=== PATIENT | female | born 1950 | race Caucasian/White ===

== ENCOUNTER 2017-06-17 22:00 | Observation (INO) | payer MEDICARE, OTHER, SELFPAY ==
[2017-06-17 22:01] VITALS: BP 132/62; PULSE 107; RESP 20; TEMP 36.7; O2SAT 94; BMI 43.1
--- NOTE | 2017-06-17 22:10 | EKG12_ITS ---
Test Reason : REPEAT Blood Pressure : / mmHG Vent. Rate : 091 BPM Atrial Rate : 091 BPM P-R Int : 172 ms QRS Dur : 084 ms QT Int : 376 ms P-R-T Axes : 035 -07 002 degrees QTc Int : 462 ms Normal sinus rhythm Normal ECG Confirmed by BRONWYN CUNNINGHAM MD ([id number]), editorial specialist EREN MELENDEZ ([id number]) on 06/18/2017 2:30:58 PM Referred By: ANDREI Confirmed By:BRONWYN CUNNINGHAM MD
--- NOTE | 2017-06-17 22:10 | NURSING ---
RN CALLED FOR EKG, PULLED OLD EKG FOR
--- NOTE | 2017-06-17 22:11 | RAD_ITS ---
STUDY: X-RAY CHEST REASON FOR EXAM: Female, 67 years old. Chest and mid back pain TECHNIQUE: Single AP portable view of the chest. COMPARISON: None. FINDINGS: monitoring specialist leads are present. The lungs are clear and expanded. There is no demonstrated pleural abnormality. There is mammillation of the hemidiaphragms which is of little clinical significance. Normal size heart. There is a retrocardiac double density consistent with moderate-sized hiatal hernia. Normal visualized pulmonary arteries. There are calcified plaques of the aortic arch. Normal visualized thoracic spine. Normal visualized ribs, clavicles, and shoulders. There is no demonstrated abnormality of the visualized soft tissue structures of the upper abdomen. RAD/Chest 1 View (Portable) IMPRESSION: Moderate sized hiatal hernia. Calcified plaques of the aortic arch. No acute cardiopulmonary disease process is seen. Electronically Signed: Artie Lin MD at 22:53 EST , Service support ,
[2017-06-17 22:13] VITALS: O2SAT 100
--- NOTE | 2017-06-17 22:14 | ED.DCSUM_ITS ---
- ER Visit Summary Date of Service: 06/17/17 Chief Complaint: Back pain, chest pain History of Present Illness: The patient is a 67 F 3 significant for prior stroke and hypertension but no known history of coronary vascular disease presents with atraumatic back pain that radiates into her left chest. The patient states her symptoms began about 2 days ago. She states that she noticed a dull ache in her left back between her shoulder blades. She states that the symptoms seem to be made worse when she would exert herself. Over the past 24 hours, it has radiated to her left chest. She states if she gets up and walks around, the pain seems to get worse and she will feel mildly short of breath and did get some nausea with it. She states she has never had pain like this before. She denies any fall. She has no history of pulmonary embolus. She has no known history of coronary vascular disease but does have history of prior stroke. She does not take anticoagulants. She denies having a recent stress test. Physical Examination: Vital signs reviewed General: Well-nourished, well-developed Head: Normocephalic, atraumatic Eyes: Pupils equal and reactive, extraocular muscles intact Neck, supple, no lymphadenopathy Heart: Regular rate and rhythm Respiratory: No distress, clear bilaterally Abdomen: Soft, nontender, nondistended, no peritoneal signs Back: Nontender Extremities: Nontender, no edema, no cords Skin: Normal color no rash Neuro: Alert and oriented, no focal or lateralizing deficits Test Results: EKG demonstrates sinus tachycardia. Screening labs relatively unremarkable. Chest x-ray demonstrates hiatal hernia but no other acute pathology. CTA of the chest shows no pulmonary embolus or dissection. Emergency Department Course and Treatment: The patient presents with back pain that began to radiate into her left chest. It is worse with exertion. She denies any history of coronary vascular disease, but does have history of prior stroke. She has not had a recent stress test. The patient was tachycardic. Initially on arrival, she was pain-free. However, her pain did return. I did repeat her EKG and it was still unremarkable without acute ischemic change. Labs relatively unremarkable. Cardiac enzymes are normal. The patient's tachycardia, back pain, and exertional dyspnea I did obtain a CTA which demonstrates a hiatal hernia, but no pulmonary embolus or other dangerous process.. At this time, I do feel the patient would benefit from admission for cardiac rule out given her age, risk factor, and exertional component. Patient was discussed with the hospitalist and will be admitted. Treatment Plan: [] Disposition: Admission Impression: Exertional chest pain with dyspnea This note was generated with [employer] dictation software. It may contain incorrect words, spelling, and punctuation that were not noted in review of the chart prior to signing ED Disposition - Plan for ED Patient: Chief Complaint: Chest Pain Referrals: Jeferson Vega MD [Primary Care Provider] -
[2017-06-17 22:18] LABS: Absolute Lymphocyte Count 3.27 X10^3/ul (0.83-4.51); Absolute Neutrophil Count 7.1 X10^3/uL (2.0-7.7); Basophil# 0.03 X10^3/uL; Basophil% 0.3 % (0-1); Eosinophil# 0.69 X10^3/uL; Eosinophils% 5.8 % (0-5); Hematocrit 38.7 % (37-47); Hemoglobin 12.7 g/dl (12.0-15.0); Lymphocyte # 3.27 X10^3/ul (4.0); Lymphocyte % 27.6 % (19-41); Mean Corp Hgb Conc 32.8 g/gl (32-36); Mean Corpuscular Hgb 28.2 pg (27.0-32.0); Mean Platelet Vol. 9.1 fl (6.2-12.0); Monocyte% 5.9 % (0-10); Neutrophil # 7.12 X10^3/uL (2.7-7.7); Neutrophil % 60.1 % (47-70); POSITIVE COUNT NO; POSITIVE DIFFERENTIAL NO; POSITIVE MORPHOLOGY NO; Platelet Count 225 K/mm3 (150-450); RBC Distribution Width CV 13.4 % (11.6-14.6); RBC Distribution Width SD 41.3 fl (35.1-43.9); White Blood Count 11.8 K/mm3 (4.4-11.0)
[2017-06-17] MEDS: Aspirin 81 MG TAB.CHEW 324 MG PO (22:19)
--- NOTE | 2017-06-17 22:34 | EKG12_ITS ---
Test Reason : CP Blood Pressure : / mmHG Vent. Rate : 111 BPM Atrial Rate : 111 BPM P-R Int : 178 ms QRS Dur : 078 ms QT Int : 334 ms P-R-T Axes : 044 005 018 degrees QTc Int : 454 ms Sinus tachycardia Otherwise normal ECG Confirmed by MARISA SCHULZ, BRONWYN ([id number]), brands editor EREN MELENDEZ ([id number]) on 06/18/2017 2:31:16 PM Referred By: TRINITY Confirmed By:BRONWYN CUNNINGHAM MD
--- NOTE | 2017-06-17 22:36 | CT_ITS ---
STUDY: CTA CHEST REASON FOR EXAM: Female, 67 years old. Chest and back pain x2 days RADIATION DOSAGE (If Supplied By Facility): CTDIvol = ( 26.27 ) mGy, DLP = ( 728.22 ) mGycm TECHNIQUE: The examination was performed with the intravenous administration of 100ML ml of Isovue 370 contrast material. Post-processing of the angiographic images was performed, with multiplanar reformation and 3D reconstruction. Individualized dose optimization techniques were used for this CT. COMPARISON: None. FINDINGS: Normal enhancement of the main pulmonary artery and right and left pulmonary arteries. Normal enhancement of the bilateral peripheral pulmonary arteries. There is no demonstrated pulmonary embolism. Normal thoracic aorta and visualized great vessels. There is no demonstrated aortic dissection. Normal heart and pericardium. There is a large hiatal hernia. There are several mediastinal nodes, the largest located in the region of the AP window measuring 1.2 cm in short axis. There is a precarinal node measuring 8 mm in short axis. Normal visualized trachea and bronchi. The lungs are well expanded. There are coarse fibrotic changes of the right upper lobe. There is a flat plaque-like focus of pleural thickening of the posterior lower left hemithorax measuring 8 mm at the base. Normal chest wall structures. There is diffuse endplate spondylosis of the visualized thoracolumbar spine. Calcified gallstones are seen within the gallbladder. CT/CTA Chest W/WO Contrast IMPRESSION: Normal CTA chest examination, without a demonstrated pulmonary embolism or arterial dissection. Large hiatal hernia. Coarse fibrotic changes of the right upper lobe. plaque-like focus of pleural thickening of the posterolateral lower left hemithorax measuring 8 mm at the base. Cholelithiasis. Electronically Signed: Artie Lin MD at 23:46 EST , Service support ,
[2017-06-17 22:41] LABS: Anion Gap 6 (5-15); BUN 20 mg/dL (7-18); BUN/Creat Ratio 17.1 RATIO (10-20); Calcium,Total 9.3 mg/dL (8.5-10.1); Chloride 107 mmol/L (98-107); Creatinine, Serum 1.17 mg/dL (0.55-1.02); EST Glomerular Filtration Rate 49 mL/min (>60); Est Glom Filt Rate - Afr Amer 59 mL/min (>60); Estimated Creatinine Clearance 34.24 ml/min; Glucose 103 mg/dL (74-106); Potassium 3.4 mmol/L (3.5-5.1); Sodium Level 139 mmol/L (136-145)
[2017-06-17 22:47] LABS: BNP,B-Type NATRIURETIC PEPTIDE 6.2 pg/mL (0-100)
[2017-06-17 23:13] VITALS: BP 130/63; PULSE 89; RESP 19; O2SAT 100
[2017-06-17 23:57] VITALS: BP 133/80; PULSE 82; RESP 15; TEMP 36.7; O2SAT 100
[2017-06-18] VITALS (9 sets, daily range): BP systolic 116–132; BP diastolic 49–77; PULSE 70–91; RESP 16–20; TEMP 36.4–36.6; O2SAT 98–99; BMI 42.6; BMI 42.7
--- NOTE | 2017-06-18 00:49 | HP.PCM_ITS ---
Problem List (1) Atypical chest pain Status: Acute (2) Hypertension Status: Chronic (3) History of poliomyelitis Status: Chronic (4) History of TIA (transient ischemic attack) Status: Chronic (5) Autoimmune hemolytic anemia Status: Chronic History of Present Illness Date of Admission: 06/18/17 Chief Complaint: Chest pain for 2-3 days The patient is a 67 year old F with history of hypertension on lisinopril/HCTZ came to ER with left-sided back pain with radiation to chest for last 2 days. She denies chronic back pain. Started having left-sided thoracic back pain for last 2 days, intermittently which got worse and more frequent with radiation to the front of the chest on the left side. She denies shortness of breath, dizziness, palpitation, missed heartbeat or syncope. She has history of 2 TIAs, about 5-10 years ago which was associated with difficulty in finding words for about 4 hours. She did not have any residual neurological deficit. She also had poliomyelitis when she was inflamed and her right leg is shorter and difficulty in walking. She also has history of autoimmune hemolytic anemia but has resolved now as per the patient. Hemoglobin is 12.7 g percent. Platelet count 225,000 She has positive family history with her father due to HI in his 40s. Her 2 brother has A. fib. In ED, EKG shows normal sinus rhythm at 91 bpm T inversion in V1 and V2 leads. She had CT angiogram of chest which shows no PE but large hiatus hernia. It shows chronic fibrotic change in the right upper lobe and plaque-like focus of pleural thickening of the posterolateral lower left hemithorax about 8 mm at the base [] Past Medical History Past Medical History (Chronic Problems): Chronic Problems Hypertension (Chronic) History of poliomyelitis (Chronic) History of TIA (transient ischemic attack) (Chronic) Autoimmune hemolytic anemia (Chronic) Allergies cephalexin [From Keflex] Allergy (Verified 06/17/17 22:11) Hives Penicillins Allergy (Verified 06/17/17 22:11) Hives Home Medications: Ambulatory Orders Medication Instructions Recorded Aspirin 81 mg PO DAILY 06/17/17 Cholecalciferol (Vitamin D3) 1,000 unit PO DAILY 06/17/17 [Vitamin D3] Lisinopril/Hydrochlorothiazide 2 tab PO DAILY 06/17/17 [Zestoretic 20/12.5 Tablet] Cetirizine HCl [Zyrtec] 10 mg PO DAILY 06/18/17 Smoking Status: Never smoker - *Family History Paternal History Items: Heart Disease - Her father of HI at 45 years of age Review of Systems Constitutional: Denies: Chills, Fever, Weight Change HEENT: Denies: Head Aches, Sinus Congestion, Sinus Drainage Cardiovascular: Reports: Chest Pain. Denies: Palpitations Respiratory: Denies: Cough, Shortness of breath at rest, Sputum production Gastrointestinal: Denies: Abdominal Pain, Nausea, Vomiting Genitourinary: Denies: Dysuria Musculoskeletal: Reports: Back Pain, Joint Pain, Joint swelling. Denies: Joint Tenderness Skin: Denies: Rash, Wounds Neurological: Denies: Numbness, Tingling, Focal weakness Psychiatric: Denies: Anxiety, Depression, Homicidal Ideations, Suicidal Ideations Hematologic/ Lymphatic: Denies: Easy Bruising, Easy Bleeding VTE Information - Inpt Only VTE Present on Admission: No VTE Mechan Device Prophylaxis: SCD's VTE Pharm Prophylaxis ordered?: Yes Patient Problems: Active and Suspected Problems Atypical chest pain (Acute) - Physical Exam General: Alert, Oriented x3, Cooperative HEENT: Atraumatic, PERRLA, EOMI, Normocephalic Neck: Supple, No JVD, Negative Carotid Bruits Lungs: Clear to auscultation, Normal air movement, No rhonchi, No wheeze, No rales Cardiovascular: Regular rate, No murmurs Abdomen: Bowel Sounds Present, Soft, Non Tender, Non-Distended Extremities: No edema, Capillary Refill Less than 3 Seconds Skin: No rashes - No vesicular or macular papular rash and thoracic spine region. No features suggestive of herpes rash., No breakdown Musculoskeletal: No Tenderness to Palpation of Joints or Extremities Neurological: Cranial nerves II-XII grossly intact Psych/Mental Status: Normal Affect, Appropriate Vital Signs Temp Pulse Resp BP Pulse Ox 97.6 F L 90 18 117/49 L 99 06/18/17 00:30 06/18/17 00:30 06/18/17 00:30 06/18/17 00:31 06/18/17 00:30 Oxygen Flow Rate 2 Oxygen Delivery Method Room Air Weight: 225 lb 12.054 oz Body Mass Index (BMI) 42.6 Laboratory Tests Past 24 Hrs 02/06/17/17 06/17/17 22:08 22:08 22:08 WBC 11.8 H RBC 4.50 Hgb 12.7 Hct 38.7 MCV 86.0 MCH 28.2 MCHC 32.8 RDW 13.4 RDW Differential 41.3 Plt Count 225 MPV 9.1 Immature Gran % (Auto) 0.300 Neut % (Auto) 60.1 Lymph % (Auto) 27.6 [place] % (Auto) 5.9 Eos % (Auto) 5.8 H Baso % (Auto) 0.3 Absolute Neuts (auto) 7.1 Absolute Lymphs (auto) 3.27 Total Counted Not Reportable Sodium 139 Potassium 3.4 L Chloride 107 Carbon Dioxide 26.0 Anion Gap 6 BUN 20 H Creatinine 1.17 H Estim Creat Clear Calc 34.24 Est GFR (MDRD) Af Amer 59 L Est GFR (MDRD) Non-Af 49 L BUN/Creatinine Ratio 17.1 Glucose 103 Calcium 9.3 Troponin I < 0.02 B-Natriuretic Peptide 6.2 Assessment/Plan Active and Suspected Problems Atypical chest pain (Acute) The patient is a 67 year old F with history of hypertension on lisinopril/HCTZ came to ER with left-sided back pain with radiation to chest for last 2 days. She denies chronic back pain. Started having left-sided thoracic back pain for last 2 days, intermittently which got worse and more frequent with radiation to the front of the chest on the left side. She denies shortness of breath, dizziness, palpitation, missed heartbeat or syncope. She has history of 2 TIAs, about 5-10 years ago which was associated with difficulty in finding words for about 4 hours. She did not have any residual neurological deficit. She also had poliomyelitis when she was inflamed and her right leg is shorter and difficulty in walking. She also has history of autoimmune hemolytic anemia but has resolved now as per the patient. Hemoglobin is 12.7 g percent. Platelet count 225,000 She has positive family history with her father due to HI in his 40s. Her 2 brother has A. fib. In ED, EKG shows normal sinus rhythm at 91 bpm T inversion in V1 and V2 leads. She had CT angiogram of chest which shows no PE but large hiatus hernia. It shows chronic fibrotic change in the right upper lobe and plaque-like focus of pleural thickening of the posterolateral lower left hemithorax about 8 mm at the base. 1. Atypical left upper back pain with radiation to chest possible spinal neuropathy; rule out acute coronary syndrome: Patient is being admitted on the PCU floor. On ACS protocol with serial cardiac enzymes. If troponins are negative, Lexiscan nuclear stress test tomorrow morning. Fasting lipid profile tomorrow a.m. There is also possibility of possible GERD with large hiatus hernia. If patient continues to have thoracic spine pain/radicular pain, will need outpatient thoracic spine MRI. 2. Hypertension: Blood pressure is controlled. Resume home medication, lisinopril/HCTZ. 3. Large hiatus hernia on CT scan: Patient denies heartburn/acid reflux. Started on Protonix 40 mg daily. Prior history of TIA, history of autoimmune hemolytic anemia: Resolved. As per the patient her hemoglobin is good. No anemia or thrombocytopenia. Patient does not see a health care law specialist. 4. History of poliomyelitis with residual right leg shortening and arthritis and difficulty in walking: PT assessment. DVT prophylaxis: On Lovenox and bilateral SCDs. Laboratory Results 06/17/17 22:08: WBC 11.8 H, RBC 4.50, Hgb 12.7, Hct 38.7, MCV 86.0, MCH 28.2, MCHC 32.8, RDW 13.4, RDW Differential 41.3, Plt Count 225, MPV 9.1, Immature Gran % (Auto) 0.300, Neut % (Auto) 60.1, Lymph % (Auto) 27.6, [place] % (Auto) 5.9 , Eos % (Auto) 5.8 H, Baso % (Auto) 0.3, Absolute Neuts (auto) 7.1, Absolute Lymphs (auto) 3.27, Total Counted Not Reportable 06/17/17 22:08: Sodium 139, Potassium 3.4 L, Chloride 107, Carbon Dioxide 26.0, Anion Gap 6, BUN 20 H, Creatinine 1.17 H, Estim Creat Clear Calc 34.24, Est GFR (MDRD) Af Amer 59 L, Est GFR (MDRD) Non-Af 49 L, BUN/Creatinine Ratio 17.1, Glucose 103, Calcium 9.3, Troponin I < 0.02 06/17/17 22:08: B-Natriuretic Peptide 6.2 Clinical Impression(s) from Imaging Studies Chest X-Ray 06/17/17 22:11 IMPRESSION: Moderate sized hiatal hernia. Calcified plaques of the aortic arch. No acute cardiopulmonary disease process is seen. Chest CTA 06/17/17 22:36 IMPRESSION: Normal CTA chest examination, without a demonstrated pulmonary embolism or arterial dissection. Large hiatal hernia. Coarse fibrotic changes of the right upper lobe. plaque-like focus of pleural thickening of the posterolateral lower left hemithorax measuring 8 mm at the base. Cholelithiasis. Code Visit OBSV E&M: 59847 Initial observation care L3
[2017-06-18] MEDS: 0.9% Normal Saline 1,000 ML 75 ML IV (01:49)
[2017-06-18 02:10] LABS: Absolute Lymphocyte Count 3.14 X10^3/ul (0.83-4.51); Absolute Neutrophil Count 4.8 X10^3/uL (2.0-7.7); Basophil# 0.04 X10^3/uL; Basophil% 0.4 % (0-1); Eosinophils% 6.5 % (0-5); Hematocrit 35.7 % (37-47); Hemoglobin 11.5 g/dl (12.0-15.0); Lymphocyte # 3.14 X10^3/ul (4.0); Mean Corp Hgb Conc 32.2 g/gl (32-36); Mean Corpuscular Volume 86.9 fL (81-99); Mean Platelet Vol. 8.8 fl (6.2-12.0); Monocyte# 0.64 X10^3/uL; Monocyte% 6.9 % (0-10); Neutrophil # 4.81 X10^3/uL (2.7-7.7); Neutrophil % 52.1 % (47-70); POSITIVE COUNT NO; POSITIVE DIFFERENTIAL NO; POSITIVE MORPHOLOGY NO; Platelet Count 199 K/mm3 (150-450); RBC Distribution Width CV 13.6 % (11.6-14.6); RBC Distribution Width SD 41.6 fl (35.1-43.9); Red Blood Count 4.11 M/mm3 (4.2-5.4); White Blood Count 9.2 K/mm3 (4.4-11.0)
[2017-06-18 02:49] LABS: Cholesterol 148 mg/dL (200); High Density Lipoprotein 40 mg/dL; Magnesium 1.9 mg/dL (1.6-2.6); Thyroid Stim Hormone (TSH) 3.12 uIU/mL (0.358-3.74); Triglycerides 92 mg/dL; Very Low Density Lipoprotein 18 mg/dL (5-40)
[2017-06-18] MEDS: Lisinopril 40 MG Tablet PO (05:39)
[2017-06-18] MEDS: Aspirin E.C. 81 MG Tablet PO (05:39)
[2017-06-18 05:51] LABS: International Normalized Ratio 1.1; Prothrombin Time (Protime)PT. 13.8 SECONDS (11.7-14.9)
[2017-06-18 05:52] LABS: Partial Thromboplast Time 30.1 Seconds (24.1-36.2)
--- NOTE | 2017-06-18 05:55 | EKG12_ITS ---
Test Reason : AM EKG Blood Pressure : / mmHG Vent. Rate : 070 BPM Atrial Rate : 070 BPM P-R Int : 170 ms QRS Dur : 082 ms QT Int : 408 ms P-R-T Axes : 031 002 -07 degrees QTc Int : 440 ms Normal sinus rhythm Inferior infarct , age undetermined Abnormal ECG When compared with ECG of 17-JUN-2017 22:31, MANUAL COMPARISON REQUIRED, DATA IS UNCONFIRMED Confirmed by MARISA SCHULZ, BRONWYN ([id number]), editor newspaper EREN MELENDEZ ([id number]) on 06/25/2017 1:24:02 PM Referred By: DR GILBERT Confirmed By:BRONWYN CUNNINGHAM MD
[2017-06-18 06:18] LABS: Anion Gap 8 (5-15); BUN 20 mg/dL (7-18); BUN/Creat Ratio 16.5 RATIO (10-20); Calcium,Total 8.6 mg/dL (8.5-10.1); Chloride 106 mmol/L (98-107); Creatinine, Serum 1.21 mg/dL (0.55-1.02); EST Glomerular Filtration Rate 47 mL/min (>60); Est Glom Filt Rate - Afr Amer 57 mL/min (>60); Estimated Creatinine Clearance 33.11 ml/min; Glucose 91 mg/dL (74-106); Potassium 3.7 mmol/L (3.5-5.1); Sodium Level 141 mmol/L (136-145)
--- NOTE | 2017-06-18 09:03 | STRESSREP_ITS ---
Stress Test Report Pharmacologic myocardial perfusion stress test. 67-year-old lady with a history of chest pain. Medications lisinopril hydrochlorothiazide. Stress protocol: Resting EKG demonstrates normal sinus rhythm with a rate of 74 bpm. Normal intervals noted. The resting blood pressure is 132/82 mmHg. 0.4 mg of regadenoson was infused per usual protocol followed by rapid intravenous saline flush injection. Continuous EKG monitoring was performed. The maximum heart rate attained was 102 bpm which was 67% of the maximum predicted heart rate the maximum workload was 1 metabolic equivalent. The resting blood pressure is 132/ 82 final blood pressure is 118/62. Myocardial perfusion protocol. 14.6 mCi of technetium 99m sestamibi was injected at rest. 0.4 mg of regadenoson was infused per usual protocol. At peak infusion 44.7 mCi of technetium 99m sestamibi was injected. Stress images were obtained. Stress and rest images were reconstructed and compared in the short axis vertical long and horizontal long axis. Gated images were also obtained. Perfusion SPECT analysis. Review of the stress images demonstrate normal uptake of tracer noted in all areas of the myocardium. The resting images similarly demonstrated normal uptake of tracer noted in all areas of the myocardium. No areas of reversibility are noted suggest ischemia and no previous infarct is noted. Gated SPECT analysis: The gated ejection fraction is noted to be approximately 87% with no regional wall motion abnormalities noted. Conclusion: Normal pharmacologic myocardial perfusion stress test. Preserved ejection fraction.
[2017-06-18] MEDS: Loratadine 10 MG Tablet PO (09:25)
[2017-06-18] MEDS: Pantoprazole Sodium 40 MG Tablet PO (09:25)
--- NOTE | 2017-06-18 10:41 | PCM.DC ---
- Discharge Diagnoses Current Active Problems: Current Active and Chronic Problems Atypical chest pain (Acute) Hypertension (Chronic) History of poliomyelitis (Chronic) History of TIA (transient ischemic attack) (Chronic) Autoimmune hemolytic anemia (Chronic) You will use the following diet at home:: Regular Instructions: ED Chest Pain NonCardiac Allergies/Adverse Reactions: Allergies cephalexin [From Keflex] Allergy (Verified 06/17/17 22:11) Hives Penicillins Allergy (Verified 06/17/17 22:11) Hives Medications to take at Discharge Aspirin 81 mg PO DAILY 06/17/17 Cholecalciferol (Vitamin D3) [Vitamin D3] 1,000 unit PO DAILY 06/17/17 Lisinopril/Hydrochlorothiazide [Zestoretic 20/12.5 Tablet] 2 tab PO DAILY 06/17/17 Cetirizine HCl [Zyrtec] 10 mg PO DAILY 06/18/17 Pantoprazole Sodium [Protonix] 40 mg PO DAILY #60 tab 06/18/17 The following prescriptions were given: Pantoprazole Sodium [Protonix] 40 mg PO DAILY #60 tab Primary Care Physician: Jeferson Vega MD [Primary Care Provider] - Please follow up with your Primary Care Physician in: in 1-2 weeks Proposed Discharge Date: 06/18/17
--- NOTE | 2017-06-18 10:42 | PCM.DC.SUM ---
Discharge Date and Diagnosis - Problem List Patient Problems: Active and Suspected Problems Atypical chest pain (Acute) Date of Admission: 06/18/17 Date of Discharge: 06/18/17 - Primary Discharge Diagnosis Active and Suspected Problems Atypical chest pain (Acute) - Secondary Discharge Diagnosis Chronic Problems Hypertension (Chronic) History of poliomyelitis (Chronic) History of TIA (transient ischemic attack) (Chronic) Autoimmune hemolytic anemia (Chronic) Hospital Course and Treatment Imaging Results: Clinical Impression(s) from Imaging Studies Chest X-Ray 06/17/17 22:11 IMPRESSION: Moderate sized hiatal hernia. Calcified plaques of the aortic arch. No acute cardiopulmonary disease process is seen. Electronically Signed: Artie Lin MD at 22:53 EST , Service support , Chest CTA 06/17/17 22:36 IMPRESSION: Normal CTA chest examination, without a demonstrated pulmonary embolism or arterial dissection. Large hiatal hernia. Coarse fibrotic changes of the right upper lobe. plaque-like focus of pleural thickening of the posterolateral lower left hemithorax measuring 8 mm at the base. Cholelithiasis. Electronically Signed: Artie Lin MD at 23:46 EST , Service support , Summary of Care Provided: Patient is a 67-year-old lady with past medical history cigar for hypertension who presented with chest pain 1. Atypical chest pain due to hiatal hernia: Patient was placed on a monitored bed did rule out [place] with serial cardiac enzymes underwent a nuclear stress test which is negative for stress-induced ischemia. As part of her management patient had CT Angio of the chest which demonstrated no PE however she was found to have a large hiatus hernia it was felt atypical chest pain was from this she was therefore discharged home on PPI 2. Large hiatal hernia patient was discharged home on PPI instructed to follow-up with Dr. Vega her PCP for subsequent referral to surgery for possible fundoplication 3. Obesity with BMI of 42.7 weight loss recommended 4. Hypertension-blood pressure controlled, home medications continued with dose adjustment as needed 5. History of TIA 6. History of autoimmune hemolytic anemia 7. History of poliomyelitis with residual right leg shortening 8. DVT prophylaxis SC Lovenox Discharge Diet: No Restrictions Discharge Activity: Return to Normal Activity Home Medications: Medications to take at Discharge Aspirin 81 mg PO DAILY 06/17/17 Cholecalciferol (Vitamin D3) [Vitamin D3] 1,000 unit PO DAILY 06/17/17 Lisinopril/Hydrochlorothiazide [Zestoretic 20/12.5 Tablet] 2 tab PO DAILY 06/17/17 Cetirizine HCl [Zyrtec] 10 mg PO DAILY 06/18/17 Pantoprazole Sodium [Protonix] 40 mg PO DAILY #60 tab 06/18/17 Following Prescrptions Were Given to Patient: Pantoprazole Sodium [Protonix] 40 mg PO DAILY #60 tab Primary Care Physician: Jeferson Vega MD [Primary Care Provider] - Please follow up with your Primary Care Physician in: in 1-2 weeks Patient Instructions: ED Chest Pain NonCardiac Disposition: Home Minutes spent on discharge:: 35 Patient Condition:: Stable Meaningful Use Info Meaningful Use Diagnoses (Choose all that apply): None applicable Code Visit OBSV E&M: 08427 Observation care discharge
--- NOTE | 2017-06-18 10:46 | DS.PCM_ITS ---
Discharge Date and Diagnosis - Problem List Patient Problems: Active and Suspected Problems Atypical chest pain (Acute) Date of Admission: 06/18/17 Date of Discharge: 06/18/17 - Primary Discharge Diagnosis Active and Suspected Problems Atypical chest pain (Acute) - Secondary Discharge Diagnosis Chronic Problems Hypertension (Chronic) History of poliomyelitis (Chronic) History of TIA (transient ischemic attack) (Chronic) Autoimmune hemolytic anemia (Chronic) Hospital Course and Treatment Imaging Results: Clinical Impression(s) from Imaging Studies Chest X-Ray 06/17/17 22:11 IMPRESSION: Moderate sized hiatal hernia. Calcified plaques of the aortic arch. No acute cardiopulmonary disease process is seen. Electronically Signed: Artie Lin MD at 22:53 EST , Service support , Chest CTA 06/17/17 22:36 IMPRESSION: Normal CTA chest examination, without a demonstrated pulmonary embolism or arterial dissection. Large hiatal hernia. Coarse fibrotic changes of the right upper lobe. plaque-like focus of pleural thickening of the posterolateral lower left hemithorax measuring 8 mm at the base. Cholelithiasis. Electronically Signed: Artie Lin MD at 23:46 EST , Service support , Summary of Care Provided: Patient is a 67-year-old lady with past medical history cigar for hypertension who presented with chest pain 1. Atypical chest pain due to hiatal hernia: Patient was placed on a monitored bed did rule out LA with serial cardiac enzymes underwent a nuclear stress test which is negative for stress-induced ischemia. As part of her management patient had CT Angio of the chest which demonstrated no PE however she was found to have a large hiatus hernia it was felt atypical chest pain was from this she was therefore discharged home on PPI 2. Large hiatal hernia patient was discharged home on PPI instructed to follow- up with Dr. Vega her PCP for subsequent referral to surgery for possible fundoplication 3. Obesity with BMI of 42.7 weight loss recommended 4. Hypertension-blood pressure controlled, home medications continued with dose adjustment as needed 5. History of TIA 6. History of autoimmune hemolytic anemia 7. History of poliomyelitis with residual right leg shortening 8. DVT prophylaxis SC Lovenox Discharge Diet: No Restrictions Discharge Activity: Return to Normal Activity Home Medications: Medications to take at Discharge Aspirin 81 mg PO DAILY 06/17/17 Cholecalciferol (Vitamin D3) [Vitamin D3] 1,000 unit PO DAILY 06/17/17 Lisinopril/Hydrochlorothiazide [Zestoretic 20/12.5 Tablet] 2 tab PO DAILY Cetirizine HCl [Zyrtec] 10 mg PO DAILY 06/18/17 Pantoprazole Sodium [Protonix] 40 mg PO DAILY #60 tab 06/18/17 Following Prescrptions Were Given to Patient: Pantoprazole Sodium [Protonix] 40 mg PO DAILY #60 tab Primary Care Physician: Jeferson Vega MD [Primary Care Provider] - Please follow up with your Primary Care Physician in: in 1-2 weeks Patient Instructions: ED Chest Pain NonCardiac Disposition: Home Minutes spent on discharge:: 35 Patient Condition:: Stable Meaningful Use Info Meaningful Use Diagnoses (Choose all that apply): None applicable Code Visit OBSV E&M: 16792 Observation care discharge
== END 2017-06-18 12:06 | disposition home or self-care (01) ==
LOC: ED 22:32 → PCU 06-18 00:09
PROVIDERS: Admitting Provider Internal Medicine; Emergency Provider Emergency Medicine; Family Provider Internal Medicine; PCP Internal Medicine; Visit Provider Internal Medicine
DX: R07.89 Other chest pain (principal); Z86.73 Personal history of transient ischemic attack (TIA), and cerebral infarction without residual deficits; I10 Essential (primary) hypertension; I25.10 Atherosclerotic heart disease of native coronary artery without angina pectoris; R06.02 Shortness of breath; R11.0 Nausea; E87.6 Hypokalemia; Z86.12 Personal history of poliomyelitis; D59.1 Other autoimmune hemolytic anemias; M54.6 Pain in thoracic spine; R26.2 Difficulty in walking, not elsewhere classified; K44.9 Diaphragmatic hernia without obstruction or gangrene; Z79.899 Other long term (current) drug therapy; Z79.82 Long term (current) use of aspirin; E66.9 Obesity, unspecified; Z68.41 Body mass index [BMI] 40.0-44.9, adult; Z71.3 Dietary counseling and surveillance
CPT/HCPCS: 36415; 71045; 71275; 78452; 80048; 80061; 83735; 83880; 84443; 84484; 85025; 85610; 85730; 93005; 93017; 96360; 96361; 99218; 99283; A9500; J7030; Q9967; A4216; G0378; J2785

== ENCOUNTER 2021-12-25 09:02 | Outpatient (RCR) | payer MEDICARE, BC, SELFPAY ==
[2021-12-25 09:23] VITALS: BP 159/84; PULSE 96; TEMP 36.1; BMI 41.5
== END 2022-01-18 23:59 | disposition home or self-care (01) ==
LOC: WC 09:02
PROVIDERS: PCP Internal Medicine; Visit Provider Surgery
DX: Z00.00 Encounter for general adult medical examination without abnormal findings (principal)

== ENCOUNTER 2022-02-15 08:45 | Outpatient (RCR) | payer MEDICARE, BC, SELFPAY ==
[2022-01-19 00:26] VITALS: BP 159/84; PULSE 96; TEMP 36.1; BMI 41.5
[2022-02-12 09:11] VITALS: BP 136/56; PULSE 110; RESP 20; TEMP 36.1; BMI 36.7
--- NOTE | 2022-02-12 14:50 | HP.PCM_ITS ---
History of Present Illness Date of Service: 02/12/22 Chief Complaint: Venous stasis ulceration, pretibial area of the left lower extremity History of Wound: This is a 71-year-old female who has had chronic recurring ulcerations in her lower extremities. These of been thought to be due to chronic venous disease. The ulcerations have been associated with swelling. The swelling is said to be worse toward the evening. She has recently been treated with oral antibiotics, including Bactrim and Levaquin. She has been under the care of Dr. Hall, claim investigator, who has been utilizing zinc wraps to the lower extremities. This therapy has been effective and successful in healing the patient's ulcerations in the past, but current management has been ineffective, and the patient has been referred for further management. The patient is ambulatory and relatively active. She sleeps on a flat mattress at night. However, she typically spends long hours each day sitting. She denies a history of thrombophlebitis. She is obese, with a BMI of 36.7. 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, right lower leg Venous stasis dermatitis of both lower extremities Venous stasis ulcer Home Medications Lisinopril/Hydrochlorothiazide [Zestoretic 20/12.5 Tablet] 2 tab PO DAILY bp 06/17/17 [History Last Taken 06/17/17] aspirin 81 mg chewable tablet 81 mg PO DAILY HEART HEALTH 06/17/17 [History Last Taken 06/17/17] cholecalciferol (vitamin D3) 25 mcg (1,000 unit) capsule (Vitamin D3) 1,000 unit PO DAILY SUPPLEMENT 06/17/17 [History Last Taken 06/17/17] cetirizine 10 mg tablet (Zyrtec) 10 mg PO DAILY ALLERGIES 06/18/17 [History Last Taken 06/17/17] pantoprazole 40 mg tablet,delayed release 40 mg PO DAILY #60 tabs 06/18/17 [Rx Last Taken Unknown] Allergy/AdvReac Type Severity Reaction Status Date / Time cephalexin [From Keflex] Allergy Hives Verified 06/17/17 22:11 Penicillins Allergy Hives Verified 06/17/17 22:11 Surgical History Status post appendectomy Social History Smoking Status: Never smoker Vital Signs Vital Signs Vital Signs: 02/12/22 09:11 Temperature 97 F L Temperature Source Temporal Pulse Rate 110 H Respiratory Rate 20 H Blood Pressure 136/56 H Blood Pressure Mean 82 Blood Pressure Source Monitor Weight Weight: 200 lb 14.792 oz Body Mass Index (BMI) 36.7 Physical Exam Const alert, oriented x3, no apparent distress and well nourished Constitutional Narrative: The patient is obese, with a BMI of 36.7. General Appearance: cooperative, comfortable, well kempt and well developed Orientation / Consciousness: awake, oriented to person, oriented to place and oriented to time HEENT normocephalic and head/scalp atraumatic Head and Scalp: normal to inspection, normocephalic and atraumatic External Ear: external ears normal Eyes PERRL and EOMs intact bilaterally General Eye: normal appearance of both eyes Resp normal respiratory effort, normal air movement, no retractions and no use of accessory muscles Effort and Inspection: able to speak in complete sentences Extremity no calf tenderness General Extremity: Negative for clubbing or cyanosis Skin Wound Narrative: Slight swelling and edema are noted of the patient's lower extremities bilaterally. Scaly venous stasis dermatitis is noted in the right pretibial area. Venous stasis dermatitis is also noted in the left pretibial area, with a centralized ulceration. The ulceration extends through the dermal layers and into the subcutaneous layer. There is no sign of infection or cellulitis. There is a moderate amount of bioburden. Dimensions are documented elsewhere. Neuro oriented x3, CN's II-XII intact bilaterally and moves all extremities Sensorium / Orientation: awake, alert, oriented to person, oriented to place and oriented to time Psych Appearance: grossly normal and appropriate Attitude: calm Activity / Motor Behavior: appropriate eye contact Speech: normal speech Mood & Affect: euthymic mood Thought Process: normal thought process Thought Content: normal thought content Attention / Concentration: attention grossly intact Debridement Note Debridement Note Wound debrided: Left pretibial venous ulceration Laterality: Left Type of Debridement: Excisional debridement Anesthesia Used: 5% Lidocaine Gel Depth: Down to and including healthy tissue and in the subcutaneous layer Percentage of wound debrided: 100 Instrument Used: 5mm curette Severity: Fat Layer Exposed Bleeding Controlled with: Compression and gauze Patient tolerated procedure: Patient tolerated procedure well Post-Debridement Measurements and Additional Note: Post-Debridement Measurements/Treatment - Nurse 1 - General Ulcer Assessment Start: 02/12/22 09:02 Freq: Status: Active Protocol: LOCO Activity Type Activity Date Activity User E-sign Co-sign Detail Recorded Client Recorded Date Recorded By Document 02/12/22 09:11 DL [id number] 02/12/22 09:33 DL 02/12/22 09:11 - Today's Visit Information Type of service Initial Visit Arrival Mode Ambulatory Transfer Assistance None Patient Identification Verified (Name & Yes ) Patient Requires Transmission-Based No Precautions Height and Weight Height 5 ft 2 in Weight 200 lb 14.792 oz Weight in Pounds 200.9 lbs Body Mass Index (BMI) 36.7 BMI Classification Obese BSA - Sundeep 1.92 Vital Signs Temperature (97.8 F-99.1 F) 97 F L Temperature Source Temporal Pulse Rate (60-100) 110 H Pulse Location Monitor Respiratory Rate (12-18) 20 H Respiratory rate source Observation Blood Pressure (90/60-120/80) 136/56 H Blood Pressure Mean 82 Source Monitor History Since Last Visit- (Skip if this is Patient's initial visit) Left Footwear Regular Shoe Right Footwear Regular Shoe Pain Scale: 0-10 Numeric Is Patient Pain Free? Yes Lower Extremity Assessment/ Foot Assessment/ Toe Nail Assessment Left -Posterior Tibial Palpable No -Posterior Tibial Doppler Multiphasic -Dorsalis Pedis Palpable No -Dorsalis Pedis Doppler Multiphasic -Extremity Color Hyperpigmented -Hair Growth on Legs No -Hair Growth on Toes No -Temperature of Extremity Warm -Capillary Refill Less than 3 Seconds -Dependent Rubor No -Blanched when Elevated No -Lipodermatosclerosis No -Other Deformity No -Prior Foot Ulcer No -Charcot Joint No -Prior Amputation No -Thick Yes -Discolored Yes -Deformed Yes -Improper Length & Hygeine Yes Right -Posterior Tibial Doppler Multiphasic -Dorsalis Pedis Palpable No -Dorsalis Pedis Doppler Multiphasic -Extremity Color Hyperpigmented -Hair Growth on Legs No -Hair Growth on Toes No -Temperature of Extremity Warm -Capillary Refill Less than 3 Seconds -Dependent Rubor No -Blanched when Elevated No -Lipodermatosclerosis No -Other Deformity No -Prior Foot Ulcer No -Charcot Joint No -Prior Amputation No -Thick Yes -Discolored Yes -Deformed Yes -Improper Length & Hygeine Yes Neuropathy Assessment Feet - Top Side and Bottom <Entered> (a) Communication Assessment Preferred language [place] 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 No Able to Read Yes Able to Write Yes Communication Tools None Right Hearing Abillity Normal Left Hearing Abillity Normal Visual Assistive Devices Glasses Teaching Assessment Preferences Verbal,Written, Demonstration Barriers to Learning None Readiness To Learn Good Willingness to Engage in Self Management Med Activies Readiness to Engage in Self Management Med Activities Anxiety Level Calm Cooperation Cooperative Perception Coherent Interest in Health Problem Asks Questions Education Importance Acknowledges Need Does Patient Smoke tobacco or other No substances Smoking Status Never smoker Is Patient Diabetic Yes Functional Assessment Recent Decline in Ability to Perform Denies Any Declines Teaching: Wound Center Discharge Instructions -Person Taught Patient Dressing Your Wound -Person Taught Patient *Welcome to the Wound Center -Person Taught Patient (a) 1 - + WC - Nurse 1 - General Ulcer Measurement Start: 02/12/22 09:02 Freq: Status: Active Protocol: Activity Type Activity Date Activity User E-sign Co-sign Detail Recorded Client Recorded Date Recorded By Document 02/12/22 09:11 DL [id number] 02/12/22 09:33 DL 02/12/22 09:11 Wound Center Nurse 1 #1 L Muniz -Current Size (cm) - Length 5.6 -Current Size (cm) - Width 6 -Current Size (cm) - Depth 0.1 -Total Square Cm 33.6 -Photo Taken Yes -Classification - Thickness Full Thickness without Exposed Support Structure -Exudate Amt Medium -Exudate Type Serosanguineous -Wound Margin Distinct, Outline Attached -Granulation Amt Medium (34-66%) -Granulation Quality Pale,[place] -Necrosis Amt Medium (34-66%) -Necrotic Tissue Type Adherent Slough -Structure Exposed N/A -Texture (Lety-wound Skin Appearance) Localized Edema ,Scarring -Moisture (Lety-wound Skin Appearance) Dry/Scaly -Color (Lety-wound Skin Appearance) Hemosiderin Staining -Temperature (Lety-wound Skin No Abnormality Appearance) (Pt Warm) -Tenderness on Palpation (Lety-wound No Skin Appearance) -Ulcer Cleansing Soap and Water -Foul Odor after Cleansing No -Anesthetic Used 4% Lidocaine Solution Right Calf (cm) 35.5 Right Ankle (cm) 28 Left Calf (cm) 43.5 Left Ankle (cm) 29 WC - Nurse 2 - General Ulcer CM Notes Start: 02/12/22 09:02 Freq: Status: Active Protocol: Activity Type Activity Date Activity User E-sign Co-sign Detail Recorded Client Recorded Date Recorded By Document 02/12/22 14:02 PL [id number] 02/12/22 14:03 PL 02/12/22 14:02 Wound Center Nurse 2 #1 L Muniz -Time 09:43 -Procedure Performed No -Wound/Ulcer Outcome Not Healed Pain Scale: 0-10 Numeric Is Patient Pain Free? Yes - Nurse 3 - General Ulcer D/C NN Start: 02/12/22 09:02 Freq: Status: Active Protocol: Activity Type Activity Date Activity User E-sign Co-sign Detail Recorded Client Recorded Date Recorded By Document 02/12/22 10:12 DL [id number] 02/12/22 10:13 DL 02/12/22 10:12 Wound Care Nurse 3 #1 L Muniz -Ulcer Cleansing Soap and Water -Foul Odor after Cleansing No johny -Multi-Layered Wrap Application Unna Boot - Bilateral ($) -Unna Boots (Bilat) ($) 1 Treatment Response Procedure Tolerated Well Pain Scale: 0-10 Numeric Is Patient Pain Free? Yes WC - Visit Discharge Discharge Condition Stable Ambulatory Status Ambulatory Transportation Private Auto Assessment/Plan Assessment/Plan (1) Venous stasis ulcer: CODE(S): I83.009 - Varicose veins of unspecified lower extremity with ulcer of unspecified site; L97.909 - Non-pressure chronic ulcer of unspecified part of unspecified lower leg with unspecified severity QUALIFIERS: Venous stasis ulcer site: calf Varicose vein presence: with varicose veins Laterality: left Non-pressure ulcer stage: with fat layer exposed Qualified Code(s): I83.022 - Varicose veins of left lower extremity with ulcer of calf; L97.222 - Non-pressure chronic ulcer of left calf with fat layer exposed (2) Venous stasis dermatitis of both lower extremities: CODE(S): I87.2 - Venous insufficiency (chronic) (peripheral) (3) Chronic venous insufficiency: CODE(S): I87.2 - Venous insufficiency (chronic) (peripheral) (4) Hypertension: CODE(S): I10 - Essential (primary) hypertension (5) History of poliomyelitis: CODE(S): Z86.12 - Personal history of poliomyelitis (6) History of TIA (transient ischemic attack): CODE(S): Z86.73 - Personal history of transient ischemic attack (TIA), and cerebral infarction without residual deficits (7) Autoimmune hemolytic anemia: (8) Cerebrovascular disease: CODE(S): I67.9 - Cerebrovascular disease, unspecified (9) Chronic kidney disease, stage III (moderate): CODE(S): N18.30 - Chronic kidney disease, stage 3 unspecified (10) 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 She has experienced venous ulcerations in her lower extremities in the past. These ulcerations have typically been treated by her claim investigator, with success. However, her current ulceration of the left pretibial area has been resistant to the measures implemented by her dermat ologist. We are to undertake a protocol of conservative treatment measures. These measures have been discussed with patient in detail. The patient is to continue sleeping on a flat mattress at night. She has been encouraged to elevate her lower extremities is much as possible even during daytime hours. As described to the patient, elevation is to be to heart level, or higher. This is to be implemented as much as possible each day. Prolonged idle sitting has been discouraged. Activity has been encouraged. Compression is to be implemented bilaterally by means of Unna boots, which will be applied twice weekly. Both the compression and the topical zinc oxide are anticipated to be of benefit. The patient has been advised to lose weight, if possible. The patient has been encouraged to optimize her nutritional intake. She is to return in 1 week for reassessment. Total time: 52 minutes
[2022-02-15 09:10] VITALS: BP 127/61; PULSE 96; RESP 18; TEMP 35.5; BMI 36.7
== END 2022-02-18 23:59 | disposition home or self-care (01) ==
LOC: WC 08:45
PROVIDERS: PCP Internal Medicine; Visit Provider Surgery
DX: I87.2 Venous insufficiency (chronic) (peripheral) (principal); L97.222 Non-pressure chronic ulcer of left calf with fat layer exposed; L97.912 Non-pressure chronic ulcer of unspecified part of right lower leg with fat layer exposed; M89.661 Osteopathy after poliomyelitis, right lower leg; I83.022 Varicose veins of left lower extremity with ulcer of calf; N18.30 Chronic kidney disease, stage 3 unspecified; R60.0 Localized edema; I12.9 Hypertensive chronic kidney disease with stage 1 through stage 4 chronic kidney disease, or unspecified chronic kidney disease; G62.9 Polyneuropathy, unspecified; Z79.82 Long term (current) use of aspirin; Z90.89 Acquired absence of other organs; Z86.73 Personal history of transient ischemic attack (TIA), and cerebral infarction without residual deficits; Z86.12 Personal history of poliomyelitis
CPT/HCPCS: 29580; 99213; G0463

== ENCOUNTER 2022-03-19 08:45 | Outpatient (RCR) | payer MEDICARE, BC, SELFPAY ==
[2022-02-19 00:13] VITALS: BP 127/61; PULSE 96; RESP 18; TEMP 35.5; BMI 36.7
[2022-02-19 08:41] VITALS: BP 129/62; PULSE 94; RESP 20; TEMP 36.2; BMI 36.7
--- NOTE | 2022-02-19 09:00 | PCM.WC.HP ---
History of Present Illness Date of Service: 02/19/22 Chief Complaint: Venous stasis ulceration, pretibial area of the left lower extremity History of Wound: This is a 71-year-old female who has had chronic recurring ulcerations in her lower extremities. These of been thought to be due to chronic venous disease. The ulcerations have been associated with swelling. The swelling is said to be worse toward the evening. She has recently been treated with oral antibiotics, including Bactrim and Levaquin. She has been under the care of Dr. Hall, continuous yarn dyeing machine operator, who has been utilizing zinc wraps to the lower extremities. This therapy has been effective and successful in healing the patient's ulcerations in the past, but current management has been ineffective, and the patient has been referred for further management. The patient is ambulatory and relatively active. She sleeps on a flat mattress at night. However, she typically spends long hours each day sitting. She denies a history of thrombophlebitis. She is obese, with a BMI of 36.7. 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, right lower leg Venous stasis dermatitis of both lower extremities Venous stasis ulcer Home Medications Lisinopril/Hydrochlorothiazide [Zestoretic 20/12.5 Tablet] 2 tab PO DAILY bp 06/17/17 [History Last Taken 06/17/17] aspirin 81 mg chewable tablet 81 mg PO DAILY HEART HEALTH 06/17/17 [History Last Taken 06/17/17] cholecalciferol (vitamin D3) 25 mcg (1,000 unit) capsule (Vitamin D3) 1,000 unit PO DAILY SUPPLEMENT 06/17/17 [History Last Taken 06/17/17] cetirizine 10 mg tablet (Zyrtec) 10 mg PO DAILY ALLERGIES 06/18/17 [History Last Taken 06/17/17] pantoprazole 40 mg tablet,delayed release 40 mg PO DAILY #60 tabs 06/18/17 [Rx Last Taken Unknown] Allergy/AdvReac Type Severity Reaction Status Date / Time cephalexin [From Keflex] Allergy Hives Verified 06/17/17 22:11 Penicillins Allergy Hives Verified 06/17/17 22:11 Surgical History Status post appendectomy Social History Smoking Status: Never smoker Vital Signs Vital Signs Vital Signs: 02/19/22 08:41 02/19/22 00:13 Temperature 97.1 F L 96 F L Temperature Source Temporal Pulse Rate 94 96 Respiratory Rate 20 H 18 Blood Pressure 129/62 H 127/61 H Blood Pressure Mean 84 83 Blood Pressure Source Monitor Blood Pressure Location Left Arm Weight Weight: 200 lb 14.792 oz Body Mass Index (BMI) 36.7 Physical Exam Const alert, oriented x3, no apparent distress and well nourished Constitutional Narrative: The patient is obese, with a BMI of 36.7. General Appearance: cooperative, comfortable, well kempt and well developed Orientation / Consciousness: awake, oriented to person, oriented to place and oriented to time HEENT normocephalic and head/scalp atraumatic Head and Scalp: normal to inspection, normocephalic and atraumatic External Ear: external ears normal Eyes PERRL and EOMs intact bilaterally General Eye: normal appearance of both eyes Resp normal respiratory effort, normal air movement, no retractions and no use of accessory muscles Effort and Inspection: able to speak in complete sentences Extremity no calf tenderness General Extremity: Negative for clubbing or cyanosis Skin Wound Narrative: Slight swelling and edema are noted of the patient's lower extremities bilaterally. Scaly venous stasis dermatitis is noted in the right pretibial area. Venous stasis dermatitis is also noted in the left pretibial area, with an ulceration on the left pretibial area distally. The ulceration extends through all layers of the dermis and into the subcutaneous tissue. It is significantly smaller in measurement as compared to 1 week ago. There is a moderate amount of bioburden. There is no sign of infection or cellulitis. Dimensions are documented elsewhere. Neuro oriented x3, CN's II-XII intact bilaterally, moves all extremities and no focal motor deficits Sensorium / Orientation: awake, alert, oriented to person, oriented to place and oriented to time Psych Appearance: grossly normal and appropriate Attitude: calm Activity / Motor Behavior: appropriate eye contact Speech: normal speech Mood & Affect: euthymic mood Thought Process: normal thought process Thought Content: normal thought content Attention / Concentration: attention grossly intact Debridement Note Debridement Note Wound debrided: Left pretibial area Laterality: Left Type of Debridement: Excisional debridement Anesthesia Used: 5% Lidocaine Gel Depth: Down to and including healthy tissue and in the subcutaneous layer Percentage of wound debrided: 100 Instrument Used: 5mm curette Tissue Removed: Bioburden Severity: Fat Layer Exposed Amount of bleeding with debridement: Mild Bleeding Controlled with: Compression and gauze Patient tolerated procedure: Patient tolerated procedure well Post-Debridement Measurements and Additional Note: Post-Debridement Measurements/Treatment CRYSTAL - Nurse 1 - General Ulcer Assessment Start: 02/19/22 08:41 Freq: Status: Active Protocol: LOCO Activity Type Activity Date Activity User E-sign Co-sign Detail Recorded Client Recorded Date Recorded By Document 02/19/22 08:41 DL Desktop 02/19/22 08:49 DL 02/19/22 08:41 WC - Today's Visit Information Type of service Follow-up Visit (Physician/[employer] ) Arrival Mode Ambulatory Transfer Assistance None Patient Identification Verified (Name & Yes ) Patient Requires Transmission-Based No Precautions Height and Weight Body Mass Index (BMI) 36.7 BMI Classification Obese Vital Signs Temperature (97.8 F-99.1 F) 97.1 F L Temperature Source Temporal Pulse Rate (60-100) 94 Pulse Location Monitor Respiratory Rate (12-18) 20 H Respiratory rate source Observation Blood Pressure (90/60-120/80) 129/62 H Blood Pressure Mean 84 Source Monitor History Since Last Visit- (Skip if this is Patient's initial visit) Have you changed medications since your No last visit? Any new allergies or adverse reactions No Had a fall/change in ADL's that may No increase risk of falls Signs or symptoms of abuse and/or No neglect since last visit Have you been in the hospital since your No last visit? Has dressing in place as prescribed Yes Has compression in place as prescribed Yes Has offloadiing in place as prescribed N/A Experienced any changes in pain level or No management Pain Scale: 0-10 Numeric Is Patient Pain Free? Yes CRYSTAL [place] Nurse 1 - General Ulcer Measurement Start: 02/19/22 08:41 Freq: Status: Active Protocol: Activity Type Activity Date Activity User E-sign Co-sign Detail Recorded Client Recorded Date Recorded By Document 02/19/22 08:41 DL Desktop 02/19/22 08:49 DL 02/19/22 08:41 Wound Center Nurse 1 #1 L [place] -Current Size (cm) - Length 1.6 -Current Size (cm) - Width 0.7 -Current Size (cm) - Depth 0.2 -Total Square Cm 1.12 -Photo Taken Yes -Exudate Amt Small -Exudate Type Serosanguineous -Wound Margin Distinct, Outline Attached -Granulation Amt Large (67-100%) -Granulation Quality [place] -Necrosis Amt None Present (0 %) -Structure Exposed N/A -Texture (Lety-wound Skin Appearance) Scarring -Moisture (Lety-wound Skin Appearance) Dry/Scaly -Color (Lety-wound Skin Appearance) Hemosiderin Staining -Temperature (Lety-wound Skin No Abnormality Appearance) (Pt Warm) -Ulcer Cleansing Soap and Water -Foul Odor after Cleansing No -Anesthetic Used 5% Lidocaine Gel Right Calf (cm) 31.7 Right Ankle (cm) 26.3 Left Calf (cm) 39 Left Ankle (cm) 27.5 Assessment/Plan Assessment/Plan (1) Venous stasis ulcer: CODE(S): I83.009 - Varicose veins of unspecified lower extremity with ulcer of unspecified site; L97.909 - Non-pressure chronic ulcer of unspecified part of unspecified lower leg with unspecified severity QUALIFIERS: Venous stasis ulcer site: calf Varicose vein presence: with varicose veins Laterality: left Non-pressure ulcer stage: with fat layer exposed Qualified Code(s): I83.022 - Varicose veins of left lower extremity with ulcer of calf; L97.222 - Non-pressure chronic ulcer of left calf with fat layer exposed (2) Venous stasis dermatitis of both lower extremities: CODE(S): I87.2 - Venous insufficiency (chronic) (peripheral) (3) Chronic venous insufficiency: CODE(S): I87.2 - Venous insufficiency (chronic) (peripheral) (4) Hypertension: CODE(S): I10 - Essential (primary) hypertension (5) History of poliomyelitis: CODE(S): Z86.12 - Personal history of poliomyelitis (6) History of TIA (transient ischemic attack): CODE(S): Z86.73 - Personal history of transient ischemic attack (TIA), and cerebral infarction without residual deficits (7) Autoimmune hemolytic anemia: (8) Cerebrovascular disease: CODE(S): I67.9 - Cerebrovascular disease, unspecified (9) Chronic kidney disease, stage III (moderate): CODE(S): N18.30 - Chronic kidney disease, stage 3 unspecified (10) 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 She has experienced venous ulcerations in her lower extremities in the past. These ulcerations have typically been treated by her continuous yarn dyeing machine operator, with success. However, her current ulceration of the left pretibial area has been resistant to the measures implemented by her continuous yarn dyeing machine operator. We are to undertake a protocol of conservative treatment measures. These measures have been discussed with patient in detail. The patient is to continue sleeping on a flat mattress at night. She has been encouraged to elevate her lower extremities is much as possible even during daytime hours. As described to the patient, elevation is to be to heart level, or higher. This is to be implemented as much as possible each day. Prolonged idle sitting has been discouraged. Activity has been encouraged. Compression is to be continued bilaterally by means of [place] boots, which will be applied twice weekly. Both the compression and the topical zinc oxide are anticipated to be of benefit. The patient has been advised to lose weight, if possible. The patient has been encouraged to optimize her nutritional intake. She is to return in 1 week for reassessment. Total time: 29 minutes
[2022-02-22 11:21] VITALS: BP 95/67; PULSE 86; RESP 16; TEMP 36.4; BMI 36.7
[2022-02-26 08:45] VITALS: BP 135/66; PULSE 106; TEMP 36.7; BMI 36.7
--- NOTE | 2022-02-26 10:35 | PCM.WC.HP ---
History of Present Illness Date of Service: 02/26/22 Chief Complaint: Venous stasis ulceration, pretibial area of the left lower extremity History of Wound: This is a 71-year-old female who has had chronic recurring ulcerations in her lower extremities. These of been thought to be due to chronic venous disease. The ulcerations have been associated with swelling. The swelling is said to be worse toward the evening. She has recently been treated with oral antibiotics, including Bactrim and Levaquin. She has been under the care of Dr. Hall, stone sandblaster, who has been utilizing zinc wraps to the lower extremities. This therapy has been effective and successful in healing the patient's ulcerations in the past, but current management has been ineffective, and the patient has been referred for further management. The patient is ambulatory and relatively active. She sleeps on a flat mattress at night. However, she typically spends long hours each day sitting. She denies a history of thrombophlebitis. She is obese, with a BMI of 36.7. 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, right lower leg Venous stasis dermatitis of both lower extremities Venous stasis ulcer Home Medications Lisinopril/Hydrochlorothiazide [Zestoretic 20/12.5 Tablet] 2 tab PO DAILY bp 06/17/17 [History Last Taken 06/17/17] aspirin 81 mg chewable tablet 81 mg PO DAILY HEART HEALTH 06/17/17 [History Last Taken 06/17/17] cholecalciferol (vitamin D3) 25 mcg (1,000 unit) capsule (Vitamin D3) 1,000 unit PO DAILY SUPPLEMENT 06/17/17 [History Last Taken 06/17/17] cetirizine 10 mg tablet (Zyrtec) 10 mg PO DAILY ALLERGIES 06/18/17 [History Last Taken 06/17/17] pantoprazole 40 mg tablet,delayed release 40 mg PO DAILY #60 tabs 06/18/17 [Rx Last Taken Unknown] Allergy/AdvReac Type Severity Reaction Status Date / Time cephalexin [From Keflex] Allergy Hives Verified 06/17/17 22:11 Penicillins Allergy Hives Verified 06/17/17 22:11 Surgical History Status post appendectomy Social History Smoking Status: Never smoker Vital Signs Vital Signs Vital Signs: 02/26/22 08:45 Temperature 98.1 F Temperature Source Temporal Pulse Rate 106 H Blood Pressure 135/66 H Blood Pressure Mean 89 Blood Pressure Source Monitor Blood Pressure Position Sitting Blood Pressure Location Left Arm Weight Weight: 200 lb 14.792 oz Body Mass Index (BMI) 36.7 Physical Exam Const alert, oriented x3, no apparent distress and well nourished Constitutional Narrative: The patient is obese, with a BMI of 36.7. General Appearance: cooperative, comfortable, well kempt and well developed Orientation / Consciousness: awake, oriented to person, oriented to place and oriented to time HEENT normocephalic and head/scalp atraumatic Head and Scalp: normal to inspection, normocephalic and atraumatic External Ear: external ears normal Eyes PERRL and EOMs intact bilaterally General Eye: normal appearance of both eyes Resp normal respiratory effort, normal air movement, no retractions and no use of accessory muscles Effort and Inspection: able to speak in complete sentences Extremity no calf tenderness General Extremity: Negative for clubbing or cyanosis Skin Wound Narrative: Moderate swelling and edema are noted of the patient's lower extremities bilaterally. There has been improvement in the scaly venous stasis dermatitis bilaterally. Lipodermatosclerosis is noted in the gaiter areas bilaterally. An ulceration is noted on the left pretibial area distally. The ulceration extends through all layers of the dermis and into the subcutaneous tissue. It is significantly smaller in measurement as compared to 1 week ago. There is a moderate amount of bioburden. There is no sign of infection or cellulitis. Dimensions are documented elsewhere. Neuro oriented x3, CN's II-XII intact bilaterally, moves all extremities and no focal motor deficits Sensorium / Orientation: awake, alert, oriented to person, oriented to place and oriented to time Psych Appearance: grossly normal and appropriate Attitude: calm Activity / Motor Behavior: appropriate eye contact Speech: normal speech Mood & Affect: euthymic mood Thought Process: normal thought process Thought Content: normal thought content Attention / Concentration: attention grossly intact Debridement Note Debridement Note Wound debrided: Left pretibial area Laterality: Left Type of Debridement: Excisional debridement Anesthesia Used: 5% Lidocaine Gel Depth: Down to and including healthy tissue and in the subcutaneous layer Percentage of wound debrided: 100 Instrument Used: 5mm curette Tissue Removed: Bioburden Severity: Fat Layer Exposed Amount of bleeding with debridement: Mild Bleeding Controlled with: Compression and gauze Patient tolerated procedure: Patient tolerated procedure well Post-Debridement Measurements and Additional Note: Post-Debridement Measurements/Treatment - Nurse 1 - General Ulcer Assessment Start: 02/19/22 08:41 Freq: Status: Active Protocol: LOCO Activity Type Activity Date Activity User E-sign Co-sign Detail Recorded Client Recorded Date Recorded By Document 02/19/22 08:41 DL Desktop 02/19/22 08:49 DL Document 02/22/22 11:21 ML [id number] 02/22/22 11:28 ML Document 02/26/22 08:45 KR [id number] 02/26/22 08:46 KR 02/19/22 02/22/22 02/26/22 08:41 11:21 08:45 - Today's Visit Information Type of service Follow-up Visit Nurse-only Follow-up Visit (Physician/MANUFACTURE SPECIALIST Visit (Physician/MANUFACTURE SPECIALIST ) ) Arrival Mode Ambulatory Ambulatory Ambulatory Transfer Assistance None None Patient Identification Verified (Name & Yes Yes Yes ) Patient Requires Transmission-Based No No Precautions Safety Precautions NA Height and Weight Body Mass Index (BMI) 36.7 36.7 36.7 BMI Classification Obese Obese Obese Vital Signs Temperature (97.8 F-99.1 F) 97.1 F L 97.6 F L 98.1 F Temperature Source Temporal Temporal Temporal Pulse Rate (60-100) 94 86 106 H Pulse Location Monitor Monitor Monitor Respiratory Rate (12-18) 20 H 16 Respiratory rate source Observation Observation Blood Pressure (90/60-120/80) 129/62 H 95/67 135/66 H Blood Pressure Mean 84 76 89 Source Monitor Monitor Monitor Position Sitting Sitting Blood Pressure Location Right Arm Left Arm History Since Last Visit- (Skip if this is Patient's initial visit) Have you changed medications since your No No last visit? Any new allergies or adverse reactions No No Had a fall/change in ADL's that may No No increase risk of falls Signs or symptoms of abuse and/or No No neglect since last visit Have you been in the hospital since your No No last visit? Has dressing in place as prescribed Yes Yes Has compression in place as prescribed Yes Yes Has offloadiing in place as prescribed N/A N/A Experienced any changes in pain level or No No management Left Footwear Regular Shoe Right Footwear Regular Shoe Pain Scale: 0-10 Numeric Is Patient Pain Free? Yes Yes Yes WC - Nurse 1 - General Ulcer Measurement Start: 02/19/22 08:41 Freq: Status: Active Protocol: Activity Type Activity Date Activity User E-sign Co-sign Detail Recorded Client Recorded Date Recorded By Document 02/19/22 08:41 DL Desktop 02/19/22 08:49 DL Document 02/26/22 08:45 KR [id number] 02/26/22 08:46 KR 02/19/22 02/26/22 08:41 08:45 Wound Center Nurse 1 #1 L Muniz -Current Size (cm) - Length 1.6 0.5 -Current Size (cm) - Width 0.7 0.4 -Current Size (cm) - Depth 0.2 0.1 -Total Square Cm 1.12 0.20 -Photo Taken Yes -Exudate Amt Small Small -Exudate Type Serosanguineous Serosanguineous -Wound Margin Distinct, Distinct, Outline Outline Attached Attached -Granulation Amt Large (67-100%) Medium (34-66%) -Granulation Quality Dardanelle Dardanelle -Necrosis Amt None Present (0 Small (1-33%) %) -Necrotic Tissue Type Adherent Slough -Structure Exposed N/A -Texture (Lety-wound Skin Appearance) Scarring Assessed, Scarring -Moisture (Lety-wound Skin Appearance) Dry/Scaly No Abnormality, Assessed -Color (Lety-wound Skin Appearance) Hemosiderin No Abnormality, Staining Assessed -Temperature (Lety-wound Skin No Abnormality No Abnormality Appearance) (Pt Warm) (Pt Warm) -Tenderness on Palpation (Lety-wound No Skin Appearance) -Ulcer Cleansing Soap and Water Soap and Water -Foul Odor after Cleansing No No -Anesthetic Used 5% Lidocaine 5% Lidocaine Gel Gel Right Calf (cm) 31.7 32.5 Right Ankle (cm) 26.3 26.6 Left Calf (cm) 39 39.5 Left Ankle (cm) 27.5 28.5 WC - Nurse 2 - General Ulcer CM Notes Start: 02/19/22 08:41 Freq: Status: Active Protocol: Activity Type Activity Date Activity User E-sign Co-sign Detail Recorded Client Recorded Date Recorded By Document 02/19/22 11:55 PL [id number] 02/19/22 11:55 PL 02/19/22 11:55 Wound Center Nurse 2 #1 L Mnuiz -Time 08:56 -Correct Patient Yes -Correct Side, Site, Position Yes -Correct Procedure Yes -Procedure Performed Yes -Type of Procedure Debridement -Clinical Debridement Subcutaneous -Tissue Removed Subcutaneous -Post Debridement (cm) - Length 1.6 -Post Debridement (cm) - Width 0.7 -Post Debridement (cm) - Depth 0.1 -Total Square (Post) (cm) 1.12 -Area of Debridement (cm) - Length 1.6 -Area of Debridement (cm) - Width 0.7 -Total Square (Area) (cm) 1.12 -Tunneling No -Undermining/Tunneling No -Circular Undermining No -Wound/Ulcer Outcome Not Healed -Ulcer Cleansing Rinsed/ Irrigated with Saline -Foul Odor after Cleansing No -Bioengineered Tissue No -Bleeding Controlled with Pressure -Treatment Response Procedure Tolerated Well -Debridement - Subq, 1st 20sq cm Yes Pain Scale: 0-10 Numeric Is Patient Pain Free? Yes WC - Nurse 3 - General Ulcer D/C NN Start: 02/19/22 08:41 Freq: Status: Active Protocol: Activity Type Activity Date Activity User E-sign Co-sign Detail Recorded Client Recorded Date Recorded By Document 02/22/22 11:21 ML [id number] 02/22/22 11:28 ML Document 02/26/22 09:01 KR [id number] 02/26/22 09:01 KR 02/22/22 02/26/22 11:21 09:01 Vital Signs Temperature (97.8 F-99.1 F) 97.6 F L Temperature Source Temporal Pulse Rate (60-100) 86 Pulse Location Monitor Respiratory Rate (12-18) 16 Respiratory rate source Observation Blood Pressure (90/60-120/80) 95/67 Blood Pressure Mean 76 Source Monitor Position Sitting Blood Pressure Location Right Arm Pain Scale: 0-10 Numeric Is Patient Pain Free? Yes Yes Wound Care Nurse 3 #1 L Muniz -Ulcer Cleansing Rinsed/ Irrigated with Saline -Primary Dressing Applied Promogran -Primary Dressing Covered/Secured with Dry Gauze, Secured with Tape -Promogran 1 Right -Tubular Bandage Single Layer -Size of Tubigrip Used Size D -Size D ($) 1 Left -Multi-Layered Wrap Application Unna Boot - Bilateral ($) -Unna Boots (Bilat) ($) 2 -Tubular Bandage Single Layer -Size of Tubigrip Used Size D -Size D ($) 1 WC - Visit Discharge Discharge Condition Stable Ambulatory Status Ambulatory Transportation Private Auto Assessment/Plan Assessment/Plan (1) Venous stasis ulcer: CODE(S): I83.009 - Varicose veins of unspecified lower extremity with ulcer of unspecified site; L97.909 - Non-pressure chronic ulcer of unspecified part of unspecified lower leg with unspecified severity QUALIFIERS: Venous stasis ulcer site: calf Varicose vein presence: with varicose veins Laterality: left Non-pressure ulcer stage: with fat layer exposed Qualified Code(s): I83.022 - Varicose veins of left lower extremity with ulcer of calf; L97.222 - Non-pressure chronic ulcer of left calf with fat layer exposed (2) Venous stasis dermatitis of both lower extremities: CODE(S): I87.2 - Venous insufficiency (chronic) (peripheral) (3) Chronic venous insufficiency: CODE(S): I87.2 - Venous insufficiency (chronic) (peripheral) (4) Hypertension: CODE(S): I10 - Essential (primary) hypertension (5) History of poliomyelitis: CODE(S): Z86.12 - Personal history of poliomyelitis (6) History of TIA (transient ischemic attack): CODE(S): Z86.73 - Personal history of transient ischemic attack (TIA), and cerebral infarction without residual deficits (7) Autoimmune hemolytic anemia: (8) Cerebrovascular disease: CODE(S): I67.9 - Cerebrovascular disease, unspecified (9) Chronic kidney disease, stage III (moderate): CODE(S): N18.30 - Chronic kidney disease, stage 3 unspecified (10) 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 She has experienced venous ulcerations in her lower extremities in the past. These ulcerations have typically been treated by her stone sandblaster, with success. However, her current ulceration of the left pretibial area has been resistant to the measures implemented by her stone sandblaster. We are to undertake a protocol of conservative treatment measures. These measures have been discussed with patient in detail. The patient is to continue sleeping on a flat mattress at night. She has been encouraged to elevate her lower extremities is much as possible even during daytime hours. As described to the patient, elevation is to be to heart level, or higher. This is to be implemented as much as possible each day. Prolonged idle sitting has been discouraged. Activity has been encouraged. Compression is to be continued bilaterally by means of Tubigrip's, and the patient has been provided Tubigrip's for daily wear. She has also been provided a prescription for graduated compression stockings of 20 to 30 mmHg compression, and is to obtain these within the next week. They will then be worn on a daily basis. We are to implement the use of Promogran, which will be applied topically on a daily basis by the patient. The patient has been advised to lose weight, if possible. The patient has been encouraged to optimize her nutritional intake. She is to return in 1 week for reassessment. Total time: 28 minutes
[2022-03-05 08:34] VITALS: BP 152/107; PULSE 103; TEMP 36.4; BMI 36.7
--- NOTE | 2022-03-05 08:52 | HP.PCM_ITS ---
History of Present Illness Date of Service: 03/05/22 Chief Complaint: Venous stasis ulceration, pretibial area of the left lower extremity History of Wound: This is a 71-year-old female who has had chronic recurring ulcerations in her lower extremities. These are due to chronic venous disease. The ulcerations have been associated with swelling. The swelling is said to be worse toward the evening. She has recently been treated with oral antibiotics, including Bactrim and Levaquin. She has been under the care of Dr. Hall, barn boss, who has been utilizing zinc wraps to the lower extremities. This therapy has been effective and successful in healing the patient's ulcerations in the past, but current management has been ineffective, and the patient has been referred for further management. The patient is ambulatory and relatively active. She sleeps on a flat mattress at night. However, she typically spends long hours each day sitting. She denies a history of thrombophlebitis. She is obese, with a BMI of 36.7. 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, right lower leg Venous stasis dermatitis of both lower extremities Venous stasis ulcer Home Medications Lisinopril/Hydrochlorothiazide [Zestoretic 20/12.5 Tablet] 2 tab PO DAILY bp 06/17/17 [History Last Taken 06/17/17] aspirin 81 mg chewable tablet 81 mg PO DAILY HEART HEALTH 06/17/17 [History Last Taken 06/17/17] cholecalciferol (vitamin D3) 25 mcg (1,000 unit) capsule (Vitamin D3) 1,000 unit PO DAILY SUPPLEMENT 06/17/17 [History Last Taken 06/17/17] cetirizine 10 mg tablet (Zyrtec) 10 mg PO DAILY ALLERGIES 06/18/17 [History Last Taken 06/17/17] pantoprazole 40 mg tablet,delayed release 40 mg PO DAILY #60 tabs 06/18/17 [Rx Last Taken Unknown] Allergy/AdvReac Type Severity Reaction Status Date / Time cephalexin [From Keflex] Allergy Hives Verified 06/17/17 22:11 Penicillins Allergy Hives Verified 06/17/17 22:11 Surgical History Status post appendectomy Social History Smoking Status: Never smoker Vital Signs Vital Signs Vital Signs: 03/05/22 08:34 Temperature 97.5 F L Temperature Source Temporal Pulse Rate 103 H Blood Pressure 152/107 H Blood Pressure Mean 122 Blood Pressure Source Monitor Blood Pressure Position Sitting Blood Pressure Location Right Arm Weight Weight: 200 lb 14.792 oz Body Mass Index (BMI) 36.7 Physical Exam Const alert, oriented x3, no apparent distress and well nourished Constitutional Narrative: The patient is obese, with a BMI of 36.7. General Appearance: cooperative, comfortable, well kempt and well developed Orientation / Consciousness: awake, oriented to person, oriented to place and oriented to time HEENT normocephalic and head/scalp atraumatic Head and Scalp: normal to inspection, normocephalic and atraumatic External Ear: external ears normal Eyes PERRL and EOMs intact bilaterally General Eye: normal appearance of both eyes Resp normal respiratory effort, normal air movement, no retractions and no use of accessory muscles Effort and Inspection: able to speak in complete sentences Extremity no calf tenderness General Extremity: Negative for clubbing or cyanosis Skin Wound Narrative: Moderate swelling and edema are noted of the patient's lower extremities bilaterally. There has been improvement in the scaly venous stasis dermatitis in the left lower extremity, though it remains in mild form. Lipodermatosclerosis is noted in the gaiter areas bilaterally. An ulceration is noted on the left pretibial area distally. The ulceration extends through all layers of the dermis and into the subcutaneous tissue. There is a moderate amount of bioburden. There is no sign of infection or cellulitis. Dimensions are documented elsewhere. Neuro oriented x3, CN's II-XII intact bilaterally, moves all extremities and no focal motor deficits Sensorium / Orientation: awake, alert, oriented to person, oriented to place and oriented to time Psych Appearance: grossly normal and appropriate Attitude: calm Activity / Motor Behavior: appropriate eye contact Speech: normal speech Mood & Affect: euthymic mood Thought Process: normal thought process Thought Content: normal thought content Attention / Concentration: attention grossly intact Debridement Note Debridement Note Wound debrided: Left pretibial area Laterality: Left Type of Debridement: Excisional debridement Anesthesia Used: 5% Lidocaine Gel Depth: Down to and including healthy tissue and in the subcutaneous layer Percentage of wound debrided: 100 Instrument Used: 5mm curette Tissue Removed: Bioburden Severity: Fat Layer Exposed Amount of bleeding with debridement: Mild Bleeding Controlled with: Compression and gauze Patient tolerated procedure: Patient tolerated procedure well Post-Debridement Measurements and Additional Note: Post-Debridement Measurements/Treatment - Nurse 1 - General Ulcer Assessment Start: 02/19/22 08:41 Freq: Status: Active Protocol: LOCO Activity Type Activity Date Activity User E-sign Co-sign Detail Recorded Client Recorded Date Recorded By Document 02/19/22 08:41 DL Desktop 02/19/22 08:49 DL Document 02/22/22 11:21 ML [id number] 02/22/22 11:28 ML Document 02/26/22 08:45 KR [id number] 02/26/22 08:46 KR Document 03/05/22 08:34 KR [id number] 03/05/22 08:37 KR 02/19/22 02/22/22 02/26/22 08:41 11:21 08:45 - Today's Visit Information Type of service Follow-up Visit Nurse-only Follow-up Visit (Physician/TUTOR COORDINATOR Visit (Physician/TUTOR COORDINATOR ) ) Arrival Mode Ambulatory Ambulatory Ambulatory Transfer Assistance None None Patient Identification Verified (Name & Yes Yes Yes ) Patient Requires Transmission-Based No No Precautions Safety Precautions NA Height and Weight Body Mass Index (BMI) 36.7 36.7 36.7 BMI Classification Obese Obese Obese Vital Signs Temperature (97.8 F-99.1 F) 97.1 F L 97.6 F L 98.1 F Temperature Source Temporal Temporal Temporal Pulse Rate (60-100) 94 86 106 H Pulse Location Monitor Monitor Monitor Respiratory Rate (12-18) 20 H 16 Respiratory rate source Observation Observation Blood Pressure (90/60-120/80) 129/62 H 95/67 135/66 H Blood Pressure Mean 84 76 89 Source Monitor Monitor Monitor Position Sitting Sitting Blood Pressure Location Right Arm Left Arm History Since Last Visit- (Skip if this is Patient's initial visit) Have you changed medications since your No No last visit? Any new allergies or adverse reactions No No Had a fall/change in ADL's that may No No increase risk of falls Signs or symptoms of abuse and/or No No neglect since last visit Have you been in the hospital since your No No last visit? Has dressing in place as prescribed Yes Yes Has compression in place as prescribed Yes Yes Has offloadiing in place as prescribed N/A N/A Experienced any changes in pain level or No No management Left Footwear Regular Shoe Right Footwear Regular Shoe Pain Scale: 0-10 Numeric Is Patient Pain Free? Yes Yes Yes 03/05/22 08:34 - Today's Visit Information Type of service Follow-up Visit (Physician/TUTOR COORDINATOR ) Arrival Mode Ambulatory Transfer Assistance Patient Identification Verified (Name & Yes ) Patient Requires Transmission-Based Precautions Safety Precautions Height and Weight Body Mass Index (BMI) 36.7 BMI Classification Obese Vital Signs Temperature (97.8 F-99.1 F) 97.5 F L Temperature Source Temporal Pulse Rate (60-100) 103 H Pulse Location Monitor Respiratory Rate (12-18) Respiratory rate source Blood Pressure (90/60-120/80) 152/107 H Blood Pressure Mean 122 Source Monitor Position Sitting Blood Pressure Location Right Arm History Since Last Visit- (Skip if this is Patient's initial visit) Have you changed medications since your No last visit? Any new allergies or adverse reactions No Had a fall/change in ADL's that may No increase risk of falls Signs or symptoms of abuse and/or No neglect since last visit Have you been in the hospital since your No last visit? Has dressing in place as prescribed No Has compression in place as prescribed Yes Has offloadiing in place as prescribed N/A Experienced any changes in pain level or No management Left Footwear Regular Shoe Right Footwear Regular Shoe Pain Scale: 0-10 Numeric Is Patient Pain Free? Yes - Nurse 1 - General Ulcer Measurement Start: 02/19/22 08:41 Freq: Status: Active Protocol: Activity Type Activity Date Activity User E-sign Co-sign Detail Recorded Client Recorded Date Recorded By Document 02/19/22 08:41 DL Desktop 02/19/22 08:49 DL Document 02/26/22 08:45 KR [id number] 02/26/22 08:46 KR Document 03/05/22 08:34 KR [id number] 03/05/22 08:37 KR 02/19/22 02/26/22 03/05/22 08:41 08:45 08:34 Wound Center Nurse 1 #1 L Muniz -Current Size (cm) - Length 1.6 0.5 10 -Current Size (cm) - Width 0.7 0.4 17 -Current Size (cm) - Depth 0.2 0.1 0.1 -Total Square Cm 1.12 0.20 170 -Photo Taken Yes -Exudate Amt Small Small Small -Exudate Type Serosanguineous Serosanguineous Serosanguineous -Wound Margin Distinct, Distinct, Distinct, Outline Outline Outline Attached Attached Attached -Granulation Amt Large (67-100%) Medium (34-66%) Medium (34-66%) -Granulation Quality [place] -Necrosis Amt None Present (0 Small (1-33%) None Present (0 %) %) -Necrotic Tissue Type Adherent Slough -Structure Exposed N/A -Texture (Lety-wound Skin Appearance) Scarring Assessed, Assessed, Scarring Scarring -Moisture (Lety-wound Skin Appearance) Dry/Scaly No Abnormality, No Abnormality, Assessed Assessed -Color (Lety-wound Skin Appearance) Hemosiderin No Abnormality, No Abnormality, Staining Assessed Assessed -Temperature (Lety-wound Skin No Abnormality No Abnormality No Abnormality Appearance) (Pt Warm) (Pt Warm) (Pt Warm) -Tenderness on Palpation (Lety-wound No No Skin Appearance) -Ulcer Cleansing Soap and Water Soap and Water Rinsed/ Irrigated with Saline -Foul Odor after Cleansing No No No -Anesthetic Used 5% Lidocaine 5% Lidocaine 5% Lidocaine Gel Gel Gel Right Calf (cm) 31.7 32.5 Right Ankle (cm) 26.3 26.6 Left Calf (cm) 39 39.5 42.5 Left Ankle (cm) 27.5 28.5 29.5 WC - Nurse 2 - General Ulcer CM Notes Start: 02/19/22 08:41 Freq: Status: Active Protocol: Activity Type Activity Date Activity User E-sign Co-sign Detail Recorded Client Recorded Date Recorded By Document 02/19/22 11:55 PL [id number] 02/19/22 11:55 PL Document 02/26/22 11:35 PL [id number] 02/26/22 11:36 PL 02/19/22 02/26/22 11:55 11:35 Wound Center Nurse 2 #1 L Muniz -Time 08:56 08:50 -Correct Patient Yes Yes -Correct Side, Site, Position Yes Yes -Correct Procedure Yes Yes -Procedure Performed Yes Yes -Type of Procedure Debridement Debridement -Clinical Debridement Subcutaneous Subcutaneous -Tissue Removed Subcutaneous Subcutaneous -Post Debridement (cm) - Length 1.6 0.5 -Post Debridement (cm) - Width 0.7 0.4 -Post Debridement (cm) - Depth 0.1 0.1 -Total Square (Post) (cm) 1.12 0.20 -Area of Debridement (cm) - Length 1.6 0.5 -Area of Debridement (cm) - Width 0.7 0.4 -Total Square (Area) (cm) 1.12 0.20 -Tunneling No No -Undermining/Tunneling No No -Circular Undermining No No -Wound/Ulcer Outcome Not Healed Not Healed -Ulcer Cleansing Rinsed/ Rinsed/ Irrigated with Irrigated with Saline Saline -Foul Odor after Cleansing No No -Bioengineered Tissue No No -Bleeding Controlled with Pressure Pressure -Treatment Response Procedure Procedure Tolerated Well Tolerated Well -Debridement - Subq, 1st 20sq cm Yes Yes Pain Scale: 0-10 Numeric Is Patient Pain Free? Yes Yes WC - Nurse 3 - General Ulcer D/C NN Start: 02/19/22 08:41 Freq: Status: Active Protocol: Activity Type Activity Date Activity User E-sign Co-sign Detail Recorded Client Recorded Date Recorded By Document 02/22/22 11:21 ML [id number] 02/22/22 11:28 ML Document 02/26/22 09:01 KR [id number] 02/26/22 09:01 KR 02/22/22 02/26/22 11:21 09:01 Vital Signs Temperature (97.8 F-99.1 F) 97.6 F L Temperature Source Temporal Pulse Rate (60-100) 86 Pulse Location Monitor Respiratory Rate (12-18) 16 Respiratory rate source Observation Blood Pressure (90/60-120/80) 95/67 Blood Pressure Mean 76 Source Monitor Position Sitting Blood Pressure Location Right Arm Pain Scale: 0-10 Numeric Is Patient Pain Free? Yes Yes Wound Care Nurse 3 #1 L Muniz -Ulcer Cleansing Rinsed/ Irrigated with Saline -Primary Dressing Applied Promogran -Primary Dressing Covered/Secured with Dry Gauze, Secured with Tape -Promogran 1 Right -Tubular Bandage Single Layer -Size of Tubigrip Used Size D -Size D ($) 1 Left -Multi-Layered Wrap Application Unna Boot - Bilateral ($) -Unna Boots (Bilat) ($) 2 -Tubular Bandage Single Layer -Size of Tubigrip Used Size D -Size D ($) 1 WC - Visit Discharge Discharge Condition Stable Ambulatory Status Ambulatory Transportation Private Auto Assessment/Plan Assessment/Plan (1) Venous stasis ulcer: CODE(S): I83.009 - Varicose veins of unspecified lower extremity with ulcer of unspecified site; L97.909 - Non-pressure chronic ulcer of unspecified part of unspecified lower leg with unspecified severity QUALIFIERS: Venous stasis ulcer site: calf Varicose vein presence: with varicose veins Laterality: left Non-pressure ulcer stage: with fat layer exposed Qualified Code(s): I83.022 - Varicose veins of left lower extremity with ulcer of calf; L97.222 - Non-pressure chronic ulcer of left calf with fat layer exposed (2) Venous stasis dermatitis of both lower extremities: CODE(S): I87.2 - Venous insufficiency (chronic) (peripheral) (3) Chronic venous insufficiency: CODE(S): I87.2 - Venous insufficiency (chronic) (peripheral) (4) Hypertension: CODE(S): I10 - Essential (primary) hypertension (5) History of poliomyelitis: CODE(S): Z86.12 - Personal history of poliomyelitis (6) History of TIA (transient ischemic attack): CODE(S): Z86.73 - Personal history of transient ischemic attack (TIA), and cerebral infarction without residual deficits (7) Autoimmune hemolytic anemia: (8) Cerebrovascular disease: CODE(S): I67.9 - Cerebrovascular disease, unspecified (9) Chronic kidney disease, stage III (moderate): CODE(S): N18.30 - Chronic kidney disease, stage 3 unspecified (10) 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 She has experienced venous ulcerations in her lower extremities in the past. These ulcerations have typically been treated by her barn boss, with success. However, her current ulceration of the left pretibial area has been resistant to the measures implemented by her barn boss. We are to continue a protocol of conservative treatment measures. These measures have been discussed with patient in detail. The patient is to continue sleeping on a flat mattress at night. She has been encouraged to elevate her lower extremities is much as possible even during daytime hours. As described to the patient, elevation is to be to heart level, or higher. This is to be implemented as much as possible each day. Prolonged idle sitting has been discouraged. Activity has been encouraged. We are to rehab, and the use of an Unna boot to the left lower extremity, which will be applied twice weekly. The compression offered by the Unna boot will be of benefit, as well as zinc oxide and addressing the scaly dermatitis which involves the gaiter area in the left lower extremity. She has also been provided a prescription for graduated compression stockings of 20 to 30 mmHg compression, and has obtain the stockings, which will be ready for use once her ulcerations are completely healed. The patient has been advised to lose weight, if possible. The patient has been encouraged to optimize her nutritional intake. She is to return in 1 week for reassessment. Total time: 29 minutes
[2022-03-08 08:42] VITALS: BP 127/58; PULSE 88; TEMP 35.7; BMI 36.7
[2022-03-12 08:53] VITALS: BP 141/70; PULSE 97; TEMP 36.4; BMI 36.7
--- NOTE | 2022-03-12 15:05 | HP.PCM_ITS ---
History of Present Illness Date of Service: 03/12/22 Chief Complaint: Venous stasis ulceration, pretibial area of the left lower extremity History of Wound: This is a 71-year-old female who has had chronic recurring ulcerations in her lower extremities. These are due to chronic venous disease. The ulcerations have been associated with swelling. The swelling is said to be worse toward the evening. She has recently been treated with oral antibiotics, including Bactrim and Levaquin. She has been under the care of Dr. Hall, energy sales consultant, who has been utilizing zinc wraps to the lower extremities. This therapy has been effective and successful in healing the patient's ulcerations in the past, but current management has been ineffective, and the patient has been referred for further management. The patient is ambulatory and relatively active. She sleeps on a flat mattress at night. However, she typically spends long hours each day sitting. She denies a history of thrombophlebitis. She is obese, with a BMI of 36.7. 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, right lower leg Venous stasis dermatitis of both lower extremities Venous stasis ulcer Home Medications Lisinopril/Hydrochlorothiazide [Zestoretic 20/12.5 Tablet] 2 tab PO DAILY bp 06/17/17 [History Last Taken 06/17/17] aspirin 81 mg chewable tablet 81 mg PO DAILY HEART HEALTH 06/17/17 [History Last Taken 06/17/17] cholecalciferol (vitamin D3) 25 mcg (1,000 unit) capsule (Vitamin D3) 1,000 unit PO DAILY SUPPLEMENT 06/17/17 [History Last Taken 06/17/17] cetirizine 10 mg tablet (Zyrtec) 10 mg PO DAILY ALLERGIES 06/18/17 [History Last Taken 06/17/17] pantoprazole 40 mg tablet,delayed release 40 mg PO DAILY #60 tabs 06/18/17 [Rx Last Taken Unknown] Allergy/AdvReac Type Severity Reaction Status Date / Time cephalexin [From Keflex] Allergy Hives Verified 06/17/17 22:11 Penicillins Allergy Hives Verified 06/17/17 22:11 Surgical History Status post appendectomy Social History Smoking Status: Never smoker Vital Signs Vital Signs Vital Signs: 03/12/22 08:53 Temperature 97.6 F L Temperature Source Temporal Pulse Rate 97 Blood Pressure 141/70 H Blood Pressure Mean 93 Blood Pressure Source Monitor Blood Pressure Position Sitting Blood Pressure Location Right Arm Weight Weight: 200 lb 14.792 oz Body Mass Index (BMI) 36.7 Physical Exam Const alert, oriented x3, no apparent distress and well nourished Constitutional Narrative: The patient is obese, with a BMI of 36.7. General Appearance: cooperative, comfortable, well kempt and well developed Orientation / Consciousness: awake, oriented to person, oriented to place and oriented to time HEENT normocephalic and head/scalp atraumatic Head and Scalp: normal to inspection, normocephalic and atraumatic External Ear: external ears normal Eyes PERRL and EOMs intact bilaterally General Eye: normal appearance of both eyes Resp normal respiratory effort, normal air movement, no retractions and no use of accessory muscles Effort and Inspection: able to speak in complete sentences Extremity no calf tenderness General Extremity: Negative for clubbing or cyanosis Skin Wound Narrative: Moderate swelling and edema are noted of the patient's lower extremities bilaterally. There has been improvement in the scaly venous stasis dermatitis in the left lower extremity, though it remains in mild form. Lipodermatosclerosis is noted in the gaiter areas bilaterally. An ulceration is noted on the left pretibial area distally, which has decreased in size. The ulceration extends through all layers of the dermis and into the subcutaneous tissue. There is a moderate amount of bioburden. There is no sign of infection or cellulitis. Dimensions are documented elsewhere. Neuro oriented x3, CN's II-XII intact bilaterally, moves all extremities and no focal motor deficits Sensorium / Orientation: awake, alert, oriented to person, oriented to place and oriented to time Psych Appearance: grossly normal and appropriate Attitude: calm Activity / Motor Behavior: appropriate eye contact Speech: normal speech Mood & Affect: euthymic mood Thought Process: normal thought process Thought Content: normal thought content Attention / Concentration: attention grossly intact Debridement Note Debridement Note Wound debrided: Left pretibial area Laterality: Left Type of Debridement: Excisional debridement Anesthesia Used: 5% Lidocaine Gel Depth: Down to and including healthy tissue and in the subcutaneous layer Percentage of wound debrided: 100 Instrument Used: 5mm curette Tissue Removed: Bioburden Severity: Fat Layer Exposed Amount of bleeding with debridement: Mild Bleeding Controlled with: Compression and gauze Patient tolerated procedure: Patient tolerated procedure well Post-Debridement Measurements and Additional Note: Post-Debridement Measurements/Treatment WC - Nurse 1 - General Ulcer Assessment Start: 02/19/22 08:41 Freq: Status: Active Protocol: LOCO Activity Type Activity Date Activity User E-sign Co-sign Detail Recorded Client Recorded Date Recorded By Document 02/19/22 08:41 DL Desktop 02/19/22 08:49 DL Document 02/22/22 11:21 ML [id number] 02/22/22 11:28 ML Document 02/26/22 08:45 KR [id number] 02/26/22 08:46 KR Document 03/05/22 08:34 KR [id number] 03/05/22 08:37 KR Document 03/08/22 08:42 AK [id number] 03/08/22 08:43 AK Document 03/12/22 08:53 KR [id number] 03/12/22 08:55 KR 02/19/22 02/22/22 02/26/22 08:41 11:21 08:45 - Today's Visit Information Type of service Follow-up Visit Nurse-only Follow-up Visit (Physician/STATIONARY ENGINEER SUPERVISOR Visit (Physician/STATIONARY ENGINEER SUPERVISOR ) ) Arrival Mode Ambulatory Ambulatory Ambulatory Transfer Assistance None None Patient Identification Verified (Name & Yes Yes Yes ) Patient Requires Transmission-Based No No Precautions Safety Precautions NA Height and Weight Body Mass Index (BMI) 36.7 36.7 36.7 BMI Classification Obese Obese Obese Vital Signs Temperature (97.8 F-99.1 F) 97.1 F L 97.6 F L 98.1 F Temperature Source Temporal Temporal Temporal Pulse Rate (60-100) 94 86 106 H Pulse Location Monitor Monitor Monitor Respiratory Rate (12-18) 20 H 16 Respiratory rate source Observation Observation Blood Pressure (90/60-120/80) 129/62 H 95/67 135/66 H Blood Pressure Mean 84 76 89 Source Monitor Monitor Monitor Position Sitting Sitting Blood Pressure Location Right Arm Left Arm History Since Last Visit- (Skip if this is Patient's initial visit) Have you changed medications since your No No last visit? Any new allergies or adverse reactions No No Had a fall/change in ADL's that may No No increase risk of falls Signs or symptoms of abuse and/or No No neglect since last visit Have you been in the hospital since your No No last visit? Has dressing in place as prescribed Yes Yes Has compression in place as prescribed Yes Yes Has offloadiing in place as prescribed N/A N/A Experienced any changes in pain level or No No management Left Footwear Regular Shoe Right Footwear Regular Shoe Pain Scale: 0-10 Numeric Is Patient Pain Free? Yes Yes Yes 03/05/22 03/08/22 03/12/22 08:34 08:42 08:53 WC - Today's Visit Information Type of service Follow-up Visit Nurse-only Follow-up Visit (Physician/STATIONARY ENGINEER SUPERVISOR Visit (Physician/STATIONARY ENGINEER SUPERVISOR ) ) Arrival Mode Ambulatory Ambulatory Ambulatory Transfer Assistance Patient Identification Verified (Name & Yes Yes Yes ) Patient Requires Transmission-Based No Precautions Safety Precautions NA Height and Weight Body Mass Index (BMI) 36.7 36.7 36.7 BMI Classification Obese Obese Obese Vital Signs Temperature (97.8 F-99.1 F) 97.5 F L 96.2 F L 97.6 F L Temperature Source Temporal Temporal Temporal Pulse Rate (60-100) 103 H 88 97 Pulse Location Monitor Monitor Monitor Respiratory Rate (12-18) Respiratory rate source Blood Pressure (90/60-120/80) 152/107 H 127/58 H 141/70 H Blood Pressure Mean 122 81 93 Source Monitor Monitor Monitor Position Sitting Sitting Blood Pressure Location Right Arm Right Arm History Since Last Visit- (Skip if this is Patient's initial visit) Have you changed medications since your No No No last visit? Any new allergies or adverse reactions No No No Had a fall/change in ADL's that may No No No increase risk of falls Signs or symptoms of abuse and/or No No No neglect since last visit Have you been in the hospital since your No No No last visit? Has dressing in place as prescribed No Yes Yes Has compression in place as prescribed Yes Yes Yes Has offloadiing in place as prescribed N/A N/A N/A Experienced any changes in pain level or No No No management Left Footwear Regular Shoe Regular Shoe Regular Shoe Right Footwear Regular Shoe Regular Shoe Regular Shoe Pain Scale: 0-10 Numeric Is Patient Pain Free? Yes Yes Yes WC - Nurse 1 - General Ulcer Measurement Start: 02/19/22 08:41 Freq: Status: Active Protocol: Activity Type Activity Date Activity User E-sign Co-sign Detail Recorded Client Recorded Date Recorded By Document 02/19/22 08:41 DL Desktop 02/19/22 08:49 DL Document 02/26/22 08:45 KR [id number] 02/26/22 08:46 KR Document 03/05/22 08:34 KR [id number] 03/05/22 08:37 KR Document 03/08/22 08:42 AK [id number] 03/08/22 08:43 AK Document 03/12/22 08:53 KR [id number] 03/12/22 08:55 KR 02/19/22 02/26/22 03/05/22 08:41 08:45 08:34 Wound Center Nurse 1 #1 L Muniz -Combined with other wound -Current Size (cm) - Length 1.6 0.5 10 -Current Size (cm) - Width 0.7 0.4 17 -Current Size (cm) - Depth 0.2 0.1 0.1 -Total Square Cm 1.12 0.20 170 -Photo Taken Yes -Exudate Amt Small Small Small -Exudate Type Serosanguineous Serosanguineous Serosanguineous -Wound Margin Distinct, Distinct, Distinct, Outline Outline Outline Attached Attached Attached -Granulation Amt Large (67-100%) Medium (34-66%) Medium (34-66%) -Granulation Quality [place] -Necrosis Amt None Present (0 Small (1-33%) None Present (0 %) %) -Necrotic Tissue Type Adherent Slough -Structure Exposed N/A -Texture (Lety-wound Skin Appearance) Scarring Assessed, Assessed, Scarring Scarring -Moisture (Lety-wound Skin Appearance) Dry/Scaly No Abnormality, No Abnormality, Assessed Assessed -Color (Lety-wound Skin Appearance) Hemosiderin No Abnormality, No Abnormality, Staining Assessed Assessed -Temperature (Lety-wound Skin No Abnormality No Abnormality No Abnormality Appearance) (Pt Warm) (Pt Warm) (Pt Warm) -Tenderness on Palpation (Lety-wound No No Skin Appearance) -Ulcer Cleansing Soap and Water Soap and Water Rinsed/ Irrigated with Saline -Foul Odor after Cleansing No No No -Anesthetic Used 5% Lidocaine 5% Lidocaine 5% Lidocaine Gel Gel Gel Lower Limb Edema Present Right Calf (cm) 31.7 32.5 Right Ankle (cm) 26.3 26.6 Left Calf (cm) 39 39.5 42.5 Left Ankle (cm) 27.5 28.5 29.5 03/08/22 03/12/22 08:42 08:53 Wound Center Nurse 1 #1 L Muniz -Combined with other wound No -Current Size (cm) - Length 2 -Current Size (cm) - Width 3.5 -Current Size (cm) - Depth 0.1 -Total Square Cm 7.0 -Photo Taken -Exudate Amt Small -Exudate Type Serosanguineous -Wound Margin Distinct, Outline Attached -Granulation Amt Small (1-33%) -Granulation Quality [place] -Necrosis Amt Small (1-33%) -Necrotic Tissue Type Adherent Slough -Structure Exposed -Texture (Lety-wound Skin Appearance) Assessed, Scarring -Moisture (Lety-wound Skin Appearance) No Abnormality, Assessed -Color (Lety-wound Skin Appearance) No Abnormality, Assessed -Temperature (Lety-wound Skin No Abnormality Appearance) (Pt Warm) -Tenderness on Palpation (Lety-wound No Skin Appearance) -Ulcer Cleansing Soap and Water -Foul Odor after Cleansing No -Anesthetic Used 5% Lidocaine Gel Lower Limb Edema Present No Right Calf (cm) 34.5 32.5 Right Ankle (cm) 26.5 26.5 Left Calf (cm) 42 40 Left Ankle (cm) 28 29.5 WC - Nurse 2 - General Ulcer CM Notes Start: 02/19/22 08:41 Freq: Status: Active Protocol: Activity Type Activity Date Activity User E-sign Co-sign Detail Recorded Client Recorded Date Recorded By Document 02/19/22 11:55 PL [id number] 02/19/22 11:55 PL Document 02/26/22 11:35 PL [id number] 02/26/22 11:36 PL Document 03/05/22 11:44 PL [id number] 03/05/22 11:45 PL Document 03/12/22 11:59 PL [id number] 03/12/22 12:00 PL 02/19/22 02/26/22 03/05/22 11:55 11:35 11:44 Wound Center Nurse 2 #1 L Muniz -Time 08:56 08:50 08:43 -Correct Patient Yes Yes Yes -Correct Side, Site, Position Yes Yes Yes -Correct Procedure Yes Yes Yes -Procedure Performed Yes Yes Yes -Type of Procedure Debridement Debridement Debridement -Clinical Debridement Subcutaneous Subcutaneous Subcutaneous -Tissue Removed Subcutaneous Subcutaneous Subcutaneous -Post Debridement (cm) - Length 1.6 0.5 1.0 -Post Debridement (cm) - Width 0.7 0.4 0.5 -Post Debridement (cm) - Depth 0.1 0.1 0.1 -Total Square (Post) (cm) 1.12 0.20 0.50 -Area of Debridement (cm) - Length 1.6 0.5 1.0 -Area of Debridement (cm) - Width 0.7 0.4 0.5 -Total Square (Area) (cm) 1.12 0.20 0.50 -Tunneling No No No -Undermining/Tunneling No No No -Circular Undermining No No No -Wound/Ulcer Outcome Not Healed Not Healed Not Healed -Ulcer Cleansing Rinsed/ Rinsed/ Rinsed/ Irrigated with Irrigated with Irrigated with Saline Saline Saline -Foul Odor after Cleansing No No No -Bioengineered Tissue No No No -Bleeding Controlled with Pressure Pressure Pressure -Treatment Response Procedure Procedure Procedure Tolerated Well Tolerated Well Tolerated Well -Debridement - Subq, 1st 20sq cm Yes Yes Yes Pain Scale: 0-10 Numeric Is Patient Pain Free? Yes Yes Yes 03/12/22 11:59 Wound Center Nurse 2 #1 L Muniz -Time 09:05 -Correct Patient Yes -Correct Side, Site, Position Yes -Correct Procedure Yes -Procedure Performed Yes -Type of Procedure Debridement -Clinical Debridement Subcutaneous -Tissue Removed Subcutaneous -Post Debridement (cm) - Length 2.0 -Post Debridement (cm) - Width 3.5 -Post Debridement (cm) - Depth 0.1 -Total Square (Post) (cm) 7.00 -Area of Debridement (cm) - Length 2.0 -Area of Debridement (cm) - Width 3.5 -Total Square (Area) (cm) 7.00 -Tunneling No -Undermining/Tunneling No -Circular Undermining No -Wound/Ulcer Outcome Not Healed -Ulcer Cleansing Rinsed/ Irrigated with Saline -Foul Odor after Cleansing No -Bioengineered Tissue No -Bleeding Controlled with Pressure -Treatment Response Procedure Tolerated Well -Debridement - Subq, 1st 20sq cm Yes Pain Scale: 0-10 Numeric Is Patient Pain Free? Yes WC - Nurse 3 - General Ulcer D/C NN Start: 02/19/22 08:41 Freq: Status: Active Protocol: Activity Type Activity Date Activity User E-sign Co-sign Detail Recorded Client Recorded Date Recorded By Document 02/22/22 11:21 ML [id number] 02/22/22 11:28 ML Document 02/26/22 09:01 KR [id number] 02/26/22 09:01 KR Document 03/05/22 09:12 AK [id number] 03/05/22 09:14 AK Document 03/12/22 09:23 AK [id number] 03/12/22 09:24 AK 02/22/22 02/26/22 03/05/22 11:21 09:01 09:12 Vital Signs Temperature (97.8 F-99.1 F) 97.6 F L Temperature Source Temporal Pulse Rate (60-100) 86 Pulse Location Monitor Respiratory Rate (12-18) 16 Respiratory rate source Observation Blood Pressure (90/60-120/80) 95/67 Blood Pressure Mean 76 Source Monitor Position Sitting Blood Pressure Location Right Arm Pain Scale: 0-10 Numeric Is Patient Pain Free? Yes Yes Yes Wound Care Nurse 3 #1 L Mun[place] -Ulcer Cleansing Rinsed/ Rinsed/ Irrigated with Irrigated with Saline Saline -Foul Odor after Cleansing No -Negative Pressure Wound Therapy N/A -Primary Dressing Applied Promogran Promogran -Primary Dressing Covered/Secured with Dry Gauze, Dry Gauze Secured with Tape -Promogran 1 1 bilateral -Lotion applied to leg before No compression wrap -Multi-Layered Wrap Application Unna Boot - Bilateral ($) -Unna Boots (Bilat) ($) 2 Right -Tubular Bandage Single Layer -Size of Tubigrip Used Size D -Size D ($) 1 Left -Multi-Layered Wrap Application Unna Boot - Bilateral ($) -Unna Boots (Bilat) ($) 2 -Tubular Bandage Single Layer -Size of Tubigrip Used Size D -Size D ($) 1 WC - Visit Discharge Discharge Condition Stable Stable Ambulatory Status Ambulatory Ambulatory Transportation Private Auto Private Auto Medication Reconcilliation completed & Yes provided to patient/care provider Clinical Summary of Care Provided No 03/12/22 09:23 Vital Signs Temperature (97.8 F-99.1 F) Temperature Source Pulse Rate (60-100) Pulse Location Respiratory Rate (12-18) Respiratory rate source Blood Pressure (90/60-120/80) Blood Pressure Mean Source Position Blood Pressure Location Pain Scale: 0-10 Numeric Is Patient Pain Free? Yes Wound Care Nurse 3 #1 L [place] -Ulcer Cleansing -Foul Odor after Cleansing -Negative Pressure Wound Therapy -Primary Dressing Applied -Primary Dressing Covered/Secured with -Promogran bilateral -Lotion applied to leg before No compression wrap -Multi-Layered Wrap Application Unna Boot - Bilateral ($) -Unna Boots (Bilat) ($) 2 Right -Tubular Bandage -Size of Tubigrip Used -Size D ($) Left -Multi-Layered Wrap Application -Unna Boots (Bilat) ($) -Tubular Bandage -Size of Tubigrip Used -Size D ($) WC - Visit Discharge Discharge Condition Stable Ambulatory Status Ambulatory Transportation Private Auto Medication Reconcilliation completed & Yes provided to patient/care provider Clinical Summary of Care Provided Yes Assessment/Plan Assessment/Plan (1) Venous stasis ulcer: CODE(S): I83.009 - Varicose veins of unspecified lower extremity with ulcer of unspecified site; L97.909 - Non-pressure chronic ulcer of unspecified part of unspecified lower leg with unspecified severity QUALIFIERS: Venous stasis ulcer site: calf Varicose vein presence: with varicose veins Laterality: left Non-pressure ulcer stage: with fat layer exposed Qualified Code(s): I83.022 - Varicose veins of left lower extremity with ulcer of calf; L97.222 - Non-pressure chronic ulcer of left calf with fat layer exposed (2) Venous stasis dermatitis of both lower extremities: CODE(S): I87.2 - Venous insufficiency (chronic) (peripheral) (3) Chronic venous insufficiency: CODE(S): I87.2 - Venous insufficiency (chronic) (peripheral) (4) Hypertension: CODE(S): I10 - Essential (primary) hypertension (5) History of poliomyelitis: CODE(S): Z86.12 - Personal history of poliomyelitis (6) History of TIA (transient ischemic attack): CODE(S): Z86.73 - Personal history of transient ischemic attack (TIA), and cerebral infarction without residual deficits (7) Autoimmune hemolytic anemia: (8) Cerebrovascular disease: CODE(S): I67.9 - Cerebrovascular disease, unspecified (9) Chronic kidney disease, stage III (moderate): CODE(S): N18.30 - Chronic kidney disease, stage 3 unspecified (10) 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 She has experienced venous ulcerations in her lower extremities in the past. These ulcerations have typically been treated by her energy sales consultant, with success. However, her current ulceration of the left pretibial area has been resistant to the measures implemented by her energy sales consultant. We are to continue a protocol of conservative treatment measures. These measures have been discussed with patient in detail. The patient is to continue sleeping on a flat mattress at night. She has been encouraged to elevate her lower extremities is much as possible even during daytime hours. As described to the patient, elevation is to be to heart level, or higher. This is to be implemented as much as possible each day. Prolonged idle sitting has been discouraged. Activity has been encouraged. We are to continue the use of an Unna boot to the left lower extremity, which will be applied twice weekly. The compression offered by the Unna boot will be of benefit, as well as zinc oxide in addressing the scaly dermatitis which involves the gaiter area in the left lower extremity. She has also been provided a prescription for graduated compression stockings of 20 to 30 mmHg compression, and has obtained the stockings, which will be ready for use once her ulcerations are completely healed. The patient has been advised to lose weight, if possible. The patient has been encouraged to optimize her nutritional intake. She is to return in 1 week for reassessment. Total time: 28 minutes
[2022-03-19 09:01] VITALS: BP 136/55; PULSE 90; TEMP 35.9; BMI 36.7
--- NOTE | 2022-03-19 09:54 | PCM.WC.HP ---
History of Present Illness Date of Service: 03/19/22 Chief Complaint: Venous stasis ulceration, pretibial area of the left lower extremity History of Wound: This is a 71-year-old female who has had chronic recurring ulcerations in her lower extremities. These are due to chronic venous disease. The ulcerations have been associated with swelling. The swelling is said to be worse toward the evening. She has recently been treated with oral antibiotics, including Bactrim and Levaquin. She has been under the care of Dr. Hall, solids control technician, who has been utilizing zinc wraps to the lower extremities. This therapy has been effective and successful in healing the patient's ulcerations in the past, but current management has been ineffective, and the patient has been referred for further management. The patient is ambulatory and relatively active. She sleeps on a flat mattress at night. However, she typically spends long hours each day sitting. She denies a history of thrombophlebitis. She is obese, with a BMI of 36.7. 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, right lower leg Venous stasis dermatitis of both lower extremities Venous stasis ulcer Home Medications Lisinopril/Hydrochlorothiazide [Zestoretic 20/12.5 Tablet] 2 tab PO DAILY bp 06/17/17 [History Last Taken 06/17/17] aspirin 81 mg chewable tablet 81 mg PO DAILY HEART HEALTH 06/17/17 [History Last Taken 06/17/17] cholecalciferol (vitamin D3) 25 mcg (1,000 unit) capsule (Vitamin D3) 1,000 unit PO DAILY SUPPLEMENT 06/17/17 [History Last Taken 06/17/17] cetirizine 10 mg tablet (Zyrtec) 10 mg PO DAILY ALLERGIES 06/18/17 [History Last Taken 06/17/17] pantoprazole 40 mg tablet,delayed release 40 mg PO DAILY #60 tabs 06/18/17 [Rx Last Taken Unknown] Allergy/AdvReac Type Severity Reaction Status Date / Time cephalexin [From Keflex] Allergy Hives Verified 06/17/17 22:11 Penicillins Allergy Hives Verified 06/17/17 22:11 Surgical History Status post appendectomy Social History Smoking Status: Never smoker Vital Signs Vital Signs Vital Signs: 03/19/22 09:01 Temperature 96.6 F L Temperature Source Temporal Pulse Rate 90 Blood Pressure 136/55 H Blood Pressure Mean 82 Blood Pressure Source Monitor Weight Weight: 200 lb 14.792 oz Body Mass Index (BMI) 36.7 Physical Exam Const alert, oriented x3, no apparent distress and well nourished Constitutional Narrative: The patient is obese, with a BMI of 36.7. General Appearance: cooperative, comfortable, well kempt and well developed Orientation / Consciousness: awake, oriented to person, oriented to place and oriented to time HEENT normocephalic and head/scalp atraumatic Head and Scalp: normal to inspection, normocephalic and atraumatic External Ear: external ears normal Eyes PERRL and EOMs intact bilaterally General Eye: normal appearance of both eyes Resp normal respiratory effort, normal air movement, no retractions and no use of accessory muscles Effort and Inspection: able to speak in complete sentences Extremity no calf tenderness General Extremity: Negative for clubbing or cyanosis Skin Wound Narrative: Moderate swelling and edema are noted of the patient's left lower extremity. There has been improvement in the scaly venous stasis dermatitis in the left lower extremity, though it remains in mild form. Lipodermatosclerosis is noted in the gaiter areas bilaterally. The ulcerations in the left lower extremity are largely healed, though several very superficial excoriations persist. These are located in the pretibial area. We are to implement the use of collagen hydrogel topically on these excoriations, and continue the use of an Unna boot to the left lower extremity, which will be changed twice weekly. The patient is to continue compression of the right lower extremity by means of graduated compression stockings, which she has in her possession. The patient is to follow-up for reevaluation in 2 weeks. There is no sign of infection or cellulitis. Neuro oriented x3, CN's II-XII intact bilaterally, moves all extremities and no focal motor deficits Sensorium / Orientation: awake, alert, oriented to person, oriented to place and oriented to time Psych Appearance: grossly normal and appropriate Attitude: calm Activity / Motor Behavior: appropriate eye contact Speech: normal speech Mood & Affect: euthymic mood Thought Process: normal thought process Thought Content: normal thought content Attention / Concentration: attention grossly intact Debridement Note Debridement Note No debridement was completed: No debridement was completed today Post-Debridement Measurements and Additional Note: Post-Debridement Measurements/Treatment WC - Nurse 1 - General Ulcer Assessment Start: 02/19/22 08:41 Freq: Status: Active Protocol: LOCO Activity Type Activity Date Activity User E-sign Co-sign Detail Recorded Client Recorded Date Recorded By Document 02/19/22 08:41 DL Desktop 02/19/22 08:49 DL Document 02/22/22 11:21 ML [id number] 02/22/22 11:28 ML Document 02/26/22 08:45 KR [id number] 02/26/22 08:46 KR Document 03/05/22 08:34 KR [id number] 03/05/22 08:37 KR Document 03/08/22 08:42 AK [id number] 03/08/22 08:43 AK Document 03/12/22 08:53 KR [id number] 03/12/22 08:55 KR Document 03/19/22 09:01 AK [id number] 03/19/22 09:08 AK 02/19/22 02/22/22 02/26/22 08:41 11:21 08:45 - Today's Visit Information Type of service Follow-up Visit Nurse-only Follow-up Visit (Physician/MANAGER FINANCIAL [employer]ANNING Visit (Physician/MANAGER FINANCIAL PLANNING ) ) Arrival Mode Ambulatory Ambulatory Ambulatory Transfer Assistance None None Patient Identification Verified (Name & Yes Yes Yes ) Patient Requires Transmission-Based No No Precautions Safety Precautions NA Height and Weight Body Mass Index (BMI) 36.7 36.7 36.7 BMI Classification Obese Obese Obese Vital Signs Temperature (97.8 F-99.1 F) 97.1 F L 97.6 F L 98.1 F Temperature Source Temporal Temporal Temporal Pulse Rate (60-100) 94 86 106 H Pulse Location Monitor Monitor Monitor Respiratory Rate (12-18) 20 H 16 Respiratory rate source Observation Observation Blood Pressure (90/60-120/80) 129/62 H 95/67 135/66 H Blood Pressure Mean 84 76 89 Source Monitor Monitor Monitor Position Sitting Sitting Blood Pressure Location Right Arm Left Arm History Since Last Visit- (Skip if this is Patient's initial visit) Have you changed medications since your No No last visit? Any new allergies or adverse reactions No No Had a fall/change in ADL's that may No No increase risk of falls Signs or symptoms of abuse and/or No No neglect since last visit Have you been in the hospital since your No No last visit? Has dressing in place as prescribed Yes Yes Has compression in place as prescribed Yes Yes Has offloadiing in place as prescribed N/A N/A Experienced any changes in pain level or No No management Left Footwear Regular Shoe Right Footwear Regular Shoe Pain Scale: 0-10 Numeric Is Patient Pain Free? Yes Yes Yes 03/05/22 03/08/22 03/12/22 08:34 08:42 08:53 WC - Today's Visit Information Type of service Follow-up Visit Nurse-only Follow-up Visit (Physician/MANAGER FINANCIAL PLANNING Visit (Physician/MANAGER FINANCIAL PLANNING ) ) Arrival Mode Ambulatory Ambulatory Ambulatory Transfer Assistance Patient Identification Verified (Name & Yes Yes Yes ) Patient Requires Transmission-Based No Precautions Safety Precautions NA Height and Weight Body Mass Index (BMI) 36.7 36.7 36.7 BMI Classification Obese Obese Obese Vital Signs Temperature (97.8 F-99.1 F) 97.5 F L 96.2 F L 97.6 F L Temperature Source Temporal Temporal Temporal Pulse Rate (60-100) 103 H 88 97 Pulse Location Monitor Monitor Monitor Respiratory Rate (12-18) Respiratory rate source Blood Pressure (90/60-120/80) 152/107 H 127/58 H 141/70 H Blood Pressure Mean 122 81 93 Source Monitor Monitor Monitor Position Sitting Sitting Blood Pressure Location Right Arm Right Arm History Since Last Visit- (Skip if this is Patient's initial visit) Have you changed medications since your No No No last visit? Any new allergies or adverse reactions No No No Had a fall/change in ADL's that may No No No increase risk of falls Signs or symptoms of abuse and/or No No No neglect since last visit Have you been in the hospital since your No No No last visit? Has dressing in place as prescribed No Yes Yes Has compression in place as prescribed Yes Yes Yes Has offloadiing in place as prescribed N/A N/A N/A Experienced any changes in pain level or No No No management Left Footwear Regular Shoe Regular Shoe Regular Shoe Right Footwear Regular Shoe Regular Shoe Regular Shoe Pain Scale: 0-10 Numeric Is Patient Pain Free? Yes Yes Yes 03/19/22 09:01 WC - Today's Visit Information Type of service Follow-up Visit (Physician/MANAGER FINANCIAL PLANNING ) Arrival Mode Ambulatory Transfer Assistance Patient Identification Verified (Name & Yes ) Patient Requires Transmission-Based No Precautions Safety Precautions NA Height and Weight Body Mass Index (BMI) 36.7 BMI Classification Obese Vital Signs Temperature (97.8 F-99.1 F) 96.6 F L Temperature Source Temporal Pulse Rate (60-100) 90 Pulse Location Monitor Respiratory Rate (12-18) Respiratory rate source Blood Pressure (90/60-120/80) 136/55 H Blood Pressure Mean 82 Source Monitor Position Blood Pressure Location History Since Last Visit- (Skip if this is Patient's initial visit) Have you changed medications since your No last visit? Any new allergies or adverse reactions No Had a fall/change in ADL's that may No increase risk of falls Signs or symptoms of abuse and/or No neglect since last visit Have you been in the hospital since your No last visit? Has dressing in place as prescribed Yes Has compression in place as prescribed Yes Has offloadiing in place as prescribed N/A Experienced any changes in pain level or No management Left Footwear Regular Shoe Right Footwear Regular Shoe Pain Scale: 0-10 Numeric Is Patient Pain Free? Yes - Nurse 1 - General Ulcer Measurement Start: 02/19/22 08:41 Freq: Status: Active Protocol: Activity Type Activity Date Activity User E-sign Co-sign Detail Recorded Client Recorded Date Recorded By Document 02/19/22 08:41 DL Desktop 02/19/22 08:49 DL Document 02/26/22 08:45 KR [id number] 02/26/22 08:46 KR Document 03/05/22 08:34 KR [id number] 03/05/22 08:37 KR Document 03/08/22 08:42 AK [id number] 03/08/22 08:43 AK Document 03/12/22 08:53 KR [id number] 03/12/22 08:55 KR Document 03/19/22 09:01 AK [id number] 03/19/22 09:08 AK 02/19/22 02/26/22 03/05/22 08:41 08:45 08:34 Wound Center Nurse 1 #1 L Mun[place] -Combined with other wound -Current Size (cm) - Length 1.6 0.5 10 -Current Size (cm) - Width 0.7 0.4 17 -Current Size (cm) - Depth 0.2 0.1 0.1 -Total Square Cm 1.12 0.20 170 -Photo Taken Yes -Tunneling -Undermining/Tunneling -Circular Undermining -Change in Wound Grade/Stage -Exudate Amt Small Small Small -Exudate Type Serosanguineous Serosanguineous Serosanguineous -Wound Margin Distinct, Distinct, Distinct, Outline Outline Outline Attached Attached Attached -Granulation Amt Large (67-100%) Medium (34-66%) Medium (34-66%) -Granulation Quality [place] -Slough/Fibrin -Necrosis Amt None Present (0 Small (1-33%) None Present (0 %) %) -Necrotic Tissue Type Adherent Slough -Structure Exposed N/A -Texture (Lety-wound Skin Appearance) Scarring Assessed, Assessed, Scarring Scarring -Moisture (Lety-wound Skin Appearance) Dry/Scaly No Abnormality, No Abnormality, Assessed Assessed -Color (Lety-wound Skin Appearance) Hemosiderin No Abnormality, No Abnormality, Staining Assessed Assessed -Temperature (Lety-wound Skin No Abnormality No Abnormality No Abnormality Appearance) (Pt Warm) (Pt Warm) (Pt Warm) -Tenderness on Palpation (Lety-wound No No Skin Appearance) -Ulcer Cleansing Soap and Water Soap and Water Rinsed/ Irrigated with Saline -Foul Odor after Cleansing No No No -Anesthetic Used 5% Lidocaine 5% Lidocaine 5% Lidocaine Gel Gel Gel -Wound Comment(s) Lower Limb Edema Present Right Calf (cm) 31.7 32.5 Right Ankle (cm) 26.3 26.6 Left Calf (cm) 39 39.5 42.5 Left Ankle (cm) 27.5 28.5 29.5 03/08/22 03/12/22 03/19/22 08:42 08:53 09:01 Wound Center Nurse 1 #1 L Muniz -Combined with other wound No No -Current Size (cm) - Length 2 0.1 -Current Size (cm) - Width 3.5 0.1 -Current Size (cm) - Depth 0.1 0.1 -Total Square Cm 7.0 0.01 -Photo Taken No -Tunneling No -Undermining/Tunneling No -Circular Undermining No -Change in Wound Grade/Stage No -Exudate Amt Small None Present -Exudate Type Serosanguineous -Wound Margin Distinct, Outline Attached -Granulation Amt Small (1-33%) None Present (0 %) -Granulation Quality [place] N/A -Slough/Fibrin No -Necrosis Amt Small (1-33%) None Present (0 %) -Necrotic Tissue Type Adherent Slough -Structure Exposed N/A -Texture (Lety-wound Skin Appearance) Assessed, No Abnormality, Scarring Assessed -Moisture (Lety-wound Skin Appearance) No Abnormality, No Abnormality, Assessed Assessed -Color (Lety-wound Skin Appearance) No Abnormality, No Abnormality, Assessed Assessed -Temperature (Lety-wound Skin No Abnormality No Abnormality Appearance) (Pt Warm) (Pt Warm) -Tenderness on Palpation (Lety-wound No No Skin Appearance) -Ulcer Cleansing Soap and Water Soap and Water -Foul Odor after Cleansing No No -Anesthetic Used 5% Lidocaine Gel -Wound Comment(s) blotchy areas of petechiae Lower Limb Edema Present No Right Calf (cm) 34.5 32.5 31.8 Right Ankle (cm) 26.5 26.5 27.5 Left Calf (cm) 42 40 40.2 Left Ankle (cm) 28 29.5 29.9 WC - Nurse 2 - General Ulcer CM Notes Start: 02/19/22 08:41 Freq: Status: Active Protocol: Activity Type Activity Date Activity User E-sign Co-sign Detail Recorded Client Recorded Date Recorded By Document 02/19/22 11:55 PL [id number] 02/19/22 11:55 PL Document 02/26/22 11:35 PL [id number] 02/26/22 11:36 PL Document 03/05/22 11:44 PL [id number] 03/05/22 11:45 PL Document 03/12/22 11:59 PL [id number] 03/12/22 12:00 PL 02/19/22 02/26/22 03/05/22 11:55 11:35 11:44 Wound Center Nurse 2 #1 L Muniz -Time 08:56 08:50 08:43 -Correct Patient Yes Yes Yes -Correct Side, Site, Position Yes Yes Yes -Correct Procedure Yes Yes Yes -Procedure Performed Yes Yes Yes -Type of Procedure Debridement Debridement Debridement -Clinical Debridement Subcutaneous Subcutaneous Subcutaneous -Tissue Removed Subcutaneous Subcutaneous Subcutaneous -Post Debridement (cm) - Length 1.6 0.5 1.0 -Post Debridement (cm) - Width 0.7 0.4 0.5 -Post Debridement (cm) - Depth 0.1 0.1 0.1 -Total Square (Post) (cm) 1.12 0.20 0.50 -Area of Debridement (cm) - Length 1.6 0.5 1.0 -Area of Debridement (cm) - Width 0.7 0.4 0.5 -Total Square (Area) (cm) 1.12 0.20 0.50 -Tunneling No No No -Undermining/Tunneling No No No -Circular Undermining No No No -Wound/Ulcer Outcome Not Healed Not Healed Not Healed -Ulcer Cleansing Rinsed/ Rinsed/ Rinsed/ Irrigated with Irrigated with Irrigated with Saline Saline Saline -Foul Odor after Cleansing No No No -Bioengineered Tissue No No No -Bleeding Controlled with Pressure Pressure Pressure -Treatment Response Procedure Procedure Procedure Tolerated Well Tolerated Well Tolerated Well -Debridement - Subq, 1st 20sq cm Yes Yes Yes Pain Scale: 0-10 Numeric Is Patient Pain Free? Yes Yes Yes 03/12/22 11:59 Wound Center Nurse 2 #1 L Muniz -Time 09:05 -Correct Patient Yes -Correct Side, Site, Position Yes -Correct Procedure Yes -Procedure Performed Yes -Type of Procedure Debridement -Clinical Debridement Subcutaneous -Tissue Removed Subcutaneous -Post Debridement (cm) - Length 2.0 -Post Debridement (cm) - Width 3.5 -Post Debridement (cm) - Depth 0.1 -Total Square (Post) (cm) 7.00 -Area of Debridement (cm) - Length 2.0 -Area of Debridement (cm) - Width 3.5 -Total Square (Area) (cm) 7.00 -Tunneling No -Undermining/Tunneling No -Circular Undermining No -Wound/Ulcer Outcome Not Healed -Ulcer Cleansing Rinsed/ Irrigated with Saline -Foul Odor after Cleansing No -Bioengineered Tissue No -Bleeding Controlled with Pressure -Treatment Response Procedure Tolerated Well -Debridement - Subq, 1st 20sq cm Yes Pain Scale: 0-10 Numeric Is Patient Pain Free? Yes WC - Nurse 3 - General Ulcer D/C NN Start: 02/19/22 08:41 Freq: Status: Active Protocol: Activity Type Activity Date Activity User E-sign Co-sign Detail Recorded Client Recorded Date Recorded By Document 02/22/22 11:21 ML [id number] 02/22/22 11:28 ML Document 02/26/22 09:01 KR [id number] 02/26/22 09:01 KR Document 03/05/22 09:12 AK [id number] 03/05/22 09:14 AK Document 03/12/22 09:23 AK [id number] 03/12/22 09:24 AK 02/22/22 02/26/22 03/05/22 11:21 09:01 09:12 Vital Signs Temperature (97.8 F-99.1 F) 97.6 F L Temperature Source Temporal Pulse Rate (60-100) 86 Pulse Location Monitor Respiratory Rate (12-18) 16 Respiratory rate source Observation Blood Pressure (90/60-120/80) 95/67 Blood Pressure Mean 76 Source Monitor Position Sitting Blood Pressure Location Right Arm Pain Scale: 0-10 Numeric Is Patient Pain Free? Yes Yes Yes Wound Care Nurse 3 #1 L Muniz -Ulcer Cleansing Rinsed/ Rinsed/ Irrigated with Irrigated with Saline Saline -Foul Odor after Cleansing No -Negative Pressure Wound Therapy N/A -Primary Dressing Applied Promogran Promogran -Primary Dressing Covered/Secured with Dry Gauze, Dry Gauze Secured with Tape -Promogran 1 1 bilateral -Lotion applied to leg before No compression wrap -Multi-Layered Wrap Application Unna Boot - Bilateral ($) -Unna Boots (Bilat) ($) 2 Right -Tubular Bandage Single Layer -Size of Tubigrip Used Size D -Size D ($) 1 Left -Multi-Layered Wrap Application Unna Boot - Bilateral ($) -Unna Boots (Bilat) ($) 2 -Tubular Bandage Single Layer -Size of Tubigrip Used Size D -Size D ($) 1 WC - Visit Discharge Discharge Condition Stable Stable Ambulatory Status Ambulatory Ambulatory Transportation Private Auto Private Auto Medication Reconcilliation completed & Yes provided to patient/care provider Clinical Summary of Care Provided No 03/12/22 09:23 Vital Signs Temperature (97.8 F-99.1 F) Temperature Source Pulse Rate (60-100) Pulse Location Respiratory Rate (12-18) Respiratory rate source Blood Pressure (90/60-120/80) Blood Pressure Mean Source Position Blood Pressure Location Pain Scale: 0-10 Numeric Is Patient Pain Free? Yes Wound Care Nurse 3 #1 L [place] -Ulcer Cleansing -Foul Odor after Cleansing -Negative Pressure Wound Therapy -Primary Dressing Applied -Primary Dressing Covered/Secured with -Promogran bilateral -Lotion applied to leg before No compression wrap -Multi-Layered Wrap Application Unna Boot - Bilateral ($) -Unna Boots (Bilat) ($) 2 Right -Tubular Bandage -Size of Tubigrip Used -Size D ($) Left -Multi-Layered Wrap Application -Unna Boots (Bilat) ($) -Tubular Bandage -Size of Tubigrip Used -Size D ($) WC - Visit Discharge Discharge Condition Stable Ambulatory Status Ambulatory Transportation Private Auto Medication Reconcilliation completed & Yes provided to patient/care provider Clinical Summary of Care Provided Yes Assessment/Plan Assessment/Plan (1) Venous stasis ulcer: CODE(S): I83.009 - Varicose veins of unspecified lower extremity with ulcer of unspecified site; L97.909 - Non-pressure chronic ulcer of unspecified part of unspecified lower leg with unspecified severity QUALIFIERS: Venous stasis ulcer site: calf Varicose vein presence: with varicose veins Laterality: left Non-pressure ulcer stage: with fat layer exposed Qualified Code(s): I83.022 - Varicose veins of left lower extremity with ulcer of calf; L97.222 - Non-pressure chronic ulcer of left calf with fat layer exposed (2) Venous stasis dermatitis of both lower extremities: CODE(S): I87.2 - Venous insufficiency (chronic) (peripheral) (3) Chronic venous insufficiency: CODE(S): I87.2 - Venous insufficiency (chronic) (peripheral) (4) Hypertension: CODE(S): I10 - Essential (primary) hypertension (5) History of poliomyelitis: CODE(S): Z86.12 - Personal history of poliomyelitis (6) History of TIA (transient ischemic attack): CODE(S): Z86.73 - Personal history of transient ischemic attack (TIA), and cerebral infarction without residual deficits (7) Autoimmune hemolytic anemia: (8) Cerebrovascular disease: CODE(S): I67.9 - Cerebrovascular disease, unspecified (9) Chronic kidney disease, stage III (moderate): CODE(S): N18.30 - Chronic kidney disease, stage 3 unspecified (10) 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 She has experienced venous ulcerations in her lower extremities in the past. These ulcerations have typically been treated by her solids control technician, with success. However, her current ulceration of the left pretibial area has been resistant to the measures implemented by her solids control technician. We are to continue a protocol of conservative treatment measures. These measures have been discussed with patient in detail. The patient is to continue sleeping on a flat mattress at night. She has been encouraged to elevate her lower extremities is much as possible even during daytime hours. As described to the patient, elevation is to be to heart level, or higher. This is to be implemented as much as possible each day. Prolonged idle sitting has been discouraged. Activity has been encouraged. We are to continue the use of an Unna boot to the left lower extremity, which will be applied twice weekly. Collagen hydrogel will be applied topically to the superficial excoriations. The patient is to continue compression to the right lower extremity by means of graduated compression stockings of 20 to 30 mmHg compression, which she has in her possession. The patient has been advised to lose weight, if possible. The patient has been encouraged to optimize her nutritional intake. She is to return in 2 weeks for reassessment. Total time: 29 minutes
== END 2022-03-20 23:59 | disposition home or self-care (01) ==
LOC: WC 08:45
PROVIDERS: PCP Internal Medicine; Visit Provider Surgery
DX: I83.92 Asymptomatic varicose veins of left lower extremity (principal); D59.10 Autoimmune hemolytic anemia, unspecified; L97.912 Non-pressure chronic ulcer of unspecified part of right lower leg with fat layer exposed; L97.222 Non-pressure chronic ulcer of left calf with fat layer exposed; N18.30 Chronic kidney disease, stage 3 unspecified; I87.2 Venous insufficiency (chronic) (peripheral); A80.9 Acute poliomyelitis, unspecified; Z79.82 Long term (current) use of aspirin; Z79.2 Long term (current) use of antibiotics; I12.9 Hypertensive chronic kidney disease with stage 1 through stage 4 chronic kidney disease, or unspecified chronic kidney disease; Z90.89 Acquired absence of other organs; Z86.12 Personal history of poliomyelitis; Z86.73 Personal history of transient ischemic attack (TIA), and cerebral infarction without residual deficits; B91 Sequelae of poliomyelitis
CPT/HCPCS: 11042; 29580; 99213; G0463

== ENCOUNTER → 2022-04-08 15:00 | Outpatient (RCR) | payer MEDICARE, BC, SELFPAY ==
[2022-03-21 00:13] VITALS: BP 136/55; PULSE 90; RESP 16; TEMP 35.9; BMI 36.7
[2022-03-22 09:21] VITALS: BP 135/61; PULSE 90; RESP 18; TEMP 36.2; BMI 36.7
[2022-03-26 14:12] VITALS: BP 139/85; PULSE 105; RESP 20; TEMP 35.8; BMI 36.7
[2022-03-29 08:40] VITALS: BP 127/49; PULSE 90; RESP 20; TEMP 36.2; BMI 36.7
[2022-04-02 08:26] VITALS: BP 141/75; PULSE 82; RESP 16; TEMP 36.4; BMI 36.7
--- NOTE | 2022-04-02 14:00 | PCM.WC.HP ---
History of Present Illness Date of Service: 04/02/22 Chief Complaint: Venous stasis ulceration, pretibial area of the left lower extremity History of Wound: This is a 71-year-old female who has had chronic recurring ulcerations in her lower extremities. These are due to chronic venous disease. The ulcerations have been associated with swelling. The swelling is said to be worse toward the evening. She has recently been treated with oral antibiotics, including Bactrim and Levaquin. She has been under the care of Dr. Hall, software firmware engineer, who has been utilizing zinc wraps to the lower extremities. This therapy has been effective and successful in healing the patient's ulcerations in the past, but current management has been ineffective, and the patient has been referred for further management. The patient is ambulatory and relatively active. She sleeps on a flat mattress at night. However, she typically spends long hours each day sitting. She denies a history of thrombophlebitis. She is obese, with a BMI of 36.7. [facility] Medical History (Updated 04/02/22 @ 14:[address] 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, right lower leg Venous stasis dermatitis of both lower extremities Venous stasis ulcer Home Medications Lisinopril/Hydrochlorothiazide [Zestoretic 20/12.5 Tablet] 2 tab PO DAILY bp 06/17/17 [History Last Taken 06/17/17] aspirin 81 mg chewable tablet 81 mg PO DAILY HEART HEALTH 06/17/17 [History Last Taken 06/17/17] cholecalciferol (vitamin D3) 25 mcg (1,000 unit) capsule (Vitamin D3) 1,000 unit PO DAILY SUPPLEMENT 06/17/17 [History Last Taken 06/17/17] cetirizine 10 mg tablet (Zyrtec) 10 mg PO DAILY ALLERGIES 06/18/17 [History Last Taken 06/17/17] pantoprazole 40 mg tablet,delayed release 40 mg PO DAILY #60 tabs 06/18/17 [Rx Last Taken Unknown] Allergy/AdvReac Type Severity Reaction Status Date / Time cephalexin [From Keflex] Allergy Hives Verified 06/17/17 22:11 Penicillins Allergy Hives Verified 06/17/17 22:11 Surgical History Status post appendectomy Social History Smoking Status: Never smoker Vital Signs Vital Signs Vital Signs: 04/02/22 08:26 Temperature 97.6 F L Temperature Source Temporal Pulse Rate 82 Respiratory Rate 16 Blood Pressure 141/75 H Blood Pressure Mean 97 Blood Pressure Source Monitor Blood Pressure Position Sitting Blood Pressure Location Left Arm Weight Weight: 200 lb 14.792 oz Body Mass Index (BMI) 36.7 Physical Exam Const alert, oriented x3, no apparent distress and well nourished Constitutional Narrative: The patient is obese, with a BMI of 36.7. General Appearance: cooperative, comfortable, well kempt and well developed Orientation / Consciousness: awake, oriented to person, oriented to place and oriented to time HEENT normocephalic and head/scalp atraumatic Head and Scalp: normal to inspection, normocephalic and atraumatic External Ear: external ears normal Eyes PERRL and EOMs intact bilaterally General Eye: normal appearance of both eyes Resp normal respiratory effort, normal air movement, no retractions and no use of accessory muscles Effort and Inspection: able to speak in complete sentences Extremity no calf tenderness General Extremity: Negative for clubbing or cyanosis Skin Wound Narrative: Slight swelling and edema are noted of the patient's left lower extremity. There has been significant improvement in the scaly venous stasis dermatitis in the left lower extremity. Lipodermatosclerosis and hyperpigmentation are noted in the gaiter areas bilaterally. The ulcerations in the left lower extremity are now completely healed and epithelialized. There is no sign of infection or cellulitis. Neuro oriented x3, CN's II-XII intact bilaterally, moves all extremities and no focal motor deficits Sensorium / Orientation: awake, alert, oriented to person, oriented to place and oriented to time Psych Appearance: grossly normal and appropriate Attitude: calm Activity / Motor Behavior: appropriate eye contact Speech: normal speech Mood & Affect: euthymic mood Thought Process: normal thought process Thought Content: normal thought content Attention / Concentration: attention grossly intact Debridement Note Debridement Note No debridement was completed: No debridement was completed today (There are no open wounds or ulcerations.) Post-Debridement Measurements and Additional Note: Post-Debridement Measurements/Treatment WC - Nurse 1 - General Ulcer Assessment Start: 03/22/22 09:21 Freq: Status: Active Protocol: LOCO Activity Type Activity Date Activity User E-sign Co-sign Detail Recorded Client Recorded Date Recorded By Document 03/22/22 09:21 RB [id number] 03/22/22 09:24 RB Document 03/26/22 14:12 DL [id number] 03/26/22 14:15 DL Document 03/29/22 08:40 DL [id number] 03/29/22 08:53 DL Document 04/02/22 08:26 ML [id number] 04/02/22 08:34 ML 03/22/22 03/26/22 03/29/22 09:21 14:12 08:40 WC - Today's Visit Information Type of service Nurse-only Nurse-only Nurse-only Visit Visit Visit Arrival Mode Ambulatory Ambulatory Ambulatory Transfer Assistance None None None Patient Identification Verified (Name & Yes Yes Yes ) Patient Requires Transmission-Based No No No Precautions Safety Precautions Height and Weight Body Mass Index (BMI) 36.7 36.7 36.7 BMI Classification Obese Obese Obese Vital Signs Temperature (97.8 F-99.1 F) 97.1 F L 96.5 F L 97.2 F L Temperature Source Temporal Temporal Temporal Pulse Rate (60-100) 90 105 H 90 Pulse Location Monitor Monitor Monitor Respiratory Rate (12-18) 18 20 H 20 H Respiratory rate source Observation Observation Observation Blood Pressure (90/60-120/80) 135/61 H 139/85 H 127/49 H Blood Pressure Mean 85 103 75 Source Monitor Monitor Monitor Position Semi-Fowlers Blood Pressure Location Left Arm History Since Last Visit- (Skip if this is Patient's initial visit) Have you changed medications since your No No No last visit? Any new allergies or adverse reactions No No No Had a fall/change in ADL's that may No No No increase risk of falls Signs or symptoms of abuse and/or No No No neglect since last visit Have you been in the hospital since your No No last visit? Has dressing in place as prescribed Yes Yes Yes Has compression in place as prescribed Yes Yes Yes Has offloadiing in place as prescribed No N/A N/A Experienced any changes in pain level or No No No management Left Footwear Right Footwear Pain Scale: 0-10 Numeric Is Patient Pain Free? Yes Yes Yes 04/02/22 08:26 WC - Today's Visit Information Type of service Follow-up Visit (Physician/ACCOUNT ASSOCIATE ) Arrival Mode Ambulatory Transfer Assistance None Patient Identification Verified (Name & Yes ) Patient Requires Transmission-Based No Precautions Safety Precautions NA Height and Weight Body Mass Index (BMI) 36.7 BMI Classification Obese Vital Signs Temperature (97.8 F-99.1 F) 97.6 F L Temperature Source Temporal Pulse Rate (60-100) 82 Pulse Location Monitor Respiratory Rate (12-18) 16 Respiratory rate source Observation Blood Pressure (90/60-120/80) 141/75 H Blood Pressure Mean 97 Source Monitor Position Sitting Blood Pressure Location Left Arm History Since Last Visit- (Skip if this is Patient's initial visit) Have you changed medications since your No last visit? Any new allergies or adverse reactions No Had a fall/change in ADL's that may No increase risk of falls Signs or symptoms of abuse and/or No neglect since last visit Have you been in the hospital since your No last visit? Has dressing in place as prescribed Yes Has compression in place as prescribed Yes Has offloadiing in place as prescribed N/A Experienced any changes in pain level or No management Left Footwear Regular Shoe Right Footwear Regular Shoe Pain Scale: 0-10 Numeric Is Patient Pain Free? Yes WC - Nurse 1 - General Ulcer Measurement Start: 03/22/22 09:21 Freq: Status: Active Protocol: Activity Type Activity Date Activity User E-sign Co-sign Detail Recorded Client Recorded Date Recorded By Document 03/22/22 09:21 RB [id number] 03/22/22 09:24 RB Document 03/26/22 14:12 DL [id number] 03/26/22 14:15 DL Document 03/29/22 08:40 DL [id number] 03/29/22 08:53 DL Document 04/02/22 08:26 ML [id number] 04/02/22 08:34 ML 03/22/22 03/26/22 03/29/22 09:21 14:12 08:40 Wound Center Nurse 1 #1 L Mun[place] -Combined with other wound No -Current Size (cm) - Length -Current Size (cm) - Width -Current Size (cm) - Depth -Total Square Cm -Photo Taken No No -Circular Undermining -Change in Wound Grade/Stage -Exudate Amt None Present Small -Exudate Type Serosanguineous -Wound Margin Flat & Intact Indistinct, Non -Visible -Granulation Amt Large (67-100%) -Granulation Quality [place] -Slough/Fibrin -Necrosis Amt None Present (0 %) -Structure Exposed N/A N/A -Texture (Lety-wound Skin Appearance) No Abnormality Rash -Moisture (Lety-wound Skin Appearance) No Abnormality No Abnormality -Color (Lety-wound Skin Appearance) No Abnormality No Abnormality -Temperature (Lety-wound Skin No Abnormality No Abnormality Appearance) (Pt Warm) (Pt Warm) -Tenderness on Palpation (Lety-wound Yes No Skin Appearance) -Ulcer Cleansing Not Cleansed Soap and Water -Foul Odor after Cleansing No No Lower Limb Edema Present Yes Left Calf (cm) 42 41.9 39 Left Ankle (cm) 27.5 27.3 26.5 04/02/22 08:26 Wound Center Nurse 1 #1 L Muniz -Combined with other wound -Current Size (cm) - Length 0.1 -Current Size (cm) - Width 0.1 -Current Size (cm) - Depth 0.1 -Total Square Cm 0.01 -Photo Taken -Circular Undermining No -Change in Wound Grade/Stage No -Exudate Amt None Present -Exudate Type -Wound Margin -Granulation Amt None Present (0 %) -Granulation Quality -Slough/Fibrin No -Necrosis Amt None Present (0 %) -Structure Exposed -Texture (Lety-wound Skin Appearance) No Abnormality, Assessed -Moisture (Lety-wound Skin Appearance) No Abnormality -Color (Lety-wound Skin Appearance) Assessed -Temperature (Lety-wound Skin No Abnormality Appearance) (Pt Warm) -Tenderness on Palpation (Lety-wound No Skin Appearance) -Ulcer Cleansing Soap and Water -Foul Odor after Cleansing No Lower Limb Edema Present Left Calf (cm) 38 Left Ankle (cm) 27.5 WC - Nurse 2 - General Ulcer CM Notes Start: 03/22/22 09:21 Freq: Status: Active Protocol: Activity Type Activity Date Activity User E-sign Co-sign Detail Recorded Client Recorded Date Recorded By Document 04/02/22 11:29 PL [id number] 04/02/22 11:29 PL 04/02/22 11:29 Wound Center Nurse 2 #1 L Muniz -Procedure Performed No -Wound/Ulcer Outcome Healed- Epithelialized Pain Scale: 0-10 Numeric Is Patient Pain Free? Yes WC - Nurse 3 - General Ulcer D/C NN Start: 03/22/22 09:21 Freq: Status: Active Protocol: Activity Type Activity Date Activity User E-sign Co-sign Detail Recorded Client Recorded Date Recorded By Document 03/22/22 09:24 RB [id number] 03/22/22 09:25 RB Document 03/26/22 14:12 DL [id number] 03/26/22 14:15 DL Document 03/29/22 08:40 DL [id number] 03/29/22 08:53 DL Document 04/02/22 09:17 ML [id number] 04/02/22 09:18 ML 03/22/22 03/26/22 03/29/22 09:24 14:12 08:40 Wound Care Nurse 3 #1 L Muniz -Ulcer Cleansing Wound Cleanser Soap and Water Soap and Water -Foul Odor after Cleansing No No -Negative Pressure Wound Therapy -Other Dressing hydrogel hydrogel hydrogel Left -Lotion applied to leg before compression wrap -Multi-Layered Wrap Application Unna Boot - Unna Boot - Unna Boot - Left ($) Left ($) Left ($) -Tubular Bandage -Size of Tubigrip Used -Size D ($) Treatment Response Procedure Procedure Procedure Tolerated Well Tolerated Well Tolerated Well Vital Signs Temperature (97.8 F-99.1 F) 96.5 F L 97.2 F L Temperature Source Temporal Temporal Pulse Rate (60-100) 105 H 90 Pulse Location Monitor Monitor Respiratory Rate (12-18) 20 H 20 H Respiratory rate source Observation Observation Blood Pressure (90/60-120/80) 139/85 H 127/49 H Blood Pressure Mean 103 75 Source Monitor Monitor Pain Scale: 0-10 Numeric Is Patient Pain Free? Yes Yes Yes WC - Visit Discharge Discharge Condition Stable Stable Stable Ambulatory Status Ambulatory Ambulatory Ambulatory Transportation Private Auto Private Auto Private Auto Medication Reconcilliation completed & No provided to patient/care provider Clinical Summary of Care Provided Yes 04/02/22 09:17 Wound Care Nurse 3 #1 L Muniz -Ulcer Cleansing Rinsed/ Irrigated with Saline -Foul Odor after Cleansing No -Negative Pressure Wound Therapy N/A -Other Dressing Left -Lotion applied to leg before Yes compression wrap -Multi-Layered Wrap Application -Tubular Bandage Single Layer -Size of Tubigrip Used Size D -Size D ($) 1 Treatment Response Vital Signs Temperature (97.8 F-99.1 F) Temperature Source Pulse Rate (60-100) Pulse Location Respiratory Rate (12-18) Respiratory rate source Blood Pressure (90/60-120/80) Blood Pressure Mean Source Pain Scale: 0-10 Numeric Is Patient Pain Free? Yes WC - Visit Discharge Discharge Condition Stable Ambulatory Status Ambulatory Transportation Private Auto Medication Reconcilliation completed & Yes provided to patient/care provider Clinical Summary of Care Provided Yes Assessment/Plan Assessment/Plan (1) Venous stasis ulcer: CODE(S): I83.009 - Varicose veins of unspecified lower extremity with ulcer of unspecified site; L97.909 - Non-pressure chronic ulcer of unspecified part of unspecified lower leg with unspecified severity QUALIFIERS: Venous stasis ulcer site: calf Varicose vein presence: with varicose veins Laterality: left Non-pressure ulcer stage: with fat layer exposed Qualified Code(s): I83.022 - Varicose veins of left lower extremity with ulcer of calf; L97.222 - Non-pressure chronic ulcer of left calf with fat layer exposed (2) Chronic venous hypertension w/ulcer and inflammation involv left side: CODE(S): I87.332 - Chronic venous hypertension (idiopathic) with ulcer and inflammation of left lower extremity; L97.929 - Non-pressure chronic ulcer of unspecified part of left lower leg with unspecified severity (3) Venous stasis dermatitis of both lower extremities: CODE(S): I87.2 - Venous insufficiency (chronic) (peripheral) (4) Chronic venous insufficiency: CODE(S): I87.2 - Venous insufficiency (chronic) (peripheral) (5) Hypertension: CODE(S): I10 - Essential (primary) hypertension (6) History of poliomyelitis: CODE(S): Z86.12 - Personal history of poliomyelitis (7) History of TIA (transient ischemic attack): CODE(S): Z86.73 - Personal history of transient ischemic attack (TIA), and cerebral infarction without residual deficits (8) Autoimmune hemolytic anemia: (9) Cerebrovascular disease: CODE(S): I67.9 - Cerebrovascular disease, unspecified (10) Chronic kidney disease, stage III (moderate): CODE(S): N18.30 - Chronic kidney disease, stage 3 unspecified (11) 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 She has experienced venous ulcerations in her lower extremities in the past. These ulcerations have typically been treated by her software firmware engineer, with success. However, her current ulceration of the left pretibial area had been resistant to the measures implemented by her software firmware engineer. As of today's visit, the ulcerations in the left lower extremity are completely healed. However, the patient is noted to have severe venous stasis changes in the left lower extremity, with lipodermatosclerosis and hyperpigmentation in the gaiter area. It has been recommended that the patient continue a protocol of conservative treatment measures. These measures have been discussed with patient in detail. The patient is to continue sleeping on a flat mattress at night. She has been encouraged to elevate her lower extremities is much as possible even during daytime hours. As described to the patient, elevation is to be to heart level, or higher. This is to be implemented as much as possible each day. Prolonged idle sitting has been discouraged. Activity has been encouraged. We are to continue compression to the lower extremities bilaterally with graduated compression stockings of 20 to 30 mmHg compression, which the patient possesses. The patient has been advised to lose weight, if possible. The [facility]. She has been advised to contact our facility's staff should other ulcerations occur. Given the chronic nature of the patient's venous disease, and her proclivity for developing venous stasis ulcerations, we have discussed the potential benefits of superficial venous ablation of superficial venous incompetence in her lower extremities. Therefore, we are to obtain a venous duplex examination in the near future, the patient will follow-up henceforth in the private office setting for discussion of the results, and further discussion regarding potential procedural intervention and management of her venous disease. Total time: 26 minutes
--- NOTE | 2022-04-08 15:05 | VDLE_ITS ---
Reason For Study: chronic venous insufficiency RIGHT LEFT GSV is normal. GSV is normal. CFV is compressible, spontaneous, phasic, CFV is compressible, spontaneous, phasic, competent and demonstrates normal competent, and demonstrates normal augmentation. augmentation. FV is compressible, spontaneous, phasic, FV is compressible, spontaneous, phasic, competent and demonstrates normal competent and demonstrates normal augmentation. augmentation. POP V is compressible, spontaneous, phasic, POP V is compressible, spontaneous, phasic, competent and demonstrates normal competent and demonstrates normal augmentation. augmentation. T/P Trunk is compressible. T/P Trunk is compressible. PTV is compressible. PTV is compressible. RT PerV is compressible. LT PerV is compressible. SFJ is competent and measures 0.71 x 0.67 cm. SFJ is INCOMPETENT and measures 0.88 x 0.71 GSV proximal thigh measures 0.39 x 0.40 cm. cm. GSV at knee measures 0.41 x 0.35 cm. GSV proximal thigh measures 0.52 x 0.51 cm. GSV above knee is competent. GSV at knee measures 0.50 x 0.41 cm. GSV below knee is INCOMPETENT for greater GSV is competent throughout. than 0.5 seconds. SSV proximal calf is competent and measures SSV proximal calf is competent and measures 0.27 x 0.22 cm. 0.30 x 0.28 cm. Procedure This is a venous duplex using B-mode, color flow and spectral Doppler. Exam performed in department. The study was technically difficult. VL/Venous Duplex US - [place] Extrem Interpretation Summary Deep veins of the lower extremities are bilaterally patent and compressible seg mentally. There is no evidence of deep vein thrombosis on either side. Valvular competence appears in tact within the proximal deep venous systems bilaterally. The great saphenous veins appear bila terally patent and compressible segmentally. The right sapheno-femoral junction is competent . The left sapheno-femoral junction is incompetent . The right great saphenous vein appears competent abov e the knee. The right great saphenous vein appears incompetent below the knee. The left great sapheno us vein appears segmentally competent. Small saphenous veins are patent and competent bilateral ly. Ordering Physician: Lorenzo Burrows Referring Physician: Jeferson Vega Performed By: Azucena Marley RDCS, RVT
== END | disposition home or self-care (01) ==
LOC: WC 03-22 08:48 → CVS 15:00
PROVIDERS: PCP Internal Medicine; Visit Provider Surgery
DX: Z09 Encounter for follow-up examination after completed treatment for conditions other than malignant neoplasm (principal); D59.10 Autoimmune hemolytic anemia, unspecified; N18.30 Chronic kidney disease, stage 3 unspecified; I87.322 Chronic venous hypertension (idiopathic) with inflammation of left lower extremity; I12.9 Hypertensive chronic kidney disease with stage 1 through stage 4 chronic kidney disease, or unspecified chronic kidney disease; Z86.12 Personal history of poliomyelitis; Z79.82 Long term (current) use of aspirin; Z79.899 Other long term (current) drug therapy
CPT/HCPCS: 29580; 93970; 99213; G0463

== ENCOUNTER 2022-06-18 08:45 | Outpatient (RCR) | payer MEDICARE, BC, SELFPAY ==
[2022-05-28 08:21] VITALS: BP 123/55; PULSE 112; TEMP 35.6; BMI 39.6
--- NOTE | 2022-05-28 13:19 | HP.PCM_ITS ---
History of Present Illness Date of Service: 05/28/22 Chief Complaint: Venous stasis ulceration, pretibial area of the left lower extremity History of Wound: This is a 72-year-old female who has had chronic recurring ulcerations in her lower extremities. These are due to chronic venous disease. The ulcerations have been associated with swelling. The swelling is said to be worse late in the day. She was last treated for an ulcer in her left lower extremity last year, last seen at the [facility] on April 02, 2022. At that time, it was deemed that her left lower extremity venous ulceration had healed, and she was discharged with instructions to continue conservative treatment measures, including leg elevation, avoidance of idle standing and sitting, weight control measures, active lifestyle, and the use of graduated compression stockings of 20 to 30 mmHg, worn daily. The patient is ambulatory and claims to be relatively active. She sleeps on a flat mattress at night. However, she typically spends long hours each day sitting. She denies a history of thrombophlebitis. She is obese, with a BMI of 39.7. Her current ulceration was noted to occur spontaneously approximately 1 week ago. 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, right lower leg Venous stasis dermatitis of both lower extremities Venous stasis ulcer Home Medications Lisinopril/Hydrochlorothiazide [Zestoretic 20/12.5 Tablet] 2 tab PO DAILY bp 06/17/17 [History Last Taken 06/17/17] aspirin 81 mg chewable tablet 81 mg PO DAILY HEART HEALTH 06/17/17 [History Last Taken 06/17/17] cholecalciferol (vitamin D3) 25 mcg (1,000 unit) capsule (Vitamin D3) 1,000 unit PO DAILY SUPPLEMENT 06/17/17 [History Last Taken 06/17/17] cetirizine 10 mg tablet (Zyrtec) 10 mg PO DAILY ALLERGIES 06/18/17 [History Last Taken 06/17/17] pantoprazole 40 mg tablet,delayed release 40 mg PO DAILY #60 tabs 06/18/17 [Rx Last Taken Unknown] Allergy/AdvReac Type Severity Reaction Status Date / Time cephalexin [From Keflex] Allergy Hives Verified 06/17/17 22:11 Penicillins Allergy Hives Verified 06/17/17 22:11 Surgical History Status post appendectomy Social History Smoking Status: Never smoker Vital Signs Vital Signs Vital Signs: 05/28/22 08:21 Temperature 96.1 F L Temperature Source Temporal Pulse Rate 112 H Blood Pressure 123/55 H Blood Pressure Mean 77 Blood Pressure Source Monitor Weight Weight: 210 lb Body Mass Index (BMI) 39.6 Physical Exam Const alert, oriented x3, no apparent distress and well nourished Constitutional Narrative: The patient is obese, with a BMI of 39.7. General Appearance: cooperative, comfortable, well kempt and well developed Orientation / Consciousness: awake, oriented to person, oriented to place and oriented to time HEENT normocephalic and head/scalp atraumatic Head and Scalp: normal to inspection, normocephalic and atraumatic External Ear: external ears normal Eyes PERRL and EOMs intact bilaterally General Eye: normal appearance of both eyes Resp normal respiratory effort, normal air movement, no retractions and no use of accessory muscles Effort and Inspection: able to speak in complete sentences Extremity no calf tenderness General Extremity: Negative for clubbing or cyanosis Skin Wound Narrative: Slight swelling and edema are noted of the patient's left lower extremity. A large, clustered, superficial ulceration is noted on the distal aspect of the left lower extremity. There is no sign of infection or cellulitis. Dimensions are documented elsewhere. Diffuse venous dermatitis changes are noted in this area. Lipodermatosclerosis and hyperpigmentation are noted in the gaiter areas bilaterally. Neuro oriented x3, CN's II-XII intact bilaterally, moves all extremities and no focal motor deficits Sensorium / Orientation: awake, alert, oriented to person, oriented to place and oriented to time Psych Appearance: grossly normal and appropriate Attitude: calm Activity / Motor Behavior: appropriate eye contact Speech: normal speech Mood & Affect: euthymic mood Thought Process: normal thought process Thought Content: normal thought content Attention / Concentration: attention grossly intact Debridement Note Debridement Note No debridement was completed: No debridement was completed today Post-Debridement Measurements and Additional Note: Post-Debridement Measurements/Treatment - Nurse 1 - General Ulcer Assessment Start: 05/28/22 07:46 Freq: Status: Active Protocol: LOCO Activity Type Activity Date Activity User E-sign Co-sign Detail Recorded Client Recorded Date Recorded By Document 05/28/22 08:21 CHRISTY [id number] 05/28/22 08:27 CHRISTY 05/28/22 08:21 WC - Today's Visit Information Type of service Initial Visit Arrival Mode Ambulatory Patient Identification Verified (Name & Yes ) Patient Requires Transmission-Based No Precautions Height and Weight Height 5 ft 1 in Weight 210 lb Weight in Pounds 210.0 lbs Weight Measurement Method Estimated by Patient Body Mass Index (BMI) 39.6 BMI Classification Obese BSA - Sundeep 1.93 Vital Signs Temperature (97.8 F-99.1 F) 96.1 F L Temperature Source Temporal Pulse Rate (60-100) 112 H Blood Pressure (90/60-120/80) 123/55 H Blood Pressure Mean 77 Source Monitor History Since Last Visit- (Skip if this is Patient's initial visit) Left Footwear Regular Shoe Right Footwear Regular Shoe Pain Scale: 0-10 Numeric Is Patient Pain Free? Yes CRYSTAL - Nurse 1 - General Ulcer Measurement Start: 05/28/22 07:46 Freq: Status: Active Protocol: Activity Type Activity Date Activity User E-sign Co-sign Detail Recorded Client Recorded Date Recorded By Document 05/28/22 08:21 CHRISTY [id number] 05/28/22 08:27 CHRISTY 05/28/22 08:21 Wound Center Nurse 1 #2 L LE -Combined with other wound No -Current Size (cm) - Length 13.8 -Current Size (cm) - Width 17 -Current Size (cm) - Depth 0.1 -Total Square Cm 234.6 -Date of Last Picture (Recall this 05/28/22 field) -Photo Taken Yes -Tunneling No -Undermining/Tunneling No -Circular Undermining No -Change in Wound Grade/Stage No -Exudate Amt Large -Exudate Type Serosanguineous -Wound Margin Distinct, Outline Attached -Granulation Amt None Present (0 %) -Granulation Quality N/A -Slough/Fibrin Yes -Necrosis Amt Medium (34-66%) -Necrotic Tissue Type Adherent Slough -Structure Exposed N/A -Texture (Lety-wound Skin Appearance) Assessed, Excoriation -Moisture (Lety-wound Skin Appearance) Assessed, Weeping -Color (Lety-wound Skin Appearance) Assessed, Erythema -Temperature (Lety-wound Skin No Abnormality Appearance) (Pt Warm) -Tenderness on Palpation (Lety-wound Yes Skin Appearance) -Ulcer Cleansing Soap and Water -Anesthetic Used 4% Lidocaine Solution Right Calf (cm) 31.5 Right Ankle (cm) 27 Left Calf (cm) 41.5 Left Ankle (cm) 28 - Nurse 2 - General Ulcer CM Notes Start: 05/28/22 07:46 Freq: Status: Active Protocol: Activity Type Activity Date Activity User E-sign Co-sign Detail Recorded Client Recorded Date Recorded By Document 05/28/22 08:40 MW [id number] 05/28/22 08:44 MW 05/28/22 08:40 Wound Center Nurse 2 #2 L LE -Time 08:40 -Correct Patient Yes -Correct Side, Site, Position Yes -Correct Procedure Yes -Procedure Performed No -Tunneling No -Undermining/Tunneling No -Circular Undermining No -Wound/Ulcer Outcome Not Healed -Ulcer Cleansing Rinsed/ Irrigated with Saline -Bleeding Controlled with NA -Offloading No Pain Scale: 0-10 Numeric Is Patient Pain Free? Yes - Nurse 3 - General Ulcer D/C NN Start: 05/28/22 07:46 Freq: Status: Active Protocol: Activity Type Activity Date Activity User E-sign Co-sign Detail Recorded Client Recorded Date Recorded By Document 05/28/22 09:07 DL [id number] 05/28/22 09:09 DL 05/28/22 09:07 Wound Care Center Nurse 3 #2 L LE -Ulcer Cleansing Rinsed/ Irrigated with Saline -Foul Odor after Cleansing No -Other Dressing unna Left -Multi-Layered Wrap Application Unna Boot - Left ($) Treatment Response Procedure Tolerated Well Pain Scale: 0-10 Numeric Is Patient Pain Free? Yes - Visit Discharge Discharge Condition Stable Ambulatory Status Ambulatory Transportation Private Auto Assessment/Plan Assessment/Plan (1) Venous stasis ulcer: CODE(S): I83.009 - Varicose veins of unspecified lower extremity with ulcer of unspecified site; L97.909 - Non-pressure chronic ulcer of unspecified part of unspecified lower leg with unspecified severity QUALIFIERS: Venous stasis ulcer site: calf Varicose vein presence: with varicose veins Laterality: left Non-pressure ulcer stage: with fat layer exposed Qualified Code(s): I83.022 - Varicose veins of left lower extremity with ulcer of calf; L97.222 - Non-pressure chronic ulcer of left calf with fat layer exposed (2) Chronic venous hypertension w/ulcer and inflammation involv left side: CODE(S): I87.332 - Chronic venous hypertension (idiopathic) with ulcer and inflammation of left lower extremity; L97.929 - Non-pressure chronic ulcer of unspecified part of left lower leg with unspecified severity (3) Venous stasis dermatitis of both lower extremities: CODE(S): I87.2 - Venous insufficiency (chronic) (peripheral) (4) Chronic venous insufficiency: CODE(S): I87.2 - Venous insufficiency (chronic) (peripheral) (5) Hypertension: CODE(S): I10 - Essential (primary) hypertension (6) History of poliomyelitis: CODE(S): Z86.12 - Personal history of poliomyelitis (7) History of TIA (transient ischemic attack): CODE(S): Z86.73 - Personal history of transient ischemic attack (TIA), and cerebral infarction without residual deficits (8) Autoimmune hemolytic anemia: (9) Cerebrovascular disease: CODE(S): I67.9 - Cerebrovascular disease, unspecified (10) Chronic kidney disease, stage III (moderate): CODE(S): N18.30 - Chronic kidney disease, stage 3 unspecified (11) 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 She has experienced venous ulcerations in her lower extremities in the past. Previous measures have included conservative treatment measures, including leg elevation, avoidance of idle standing and sitting, graduated compression stockings, weight control measures, active lifestyle, etc. These measures have previously resulted in successful healing of the patient's ulcerations. However, her ulcerations have been recurrent, requiring repeated and lengthy medical management. In addition to the clustered ulceration, the patient is noted to have severe venous stasis changes in the left lower extremity, with lipodermatosclerosis and hyperpigmentation in the gaiter area. It has been recommended that the patient continue a protocol of conservative treatment measures. These measures have been discussed with patient in detail. The patient is to continue sleeping on a flat mattress at night. She has been encouraged to elevate her lower extremities is much as possible, even during daytime hours. As described to the patient, elevation is to be to heart level, or higher. This is to be implemented as much as possible each day. Prolonged idle sitting has been discouraged. Activity has been encouraged. We are to implement the use of an Unna boot to the left lower extremity, which will be re- applied twice weekly. She is to continue wearing graduated compression stockings in the right lower extremity, which does not demonstrate significant swelling, or significant skin changes. She has in her possession graduated compression stockings of 20 to 30 mmHg compression, which will be worn daily on the right lower extremity. The patient has been advised to lose weight, if possible. Given the chronic nature of the patient's venous disease, and her proclivity for developing venous stasis ulcerations, we have discussed the potential benefits of superficial venous ablation of superficial venous incompetence in her lower extremities. Recent prior venous duplex examination revealed competence of both the left great saphenous vein and small saphenous vein. This result is in question, and the patient indicates that she did not undergo testing in the standing or upright position. Therefore, it is likely that the venous duplex examination will be repeated for further assessment of the patient's left lower extremity venous status. The patient will return in 1 week for reassessment. Total time: 36 minutes
[2022-05-31 12:53] VITALS: BP 151/67; PULSE 101; RESP 18; TEMP 36.1
[2022-06-04 08:44] VITALS: BP 130/82; PULSE 105; RESP 19; TEMP 36.2; BMI 39.6
--- NOTE | 2022-06-04 13:42 | HP.PCM_ITS ---
History of Present Illness Date of Service: 06/04/22 Chief Complaint: Venous stasis ulceration, pretibial area of the left lower extremity History of Wound: This is a 72-year-old female who has had chronic recurring ulcerations in her lower extremities. These are due to chronic venous disease. The ulcerations have been associated with swelling. The swelling is said to be worse late in the day. She was last treated for an ulcer in her left lower extremity last year, last seen at the [facility] on April 02, 2022. At that time, it was deemed that her left lower extremity venous ulceration had healed, and she was discharged with instructions to continue conservative treatment measures, including leg elevation, avoidance of idle standing and sitting, weight control measures, active lifestyle, and the use of graduated compression stockings of 20 to 30 mmHg, worn daily. The patient is ambulatory and claims to be relatively active. She sleeps on a flat mattress at night. However, she typically spends long hours each day sitting. She denies a history of thrombophlebitis. She is obese, with a BMI of 39.7. Her current ulceration was noted to occur spontaneously approximately 1 week prior to presentation. 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, right lower leg Venous stasis dermatitis of both lower extremities Venous stasis ulcer Home Medications Lisinopril/Hydrochlorothiazide [Zestoretic 20/12.5 Tablet] 2 tab PO DAILY bp 06/17/17 [History Last Taken 06/17/17] aspirin 81 mg chewable tablet 81 mg PO DAILY HEART HEALTH 06/17/17 [History Last Taken 06/17/17] cholecalciferol (vitamin D3) 25 mcg (1,000 unit) capsule (Vitamin D3) 1,000 unit PO DAILY SUPPLEMENT 06/17/17 [History Last Taken 06/17/17] cetirizine 10 mg tablet (Zyrtec) 10 mg PO DAILY ALLERGIES 06/18/17 [History Last Taken 06/17/17] pantoprazole 40 mg tablet,delayed release 40 mg PO DAILY #60 tabs 06/18/17 [Rx Last Taken Unknown] Allergy/AdvReac Type Severity Reaction Status Date / Time cephalexin [From Keflex] Allergy Hives Verified 06/17/17 22:11 Penicillins Allergy Hives Verified 06/17/17 22:11 Surgical History Status post appendectomy Social History Smoking Status: Never smoker Vital Signs Vital Signs Vital Signs: 06/04/22 08:44 Temperature 97.2 F L Temperature Source Temporal Pulse Rate 105 H Respiratory Rate 19 H Blood Pressure 130/82 H Blood Pressure Mean 98 Blood Pressure Source Monitor Blood Pressure Position Sitting Blood Pressure Location Left Arm Weight Weight: 210 lb Body Mass Index (BMI) 39.6 Debridement Note Debridement Note Post-Debridement Measurements and Additional Note: Post-Debridement Measurements/Treatment WC - Nurse 1 - General Ulcer Assessment Start: 05/28/22 07:46 Freq: Status: Active Protocol: LOCO Activity Type Activity Date Activity User E-sign Co-sign Detail Recorded Client Recorded Date Recorded By Document 05/28/22 08:21 AK [id number] 05/28/22 08:27 AK Document 06/04/22 08:44 ML [id number] 06/04/22 08:48 ML 05/28/22 06/04/22 08:21 08:44 WC - Today's Visit Information Type of service Initial Visit Follow-up Visit (Physician/SAND TESTER ) Arrival Mode Ambulatory Ambulatory Transfer Assistance None Patient Identification Verified (Name & Yes Yes ) Patient Requires Transmission-Based No No Precautions Safety Precautions NA Height and Weight Height 5 ft 1 in Weight 210 lb Weight in Pounds 210.0 lbs Weight Measurement Method Estimated by Patient Body Mass Index (BMI) 39.6 39.6 BMI Classification Obese Obese BSA - Sundeep 1.93 Vital Signs Temperature (97.8 F-99.1 F) 96.1 F L 97.2 F L Temperature Source Temporal Temporal Pulse Rate (60-100) 112 H 105 H Pulse Location Monitor Respiratory Rate (12-18) 19 H Respiratory rate source Observation Blood Pressure (90/60-120/80) 123/55 H 130/82 H Blood Pressure Mean 77 98 Source Monitor Monitor Position Sitting Blood Pressure Location Left Arm History Since Last Visit- (Skip if this is Patient's initial visit) Have you changed medications since your No last visit? Any new allergies or adverse reactions No Had a fall/change in ADL's that may No increase risk of falls Signs or symptoms of abuse and/or No neglect since last visit Have you been in the hospital since your No last visit? Has dressing in place as prescribed No Has compression in place as prescribed N/A Has offloadiing in place as prescribed N/A Experienced any changes in pain level or No management Left Footwear Regular Shoe Regular Shoe Right Footwear Regular Shoe Regular Shoe Pain Scale: 0-10 Numeric Is Patient Pain Free? Yes Yes WC - Nurse 1 - General Ulcer Measurement Start: 05/28/22 07:46 Freq: Status: Active Protocol: Activity Type Activity Date Activity User E-sign Co-sign Detail Recorded Client Recorded Date Recorded By Document 05/28/22 08:21 AK [id number] 05/28/22 08:27 AK Document 05/31/22 12:55 MT [id number] 05/31/22 12:55 MT Document 06/04/22 08:44 ML [id number] 06/04/22 08:48 ML 05/28/22 05/31/22 06/04/22 08:21 12:55 08:44 Wound Center Nurse 1 #2 L LE -Combined with other wound No -Current Size (cm) - Length 13.8 1.2 -Current Size (cm) - Width 17 1 -Current Size (cm) - Depth 0.1 0.1 -Total Square Cm 234.6 1.2 -Date of Last Picture (Recall this 05/28/22 field) -Photo Taken Yes -Tunneling No -Undermining/Tunneling No -Circular Undermining No -Change in Wound Grade/Stage No -Exudate Amt Large Medium -Exudate Type Serosanguineous Serosanguineous -Wound Margin Distinct, Distinct, Outline Outline Attached Attached -Granulation Amt None Present (0 Small (1-33%) %) -Granulation Quality N/A [place] -Slough/Fibrin Yes -Necrosis Amt Medium (34-66%) None Present (0 %) -Necrotic Tissue Type Adherent Slough -Structure Exposed N/A -Texture (Lety-wound Skin Appearance) Assessed, Assessed Excoriation -Moisture (Lety-wound Skin Appearance) Assessed, Assessed Weeping -Color (Lety-wound Skin Appearance) Assessed, Assessed Erythema -Temperature (Lety-wound Skin No Abnormality No Abnormality Appearance) (Pt Warm) (Pt Warm) -Tenderness on Palpation (Lety-wound Yes No Skin Appearance) -Ulcer Cleansing Soap and Water Soap and Water -Foul Odor after Cleansing No -Anesthetic Used 4% Lidocaine 5% Lidocaine Solution Gel Right Calf (cm) 31.5 Right Ankle (cm) 27 Left Calf (cm) 41.5 40.5 38 Left Ankle (cm) 28 28 28 - Nurse 2 - General Ulcer CM Notes Start: 05/28/22 07:46 Freq: Status: Active Protocol: Activity Type Activity Date Activity User E-sign Co-sign Detail Recorded Client Recorded Date Recorded By Document 05/28/22 08:40 MW [id number] 05/28/22 08:44 MW Document 06/04/22 08:56 MW [id number] 06/04/22 08:58 MW 05/28/22 06/04/22 08:40 08:56 Wound Center Nurse 2 #2 L LE -Time 08:40 08:57 -Correct Patient Yes Yes -Correct Side, Site, Position Yes Yes -Correct Procedure Yes Yes -Procedure Performed No Yes -Type of Procedure Debridement -Clinical Debridement Subcutaneous -Tissue Removed Subcutaneous -Post Debridement (cm) - Length 1.4 -Post Debridement (cm) - Width 1.2 -Post Debridement (cm) - Depth 0.1 -Total Square (Post) (cm) 1.68 -Area of Debridement (cm) - Length 1.4 -Area of Debridement (cm) - Width 1.2 -Total Square (Area) (cm) 1.68 -Tunneling No No -Undermining/Tunneling No No -Circular Undermining No No -Wound/Ulcer Outcome Not Healed Not Healed -Ulcer Cleansing Rinsed/ Rinsed/ Irrigated with Irrigated with Saline Saline -Foul Odor after Cleansing No -Bioengineered Tissue No -Bleeding Controlled with NA Pressure -Treatment Response Procedure Tolerated Well -Offloading No No -Debridement - Subq, 1st 20sq cm Yes Pain Scale: 0-10 Numeric Is Patient Pain Free? Yes Yes - Nurse 3 - General Ulcer D/C NN Start: 05/28/22 07:46 Freq: Status: Active Protocol: Activity Type Activity Date Activity User E-sign Co-sign Detail Recorded Client Recorded Date Recorded By Document 05/28/22 09:07 DL [id number] 05/28/22 09:09 DL Document 05/31/22 12:53 MT [id number] 05/31/22 12:55 MT Document 06/04/22 08:59 ML [id number] 06/04/22 09:00 ML 05/28/22 05/31/22 06/04/22 09:07 12:53 08:59 Wound Care Center Nurse 3 #2 L LE -Ulcer Cleansing Rinsed/ Soap and Water Irrigated with Saline -Foul Odor after Cleansing No -Other Dressing unna -Primary Dressing Covered/Secured with Dry Gauze & Roll Gauze, Secured with Tape Left -Multi-Layered Wrap Application Unna Boot - Unna Boot - Unna Boot - Left ($) Left ($) Left ($) Treatment Response Procedure Tolerated Well Vital Signs Temperature (97.8 F-99.1 F) 97 F L Temperature Source Temporal Pulse Rate (60-100) 101 H Pulse Location Monitor Respiratory Rate (12-18) 18 Respiratory rate source Observation Oxygen Delivery Method Room Air Blood Pressure (90/60-120/80) 151/67 H Blood Pressure Mean 95 Source Monitor Position Sitting Blood Pressure Location Right Arm Pain Scale: 0-10 Numeric Is Patient Pain Free? Yes Yes Yes WC - Visit Discharge Discharge Condition Stable Stable Ambulatory Status Ambulatory Ambulatory Transportation Private Auto Private Auto Medication Reconcilliation completed & No provided to patient/care provider Clinical Summary of Care Provided Yes
--- NOTE | 2022-06-04 13:44 | HP.PCM_ITS ---
History of Present Illness Date of Service: 06/04/22 Chief Complaint: Venous stasis ulceration, pretibial area of the left lower extremity History of Wound: This is a 72-year-old female who has had chronic recurring ulcerations in her lower extremities. These are due to chronic venous disease. The ulcerations have been associated with swelling. The swelling is said to be worse late in the day. She was last treated for an ulcer in her left lower extremity last year, last seen at the [facility] on April 02, 2022. At that time, it was deemed that her left lower extremity venous ulceration had healed, and she was discharged with instructions to continue conservative treatment measures, including leg elevation, avoidance of idle standing and sitting, weight control measures, active lifestyle, and the use of graduated compression stockings of 20 to 30 mmHg, worn daily. The patient is ambulatory and claims to be relatively active. She sleeps on a flat mattress at night. However, she typically spends long hours each day sitting. She denies a history of thrombophlebitis. She is obese, with a BMI of 39.7. Her current ulceration was noted to occur spontaneously approximately 1 week prior to presentation. 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, right lower leg Venous stasis dermatitis of both lower extremities Venous stasis ulcer Home Medications Lisinopril/Hydrochlorothiazide [Zestoretic 20/12.5 Tablet] 2 tab PO DAILY bp 06/17/17 [History Last Taken 06/17/17] aspirin 81 mg chewable tablet 81 mg PO DAILY HEART HEALTH 06/17/17 [History Last Taken 06/17/17] cholecalciferol (vitamin D3) 25 mcg (1,000 unit) capsule (Vitamin D3) 1,000 unit PO DAILY SUPPLEMENT 06/17/17 [History Last Taken 06/17/17] cetirizine 10 mg tablet (Zyrtec) 10 mg PO DAILY ALLERGIES 06/18/17 [History Last Taken 06/17/17] pantoprazole 40 mg tablet,delayed release 40 mg PO DAILY #60 tabs 06/18/17 [Rx Last Taken Unknown] Allergy/AdvReac Type Severity Reaction Status Date / Time cephalexin [From Keflex] Allergy Hives Verified 06/17/17 22:11 Penicillins Allergy Hives Verified 06/17/17 22:11 Surgical History Status post appendectomy Social History Smoking Status: Never smoker Vital Signs Vital Signs Vital Signs: 06/04/22 08:44 Temperature 97.2 F L Temperature Source Temporal Pulse Rate 105 H Respiratory Rate 19 H Blood Pressure 130/82 H Blood Pressure Mean 98 Blood Pressure Source Monitor Blood Pressure Position Sitting Blood Pressure Location Left Arm Weight Weight: 210 lb Body Mass Index (BMI) 39.6 Physical Exam Const alert, oriented x3, no apparent distress and well nourished Constitutional Narrative: The patient is obese, with a BMI of 39.7. General Appearance: cooperative, comfortable, well kempt and well developed Orientation / Consciousness: awake, oriented to person, oriented to place and oriented to time HEENT normocephalic and head/scalp atraumatic Head and Scalp: normal to inspection, normocephalic and atraumatic External Ear: external ears normal Eyes PERRL and EOMs intact bilaterally General Eye: normal appearance of both eyes Resp normal respiratory effort, normal air movement, no retractions and no use of accessory muscles Effort and Inspection: able to speak in complete sentences Extremity no calf tenderness General Extremity: Negative for clubbing or cyanosis Skin Wound Narrative: Slight swelling and edema are noted of the patient's left lower extremity. A clustered, superficial ulceration is noted on the distal aspect of the left lower extremity. There is no sign of infection or cellulitis. Dimensions are documented elsewhere. Diffuse venous stasis dermatitis is noted in this area. Lipodermatosclerosis and hyperpigmentation are noted in the gaiter areas bilaterally. Neuro oriented x3, CN's II-XII intact bilaterally, moves all extremities and no focal motor deficits Sensorium / Orientation: awake, alert, oriented to person, oriented to place and oriented to time Psych Appearance: grossly normal and appropriate Attitude: calm Activity / Motor Behavior: appropriate eye contact Speech: normal speech Mood & Affect: euthymic mood Thought Process: normal thought process Thought Content: normal thought content Attention / Concentration: attention grossly intact Debridement Note Debridement Note Wound debrided: Venous ulceration, left lateral supramalleolar area Laterality: Left Type of Debridement: Excisional debridement Anesthesia Used: 5% Lidocaine Gel Depth: Down to and including healthy tissue and in the subcutaneous layer Percentage of wound debrided: 100 Instrument Used: 5mm curette Tissue Removed: Bioburden and nonviable tissue Severity: Fat Layer Exposed Amount of bleeding with debridement: Mild Bleeding Controlled with: Compression and gauze Patient tolerated procedure: Patient tolerated procedure well Post-Debridement Measurements and Additional Note: Post-Debridement Measurements/Treatment - Nurse 1 - General Ulcer Assessment Start: 05/28/22 07:46 Freq: Status: Active Protocol: [employer]guez Activity Type Activity Date Activity User E-sign Co-sign Detail Recorded Client Recorded Date Recorded By Document 05/28/22 08:21 AK [id number] 05/28/22 08:27 AK Document 06/04/22 08:44 ML [id number] 06/04/22 08:48 ML 05/28/22 06/04/22 08:21 08:44 - Today's Visit Information Type of service Initial Visit Follow-up Visit (Physician/[employer] ) Arrival Mode Ambulatory Ambulatory Transfer Assistance None Patient Identification Verified (Name & Yes Yes ) Patient Requires Transmission-Based No No Precautions Safety Precautions NA Height and Weight Height 5 ft 1 in Weight 210 lb Weight in Pounds 210.0 lbs Weight Measurement Method Estimated by Patient Body Mass Index (BMI) 39.6 39.6 BMI Classification Obese Obese BSA - Sundeep 1.93 Vital Signs Temperature (97.8 F-99.1 F) 96.1 F L 97.2 F L Temperature Source Temporal Temporal Pulse Rate (60-100) 112 H 105 H Pulse Location Monitor Respiratory Rate (12-18) 19 H Respiratory rate source Observation Blood Pressure (90/60-120/80) 123/55 H 130/82 H Blood Pressure Mean 77 98 Source Monitor Monitor Position Sitting Blood Pressure Location Left Arm History Since Last Visit- (Skip if this is Patient's initial visit) Have you changed medications since your No last visit? Any new allergies or adverse reactions No Had a fall/change in ADL's that may No increase risk of falls Signs or symptoms of abuse and/or No neglect since last visit Have you been in the hospital since your No last visit? Has dressing in place as prescribed No Has compression in place as prescribed N/A Has offloadiing in place as prescribed N/A Experienced any changes in pain level or No management Left Footwear Regular Shoe Regular Shoe Right Footwear Regular Shoe Regular Shoe Pain Scale: 0-10 Numeric Is Patient Pain Free? Yes Yes WC - Nurse 1 - General Ulcer Measurement Start: 05/28/22 07:46 Freq: Status: Active Protocol: Activity Type Activity Date Activity User E-sign Co-sign Detail Recorded Client Recorded Date Recorded By Document 05/28/22 08:21 AK [id number] 05/28/22 08:27 AK Document 05/31/22 12:55 MT [id number] 05/31/22 12:55 MT Document 06/04/22 08:44 ML [id number] 06/04/22 08:48 ML 05/28/22 05/31/22 06/04/22 08:21 12:55 08:44 Wound Center Nurse 1 #2 L LE -Combined with other wound No -Current Size (cm) - Length 13.8 1.2 -Current Size (cm) - Width 17 1 -Current Size (cm) - Depth 0.1 0.1 -Total Square Cm 234.6 1.2 -Date of Last Picture (Recall this 05/28/22 field) -Photo Taken Yes -Tunneling No -Undermining/Tunneling No -Circular Undermining No -Change in Wound Grade/Stage No -Exudate Amt Large Medium -Exudate Type Serosanguineous Serosanguineous -Wound Margin Distinct, Distinct, Outline Outline Attached Attached -Granulation Amt None Present (0 Small (1-33%) %) -Granulation Quality N/A [place] -Slough/Fibrin Yes -Necrosis Amt Medium (34-66%) None Present (0 %) -Necrotic Tissue Type Adherent Slough -Structure Exposed N/A -Texture (Lety-wound Skin Appearance) Assessed, Assessed Excoriation -Moisture (Lety-wound Skin Appearance) Assessed, Assessed Weeping -Color (Lety-wound Skin Appearance) Assessed, Assessed Erythema -Temperature (Lety-wound Skin No Abnormality No Abnormality Appearance) (Pt Warm) (Pt Warm) -Tenderness on Palpation (Lety-wound Yes No Skin Appearance) -Ulcer Cleansing Soap and Water Soap and Water -Foul Odor after Cleansing No -Anesthetic Used 4% Lidocaine 5% Lidocaine Solution Gel Right Calf (cm) 31.5 Right Ankle (cm) 27 Left Calf (cm) 41.5 40.5 38 Left Ankle (cm) 28 28 28 WC - Nurse 2 - General Ulcer CM Notes Start: 05/28/22 07:46 Freq: Status: Active Protocol: Activity Type Activity Date Activity User E-sign Co-sign Detail Recorded Client Recorded Date Recorded By Document 05/28/22 08:40 MW [id number] 05/28/22 08:44 MW Document 06/04/22 08:56 MW [id number] 06/04/22 08:58 MW 05/28/22 06/04/22 08:40 08:56 Wound Center Nurse 2 #2 L LE -Time 08:40 08:57 -Correct Patient Yes Yes -Correct Side, Site, Position Yes Yes -Correct Procedure Yes Yes -Procedure Performed No Yes -Type of Procedure Debridement -Clinical Debridement Subcutaneous -Tissue Removed Subcutaneous -Post Debridement (cm) - Length 1.4 -Post Debridement (cm) - Width 1.2 -Post Debridement (cm) - Depth 0.1 -Total Square (Post) (cm) 1.68 -Area of Debridement (cm) - Length 1.4 -Area of Debridement (cm) - Width 1.2 -Total Square (Area) (cm) 1.68 -Tunneling No No -Undermining/Tunneling No No -Circular Undermining No No -Wound/Ulcer Outcome Not Healed Not Healed -Ulcer Cleansing Rinsed/ Rinsed/ Irrigated with Irrigated with Saline Saline -Foul Odor after Cleansing No -Bioengineered Tissue No -Bleeding Controlled with NA Pressure -Treatment Response Procedure Tolerated Well -Offloading No No -Debridement - Subq, 1st 20sq cm Yes Pain Scale: 0-10 Numeric Is Patient Pain Free? Yes Yes WC - Nurse 3 - General Ulcer D/C NN Start: 05/28/22 07:46 Freq: Status: Active Protocol: Activity Type Activity Date Activity User E-sign Co-sign Detail Recorded Client Recorded Date Recorded By Document 05/28/22 09:07 DL [id number] 05/28/22 09:09 DL Document 05/31/22 12:53 MT [id number] 05/31/22 12:55 MT Document 06/04/22 08:59 ML [id number] 06/04/22 09:00 ML 05/28/22 05/31/22 06/04/22 09:07 12:53 08:59 Wound Care Center Nurse 3 #2 L LE -Ulcer Cleansing Rinsed/ Soap and Water Irrigated with Saline -Foul Odor after Cleansing No -Other Dressing unna -Primary Dressing Covered/Secured with Dry Gauze & Roll Gauze, Secured with Tape Left -Multi-Layered Wrap Application Unna Boot - Unna Boot - Unna Boot - Left ($) Left ($) Left ($) Treatment Response Procedure Tolerated Well Vital Signs Temperature (97.8 F-99.1 F) 97 F L Temperature Source Temporal Pulse Rate (60-100) 101 H Pulse Location Monitor Respiratory Rate (12-18) 18 Respiratory rate source Observation Oxygen Delivery Method Room Air Blood Pressure (90/60-120/80) 151/67 H Blood Pressure Mean 95 Source Monitor Position Sitting Blood Pressure Location Right Arm Pain Scale: 0-10 Numeric Is Patient Pain Free? Yes Yes Yes WC - Visit Discharge Discharge Condition Stable Stable Ambulatory Status Ambulatory Ambulatory Transportation Private Auto Private Auto Medication Reconcilliation completed & No provided to patient/care provider Clinical Summary of Care Provided Yes Assessment/Plan Assessment/Plan (1) Venous stasis ulcer: CODE(S): I83.009 - Varicose veins of unspecified lower extremity with ulcer of unspecified site; L97.909 - Non-pressure chronic ulcer of unspecified part of unspecified lower leg with unspecified severity QUALIFIERS: Venous stasis ulcer site: calf Varicose vein presence: with varicose veins Laterality: left Non-pressure ulcer stage: with fat layer exposed Qualified Code(s): I83.022 - Varicose veins of left lower extremity with ulcer of calf; L97.222 - Non-pressure chronic ulcer of left calf with fat layer exposed (2) Chronic venous hypertension w/ulcer and inflammation involv left side: CODE(S): I87.332 - Chronic venous hypertension (idiopathic) with ulcer and inflammation of left lower extremity; L97.929 - Non-pressure chronic ulcer of unspecified part of left lower leg with unspecified severity (3) Venous stasis dermatitis of both lower extremities: CODE(S): I87.2 - Venous insufficiency (chronic) (peripheral) (4) Chronic venous insufficiency: CODE(S): I87.2 - Venous insufficiency (chronic) (peripheral) (5) Hypertension: CODE(S): I10 - Essential (primary) hypertension (6) History of poliomyelitis: CODE(S): Z86.12 - Personal history of poliomyelitis (7) History of TIA (transient ischemic attack): CODE(S): Z86.73 - Personal history of transient ischemic attack (TIA), and cerebral infarction without residual deficits (8) Autoimmune hemolytic anemia: (9) Cerebrovascular disease: CODE(S): I67.9 - Cerebrovascular disease, unspecified (10) Chronic kidney disease, stage III (moderate): CODE(S): N18.30 - Chronic kidney disease, stage 3 unspecified (11) 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 She has experienced venous ulcerations in her lower extremities in the past. Previous measures have included conservative treatment measures, including leg elevation, avoidance of idle standing and sitting, graduated compression stockings, weight control measures, active lifestyle, etc. These measures have previously resulted in successful healing of the patient's ulcerations. However, her ulcerations have been recurrent, requiring repeated and lengthy medical management. In addition to the clustered ulceration, the patient is noted to have severe venous stasis changes in the left lower extremity, with lipodermatosclerosis and hyperpigmentation in the gaiter area. It has been recommended that the patient continue a protocol of conservative treatment measures. These measures have been discussed with patient in detail. The patient is to continue sleeping on a flat mattress at night. She has been encouraged to elevate her lower extremities is much as possible, even during daytime hours. As described to the patient, elevation is to be to heart level, or higher. This is to be implemented as much as possible each day. Prolonged idle sitting has been discouraged. Activity has been encouraged. We are to continue the use of an Unna boot to the left lower extremity, which will be re- applied twice weekly. She is to continue wearing graduated compression stockings in the right lower extremity, which does not demonstrate significant swelling, or significant skin changes. She has in her possession graduated compression stockings of 20 to 30 mmHg compression, which will be worn daily on the right lower extremity. The patient has been advised to lose weight, if possible. Given the chronic nature of the patient's venous disease, and her proclivity for developing venous stasis ulcerations, we have discussed the potential benefits of superficial venous ablation of superficial venous incompetence in her lower extremities. Recent prior venous duplex examination revealed competence of both the left great saphenous vein and small saphenous vein. This result is in question, and the patient indicates that she did not undergo testing in the standing or upright position. Therefore, we are to repeat the venous duplex examination in the near future to reassess the venous competence and patency in the lower extremities. The patient will return in 1 week for reassessment. Total time: 26 minutes
[2022-06-07 13:33] VITALS: BP 137/79; PULSE 99; RESP 16; TEMP 36.1; BMI 39.6
[2022-06-11 08:46] VITALS: BP 143/56; PULSE 97; RESP 20; TEMP 36.4; BMI 39.6
--- NOTE | 2022-06-11 09:16 | VDLE_ITS ---
Reason For Study: wound RIGHT LEFT CFV is compressible, spontaneous, phasic, CFV is compressible, spontaneous, phasic, competent and demonstrates normal competent, and demonstrates normal augmentation. augmentation. FV is compressible, spontaneous, phasic, FV is compressible, spontaneous, phasic, competent and demonstrates normal competent and demonstrates normal augmentation. augmentation. POP V is compressible, spontaneous, phasic, POP V is compressible, spontaneous, phasic, competent and demonstrates normal competent and demonstrates normal augmentation. augmentation. T/P Trunk is compressible. T/P Trunk is compressible. PTV is compressible. PTV is compressible. RT PerV is compressible. LT PerV is compressible. SFJ is competent and measures .63 cm. SFJ is competent and measures .62 cm. GSV proximal thigh measures .21 x .24 cm. GSV proximal thigh measures .4 x .43 cm. GSV at knee measures .3 x .34 cm. GSV at knee measures .52 x .52 cm. GSV INCOMPETENT throughout for greater than GSV INCOMPETENT throughout for greater than 0.5 seconds. 0.5 seconds. ASV at knee is INCOMPETENT for greater than SSV proximal calf is INCOMPETENT for greater 0.5 seconds and measures .16 x .19 cm. than 0.5 seconds and measures .27 x .27 cm. SSV proximal calf is competent and ASV at knee is INCOMPETENT for greater than measures .15 x .19 cm. 0.5 seconds and measures .16 cm. Procedure ASV proximal calf is INCOMPETENT for greater This is a venous duplex using B-mode, color than 0.5 seconds and measures .27 cm. flow and spectral Doppler. Exam performed in department. The exam was diagnostic. VL/Venous Duplex US - [place] Extrem Interpretation Summary Deep veins of the lower extremities are bilaterally patent and compressible seg mentally. There is no evidence of deep vein thrombosis on either side. Valvular competence appears in tact within the proximal deep venous systems bilaterally. The great saphenous veins appear bila terally patent and compressible segmentally. Sapheno-femoral junctions are bilaterally competent . Segmental valvular incompetence is noted within the great saphenous veins bilaterally. The right s mall saphenous vein is patent and competent. The left small saphenous vein is patent and incompeten t. The accessory saphenous vein at the right knee is incompetent. The accessory saphenous vein a t the left knee is incompetent. The accessory saphenous vein in the left proximal calf is incompet ent. Ordering Physician: Lorenzo Burrows Performed By: Erickson Wahl RVT
--- NOTE | 2022-06-11 12:07 | PCM.WC.HP ---
History of Present Illness Date of Service: 06/11/22 Chief Complaint: Venous stasis ulceration, left lower extremity History of Wound: This is a 72-year-old female who has had chronic recurring ulcerations in her lower extremities. These are due to chronic venous disease. The ulcerations have been associated with swelling. The swelling is said to be worse late in the day. She was last treated for an ulcer in her left lower extremity last year, last seen at the [facility] on April 02, 2022. At that time, it was deemed that her left lower extremity venous ulceration had healed, and she was discharged with instructions to continue conservative treatment measures, including leg elevation, avoidance of idle standing and sitting, weight control measures, active lifestyle, and the use of graduated compression stockings of 20 to 30 mmHg, worn daily. The patient is ambulatory and claims to be relatively active. She sleeps on a flat mattress at night. However, she typically spends long hours each day sitting. She denies a history of thrombophlebitis. She is obese, with a BMI of 39.7. Her left lower extremity ulceration was noted to occur spontaneously approximately 1 week prior to presentation. 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, right lower leg Venous stasis dermatitis of both lower extremities Venous stasis ulcer Home Medications Lisinopril/Hydrochlorothiazide [Zestoretic 20/12.5 Tablet] 2 tab PO DAILY bp 06/17/17 [History Last Taken 06/17/17] aspirin 81 mg chewable tablet 81 mg PO DAILY HEART HEALTH 06/17/17 [History Last Taken 06/17/17] cholecalciferol (vitamin D3) 25 mcg (1,000 unit) capsule (Vitamin D3) 1,000 unit PO DAILY SUPPLEMENT 06/17/17 [History Last Taken 06/17/17] cetirizine 10 mg tablet (Zyrtec) 10 mg PO DAILY ALLERGIES 06/18/17 [History Last Taken 06/17/17] pantoprazole 40 mg tablet,delayed release 40 mg PO DAILY #60 tabs 06/18/17 [Rx Last Taken Unknown] Allergy/AdvReac Type Severity Reaction Status Date / Time cephalexin [From Keflex] Allergy Hives Verified 06/17/17 22:11 Penicillins Allergy Hives Verified 06/17/17 22:11 Surgical History Status post appendectomy Social History Smoking Status: Never smoker Vital Signs Vital Signs Vital Signs: 06/11/22 08:46 Temperature 97.5 F L Temperature Source Temporal Pulse Rate 97 Respiratory Rate 20 H Blood Pressure 143/56 H Blood Pressure Mean 85 Blood Pressure Source Monitor Weight Weight: 210 lb Body Mass Index (BMI) 39.6 Physical Exam Const alert, oriented x3, no apparent distress and well nourished Constitutional Narrative: The patient is obese, with a BMI of 39.7. General Appearance: cooperative, comfortable, well kempt and well developed Orientation / Consciousness: awake, oriented to person, oriented to place and oriented to time HEENT normocephalic and head/scalp atraumatic Head and Scalp: normal to inspection, normocephalic and atraumatic External Ear: external ears normal Eyes PERRL and EOMs intact bilaterally General Eye: normal appearance of both eyes Resp normal respiratory effort, normal air movement, no retractions and no use of accessory muscles Effort and Inspection: able to speak in complete sentences Extremity no calf tenderness General Extremity: Negative for clubbing or cyanosis Skin Wound Narrative: Slight swelling and edema are noted of the patient's left lower extremity. A clustered, superficial ulceration is noted near the left lateral malleolus. There is no sign of infection or cellulitis. Dimensions are documented elsewhere. Diffuse venous stasis dermatitis is noted in this area. Lipodermatosclerosis and hyperpigmentation are noted in the gaiter areas bilaterally. Neuro oriented x3, CN's II-XII intact bilaterally, moves all extremities and no focal motor deficits Sensorium / Orientation: awake, alert, oriented to person, oriented to place and oriented to time Psych Appearance: grossly normal and appropriate Attitude: calm Activity / Motor Behavior: appropriate eye contact Speech: normal speech Mood & Affect: euthymic mood Thought Process: normal thought process Thought Content: normal thought content Attention / Concentration: attention grossly intact Debridement Note Debridement Note No debridement was completed: No debridement was completed today Post-Debridement Measurements and Additional Note: Post-Debridement Measurements/Treatment WC - Nurse 1 - General Ulcer Assessment Start: 05/28/22 07:46 Freq: Status: Active Protocol: LOCO Activity Type Activity Date Activity User E-sign Co-sign Detail Recorded Client Recorded Date Recorded By Document 05/28/22 08:21 AK [id number] 05/28/22 08:27 AK Document 06/04/22 08:44 ML [id number] 06/04/22 08:48 ML Document 06/07/22 13:33 ML [id number] 06/07/22 13:35 ML Document 06/11/22 08:46 DL [id number] 06/11/22 08:55 DL 05/28/22 06/04/22 06/07/22 08:21 08:44 13:33 WC - Today's Visit Information Type of service Initial Visit Follow-up Visit Nurse-only (Physician/[employer] Visit ) Arrival Mode Ambulatory Ambulatory Ambulatory Transfer Assistance None Patient Identification Verified (Name & Yes Yes Yes ) Patient Requires Transmission-Based No No No Precautions Safety Precautions NA NA Height and Weight Height 5 ft 1 in Weight 210 lb Weight in Pounds 210.0 lbs Weight Measurement Method Estimated by Patient Body Mass Index (BMI) 39.6 39.6 39.6 BMI Classification Obese Obese Obese BSA - Sundeep 1.93 Vital Signs Temperature (97.8 F-99.1 F) 96.1 F L 97.2 F L 97.0 F L Temperature Source Temporal Temporal Temporal Pulse Rate (60-100) 112 H 105 H 99 Pulse Location Monitor Monitor Respiratory Rate (12-18) 19 H 16 Respiratory rate source Observation Observation Blood Pressure (90/60-120/80) 123/55 H 130/82 H 137/79 H Blood Pressure Mean 77 98 98 Source Monitor Monitor Monitor Position Sitting Sitting Blood Pressure Location Left Arm Left Arm History Since Last Visit- (Skip if this is Patient's initial visit) Have you changed medications since your No No last visit? Any new allergies or adverse reactions No No Had a fall/change in ADL's that may No No increase risk of falls Signs or symptoms of abuse and/or No No neglect since last visit Have you been in the hospital since your No No last visit? Has dressing in place as prescribed No No Has compression in place as prescribed N/A Yes Has offloadiing in place as prescribed N/A N/A Experienced any changes in pain level or No No management Left Footwear Regular Shoe Regular Shoe Regular Shoe Right Footwear Regular Shoe Regular Shoe Regular Shoe Pain Scale: 0-10 Numeric Is Patient Pain Free? Yes Yes Yes 06/11/22 08:46 WC - Today's Visit Information Type of service Follow-up Visit (Physician/[employer] ) Arrival Mode Ambulatory Transfer Assistance None Patient Identification Verified (Name & Yes ) Patient Requires Transmission-Based No Precautions Safety Precautions Height and Weight Height Weight Weight in Pounds Weight Measurement Method Body Mass Index (BMI) 39.6 BMI Classification Obese BSA - Sundeep Vital Signs Temperature (97.8 F-99.1 F) 97.5 F L Temperature Source Temporal Pulse Rate (60-100) 97 Pulse Location Monitor Respiratory Rate (12-18) 20 H Respiratory rate source Observation Blood Pressure (90/60-120/80) 143/56 H Blood Pressure Mean 85 Source Monitor Position Blood Pressure Location History Since Last Visit- (Skip if this is Patient's initial visit) Have you changed medications since your No last visit? Any new allergies or adverse reactions No Had a fall/change in ADL's that may No increase risk of falls Signs or symptoms of abuse and/or No neglect since last visit Have you been in the hospital since your No last visit? Has dressing in place as prescribed Yes Has compression in place as prescribed Yes Has offloadiing in place as prescribed N/A Experienced any changes in pain level or No management Left Footwear Right Footwear Pain Scale: 0-10 Numeric Is Patient Pain Free? Yes - Nurse 1 - General Ulcer Measurement Start: 05/28/22 07:46 Freq: Status: Active Protocol: Activity Type Activity Date Activity User E-sign Co-sign Detail Recorded Client Recorded Date Recorded By Document 05/28/22 08:21 AK [id number] 05/28/22 08:27 AK Document 05/31/22 12:55 MT [id number] 05/31/22 12:55 MT Document 06/04/22 08:44 ML [id number] 06/04/22 08:48 ML Document 06/11/22 08:46 DL [id number] 06/11/22 08:55 DL 05/28/22 05/31/22 06/04/22 08:21 12:55 08:44 Wound Center Nurse 1 #2 L LE -Combined with other wound No -Current Size (cm) - Length 13.8 1.2 -Current Size (cm) - Width 17 1 -Current Size (cm) - Depth 0.1 0.1 -Total Square Cm 234.6 1.2 -Date of Last Picture (Recall this 05/28/22 field) -Photo Taken Yes -Tunneling No -Undermining/Tunneling No -Circular Undermining No -Change in Wound Grade/Stage No -Exudate Amt Large Medium -Exudate Type Serosanguineous Serosanguineous -Wound Margin Distinct, Distinct, Outline Outline Attached Attached -Granulation Amt None Present (0 Small (1-33%) %) -Granulation Quality N/A [place] -Slough/Fibrin Yes -Necrosis Amt Medium (34-66%) None Present (0 %) -Necrotic Tissue Type Adherent Slough -Structure Exposed N/A -Texture (Lety-wound Skin Appearance) Assessed, Assessed Excoriation -Moisture (Lety-wound Skin Appearance) Assessed, Assessed Weeping -Color (Lety-wound Skin Appearance) Assessed, Assessed Erythema -Temperature (Lety-wound Skin No Abnormality No Abnormality Appearance) (Pt Warm) (Pt Warm) -Tenderness on Palpation (Lety-wound Yes No Skin Appearance) -Ulcer Cleansing Soap and Water Soap and Water -Foul Odor after Cleansing No -Anesthetic Used 4% Lidocaine 5% Lidocaine Solution Gel Right Calf (cm) 31.5 Right Ankle (cm) 27 Left Calf (cm) 41.5 40.5 38 Left Ankle (cm) 28 28 28 06/11/22 08:46 Wound Center Nurse 1 #2 L LE -Combined with other wound -Current Size (cm) - Length 0.3 -Current Size (cm) - Width 0.3 -Current Size (cm) - Depth 0.1 -Total Square Cm 0.09 -Date of Last Picture (Recall this field) -Photo Taken No -Tunneling -Undermining/Tunneling -Circular Undermining -Change in Wound Grade/Stage -Exudate Amt Small -Exudate Type Sanguineous -Wound Margin Distinct, Outline Attached -Granulation Amt Large (67-100%) -Granulation Quality [place] -Slough/Fibrin -Necrosis Amt None Present (0 %) -Necrotic Tissue Type -Structure Exposed N/A -Texture (Lety-wound Skin Appearance) Localized Edema ,Scarring -Moisture (Lety-wound Skin Appearance) Dry/Scaly -Color (Lety-wound Skin Appearance) Hemosiderin Staining -Temperature (Lety-wound Skin No Abnormality Appearance) (Pt Warm) -Tenderness on Palpation (Lety-wound No Skin Appearance) -Ulcer Cleansing Soap and Water -Foul Odor after Cleansing No -Anesthetic Used 5% Lidocaine Gel Right Calf (cm) Right Ankle (cm) Left Calf (cm) 38.6 Left Ankle (cm) 26.8 WC - Nurse 2 - General Ulcer CM Notes Start: 05/28/22 07:46 Freq: Status: Active Protocol: Activity Type Activity Date Activity User E-sign Co-sign Detail Recorded Client Recorded Date Recorded By Document 05/28/22 08:40 MW [id number] 05/28/22 08:44 MW Document 06/04/22 08:56 MW [id number] 06/04/22 08:58 MW Document 06/11/22 08:58 MW [id number] 06/11/22 09:01 MW 05/28/22 06/04/22 06/11/22 08:40 08:56 08:58 Wound Center Nurse 2 #2 L LE -Time 08:40 08:57 08:59 -Correct Patient Yes Yes Yes -Correct Side, Site, Position Yes Yes Yes -Correct Procedure Yes Yes Yes -Procedure Performed No Yes No -Type of Procedure Debridement -Clinical Debridement Subcutaneous -Tissue Removed Subcutaneous -Post Debridement (cm) - Length 1.4 -Post Debridement (cm) - Width 1.2 -Post Debridement (cm) - Depth 0.1 -Total Square (Post) (cm) 1.68 -Area of Debridement (cm) - Length 1.4 -Area of Debridement (cm) - Width 1.2 -Total Square (Area) (cm) 1.68 -Tunneling No No No -Undermining/Tunneling No No No -Circular Undermining No No No -Wound/Ulcer Outcome Not Healed Not Healed Not Healed -Ulcer Cleansing Rinsed/ Rinsed/ Rinsed/ Irrigated with Irrigated with Irrigated with Saline Saline Saline -Foul Odor after Cleansing No No -Bioengineered Tissue No No -Bleeding Controlled with NA Pressure NA -Treatment Response Procedure Procedure Tolerated Well Tolerated Well -Offloading No No No -Debridement - Subq, 1st 20sq cm Yes Pain Scale: 0-10 Numeric Is Patient Pain Free? Yes Yes Yes - Nurse 3 - General Ulcer D/C NN Start: 05/28/22 07:46 Freq: Status: Active Protocol: Activity Type Activity Date Activity User E-sign Co-sign Detail Recorded Client Recorded Date Recorded By Document 05/28/22 09:07 DL [id number] 05/28/22 09:09 DL Document 05/31/22 12:53 MT [id number] 05/31/22 12:55 MT Document 06/04/22 08:59 ML [id number] 06/04/22 09:00 ML Document 06/07/22 13:33 ML [id number] 06/07/22 13:35 ML 05/28/22 05/31/22 06/04/22 09:07 12:53 08:59 Wound Care Center Nurse 3 #2 L LE -Ulcer Cleansing Rinsed/ Soap and Water Irrigated with Saline -Foul Odor after Cleansing No -Other Dressing unna -Primary Dressing Covered/Secured with Dry Gauze & Roll Gauze, Secured with Tape Left -Multi-Layered Wrap Application Unna Boot - Unna Boot - Unna Boot - Left ($) Left ($) Left ($) Treatment Response Procedure Tolerated Well Vital Signs Temperature (97.8 F-99.1 F) 97 F L Temperature Source Temporal Pulse Rate (60-100) 101 H Pulse Location Monitor Respiratory Rate (12-18) 18 Respiratory rate source Observation Oxygen Delivery Method Room Air Blood Pressure (90/60-120/80) 151/67 H Blood Pressure Mean 95 Source Monitor Position Sitting Blood Pressure Location Right Arm Pain Scale: 0-10 Numeric Is Patient Pain Free? Yes Yes Yes WC - Visit Discharge Discharge Condition Stable Stable Ambulatory Status Ambulatory Ambulatory Transportation Private Auto Private Auto Medication Reconcilliation completed & No provided to patient/care provider Clinical Summary of Care Provided Yes 06/07/22 13:33 Wound Care Center Nurse 3 #2 L LE -Ulcer Cleansing -Foul Odor after Cleansing -Other Dressing -Primary Dressing Covered/Secured with Left -Multi-Layered Wrap Application Unna Boot - Left ($) Treatment Response Vital Signs Temperature (97.8 F-99.1 F) 97.0 F L Temperature Source Temporal Pulse Rate (60-100) 99 Pulse Location Monitor Respiratory Rate (12-18) 16 Respiratory rate source Observation Oxygen Delivery Method Blood Pressure (90/60-120/80) 137/79 H Blood Pressure Mean 98 Source Monitor Position Sitting Blood Pressure Location Left Arm Pain Scale: 0-10 Numeric Is Patient Pain Free? Yes WC - Visit Discharge Discharge Condition Ambulatory Status Transportation Medication Reconcilliation completed & provided to patient/care provider Clinical Summary of Care Provided Assessment/Plan Assessment/Plan (1) Venous stasis ulcer: CODE(S): I83.009 - Varicose veins of unspecified lower extremity with ulcer of unspecified site; L97.909 - Non-pressure chronic ulcer of unspecified part of unspecified lower leg with unspecified severity QUALIFIERS: Venous stasis ulcer site: calf Varicose vein presence: with varicose veins Laterality: left Non-pressure ulcer stage: with fat layer exposed Qualified Code(s): I83.022 - Varicose veins of left lower extremity with ulcer of calf; L97.222 - Non-pressure chronic ulcer of left calf with fat layer exposed (2) Chronic venous hypertension w/ulcer and inflammation involv left side: CODE(S): I87.332 - Chronic venous hypertension (idiopathic) with ulcer and inflammation of left lower extremity; L97.929 - Non-pressure chronic ulcer of unspecified part of left lower leg with unspecified severity (3) Venous stasis dermatitis of both lower extremities: CODE(S): I87.2 - Venous insufficiency (chronic) (peripheral) (4) Chronic venous insufficiency: CODE(S): I87.2 - Venous insufficiency (chronic) (peripheral) (5) Hypertension: CODE(S): I10 - Essential (primary) hypertension (6) History of poliomyelitis: CODE(S): Z86.12 - Personal history of poliomyelitis (7) History of TIA (transient ischemic attack): CODE(S): Z86.73 - Personal history of transient ischemic attack (TIA), and cerebral infarction without residual deficits (8) Autoimmune hemolytic anemia: (9) Cerebrovascular disease: CODE(S): I67.9 - Cerebrovascular disease, unspecified (10) Chronic kidney disease, stage III (moderate): CODE(S): N18.30 - Chronic kidney disease, stage 3 unspecified (11) 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 She has experienced venous ulcerations in her lower extremities in the past. Previous measures have included conservative treatment measures, including leg elevation, avoidance of idle standing and sitting, graduated compression stockings, weight control measures, active lifestyle, etc. These measures have previously resulted in successful healing of the patient's ulcerations. However, her ulcerations have been recurrent, requiring repeated and lengthy medical management. In addition to the clustered ulceration, the patient is noted to have severe venous stasis changes in the left lower extremity, with lipodermatosclerosis and hyperpigmentation in the gaiter area. It has been recommended that the patient continue a protocol of conservative treatment measures. These measures have been discussed with patient in detail. The patient is to continue sleeping on a flat mattress at night. She has been encouraged to elevate her lower extremities is much as possible, even during daytime hours. As described to the patient, elevation is to be to heart level, or higher. This is to be implemented as much as possible each day. Prolonged idle sitting has been discouraged. Activity has been encouraged. We are to continue the use of an Unna boot to the left lower extremity, which will be re-applied twice weekly. She is to continue wearing graduated compression stockings in the right lower extremity, which does not demonstrate significant swelling, or significant skin changes. She has in her possession graduated compression stockings of 20 to 30 mmHg compression, which will be worn daily on the right lower extremity. The patient has been advised to lose weight, if possible. Given the chronic nature of the patient's venous disease, and her proclivity for developing venous stasis ulcerations, we have discussed the potential benefits of superficial venous ablation of superficial venous incompetence in her lower extremities. Recent prior venous duplex examination revealed competence of both the left great saphenous vein and small saphenous vein. This result is in question, and the patient indicates that she did not undergo testing in the standing or upright position. Therefore, we are to repeat the venous duplex examination today, and the results will be reviewed once available. The patient will return in 1 week for reassessment. Total time: 28 minutes
[2022-06-14 13:51] VITALS: BP 147/78; RESP 16; TEMP 36.1; BMI 39.6
[2022-06-18 09:02] VITALS: BP 142/54; PULSE 80; RESP 20; TEMP 35.9; BMI 39.6
--- NOTE | 2022-06-18 13:33 | HP.PCM_ITS ---
History of Present Illness Date of Service: 06/18/22 Chief Complaint: Venous stasis ulceration, left lower extremity History of Wound: This is a 72-year-old female who has had chronic recurring ulcerations in her lower extremities. These are due to chronic venous disease. The ulcerations have been associated with swelling. The swelling is said to be worse late in the day. She was last treated for an ulcer in her left lower extremity last year, last seen at the [facility] on April 02, 2022. At that time, it was deemed that her left lower extremity venous ulceration had healed, and she was discharged with instructions to continue conservative treatment measures, including leg elevation, avoidance of idle standing and sitting, weight control measures, active lifestyle, and the use of graduated compression stockings of 20 to 30 mmHg, worn daily. The patient is ambulatory and claims to be relatively active. She sleeps on a flat mattress at night. However, she typically spends long hours each day sitting. She denies a history of thrombophlebitis. She is obese, with a BMI of 39.7. Her left lower extremity ulceration was noted to occur spontaneously approximately 1 week prior to presentation. 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, right lower leg Venous stasis dermatitis of both lower extremities Venous stasis ulcer Home Medications Lisinopril/Hydrochlorothiazide [Zestoretic 20/12.5 Tablet] 2 tab PO DAILY bp 06/17/17 [History Last Taken 06/17/17] aspirin 81 mg chewable tablet 81 mg PO DAILY HEART HEALTH 06/17/17 [History Last Taken 06/17/17] cholecalciferol (vitamin D3) 25 mcg (1,000 unit) capsule (Vitamin D3) 1,000 unit PO DAILY SUPPLEMENT 06/17/17 [History Last Taken 06/17/17] cetirizine 10 mg tablet (Zyrtec) 10 mg PO DAILY ALLERGIES 06/18/17 [History Last Taken 06/17/17] pantoprazole 40 mg tablet,delayed release 40 mg PO DAILY #60 tabs 06/18/17 [Rx Last Taken Unknown] Allergy/AdvReac Type Severity Reaction Status Date / Time cephalexin [From Keflex] Allergy Hives Verified 06/17/17 22:11 Penicillins Allergy Hives Verified 06/17/17 22:11 Surgical History Status post appendectomy Social History Smoking Status: Never smoker Vital Signs Vital Signs Vital Signs: 06/18/22 09:02 Temperature 96.7 F L Temperature Source Temporal Pulse Rate 80 Respiratory Rate 20 H Blood Pressure 142/54 H Blood Pressure Mean 83 Blood Pressure Source Monitor Weight Weight: 210 lb Body Mass Index (BMI) 39.6 Physical Exam Const alert, oriented x3, no apparent distress and well nourished Constitutional Narrative: The patient is obese, with a BMI of 39.7. General Appearance: cooperative, comfortable, well kempt and well developed Orientation / Consciousness: awake, oriented to person, oriented to place and oriented to time HEENT normocephalic and head/scalp atraumatic Head and Scalp: normal to inspection, normocephalic and atraumatic External Ear: external ears normal Eyes PERRL and EOMs intact bilaterally General Eye: normal appearance of both eyes Resp normal respiratory effort, normal air movement, no retractions and no use of accessory muscles Effort and Inspection: able to speak in complete sentences Extremity no calf tenderness General Extremity: Negative for clubbing or cyanosis Skin Wound Narrative: Slight swelling and edema are noted of the patient's left lower extremity. A small, clustered, superficial ulceration is noted near the left lateral malleolus, which is nearly healed. There is no sign of infection or cellulitis. Dimensions are documented elsewhere. Diffuse venous stasis dermatitis is noted in this area. Lipodermatosclerosis and hyperpigmentation are noted in the gaiter areas bilaterally. Neuro oriented x3, CN's II-XII intact bilaterally, moves all extremities and no focal motor deficits Sensorium / Orientation: awake, alert, oriented to person, oriented to place and oriented to time Psych Appearance: grossly normal and appropriate Attitude: calm Activity / Motor Behavior: appropriate eye contact Speech: normal speech Mood & Affect: euthymic mood Thought Process: normal thought process Thought Content: normal thought content Attention / Concentration: attention grossly intact Debridement Note Debridement Note No debridement was completed: No debridement was completed today Post-Debridement Measurements and Additional Note: Post-Debridement Measurements/Treatment WC - Nurse 1 - General Ulcer Assessment Start: 05/28/22 07:46 Freq: Status: Active Protocol: LOCO Activity Type Activity Date Activity User E-sign Co-sign Detail Recorded Client Recorded Date Recorded By Document 05/28/22 08:21 AK [id number] 05/28/22 08:27 AK Document 06/04/22 08:44 ML [id number] 06/04/22 08:48 ML Document 06/07/22 13:33 ML [id number] 06/07/22 13:35 ML Document 06/11/22 08:46 DL [id number] 06/11/22 08:55 DL Document 06/14/22 13:51 ML [id number] 06/14/22 13:53 ML Document 06/18/22 09:02 DL [id number] 06/18/22 09:08 DL 05/28/22 06/04/22 06/07/22 08:21 08:44 13:33 WC - Today's Visit Information Type of service Initial Visit Follow-up Visit Nurse-only (Physician/TEST ANALYST Visit ) Arrival Mode Ambulatory Ambulatory Ambulatory Transfer Assistance None Patient Identification Verified (Name & Yes Yes Yes ) Patient Requires Transmission-Based No No No Precautions Safety Precautions NA NA Height and Weight Height 5 ft 1 in Weight 210 lb Weight in Pounds 210.0 lbs Weight Measurement Method Estimated by Patient Body Mass Index (BMI) 39.6 39.6 39.6 BMI Classification Obese Obese Obese BSA - [place] 1.93 Vital Signs Temperature (97.8 F-99.1 F) 96.1 F L 97.2 F L 97.0 F L Temperature Source Temporal Temporal Temporal Pulse Rate (60-100) 112 H 105 H 99 Pulse Location Monitor Monitor Respiratory Rate (12-18) 19 H 16 Respiratory rate source Observation Observation Blood Pressure (90/60-120/80) 123/55 H 130/82 H 137/79 H Blood Pressure Mean 77 98 98 Source Monitor Monitor Monitor Position Sitting Sitting Blood Pressure Location Left Arm Left Arm History Since Last Visit- (Skip if this is Patient's initial visit) Have you changed medications since your No No last visit? Any new allergies or adverse reactions No No Had a fall/change in ADL's that may No No increase risk of falls Signs or symptoms of abuse and/or No No neglect since last visit Have you been in the hospital since your No No last visit? Has dressing in place as prescribed No No Has compression in place as prescribed N/A Yes Has offloadiing in place as prescribed N/A N/A Experienced any changes in pain level or No No management Left Footwear Regular Shoe Regular Shoe Regular Shoe Right Footwear Regular Shoe Regular Shoe Regular Shoe Pain Scale: 0-10 Numeric Is Patient Pain Free? Yes Yes Yes 06/11/22 06/14/22 06/18/22 08:46 13:51 09:02 WC - Today's Visit Information Type of service Follow-up Visit Nurse-only Follow-up Visit (Physician/TEST ANALYST Visit (Physician/TEST ANALYST ) ) Arrival Mode Ambulatory Ambulatory Ambulatory Transfer Assistance None None Patient Identification Verified (Name & Yes Yes Yes ) Patient Requires Transmission-Based No No No Precautions Safety Precautions NA Height and Weight Height Weight Weight in Pounds Weight Measurement Method Body Mass Index (BMI) 39.6 39.6 39.6 BMI Classification Obese Obese Obese [facility] - [place] Vital Signs Temperature (97.8 F-99.1 F) 97.5 F L 97.0 F L 96.7 F L Temperature Source Temporal Temporal Temporal Pulse Rate (60-100) 97 80 Pulse Location Monitor Monitor Respiratory Rate (12-18) 20 H 16 20 H Respiratory rate source Observation Observation Observation Blood Pressure (90/60-120/80) 143/56 H 147/78 H 142/54 H Blood Pressure Mean 85 101 83 Source Monitor Monitor Monitor Position Sitting Blood Pressure Location Left Arm History Since Last Visit- (Skip if this is Patient's initial visit) Have you changed medications since your No No last visit? Any new allergies or adverse reactions No No Had a fall/change in ADL's that may No No increase risk of falls Signs or symptoms of abuse and/or No No neglect since last visit Have you been in the hospital since your No No last visit? Has dressing in place as prescribed Yes Yes Has compression in place as prescribed Yes Yes Has offloadiing in place as prescribed N/A N/A Experienced any changes in pain level or No No management Left Footwear Right Footwear Pain Scale: 0-10 Numeric Is Patient Pain Free? Yes Yes Yes WC - Nurse 1 - General Ulcer Measurement Start: 05/28/22 07:46 Freq: Status: Active Protocol: Activity Type Activity Date Activity User E-sign Co-sign Detail Recorded Client Recorded Date Recorded By Document 05/28/22 08:21 AK [id number] 05/28/22 08:27 AK Document 05/31/22 12:55 MT [id number] 05/31/22 12:55 MT Document 06/04/22 08:44 ML [id number] 06/04/22 08:48 ML Document 06/11/22 08:46 DL [id number] 06/11/22 08:55 DL Document 06/18/22 09:02 DL [id number] 06/18/22 09:08 DL 05/28/22 05/31/22 06/04/22 08:21 12:55 08:44 Wound Center Nurse 1 #2 L LE -Combined with other wound No -Current Size (cm) - Length 13.8 1.2 -Current Size (cm) - Width 17 1 -Current Size (cm) - Depth 0.1 0.1 -Total Square Cm 234.6 1.2 -Date of Last Picture (Recall this 05/28/22 field) -Photo Taken Yes -Tunneling No -Undermining/Tunneling No -Circular Undermining No -Change in Wound Grade/Stage No -Exudate Amt Large Medium -Exudate Type Serosanguineous Serosanguineous -Wound Margin Distinct, Distinct, Outline Outline Attached Attached -Granulation Amt None Present (0 Small (1-33%) %) -Granulation Quality N/A [place] -Slough/Fibrin Yes -Necrosis Amt Medium (34-66%) None Present (0 %) -Necrotic Tissue Type Adherent Slough -Structure Exposed N/A -Texture (Lety-wound Skin Appearance) Assessed, Assessed Excoriation -Moisture (Lety-wound Skin Appearance) Assessed, Assessed Weeping -Color (Lety-wound Skin Appearance) Assessed, Assessed Erythema -Temperature (Lety-wound Skin No Abnormality No Abnormality Appearance) (Pt Warm) (Pt Warm) -Tenderness on Palpation (Lety-wound Yes No Skin Appearance) -Ulcer Cleansing Soap and Water Soap and Water -Foul Odor after Cleansing No -Anesthetic Used 4% Lidocaine 5% Lidocaine Solution Gel Right Calf (cm) 31.5 Right Ankle (cm) 27 Left Calf (cm) 41.5 40.5 38 Left Ankle (cm) 28 28 28 06/11/22 06/18/22 08:46 09:02 Wound Center Nurse 1 #2 L LE -Combined with other wound -Current Size (cm) - Length 0.3 0.1 -Current Size (cm) - Width 0.3 0.1 -Current Size (cm) - Depth 0.1 0.1 -Total Square Cm 0.09 0.01 -Date of Last Picture (Recall this field) -Photo Taken No Yes -Tunneling -Undermining/Tunneling -Circular Undermining -Change in Wound Grade/Stage -Exudate Amt Small None Present -Exudate Type Sanguineous -Wound Margin Distinct, Indistinct, Non Outline -Visible Attached -Granulation Amt Large (67-100%) Large (67-100%) -Granulation Quality [place] -Slough/Fibrin -Necrosis Amt None Present (0 None Present (0 %) %) -Necrotic Tissue Type -Structure Exposed N/A N/A -Texture (Lety-wound Skin Appearance) Localized Edema Scarring,Rash ,Scarring -Moisture (Lety-wound Skin Appearance) Dry/Scaly -Color (Lety-wound Skin Appearance) Hemosiderin Hemosiderin Staining Staining -Temperature (Lety-wound Skin No Abnormality No Abnormality Appearance) (Pt Warm) (Pt Warm) -Tenderness on Palpation (Lety-wound No No Skin Appearance) -Ulcer Cleansing Soap and Water Not Cleansed -Foul Odor after Cleansing No No -Anesthetic Used 5% Lidocaine Gel Right Calf (cm) Right Ankle (cm) Left Calf (cm) 38.6 40 Left Ankle (cm) 26.8 27 WC - Nurse 2 - General Ulcer CM Notes Start: 05/28/22 07:46 Freq: Status: Active Protocol: Activity Type Activity Date Activity User E-sign Co-sign Detail Recorded Client Recorded Date Recorded By Document 05/28/22 08:40 MW [id number] 05/28/22 08:44 MW Document 06/04/22 08:56 MW [id number] 06/04/22 08:58 MW Document 06/11/22 08:58 MW [id number] 06/11/22 09:01 MW Document 06/18/22 09:23 MW [id number] 06/18/22 09:27 MW 05/28/22 06/04/22 06/11/22 08:40 08:56 08:58 Wound Center Nurse 2 #2 L LE -Time 08:40 08:57 08:59 -Correct Patient Yes Yes Yes -Correct Side, Site, Position Yes Yes Yes -Correct Procedure Yes Yes Yes -Procedure Performed No Yes No -Type of Procedure Debridement -Clinical Debridement Subcutaneous -Tissue Removed Subcutaneous -Post Debridement (cm) - Length 1.4 -Post Debridement (cm) - Width 1.2 -Post Debridement (cm) - Depth 0.1 -Total Square (Post) (cm) 1.68 -Area of Debridement (cm) - Length 1.4 -Area of Debridement (cm) - Width 1.2 -Total Square (Area) (cm) 1.68 -Tunneling No No No -Undermining/Tunneling No No No -Circular Undermining No No No -Wound/Ulcer Outcome Not Healed Not Healed Not Healed -Ulcer Cleansing Rinsed/ Rinsed/ Rinsed/ Irrigated with Irrigated with Irrigated with Saline Saline Saline -Foul Odor after Cleansing No No -Bioengineered Tissue No No -Bleeding Controlled with NA Pressure NA -Treatment Response Procedure Procedure Tolerated Well Tolerated Well -Offloading No No No -Debridement - Subq, 1st 20sq cm Yes Pain Scale: 0-10 Numeric Is Patient Pain Free? Yes Yes Yes 06/18/22 09:23 Wound Center Nurse 2 #2 L LE -Time 09:25 -Correct Patient Yes -Correct Side, Site, Position Yes -Correct Procedure Yes -Procedure Performed No -Type of Procedure -Clinical Debridement -Tissue Removed -Post Debridement (cm) - Length -Post Debridement (cm) - Width -Post Debridement (cm) - Depth -Total Square (Post) (cm) -Area of Debridement (cm) - Length -Area of Debridement (cm) - Width -Total Square (Area) (cm) -Tunneling No -Undermining/Tunneling No -Circular Undermining No -Wound/Ulcer Outcome Not Healed -Ulcer Cleansing Rinsed/ Irrigated with Saline -Foul Odor after Cleansing No -Bioengineered Tissue No -Bleeding Controlled with NA -Treatment Response Procedure Tolerated Well -Offloading No -Debridement - Subq, 1st 20sq cm Pain Scale: 0-10 Numeric Is Patient Pain Free? Yes WC - Nurse 3 - General Ulcer D/C NN Start: 05/28/22 07:46 Freq: Status: Active Protocol: Activity Type Activity Date Activity User E-sign Co-sign Detail Recorded Client Recorded Date Recorded By Document 05/28/22 09:07 DL [id number] 05/28/22 09:09 DL Document 05/31/22 12:53 MT [id number] 05/31/22 12:55 MT Document 06/04/22 08:59 ML [id number] 06/04/22 09:00 ML Document 06/07/22 13:33 ML [id number] 06/07/22 13:35 ML Document 06/12/22 07:16 PL [id number] 06/12/22 07:17 PL Document 06/14/22 13:51 ML [id number] 06/14/22 13:53 ML Document 06/18/22 09:42 AK [id number] 06/18/22 09:43 AK 05/28/22 05/31/22 06/04/22 09:07 12:53 08:59 Wound Care Center Nurse 3 #2 L LE -Ulcer Cleansing Rinsed/ Soap and Water Irrigated with Saline -Foul Odor after Cleansing No -Negative Pressure Wound Therapy -Other Dressing unna -Primary Dressing Covered/Secured with Dry Gauze & Roll Gauze, Secured with Tape Left -Lotion applied to leg before compression wrap -Multi-Layered Wrap Application Unna Boot - Unna Boot - Unna Boot - Left ($) Left ($) Left ($) Treatment Response Procedure Tolerated Well Vital Signs Temperature (97.8 F-99.1 F) 97 F L Temperature Source Temporal Pulse Rate (60-100) 101 H Pulse Location Monitor Respiratory Rate (12-18) 18 Respiratory rate source Observation Oxygen Delivery Method Room Air Blood Pressure (90/60-120/80) 151/67 H Blood Pressure Mean 95 Source Monitor Position Sitting Blood Pressure Location Right Arm Pain Scale: 0-10 Numeric Is Patient Pain Free? Yes Yes Yes WC - Visit Discharge Discharge Condition Stable Stable Ambulatory Status Ambulatory Ambulatory Transportation Private Auto Private Auto Medication Reconcilliation completed & No provided to patient/care provider Clinical Summary of Care Provided Yes 06/07/22 06/12/22 06/14/22 13:33 07:16 13:51 Wound Care Center Nurse 3 #2 L LE -Ulcer Cleansing Soap and Water -Foul Odor after Cleansing -Negative Pressure Wound Therapy -Other Dressing -Primary Dressing Covered/Secured with Left -Lotion applied to leg before compression wrap -Multi-Layered Wrap Application Unna Boot - Unna Boot - Unna Boot - Left ($) Left ($) Left ($) Treatment Response Vital Signs Temperature (97.8 F-99.1 F) 97.0 F L 97.0 F L Temperature Source Temporal Temporal Pulse Rate (60-100) 99 Pulse Location Monitor Respiratory Rate (12-18) 16 16 Respiratory rate source Observation Observation Oxygen Delivery Method Blood Pressure (90/60-120/80) 137/79 H 147/78 H Blood Pressure Mean 98 101 Source Monitor Monitor Position Sitting Sitting Blood Pressure Location Left Arm Left Arm Pain Scale: 0-10 Numeric Is Patient Pain Free? Yes Yes Yes WC - Visit Discharge Discharge Condition Ambulatory Status Transportation Medication Reconcilliation completed & provided to patient/care provider Clinical Summary of Care Provided 06/18/22 09:42 Wound Care Center Nurse 3 #2 L LE -Ulcer Cleansing Not Cleansed -Foul Odor after Cleansing No -Negative Pressure Wound Therapy N/A -Other Dressing -Primary Dressing Covered/Secured with Left -Lotion applied to leg before No compression wrap -Multi-Layered Wrap Application Unna Boot - Left ($) Treatment Response Vital Signs Temperature (97.8 F-99.1 F) Temperature Source Pulse Rate (60-100) Pulse Location Respiratory Rate (12-18) Respiratory rate source Oxygen Delivery Method Blood Pressure (90/60-120/80) Blood Pressure Mean Source Position Blood Pressure Location Pain Scale: 0-10 Numeric Is Patient Pain Free? Yes WC - Visit Discharge Discharge Condition Stable Ambulatory Status Ambulatory Transportation Private Auto Medication Reconcilliation completed & Yes provided to patient/care provider Clinical Summary of Care Provided Yes Assessment/Plan Assessment/Plan (1) Venous stasis ulcer: CODE(S): I83.009 - Varicose veins of unspecified lower extremity with ulcer of unspecified site; L97.909 - Non-pressure chronic ulcer of unspecified part of unspecified lower leg with unspecified severity QUALIFIERS: Venous stasis ulcer site: calf Varicose vein presence: with varicose veins Laterality: left Non-pressure ulcer stage: with fat layer exposed Qualified Code(s): I83.022 - Varicose veins of left lower extremity with ulcer of calf; L97.222 - Non-pressure chronic ulcer of left calf with fat layer exposed (2) Chronic venous hypertension w/ulcer and inflammation involv left side: CODE(S): I87.332 - Chronic venous hypertension (idiopathic) with ulcer and inflammation of left lower extremity; L97.929 - Non-pressure chronic ulcer of unspecified part of left lower leg with unspecified severity (3) Venous stasis dermatitis of both lower extremities: CODE(S): I87.2 - Venous insufficiency (chronic) (peripheral) (4) Chronic venous insufficiency: CODE(S): I87.2 - Venous insufficiency (chronic) (peripheral) (5) Hypertension: CODE(S): I10 - Essential (primary) hypertension (6) History of poliomyelitis: CODE(S): Z86.12 - Personal history of poliomyelitis (7) History of TIA (transient ischemic attack): CODE(S): Z86.73 - Personal history of transient ischemic attack (TIA), and cerebral infarction without residual deficits (8) Autoimmune hemolytic anemia: (9) Cerebrovascular disease: CODE(S): I67.9 - Cerebrovascular disease, unspecified (10) Chronic kidney disease, stage III (moderate): CODE(S): N18.30 - Chronic kidney disease, stage 3 unspecified (11) 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 She has experienced venous ulcerations in her lower extremities in the past. Previous measures have included conservative treatment measures, including leg elevation, avoidance of idle standing and sitting, graduated compression stockings, weight control measures, active lifestyle, etc. These measures have previously resulted in successful healing of the patient's ulcerations. However, her ulcerations have been recurrent, requiring repeated and lengthy medical management. In addition to the clustered ulceration, the patient is noted to have severe venous stasis changes in the left lower extremity, with lipodermatosclerosis and hyperpigmentation in the gaiter area. It has been recommended that the patient continue a protocol of conservative treatment measures. These measures have been discussed with patient in detail. The patient is to continue sleeping on a flat mattress at night. She has been encouraged to elevate her lower extremities is much as possible, even during daytime hours. As described to the patient, elevation is to be to heart level, or higher. This is to be implemented as much as possible each day. Prolonged idle sitting has been discouraged. Activity has been encouraged. We are to continue the use of an Unna boot to the left lower extremity, which will be re- applied twice weekly. She is to continue wearing graduated compression stockings in the right lower extremity, which does not demonstrate significant swelling, or significant skin changes. She has in her possession graduated compression stockings of 20 to 30 mmHg compression, which will be worn daily on the right lower extremity. The patient has been advised to lose weight, if possible. Given the chronic nature of the patient's venous disease, and her proclivity for developing venous stasis ulcerations, we have again discussed the potential benefits of superficial venous ablation of superficial venous incompetence in her lower extremities. Recent venous duplex examination revealed incompetence of the left great saphenous vein, the left small saphenous vein, and 2 incompetent accessory saphenous veins. The indications and risks of endovenous laser ablation of these incompetent superficial veins in the left lower extremity have been thoroughly explained. The expectations of endothermal ablation have also been discussed. The patient has indicated her desire to proceed. Preauthorization for the procedure will be requested. The patient is to continue with compression to the lower extremities bilaterally, as well as other conservative measures as outlined above. An Unna boot will be applied to the left lower extremity, and changed twice weekly. The patient will return in 2 weeks for reassessment. Total time: 29 minutes
== END 2022-06-18 23:59 | disposition home or self-care (01) ==
LOC: WC 08:45
PROVIDERS: PCP Internal Medicine; Visit Provider Surgery
DX: I83.022 Varicose veins of left lower extremity with ulcer of calf (principal); D59.10 Autoimmune hemolytic anemia, unspecified; L97.912 Non-pressure chronic ulcer of unspecified part of right lower leg with fat layer exposed; L97.222 Non-pressure chronic ulcer of left calf with fat layer exposed; I87.332 Chronic venous hypertension (idiopathic) with ulcer and inflammation of left lower extremity; N18.30 Chronic kidney disease, stage 3 unspecified; I87.2 Venous insufficiency (chronic) (peripheral); Z90.89 Acquired absence of other organs; I12.9 Hypertensive chronic kidney disease with stage 1 through stage 4 chronic kidney disease, or unspecified chronic kidney disease; I83.92 Asymptomatic varicose veins of left lower extremity; Z79.82 Long term (current) use of aspirin
CPT/HCPCS: 11042; 29580; 93970; 99213; G0463

== ENCOUNTER 2022-07-16 08:45 | Outpatient (RCR) | payer MEDICARE, BC, SELFPAY ==
[2022-06-19 00:33] VITALS: BP 142/54; PULSE 80; RESP 20; TEMP 35.9; BMI 39.6
[2022-06-21 13:14] VITALS: BP 151/76; PULSE 91; RESP 18; TEMP 36.1; BMI 39.6
[2022-06-25 13:03] VITALS: BP 149/77; PULSE 106; RESP 20; TEMP 36.3; BMI 39.6
[2022-06-28 13:38] VITALS: BP 140/59; PULSE 85; RESP 18; TEMP 36.2; BMI 39.6
[2022-07-02 09:00] VITALS: BP 145/67; PULSE 87; RESP 16; TEMP 35.5; BMI 39.6
--- NOTE | 2022-07-02 12:42 | PCM.WC.HP ---
History of Present Illness Date of Service: 07/02/22 Chief Complaint: Venous stasis ulceration, left lower extremity History of Wound: This is a 72-year-old female who has had chronic recurring ulcerations in her lower extremities. These are due to chronic venous disease. The ulcerations have been associated with swelling. The swelling is said to be worse late in the day. She was last treated for an ulcer in her left lower extremity last year, last seen at the [facility] on April 02, 2022. At that time, it was deemed that her left lower extremity venous ulceration had healed, and she was discharged with instructions to continue conservative treatment measures, including leg elevation, avoidance of idle standing and sitting, weight control measures, active lifestyle, and the use of graduated compression stockings of 20 to 30 mmHg, worn daily. The patient is ambulatory and claims to be relatively active. She sleeps on a flat mattress at night. However, she typically spends long hours each day sitting. She denies a history of thrombophlebitis. She is obese, with a BMI of 39.7. Her left lower extremity ulceration was noted to occur spontaneously approximately 1 week prior to presentation. 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, right lower leg Venous stasis dermatitis of both lower extremities Venous stasis ulcer Home Medications Lisinopril/Hydrochlorothiazide [Zestoretic 20/12.5 Tablet] 2 tab PO DAILY bp 06/17/17 [History Last Taken 06/17/17] aspirin 81 mg chewable tablet 81 mg PO DAILY HEART HEALTH 06/17/17 [History Last Taken 06/17/17] cholecalciferol (vitamin D3) 25 mcg (1,000 unit) capsule (Vitamin D3) 1,000 unit PO DAILY SUPPLEMENT 06/17/17 [History Last Taken 06/17/17] cetirizine 10 mg tablet (Zyrtec) 10 mg PO DAILY ALLERGIES 06/18/17 [History Last Taken 06/17/17] pantoprazole 40 mg tablet,delayed release 40 mg PO DAILY #60 tabs 06/18/17 [Rx Last Taken Unknown] Allergy/AdvReac Type Severity Reaction Status Date / Time cephalexin [From Keflex] Allergy Hives Verified 06/17/17 22:11 Penicillins Allergy Hives Verified 06/17/17 22:11 Surgical History Status post appendectomy Social History Smoking Status: Never smoker Vital Signs Vital Signs Vital Signs: 07/02/22 09:00 Temperature 95.9 F L Temperature Source Temporal Pulse Rate 87 Respiratory Rate 16 Blood Pressure 145/67 H Blood Pressure Mean 93 Blood Pressure Source Monitor Blood Pressure Position Sitting Blood Pressure Location Left Arm Oxygen Delivery Method Room Air Weight Weight: 210 lb Body Mass Index (BMI) 39.6 Physical Exam Const alert, oriented x3, no apparent distress and well nourished Constitutional Narrative: The patient is obese, with a BMI of 39.7. General Appearance: cooperative, comfortable, well kempt and well developed Orientation / Consciousness: awake, oriented to person, oriented to place and oriented to time HEENT normocephalic and head/scalp atraumatic Head and Scalp: normal to inspection, normocephalic and atraumatic External Ear: external ears normal Eyes PERRL and EOMs intact bilaterally General Eye: normal appearance of both eyes Resp normal respiratory effort, normal air movement, no retractions and no use of accessory muscles Effort and Inspection: able to speak in complete sentences Extremity no calf tenderness General Extremity: Negative for clubbing or cyanosis Skin Wound Narrative: Slight swelling and edema are noted of the patient's left lower extremity. Only a small open ulceration is noted on the left pretibial surface. All other ulcerations appear to be healed and epithelialized. There is no sign of infection or cellulitis. Dimensions are documented elsewhere. Diffuse venous stasis dermatitis is noted in the left gaiter area. Lipodermatosclerosis and hyperpigmentation are noted in the gaiter areas bilaterally. Neuro oriented x3, CN's II-XII intact bilaterally, moves all extremities and no focal motor deficits Sensorium / Orientation: awake, alert, oriented to person, oriented to place and oriented to time Psych Appearance: grossly normal and appropriate Attitude: calm Activity / Motor Behavior: appropriate eye contact Speech: normal speech Mood & Affect: euthymic mood Thought Process: normal thought process Thought Content: normal thought content Attention / Concentration: attention grossly intact Debridement Note Debridement Note No debridement was completed: No debridement was completed today Post-Debridement Measurements and Additional Note: Post-Debridement Measurements/Treatment WC - Nurse 1 - General Ulcer Assessment Start: 06/21/22 13:13 Freq: Status: Active Protocol: [email or web address].[email or web address] Activity Type Activity Date Activity User E-sign Co-sign Detail Recorded Client Recorded Date Recorded By Document 06/21/22 13:14 RB [id number] 06/21/22 13:15 RB Document 06/25/22 13:03 DL [id number] 06/25/22 13:08 DL Document 06/28/22 13:38 RB [id number] 06/28/22 13:40 RB Document 07/02/22 09:00 MW [id number] 07/02/22 09:01 MW 06/21/22 06/25/22 06/28/22 13:14 13:03 13:38 - Today's Visit Information Type of service Nurse-only Nurse-only Nurse-only Visit Visit Visit Arrival Mode Ambulatory Ambulatory Ambulatory Transfer Assistance None None None Accompanied by Patient Identification Verified (Name & Yes Yes Yes ) Patient Requires Transmission-Based No No No Precautions Safety Precautions Height and Weight Body Mass Index (BMI) 39.6 39.6 39.6 BMI Classification Obese Obese Obese Vital Signs Temperature (97.8 F-99.1 F) 97 F L 97.3 F L 97.2 F L Temperature Source Temporal Temporal Temporal Pulse Rate (60-100) 91 106 H 85 Pulse Location Monitor Monitor Monitor Respiratory Rate (12-18) 18 20 H 18 Respiratory rate source Observation Observation Observation Oxygen Delivery Method Blood Pressure (90/60-120/80) 151/76 H 149/77 H 140/59 H Blood Pressure Mean 101 101 86 Source Monitor Monitor Monitor Position Sitting Semi-Fowlers Blood Pressure Location Left Arm Left Arm History Since Last Visit- (Skip if this is Patient's initial visit) Have you changed medications since your No No No last visit? Any new allergies or adverse reactions No No No Had a fall/change in ADL's that may No No No increase risk of falls Signs or symptoms of abuse and/or No No No neglect since last visit Have you been in the hospital since your No No No last visit? Has dressing in place as prescribed Yes Yes Yes Has compression in place as prescribed Yes Yes Yes Has offloadiing in place as prescribed No N/A No Experienced any changes in pain level or No No No management Left Footwear Right Footwear Pain Scale: 0-10 Numeric Is Patient Pain Free? Yes Yes Yes 07/02/22 09:00 WC - Today's Visit Information Type of service Follow-up Visit (Physician/DIRECTOR SPEECH ) Arrival Mode Ambulatory Transfer Assistance None Accompanied by self Patient Identification Verified (Name & Yes ) Patient Requires Transmission-Based No Precautions Safety Precautions NA Height and Weight Body Mass Index (BMI) 39.6 BMI Classification Obese Vital Signs Temperature (97.8 F-99.1 F) 95.9 F L Temperature Source Temporal Pulse Rate (60-100) 87 Pulse Location Monitor Respiratory Rate (12-18) 16 Respiratory rate source Observation Oxygen Delivery Method Room Air Blood Pressure (90/60-120/80) 145/67 H Blood Pressure Mean 93 Source Monitor Position Sitting Blood Pressure Location Left Arm History Since Last Visit- (Skip if this is Patient's initial visit) Have you changed medications since your No last visit? Any new allergies or adverse reactions No Had a fall/change in ADL's that may No increase risk of falls Signs or symptoms of abuse and/or No neglect since last visit Have you been in the hospital since your No last visit? Has dressing in place as prescribed No Has compression in place as prescribed Yes Has offloadiing in place as prescribed N/A Experienced any changes in pain level or No management Left Footwear Regular Shoe Right Footwear Regular Shoe Pain Scale: 0-10 Numeric Is Patient Pain Free? Yes - Nurse 1 - General Ulcer Measurement Start: 06/21/22 13:13 Freq: Status: Active Protocol: Activity Type Activity Date Activity User E-sign Co-sign Detail Recorded Client Recorded Date Recorded By Document 06/25/22 13:03 DL [id number] 06/25/22 13:08 DL Document 06/28/22 13:38 RB [id number] 06/28/22 13:40 RB Document 07/02/22 09:00 MW [id number] 07/02/22 09:01 MW 06/25/22 06/28/22 07/02/22 13:03 13:38 09:00 Wound Center Nurse 1 #2 L LE -Combined with other wound No -Current Size (cm) - Length 0.1 -Current Size (cm) - Width 0.1 -Current Size (cm) - Depth 0.1 -Total Square Cm 0.01 -Date of Last Picture (Recall this 07/02/22 field) -Photo Taken Yes -Epithelialization None Present -Tunneling No -Undermining/Tunneling No -Circular Undermining No -Exudate Amt None Present None Present -Wound Margin Indistinct, Non -Visible -Granulation Amt None Present (0 %) -Granulation Quality N/A -Slough/Fibrin No -Necrosis Amt None Present (0 %) -Structure Exposed N/A -Texture (Lety-wound Skin Appearance) Excoriation, Assessed, Rash Localized Edema -Moisture (Lety-wound Skin Appearance) No Abnormality No Abnormality, Assessed -Color (Elty-wound Skin Appearance) No Abnormality Assessed, Hemosiderin Staining -Temperature (Lety-wound Skin No Abnormality No Abnormality Appearance) (Pt Warm) (Pt Warm) -Tenderness on Palpation (Lety-wound No No Skin Appearance) -Ulcer Cleansing Soap and Water -Foul Odor after Cleansing No No -Anesthetic Used 5% Lidocaine Gel -Wound Comment(s) Pt removed Unna boot to shower this morning before appt. Lower Limb Edema Present Yes Yes Left Calf (cm) 39.2 40 39.5 Left Ankle (cm) 27 28 27.5 WC - Nurse 3 - General Ulcer D/C NN Start: 06/21/22 13:13 Freq: Status: Active Protocol: Activity Type Activity Date Activity User E-sign Co-sign Detail Recorded Client Recorded Date Recorded By Document 06/21/22 13:14 RB [id number] 06/21/22 13:15 RB Document 06/25/22 13:03 DL [id number] 06/25/22 13:08 DL Document 06/28/22 13:38 RB [id number] 06/28/22 13:40 RB Document 07/02/22 09:35 MW [id number] 07/02/22 09:36 MW 06/21/22 06/25/22 06/28/22 13:14 13:03 13:38 Vital Signs Temperature (97.8 F-99.1 F) 97 F L 97.3 F L 97.2 F L Temperature Source Temporal Temporal Temporal Pulse Rate (60-100) 91 106 H 85 Pulse Location Monitor Monitor Monitor Respiratory Rate (12-18) 18 20 H 18 Respiratory rate source Observation Observation Observation Blood Pressure (90/60-120/80) 151/76 H 149/77 H 140/59 H Blood Pressure Mean 101 101 86 Source Monitor Monitor Monitor Position Sitting Semi-Fowlers Blood Pressure Location Left Arm Left Arm Pain Scale: 0-10 Numeric Is Patient Pain Free? Yes Yes Yes Teaching: Wound Center Compression Wraps & Stockings -Person Taught -Teaching Method -Response to teaching Dressing Your Wound -Person Taught -Teaching Method -Response to teaching Wound Care Center Nurse 3 #2 L LE -Ulcer Cleansing Wound Cleanser Not Cleansed Wound Cleanser -Foul Odor after Cleansing No -Negative Pressure Wound Therapy -Primary Dressing Applied -Other Dressing unna boot -Mepilex Border Left -Lotion applied to leg before compression wrap -Multi-Layered Wrap Application Unna Boot - Unna Boot - Unna Boot - Left ($) Left ($) Left ($) -Tubular Bandage -Size of Tubigrip Used -Size D ($) Treatment Response Procedure Procedure Procedure Tolerated Well Tolerated Well Tolerated Well WC - Visit Discharge Discharge Condition Stable Stable Stable Ambulatory Status Ambulatory Ambulatory Ambulatory Transportation Private Auto Private Auto Private Auto Accompanied by Medication Reconcilliation completed & No No provided to patient/care provider Clinical Summary of Care Provided Yes Yes 07/02/22 09:35 Vital Signs Temperature (97.8 F-99.1 F) Temperature Source Pulse Rate (60-100) Pulse Location Respiratory Rate (12-18) Respiratory rate source Blood Pressure (90/60-120/80) Blood Pressure Mean Source Position Blood Pressure Location Pain Scale: 0-10 Numeric Is Patient Pain Free? Yes Teaching: Wound Center Compression Wraps & Stockings -Person Taught Patient -Teaching Method Discussion -Response to teaching Verbalize understanding Dressing Your Wound -Person Taught Patient -Teaching Method Discussion, Demonstration -Response to teaching Verbalize understanding Wound Care Center Nurse 3 #2 L LE -Ulcer Cleansing Rinsed/ Irrigated with Saline -Foul Odor after Cleansing -Negative Pressure Wound Therapy N/A -Primary Dressing Applied C Hydrogel ($), Mepilex Border -Other Dressing -Mepilex Border 2 Left -Lotion applied to leg before No compression wrap -Multi-Layered Wrap Application -Tubular Bandage Single Layer -Size of Tubigrip Used Size D -Size D ($) 1 Treatment Response Procedure Tolerated Well WC - Visit Discharge Discharge Condition Stable Ambulatory Status Ambulatory Transportation Private Auto Accompanied by self Medication Reconcilliation completed & No provided to patient/care provider Clinical Summary of Care Provided No Assessment/Plan Assessment/Plan (1) Venous stasis ulcer: CODE(S): I83.009 - Varicose veins of unspecified lower extremity with ulcer of unspecified site; L97.909 - Non-pressure chronic ulcer of unspecified part of unspecified lower leg with unspecified severity QUALIFIERS: Venous stasis ulcer site: calf Varicose vein presence: with varicose veins Laterality: left Non-pressure ulcer stage: with fat layer exposed Qualified Code(s): I83.022 - Varicose veins of left lower extremity with ulcer of calf; L97.222 - Non-pressure chronic ulcer of left calf with fat layer exposed (2) Chronic venous hypertension w/ulcer and inflammation involv left side: CODE(S): I87.332 - Chronic venous hypertension (idiopathic) with ulcer and inflammation of left lower extremity; L97.929 - Non-pressure chronic ulcer of unspecified part of left lower leg with unspecified severity (3) Venous stasis dermatitis of both lower extremities: CODE(S): I87.2 - Venous insufficiency (chronic) (peripheral) (4) Chronic venous insufficiency: CODE(S): I87.2 - Venous insufficiency (chronic) (peripheral) (5) Hypertension: CODE(S): I10 - Essential (primary) hypertension (6) History of poliomyelitis: CODE(S): Z86.12 - Personal history of poliomyelitis (7) History of TIA (transient ischemic attack): CODE(S): Z86.73 - Personal history of transient ischemic attack (TIA), and cerebral infarction without residual deficits (8) Autoimmune hemolytic anemia: (9) Cerebrovascular disease: CODE(S): I67.9 - Cerebrovascular disease, unspecified (10) Chronic kidney disease, stage III (moderate): CODE(S): N18.30 - Chronic kidney disease, stage 3 unspecified (11) 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 She has experienced venous ulcerations in her lower extremities in the past. Previous measures have included conservative treatment measures, including leg elevation, avoidance of idle standing and sitting, graduated compression stockings, weight control measures, active lifestyle, etc. These measures have previously resulted in successful healing of the patient's ulcerations. However, her ulcerations have been recurrent, requiring repeated and lengthy medical management. The patient is noted to have severe venous stasis changes in the left lower extremity, with lipodermatosclerosis and hyperpigmentation in the gaiter area. It has been recommended that the patient continue a protocol of conservative treatment measures. These measures have been discussed with patient in detail. The patient is to continue sleeping on a flat mattress at night. She has been encouraged to elevate her lower extremities is much as possible, even during daytime hours. As described to the patient, elevation is to be to heart level, or higher. This is to be implemented as much as possible each day. Prolonged idle sitting has been discouraged. Activity has been encouraged. We are to implement the use of collagen hydrogel topically to the very small ulceration on the left pretibial surface. This is to be covered by an occlusive dressing. The patient is to use her graduated compression stockings to the lower extremities on a daily basis. These are of 20 to 30 mmHg compression. The patient has been advised to lose weight, if possible. Given the chronic nature of the patient's venous disease, and her proclivity for developing venous stasis ulcerations, we have again discussed the potential benefits of superficial venous ablation of superficial venous incompetence in her lower extremities. Recent venous duplex examination revealed incompetence of the left great saphenous vein, the left small saphenous vein, and 2 incompetent accessory saphenous veins. The indications and risks of endovenous laser ablation of these incompetent superficial veins in the left lower extremity have been thoroughly explained. The expectations of endothermal ablation have also been discussed. The patient has indicated her desire to proceed. Preauthorization for the procedure is underway. The patient is to continue with compression to the lower extremities bilaterally, as well as other conservative measures as outlined above. The patient will return in 2 weeks for reassessment. Total time: 26 minutes
[2022-07-16 08:46] VITALS: BP 139/57; PULSE 88; RESP 22; TEMP 36.2; BMI 39.6
== END 2022-07-19 23:59 | disposition home or self-care (01) ==
LOC: WC 08:45
PROVIDERS: PCP Internal Medicine; Visit Provider Surgery
DX: I83.022 Varicose veins of left lower extremity with ulcer of calf (principal); D59.10 Autoimmune hemolytic anemia, unspecified; L97.222 Non-pressure chronic ulcer of left calf with fat layer exposed; M89.661 Osteopathy after poliomyelitis, right lower leg; N18.30 Chronic kidney disease, stage 3 unspecified; I87.2 Venous insufficiency (chronic) (peripheral); Z79.82 Long term (current) use of aspirin; I12.9 Hypertensive chronic kidney disease with stage 1 through stage 4 chronic kidney disease, or unspecified chronic kidney disease; Z90.89 Acquired absence of other organs; Z86.12 Personal history of poliomyelitis; Z86.73 Personal history of transient ischemic attack (TIA), and cerebral infarction without residual deficits; B91 Sequelae of poliomyelitis; Z90.49 Acquired absence of other specified parts of digestive tract
CPT/HCPCS: 29580; 99213; G0463

== ENCOUNTER → 2022-08-05 | Outpatient (CLI) | payer MEDICARE, BC, SELFPAY | END | disposition home or self-care (01) | LOC: CVS 13:46 | PROVIDERS: PCP Internal Medicine; Referring Provider Surgery; Visit Provider Surgery | DX: I87.332 Chronic venous hypertension (idiopathic) with ulcer and inflammation of left lower extremity (principal); L97.929 Non-pressure chronic ulcer of unspecified part of left lower leg with unspecified severity ==

== ENCOUNTER 2022-08-06 08:44 | Day surgery (SDC) | payer MEDICARE, BC, SELFPAY ==
--- NOTE | 2022-07-30 13:33 | HP.PCM_ITS ---
History of Present Illness Date of Service: 07/30/22 Chief Complaint: Venous stasis ulceration, chronic venous insufficiency, v aricose veins with inflammation and ulceration, venous hypertension with inflammation and ulceration, venous stasis dermatitis - Left lower extremity History of Wound: This is a 72-year-old female who has had chronic recurring ulcerations in her lower extremities. These are due to chronic venous disease. The ulcerations have been associated with swelling. The swelling is said to be worse late in the day. She was last treated for an ulcer in her left lower extremity last year, last seen at the [facility] on April 02, 2022. At that time, it was deemed that her left lower extremity venous ulceration had healed, and she was discharged with instructions to continue conservative treatment measures, including leg elevation, avoidance of idle standing and sitting, weight control measures, active lifestyle, and the use of graduated compression stockings of 20 to 30 mmHg, worn daily. The patient is ambulatory and claims to be relatively active. She sleeps on a flat mattress at night. However, she typically spends long hours each day sitting. She denies a history of thrombophlebitis. She is obese, with a BMI of 39.7. Her left lower extremity ulceration was noted to occur spontaneously approximately 1 week prior to presentation. 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, right lower leg Shortness of breath on exertion Stroke/cerebrovascular accident Venous stasis dermatitis of both lower extremities Venous stasis ulcer Wears dentures Wears glasses Home Medications Lisinopril/Hydrochlorothiazide [Zestoretic 20/12.5 Tablet] 2 tab PO DAILY bp 06/17/17 [History Last Taken 06/17/17] aspirin 81 mg chewable tablet 81 mg PO DAILY HEART HEALTH 06/17/17 [History Last Taken 06/17/17] cholecalciferol (vitamin D3) 25 mcg (1,000 unit) capsule (Vitamin D3) 1,000 unit PO DAILY SUPPLEMENT 06/17/17 [History Last Taken 06/17/17] cetirizine 10 mg tablet (Zyrtec) 10 mg PO DAILY ALLERGIES 06/18/17 [History Last Taken 06/17/17] Allergy/AdvReac Type Severity Reaction Status Date / Time cephalexin [From Keflex] Allergy Hives Verified 07/30/22 08:50 Penicillins Allergy Hives Verified 07/30/22 08:50 Surgical History History of 3 sections Status post appendectomy Social History Smoking Status: Never smoker Physical Exam Const alert, oriented x3, no apparent distress and well nourished Constitutional Narrative: The patient is obese, with a BMI of 39.7. General Appearance: cooperative, comfortable, well kempt and well developed Orientation / Consciousness: awake, oriented to person, oriented to place and oriented to time HEENT normocephalic and head/scalp atraumatic Head and Scalp: normal to inspection, normocephalic and atraumatic External Ear: external ears normal Eyes PERRL and EOMs intact bilaterally General Eye: normal appearance of both eyes Resp normal respiratory effort, normal air movement, no retractions and no use of accessory muscles Effort and Inspection: able to speak in complete sentences Extremity no calf tenderness General Extremity: Negative for clubbing or cyanosis Skin Wound Narrative: Slight swelling and edema are noted of the patient's left lower extremity. Scattered small excoriations are noted in the left gaiter area, with a very small ulceration on the left pretibial area. There is no sign of infection or cellulitis. Diffuse venous stasis dermatitis is noted in the left gaiter area. Lipodermatosclerosis and hyperpigmentation are noted in the gaiter areas bilaterally. Neuro oriented x3, CN's II-XII intact bilaterally, moves all extremities and no focal motor deficits Sensorium / Orientation: awake, alert, oriented to person, oriented to place and oriented to time Psych Appearance: grossly normal and appropriate Attitude: calm Activity / Motor Behavior: appropriate eye contact Speech: normal speech Mood & Affect: euthymic mood Thought Process: normal thought process Thought Content: normal thought content Attention / Concentration: attention grossly intact Debridement Note Debridement Note Wound debrided: Left pretibial ulceration Laterality: Left Type of Debridement: Excisional debridement Anesthesia Used: 5% Lidocaine Gel Depth: Down to and including healthy tissue and in the subcutaneous layer Percentage of wound debrided: 100 Instrument Used: 3mm curette Tissue Removed: Bioburden Severity: Fat Layer Exposed Amount of bleeding with debridement: Mild Bleeding Controlled with: Compression and gauze Patient tolerated procedure: Patient tolerated procedure well Assessment/Plan Assessment/Plan (1) Venous stasis ulcer: CODE(S): I83.009 - Varicose veins of unspecified lower extremity with ulcer of unspecified site; L97.909 - Non-pressure chronic ulcer of unspecified part of unspecified lower leg with unspecified severity QUALIFIERS: Venous stasis ulcer site: calf Varicose vein presence: with varicose veins Laterality: left Non-pressure ulcer stage: with fat layer exposed Qualified Code(s): I83.022 - Varicose veins of left lower extremity with ulcer of calf; L97.222 - Non-pressure chronic ulcer of left calf with fat layer exposed (2) Chronic venous hypertension w/ulcer and inflammation involv left side: CODE(S): I87.332 - Chronic venous hypertension (idiopathic) with ulcer and inflammation of left lower extremity; L97.929 - Non-pressure chronic ulcer of unspecified part of left lower leg with unspecified severity (3) Venous stasis dermatitis of both lower extremities: CODE(S): I87.2 - Venous insufficiency (chronic) (peripheral) (4) Chronic venous insufficiency: CODE(S): I87.2 - Venous insufficiency (chronic) (peripheral) (5) Hypertension: CODE(S): I10 - Essential (primary) hypertension (6) History of poliomyelitis: CODE(S): Z86.12 - Personal history of poliomyelitis (7) History of TIA (transient ischemic attack): CODE(S): Z86.73 - Personal history of transient ischemic attack (TIA), and cerebral infarction without residual deficits (8) Autoimmune hemolytic anemia: (9) Cerebrovascular disease: CODE(S): I67.9 - Cerebrovascular disease, unspecified (10) Chronic kidney disease, stage III (moderate): CODE(S): N18.30 - Chronic kidney disease, stage 3 unspecified (11) 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 She has experienced venous ulcerations in her lower extremities in the past. Previous measures have included conservative treatment measures, including leg elevation, avoidance of idle standing and sitting, graduated compression stockings, weight control measures, active lifestyle, etc. These measures have previously resulted in successful healing of the patient's ulcerations. However, her ulcerations have been recurrent, requiring repeated and lengthy medical management. The patient is noted to have severe venous stasis changes in the left lower extremity, with lipodermatosclerosis and hyperpigmentation in the gaiter area. It has been recommended that the patient continue a protocol of conservative treatment measures. These measures have been discussed with patient in detail. The patient is to continue sleeping on a flat mattress at night. She has been encouraged to elevate her lower extremities is much as possible, even during daytime hours. As described to the patient, elevation is to be to heart level, or higher. This is to be implemented as much as possible each day. Prolonged idle sitting has been discouraged. Activity has been encouraged. We are to implement the use of an Unna boot to the left lower extremity, which will be changed twice weekly. The patient is to use her graduated compression stockings to the right lower extremity on a daily basis. These are of 20 to 30 mmHg compression. The patient has been advised to lose weight, if possible. Given the chronic nature of the patient's venous disease, and her proclivity for developing venous stasis ulcerations, we have again discussed the potential benefits of superficial venous ablation of superficial venous incompetence in her lower extremities. Recent venous duplex examination revealed incompetence of the left great saphenous vein, the left small saphenous vein, and 2 incompetent accessory saphenous veins. The indications and risks of endovenous laser ablation of these incompetent superficial veins in the left lower extremity have been thoroughly explained. The expectations of endothermal ablation have also been discussed. The patient has indicated her desire to proceed. Preauthorization for the procedure has been achieved. The patient is to continue with co mpression to the lower extremities bilaterally, as well as other conservative measures as outlined above. The patient has been scheduled for procedural intervention next week. Patient's questions have been answered. The appropriate pre-procedure consent process has been undertaken. Total time: 24 minutes
[2022-07-31 08:23] LABS: Hematocrit 31.8 % (37-47); Hemoglobin 10.2 g/dL (12.0-15.0); Mean Corp Hgb Conc 32.1 g/dL (32-36); Mean Corpuscular Hgb 31.2 pg (27.0-32.0); Mean Corpuscular Volume 97.2 fL (81-99); Mean Platelet Vol. 8.3 fl (6.2-12.0); Platelet Count 249 K/mm3 (150-450); RBC Distribution Width CV 14.6 % (11.6-14.6); RBC Distribution Width SD 52.6 fl (35.1-43.9); Red Blood Count 3.27 M/mm3 (4.2-5.4); White Blood Count 8.1 K/mm3 (4.4-11.0)
[2022-07-31 08:47] LABS: Anion Gap 3 (5-15); BUN 21 mg/dL (7-18); BUN/Creat Ratio 17.8 RATIO (10-20); Calcium,Total 9.3 mg/dL (8.5-10.1); Chloride 108 mmol/L (98-107); Creatinine, Serum 1.18 mg/dL (0.55-1.02); EST Glomerular Filtration Rate 48 mL/min (>60); Est Glom Filt Rate - Afr Amer 58 mL/min (>60); Glucose 106 mg/dL (74-106); Potassium 3.8 mmol/L (3.5-5.1); Sodium Level 137 mmol/L (136-145)
[2022-08-06 09:09] VITALS: BP 154/82; PULSE 96; RESP 18; TEMP 36.8; O2SAT 96; BMI 40.6
[2022-08-06] MEDS: Enoxaparin 30 MG/0.3 ML Syringe SC (09:17)
[2022-08-06] MEDS: Lactated Ringers 1,000 ML 15 ML IV (09:19)
[2022-08-06] MEDS: Clindamycin 900 MG/50 ML BAG 75 MG IV (09:42)
[2022-08-06 12:33] VITALS: BP 154/82; BP 85/45; PULSE 68; RESP 16; TEMP 36.6; O2SAT 100
[2022-08-06 12:35] VITALS: BP 104/45; BP 154/82; PULSE 64; RESP 16; O2SAT 99
--- NOTE | 2022-08-06 12:35 | DCINST_ITS ---
Discharge Instructions Procedure Endovenous Diet Discharge Diet: No restrictions Activity Keep extremity elevated above heart level: - (Keep involved leg elevated above heart level as much as possible for 48 hours after the procedure.) Dressing / Incision Call your doctor if your incision/area has: Continuous Slow Oozing, Sudden Increased Bleeding (apply pressure.), Increased Pain/ Swelling, Increased Redness, Foul Smelling Discharge and Swelling at the incision site Call your doctor if you observe: Fever of 101 or Higher, Coldness, Increased Pain, Numbness or Tingling and Change in Color (in your involved extremity) Cleanse incision/area with: Keep Dressing Clean & Dry Additional Dressing/Incision Instructions:: It is important to follow these instructions to prevent possible problems and to minimize discomfort. If you have any problems or questions about your procedure, contact Dr. Burrows at or [phone]. 1. Following your procedure, gauze and an Christopher bandage will be placed on your leg to protect the treated areas and minimize bruising and swelling. 2. The original dressing should be left intact for 48 hours. Thereafter you may remove the Christopher bandage and gauze. You will note that Steri-Strips have been used at each of the vein removal sites. Leave these in place. Bruising may be present but will disappear within several days. At this time you may shower. 3. Rewrap your leg with Christopher each day. The Christopher bandage should be applied daily upon arising and worn until bedtime. You should always wrap your leg from the base of the toes upward to the thigh. You may wear a medical grade compression stocking on your leg if you prefer. Follow Up Care Please Follow Up With: Lorenzo Burrows MD When: Call [phone] to schedule a follow-up appointment within 1-2 weeks. Test Results: Test results from this visit will be discussed in further detail at your follow- up appointment, if applicable. Discharge Plan Admission Attending Provider: Lorenzo Burrows Primary Care Provider: Jeferson Vega Discharge Orders/Prescriptions Prescriptions: New oxycodone-acetaminophen [Percocet] 5-325 mg tablet 1 tab PO Q8H PRN (Reason: pain) 5 Days Qty: 14 0RF Continued aspirin 81 MG tablet,chewable 81 mg PO DAILY cholecalciferol (vitamin D3) [Vitamin D3] 1,000 UNIT capsule 1,000 unit PO DAILY Lisinopril/Hydrochlorothiazide [Zestoretic 20/12.5 Tablet] 20-12.5 MG tablet 2 tab PO DAILY Label Comments: cetirizine [Zyrtec] 10 MG tablet 10 mg PO DAILY Referrals / Follow Up: Jeferson Vega MD [Primary Care Provider] - Disposition Disposition (needs filled in before D/C Order can be placed): Home, Self Care
[2022-08-06 12:45] VITALS: BP 154/82; BP 98/45; PULSE 58; RESP 16; O2SAT 98
[2022-08-06 12:54] VITALS: BP 100/53; BP 154/82; PULSE 60; RESP 16; TEMP 36.4; O2SAT 100
[2022-08-06 14:14] VITALS: BP 110/56; BP 154/82; PULSE 51; RESP 16; TEMP 36.3; O2SAT 95
--- NOTE | 2022-08-06 21:33 | PCM.OPRPT ---
Problems Associated Problem List Diagnoses (1) Chronic venous insufficiency: (2) Varicose veins with inflammation: (3) Chronic venous hypertension with inflammation involving left side: (4) Venous stasis dermatitis of left lower extremity: (5) Leg swelling: (6) Leg edema: Report of Operation Date of Procedure: 08/06/22 Pre-Operative Diagnosis: Chronic venous insufficiency, varicose veins with inflammation, chronic venous hypertension with inflammation, venous stasis dermatitis, history of venous ulcerations - Left lower extremity Post-Operative Diagnosis: Chronic venous insufficiency, varicose veins with inflammation, chronic venous hypertension with inflammation, venous stasis dermatitis, history of venous ulcerations - Left lower extremity Surgery/Procedure Performed:: 1. Endovenous laser ablation of the left great saphenous vein 2. Endovenous laser ablation of the left small saphenous vein 3. Endovenous laser ablation of the left accessory saphenous vein in the proximal calf Description of Surgical Findings:: As above Surgeon: Lorenzo Burrows Type of Anesthesia: General and Tumescent Anesthesiologist: Hiram Akbar Specimen's removed: None Drains: None Estimated Blood Loss (mL): Minimal Description of Procedure: This is a 72-year-old female with a longstanding history of chronic venous insufficiency, varicose veins with inflammation, chronic venous hypertension with inflammation, leg pain, leg swelling, venous stasis dermatitis, and venous ulcerations in her left lower extremity. The patient's venous ulcerations have been recurrent, requiring repeated and lengthy medical management. Concerted efforts at conservative treatment measures have been implemented repeatedly, which have included leg elevation, avoidance of idle standing and sitting, the use of graduated compression stockings, weight control measures, active lifestyle, [id number] analgesics, etc. Despite these measures, the patient has continued to have symptoms and manifestations of her chronic venous disease. A venous duplex examination was performed, which revealed segmental valvular incompetence involving the left great saphenous vein, small saphenous vein, accessory saphenous vein at knee level, and an accessory saphenous vein in the proximal calf. The implications of this finding were discussed with the patient in detail. The options of management were fully explained. The indications and risks of endovenous laser ablation of the incompetent superficial veins in the patient's left lower extremity were discussed with the patient in detail. Expectations of the procedure were discussed. The procedure was described in detail. The patient's questions were answered. Patient indicated her desire to proceed. The appropriate preprocedure consent process was undertaken. The patient underwent ultrasound marking of the left great saphenous vein, the left small saphenous vein, and the 2 incompetent accessory saphenous veins preoperatively. She was brought to the operating room suite, placed supine upon the operating room table, where general anesthesia was administered by the anesthesia staff. The patient's left lower extremity and left groin were prepped and draped in the appropriate sterile manner. The patient was placed in reverse Trendelenburg position. Ultrasonography was used to image the left great saphenous vein in the distal calf. The micropuncture technique was used to access the left great saphenous vein percutaneously in the distal calf. In this manner, a 0.018 inch guidewire was advanced intraluminally into the left great saphenous vein, and was visualized by ultrasonography. A micropuncture sheath was advanced over the guidewire. The 0.018 inch guidewire was exchanged for a 0.035 inch guidewire, which was then advanced intraluminally to a level just distal to the left sapheno-femoral junction, as confirmed by ultrasound imaging. A long 4 [place] sheath was then advanced over the guidewire, and its tip was positioned approximately 2 to 3 cm distal to the left sapheno?femoral junction. Attention was then directed to the incompetent left small saphenous vein. To enhance exposure, the left lower extremity was placed in an externally rotated position with the left knee flexed. Using ultrasound imaging and the micropuncture technique, a micropuncture sheath was introduced intraluminally in the left small saphenous vein, near the inferior border of the left gastrocnemius muscle, and was left in place, capped, for subsequent access purposes. Patient was then directed to each of the 2 incompetent accessory saphenous veins in the distal left lower extremity. Once again, using ultrasound imaging and the micropuncture technique, a micropuncture sheath was introduced intraluminally into the incompetent accessory saphenous vein in the proximal calf. Several attempts were made to achieve access to the incompetent accessory saphenous vein at knee level. However, this accessory saphenous vein was extremely small and percutaneous access was not achieved. This vein was felt to be of the least clinical significance as compared to the other veins accessed. Attention was then redirected to the long 4 [place] sheath which had been previously placed intraluminally within the left great saphenous vein. Perivenous tumescent anesthesia was injected from the 4 [place] sheath exit site up to the left sapheno-femoral junction. This was performed segmentally using ultrasound imaging. The [employer] laser fiber was then introduced into the 4 [place] sheath and coupled appropriately. Ultrasonography was used to confirm that the tip of the laser fiber was positioned within the left great saphenous vein approximately 2-1/2 to 3 cm distal to the left sapheno-femoral junction. The patient was placed in Trendelenburg position and the laser fiber was activated. The [employer]io[employer] laser was slowly withdrawn at a constant rate throughout the length of the left great saphenous vein, thereby ablating the left great saphenous vein segmentally. The energy applied was approximately 60 to 80 J/cm. Following the laser ablation, the laser fiber and sheath were and manual pressure was briefly applied to the percutaneous access site to achieve stasis. Attention was then directed to the incompetent left small saphenous vein, into which a micropuncture sheath had been previously placed. A 0.035 inch guidewire was introduced intraluminally, and its tip was advanced proximally into the proximal portion of the left small saphenous vein. The long 4 [place] sheath was then advanced over the guidewire, and into position intraluminally within the left small saphenous vein. Perivenous tumescent anesthesia was then injected from the 4 [place] sheath exit site up to the tip of the sheath in the proximal left small saphenous vein. This was performed segmentally using ultrasound imaging. The [employer] laser fiber was then introduced into the 4 [place] sheath and coupled appropriately. Ultrasonography was used to confirm that the tip of the laser fiber was positioned within the proximal left small saphenous vein, several centimeters distal to its junction with the deep venous system. The patient was placed in Trendelenburg position and the laser fiber was activated. The Angio[employer] laser was slowly withdrawn at a constant rate throughout the length of the left small saphenous vein, thereby ablating the left small saphenous vein segmentally. The energy applied was approximately 60 to 80 J/cm. Following the laser ablation, the laser fiber and sheath were removed, and manual pressure was briefly applied to the percutaneous access site to achieve hemostasis. Attention was then directed to the incompetent accessory saphenous vein in the proximal calf, into which a micropuncture sheath had been previously placed. A 0.035 inch guidewire was introduced intraluminally and its tip was positioned within the proximal portion of the incompetent accessory saphenous vein. The long 4 [place] sheath was then advanced over the guidewire and into position intraluminally within the accessory saphenous vein. Perivenous tumescent anesthesia was then injected segmentally using ultrasound imaging. The [employer] laser fiber was then introduced into the 4 [place] sheath and coupled appropriately. Ultrasonography was used to confirm that the tip of the laser fiber was positioned within the proximal accessory saphenous vein, abutting the previously ablated great saphenous vein. The patient was placed in Trendelenburg position and the laser fiber was activated. The Angio[employer] laser was slowly withdrawn at a constant rate throughout the length of the left accessory saphenous vein, thereby ablating the accessory saphenous vein segmentally. The energy applied was approximately 60 to 80 J/cm. Following the laser ablation, the laser fiber and sheath were removed, and manual pressure was briefly applied to the percutaneous access site to achieve hemostasis. After assuring satisfactory hemostasis, the access sites were approximated using Cavilon and Steri-Strips. Dry sterile gauze dressings were applied over each of the access sites, and the leg was wrapped from the base of the toes to the upper thigh with Kerlix, followed by Christopher wrap. The blood loss for the procedure was minimal. The sponge, needle, and instrument counts at the end of the procedure were correct. The patient tolerated the procedure well, and was transported from the operating room to the postanesthesia care unit in stable condition. The amount of tumescent anesthesia utilized, number of joules applied, and treatment times were recorded separately. Grafts/Implants Used: None Complications None Admit VTE Documentation VTE Present on Admission: No VTE Mechan Device Prophylaxis: SCD's (Right) VTE Pharm Prophylaxis ordered?: Yes
== END 2022-08-06 14:18 | disposition home or self-care (01) ==
LOC: SDC 08:44 → AC 08:45
PROVIDERS: PCP Internal Medicine; Referring Provider Surgery; Visit Provider Surgery
PROC: (CPT 36478; principal; 2022-08-06 10:10)
DX: I83.222 Varicose veins of left lower extremity with both ulcer of calf and inflammation (principal); D59.10 Autoimmune hemolytic anemia, unspecified; L97.222 Non-pressure chronic ulcer of left calf with fat layer exposed; M89.661 Osteopathy after poliomyelitis, right lower leg; N18.30 Chronic kidney disease, stage 3 unspecified; Z79.82 Long term (current) use of aspirin; I12.9 Hypertensive chronic kidney disease with stage 1 through stage 4 chronic kidney disease, or unspecified chronic kidney disease; E66.9 Obesity, unspecified; Z68.39 Body mass index [BMI] 39.0-39.9, adult; K21.9 Gastro-esophageal reflux disease without esophagitis; I10 Essential (primary) hypertension; Z79.899 Other long term (current) drug therapy; B91 Sequelae of poliomyelitis
CPT/HCPCS: 36478; 36479 ×2; 01520; 36415; 80048; 85027; 93005; J7040; J7120

== ENCOUNTER 2022-08-13 13:00 | Outpatient (RCR) | payer MEDICARE, BC, SELFPAY ==
[2022-07-20 01:57] VITALS: BP 139/57; PULSE 88; RESP 22; TEMP 36.2; BMI 39.6
[2022-07-23 08:52] VITALS: BP 141/60; PULSE 87; RESP 22; TEMP 36.3; BMI 39.6
--- NOTE | 2022-07-23 14:00 | PCM.WC.HP ---
History of Present Illness Date of Service: 07/23/22 Chief Complaint: Venous stasis ulceration, left lower extremity History of Wound: This is a 72-year-old female who has had chronic recurring ulcerations in her lower extremities. These are due to chronic venous disease. The ulcerations have been associated with swelling. The swelling is said to be worse late in the day. She was last treated for an ulcer in her left lower extremity last year, last seen at the [facility] on April 02, 2022. At that time, it was deemed that her left lower extremity venous ulceration had healed, and she was discharged with instructions to continue conservative treatment measures, including leg elevation, avoidance of idle standing and sitting, weight control measures, active lifestyle, and the use of graduated compression stockings of 20 to 30 mmHg, worn daily. The patient is ambulatory and claims to be relatively active. She sleeps on a flat mattress at night. However, she typically spends long hours each day sitting. She denies a history of thrombophlebitis. She is obese, with a BMI of 39.7. Her left lower extremity ulceration was noted to occur spontaneously approximately 1 week prior to presentation. 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, right lower leg Venous stasis dermatitis of both lower extremities Venous stasis ulcer Home Medications Lisinopril/Hydrochlorothiazide [Zestoretic 20/12.5 Tablet] 2 tab PO DAILY bp 06/17/17 [History Last Taken 06/17/17] aspirin 81 mg chewable tablet 81 mg PO DAILY HEART HEALTH 06/17/17 [History Last Taken 06/17/17] cholecalciferol (vitamin D3) 25 mcg (1,000 unit) capsule (Vitamin D3) 1,000 unit PO DAILY SUPPLEMENT 06/17/17 [History Last Taken 06/17/17] cetirizine 10 mg tablet (Zyrtec) 10 mg PO DAILY ALLERGIES 06/18/17 [History Last Taken 06/17/17] pantoprazole 40 mg tablet,delayed release 40 mg PO DAILY #60 tabs 06/18/17 [Rx Last Taken Unknown] Allergy/AdvReac Type Severity Reaction Status Date / Time cephalexin [From Keflex] Allergy Hives Verified 06/17/17 22:11 Penicillins Allergy Hives Verified 06/17/17 22:11 Surgical History Status post appendectomy Social History Smoking Status: Never smoker Vital Signs Vital Signs Vital Signs: 07/23/22 08:52 Temperature 97.4 F L Temperature Source Temporal Pulse Rate 87 Respiratory Rate 22 H Blood Pressure 141/60 H Blood Pressure Mean 87 Blood Pressure Source Monitor Weight Weight: 210 lb Body Mass Index (BMI) 39.6 Physical Exam Const alert, oriented x3, no apparent distress and well nourished Constitutional Narrative: The patient is obese, with a BMI of 39.7. General Appearance: cooperative, comfortable, well kempt and well developed Orientation / Consciousness: awake, oriented to person, oriented to place and oriented to time HEENT normocephalic and head/scalp atraumatic Head and Scalp: normal to inspection, normocephalic and atraumatic External Ear: external ears normal Eyes PERRL and EOMs intact bilaterally General Eye: normal appearance of both eyes Resp normal respiratory effort, normal air movement, no retractions and no use of accessory muscles Effort and Inspection: able to speak in complete sentences Extremity no calf tenderness General Extremity: Negative for clubbing or cyanosis Skin Wound Narrative: Slight swelling and edema are noted of the patient's left lower extremity. Scattered small excoriations are noted in the left gaiter area. All sizable ulcerations appear to be healed and epithelialized. There is no sign of infection or cellulitis. Diffuse venous stasis dermatitis is noted in the left gaiter area. Lipodermatosclerosis and hyperpigmentation are noted in the gaiter areas bilaterally. Neuro oriented x3, CN's II-XII intact bilaterally, moves all extremities and no focal motor deficits Sensorium / Orientation: awake, alert, oriented to person, oriented to place and oriented to time Psych Appearance: grossly normal and appropriate Attitude: calm Activity / Motor Behavior: appropriate eye contact Speech: normal speech Mood & Affect: euthymic mood Thought Process: normal thought process Thought Content: normal thought content Attention / Concentration: attention grossly intact Debridement Note Debridement Note No debridement was completed: No debridement was completed today Post-Debridement Measurements and Additional Note: Post-Debridement Measurements/Treatment CRYSTAL - Nurse 1 - General Ulcer Assessment Start: 07/23/22 08:52 Freq: Status: Active Protocol: LOCO Activity Type Activity Date Activity User E-sign Co-sign Detail Recorded Client Recorded Date Recorded By Document 07/23/22 08:52 DL [id number] 07/23/22 08:59 DL 07/23/22 08:52 WC - Today's Visit Information Type of service Follow-up Visit (Physician/PROGRAMMING INTERN ) Arrival Mode Ambulatory Transfer Assistance None Patient Identification Verified (Name & Yes ) Patient Requires Transmission-Based No Precautions Height and Weight Body Mass Index (BMI) 39.6 BMI Classification Obese Vital Signs Temperature (97.8 F-99.1 F) 97.4 F L Temperature Source Temporal Pulse Rate (60-100) 87 Pulse Location Monitor Respiratory Rate (12-18) 22 H Respiratory rate source Observation Blood Pressure (90/60-120/80) 141/60 H Blood Pressure Mean 87 Source Monitor History Since Last Visit- (Skip if this is Patient's initial visit) Have you changed medications since your No last visit? Any new allergies or adverse reactions No Had a fall/change in ADL's that may No increase risk of falls Signs or symptoms of abuse and/or No neglect since last visit Have you been in the hospital since your No last visit? Has dressing in place as prescribed Yes Has compression in place as prescribed Yes Has offloadiing in place as prescribed N/A Experienced any changes in pain level or No management Pain Scale: 0-10 Numeric Is Patient Pain Free? Yes - Nurse 1 - General Ulcer Measurement Start: 07/23/22 08:52 Freq: Status: Active Protocol: Activity Type Activity Date Activity User E-sign Co-sign Detail Recorded Client Recorded Date Recorded By Document 07/23/22 08:52 DL [id number] 07/23/22 08:59 DL 07/23/22 08:52 Wound Center Nurse 1 #2 L LE -Current Size (cm) - Length 0.1 -Current Size (cm) - Width 0.1 -Current Size (cm) - Depth 0.1 -Total Square Cm 0.01 -Photo Taken No -Exudate Amt None Present -Wound Margin Indistinct, Non -Visible -Granulation Amt Large (67-100%) -Granulation Quality [place] -Necrosis Amt Small (1-33%) -Necrotic Tissue Type Adherent Slough -Structure Exposed N/A -Texture (Lety-wound Skin Appearance) Localized Edema ,Scarring -Moisture (Lety-wound Skin Appearance) Dry/Scaly -Color (Lety-wound Skin Appearance) Hemosiderin Staining -Temperature (Lety-wound Skin No Abnormality Appearance) (Pt Warm) -Tenderness on Palpation (Leyt-wound No Skin Appearance) -Ulcer Cleansing Soap and Water -Foul Odor after Cleansing No -Anesthetic Used 4% Lidocaine Solution Right Calf (cm) 31.6 Right Ankle (cm) 24.6 Left Calf (cm) 39.5 Left Ankle (cm) 27.7 WC - Nurse 3 - General Ulcer D/C NN Start: 07/23/22 08:52 Freq: Status: Active Protocol: Activity Type Activity Date Activity User E-sign Co-sign Detail Recorded Client Recorded Date Recorded By Document 07/23/22 09:26 DL [id number] 07/23/22 09:27 DL 07/23/22 09:26 Wound Care Center Nurse 3 #2 L LE -Ulcer Cleansing Soap and Water -Foul Odor after Cleansing No -Other Dressing unna boot Left -Multi-Layered Wrap Application Unna Boot - Left ($) Treatment Response Procedure Tolerated Well Pain Scale: 0-10 Numeric Is Patient Pain Free? Yes WC - Visit Discharge Discharge Condition Stable Ambulatory Status Ambulatory Transportation Private [facility] Facility Type Home Health Orders Sent Yes Assessment/Plan Assessment/Plan (1) Venous stasis ulcer: CODE(S): I83.009 - Varicose veins of unspecified lower extremity with ulcer of unspecified site; L97.909 - Non-pressure chronic ulcer of unspecified part of unspecified lower leg with unspecified severity QUALIFIERS: Venous stasis ulcer site: calf Varicose vein presence: with varicose veins Laterality: left Non-pressure ulcer stage: with fat layer exposed Qualified Code(s): I83.022 - Varicose veins of left lower extremity with ulcer of calf; L97.222 - Non-pressure chronic ulcer of left calf with fat layer exposed (2) Chronic venous hypertension w/ulcer and inflammation involv left side: CODE(S): I87.332 - Chronic venous hypertension (idiopathic) with ulcer and inflammation of left lower extremity; L97.929 - Non-pressure chronic ulcer of unspecified part of left lower leg with unspecified severity (3) Venous stasis dermatitis of both lower extremities: CODE(S): I87.2 - Venous insufficiency (chronic) (peripheral) (4) Chronic venous insufficiency: CODE(S): I87.2 - Venous insufficiency (chronic) (peripheral) (5) Hypertension: CODE(S): I10 - Essential (primary) hypertension (6) History of poliomyelitis: CODE(S): Z86.12 - Personal history of poliomyelitis (7) History of TIA (transient ischemic attack): CODE(S): Z86.73 - Personal history of transient ischemic attack (TIA), and cerebral infarction without residual deficits (8) Autoimmune hemolytic anemia: (9) Cerebrovascular disease: CODE(S): I67.9 - Cerebrovascular disease, unspecified (10) Chronic kidney disease, stage III (moderate): CODE(S): N18.30 - Chronic kidney disease, stage 3 unspecified (11) 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 She has experienced venous ulcerations in her lower extremities in the past. Previous measures have included conservative treatment measures, including leg elevation, avoidance of idle standing and sitting, graduated compression stockings, weight control measures, active lifestyle, etc. These measures have previously resulted in successful healing of the patient's ulcerations. However, her ulcerations have been recurrent, requiring repeated and lengthy medical management. The patient is noted to have severe venous stasis changes in the left lower extremity, with lipodermatosclerosis and hyperpigmentation in the gaiter area. It has been recommended that the patient continue a protocol of conservative treatment measures. These measures have been discussed with patient in detail. The patient is to continue sleeping on a flat mattress at night. She has been encouraged to elevate her lower extremities is much as possible, even during daytime hours. As described to the patient, elevation is to be to heart level, or higher. This is to be implemented as much as possible each day. Prolonged idle sitting has been discouraged. Activity has been encouraged. We are to implement the use of an Unna boot to the left lower extremity, which will be changed twice weekly. The patient is to use her graduated compression stockings to the right lower extremity on a daily basis. These are of 20 to 30 mmHg compression. The patient has been advised to lose weight, if possible. Given the chronic nature of the patient's venous disease, and her proclivity for developing venous stasis ulcerations, we have again discussed the potential benefits of superficial venous ablation of superficial venous incompetence in her lower extremities. Recent venous duplex examination revealed incompetence of the left great saphenous vein, the left small saphenous vein, and 2 incompetent accessory saphenous veins. The indications and risks of endovenous laser ablation of these incompetent superficial veins in the left lower extremity have been thoroughly explained. The expectations of endothermal ablation have also been discussed. The patient has indicated her desire to proceed. Preauthorization for the procedure has been achieved. The patient is to continue with compression to the lower extremities bilaterally, as well as other conservative measures as outlined above. The patient will return in 1 week for reassessment. The patient's left lower extremity venous ablation procedure is scheduled in several weeks. Total time: 25 minutes
[2022-07-25 13:08] VITALS: BP 106/44; PULSE 94; RESP 20; TEMP 36.3; BMI 39.6
[2022-07-30 09:08] VITALS: BP 138/64; PULSE 91; RESP 16; TEMP 36.4; BMI 39.6
[2022-08-01 13:35] VITALS: BP 114/52; PULSE 90; RESP 20; TEMP 36.6; BMI 39.6
[2022-08-13 13:03] VITALS: BP 139/62; PULSE 108; RESP 16; TEMP 36.8; BMI 39.6
--- NOTE | 2022-08-13 14:09 | HP.PCM_ITS ---
History of Present Illness Date of Service: 08/13/22 Chief Complaint: Venous stasis ulceration, chronic venous insufficiency, v aricose veins with inflammation and ulceration, venous hypertension with inflammation and ulceration, venous stasis dermatitis - Left lower extremity History of Wound: This is a 72-year-old female who has had chronic recurring ulcerations in her lower extremities. These are due to chronic venous disease. The ulcerations have been associated with swelling. The swelling is said to be worse late in the day. She was last treated for an ulcer in her left lower extremity last year, last seen at the [facility] on April 02, 2022. At that time, it was deemed that her left lower extremity venous ulceration had healed, and she was discharged with instructions to continue conservative treatment measures, including leg elevation, avoidance of idle standing and sitting, weight control measures, active lifestyle, and the use of graduated compression stockings of 20 to 30 mmHg, worn daily. The patient is ambulatory and claims to be relatively active. She sleeps on a flat mattress at night. However, she typically spends long hours each day sitting. She denies a history of thrombophlebitis. She is obese, with a BMI of 39.7. Her left lower extremity ulceration was noted to occur spontaneously approximately 1 week prior to presentation. 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, right lower leg Shortness of breath on exertion Stroke/cerebrovascular accident Varicose veins with inflammation Venous stasis dermatitis of both lower extremities Venous stasis dermatitis of left lower extremity Venous stasis ulcer Wears dentures Wears glasses Home Medications Lisinopril/Hydrochlorothiazide [Zestoretic 20/12.5 Tablet] 2 tab PO DAILY bp 06/17/17 [History Last Taken 08/06/22] aspirin 81 mg chewable tablet 81 mg PO DAILY HEART HEALTH 06/17/17 [History Last Taken 08/05/22] cholecalciferol (vitamin D3) 25 mcg (1,000 unit) capsule (Vitamin D3) 1,000 unit PO DAILY SUPPLEMENT 06/17/17 [History Last Taken 06/17/17] cetirizine 10 mg tablet (Zyrtec) 10 mg PO DAILY ALLERGIES 06/18/17 [History Last Taken 06/17/17] oxycodone-acetaminophen 5 mg-325 mg tablet (Percocet) 1 tab PO Q8H PRN pain 5 days #14 tabs 08/06/22 [Rx Last Taken Unknown] Allergy/AdvReac Type Severity Reaction Status Date / Time cephalexin [From Keflex] Allergy Hives Verified 08/06/22 09:07 Penicillins Allergy Hives Verified 08/06/22 09:07 Surgical History History of 3 sections Status post appendectomy Social History Smoking Status: Never smoker Vital Signs Vital Signs Vital Signs: 08/13/22 13:03 Temperature 98.2 F Temperature Source Temporal Pulse Rate 108 H Respiratory Rate 16 Blood Pressure 139/62 H Blood Pressure Mean 87 Blood Pressure Source Monitor Blood Pressure Position Sitting Blood Pressure Location Right Arm Oxygen Delivery Method Room Air Weight Weight: 210 lb Body Mass Index (BMI) 39.6 Physical Exam Const alert, oriented x3, no apparent distress and well nourished Constitutional Narrative: The patient is obese, with a BMI of 39.7. General Appearance: cooperative, comfortable, well kempt and well developed Orientation / Consciousness: awake, oriented to person, oriented to place and oriented to time HEENT normocephalic and head/scalp atraumatic Head and Scalp: normal to inspection, normocephalic and atraumatic External Ear: external ears normal Eyes PERRL and EOMs intact bilaterally General Eye: normal appearance of both eyes Resp normal respiratory effort, normal air movement, no retractions and no use of accessory muscles Effort and Inspection: able to speak in complete sentences Extremity no calf tenderness General Extremity: Negative for clubbing or cyanosis Skin Wound Narrative: No significant swelling or edema are noted in the patient's left lower extremity. The percutaneous access sites from her recent venous ablation appear dry, and well approximated. Steri-Strips remain in place. There is no sign of infection or cellulitis. All ulcerations appear to be healed and epithelialized. Mild, scaly dermatitis is noted in the left gaiter area. Neuro oriented x3, CN's II-XII intact bilaterally, moves all extremities and no focal motor deficits Sensorium / Orientation: awake, alert, oriented to person, oriented to place and oriented to time Psych Appearance: grossly normal and appropriate Attitude: calm Activity / Motor Behavior: appropriate eye contact Speech: normal speech Mood & Affect: euthymic mood Thought Process: normal thought process Thought Content: normal thought content Attention / Concentration: attention grossly intact Debridement Note Debridement Note No debridement was completed: No debridement was completed today (There are no open wounds or ulcerations.) Post-Debridement Measurements and Additional Note: Post-Debridement Measurements/Treatment - Nurse 1 - General Ulcer Assessment Start: 07/23/22 08:52 Freq: Status: Active Protocol: LOCO Activity Type Activity Date Activity User E-sign Co-sign Detail Recorded Client Recorded Date Recorded By Document 07/23/22 08:52 DL [id number] 07/23/22 08:59 DL Document 07/25/22 13:08 [facility] [id number] 07/25/22 13:22 BMF Document 07/30/22 09:08 MW [id number] 07/30/22 09:18 MW Document 08/01/22 13:35 DL [id number] 08/01/22 13:40 DL Document 08/13/22 13:03 MW [id number] 08/13/22 13:06 MW 07/23/22 07/25/22 07/30/22 08:52 13:08 09:08 - Today's Visit Information Type of service Follow-up Visit Nurse-only Follow-up Visit (Physician/ESTATE PLANNING DIRECTOR Visit (Physician/ESTATE PLANNING DIRECTOR ) ) Arrival Mode Ambulatory Ambulatory Ambulatory Transfer Assistance None None None Accompanied by self Patient Identification Verified (Name & Yes Yes Yes ) Patient Requires Transmission-Based No No No Precautions Safety Precautions NA Height and Weight Body Mass Index (BMI) 39.6 39.6 39.6 BMI Classification Obese Obese Obese Vital Signs Temperature (97.8 F-99.1 F) 97.4 F L 97.3 F L 97.5 F L Temperature Source Temporal Temporal Temporal Pulse Rate (60-100) 87 94 91 Pulse Location Monitor Monitor Monitor Respiratory Rate (12-18) 22 H 20 H 16 Respiratory rate source Observation Observation Observation Oxygen Delivery Method Room Air Blood Pressure (90/60-120/80) 141/60 H 106/44 L 138/64 H Blood Pressure Mean 87 64 88 Source Monitor Monitor Monitor Position Sitting Blood Pressure Location Left Arm History Since Last Visit- (Skip if this is Patient's initial visit) Have you changed medications since your No No No last visit? Any new allergies or adverse reactions No No No Had a fall/change in ADL's that may No No No increase risk of falls Signs or symptoms of abuse and/or No No No neglect since last visit Have you been in the hospital since your No No No last visit? Has dressing in place as prescribed Yes Yes Yes Has compression in place as prescribed Yes Yes Has offloadiing in place as prescribed N/A N/A N/A Experienced any changes in pain level or No No No management Left Footwear Regular Shoe Right Footwear Regular Shoe Pain Scale: 0-10 Numeric Is Patient Pain Free? Yes Yes Yes 08/01/22 08/13/22 13:35 13:03 WC - Today's Visit Information Type of service Nurse-only Follow-up Visit Visit (Physician/ESTATE PLANNING DIRECTOR ) Arrival Mode Ambulatory Ambulatory Transfer Assistance None None Accompanied by self Patient Identification Verified (Name & Yes Yes ) Patient Requires Transmission-Based No No Precautions Safety Precautions NA Height and Weight Body Mass Index (BMI) 39.6 39.6 BMI Classification Obese Obese Vital Signs Temperature (97.8 F-99.1 F) 98 F 98.2 F Temperature Source Temporal Temporal Pulse Rate (60-100) 90 108 H Pulse Location Monitor Apical Respiratory Rate (12-18) 20 H 16 Respiratory rate source Observation Observation Oxygen Delivery Method Room Air Blood Pressure (90/60-120/80) 114/52 L 139/62 H Blood Pressure Mean 72 87 Source Monitor Monitor Position Sitting Blood Pressure Location Right Arm History Since Last Visit- (Skip if this is Patient's initial visit) Have you changed medications since your No No last visit? Any new allergies or adverse reactions No No Had a fall/change in ADL's that may No No increase risk of falls Signs or symptoms of abuse and/or No No neglect since last visit Have you been in the hospital since your No No last visit? Has dressing in place as prescribed Yes Has compression in place as prescribed Yes Yes Has offloadiing in place as prescribed N/A N/A Experienced any changes in pain level or No No management Left Footwear Regular Shoe Right Footwear Regular Shoe Pain Scale: 0-10 Numeric Is Patient Pain Free? Yes Yes WC - Nurse 1 - General Ulcer Measurement Start: 07/23/22 08:52 Freq: Status: Active Protocol: Activity Type Activity Date Activity User E-sign Co-sign Detail Recorded Client Recorded Date Recorded By Document 07/23/22 08:52 DL [id number] 07/23/22 08:59 DL Document 07/25/22 13:08 BMF [id number] 07/25/22 13:22 BMF Document 07/30/22 09:08 MW [id number] 07/30/22 09:18 MW Document 08/01/22 13:35 DL [id number] 08/01/22 13:40 DL Document 08/13/22 13:03 MW [id number] 08/13/22 13:06 MW 07/23/22 07/25/22 07/30/22 08:52 13:08 09:08 Wound Center Nurse 1 #2 L LE -Combined with other wound No -Current Size (cm) - Length 0.1 1.5 -Current Size (cm) - Width 0.1 2.3 -Current Size (cm) - Depth 0.1 0.1 -Total Square Cm 0.01 3.45 -Date of Last Picture (Recall this 07/30/22 field) -Photo Taken No Yes -Epithelialization Small 1-33% -Tunneling No -Undermining/Tunneling No -Circular Undermining No -Exudate Amt None Present Small -Exudate Type Serous -Wound Margin Indistinct, Non Flat & Intact -Visible -Granulation Amt Large (67-100%) None Present (0 Small (1-33%) %) -Granulation Quality [place] -Slough/Fibrin Yes -Necrosis Amt Small (1-33%) Large (67-100%) -Necrotic Tissue Type Adherent Slough Adherent Slough -Structure Exposed N/A N/A -Texture (Lety-wound Skin Appearance) Localized Edema Excoriation, Assessed, ,Scarring Scarring,Rash Localized Edema ,Scarring -Moisture (Lety-wound Skin Appearance) Dry/Scaly Assessed,Dry/ Scaly -Color (Lety-wound Skin Appearance) Hemosiderin Hemosiderin Assessed,Rubor Staining Staining -Temperature (Lety-wound Skin No Abnormality No Abnormality Appearance) (Pt Warm) (Pt Warm) -Tenderness on Palpation (Lety-wound No No Skin Appearance) -Ulcer Cleansing Soap and Water Soap and Water Soap and Water -Foul Odor after Cleansing No No No -Anesthetic Used 4% Lidocaine 5% Lidocaine Solution Gel Lower Limb Edema Present Yes Right Calf (cm) 31.6 Right Ankle (cm) 24.6 Left Calf (cm) 39.5 40.5 Left Ankle (cm) 27.7 27.0 08/01/22 08/13/22 13:35 13:03 Wound Center Nurse 1 #2 L LE -Combined with other wound No -Current Size (cm) - Length 0 -Current Size (cm) - Width 0 -Current Size (cm) - Depth 0 -Total Square Cm 0 -Date of Last Picture (Recall this field) -Photo Taken -Epithelialization -Tunneling -Undermining/Tunneling -Circular Undermining -Exudate Amt Small -Exudate Type Serosanguineous -Wound Margin Indistinct, Non -Visible -Granulation Amt Small (1-33%) -Granulation Quality [place] -Slough/Fibrin -Necrosis Amt None Present (0 %) -Necrotic Tissue Type -Structure Exposed N/A -Texture (Lety-wound Skin Appearance) Scarring -Moisture (Lety-wound Skin Appearance) Weeping -Color (Lety-wound Skin Appearance) Hemosiderin Staining -Temperature (Lety-wound Skin No Abnormality Appearance) (Pt Warm) -Tenderness on Palpation (Lety-wound No Skin Appearance) -Ulcer Cleansing Not Cleansed -Foul Odor after Cleansing No -Anesthetic Used Lower Limb Edema Present Yes Right Calf (cm) Right Ankle (cm) Left Calf (cm) 38 42.5 Left Ankle (cm) 25.7 27.0 WC - Nurse 2 - General Ulcer CM Notes Start: 07/23/22 08:52 Freq: Status: Active Protocol: Activity Type Activity Date Activity User E-sign Co-sign Detail Recorded Client Recorded Date Recorded By Document 07/30/22 09:33 PL [id number] 04/11/23 09:34 PL Document 08/13/22 13:17 PL [id number] 08/13/22 13:18 PL 07/30/22 08/13/22 09:33 13:17 Wound Center Nurse 2 #2 L LE -Time 09:25 13:15 -Correct Patient Yes -Correct Side, Site, Position Yes -Correct Procedure Yes -Procedure Performed Yes No -Type of Procedure Debridement -Clinical Debridement Subcutaneous -Tissue Removed Subcutaneous -Post Debridement (cm) - Length 1.5 -Post Debridement (cm) - Width 2.3 -Post Debridement (cm) - Depth 0.1 -Total Square (Post) (cm) 3.45 -Area of Debridement (cm) - Length 1.5 -Area of Debridement (cm) - Width 2.3 -Total Square (Area) (cm) 3.45 -Tunneling No -Undermining/Tunneling No -Circular Undermining No -Wound/Ulcer Outcome Not Healed Healed- Epithelialized -Ulcer Cleansing Rinsed/ Irrigated with Saline -Foul Odor after Cleansing No -Bioengineered Tissue No -Bleeding Controlled with Pressure -Treatment Response Procedure Tolerated Well -Debridement - Subq, 1st 20sq cm Yes Pain Scale: 0-10 Numeric Is Patient Pain Free? Yes Yes WC - Nurse 3 - General Ulcer D/C NN Start: 07/23/22 08:52 Freq: Status: Active Protocol: Activity Type Activity Date Activity User E-sign Co-sign Detail Recorded Client Recorded Date Recorded By Document 07/23/22 09:26 DL [id number] 07/23/22 09:27 DL Document 07/25/22 13:08 [facility] [id number] 07/25/22 13:22 BMF Document 07/30/22 09:52 PL [id number] 07/30/22 09:53 PL Document 08/01/22 13:35 DL [id number] 08/01/22 13:40 DL 07/23/22 07/25/22 07/30/22 09:26 13:08 09:52 Wound Care Center Nurse 3 #2 L LE -Ulcer Cleansing Soap and Water Soap and Water -Foul Odor after Cleansing No No -Other Dressing unna boot UNNA BOOT Left -Multi-Layered Wrap Application Unna Boot - Unna Boot - Unna Boot - Left ($) Left ($) Left ($) Treatment Response Procedure Procedure Tolerated Well Tolerated Well Vital Signs Temperature (97.8 F-99.1 F) 97.3 F L Temperature Source Temporal Pulse Rate (60-100) 94 Pulse Location Monitor Respiratory Rate (12-18) 20 H Respiratory rate source Observation Blood Pressure (90/60-120/80) 106/44 L Blood Pressure Mean 64 Source Monitor Pain Scale: 0-10 Numeric Is Patient Pain Free? Yes Yes Yes WC - Visit Discharge Discharge Condition Stable Stable Stable Ambulatory Status Ambulatory Ambulatory Ambulatory Transportation Private Auto Private Auto Private Auto Notes: Facility Type Home Health Orders Sent Yes 08/01/22 13:35 Wound Care Center Nurse 3 #2 L LE -Ulcer Cleansing Soap and Water -Foul Odor after Cleansing No -Other Dressing Left -Multi-Layered Wrap Application Unna Boot - Left ($) Treatment Response Procedure Tolerated Well Vital Signs Temperature (97.8 F-99.1 F) 98 F Temperature Source Temporal Pulse Rate (60-100) 90 Pulse Location Monitor Respiratory Rate (12-18) 20 H Respiratory rate source Observation Blood Pressure (90/60-120/80) 114/52 L Blood Pressure Mean 72 Source Monitor Pain Scale: 0-10 Numeric Is Patient Pain Free? Yes WC - Visit Discharge Discharge Condition Stable Ambulatory Status Ambulatory Transportation Private Auto Notes: Instructions for procedure at [facility] on friday and with Dr. You on Friday given to pt. after consulting with Dr. You. Pt voices understanding. CNM also aware , spoke with Dr Judie You. Facility Type Orders Sent Assessment/Plan Assessment/Plan (1) Venous stasis ulcer: CODE(S): I83.009 - Varicose veins of unspecified lower extremity with ulcer of unspecified site; L97.909 - Non-pressure chronic ulcer of unspecified part of unspecified lower leg with unspecified severity QUALIFIERS: Venous stasis ulcer site: calf Varicose vein presence: with varicose veins Laterality: left Non-pressure ulcer stage: with fat layer exposed Qualified Code(s): I83.022 - Varicose veins of left lower extremity with ulcer of calf; L97.222 - Non-pressure chronic ulcer of left calf with fat layer exposed (2) Chronic venous hypertension w/ulcer and inflammation involv left side: CODE(S): I87.332 - Chronic venous hypertension (idiopathic) with ulcer and inflammation of left lower extremity; L97.929 - Non-pressure chronic ulcer of unspecified part of left lower leg with unspecified severity (3) Venous stasis dermatitis of both lower extremities: CODE(S): I87.2 - Venous insufficiency (chronic) (peripheral) (4) Chronic venous insufficiency: CODE(S): I87.2 - Venous insufficiency (chronic) (peripheral) (5) Hypertension: CODE(S): I10 - Essential (primary) hypertension (6) History of poliomyelitis: CODE(S): Z86.12 - Personal history of poliomyelitis (7) History of TIA (transient ischemic attack): CODE(S): Z86.73 - Personal history of transient ischemic attack (TIA), and cerebral infarction without residual deficits (8) Autoimmune hemolytic anemia: (9) Cerebrovascular disease: CODE(S): I67.9 - Cerebrovascular disease, unspecified (10) Chronic kidney disease, stage III (moderate): CODE(S): N18.30 - Chronic kidney disease, stage 3 unspecified (11) 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 She has experienced venous ulcerations in her lower extremities in the past. Previous measures have included conservative treatment measures, including leg elevation, avoidance of idle standing and sitting, graduated compression stockings, weight control measures, active lifestyle, etc. These measures have previously resulted in successful healing of the patient's ulcerations. However, her ulcerations have been recurrent, requiring repeated and lengthy medical management. The patient recently presented with severe venous stasis changes in the left lower extremity, with lipodermatosclerosis and hyperpigmentation in the gaiter area. A protocol of conservative treatment measures was implemented. These measures were discussed with patient in detail. The patient was encouraged to sleep on a flat mattress at night. She has been encouraged to elevate her lower extremities is much as possible, even during daytime hours. As described to the patient, elevation is to be to heart level, or higher. This was to be implemented as much as possible each day. Prolonged idle sitting has been discouraged. Activity has been encouraged. The patient underwent endovenous laser ablation of the left great saphenous vein, the left small saphenous vein, and the left accessory saphenous vein in the proximal calf 1 week ago, on August 06, 2022. Upon her return today, her percutaneous access sites are healing well. All wounds in the left lower extremity are healed. The dermatitic changes continue to improve, with only mild, scaly dermatitis now remaining in the left gaiter area. The patient has been encouraged to continue with conservative measures, including leg elevation, avoidance of idle standing and sitting, frequent activity, weight control measures, and the daily wearing of graduated compression stockings. Her graduated compression stockings are of 20 to 30 mmHg compression. The patient has been advised to lose weight, if possible. The patient is doing well, and appears to be recovering uneventfully from her recent left lower extremity venous ablation procedure. She is to be discharged from the wound healing center at this time, with no remaining open wounds or ulcerations. She is to follow-up in the office setting in approximately 3 to 4 weeks for reassessment. Total time: 24 minutes
== END 2022-08-14 08:20 | disposition home or self-care (01) ==
LOC: WC 13:00
PROVIDERS: PCP Internal Medicine; Visit Provider Surgery
DX: I83.228 Varicose veins of left lower extremity with both ulcer of other part of lower extremity and inflammation (principal); D59.10 Autoimmune hemolytic anemia, unspecified; L97.822 Non-pressure chronic ulcer of other part of left lower leg with fat layer exposed; M89.661 Osteopathy after poliomyelitis, right lower leg; N18.30 Chronic kidney disease, stage 3 unspecified; Z79.82 Long term (current) use of aspirin; I12.9 Hypertensive chronic kidney disease with stage 1 through stage 4 chronic kidney disease, or unspecified chronic kidney disease; M79.89 Other specified soft tissue disorders; Z79.899 Other long term (current) drug therapy
CPT/HCPCS: 11042; 29580; 99213; G0463

== ENCOUNTER 2022-10-15 08:45 | Outpatient (RCR) | payer MEDICARE, BC, SELFPAY ==
[2022-09-24 09:07] VITALS: BP 132/51; PULSE 81; RESP 20; TEMP 35.8; BMI 40.6
--- NOTE | 2022-09-24 09:57 | HP.PCM_ITS ---
History of Present Illness Date of Service: 09/24/22 Chief Complaint: Venous stasis ulceration, chronic venous insufficiency, v aricose veins with inflammation and ulceration, venous hypertension with inflammation and ulceration, venous stasis dermatitis - Left lower extremity History of Wound: This is a 72-year-old female who has had chronic recurring ulcerations in her lower extremities. These are due to chronic venous disease. The ulcerations have been associated with swelling. The swelling is said to be worse late in the day. She was last treated for an ulcer in her left lower extremity last year, last seen at the [facility] on April 02, 2022. At that time, it was deemed that her left lower extremity venous ulceration had healed, and she was discharged with instructions to continue conservative treatment measures, including leg elevation, avoidance of idle standing and sitting, weight control measures, active lifestyle, and the use of graduated compression stockings of 20 to 30 mmHg, worn daily. The patient is ambulatory and claims to be relatively active. She sleeps on a flat mattress at night. However, she typically spends long hours each day sitting. She denies a history of thrombophlebitis. She is obese, with a BMI of 39.7. Her left lower extremity ulceration was noted to occur spontaneously approximately 1 week prior to presentation. [facility] Medical History (Updated 09/24/22 @ 10:[address] 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, right lower leg Shortness of breath on exertion Stroke/cerebrovascular accident Varicose veins with inflammation Venous stasis dermatitis of both lower extremities Venous stasis dermatitis of left lower extremity Venous stasis dermatitis of left lower extremity Venous stasis ulcer Wears dentures Wears glasses Home Medications Lisinopril/Hydrochlorothiazide [Zestoretic 20/12.5 Tablet] 2 tab PO DAILY bp 06/17/17 [History Last Taken 08/06/22] aspirin 81 mg chewable tablet 81 mg PO DAILY HEART HEALTH 06/17/17 [History Last Taken 08/05/22] cholecalciferol (vitamin D3) 25 mcg (1,000 unit) capsule (Vitamin D3) 1,000 unit PO DAILY SUPPLEMENT 06/17/17 [History Last Taken 06/17/17] cetirizine 10 mg tablet (Zyrtec) 10 mg PO DAILY ALLERGIES 06/18/17 [History Last Taken 06/17/17] oxycodone-acetaminophen 5 mg-325 mg tablet (Percocet) 1 tab PO Q8H PRN pain 5 days #14 tabs 08/06/22 [Rx Last Taken Unknown] Allergy/AdvReac Type Severity Reaction Status Date / Time cephalexin [From Keflex] Allergy Hives Verified 08/06/22 09:07 Penicillins Allergy Hives Verified 08/06/22 09:07 Surgical History History of 3 sections Status post appendectomy Social History Smoking Status: Never smoker Vital Signs Vital Signs Vital Signs: 09/24/22 09:07 Temperature 96.5 F L Temperature Source Temporal Pulse Rate 81 Respiratory Rate 20 H Blood Pressure 132/51 H Blood Pressure Mean 78 Blood Pressure Source Monitor Weight Weight: 214 lb 12.627 oz Body Mass Index (BMI) 40.6 Physical Exam Const alert, oriented x3, no apparent distress and well nourished Constitutional Narrative: The patient is obese, with a BMI of 39.7. General Appearance: cooperative, comfortable, well kempt and well developed Orientation / Consciousness: awake, oriented to person, oriented to place and oriented to time HEENT normocephalic and head/scalp atraumatic Head and Scalp: normal to inspection, normocephalic and atraumatic External Ear: external ears normal Eyes PERRL and EOMs intact bilaterally General Eye: normal appearance of both eyes Resp normal respiratory effort, normal air movement, no retractions and no use of accessory muscles Effort and Inspection: able to speak in complete sentences Extremity no calf tenderness General Extremity: Negative for clubbing or cyanosis Skin Wound Narrative: No significant swelling or edema are noted in the patient's right lower extremity. Slight swelling is noted in the patient's left lower extremity. The percutaneous access sites from her recent venous ablation are well-healed. There is no sign of infection or cellulitis. A rather diffuse, scaly dermatitis is noted in the left gaiter area. A small area of superficial excoriation is noted on the distal, left pretibial area. Otherwise, there are no superficial wounds or ulcerations. Neuro oriented x3, CN's II-XII intact bilaterally, moves all extremities and no focal motor deficits Sensorium / Orientation: awake, alert, oriented to person, oriented to place and oriented to time Psych Appearance: grossly normal and appropriate Attitude: calm Activity / Motor Behavior: appropriate eye contact Speech: normal speech Mood & Affect: euthymic mood Thought Process: normal thought process Thought Content: normal thought content Attention / Concentration: attention grossly intact Debridement Note Debridement Note No debridement was completed: No debridement was completed today Post-Debridement Measurements and Additional Note: Post-Debridement Measurements/Treatment - Nurse 1 - General Ulcer Assessment Start: 09/24/22 09:06 Freq: Status: Active Protocol: [email or web address].[email or web address] Activity Type Activity Date Activity User E-sign Co-sign Detail Recorded Client Recorded Date Recorded By Document 09/24/22 09:07 AZEB [id number] 09/24/22 09:13 DL 09/24/22 09:07 - Today's Visit Information Type of service Initial Visit Arrival Mode Ambulatory Transfer Assistance None Patient Identification Verified (Name & Yes ) Patient Requires Transmission-Based No Precautions Safety Precautions NA Height and Weight Height 5 ft 1 in Weight 214 lb 12.627 oz Weight in Pounds 214.8 lbs Body Mass Index (BMI) 40.6 BMI Classification Obese BSA - Sundeep 1.95 Vital Signs Temperature (97.8 F-99.1 F) 96.5 F L Temperature Source Temporal Pulse Rate (60-100) 81 Pulse Location Monitor Respiratory Rate (12-18) 20 H Respiratory rate source Observation Blood Pressure (90/60-120/80) 132/51 H Blood Pressure Mean 78 Source Monitor History Since Last Visit- (Skip if this is Patient's initial visit) Have you changed medications since your No last visit? Any new allergies or adverse reactions No Had a fall/change in ADL's that may No increase risk of falls Signs or symptoms of abuse and/or No neglect since last visit Have you been in the hospital since your No last visit? Has dressing in place as prescribed Yes Has compression in place as prescribed Yes Has offloadiing in place as prescribed N/A Pain Scale: 0-10 Numeric Is Patient Pain Free? Yes - Nurse 1 - General Ulcer Measurement Start: 09/24/22 09:06 Freq: Status: Active Protocol: Activity Type Activity Date Activity User E-sign Co-sign Detail Recorded Client Recorded Date Recorded By Document 09/24/22 09:07 DL [id number] 09/24/22 09:13 DL 09/24/22 09:07 Wound Center Nurse 1 Right Calf (cm) 31.8 Right Ankle (cm) 25.5 Left Calf (cm) 39.2 Left Ankle (cm) 26.5 - Nurse 3 - General Ulcer D/C NN Start: 09/24/22 09:06 Freq: Status: Active Protocol: Activity Type Activity Date Activity User E-sign Co-sign Detail Recorded Client Recorded Date Recorded By Document 09/24/22 09:52 DL [id number] 09/24/22 09:53 DL 09/24/22 09:52 Wound Care Center Nurse 3 Left -Multi-Layered Wrap Application Unna Boot - Left ($) Treatment Response Procedure Tolerated Well Pain Scale: 0-10 Numeric Is Patient Pain Free? Yes WC - Visit Discharge Discharge Condition Stable Ambulatory Status Ambulatory Transportation Private Auto Notes: Dressing applied per Guerda Lowe today in clinic . Assessment/Plan Assessment/Plan (1) Venous stasis dermatitis of left lower extremity: CODE(S): I87.2 - Venous insufficiency (chronic) (peripheral) (2) Venous stasis ulcer: CODE(S): I83.009 - Varicose veins of unspecified lower extremity with ulcer of unspecified site; L97.909 - Non-pressure chronic ulcer of unspecified part of unspecified lower leg with unspecified severity QUALIFIERS: Venous stasis ulcer site: calf Varicose vein presence: with varicose veins Laterality: left Non-pressure ulcer stage: with fat layer exposed Qualified Code(s): I83.022 - Varicose veins of left lower extremity with ulcer of calf; L97.222 - Non-pressure chronic ulcer of left calf with fat layer exposed (3) Chronic venous hypertension w/ulcer and inflammation involv left side: CODE(S): I87.332 - Chronic venous hypertension (idiopathic) with ulcer and inflammation of left lower extremity; L97.929 - Non-pressure chronic ulcer of unspecified part of left lower leg with unspecified severity (4) Chronic venous insufficiency: CODE(S): I87.2 - Venous insufficiency (chronic) (peripheral) (5) Hypertension: CODE(S): I10 - Essential (primary) hypertension (6) History of poliomyelitis: CODE(S): Z86.12 - Personal history of poliomyelitis (7) History of TIA (transient ischemic attack): CODE(S): Z86.73 - Personal history of transient ischemic attack (TIA), and cerebral infarction without residual deficits (8) Autoimmune hemolytic anemia: (9) Cerebrovascular disease: CODE(S): I67.9 - Cerebrovascular disease, unspecified (10) Chronic kidney disease, stage III (moderate): CODE(S): N18.30 - Chronic kidney disease, stage 3 unspecified (11) 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 She has experienced venous ulcerations in her lower extremities in the past. Previous measures have included conservative treatment measures, including leg elevation, avoidance of idle standing and sitting, graduated compression stockings, weight control measures, active lifestyle, etc. These measures have previously resulted in successful healing of the patient's ulcerations. However, her ulcerations have been recurrent, requiring repeated and lengthy medical management. The patient recently presented with severe venous stasis changes in the left lower extremity, with lipodermatosclerosis and hyperpigmentation in the gaiter area. A protocol of conservative treatment measures was implemented. These measures were discussed with patient in detail. The patient was encouraged to sleep on a flat mattress at night. She has been encouraged to elevate her lower extremities is much as possible, even during daytime hours. As described to the patient, elevation is to be to heart level, or higher. This was to be implemented as much as possible each day. Prolonged idle sitting has been discouraged. Activity has been encouraged. The patient underwent endovenous laser ablation of the left great saphenous vein, the left small saphenous vein, and the left accessory saphenous vein in the proximal calf on August 06, 2022. The patient did well postoperatively. Approximately 5 weeks post-procedure, in late August, the patient developed recurrent venous stasis dermatitis and superficial ulcerations in the distal left gaiter area. She was seen and evaluated at the urgent care facility at the local [facility] facility. A prescription for Bactrim was prescribed, which has now been completed. She has been using collagen hydrogel and gauze topically. She also claims to have been elevating her legs and wearing graduated compression stockings on a daily basis. As of her return today, a diffuse scaly dermatitis is noted, with superficial excoriation noted on the distal left pretibial area. We are to continue conservative treatment measures, including leg elevation, avoidance of idle standing and sitting, with encouragement for activity. We are to reimplement the use of an Unna boot to the left lower extremity, which will be applied today, and will be changed twice weekly. It is anticipated that the combination of compression and zinc oxide will help to address the dermatitic changes in the left lower extremity, as this modality has yielded satisfactory results in the past. The patient is to return in 1 week for reevaluation. We will also seek to obtain pneumatic mechanical compression garments for the patient's lower extremities (Koya), which can be used by the patient long-term several times daily to enhance venous return and help to mitigate the chronic recurring manifestations in the patient's lower extremities relative to her chronic venous disease. Weight control measures have again been encouraged. The patient will return for reevaluation in 1 week, and a venous duplex examination will be considered in the near future to assess the results of her recent venous ablation procedure. Total time: 28 minutes
[2022-09-26 13:12] VITALS: BP 149/54; PULSE 68; RESP 18; TEMP 36; BMI 40.6
[2022-10-01 08:57] VITALS: BP 122/47; PULSE 73; RESP 16; TEMP 36.8; BMI 40.6
--- NOTE | 2022-10-01 09:20 | HP.PCM_ITS ---
History of Present Illness Date of Service: 10/01/22 Chief Complaint: Venous stasis ulceration, chronic venous insufficiency, v aricose veins with inflammation and ulceration, venous hypertension with inflammation and ulceration, venous stasis dermatitis - Left lower extremity History of Wound: This is a 72-year-old female who has had chronic recurring ulcerations in her lower extremities. These are due to chronic venous disease. The ulcerations have been associated with swelling. The swelling is said to be worse late in the day. She was last treated for an ulcer in her left lower extremity last year, last seen at the [facility] on April 02, 2022. At that time, it was deemed that her left lower extremity venous ulceration had healed, and she was discharged with instructions to continue conservative treatment measures, including leg elevation, avoidance of idle standing and sitting, weight control measures, active lifestyle, and the use of graduated compression stockings of 20 to 30 mmHg, worn daily. The patient is ambulatory and claims to be relatively active. She sleeps on a flat mattress at night. However, she typically spends long hours each day sitting. She denies a history of thrombophlebitis. She is obese, with a BMI of 39.7. Her left lower extremity ulceration was noted to occur spontaneously approximately 1 week prior to presentation. 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, right lower leg Shortness of breath on exertion Stroke/cerebrovascular accident Varicose veins with inflammation Venous stasis dermatitis of both lower extremities Venous stasis dermatitis of left lower extremity Venous stasis dermatitis of left lower extremity Venous stasis ulcer Wears dentures Wears glasses Home Medications Lisinopril/Hydrochlorothiazide [Zestoretic 20/12.5 Tablet] 2 tab PO DAILY bp 06/17/17 [History Last Taken 08/06/22] aspirin 81 mg chewable tablet 81 mg PO DAILY HEART HEALTH 06/17/17 [History Last Taken 08/05/22] cholecalciferol (vitamin D3) 25 mcg (1,000 unit) capsule (Vitamin D3) 1,000 unit PO DAILY SUPPLEMENT 06/17/17 [History Last Taken 06/17/17] cetirizine 10 mg tablet (Zyrtec) 10 mg PO DAILY ALLERGIES 06/18/17 [History Last Taken 06/17/17] oxycodone-acetaminophen 5 mg-325 mg tablet (Percocet) 1 tab PO Q8H PRN pain 5 days #14 tabs 08/06/22 [Rx Last Taken Unknown] Allergy/AdvReac Type Severity Reaction Status Date / Time cephalexin [From Keflex] Allergy Hives Verified 08/06/22 09:07 Penicillins Allergy Hives Verified 08/06/22 09:07 Surgical History History of 3 sections Status post appendectomy Social History Smoking Status: Never smoker Vital Signs Vital Signs Vital Signs: 10/01/22 08:57 Temperature 98.2 F Temperature Source Temporal Pulse Rate 73 Respiratory Rate 16 Blood Pressure 122/47 H Blood Pressure Mean 72 Blood Pressure Source Monitor Blood Pressure Position Sitting Blood Pressure Location Left Arm Oxygen Delivery Method Room Air Weight Weight: 214 lb 12.627 oz Body Mass Index (BMI) 40.6 Physical Exam Const alert, oriented x3, no apparent distress and well nourished Constitutional Narrative: The patient is obese, with a BMI of 39.7. General Appearance: cooperative, comfortable, well kempt and well developed Orientation / Consciousness: awake, oriented to person, oriented to place and oriented to time HEENT normocephalic and head/scalp atraumatic Head and Scalp: normal to inspection, normocephalic and atraumatic External Ear: external ears normal Eyes PERRL and EOMs intact bilaterally General Eye: normal appearance of both eyes Resp normal respiratory effort, normal air movement, no retractions and no use of accessory muscles Effort and Inspection: able to speak in complete sentences Extremity no calf tenderness General Extremity: Negative for clubbing or cyanosis Skin Wound Narrative: No significant swelling or edema are noted in the patient's right lower extremity. Slight swelling is noted in the patient's left lower extremity. The percutaneous access sites from her recent venous ablation are well-healed. There is no sign of infection or cellulitis. A rather diffuse, scaly dermatitis is noted in the left gaiter area. A small area of superficial excoriation is noted on the distal, left pretibial area. Otherwise, there are no superficial wounds or ulcerations. There has been little change since 1 week ago. Neuro oriented x3, CN's II-XII intact bilaterally, moves all extremities and no focal motor deficits Sensorium / Orientation: awake, alert, oriented to person, oriented to place and oriented to time Psych Appearance: grossly normal and appropriate Attitude: calm Activity / Motor Behavior: appropriate eye contact Speech: normal speech Mood & Affect: euthymic mood Thought Process: normal thought process Thought Content: normal thought content Attention / Concentration: attention grossly intact Debridement Note Debridement Note No debridement was completed: No debridement was completed today Post-Debridement Measurements and Additional Note: Post-Debridement Measurements/Treatment WC - Nurse 1 - General Ulcer Assessment Start: 09/24/22 09:06 Freq: Status: Active Protocol: .LASHONDA Activity Type Activity Date Activity User E-sign Co-sign Detail Recorded Client Recorded Date Recorded By Document 09/24/22 09:07 DL [id number] 09/24/22 09:13 DL Document 09/26/22 13:12 DL [id number] 09/26/22 13:13 DL Document 10/01/22 08:57 [facility] [id number] 10/01/22 09:00 BMF 09/24/22 09/26/22 10/01/22 09:07 13:12 08:57 - Today's Visit Information Type of service Initial Visit Nurse-only Follow-up 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 ) Arrival Mode Ambulatory Ambulatory Ambulatory Transfer Assistance None None None Patient Identification Verified (Name & Yes Yes Yes ) Patient Requires Transmission-Based No No No Precautions Safety Precautions NA Height and Weight Height 5 ft 1 in Weight 214 lb 12.627 oz Weight in Pounds 214.8 lbs Body Mass Index (BMI) 40.6 40.6 40.6 BMI Classification Obese Obese Obese BSA - Sundeep 1.95 Vital Signs Temperature (97.8 F-99.1 F) 96.5 F L 96.8 F L 98.2 F Temperature Source Temporal Temporal Temporal Pulse Rate (60-100) 81 68 73 Pulse Location Monitor Monitor Monitor Respiratory Rate (12-18) 20 H 18 16 Respiratory rate source Observation Observation Observation Oxygen Delivery Method Room Air Blood Pressure (90/60-120/80) 132/51 H 149/54 H 122/47 H Blood Pressure Mean 78 85 72 Source Monitor Monitor Monitor Position Sitting Blood Pressure Location Left Arm History Since Last Visit- (Skip if this is Patient's initial visit) Have you changed medications since your No No No last visit? Any new allergies or adverse reactions No No No Had a fall/change in ADL's that may No No No increase risk of falls Signs or symptoms of abuse and/or No No No neglect since last visit Have you been in the hospital since your No No No last visit? Has dressing in place as prescribed Yes Yes Yes Has compression in place as prescribed Yes Yes Yes Has offloadiing in place as prescribed N/A N/A N/A Experienced any changes in pain level or No No management Left Footwear Regular Shoe Right Footwear Regular Shoe Pain Scale: 0-10 Numeric Is Patient Pain Free? Yes Yes Yes WC - Nurse 1 - General Ulcer Measurement Start: 09/24/22 09:06 Freq: Status: Active Protocol: Activity Type Activity Date Activity User E-sign Co-sign Detail Recorded Client Recorded Date Recorded By Document 09/24/22 09:07 DL [id number] 09/24/22 09:13 DL Document 09/26/22 13:12 DL [id number] 09/26/22 13:13 DL Document 10/01/22 08:57 BMF [id number] 10/01/22 09:00 BMF 09/24/22 09/26/22 10/01/22 09:07 13:12 08:57 Wound Center Nurse 1 Lower Limb Edema Present Yes Right Calf (cm) 31.8 Right Ankle (cm) 25.5 Left Calf (cm) 39.2 39.4 39.5 Left Ankle (cm) 26.5 27.2 27 - Nurse 3 - General Ulcer D/C NN Start: 09/24/22 09:06 Freq: Status: Active Protocol: Activity Type Activity Date Activity User E-sign Co-sign Detail Recorded Client Recorded Date Recorded By Document 09/24/22 09:52 DL [id number] 09/24/22 09:53 DL Document 09/26/22 13:12 DL [id number] 09/26/22 13:13 DL 09/24/22 09/26/22 09:52 13:12 Wound Care Center Nurse 3 Left -Multi-Layered Wrap Application Unna Boot - Unna Boot - Left ($) Left ($) Treatment Response Procedure Tolerated Well Vital Signs Temperature (97.8 F-99.1 F) 96.8 F L Temperature Source Temporal Pulse Rate (60-100) 68 Pulse Location Monitor Respiratory Rate (12-18) 18 Respiratory rate source Observation Blood Pressure (90/60-120/80) 149/54 H Blood Pressure Mean 85 Source Monitor Pain Scale: 0-10 Numeric Is Patient Pain Free? Yes Yes WC - Visit Discharge Discharge Condition Stable Stable Ambulatory Status Ambulatory Ambulatory Transportation Private Auto Private Auto Notes: Dressing applied per Guerda Lowe today in clinic . Assessment/Plan Assessment/Plan (1) Venous stasis dermatitis of left lower extremity: CODE(S): I87.2 - Venous insufficiency (chronic) (peripheral) (2) Venous stasis ulcer: CODE(S): I83.009 - Varicose veins of unspecified lower extremity with ulcer of unspecified site; L97.909 - Non-pressure chronic ulcer of unspecified part of unspecified lower leg with unspecified severity QUALIFIERS: Venous stasis ulcer site: calf Varicose vein presence: with varicose veins Laterality: left Non-pressure ulcer stage: limited to breakdown of skin Qualified Code(s): I83.022 - Varicose veins of left lower extremity with ulcer of calf; L97.221 - Non-pressure chronic ulcer of left calf limited to breakdown of skin (3) Chronic venous hypertension w/ulcer and inflammation involv left side: CODE(S): I87.332 - Chronic venous hypertension (idiopathic) with ulcer and inflammation of left lower extremity; L97.929 - Non-pressure chronic ulcer of unspecified part of left lower leg with unspecified severity (4) Chronic venous insufficiency: CODE(S): I87.2 - Venous insufficiency (chronic) (peripheral) (5) Hypertension: CODE(S): I10 - Essential (primary) hypertension (6) History of poliomyelitis: CODE(S): Z86.12 - Personal history of poliomyelitis (7) History of TIA (transient ischemic attack): CODE(S): Z86.73 - Personal history of transient ischemic attack (TIA), and cerebral infarction without residual deficits (8) Autoimmune hemolytic anemia: (9) Cerebrovascular disease: CODE(S): I67.9 - Cerebrovascular disease, unspecified (10) Chronic kidney disease, stage III (moderate): CODE(S): N18.30 - Chronic kidney disease, stage 3 unspecified (11) 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 She has experienced venous ulcerations in her lower extremities in the past. Previous measures have included conservative treatment measures, including leg elevation, avoidance of idle standing and sitting, graduated compression stockings, weight control measures, active lifestyle, etc. These measures have previously resulted in successful healing of the patient's ulcerations. However, her ulcerations have been recurrent, requiring repeated and lengthy medical management. The patient recently presented with severe venous stasis changes in the left lower extremity, with lipodermatosclerosis and hyperpigmentation in the gaiter area. A protocol of conservative treatment measures was implemented. These measures were discussed with patient in detail. The patient was encouraged to sleep on a flat mattress at night. She has been encouraged to elevate her lower extremities is much as possible, even during daytime hours. As described to the patient, elevation is to be to heart level, or higher. This was to be implemented as much as possible each day. Prolonged idle sitting has been discouraged. Activity has been encouraged. The patient underwent endovenous laser ablation of the left great saphenous vein, the left small saphenous vein, and the left accessory saphenous vein in the proximal calf on August 06, 2022. The patient did well postoperatively. Approximately 5 weeks post-procedure, in late August, the patient developed recurrent venous stasis dermatitis and superficial ulcerations in the distal left gaiter area. She was seen and evaluated at the urgent care facility at the local [facility]. A prescription for Bactrim was prescribed, which has now been completed. She has been using collagen hydrogel and gauze topically. She also claims to have been elevating her legs and wearing graduated compression stockings on a daily basis. As of her return today, a diffuse scaly dermatitis is noted, with superficial excoriation noted on the distal left pretibial area. We are to continue conservative treatment measures, including leg elevation, avoidance of idle standing and sitting, with encouragement for activity. We are to reimplement the use of an Unna boot to the left lower extremity, which will be applied today, and will be changed twice weekly. It is anticipated that the combination of compression and zinc oxide will help to address the dermatitic changes in the left lower extremity, as this modality has yielded satisfactory results in the past. The patient is to return in 2 weeks for reevaluation. We will also seek to obtain pneumatic mechanical compression garments for the patient's lower extremities (Koya), which can be used by the patient long-term several times daily to enhance venous return and help to mitigate the chronic recurring manifestations in the patient's lower extremities relative to her chronic venous disease. Weight control measures have again been encouraged. The patient will return for reevaluation in 2 weeks, and a venous duplex examination will be considered in the near future to assess the results of her recent venous ablation procedure. Total time: 26 minutes
[2022-10-03 13:52] VITALS: BP 127/48; PULSE 97; TEMP 36.5; BMI 40.6
[2022-10-08 08:11] VITALS: BP 130/54; PULSE 74; TEMP 36.2; BMI 40.6
[2022-10-08 08:39] VITALS: BP 130/74; PULSE 74; RESP 20; TEMP 36; BMI 40.6
[2022-10-10 13:22] VITALS: BP 153/60; PULSE 90; RESP 16; BMI 40.6
[2022-10-15 08:59] VITALS: BP 131/57; PULSE 78; RESP 20; TEMP 36.2; BMI 40.6
--- NOTE | 2022-10-15 14:14 | HP.PCM_ITS ---
History of Present Illness Date of Service: 10/15/22 Chief Complaint: Venous stasis ulceration, chronic venous insufficiency, v aricose veins with inflammation and ulceration, venous hypertension with inflammation and ulceration, venous stasis dermatitis - Left lower extremity History of Wound: This is a 72-year-old female who has had chronic recurring ulcerations in her lower extremities. These are due to chronic venous disease. The ulcerations have been associated with swelling. The swelling is said to be worse late in the day. She was last treated for an ulcer in her left lower extremity last year, last seen at the [facility] on April 02, 2022. At that time, it was deemed that her left lower extremity venous ulceration had healed, and she was discharged with instructions to continue conservative treatment measures, including leg elevation, avoidance of idle standing and sitting, weight control measures, active lifestyle, and the use of graduated compression stockings of 20 to 30 mmHg, worn daily. The patient is ambulatory and claims to be relatively active. She sleeps on a flat mattress at night. However, she typically spends long hours each day sitting. She denies a history of thrombophlebitis. She is obese, with a BMI of 39.7. Her left lower extremity ulceration was noted to occur spontaneously approximately 1 week prior to presentation. 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, right lower leg Shortness of breath on exertion Stroke/cerebrovascular accident Varicose veins with inflammation Venous stasis dermatitis of both lower extremities Venous stasis dermatitis of left lower extremity Venous stasis dermatitis of left lower extremity Venous stasis ulcer Wears dentures Wears glasses Home Medications Lisinopril/Hydrochlorothiazide [Zestoretic 20/12.5 Tablet] 2 tab PO DAILY bp 06/17/17 [History Last Taken 08/06/22] aspirin 81 mg chewable tablet 81 mg PO DAILY HEART HEALTH 06/17/17 [History Last Taken 08/05/22] cholecalciferol (vitamin D3) 25 mcg (1,000 unit) capsule (Vitamin D3) 1,000 unit PO DAILY SUPPLEMENT 06/17/17 [History Last Taken 06/17/17] cetirizine 10 mg tablet (Zyrtec) 10 mg PO DAILY ALLERGIES 06/18/17 [History Last Taken 06/17/17] oxycodone-acetaminophen 5 mg-325 mg tablet (Percocet) 1 tab PO Q8H PRN pain 5 days #14 tabs 08/06/22 [Rx Last Taken Unknown] Allergy/AdvReac Type Severity Reaction Status Date / Time cephalexin [From Keflex] Allergy Hives Verified 08/06/22 09:07 Penicillins Allergy Hives Verified 08/06/22 09:07 Surgical History History of 3 sections Status post appendectomy Social History Smoking Status: Never smoker Vital Signs Vital Signs Vital Signs: 10/15/22 08:59 Temperature 97.2 F L Temperature Source Temporal Pulse Rate 78 Respiratory Rate 20 H Blood Pressure 131/57 H Blood Pressure Mean 81 Blood Pressure Source Monitor Weight Weight: 214 lb 12.627 oz Body Mass Index (BMI) 40.6 Physical Exam Const alert, oriented x3, no apparent distress and well nourished Constitutional Narrative: The patient is obese, with a BMI of 39.7. General Appearance: cooperative, comfortable, well kempt and well developed Orientation / Consciousness: awake, oriented to person, oriented to place and oriented to time HEENT normocephalic and head/scalp atraumatic Head and Scalp: normal to inspection, normocephalic and atraumatic External Ear: external ears normal Eyes PERRL and EOMs intact bilaterally General Eye: normal appearance of both eyes Resp normal respiratory effort, normal air movement, no retractions and no use of accessory muscles Effort and Inspection: able to speak in complete sentences Extremity no calf tenderness General Extremity: Negative for clubbing or cyanosis Skin Wound Narrative: No significant swelling or edema are noted in the patient's right lower extremity. Slight swelling is noted in the patient's left lower extremity. The percutaneous access sites from her recent venous ablation are well-healed. There is no sign of infection or cellulitis. An erythematous rash was noted on the left supramalleolar area, nearly circumferential. This has the appearance of a possible tenia or yeast infection. Otherwise, there are no superficial wounds or ulcerations. Neuro oriented x3, CN's II-XII intact bilaterally, moves all extremities and no focal motor deficits Sensorium / Orientation: awake, alert, oriented to person, oriented to place and oriented to time Psych Appearance: grossly normal and appropriate Attitude: calm Activity / Motor Behavior: appropriate eye contact Speech: normal speech Mood & Affect: euthymic mood Thought Process: normal thought process Thought Content: normal thought content Attention / Concentration: attention grossly intact Debridement Note Debridement Note No debridement was completed: No debridement was completed today Post-Debridement Measurements and Additional Note: Post-Debridement Measurements/Treatment - Nurse 1 - General Ulcer Assessment Start: 09/24/22 09:06 Freq: Status: Active Protocol: LOCO Activity Type Activity Date Activity User E-sign Co-sign Detail Recorded Client Recorded Date Recorded By Document 09/24/22 09:07 DL [id number] 09/24/22 09:13 DL Document 09/26/22 13:12 DL [id number] 09/26/22 13:13 DL Document 10/01/22 08:57 [facility] [id number] 10/01/22 09:00 [facility] Document 10/03/22 13:52 [place] [id number] 10/03/22 13:53 AK Document 10/08/22 08:11 AK [id number] 10/08/22 08:14 AK Document 10/08/22 08:39 DL [id number] 10/08/22 08:43 DL Document 10/10/22 13:22 DL [id number] 10/10/22 13:24 DL Document 10/15/22 08:59 DL [id number] 10/15/22 09:01 DL 09/24/22 09/26/22 10/01/22 09:07 13:12 08:57 - Today's Visit Information Type of service Initial Visit Nurse-only Follow-up Visit Visit (Physician/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 ) Arrival Mode Ambulatory Ambulatory Ambulatory Transfer Assistance None None None Patient Identification Verified (Name & Yes Yes Yes ) Patient Requires Transmission-Based No No No Precautions Safety Precautions NA Height and Weight Height 5 ft 1 in Weight 214 lb 12.627 oz Weight in Pounds 214.8 lbs Body Mass Index (BMI) 40.6 40.6 40.6 BMI Classification Obese Obese Obese [facility] - [facility] 1.95 Vital Signs Temperature (97.8 F-99.1 F) 96.5 F L 96.8 F L 98.2 F Temperature Source Temporal Temporal Temporal Pulse Rate (60-100) 81 68 73 Pulse Location Monitor Monitor Monitor Respiratory Rate (12-18) 20 H 18 16 Respiratory rate source Observation Observation Observation Oxygen Delivery Method Room Air Blood Pressure (90/60-120/80) 132/51 H 149/54 H 122/47 H Blood Pressure Mean 78 85 72 Source Monitor Monitor Monitor Position Sitting Blood Pressure Location Left Arm History Since Last Visit- (Skip if this is Patient's initial visit) Have you changed medications since your No No No last visit? Any new allergies or adverse reactions No No No Had a fall/change in ADL's that may No No No increase risk of falls Signs or symptoms of abuse and/or No No No neglect since last visit Have you been in the hospital since your No No No last visit? Has dressing in place as prescribed Yes Yes Yes Has compression in place as prescribed Yes Yes Yes Has offloadiing in place as prescribed N/A N/A N/A Experienced any changes in pain level or No No management Left Footwear Regular Shoe Right Footwear Regular Shoe Pain Scale: 0-10 Numeric Is Patient Pain Free? Yes Yes Yes 10/03/22 10/08/22 10/08/22 13:52 08:11 08:39 WC - Today's Visit Information Type of service Nurse-only Nurse-only Nurse-only Visit Visit Visit Arrival Mode Ambulatory Ambulatory Ambulatory Transfer Assistance None Patient Identification Verified (Name & Yes Yes Yes ) Patient Requires Transmission-Based No No No Precautions Safety Precautions NA Height and Weight Height Weight Weight in Pounds Body Mass Index (BMI) 40.6 40.6 40.6 BMI Classification Obese Obese Obese BSA [facility] Vital Signs Temperature (97.8 F-99.1 F) 97.7 F L 97.1 F L 96.8 F L Temperature Source Temporal Temporal Temporal Pulse Rate (60-100) 97 74 74 Pulse Location Monitor Monitor Monitor Respiratory Rate (12-18) 20 H Respiratory rate source Observation Oxygen Delivery Method Blood Pressure (90/60-120/80) 127/48 H 130/54 H 130/74 H Blood Pressure Mean 74 79 92 Source Monitor Monitor Monitor Position Blood Pressure Location History Since Last Visit- (Skip if this is Patient's initial visit) Have you changed medications since your No No No last visit? Any new allergies or adverse reactions No No No Had a fall/change in ADL's that may No No No increase risk of falls Signs or symptoms of abuse and/or No No No neglect since last visit Have you been in the hospital since your No No No last visit? Has dressing in place as prescribed Yes Yes Yes Has compression in place as prescribed Yes Yes Yes Has offloadiing in place as prescribed N/A N/A N/A Experienced any changes in pain level or No No No management Left Footwear Regular Shoe Regular Shoe Right Footwear Regular Shoe Regular Shoe Pain Scale: 0-10 Numeric Is Patient Pain Free? 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 ) Arrival Mode Ambulatory Ambulatory Transfer Assistance None None Patient Identification Verified (Name & Yes Yes ) Patient Requires Transmission-Based No No Precautions Safety Precautions NA Height and Weight Height Weight Weight in Pounds Body Mass Index (BMI) 40.6 40.6 BMI Classification Obese Obese [facility] - [facility] Vital Signs Temperature (97.8 F-99.1 F) 97.2 F L Temperature Source Temporal Pulse Rate (60-100) 90 78 Pulse Location Apical Monitor Respiratory Rate (12-18) 16 20 H Respiratory rate source Observation Observation Oxygen Delivery Method Room Air Blood Pressure (90/60-120/80) 153/60 H 131/57 H Blood Pressure Mean 91 81 Source Monitor Monitor Position Sitting Blood Pressure Location History Since Last Visit- (Skip if this is Patient's initial visit) Have you changed medications since your No No last visit? Any new allergies or adverse reactions No No Had a fall/change in ADL's that may No No increase risk of falls Signs or symptoms of abuse and/or No No neglect since last visit Have you been in the hospital since your No No last visit? Has dressing in place as prescribed Yes Yes Has compression in place as prescribed Yes Yes Has offloadiing in place as prescribed N/A N/A Experienced any changes in pain level or No management Left Footwear Regular Shoe Right Footwear Regular Shoe Pain Scale: 0-10 Numeric Is Patient Pain Free? Yes Yes WC - Nurse 1 - General Ulcer Measurement Start: 09/24/22 09:06 Freq: Status: Active Protocol: Activity Type Activity Date Activity User E-sign Co-sign Detail Recorded Client Recorded Date Recorded By Document 09/24/22 09:07 DL [id number] 09/24/22 09:13 DL Document 09/26/22 13:12 DL [id number] 09/26/22 13:13 DL Document 10/01/22 08:57 BMF [id number] 10/01/22 09:00 BMF Document 10/08/22 08:14 AK [id number] 10/08/22 08:15 AK Document 10/08/22 08:39 DL [id number] 10/08/22 08:43 DL Document 10/10/22 13:22 DL [id number] 10/10/22 13:24 DL Document 10/15/22 08:59 DL [id number] 10/15/22 09:01 DL 09/24/22 09/26/22 10/01/22 09:07 13:12 08:57 Wound Center Nurse 1 Lower Limb Edema Present Yes Right Calf (cm) 31.8 Right Ankle (cm) 25.5 Left Calf (cm) 39.2 39.4 39.5 Left Ankle (cm) 26.5 27.2 27 10/08/22 10/08/22 10/10/22 08:14 08:39 13:22 Wound Center Nurse 1 Lower Limb Edema Present Yes Right Calf (cm) Right Ankle (cm) Left Calf (cm) 38.3 38.4 38.5 Left Ankle (cm) 27.4 27.4 27 10/15/22 08:59 Wound Center Nurse 1 Lower Limb Edema Present Right Calf (cm) Right Ankle (cm) Left Calf (cm) 38 Left Ankle (cm) 26.4 CRYSTAL - Nurse 3 - General Ulcer D/C NN Start: 09/24/22 09:06 Freq: Status: Active Protocol: Activity Type Activity Date Activity User E-sign Co-sign Detail Recorded Client Recorded Date Recorded By Document 09/24/22 09:52 DL [id number] 09/24/22 09:53 DL Document 09/26/22 13:12 DL [id number] 09/26/22 13:13 DL Document 10/01/22 09:25 MW [id number] 10/01/22 09:26 MW Document 10/03/22 13:52 AK [id number] 10/03/22 13:53 AK Document 10/08/22 08:11 AK [id number] 10/08/22 08:14 AK Document 10/08/22 08:39 DL [id number] 10/08/22 08:43 DL Document 10/10/22 13:22 DL [id number] 10/10/22 13:24 DL Document 10/15/22 09:19 BMF [id number] 10/15/22 09:21 BMF 09/24/22 09/26/22 10/01/22 09:52 13:12 09:25 Wound Care Center Nurse 3 Left -Lotion applied to leg before No compression wrap -Multi-Layered Wrap Application Unna Boot - Unna Boot - Unna Boot - Left ($) Left ($) Left ($) -Tubular Bandage -Size of Tubigrip Used -Size E ($) -Other Treatment Response Procedure Procedure Tolerated Well Tolerated Well Vital Signs Temperature (97.8 F-99.1 F) 96.8 F L Temperature Source Temporal Pulse Rate (60-100) 68 Pulse Location Monitor Respiratory Rate (12-18) 18 Respiratory rate source Observation Oxygen Delivery Method Blood Pressure (90/60-120/80) 149/54 H Blood Pressure Mean 85 Source Monitor Position Pain Scale: 0-10 Numeric Is Patient Pain Free? Yes Yes Yes Teaching: Wound Center Compression Wraps & Stockings -Person Taught Patient -Teaching Method Discussion -Response to teaching Verbalize understanding WC - Visit Discharge Discharge Condition Stable Stable Stable Ambulatory Status Ambulatory Ambulatory Ambulatory Transportation Private Auto Private Auto Private Auto Accompanied by self Medication Reconcilliation completed & No provided to patient/care provider Clinical Summary of Care Provided Yes Notes: Dressing applied per Guerda Lowe today in clinic . 10/03/22 10/08/2210/08/23 13:52 08:11 08:39 Wound Care Center Nurse 3 Left -Lotion applied to leg before No No compression wrap -Multi-Layered Wrap Application Unna Boot - Unna Boot - Multi-Layer Left ($) Left ($) Comp - Left ($) -Tubular Bandage -Size of Tubigrip Used -Size E ($) -Other adaptic Treatment Response Procedure Tolerated Well Vital Signs Temperature (97.8 F-99.1 F) 97.7 F L 97.1 F L 96.8 F L Temperature Source Temporal Temporal Temporal Pulse Rate (60-100) 97 74 74 Pulse Location Monitor Monitor Monitor Respiratory Rate (12-18) 20 H Respiratory rate source Observation Oxygen Delivery Method Blood Pressure (90/60-120/80) 127/48 H 130/54 H 130/74 H Blood Pressure Mean 74 79 92 Source Monitor Monitor Monitor Position Pain Scale: 0-10 Numeric Is Patient Pain Free? Yes Yes Yes Teaching: Wound Center Compression Wraps & Stockings -Person Taught -Teaching Method -Response to teaching WC - Visit Discharge Discharge Condition Stable Stable Ambulatory Status Ambulatory Ambulatory Transportation Private Auto Private Auto Accompanied by Medication Reconcilliation completed & Yes provided to patient/care provider Clinical Summary of Care Provided Yes Notes: Superficial weeping area noted to ant ankle. spoke with Dr. Burrows and dressing changed to 3M with adaptic to weeping area for today. Pt has f/u on 10/10 for recheck. 10/10/22 10/15/22 13:22 09:19 Wound Care Center Nurse 3 Left -Lotion applied to leg before Yes compression wrap -Multi-Layered Wrap Application Multi-Layer Comp - Left ($) -Tubular Bandage Double Layer -Size of Tubigrip Used Size E -Size E ($) 2 -Other APPLIED PER DL TRACK REPAIR SUPERVISOR Treatment Response Procedure Procedure Tolerated Well Tolerated Well Vital Signs Temperature (97.8 F-99.1 F) Temperature Source Pulse Rate (60-100) 90 Pulse Location Apical Respiratory Rate (12-18) 16 Respiratory rate source Observation Oxygen Delivery Method Room Air Blood Pressure (90/60-120/80) 153/60 H Blood Pressure Mean 91 Source Monitor Position Sitting Pain Scale: 0-10 Numeric Is Patient Pain Free? Yes Yes Teaching: Wound Center Compression Wraps & Stockings -Person Taught -Teaching Method -Response to teaching WC - Visit Discharge Discharge Condition Stable Stable Ambulatory Status Ambulatory Ambulatory Transportation Private Auto Private Auto Accompanied by Medication Reconcilliation completed & provided to patient/care provider Clinical Summary of Care Provided Notes: Assessment/Plan Assessment/Plan (1) Venous stasis dermatitis of left lower extremity: CODE(S): I87.2 - Venous insufficiency (chronic) (peripheral) (2) Venous stasis ulcer: CODE(S): I83.009 - Varicose veins of unspecified lower extremity with ulcer of unspecified site; L97.909 - Non-pressure chronic ulcer of unspecified part of unspecified lower leg with unspecified severity QUALIFIERS: Venous stasis ulcer site: calf Varicose vein presence: with varicose veins Laterality: left Non-pressure ulcer stage: limited to breakdown of skin Qualified Code(s): I83.022 - Varicose veins of left lower extremity with ulcer of calf; L97.221 - Non-pressure chronic ulcer of left calf limited to breakdown of skin (3) Chronic venous hypertension w/ulcer and inflammation involv left side: CODE(S): I87.332 - Chronic venous hypertension (idiopathic) with ulcer and inflammation of left lower extremity; L97.929 - Non-pressure chronic ulcer of unspecified part of left lower leg with unspecified severity (4) Chronic venous insufficiency: CODE(S): I87.2 - Venous insufficiency (chronic) (peripheral) (5) Hypertension: CODE(S): I10 - Essential (primary) hypertension (6) History of poliomyelitis: CODE(S): Z86.12 - Personal history of poliomyelitis (7) History of TIA (transient ischemic attack): CODE(S): Z86.73 - Personal history of transient ischemic attack (TIA), and cerebral infarction without residual deficits (8) Autoimmune hemolytic anemia: (9) Cerebrovascular disease: CODE(S): I67.9 - Cerebrovascular disease, unspecified (10) Chronic kidney disease, stage III (moderate): CODE(S): N18.30 - Chronic kidney disease, stage 3 unspecified (11) 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 She has experienced venous ulcerations in her lower extremities in the past. Previous measures have included conservative treatment measures, including leg elevation, avoidance of idle standing and sitting, graduated compression stockings, weight control measures, active lifestyle, etc. These measures have previously resulted in successful healing of the patient's ulcerations. However, her ulcerations have been recurrent, requiring repeated and lengthy medical management. The patient recently presented with severe venous stasis changes in the left lower extremity, with lipodermatosclerosis and hyperpigmentation in the gaiter area. A protocol of conservative treatment measures was implemented. These measures were discussed with patient in detail. The patient was encouraged to sleep on a flat mattress at night. She has been encouraged to elevate her lower extremities is much as possible, even during daytime hours. As described to the patient, elevation is to be to heart level, or higher. This was to be implemented as much as possible each day. Prolonged idle sitting has been discouraged. Activity has been encouraged. The patient underwent endovenous laser ablation of the left great saphenous vein, the left small saphenous vein, and the left accessory saphenous vein in the proximal calf on August 06, 2022. The patient did well postoperatively. Approximately 5 weeks post-procedure, in late August, the patient developed recurrent venous stasis dermatitis and superficial ulcerations in the distal left gaiter area. She was seen and evaluated at the urgent care facility at the local [facility] facility. A prescription for Bactrim was prescribed, which has now been completed. She has been using collagen hydrogel and gauze topically. She also claims to have been elevating her legs and wearing graduated compression stockings on a daily basis. At this juncture, there appears to be a residual erythematous rash in the supramalleolar area of the left lower extremity, which is nearly circumferential. This may be a tenial or fungal rash. Therefore, the patient has been prescribed Lotrisone 1% cream, 45 g tube, to be applied topically twice daily. We are to continue conservative treatment measures, including leg elevation, avoidance of idle standing and sitting, with encouragement for activity. Compression is to be implemented by means of double layer Tubigrip's, and the equivalent of 20 to 40 mmHg compression. These are to be worn daily, from morning until bedtime. The patient is to return in 1 week for reevaluation. We will also seek to obtain pneumatic mechanical compression garments for the patient's lower extremities (Koya), which can be used by the patient long-term several times daily to enhance venous return and help to mitigate the chronic recurring manifestations in the patient's lower extremities relative to her chronic venous disease. Weight control measures have again been encouraged. A venous duplex examination will be considered in the near future to assess the results of her recent venous ablation procedure. Total time: 25 minutes
== END 2022-10-18 23:59 | disposition home or self-care (01) ==
LOC: WC 08:45
PROVIDERS: PCP Internal Medicine; Referring Provider Internal Medicine; Visit Provider Surgery
DX: I83.228 Varicose veins of left lower extremity with both ulcer of other part of lower extremity and inflammation (principal); D59.10 Autoimmune hemolytic anemia, unspecified; L97.822 Non-pressure chronic ulcer of other part of left lower leg with fat layer exposed; L97.222 Non-pressure chronic ulcer of left calf with fat layer exposed; M89.661 Osteopathy after poliomyelitis, right lower leg; I83.022 Varicose veins of left lower extremity with ulcer of calf; N18.30 Chronic kidney disease, stage 3 unspecified; Z79.82 Long term (current) use of aspirin; I12.9 Hypertensive chronic kidney disease with stage 1 through stage 4 chronic kidney disease, or unspecified chronic kidney disease; Z79.899 Other long term (current) drug therapy; K21.9 Gastro-esophageal reflux disease without esophagitis
CPT/HCPCS: 29580; 29581; 99213; G0463

== ENCOUNTER 2022-10-23 13:06 | Outpatient (RCR) | payer MEDICARE, BC, SELFPAY ==
[2022-10-19 00:19] VITALS: BP 131/57; PULSE 78; RESP 20; TEMP 36.2; BMI 40.6
[2022-10-23 13:13] VITALS: BP 145/54; PULSE 95; RESP 16; TEMP 36.8; BMI 40.6
--- NOTE | 2022-10-23 13:58 | PCM.WC.HP ---
History of Present Illness Date of Service: 10/23/22 Chief Complaint: Venous stasis ulceration, chronic venous insufficiency, varicose veins with inflammation and ulceration, venous hypertension with inflammation and ulceration, venous stasis dermatitis - Left lower extremity History of Wound: This is a 72-year-old female who has had chronic recurring ulcerations in her lower extremities. These are due to chronic venous disease. The ulcerations have been associated with swelling. The swelling is said to be worse late in the day. She was last treated for an ulcer in her left lower extremity last year, last seen at the [facility] on April 02, 2022. At that time, it was deemed that her left lower extremity venous ulceration had healed, and she was discharged with instructions to continue conservative treatment measures, including leg elevation, avoidance of idle standing and sitting, weight control measures, active lifestyle, and the use of graduated compression stockings of 20 to 30 mmHg, worn daily. The patient is ambulatory and claims to be relatively active. She sleeps on a flat mattress at night. However, she typically spends long hours each day sitting. She denies a history of thrombophlebitis. She is obese, with a BMI of 39.7. Her left lower extremity ulceration was noted to occur spontaneously approximately 1 week prior to presentation. 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, right lower leg Shortness of breath on exertion Stroke/cerebrovascular accident Varicose veins with inflammation Venous stasis dermatitis of both lower extremities Venous stasis dermatitis of left lower extremity Venous stasis dermatitis of left lower extremity Venous stasis ulcer Wears dentures Wears glasses Home Medications Lisinopril/Hydrochlorothiazide [Zestoretic 20/12.5 Tablet] 2 tab PO DAILY bp 06/17/17 [History Last Taken 08/06/22] aspirin 81 mg chewable tablet 81 mg PO DAILY HEART HEALTH 06/17/17 [History Last Taken 08/05/22] cholecalciferol (vitamin D3) 25 mcg (1,000 unit) capsule (Vitamin D3) 1,000 unit PO DAILY SUPPLEMENT 06/17/17 [History Last Taken 06/17/17] cetirizine 10 mg tablet (Zyrtec) 10 mg PO DAILY ALLERGIES 06/18/17 [History Last Taken 06/17/17] oxycodone-acetaminophen 5 mg-325 mg tablet (Percocet) 1 tab PO Q8H PRN pain 5 days #14 tabs 08/06/22 [Rx Last Taken Unknown] Allergy/AdvReac Type Severity Reaction Status Date / Time cephalexin [From Keflex] Allergy Hives Verified 08/06/22 09:07 Penicillins Allergy Hives Verified 08/06/22 09:07 Surgical History History of 3 sections Status post appendectomy Social History Smoking Status: Never smoker Vital Signs Vital Signs Vital Signs: 10/23/22 13:13 Temperature 98.2 F Temperature Source Temporal Pulse Rate 95 Respiratory Rate 16 Blood Pressure 145/54 H Blood Pressure Mean 84 Blood Pressure Source Monitor Blood Pressure Position Supine Blood Pressure Location Left Arm Oxygen Delivery Method Room Air Weight Weight: 214 lb 12.627 oz Body Mass Index (BMI) 40.6 Physical Exam Const alert, oriented x3, no apparent distress and well nourished Constitutional Narrative: The patient is obese, with a BMI of 39.7. General Appearance: cooperative, comfortable, well kempt and well developed Orientation / Consciousness: awake, oriented to person, oriented to place and oriented to time HEENT normocephalic and head/scalp atraumatic Head and Scalp: normal to inspection, normocephalic and atraumatic External Ear: external ears normal Eyes PERRL and EOMs intact bilaterally General Eye: normal appearance of both eyes Resp normal respiratory effort, normal air movement, no retractions and no use of accessory muscles Effort and Inspection: able to speak in complete sentences Extremity no calf tenderness General Extremity: Negative for clubbing or cyanosis Skin Wound Narrative: No significant swelling or edema are noted in the patient's lower extremities. There is no sign of infection or cellulitis in the left lower extremity the erythematous rash which had been previously noted in the left supramalleolar area is now resolved. There are no open wounds or ulcerations. There has been significant improvement. Neuro oriented x3, CN's II-XII intact bilaterally, moves all extremities and no focal motor deficits Sensorium / Orientation: awake, alert, oriented to person, oriented to place and oriented to time Psych Appearance: grossly normal and appropriate Attitude: calm Activity / Motor Behavior: appropriate eye contact Speech: normal speech Mood & Affect: euthymic mood Thought Process: normal thought process Thought Content: normal thought content Attention / Concentration: attention grossly intact Debridement Note Debridement Note No debridement was completed: No debridement was completed today (There are no open wounds or ulcerations.) Post-Debridement Measurements and Additional Note: Post-Debridement Measurements/Treatment - Nurse 1 - General Ulcer Assessment Start: 10/23/22 13:13 Freq: Status: Active Protocol: LOCO Activity Type Activity Date Activity User E-sign Co-sign Detail Recorded Client Recorded Date Recorded By Document 10/23/22 13:13 [id number] 10/23/22 13:17 10/23/22 13:13 - Today's Visit Information Type of service Follow-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 ) Arrival Mode Ambulatory Transfer Assistance None Accompanied by self Patient Identification Verified (Name & Yes ) Patient Requires Transmission-Based No Precautions Safety Precautions NA Height and Weight Body Mass Index (BMI) 40.6 BMI Classification Obese Vital Signs Temperature (97.8 F-99.1 F) 98.2 F Temperature Source Temporal Pulse Rate (60-100) 95 Pulse Location Apical Respiratory Rate (12-18) 16 Respiratory rate source Observation Oxygen Delivery Method Room Air Blood Pressure (90/60-120/80) 145/54 H Blood Pressure Mean 84 Source Monitor Position Supine Blood Pressure Location Left Arm History Since Last Visit- (Skip if this is Patient's initial visit) Have you changed medications since your No last visit? Any new allergies or adverse reactions No Had a fall/change in ADL's that may No increase risk of falls Signs or symptoms of abuse and/or No neglect since last visit Have you been in the hospital since your No last visit? Has dressing in place as prescribed Yes Has compression in place as prescribed No Has offloadiing in place as prescribed N/A Experienced any changes in pain level or No management Left Footwear Slipper Right Footwear Regular Shoe Pain Scale: 0-10 Numeric Is Patient Pain Free? Yes - Nurse 1 - General Ulcer Measurement Start: 10/23/22 13:13 Freq: Status: Active Protocol: Activity Type Activity Date Activity User E-sign Co-sign Detail Recorded Client Recorded Date Recorded By Document 10/23/22 13:13 MW [id number] 10/23/22 13:17 MW 10/23/22 13:13 Wound Center Nurse 1 Lower Limb Edema Present Yes Left Calf (cm) 41.5 Left Ankle (cm) 28.5 - Nurse 3 - General Ulcer D/C NN Start: 10/23/22 13:13 Freq: Status: Active Protocol: Activity Type Activity Date Activity User E-sign Co-sign Detail Recorded Client Recorded Date Recorded By Document 10/23/22 13:45 MW [id number] 10/23/22 13:45 MW 10/23/22 13:45 Wound Care Center Nurse 3 #2 L LE -Ulcer Cleansing Not Cleansed -Primary Dressing Applied Mepilex Border -Primary Dressing Covered/Secured with Dry Gauze -Mepilex Border 1 Treatment Response Procedure Tolerated Well Pain Scale: 0-10 Numeric Is Patient Pain Free? Yes Teaching: Wound Center Discharge Instructions -Person Taught Patient -Teaching Method Discussion -Response to teaching Verbalize understanding WC - Visit Discharge Discharge Condition Stable Ambulatory Status Ambulatory Transportation Private Auto Accompanied by self Medication Reconcilliation completed & No provided to patient/care provider Clinical Summary of Care Provided Yes Assessment/Plan Assessment/Plan (1) Venous stasis dermatitis of left lower extremity: CODE(S): I87.2 - Venous insufficiency (chronic) (peripheral) (2) Venous stasis ulcer: CODE(S): I83.009 - Varicose veins of unspecified lower extremity with ulcer of unspecified site; L97.909 - Non-pressure chronic ulcer of unspecified part of unspecified lower leg with unspecified severity QUALIFIERS: Venous stasis ulcer site: calf Varicose vein presence: with varicose veins Laterality: left Non-pressure ulcer stage: limited to breakdown of skin Qualified Code(s): I83.022 - Varicose veins of left lower extremity with ulcer of calf; L97.221 - Non-pressure chronic ulcer of left calf limited to breakdown of skin (3) Chronic venous hypertension w/ulcer and inflammation involv left side: CODE(S): I87.332 - Chronic venous hypertension (idiopathic) with ulcer and inflammation of left lower extremity; L97.929 - Non-pressure chronic ulcer of unspecified part of left lower leg with unspecified severity (4) Chronic venous insufficiency: CODE(S): I87.2 - Venous insufficiency (chronic) (peripheral) (5) Hypertension: CODE(S): I10 - Essential (primary) hypertension (6) History of poliomyelitis: CODE(S): Z86.12 - Personal history of poliomyelitis (7) History of TIA (transient ischemic attack): CODE(S): Z86.73 - Personal history of transient ischemic attack (TIA), and cerebral infarction without residual deficits (8) Autoimmune hemolytic anemia: (9) Cerebrovascular disease: CODE(S): I67.9 - Cerebrovascular disease, unspecified (10) Chronic kidney disease, stage III (moderate): CODE(S): N18.30 - Chronic kidney disease, stage 3 unspecified (11) 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 She has experienced venous ulcerations in her lower extremities in the past. Previous measures have included conservative treatment measures, including leg elevation, avoidance of idle standing and sitting, graduated compression stockings, weight control measures, active lifestyle, etc. These measures have previously resulted in successful healing of the patient's ulcerations. However, her ulcerations have been recurrent, requiring repeated and lengthy medical management. The patient recently presented with severe venous stasis changes in the left lower extremity, with lipodermatosclerosis and hyperpigmentation in the gaiter area. A protocol of conservative treatment measures was implemented. These measures were discussed with patient in detail. The patient was encouraged to sleep on a flat mattress at night. She has been encouraged to elevate her lower extremities is much as possible, even during daytime hours. As described to the patient, elevation is to be to heart level, or higher. This was to be implemented as much as possible each day. Prolonged idle sitting has been discouraged. Activity has been encouraged. The patient underwent endovenous laser ablation of the left great saphenous vein, the left small saphenous vein, and the left accessory saphenous vein in the proximal calf on August 06, 2022. The patient did well postoperatively. Approximately 5 weeks post-procedure, in late August, the patient developed recurrent venous stasis dermatitis and superficial ulcerations in the distal left gaiter area. She was seen and evaluated at the urgent care facility at the local [facility]. A prescription for Bactrim was prescribed, which was completed. She had been using collagen hydrogel and gauze topically. She also claims to have been elevating her legs and wearing graduated compression stockings on a daily basis. As of the patient's prior visit, the presence of a fungal rash was suspected. Lotrisone 1% cream was prescribed, and has been applied by the patient twice daily. As result, upon her return today, all erythema and rash has completely resolved. The appearance of the patient's distal left lower extremity is relatively normal. Therefore, the patient is to be discharged. She has been instructed to use the Lotrisone cream topically for an additional week, twice daily. She is to continue conservative treatment measures, including leg elevation, avoidance of idle standing and sitting, with encouragement for activity. Compression is to be implemented by means of graduated compression stockings of 20 to 30 mmHg, which the patient possesses. These are to be worn daily, from morning until bedtime. The patient has been fitted for [employer] pneumatic mechanical compression pumps. These are to be obtained in the very near future, and are to be worn for 1 hour each session, 2-3 times per day. It is anticipated that the mechanical compression pumps will be of benefit for the long-term. Weight control measures have again been encouraged. The patient has done well, is to be discharged, and is to follow-up henceforth on an as-needed basis. Total time: 26 minutes
== END 2022-10-23 16:38 | disposition home or self-care (01) ==
LOC: WC 13:06
PROVIDERS: PCP Internal Medicine; Referring Provider Internal Medicine; Visit Provider Surgery
DX: I87.2 Venous insufficiency (chronic) (peripheral) (principal); D59.10 Autoimmune hemolytic anemia, unspecified; Z68.41 Body mass index [BMI] 40.0-44.9, adult; N18.30 Chronic kidney disease, stage 3 unspecified; I12.9 Hypertensive chronic kidney disease with stage 1 through stage 4 chronic kidney disease, or unspecified chronic kidney disease; Z79.82 Long term (current) use of aspirin; Z86.12 Personal history of poliomyelitis; I10 Essential (primary) hypertension; Z79.899 Other long term (current) drug therapy; I83.12 Varicose veins of left lower extremity with inflammation; E66.9 Obesity, unspecified; K21.9 Gastro-esophageal reflux disease without esophagitis
CPT/HCPCS: 99213; G0463

== ENCOUNTER 2023-12-09 13:44 | Inpatient (IN) | payer MEDICARE, SELFPAY ==
[2023-12-09 13:46] VITALS: BP 107/64; PULSE 95; RESP 16; TEMP 36.3; O2SAT 100
[2023-12-09 13:48] VITALS: BMI 38.7
--- NOTE | 2023-12-09 15:11 | EX.ED.DYSGE1 ---
HPI History of Present Illness Chief Complaint: General Illness Narrative Narrative: 73-year-old female presents with a few weeks to 1 month of generalized weakness and fatigue. She relates history that in 2013, approximately 10 years ago, she had an autoimmune blood disorder/hemolytic anemia where her blood count got so low that she almost had a stroke. She relates history that about a month to a month and a half ago she had blood work done as an outpatient by her primary care and her count started to go down. Over the last few weeks she is felt more tired and fatigued. She denies any fevers or chills, no cough, no dysuria or hematuria. No chest pain or shortness of breath. Essentially, she states that she wanted to get her blood work checked again to make sure that her blood count was not low again causing her generalized weakness. [facility] Medical History Venous stasis dermatitis of left lower extremity Leg edema Leg swelling Venous stasis dermatitis of left lower extremity Chronic venous hypertension with inflammation involving left side Varicose veins with inflammation Chronic venous insufficiency Wears dentures Wears glasses Stroke/cerebrovascular accident History of hiatal hernia Gastric reflux Non-smoker Shortness of breath on exertion History of edema History of stress test Hypertension Chronic venous hypertension w/ulcer and inflammation involv left side Venous stasis dermatitis of both lower extremities Venous stasis ulcer Chronic venous insufficiency 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, right lower leg Chronic kidney disease, stage III (moderate) Cerebrovascular disease Home Medications ?Medication ?Instructions ?Recorded ?Last Taken ?Type Lisinopril/Hydrochlorothiazide 2 tab PO DAILY bp 06/17/17 08/06/22 History [Zestoretic /.5 Tablet] aspirin 81 mg chewable tablet 81 mg PO DAILY HEART HEALTH 06/17/17 08/05/22 History cholecalciferol (vitamin D3) 25 1,000 unit PO DAILY SUPPLEMENT 06/17/17 06/17/17 History mcg (1,000 unit) capsule (Vitamin D3) cetirizine 10 mg tablet (Zyrtec) 10 mg PO DAILY ALLERGIES 06/18/17 06/17/17 History oxycodone-acetaminophen 5 mg-325 1 tab PO Q8H PRN pain 5 days #14 08/06/22 Unknown Rx mg tablet (Percocet) tabs Allergy/AdvReac Type Severity Reaction Status Date / Time cephalexin (From Keflex) Allergy Hives Verified 12/09/23 15:07 Penicillins Allergy Hives Verified 12/09/23 15:07 Surgical History History of 3 sections Status post appendectomy Social History Smoking Status: Never smoker ROS ROS ED ROS Narrative Constitutional: No fever, no chills. Generalized weakness, fatigue. HEENT: No sore throat. No neck pain. No loss of vision. No rhinorrhea. Cardiovascular: No chest pain. No palpitations. No pedal edema. Respiratory: No cough, no shortness of breath. Abdominal: No abdominal pain. No nausea. No vomiting. Genitourinary: No dysuria. No hematuria. Musculoskeletal: No myalgias. No arthralgias. Neurologic: No headaches. No dizziness. No lightheadedness. Skin: No rash. No change in color. Psychiatric: No depression. No anxiety. EXAM Physical Exam Narrative Exam Narrative: Afebrile. Vital signs noted. HEENT: Normocephalic. Atraumatic. PERRL, EOMI. Neck soft and supple. No point tenderness or step off. Cardiovascular: Regular rate and rhythm. No murmurs, rubs, or gallops appreciated. Respiratory: No tachypnea. Lungs clear to auscultation bilaterally. Gastrointestinal: Abdomen soft, nontender, with normoactive bowel sounds. No rebound or guarding. Neurological: Awake. Alert. Nonfocal, nonlateralizing. Skin: No rash. Normal color. Mild subconjunctival pallor. Musculoskeletal: No pedal edema. Full range of motion extremities. Const Vital Signs: 12/09/23 13:46 12/09/23 14:45 12/09/23 15:05 Temperature 97.4 F L Temperature Source Temporal Pulse Rate 95 Respiratory Rate 16 Respiratory Effort Normal Normal Respiratory Pattern Normal Normal Blood Pressure 107/64 Blood Pressure Mean 78 Pulse Ox 100 Oxygen Delivery Method Room Air MDM MDM MDM Narrative Medical decision making narrative: Reportedly, patient had temperature elevated 100.4 degrees at the primary care provider's office, but here she is afebrile. I have low concern for sepsis. Differential diagnosis for generalized weakness does include but not limited to anemia requiring transfusion, exacerbation of her hemolytic anemia, dehydration versus electrolyte imbalance versus occult pneumonia or urinary tract infection, but she denies any other symptoms except for the weakness and fatigue. She denies other bleeding diathesis. I will check her CBC and CMP as well as a UA and a chest x-ray. I do not feel troponin is indicated as she is not having chest pain. I reviewed her laboratory work and she has a neutropenia of 3.3 which is new for her but nonspecific, hemoglobin 13.5, I do not think that she has exacerbation of an acute hemolytic anemia. Platelet count low at 102. Review of her CMP shows sodium low at 134 with a BUN elevated at 66 and an acute kidney injury with creatinine 3.37. Glucose elevated at 132 but she has normal anion gap of 8. AST of 48 which I also think is nonspecific. Repeat examination shows she feels slightly improved after approximately three quarters of a liter of IV fluids. Given her acute kidney injury., Neutropenia, and thrombocytopenia I do feel that she merits at least observation. I discussed patient with Dr. Benavides for observation on the general medical floor. She is in stable condition. History & Record Review Discussion w/independent historian: Patient and Family (Son) Additional record(s) reviewed:: Prior labs Lab Data Attestation: I reviewed the patient's lab results. Labs: Laboratory Results - last 24 hr 12/09/23 15:15 WBC 3.3 L RBC 4.30 Hgb 13.5 Hct 42.6 MCV 99.1 H MCH 31.4 MCHC 31.7 L RDW Std Deviation 55.5 H RDW Coeff of Yamile 15.4 H Plt Count 102 L MPV 9.2 Immature Gran % (Auto) 0.900 Neut % (Auto) 69.9 Lymph % (Auto) 24.4 [place] % (Auto) 2.7 Eos % (Auto) 1.5 Baso % (Auto) 0.6 Absolute Neuts (auto) 2.3 Absolute Lymphs (auto) 0.81 L Nucleated RBC % 0 Sodium 134 L Potassium 3.6 Chloride 102 Carbon Dioxide 24.0 Anion Gap 8 BUN 66 H Creatinine 3.37 H Estim Creat Clear Calc 15.01 Est GFR (MDRD) Af Amer 17 L Est GFR (MDRD) Non-Af 14 L BUN/Creatinine Ratio 19.6 Glucose 132 H Calcium 8.9 Total Bilirubin 1.40 H AST 48 H ALT 23 Alkaline Phosphatase 81 Total Protein 6.4 Albumin 2.9 L Globulin 3.5 Albumin/Globulin Ratio 0.8 L Radiography Diagnostic Testing: Clinical Impression(s) from Imaging Studies Chest X-Ray 12/09/23 15:30 IMPRESSION: Moderate-sized hiatal hernia. The lungs are clear. Electronically Signed: Victor Manuel Gerber MD at 15:44 EDT , Discharge Plan Dx/Rx/DC Orders Clinical Impression: Acute kidney injury, Generalized weakness, Neutropenia Disposition Disposition: Acute [facility]
[2023-12-09] MEDS: 0.9% Normal Saline (1000mL) 1,000 ML 1000 ML IV (15:14)
--- NOTE | 2023-12-09 15:30 | RAD_ITS ---
STUDY: X-RAY CHEST REASON FOR EXAM: Female, 73 years old. CAD TECHNIQUE: Single AP portable view of the chest. COMPARISON: None. FINDINGS: The lungs are clear and expanded. There is no demonstrated pleural abnormality. Normal size heart. Normal mediastinum and jennifer. Normal visualized pulmonary arteries. There is atherosclerotic calcification of the aortic arch with tortuosity. Normal visualized thoracic spine. Normal visualized ribs, clavicles, and shoulders. Moderate-sized hiatal hernia. RAD/Chest 1 View (Portable) IMPRESSION: Moderate-sized hiatal hernia. The lungs are clear. Electronically Signed: Victor Manuel Gerber MD at 15:44 EDT ,
[2023-12-09 15:36] LABS: Absolute Lymphocyte Count 0.81 X10^3/uL (0.83-4.51); Absolute Neutrophil Count 2.3 X10^3/uL (2.0-7.7); Basophil# 0.02 X10^3/uL; Basophil% 0.6 % (0-1); Eosinophil# 0.05 X10^3/uL; Eosinophils% 1.5 % (0-5); Hematocrit 42.6 % (37-47); Hemoglobin 13.5 g/dL (12.0-15.0); Lymphocyte # 0.81 X10^3/ul (0.83-4.51); Lymphocyte % 24.4 % (19-41); Mean Corp Hgb Conc 31.7 g/dL (32-36); Mean Corpuscular Hgb 31.4 pg (27.0-32.0); Mean Corpuscular Volume 99.1 fL (81-99); Mean Platelet Vol. 9.2 fl (6.2-12.0); Monocyte# 0.09 X10^3/uL; Monocyte% 2.7 % (0-10); NRBC Flagged by Analyzer 0 % (0-5); Neutrophil # 2.32 X10^3/uL (2.7-7.7); Neutrophil % 69.9 % (47-70); POSITIVE MORPHOLOGY YES; Platelet Count 102 K/mm3 (150-450); RBC Distribution Width CV 15.4 % (11.6-14.6); RBC Distribution Width SD 55.5 fl (35.1-43.9); White Blood Count 3.3 K/mm3 (4.4-11.0)
[2023-12-09 15:38] LABS: Differential Indicated SCAN CRITERIA MET
[2023-12-09 15:50] LABS: ALB/GLOB Ratio 0.8 RATIO (0.9-2.4); AST(SGOT) 48 U/L (15-37); Alanine Aminotransfer ALT/SGPT 23 U/L (13-56); Albumin, Serum 2.9 g/dL (3.2-5.0); Alkaline Phosphatase 81 U/L (45-117); Anion Gap 8 (5-15); BUN 66 mg/dL (7-18); BUN/Creat Ratio 19.6 RATIO (10-20); Calcium,Total 8.9 mg/dL (8.5-10.1); Chloride 102 mmol/L (98-107); Creatinine, Serum 3.37 mg/dL (0.55-1.02); EST Glomerular Filtration Rate 14 mL/min (>60); Est Glom Filt Rate - Afr Amer 17 mL/min (>60); Estimated Creatinine Clearance 15.01 ml/min; Globulin 3.5 g/dL (2.2-4.2); Glucose 132 mg/dL (74-106); Potassium 3.6 mmol/L (3.5-5.1); Protein, Total 6.4 g/dL (6.4-8.2); Sodium Level 134 mmol/L (136-145)
[2023-12-09 16:00] VITALS: BP 134/78; PULSE 89; RESP 16; O2SAT 99
[2023-12-09 16:38] VITALS: BP 142/78; PULSE 64; RESP 16; TEMP 36.6; O2SAT 98
[2023-12-09 16:54] LABS: Differential Comment SCANNED
[2023-12-09 18:00] VITALS: BP 110/79; PULSE 70; RESP 16; O2SAT 97
--- NOTE | 2023-12-09 18:59 | HP.PCM.HOS_ITS ---
HPI - General General Date of Admission: 12/09/23 Date of Service: 12/09/23 Chief Complaint: Generalized weakness fatigue felt like similar to autoimmune hemolytic anemia about 10 years HPI Narrative DAVID PATTON, is a 73 F who came to ED for generalized weakness, fatigue for last 3 weeks to about 1 month. Denies any fever or chills but she feels extremely tired and fatigue. She had autoimmune hemolytic anemia diagnosed about [address] Tay but after that she did good and was discharged from hematology service and she follows [facility]. This time her H&H is in normal range but mild thrombocytopenia and leukopenia with lymphocytopenia She also has chronic ongoing left leg ulcer for about 1 month. Gradually it is worsening and she does not go [facility], last seen in October 2022. She has a history of varicose vein and venous valves incompetence and had surgery in the past. History of venous hypertension and stasis dermatitis. Erythema and redness and mild swelling and edema up to left knee. Patient also has elevated creatinine more than her baseline therefore admitted with KATH on CKD [facility] Medical History Venous stasis dermatitis of left lower extremity Leg edema Leg swelling Venous stasis dermatitis of left lower extremity Chronic venous hypertension with inflammation involving left side Varicose veins with inflammation Chronic venous insufficiency Wears dentures Wears glasses Stroke/cerebrovascular accident History of hiatal hernia Gastric reflux Non-smoker Shortness of breath on exertion History of edema History of stress test Hypertension Chronic venous hypertension w/ulcer and inflammation involv left side Venous stasis dermatitis of both lower extremities Venous stasis ulcer Chronic venous insufficiency 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, right lower leg Chronic kidney disease, stage III (moderate) Cerebrovascular disease Home Medications ?Medication ?Instructions ?Recorded ?Last Taken ?Type Lisinopril/Hydrochlorothiazide 2 tab PO DAILY bp 06/17/17 12/08/23 History [Zestoretic 20/12.5 Tablet] aspirin 81 mg chewable tablet 81 mg PO DAILY HEART HEALTH 06/17/17 12/08/23 History cholecalciferol (vitamin D3) 25 1,000 unit PO DAILY SUPPLEMENT 06/17/17 12/08/23 History mcg (1,000 unit) capsule (Vitamin D3) cetirizine 10 mg tablet (Zyrtec) 10 mg PO DAILY ALLERGIES 06/18/17 12/08/23 History oxycodone-acetaminophen 5 mg-325 1 tab PO Q8H PRN pain 5 days #14 08/06/22 Unknown Rx mg tablet (Percocet) tabs Allergy/AdvReac Type Severity Reaction Status Date / Time cephalexin (From Keflex) Allergy Hives Verified 12/09/23 15:07 Penicillins Allergy Hives Verified 12/09/23 15:07 Surgical History History of 3 sections Status post appendectomy Social History Smoking Status: Never smoker ROS ROS Narrative Constitutional: Reports severe fatigue and weakness. No fever. HEENT: Reports systems reviewed and no addt'l complaints, except as documented Respiratory/Chest: No acute shortness of breath or respiratory distress or wheezing. CVS: Denies chronic heart disease. No chest pain Gastrointestinal: Denies coffee ground emesis, hematemesis or vomiting. Sometimes loose bowel movement 1 or 2 times a day in last 1 week Genitourinary: Denies burning urination or new urinary tract symptoms Musculoskeletal: Denies acute joint pain or limited range of motion. No acute injury Neurologic: Denies seizure-like symptoms. skin: As described in HPI. Endocrinology: Reports systems reviewed and no addt'l complaints, except as documented Hematologic/Lymphatic: History of autoimmune hemolytic anemia as described in HPI. Reports systems reviewed and no addt'l complaints, except as documented Rest 14 ROS are negative except as mentioned in HPI Vital Signs Vital Signs Vital Signs: 12/09/23 13:46 12/09/23 14:45 12/09/23 15:05 Temperature 97.4 F L Temperature Source Temporal Pulse Rate 95 Respiratory Rate 16 Respiratory Effort Normal Normal Respiratory Pattern Normal Normal Blood Pressure 107/64 Blood Pressure Mean 78 Pulse Ox 100 Oxygen Delivery Method Room Air 12/09/23 16:00 12/09/23 16:38 12/09/23 18:00 Temperature 97.8 F Temperature Source Pulse Rate 89 64 70 Respiratory Rate 16 16 16 Respiratory Effort Respiratory Pattern Blood Pressure 134/78 H 142/78 H 110/79 Blood Pressure Mean 96 99 89 Pulse Ox 99 98 97 Oxygen Delivery Method Nasal Cannula Room Air Weight Weight: 205 lb 4.006 oz Body Mass Index (BMI) 38.7 Physical Exam Narrative General: Alert, Oriented x3, Cooperative, BMI 38.8 kg/m? HEENT: Atraumatic, PERRLA, EOMI, Normocephalic Oral: No Gingival or Mucosal Lesions/ Ulcerations Neck: Supple, No JVD, Negative Carotid Bruits Chest wall/Lungs: Air entry diminished in bilateral lung bases. No crepitation/rhonchi Cardiovascular: Regular rate, Regular Rhythm, Normal S1, Normal S2, systolic murmur present Abdomen: Bowel Sounds Present, Soft, Non Tender, Non-Distended : No dysuria. No renal angle tenderness. No suprapubic tenderness. Extremities: Bilateral leg edema, left more than right. Capillary Refill Less than 3 Seconds Skin: Multiple superficial ulcer over left leg along great saphenous vein with lymphedema. Wet,, clear fluid oozing and drainage. Musculoskeletal: No Tenderness to Palpation of Joints or Extremities. ROM restricted over left ankle Neurological: Cranial nerves II-XII grossly intact, DTR 2+/4. No acute focal neurological deficit. Psych/Mental Status: Flat affect Results Lab / Micro Data 12/09/23 15:15 12/09/23 15:15 Labs: Laboratory Results - last 24 hr 12/09/23 15:15: WBC 3.3 L, RBC 4.30, Hgb 13.5, Hct 42.6, MCV 99.1 H, MCH 31.4, M CHC 31.7 L, RDW Std Deviation 55.5 H, RDW Coeff of [place] 15.4 H, Plt Count 102 L, MPV 9.2, Immature Gran % (Auto) 0.900, Neut % (Auto) 69.9, Lymph % (Auto) 24.4, [place] % (Auto) 2.7, Eos % (Auto) 1.5, Baso % (Auto) 0.6, Absolute Neuts (auto) 2.3, Absolute Lymphs (auto) 0.81 L, Nucleated RBC % 0, Differential Comment SCANNED, Sodium 134 L, Potassium 3.6, Chloride 102, Carbon Dioxide 24.0, Anion Gap 8, BUN 66 H, Creatinine 3.37 H, Estim Creat Clear Calc 15.01, Est GFR (MDRD) Af Amer 17 L, Est GFR (MDRD) Non-Af 14 L, BUN/Creatinine Ratio 19.6, Glucose 132 H, Calcium 8.9, Total Bilirubin 1.40 H, AST 48 H, ALT 23, Alkaline Phosphatase 81, Total Protein 6.4, Albumin 2.9 L, Globulin 3.5, Albumin/Globulin Ratio 0.8 L Imaging Radiology Impression Chest X-Ray 12/09/23 15:30 IMPRESSION: Moderate-sized hiatal hernia. The lungs are clear. Electronically Signed: Victor Manuel Gerber MD at 15:44 EDT , Assessment & Plan Assessment/Plan (1) Acute kidney injury: (2) Venous stasis ulcer: QUALIFIERS: Venous stasis ulcer site: calf Varicose vein presence: with varicose veins Laterality: left Non-pressure ulcer stage: l imited to breakdown of skin Qualified Code(s): I83.022 - Varicose veins of left lower extremity with ulcer of calf; L97.221 - Non-pressure chronic ulcer of left calf limited to breakdown of skin (3) Cellulitis: PLAN: Plan This is 73-year-old female came to ED for generalized weakness and fatigue and found to have KATH on CKD and left leg cellulitis with venous ulcer. 1. KATH on CKD stage IIIb: Patient baseline creatinine runs around 1.2 as per July 2022. Patient came to ED with BUN 66, creatinine 3.37, sodium 134 mild hyponatremia, potassium 3.6. Bicarb normal. Anion gap normal. Patient started on IV fluid normal saline. Patient does not give history of significant fluid loss from vomiting or diarrhea but may be fluid loss from venous ulcer/lymphedema. Monitor kidney function. Monitor intake and output. 2. Left leg subacute venous ulcer with left lower leg cellulitis: Venous duplex of lower extremities ordered. Wound nurse consult. Podiatry consulted. Left leg elevation. Left foot and ankle x-ray ordered. Patient started on IV aztreonam and linezolid to cover gram-positive and gram-negative. Patient has allergy to penicillin and Keflex with hives. ID further consulted. Pharmacy to alter the dose as per creatinine function 3. Mild leukopenia with thrombocytopenia with history of chronic autoimmune hemolytic anemia: Platelet count is 102,000 with baseline around 250,000 in July 2022. Patient also had normal leukocyte count before. I suspect it is from infection. Monitor CBC count. 4. Large hiatal hernia: On PPI 5. Obesity grade 3: BMI 38.8 kg/m? weight loss recommendation. 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 Hypertension-blood pressure is controlled. Hold HCTZ/lisinopril for KATH. If needed alternate antihypertensive medication 7. History of poliomyelitis with residual right leg shortening 8. Mild hyperglycemia: Glucose is 132. Patient does not have a history of diabetes mellitus. A1c tomorrow AM. DVT prophylaxis SC Lovenox Laboratory Results 12/09/23 15:15: WBC 3.3 L, RBC 4.30, Hgb 13.5, Hct 42.6, MCV 99.1 H, MCH 31.4, M CHC 31.7 L, RDW Std Deviation 55.5 H, RDW Coeff of [place] 15.4 H, Plt Count 102 L, MPV 9.2, Immature Gran % (Auto) 0.900, Neut % (Auto) 69.9, Lymph % (Auto) 24.4, [place] % (Auto) 2.7, Eos % (Auto) 1.5, Baso % (Auto) 0.6, Absolute Neuts (auto) 2.3, Absolute Lymphs (auto) 0.81 L, Nucleated RBC % 0, Differential Comment SCANNED, Sodium 134 L, Potassium 3.6, Chloride 102, Carbon Dioxide 24.0, Anion Gap 8, B UN 66 H, Creatinine 3.37 H, Estim Creat Clear Calc 15.01, Est GFR (MDRD) Af Amer 17 L, Est GFR (MDRD) Non-Af 14 L, BUN/Creatinine Ratio 19.6, Glucose 132 H, Calcium 8.9, Total Bilirubin 1.40 H, AST 48 H, ALT 23, Alkaline Phosphatase 81, Total Protein 6.4, Albumin 2.9 L, Globulin 3.5, Albumin/Globulin Ratio 0.8 L Charges/Coding Visit Charges Inpatient E&M: 37391 Init Hosp L3 Procedures Hospitalists Procedures: [id number] Advncd Care Plan 30 Min
[2023-12-09 19:00] VITALS: BP 111/46; PULSE 89; RESP 18; TEMP 36.9; O2SAT 96
--- NOTE | 2023-12-09 19:29 | VDLE_ITS ---
Reason For Study: Bilateral leg pain RIGHT LEFT GSV is normal. CFV is compressible, spontaneous, phasic, CFV is compressible, spontaneous, phasic, competent, and demonstrates normal competent and demonstrates normal augmentation. augmentation. FV is compressible, spontaneous, phasic, FV is compressible, spontaneous, phasic, competent and demonstrates normal competent and demonstrates normal augmentation. augmentation. T/P Trunk is compressible. POP V is compressible, spontaneous, phasic, PTV is compressible. competent and demonstrates normal LT PerV is compressible. augmentation. PopV is partially compressible with bright T/P Trunk is compressible. intraluminal echoes consistent with Chronic PTV is compressible. DVT. RT PerV is compressible. GSV is absent s/p previous ablation. Procedure This is a venous duplex using B-mode, color Acute deep vein thrombosis is noted in the flow and spectral Doppler. left GastrocV. It is NONCOMPRESSIBLE. Exam performed portable in ICU/CCU. A preliminary report was called and/or faxed to [facility]. VL/Venous Duplex US - [place] Extrem Interpretation Summary Acute deep vein thrombosis is noted in the left gastrocnemius vein. Chronic marlon ous changes are noted in the left popliteal vein, which is partially compressible and demonstrates br ight intraluminal echogenicity. The remainder of the left lower extremity deep venous system is p atent and compressible. Deep veins of the right lower extremity are patent and compressib le segmentally. There is no evidence of right lower extremity deep vein thrombosis. Valvular competen ce appears intact within the proximal deep venous systems bilaterally. The right great saphenous vein appears patent and compressible segmentally. The left great saphenous vein is absent, consiste nt with a previous venous ablation procedure. Ordering Physician: Skip Benavides Referring Physician: Jeferson Vega M.D. Performed By: Neda Macdonald RVT
[2023-12-09 19:40] VITALS: BMI 38.3
[2023-12-09 19:53] LABS: Phosphorus 2.6 mg/dL (2.5-4.9)
[2023-12-09 19:54] VITALS: BMI 38.3
[2023-12-09 20:29] VITALS: RESP 15
--- NOTE | 2023-12-09 20:55 | RAD_ITS ---
STUDY: X-RAY - LEFT FOOT CLINICAL: Female, 73 years old. Left leg ulcer. TECHNIQUE: 3 views of the left foot. COMPARISON: None. FINDINGS: There is mild degenerative arthrosis at the tibiotalar, talonavicular, and subtalar joints. There is a 1.3 cm smooth ossific fragment inferior to the distal fibula, probably the sequelae of a remote avulsion injury. Intact talus, calcaneus, and tarsal bones. There is a small plantar calcaneal spur. There is an os trigonum. Normal visualized calcaneocuboid, tarsal and tarsometatarsal articulations. Normal metatarsi. There is mild degenerative arthrosis at the first MTP joint. Normal tibial and fibular sesamoid bones. Normal interphalangeal joint of the great toe. Normal phalanges of the great toe. Normal second through fifth metatarsophalangeal joints. Normal interphalangeal joints and phalanges of the lesser toes. There is soft tissue swelling surrounding the ankle. 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 1.3 cm smooth ossific fragment inferior to the distal fibula, probably the sequelae of a remote avulsion injury. Small plantar calcaneal spur. Soft tissue swelling surrounding the ankle. Electronically Signed: Carlos Puentes MD at 8:15 EDT ,
[2023-12-09] MEDS: Aztreonam 2 GM in 0.9% Normal Saline (100mL MB+) 100 ML IV (22:37)
[2023-12-09] MEDS: 0.9% Normal Saline (250mL Bag) 250 ML 15 ML IV (22:37)
[2023-12-09] MEDS: Linezolid 600 MG 600 MG/300 ML BAG 200 MG IV (23:33)
[2023-12-10] VITALS (33 sets, daily range): BP systolic 86–121; BP diastolic 35–76; PULSE 54–87; RESP 15–27; TEMP 36.2–39.6; O2SAT 93–100; BMI 40.1
[2023-12-10] MEDS: Acetaminophen 325 MG Tablet 650 MG PO (02:24)
--- NOTE | 2023-12-10 02:37 | PCM.HOSP.N ---
Hospitalist Note Called for oral temp of 103 and a blood pressure of 104/44. Patient has been received Azactam and Zyvox. Will transition from Zyvox to vancomycin since Zyvox is not bacteriocidal and is only bacteriostatic in case patient is bacteremic. Stat blood cultures (unfortunately antibiotics and already been given). Check wound cultures and MRSA wound, check procalcitonin. Check lactic acid. Baseline serum creatinine appears to be between 1.1 and 1.3. Serum creatinine on presentation was 3.37 and patient only received 1 L IV fluids. Will give 2 L bolus and then run fluids at 75 cc/h. Check COVID-19 with fever.
[2023-12-10] MEDS: 0.9% Normal Saline (1000mL) 1,000 ML 999 ML IV ×2 (02:54→03:56)
[2023-12-10 03:52] LABS: Mucous, Urine 0 SEEN /hpf (<or=2+); Red Blood Cells-Urine 0 SEEN /hpf (0-5)
[2023-12-10 03:57] LABS: Anion Gap 4 (5-15); BUN 62 mg/dL (7-18); BUN/Creat Ratio 23.7 RATIO (10-20); Calcium,Total 7.8 mg/dL (8.5-10.1); Chloride 107 mmol/L (98-107); Creatinine, Serum 2.62 mg/dL (0.55-1.02); EST Glomerular Filtration Rate 19 mL/min (>60); Est Glom Filt Rate - Afr Amer 23 mL/min (>60); Estimated Creatinine Clearance 19.19 ml/min; Glucose 104 mg/dL (74-106); Potassium 3.4 mmol/L (3.5-5.1); Sodium Level 135 mmol/L (136-145)
[2023-12-10 04:04] LABS: Lactic Acid 0.8 mmol/L (0.4-1.9)
[2023-12-10 04:06] LABS: Procalcitonin 1.13 ng/mL (0.00-0.09)
[2023-12-10 04:14] LABS: Color, Urine Yellow (Yellow); Glucose, Dipstick Normal (Normal); Ketone-Dipstick Negative (Negative); Leukocyte Esterase-Dipstick 500 /ul (Negative); Nitrite-Dipstick Negative (Negative); Occult Blood-Urine 25 /ul (Negative); Protein-Dipstick 30 mg/dl (Negative); Urine Bilirubin Dipstick Negative (Negative); Urine Clarity Sl. Cloudy (Clear); Urine Urobilinogen 1 mg/dl (Normal)
[2023-12-10 04:27] LABS: Osmolality, Urine 492 mOsm/KG
[2023-12-10 04:36] LABS: Renal Epithelial Cells 0-5 SEEN /hpf (0-5); Squamous Epithelial Cells - UA 0-5 SEEN /hpf (5-10); White Blood Cells 50-100 SEEN /hpf (0-5)
--- NOTE | 2023-12-10 04:36 | NURSING ---
LABS REDRAWN AT THIS TIME. 2ND NS IV BOLUS CONTINUES TO INFUSE. PT IS ALERT AND DENIES C/O PAIN OR SOB. ORAL TEMP HAS IMPROVED TO 99.5. WILLL CONTINUE TO MONITOR VS AND LAB RESULTS.
[2023-12-10 04:37] LABS: Absolute Lymphocyte Count 1.53 X10^3/uL (0.83-4.51); Absolute Neutrophil Count 4.1 X10^3/uL (2.0-7.7); Basophil# 0.01 X10^3/uL; Basophil% 0.2 % (0-1); Eosinophil# 0.13 X10^3/uL; Eosinophils% 2.2 % (0-5); Lymphocyte # 1.53 X10^3/ul (0.83-4.51); Lymphocyte % 25.3 % (19-41); Mean Corpuscular Hgb 32.4 pg (27.0-32.0); Mean Corpuscular Volume 101.4 fL (81-99); Mean Platelet Vol. 8.6 fl (6.2-12.0); Monocyte# 0.23 X10^3/uL; Monocyte% 3.8 % (0-10); NRBC Flagged by Analyzer 0 % (0-5); Neutrophil # 4.05 X10^3/uL (2.7-7.7); POSITIVE COUNT YES; POSITIVE MORPHOLOGY YES; Platelet Count 151 K/mm3 (150-450); RBC Distribution Width CV 15.4 % (11.6-14.6); RBC Distribution Width SD 56.2 fl (35.1-43.9); Red Blood Count 1.48 M/mm3 (4.2-5.4)
[2023-12-10 04:38] LABS: Bacteria 1+ /hpf (None Seen); Transitional Epithelial - Ur 0 SEEN /hpf (0-5)
[2023-12-10 04:40] LABS: Protein, Urine (Random) 46.3 mg/dL (<11.9); Protein:Creat Ratio 239 mg/g CRE (0-200); Urine Sodium 48 mmol/L (Not Establ.)
[2023-12-10 04:41] LABS: Differential Indicated SCAN CRITERIA MET
[2023-12-10 04:45] LABS: Hemoglobin 4.8 g/dL (12.0-15.0)
--- NOTE | 2023-12-10 05:09 | PCM.HOSP.N ---
Hospitalist Note Called due to hemoglobin of 4.8 with a repeat verified. Patient has a history of autoimmune hemolytic anemia in 2013 and was treated by Dr. Mckeon at [facility]. Initial bilirubin was mildly elevated at 1.4 will repeat stat check reticulocyte count, peripheral smear and Devonte test stat. No signs of bleeding. Rectal exam performed and stool is brown. Patient without any nausea or hematemesis. No back pain. Takes only aspirin, will hold. 4 units of packed red blood cells ordered. Blood pressure currently 86/40 improved after IV fluids but I suspect this will only be transient and will need blood transfusion ultimately to improve. If labs come back consistent with hemolytic anemia will consult hematology. Depending on time to obtain a blood may need to place patient on pressors temporarily to maintain maps greater than 65. Patient is mentating well. Denies any symptoms. Will try to review previous records in [facility].
[2023-12-10 05:10] LABS: Platelet Count 165 K/mm3 (150-450); RET-HE 30.9 pg (30-35); Reticulocyte Count 6.31 % (0.5-1.5)
[2023-12-10 05:23] LABS: AST(SGOT) 40 U/L (15-37); Alanine Aminotransfer ALT/SGPT 12 U/L (13-56); Albumin, Serum 2.2 g/dL (3.2-5.0); Alkaline Phosphatase 62 U/L (45-117); Bilirubin, Direct 0.31 mg/dL (0.00-0.30); Globulin 2.7 g/dL (2.2-4.2); Protein, Total 4.9 g/dL (6.4-8.2)
--- NOTE | 2023-12-10 05:24 | NURSING ---
PT BEING TRANSFERRED TO ICU BED #3 AT THIS TIME FOR REPEAT LOW HGB AND HYPOTENSION. ASSISTED DR MCCORMACK WITH RECTAL EXAM, NO S/S OF ANY BLEEDING. PT DENIES C/O PAIN OR SOB. PT REMAINS ALERT X 3. PLACED ON 2L N/C PER PROTOCOL. ABD SOFT. CALLED PT'S SON (JUICE) AND INFORMED OF CHANGE OF STATUS AND TRANSFER TO ICU. SON AND PT DENY ANY QUESTIONS AT THIS TIME.
[2023-12-10] MEDS: Vancomycin HCl 1,500 MG in 0.9% Normal Saline (500mL Bag) 500 ML 250 MG IV (05:33)
[2023-12-10] MEDS: 0.9% Normal Saline (1000mL) 1,000 ML 75 ML IV (05:36)
--- NOTE | 2023-12-10 05:40 | NURSING ---
Pts map and blood pressures were dropping. Pts covid, RSV and Flu PCR came back negative. Lab called and said the pts hgb dropped to 5 from 13.5 on 12/09/23 @ 1515. Lab said they would do a redraw because of the massive drop. I let Dr. Puentes know and told her I would let her know what the hgb redraw was and get back to her. She was okay with that. It came back at 4.8. she ordered 4 units of blood, 2 to infuse and 2 on hold. She came to see the patient and transferred the patient to ICU and put in new orders. report was called, pt was transferred to ICU room 3 and primary nurse called family.
[2023-12-10 05:47] LABS: LDH 593 U/L (84-246)
[2023-12-10 05:55] LABS: Ferritin 1756 ng/mL (8-252); Iron 39 ug/dL (50-170); Iron Binding Capacity,Total 144 ug/dL (250-450); PERCENT IRON SATURATION 27.1 % (15.0-55.0)
[2023-12-10] MEDS: 0.9% Saline Lock 10 ML Syringe IV (05:55)
--- NOTE | 2023-12-10 06:05 | PCM.RX.CS ---
Consult Antibiotic Management Pharmacy has been consulted to manage selected antibiotic: Vancomycin Type of Intervention Type of Consult: New start Suspected Infection Suspected Infection: Skin/Soft tissue Labs Labs: Sodium 135 mmol/L (136-145) L 12/10/23 03:32 Potassium 3.4 mmol/L (3.5-5.1) L 12/10/23 03:32 Chloride 107 mmol/L (98-107) 12/10/23 03:32 Carbon Dioxide 24.0 mmol/L (21.0-32.0) 12/10/23 03:32 Anion Gap 4 (5-15) L 12/10/23 03:32 BUN 62 mg/dL (7-18) H 12/10/23 03:32 Creatinine 2.62 mg/dL (0.55-1.02) H 12/10/23 03:32 Est GFR (MDRD) Af Amer 23 mL/min (>60) L 12/10/23 03:32 Est GFR (MDRD) Non-Af 19 mL/min (>60) L 12/10/23 03:32 BUN/Creatinine Ratio 23.7 RATIO (10-20) H 12/10/23 03:32 Glucose 104 mg/dL (74-106) 12/10/23 03:32 Microbiology Microbiology: Microbiology 12/10/23 03:01 Mucosa - Nasopharyngeal SARS-CoV-2, Influenza & RSV (PCR) - Final Dosing Weight Weight used for dosin.6 kg Estimated Creatinine Clearance Estimated Creatinine Clearance: 19+ Goal Trough Goal Trough: 15-20 mcg/mL Pharmacy Plan for Drug Dosing Pharmacy Plan for Drug Dosing: Vancomycin 1500mg initial dose was given 12/10/23 @0533. Renal function has improved markedly over a few hours, so even though current CrCl=19, will assume continued improvement and will dose at 750mg q24hrs. A trough level will be drawn prior to the third total dose. Pharmacy Service will continue to monitor and adjust dosing as required. Follow-Up Labs Follow-Up Labs: Trough: Vancomycin Date/Time Labs Ordered Labs to be done on [date and time ordered]: 12/12/23 @0500
[2023-12-10] MEDS: MethylPREDNISolone 125 MG/2 ML Vial 100 MG IV (06:07)
[2023-12-10 07:19] LABS: Atypical Lymphocyte 2+ %
--- NOTE | 2023-12-10 08:02 | PCM.CONS.GEN ---
Assessment & Plan Assessment/Plan (1) Non-pressure chronic ulcer of left calf with fat layer exposed: (2) Chronic venous insufficiency: (3) Anemia: (4) Thrombocytopenia: (5) Generalized weakness: (6) Leg edema: PLAN: Plan Patient seen and evaluated Left lower extremity: Left lower extremity demonstrates chronic venous stasis with hemosiderin deposition and erythema at the anterior aspect of the lower extremity. There are small circumferential pressure ulcerations secondary to compression stocking that had rolled down and got stuck. Ulcerations demonstrate superficial layers that are granular in nature to some areas of ulcerations with scant yellow fibrotic tissue and some eschar around the border. No signs of infection. Erythema secondary to chronic venous stasis and pressure ulceration WBC 6.0, CRP 41.10, lactic acid 0.8 A1c is pending Radiographs 12/09/2023 of the right foot demonstrates diffuse arthritis. No signs of infection. Following verbal permission was performed of the left lower extremity ulceration sites utilizing abrasion with saline moistened gauze and towels. Debridement performed down to the level of subcutaneous tissue anterior leg and healthy tissue for remaining ulceration sites. Debridement consisted of removal of fibrous, devitalized subcutaneous, biofilm, slough. 100% of the ulcerative sites were debrided to healthy granular layer. Hemostasis was achieved with pressure. Postdebridement cluster of ulceration measures 2.5 cm x 15 cm x 0.1 cm. Sites were painted with Betadine and dressed with Aquacel Ag and Kerlix. Compression achieved via Christopher wrap. Christopher wrap compression applied to right lower extremity. May readjust bilateral Christopher as needed to maintain compression. She is to continue to elevate lower extremities at all times of rest to aid in edema control Recommend continued use of compression stockings once ulcerations have healed. Compression recommended 20 to 30 mmHg. Recommended updating compression stockings to proper sizing as her previous stockings have rolled down her leg causing the ulceration. Medicine currently following for medical management, they are greatly appreciated Infectious disease following for antibiotic management Hematology following Wound nurse following for assistance with dressing changes Podiatry will continue to follow and monitor wound healing. No planned surgical intervention at this time. Recommend return to the wound care center continued care of lower extremity ulcerations if needed. Jr. Alayna GregorioP.M. [facility] [phone] HPI Consult Data Date of Consult: 12/10/23 HPI Narrative Reason for Consultation: Left lower extremity ulceration secondary to chronic venous stasis HPI Narrative: DAVID PATTON, is a 73 F who presents to [facility] on 12/09/2023 with complaint of generalized weakness and fatigue for at least 4 weeks duration. Patient states that she was previously diagnosed with hemolytic anemia by Dr. Tay 10 years ago and her weakness feels the same. On examination in the ER she was also found to have an anterior left lower extremity ulceration. Patient reports that she does wear compression stockings and unfortunately the left stockings did roll down her leg became stuck causing circumferential ulcerations. She denies going to the wound care center for treatment of the ulcerations. She denies F/C/chills/SOB/fever. Also denies dysuria and hematuria and chest pain. Workup in the ED did demonstrate neutropenia 3.3, thrombocytopenia, and acute kidney injury BUN of 66. She was admitted for continued observation however overnight hemoglobin did decrease from 13.3 down to 4.8 and she was transferred to the ICU with hematology to follow-up. Podiatry was consulted for examination of the left lower extremity ulceration and for continued wound care. [facility] Medical History (Updated 12/10/23 @ 14:[address] Daniel Sherwood, ANITA) Kidney disease Venous stasis dermatitis of left lower extremity Leg edema Leg swelling Venous stasis dermatitis of left lower extremity Chronic venous hypertension with inflammation involving left side Varicose veins with inflammation Chronic venous insufficiency Wears dentures Wears glasses Stroke/cerebrovascular accident History of hiatal hernia Gastric reflux Non-smoker Shortness of breath on exertion History of edema History of stress test Hypertension Chronic venous hypertension w/ulcer and inflammation involv left side Venous stasis dermatitis of both lower extremities Venous stasis ulcer Chronic venous insufficiency 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, right lower leg Chronic kidney disease, stage III (moderate) Cerebrovascular disease Home Medications ?Medication ?Instructions ?Recorded ?Last Taken ?Type Lisinopril/Hydrochlorothiazide 2 tab PO DAILY bp 06/17/17 12/08/23 History [Zestoretic /.5 Tablet] aspirin 81 mg chewable tablet 81 mg PO DAILY HEART HEALTH 06/17/17 12/08/23 History cholecalciferol (vitamin D3) 25 1,000 unit PO DAILY SUPPLEMENT 06/17/17 12/08/23 History mcg (1,000 unit) capsule (Vitamin D3) cetirizine 10 mg tablet (Zyrtec) 10 mg PO DAILY ALLERGIES 06/18/17 12/08/23 History oxycodone-acetaminophen 5 mg-325 1 tab PO Q8H PRN pain 5 days #14 08/06/22 Unknown Rx mg tablet (Percocet) tabs Allergy/AdvReac Type Severity Reaction Status Date / Time cephalexin (From Keflex) Allergy Hives Verified 12/09/23 15:07 Penicillins Allergy Hives Verified 12/09/23 15:07 Surgical History (Updated 12/09/23 @ 19:48 by Enedelia Garcia) History of appendectomy History of 3 sections Status post appendectomy Social History Smoking Status: Never smoker ROS Constitutional Constitutional: Reports fatigue and weakness; Denies chills or fever(s) Eyes Eyes: Denies diplopia, erythema or loss of vision ENT HEENT: Denies dysphagia, nasal discharge, rhinorrhea or sore throat Cardiovascular Cardiovascular: Denies chest pain, claudication or palpitations Respiratory/Chest Respiratory/Chest: Denies cough, dyspnea or shortness of breath at rest Gastrointestinal Gastrointestinal: Denies abdominal pain, constipation, diarrhea, nausea or vomiting Genitourinary Genitourinary: Denies dysuria or urinary urgency Musculoskeletal Musculoskeletal: Denies joint pain, joint stiffness or joint swelling Integumentary Integumentary: Denies jaundice, lesions, pruritus or rash Neurologic Neurologic: Denies dizziness, numbness or seizures Psychiatric Psychiatric: Denies anxiety or depression Endocrine Endocrinology: Denies polydipsia, polyphagia or polyuria Hematologic/Lymphatic Hematologic/Lymphatic: Denies easy bleeding or easy bruising Allergic/Immunologic Allergic/Immunologic: Denies wheezing Physical Exam Const alert, oriented x3 and no apparent distress General Appearance: cooperative HEENT normocephalic Eyes General Eye: normal appearance of both eyes Neck General: normal visual inspection Lymph Lymphatic: no lymphadenopathy noted and no lymphedema noted Resp normal respiratory effort Cardio regular rate and regular rhythm Extremity no calf tenderness and no pedal edema Extremity Narrative: Vascular: DP and PT pulses palpable right lower extremity, DP weakly palpable left lower extremity, PT palpable left lower extremity. CFT less than 4 seconds to the digits. Normal temperature gradient. Hair growth is absent to digits. Neurologic: Epicritic sensation intact. No focal deficits noted. Musculoskeletal: Right lower extremity weakness secondary to polio. Left lower extremity muscle strength 5 of 5 age-appropriate. Dermatologic: Left lower extremity demonstrates chronic venous stasis with hemosiderin deposition and erythema at the anterior aspect of the lower extremity. There are small circumferential pressure ulcerations secondary to compression stocking that had rolled down and got stuck. Ulcerations demonstrate superficial layers that are granular in nature to some areas of ulcerations with scant yellow fibrotic tissue and some eschar around the border. No signs of infection. Erythema secondary to chronic venous stasis and pressure ulceration. Right lower extremity grossly normal. Skin no rashes or lesions noted, skin turgor normal and no jaundice Neuro moves all extremities Lab / Micro Data 12/10/23 04:30 12/10/23 03:32 Labs: Laboratory Results - last 24 hr 12/09/23 15:15: WBC 3.3 L, RBC 4.30, Hgb 13.5, Hct 42.6, MCV 99.1 H, MCH 31.4, MCHC 31.7 L, RDW Std Deviation 55.5 H, RDW Coeff of Yamile 15.4 H, Plt Count 102 L, MPV 9.2, Immature Gran % (Auto) 0.900, Neut % (Auto) 69.9, Lymph % (Auto) 24.4, Sierra % (Auto) 2.7, Eos % (Auto) 1.5, Baso % (Auto) 0.6, Absolute Neuts (auto) 2.3, Absolute Lymphs (auto) 0.81 L, Nucleated RBC % 0, Differential Comment SCANNED, Sodium 134 L, Potassium 3.6, Chloride 102, Carbon Dioxide 24.0, Anion Gap 8, BUN 66 H, Creatinine 3.37 H, Estim Creat Clear Calc 15.01, Est GFR (MDRD) Af Amer 17 L, Est GFR (MDRD) Non-Af 14 L, BUN/Creatinine Ratio 19.6, Glucose 132 H, Calcium 8.9, Phosphorus 2.6, Magnesium 2.0, Total Bilirubin 1.40 H, AST 48 H, ALT 23, Alkaline Phosphatase 81, Total Protein 6.4, Albumin 2.9 L, Globulin 3.5, Albumin/Globulin Ratio 0.8 L, Blood Type A NEGATIVE, Antibody Screen POSITIVE, Antibody Identification Cancelled, Antibody ID (Elution) Cancelled, Direct Antiglob Test POS w/COMPLEMENT H 12/09/23 15:15: Direct Antiglob Test POS w/IgG H 12/09/23 15:15: Direct Antiglob Test POS w/POLYSPECIFIC H, Crossmatch See Detail 12/10/23 03:32: WBC Cancelled, Corrected WBC Cancelled, RBC Cancelled, Hgb Cancelled, Hct Cancelled, MCV Cancelled, MCH Cancelled, MCHC Cancelled, RDW Std Deviation Cancelled, RDW Coeff of Yamile Cancelled, Plt Count Cancelled, MPV Cancelled, Immature Gran % (Auto) Cancelled, Neut % (Auto) Cancelled, Lymph % (Auto) Cancelled, Sierra % (Auto) Cancelled, Eos % (Auto) Cancelled, Baso % (Auto) Cancelled, Absolute Neuts (auto) Cancelled, Absolute Lymphs (auto) Cancelled, Total Counted Cancelled, Neutrophils % (Manual) Cancelled, Band Neutrophils % Cancelled, Lymphocytes % (Manual) Cancelled, Monocytes % (Manual) Cancelled, Eosinophils % (Manual) Cancelled, Basophils % (Manual) Cancelled, Metamyelocytes % Cancelled, Myelocytes % Cancelled, Promyelocytes % Cancelled, Blast Cells % Cancelled, Plasma Cell % (Manual) Cancelled, Other Cells % Cancelled, Nucleated RBC % Cancelled, Nucleated RBCs/100 WBC Cancelled, Differential Comment Cancelled, Diff Path Review Cancelled, Hypersegmented Neuts Cancelled, Atypical Lymphocytes Cancelled, Reactive Lymphocytes Cancelled, Smudge Cells Cancelled, Toxic Granulation Cancelled, Toxic Vacuolation Cancelled, Dohle Bodies Cancelled, Lyle Rods Cancelled, Platelet Estimate Cancelled, Plt Morphology Comment Cancelled, RBC Morphology Cancelled 12/10/23 03:32: RBC Morphology Cancelled, Polychromasia Cancelled, Hypochromasia Cancelled, Basophilic Stippling Cancelled, Anisocytosis Cancelled, Microcytosis Cancelled, Macrocytosis Cancelled, Spherocytes Cancelled, Sickle Cells Cancelled, Target Cells Cancelled, Tear Drop Cells Cancelled, Ovalocytes Cancelled, Stomatocytes Cancelled, Christianson-Cloverly Bodies Cancelled, [place] Cells Cancelled, Bite Cells Cancelled, Crenated Cell Cancelled, Acanthocytes (Spur) Cancelled, Rouleaux Cancelled, Schistocytes Cancelled, ESR Cancelled, Sodium 135 L, Potassium 3.4 L, Chloride 107, Carbon Dioxide 24.0, Anion Gap 4 L, BUN 62 H, Creatinine 2.62 H, Estim Creat Clear Calc 19.19, Est GFR (MDRD) Af Amer 23 L, Est GFR (MDRD) Non-Af 19 L, BUN/Creatinine Ratio 23.7 H, Glucose 104, Lactic Acid 0.8, Calcium 7.8 L, Iron 39 L, TIBC 144 L, Iron Saturation 27.1, Ferritin 1756 H, C-React Prot Ext Range 41.10 H, Procalcitonin 1.13 H 12/10/23 03:40: Urine Color Yellow, Urine Clarity Sl. Cloudy, Urine pH 5.0, Ur Specific [place] 1.020, Urine Protein 30 H, Urine Glucose (UA) Normal, Urine Ketones Negative, Urine Occult Blood 25 H, Urine Nitrite Negative, Urine Bilirubin Negative, Urine Urobilinogen 1 H, Ur Leukocyte Esterase 500 H, Urine RBC 0 SEEN, Urine WBC 50-100 SEEN, Ur Squamous Epith Cells 0-5 SEEN, Ur Transition Epith Cell 0 SEEN, Ur Renal Epithelial Cell 0-5 SEEN, Urine Bacteria 1+, Urine Mucus 0 SEEN, Urine Osmolality 492, U Random Total Protein 46.3 H, Ur Random Sodium 48, Urine Creatinine 194.00, Protein/Creatinin Ratio 239 H, Urine Potassium 28.0 12/10/23 04:30: WBC 6.0, RBC 1.48 L, Hgb 4.8 L*, Hct 15.0 L, MCV 101.4 H, MCH 32.4 H, MCHC 32.0, RDW Std Deviation 56.2 H, RDW Coeff of Yamile 15.4 H, Plt Count 151, MPV 8.6, Immature Gran % (Auto) 1.500 H, Neut % (Auto) 67.0, Lymph % (Auto) 25.3, Sierra % (Auto) 3.8, Eos % (Auto) 2.2, Baso % (Auto) 0.2, Absolute Neuts (auto) 4.1, Absolute Lymphs (auto) 1.53, Nucleated RBC % 0, Diff Path Review May foll, Atypical Lymphocytes 2+, Retic Count 6.31 H, Immature Retic Fraction 26.00 H, Retic Hgb Equivalent 30.9, Total Bilirubin 1.00, Direct Bilirubin 0.31 H, AST 40 H, ALT 12 L, Alkaline Phosphatase 62, Lactate Dehydrogenase 593 H, Total Protein 4.9 L, Albumin 2.2 L, Globulin 2.7 Micro: Microbiology 12/10/23 03:01 Mucosa - Nasopharyngeal SARS-CoV-2, Influenza & RSV (PCR) - Final Imaging Radiology Impression Chest X-Ray 12/09/23 15:30 IMPRESSION: Moderate-sized hiatal hernia. The lungs are clear. Electronically Signed: Victor Manuel Gerber MD at 15:44 EDT ,
[2023-12-10 08:04] LABS: Urine Chloride 39 mmol/L (Not Establ.)
[2023-12-10] MEDS: NORMAL SALINE 0.9% IV (08:11)
[2023-12-10] MEDS: AZTREONAM IV (08:11)
[2023-12-10] MEDS: Cholecalciferol (VIT D3) 25 MCG TABLET (1,000 UNITS) PO (08:29)
[2023-12-10] MEDS: Folic Acid 1 MG Tablet PO (08:29)
--- NOTE | 2023-12-10 08:46 | WOUNDNOTE ---
wound photo: left lower leg
--- NOTE | 2023-12-10 08:46 | WOUNDNOTE ---
wound photo: left lower leg
--- NOTE | 2023-12-10 08:47 | WOUNDNOTE ---
wound photo: left lower leg
--- NOTE | 2023-12-10 10:05 | CASEMGMT ---
SAVANA ESTES Assessment Face to Face with patient for initial transition planning/care coordination assessment. RN FRANKLYN introduced self and role at [facility], pt voices understanding. Pt is A&Ox4 and is resting comfortably in bed and is calm. Care providers, pharmacy, and demographics verified. Admitting dx: KATH on CKD, Lt Leg Cellulitis, Ulcer LACE Strata: 2 PCP: Jeferson Vega Specialists: Pt states that she used to see Dr. Burrows (Vascular), but states that he retired. [facility] Insurance: [facility] Prescription Benefit: Yes LNOK: Francisco Javier Perez (Son), Dorothy Tinajero (Daughter) Living Arrangements: Pt lives with her daughter Dorothy in a single story home with two steps to enter ADLs/IADLs: States independent Transportation: Self, Family. Denies concerns DME: BP Monitor. Pt states that she does not have any other DME uses or needs at this time. This RN FRANKLYN inquired about the pt wanting a FWW at home, pt declined need at this time. PT to follow. HHC/SNF: Denies History. Pt states that she has a Hx at the [facility] and was last seen in 2021. Pt states I was just going to call and make an appt last week for my leg. Pt?s goal: Return to PLOF Plan: TBD. PT/OT pending. Pt was admitted to the ICU for low Hgb, hypotension, and bradycardia. CM and SW to follow pt progression in the hospital to decipher what the pt best qualifies for moving forward. Waleska Stewart RN, CM
[2023-12-10 12:17] LABS: Bedside Glucose 158 mg/dL (74-106)
--- NOTE | 2023-12-10 12:39 | PCM.PROGNOTE ---
Subjective Subjective Patient seen and examined. She had no active complaints. She was admitted with a complaint of weakness. Her Hb dropped acutely to 4.8 overnight. She has been managed for acute hemolytic anemia. HEmatology is on board and she has la started on IV solumedrol. Review of systems is otherwise negative. Objective Data Objective Data Vital Signs: Vital Signs Temp Pulse Resp BP Pulse Ox O2 Del Method O2 Flow Rate 97.9 F 66 22 H 96/48 L 98 Room Air 2 12/10/23 10:00 12/10/23 10:00 12/10/23 10:00 12/10/23 10:00 12/10/23 10:00 12/10/23 11:55 12/10/23 09:00 Oxygen Flow Rate (L/min) 2 Oxygen Delivery Method Room Air Weight: 212 lb 15.465 oz Body Mass Index (BMI) 40.1 Intake & Output: Intake and Output for Last 24 Hours 12/08/23 12/09/23 12/10/23 23:59 23:59 23:59 Intake Total 1100 / 1100 2909.75 / 2909.75 Output Total 950 / 950 Balance 1100 / 1100 1959.75 / 1959.75 Lab / Micro Data 12/10/23 04:30 12/10/23 03:32 Labs: Laboratory Results - last 24 hr 12/09/23 15:15: WBC 3.3 L, RBC 4.30, Hgb 13.5, Hct 42.6, MCV 99.1 H, MCH 31.4, MCHC 31.7 L, RDW Std Deviation 55.5 H, RDW Coeff of Yamile 15.4 H, Plt Count 102 L, MPV 9.2, Immature Gran % (Auto) 0.900, Neut % (Auto) 69.9, Lymph % (Auto) 24.4, [place] % (Auto) 2.7, Eos % (Auto) 1.5, Baso % (Auto) 0.6, Absolute Neuts (auto) 2.3, Absolute Lymphs (auto) 0.81 L, Nucleated RBC % 0, Differential Comment SCANNED, Sodium 134 L, Potassium 3.6, Chloride 102, Carbon Dioxide 24.0, Anion Gap 8, BUN 66 H, Creatinine 3.37 H, Estim Creat Clear Calc 15.01, Est GFR (MDRD) Af Amer 17 L, Est GFR (MDRD) Non-Af 14 L, BUN/Creatinine Ratio 19.6, Glucose 132 H, Calcium 8.9, Phosphorus 2.6, Magnesium 2.0, Total Bilirubin 1.40 H, AST 48 H, ALT 23, Alkaline Phosphatase 81, Total Protein 6.4, Albumin 2.9 L, Globulin 3.5, Albumin/Globulin Ratio 0.8 L, Blood Type A NEGATIVE, Antibody Screen NEGATIVE, Antibody Identification Cancelled 12/09/23 15:15: Antibody Identification NEGATIVE ANTIBODY PANEL, Antibody ID (Elution) Cancelled, Direct Antiglob Test POS w/COMPLEMENT H 12/09/23 15:15: Direct Antiglob Test POS w/IgG H 12/09/23 15:15: Direct Antiglob Test POS w/POLYSPECIFIC H, Crossmatch See Detail 12/10/23 03:32: WBC Cancelled, Corrected WBC Cancelled, RBC Cancelled, Hgb Cancelled, Hct Cancelled, MCV Cancelled, MCH Cancelled, MCHC Cancelled, RDW Std Deviation Cancelled, RDW Coeff of Yamile Cancelled, Plt Count Cancelled, MPV Cancelled, Immature Gran % (Auto) Cancelled, Neut % (Auto) Cancelled, Lymph % (Auto) Cancelled, [place] % (Auto) Cancelled, Eos % (Auto) Cancelled, Baso % (Auto) Cancelled, Absolute Neuts (auto) Cancelled, Absolute Lymphs (auto) Cancelled, Total Counted Cancelled, Neutrophils % (Manual) Cancelled, Band Neutrophils % Cancelled, Lymphocytes % (Manual) Cancelled, Monocytes % (Manual) Cancelled, Eosinophils % (Manual) Cancelled, Basophils % (Manual) Cancelled, Metamyelocytes % Cancelled, Myelocytes % Cancelled, Promyelocytes % Cancelled, Blast Cells % Cancelled, Plasma Cell % (Manual) Cancelled, Other Cells % Cancelled, Nucleated RBC % Cancelled, Nucleated RBCs/100 WBC Cancelled, Differential Comment Cancelled, Diff Path Review Cancelled, Hypersegmented Neuts Cancelled, Atypical Lymphocytes Cancelled, Reactive Lymphocytes Cancelled, Smudge Cells Cancelled, Toxic Granulation Cancelled, Toxic Vacuolation Cancelled, Dohle Bodies Cancelled, Lyle Rods Cancelled, Platelet Estimate Cancelled, Plt Morphology Comment Cancelled, RBC Morphology Cancelled 12/10/23 03:32: RBC Morphology Cancelled, Polychromasia Cancelled, Hypochromasia Cancelled, Basophilic Stippling Cancelled, Anisocytosis Cancelled, Microcytosis Cancelled, Macrocytosis Cancelled, Spherocytes Cancelled, Sickle Cells Cancelled, Target Cells Cancelled, Tear Drop Cells Cancelled, Ovalocytes Cancelled, Stomatocytes Cancelled, [place] Bodies Cancelled, [place] Cells Cancelled, Bite Cells Cancelled, Crenated Cell Cancelled, Acanthocytes (Spur) Cancelled, Rouleaux Cancelled, Schistocytes Cancelled, ESR Cancelled, Sodium 135 L, Potassium 3.4 L, Chloride 107, Carbon Dioxide 24.0, Anion Gap 4 L, BUN 62 H, Creatinine 2.62 H, Estim Creat Clear Calc 19.19, Est GFR (MDRD) Af Amer 23 L, Est GFR (MDRD) Non-Af 19 L, BUN/Creatinine Ratio 23.7 H, Glucose 104, Lactic Acid 0.8, Calcium 7.8 L, Iron 39 L, TIBC 144 L, Iron Saturation 27.1, Ferritin 1756 H, C-React Prot Ext Range 41.10 H, Procalcitonin 1.13 H 12/10/23 03:40: Urine Color Yellow, Urine Clarity Sl. Cloudy, Urine pH 5.0, Ur Specific [place] 1.020, Urine Protein 30 H, Urine Glucose (UA) Normal, Urine Ketones Negative, Urine Occult Blood 25 H, Urine Nitrite Negative, Urine Bilirubin Negative, Urine Urobilinogen 1 H, Ur Leukocyte Esterase 500 H, Urine RBC 0 SEEN, Urine WBC 50-100 SEEN, Ur Squamous Epith Cells 0-5 SEEN, Ur Transition Epith Cell 0 SEEN, Ur Renal Epithelial Cell 0-5 SEEN, Urine Bacteria 1+, Urine Mucus 0 SEEN, Urine Osmolality 492, U Random Total Protein 46.3 H, Ur Random Sodium 48, Urine Creatinine 194.00, Protein/Creatinin Ratio 239 H, Urine Potassium 28.0, Urine Chloride 39 12/10/23 04:30: WBC 6.0, RBC 1.48 L, Hgb 4.8 L*, Hct 15.0 L, MCV 101.4 H, MCH 32.4 H, MCHC 32.0, RDW Std Deviation 56.2 H, RDW Coeff of [place] 15.4 H, Plt Count 151, MPV 8.6, Immature Gran % (Auto) 1.500 H, Neut % (Auto) 67.0, Lymph % (Auto) 25.3, [place] % (Auto) 3.8, Eos % (Auto) 2.2, Baso % (Auto) 0.2, Absolute Neuts (auto) 4.1, Absolute Lymphs (auto) 1.53, Nucleated RBC % 0, Diff Path Review May foll, Atypical Lymphocytes 2+, Retic Count 6.31 H, Immature Retic Fraction 26.00 H, Retic Hgb Equivalent 30.9, Total Bilirubin 1.00, Direct Bilirubin 0.31 H, AST 40 H, ALT 12 L, Alkaline Phosphatase 62, Lactate Dehydrogenase 593 H, Total Protein 4.9 L, Albumin 2.2 L, Globulin 2.7 12/10/23 11:50: POC Glucose 158 H Micro: Microbiology 12/09/23 21:00 Wound - Leg, Left Wound Culture - Preliminary Staphylococcus aureus Beta streptococcus Gram positive organism 12/10/23 03:01 Mucosa - Nasopharyngeal SARS-CoV-2, Influenza & RSV (PCR) - Final Radiography Diagnostic Testing: Radiology Impression Chest X-Ray 12/09/23 15:30 IMPRESSION: Moderate-sized hiatal hernia. The lungs are clear. Electronically Signed: Victor Manuel Gerber MD at 15:44 EDT , Physical Exam Const alert, oriented x3, no apparent distress and well nourished General Appearance: cooperative and well developed HEENT normocephalic and head/scalp atraumatic Mouth: dry mucous membranes Eyes PERRL and EOMs intact bilaterally Neck no lymphadenopathy Lymph Lymphatic: no lymphadenopathy noted and no lymphedema noted Resp normal respiratory effort, normal air movement and clear to auscultation bilaterally Cardio regular rate, regular rhythm, S1 normal heart sound, S2 normal heart sound and no murmurs Peripheral Pulses: pulses 2+ throughout GI normal to inspection, nondistended, normoactive bowel sounds, soft to palpation, non-tender and non-distended Extremity normal capillary refill, no clubbing, cyanosis or edema and no calf tenderness General Extremity: no tenderness to palpation of joints or extremities Skin General Skin Exam: no breakdown Neuro CN's II-XII intact bilaterally, no focal motor deficits, no sensory deficits noted and deep tendon reflexes 2+ bilaterally Motor Exam: strength 5/5 throughout and general weakness Psych thought process normal, cooperative and affect normal Appearance: appropriate Assessment & Plan Assessment/Plan (1) Autoimmune hemolytic anemia: (2) Anemia: (3) Acute hemolysis: PLAN: Plan #Acute anemia due to hemolysis from Warm Autoimmune hemolytic anemia Patient was admitted with a complaint of weakness. Hemoglobin was initially on 13 but overnight did drop to 4.8. She does have a history of autoimmune hemolytic anemia since she has not been on treatment for several years now. Hematology urgently consulted. LDH was elevated and direct [place] test was also positive for IgG and complement. She is currently on IV Solu-Medrol 1 g daily. She has been transfused with packed red blood cells also to them for hemoglobin more than 7. Iron profile showed iron saturation of 27.1 with iron of 39 but ferritin was elevated at 1756. Total bilirubin is however not elevated. #UTI: Urinalysis showed evidence of UTI. Currently on IV ceftriaxone. Urine cultures pending #DVT: She complained of left calf pain on admission and duplex of lower extremities done showed acute DVT in the left gastrocnemius vein. Discussed with hematology about whether we could anticoagulate her and per hematology she can be anticoagulated once there is no clear evidence of bleeding. Will start patient on eliquis treatment dose # KATH on CKD IIIb: Creatinine was 3.37 on admission. Baseline from 2022 is 1.18. Creatinine has trended down to 2.62 with hydration. Appears to be prerenal. I will continue hydration and trend creatinine. If it does not continue to improve will get further workup with urine electrolytes and renal ultrasound. # Left lower extremity venous ulcer with cellulitis: Duplex as above. Wound care consulted. Podiatry also consulted. Was initially on IV aztreonam and linezolid but this was switched to aztreonam and vancomycin. ID also consulted. #Hypertension: HCTZ and lisinopril held due to KATH. IV hydralazine as needed #History of polio: Stable DVT prophylaxis: to be started on anticoagulation for acute DVT in LLE Charges/Coding Visit Charges Inpatient E&M: 49265 Subs Hosp L3
--- NOTE | 2023-12-10 12:58 | CON.PCM.ON_ITS ---
Assessment & Plan Assessment/Plan (1) Autoimmune hemolytic anemia: Status: Chronic Plan: Patient appears to have acute/subacute (over the course of several weeks) on chronic autoimmune hemolysis with a past history of autoimmune hemolytic anemia treated with a single course steroids for approximately 9 months. As discussed over the phone with the hospitalist patient was started on prednisone 1 Mg per kilogram body weight daily pending completion of workup. Autoimmune hemolytic anemia increases risk for venous thromboembolic disease. Patient has longstanding history of chronic venous insufficiency. There is no contraindication for systemic anticoagulation either prophylactic or therapeutic dosing. (2) Anemia: Status: Acute Code(s): D64.9 - Anemia, unspecified Plan: There is a discrepancy between emergency room admission hemoglobin of 13.5 and hours later a hemoglobin of 4.8, nonetheless patient was in KATH and received IV fluids hydration and part of this precipitous drop may be due to improving dehydration. Repeat the CBCD stat to clarify. (3) Acute hemolysis: Status: Acute Plan: Started on oral prednisone and folic acid. Follow CBC, CHEM panel, and LDH every morning. Patient is being transfused with packed red blood cells, target hemoglobin 7 to 8 g per DL. I would advise keeping the patient in ICU while she is transfusion dependent due to increased risk for transfusion reaction. HPI Consult Data Date of Service:: 12/10/23 PCP / Referring Provider: Dr. Jeferson Vega MD Attending: Dr. Rachel Abebe MD Chief Complaint Chief Complaint: Fatigue, anemia History of Present Illness History of Present Illness: 73-year-old female with a past history notable for autoimmune hemolytic anemia treated with high-dose steroids several years earlier. The patient was hospitalized with progressively increasing fatigue and recurrent anemia. She is unaware of any external blood loss, had no recent falls and believe that her baseline hemoglobin is around 11 g per DL (outside records requested) Advanced Directives Power of Gift Manager: Yes Living Will: Yes [facility] Medical History (Updated 12/10/23 @ 12:[address] Rachel Abebe MD) Kidney disease Venous stasis dermatitis of left lower extremity Leg edema Leg swelling Venous stasis dermatitis of left lower extremity Chronic venous hypertension with inflammation involving left side Varicose veins with inflammation Chronic venous insufficiency Wears dentures Wears glasses Stroke/cerebrovascular accident History of hiatal hernia Gastric reflux Non-smoker Shortness of breath on exertion History of edema History of stress test Hypertension Chronic venous hypertension w/ulcer and inflammation involv left side Venous stasis dermatitis of both lower extremities Venous stasis ulcer Chronic venous insufficiency 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, right lower leg Chronic kidney disease, stage III (moderate) Cerebrovascular disease Home Medications ?Medication ?Instructions ?Recorded ?Last Taken ?Type Lisinopril/Hydrochlorothiazide 2 tab PO DAILY bp 06/17/17 12/08/23 History [Zestoretic 20/12.5 Tablet] aspirin 81 mg chewable tablet 81 mg PO DAILY HEART HEALTH 06/17/17 12/08/23 History cholecalciferol (vitamin D3) 25 1,000 unit PO DAILY SUPPLEMENT 06/17/17 12/08/23 History mcg (1,000 unit) capsule (Vitamin D3) cetirizine 10 mg tablet (Zyrtec) 10 mg PO DAILY ALLERGIES 06/18/17 12/08/23 History oxycodone-acetaminophen 5 mg-325 1 tab PO Q8H PRN pain 5 days #14 08/06/22 Unknown Rx mg tablet (Percocet) tabs Allergy/AdvReac Type Severity Reaction Status Date / Time cephalexin (From Keflex) Allergy Hives Verified 12/09/23 15:07 Penicillins Allergy Hives Verified 12/09/23 15:07 Surgical History (Updated 12/09/23 @ 19:48 by Enedelia Garcia) History of appendectomy History of 3 sections Status post appendectomy Social History Smoking Status: Never smoker ROS Constitutional Constitutional: Reports fatigue; Denies fever(s) Cardiovascular Cardiovascular: Reports edema; Denies chest pain or dyspnea Respiratory/Chest Respiratory/Chest: Denies cough, dyspnea or hemoptysis Gastrointestinal Gastrointestinal: Denies abdominal pain, change in bowel habits, hematochezia, melena or vomiting Genitourinary Genitourinary: Denies hematuria Musculoskeletal Musculoskeletal: Reports abnormal gait Integumentary Integumentary: Reports other Details: Chronic leg ulcer ; Denies new lesions Neurologic Neurologic: Reports dizziness, focal weakness and other Details: Right lower extremity old polio ; Denies headache(s) Hematologic/Lymphatic Hematologic/Lymphatic: Denies easy bleeding or lymphadenopathy Physical Exam Const alert, oriented x3 and no apparent distress Nutritional Appearance: obese HEENT normocephalic Eyes no scleral icterus Neck no lymphadenopathy and no JVD Resp clear to auscultation bilaterally Cardio regular rate and regular rhythm GI soft to palpation and non-tender Extremity General Extremity: edema bilateral lower extremity Details: severe Skin no jaundice Wound Narrative: Lower extremity wound dressing Neuro Neuro Narrative: Right lower extremity leg size asymmetry from old polio Psych mental status grossly normal Vital Signs Temperature 97.9 F 12/10/23 10:00 Temperature Source Temporal 12/10/23 10:00 Pulse Rate 66 12/10/23 10:00 Pulse Strength Weak (1+) 12/10/23 10:00 Respiratory Rate 22 H 12/10/23 10:00 Respiratory Effort Normal, Non-Labored 12/10/23 11:55 Respiratory Depth Normal 12/10/23 11:55 Respiratory Pattern Normal 12/10/23 11:55 Blood Pressure 96/48 L 12/10/23 10:00 Blood Pressure Mean 64 12/10/23 10:00 Blood Pressure Source Monitor 12/10/23 10:00 Blood Pressure Position Semi-Fowlers 12/10/23 10:00 Blood Pressure Location Right Arm 12/10/23 10:00 Pulse Ox 98 12/10/23 10:00 Oxygen Delivery Method Room Air 12/10/23 11:55 Oxygen Flow Rate (L/min) 2 12/10/23 09:00 Laboratory Results - last 24 hr 12/09/23 15:15: WBC 3.3 L, RBC 4.30, Hgb 13.5, Hct 42.6, MCV 99.1 H, MCH 31.4, MCHC 31.7 L, RDW Std Deviation 55.5 H, RDW Coeff of Yamile 15.4 H, Plt Count 102 L, MPV 9.2, Immature Gran % (Auto) 0.900, Neut % (Auto) 69.9, Lymph % (Auto) 24.4, [place] % (Auto) 2.7, Eos % (Auto) 1.5, Baso % (Auto) 0.6, Absolute Neuts (auto) 2.3, Absolute Lymphs (auto) 0.81 L, Nucleated RBC % 0, Differential Comment SCANNED, Sodium 134 L, Potassium 3.6, Chloride 102, Carbon Dioxide 24.0, Anion Gap 8, BUN 66 H, Creatinine 3.37 H, Estim Creat Clear Calc 15.01, Est GFR (MDRD) Af Amer 17 L, Est GFR (MDRD) Non-Af 14 L, BUN/Creatinine Ratio 19.6, Glucose 132 H, Calcium 8.9, Phosphorus 2.6, Magnesium 2.0, Total Bilirubin 1.40 H, AST 48 H, ALT 23, Alkaline Phosphatase 81, Total Protein 6.4, Albumin 2.9 L, Globulin 3.5, Albumin/Globulin Ratio 0.8 L, Blood Type A NEGATIVE, Antibody Screen NEGATIVE, Antibody Identification Cancelled 12/09/23 15:15: Antibody Identification NEGATIVE ANTIBODY PANEL, Antibody ID (Elution) Cancelled, Direct Antiglob Test POS w/COMPLEMENT H 12/09/23 15:15: Direct Antiglob Test POS w/IgG H 12/09/23 15:15: Direct Antiglob Test POS w/POLYSPECIFIC H, Crossmatch See Detail 12/10/23 03:32: WBC Cancelled, Corrected WBC Cancelled, RBC Cancelled, Hgb Cancelled, Hct Cancelled, MCV Cancelled, MCH Cancelled, MCHC Cancelled, RDW Std Deviation Cancelled, RDW Coeff of [place] Cancelled, Plt Count Cancelled, MPV Cancelled, Immature Gran % (Auto) Cancelled, Neut % (Auto) Cancelled, Lymph % (Auto) Cancelled, [place] % (Auto) Cancelled, Eos % (Auto) Cancelled, Baso % (Auto) Cancelled, Absolute Neuts (auto) Cancelled, Absolute Lymphs (auto) Cancelled, Total Counted Cancelled, Neutrophils % (Manual) Cancelled, Band Neutrophils % Cancelled, Lymphocytes % (Manual) Cancelled, Monocytes % (Manual) Cancelled, Eosinophils % (Manual) Cancelled, Basophils % (Manual) Cancelled, Metamyelocytes % Cancelled, Myelocytes % Cancelled, Promyelocytes % Cancelled, Blast Cells % Cancelled, Plasma Cell % (Manual) Cancelled, Other Cells % Cancelled, Nucleated RBC % Cancelled, Nucleated RBCs/100 WBC Cancelled, Differential Comment Cancelled, Diff Path Review Cancelled, Hypersegmented Neuts Cancelled, Atypical Lymphocytes Cancelled, Reactive Lymphocytes Cancelled, Smudge Cells Cancelled, Toxic Granulation Cancelled, Toxic Vacuolation Cancelled, Dohle Bodies Cancelled, Lyle Rods Cancelled, Platelet Estimate Cancelled, Plt Morphology Comment Cancelled, RBC Morphology Cancelled 12/10/23 03:32: RBC Morphology Cancelled, Polychromasia Cancelled, Hypochromasia Cancelled, Basophilic Stippling Cancelled, Anisocytosis Cancelled, Microcytosis Cancelled, Macrocytosis Cancelled, Spherocytes Cancelled, Sickle Cells Cancelled, Target Cells Cancelled, Tear Drop Cells Cancelled, Ovalocytes Cancelled, Stomatocytes Cancelled, [place] Bodies Cancelled, [place] Cells Cancelled, Bite Cells Cancelled, Crenated Cell Cancelled, Acanthocytes (Spur) Cancelled, Rouleaux Cancelled, Schistocytes Cancelled, ESR Cancelled, Sodium 135 L, Potassium 3.4 L, Chloride 107, Carbon Dioxide 24.0, Anion Gap 4 L, BUN 62 H, Creatinine 2.62 H, Estim Creat Clear Calc 19.19, Est GFR (MDRD) Af Amer 23 L, Est GFR (MDRD) Non-Af 19 L, BUN/Creatinine Ratio 23.7 H, Glucose 104, Lactic Acid 0.8, Calcium 7.8 L, Iron 39 L, TIBC 144 L, Iron Saturation 27.1, Ferritin 1756 H, C-React Prot Ext Range 41.10 H, Procalcitonin 1.13 H 12/10/23 03:40: Urine Color Yellow, Urine Clarity Sl. Cloudy, Urine pH 5.0, Ur Specific [place] 1.020, Urine Protein 30 H, Urine Glucose (UA) Normal, Urine Ketones Negative, Urine Occult Blood 25 H, Urine Nitrite Negative, Urine Bilirubin Negative, Urine Urobilinogen 1 H, Ur Leukocyte Esterase 500 H, Urine RBC 0 SEEN, Urine WBC 50-100 SEEN, Ur Squamous Epith Cells 0-5 SEEN, Ur Transition Epith Cell 0 SEEN, Ur Renal Epithelial Cell 0-5 SEEN, Urine Bacteria 1+, Urine Mucus 0 SEEN, Urine Osmolality 492, U Random Total Protein 46.3 H, Ur Random Sodium 48, Urine Creatinine 194.00, Protein/Creatinin Ratio 239 H, Urine Potassium 28.0, Urine Chloride 39 12/10/23 04:30: WBC 6.0, RBC 1.48 L, Hgb 4.8 L*, Hct 15.0 L, MCV 101.4 H, MCH 32.4 H, MCHC 32.0, RDW Std Deviation 56.2 H, RDW Coeff of [place] 15.4 H, Plt Count 151, MPV 8.6, Immature Gran % (Auto) 1.500 H, Neut % (Auto) 67.0, Lymph % (Auto) 25.3, [place] % (Auto) 3.8, Eos % (Auto) 2.2, Baso % (Auto) 0.2, Absolute Neuts (auto) 4.1, Absolute Lymphs (auto) 1.53, Nucleated RBC % 0, Diff Path Review May foll, Atypical Lymphocytes 2+, Retic Count 6.31 H, Immature Retic Fraction 26.00 H, Retic Hgb Equivalent 30.9, Total Bilirubin 1.00, Direct Bilirubin 0.31 H, AST 40 H, ALT 12 L, Alkaline Phosphatase 62, Lactate Dehydrogenase 593 H, Total Protein 4.9 L, Albumin 2.2 L, Globulin 2.7 12/10/23 11:50: POC Glucose 158 H Laboratory Results 12/10/23 12/10/23 12/09/23 04:30 03:32 15:15 Hgb 4.8 L* 13.5 MCV 101.4 H Plt Count 151 Retic Count 6.31 H Creatinine 2.62 H 3.37 H Ferritin 1756 H Total Bilirubin 1.00 1.40 H Direct Bilirubin 0.31 H Lactate Dehydrogenase 593 H Direct Antiglob Test POS w/COMPLEMENT, POS w/IgG, POS w/POLYSPECIFIC H 07/31/22 07:55 Hgb 10.2 L MCV Plt Count Retic Count Creatinine 1.18 H Ferritin Total Bilirubin Direct Bilirubin Lactate Dehydrogenase Direct Antiglob Test Microbiology 12/09/23 21:00 Wound - Leg, Left Wound Culture - Preliminary Staphylococcus aureus Beta streptococcus Gram positive organism 12/10/23 03:01 Mucosa - Nasopharyngeal SARS-CoV-2, Influenza & RSV (PCR) - Final Diagnostic Data Chest X-Ray 12/09/23 15:30 IMPRESSION: Moderate-sized hiatal hernia. The lungs are clear. Electronically Signed: Victor Manuel Gerber MD at 15:44 EDT ,
[2023-12-10 13:18] LABS: Pathologist Review Reviewed
--- NOTE | 2023-12-10 13:38 | PCM.CONS.GEN ---
Assessment & Plan Assessment/Plan (1) Cellulitis: PLAN: Will cover with vanc/ceftriaxone for now. H/o hives with PCN and keflex, should be low risk cross reactivity with ceftriaxone. Wbc normal, KATH on CKD improved. Will follow, thank you (2) Venous stasis dermatitis of left lower extremity: HPI Consult Data Date of Consult: 12/10/23 HPI Narrative Reason for Consultation: fever HPI Narrative: DAVID PATTON, is a 73 F with h/o CKD, autoimmune hemolytic anemia, chronic BLE edema, does not wear her compression stockings as they are too hard to get on. Had a fever a week ago, no sick contacts, some recent diarrhea. No abd pain. Over past few weeks, increasing fatigue, concern for similar symptoms to prior anemia episodes. Came to ED, hgb was down, had fever to 103.2. LLE with increased swelling, redness, mild soreness. Admitted on vanc/aztreonam. Reports h/o hives with PCN. Seen by heme. Feeling better today. Full ROS performed and neg except as noted above. [facility] Medical History Kidney disease Venous stasis dermatitis of left lower extremity Leg edema Leg swelling Venous stasis dermatitis of left lower extremity Chronic venous hypertension with inflammation involving left side Varicose veins with inflammation Chronic venous insufficiency Wears dentures Wears glasses Stroke/cerebrovascular accident History of hiatal hernia Gastric reflux Non-smoker Shortness of breath on exertion History of edema History of stress test Hypertension Chronic venous hypertension w/ulcer and inflammation involv left side Venous stasis dermatitis of both lower extremities Venous stasis ulcer Chronic venous insufficiency 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, right lower leg Chronic kidney disease, stage III (moderate) Cerebrovascular disease Home Medications ?Medication ?Instructions ?Recorded ?Last Taken ?Type Lisinopril/Hydrochlorothiazide 2 tab PO DAILY bp 06/17/17 12/08/23 History [Zestoretic 20/12.5 Tablet] aspirin 81 mg chewable tablet 81 mg PO DAILY HEART HEALTH 06/17/17 12/08/23 History cholecalciferol (vitamin D3) 25 1,000 unit PO DAILY SUPPLEMENT 06/17/17 12/08/23 History mcg (1,000 unit) capsule (Vitamin D3) cetirizine 10 mg tablet (Zyrtec) 10 mg PO DAILY ALLERGIES 06/18/17 12/08/23 History oxycodone-acetaminophen 5 mg-325 1 tab PO Q8H PRN pain 5 days #14 08/06/22 Unknown Rx mg tablet (Percocet) tabs Allergy/AdvReac Type Severity Reaction Status Date / Time cephalexin (From Keflex) Allergy Hives Verified 12/09/23 15:07 Penicillins Allergy Hives Verified 12/09/23 15:07 Surgical History (Updated 12/09/23 @ 19:48 by Enedelia Garcia) History of appendectomy History of 3 sections Status post appendectomy Social History Smoking Status: Never smoker Physical Exam Const alert, oriented x3 and no apparent distress General Appearance: cooperative HEENT head/scalp atraumatic Eyes PERRL and EOMs intact bilaterally Neck supple and No nodes Resp normal air movement and clear to auscultation bilaterally Cardio regular rate and regular rhythm GI soft to palpation, non-tender and non-distended Extremity General Extremity: edema Skin Skin Narrative: L lower leg redness, swelling, warmth, shallow wounds Neuro CN's II-XII intact bilaterally Lab / Micro Data Attestation: I reviewed the patient's lab results. 12/10/23 14:05 12/10/23 03:32 Labs: Laboratory Results - last 24 hr 12/09/23 15:15: WBC 3.3 L, RBC 4.30, Hgb 13.5, Hct 42.6, MCV 99.1 H, MCH 31.4, MCHC 31.7 L, RDW Std Deviation 55.5 H, RDW Coeff of [place] 15.4 H, Plt Count 102 L, MPV 9.2, Immature Gran % (Auto) 0.900, Neut % (Auto) 69.9, Lymph % (Auto) 24.4, [place] % (Auto) 2.7, Eos % (Auto) 1.5, Baso % (Auto) 0.6, Absolute Neuts (auto) 2.3, Absolute Lymphs (auto) 0.81 L, Nucleated RBC % 0, Differential Comment SCANNED, Sodium 134 L, Potassium 3.6, Chloride 102, Carbon Dioxide 24.0, Anion Gap 8, BUN 66 H, Creatinine 3.37 H, Estim Creat Clear Calc 15.01, Est GFR (MDRD) Af Amer 17 L, Est GFR (MDRD) Non-Af 14 L, BUN/Creatinine Ratio 19.6, Glucose 132 H, Calcium 8.9, Phosphorus 2.6, Magnesium 2.0, Total Bilirubin 1.40 H, AST 48 H, ALT 23, Alkaline Phosphatase 81, Total Protein 6.4, Albumin 2.9 L, Globulin 3.5, Albumin/Globulin Ratio 0.8 L, Blood Type A NEGATIVE, Antibody Screen NEGATIVE, Antibody Identification Cancelled 12/09/23 15:15: Antibody Identification NEGATIVE ANTIBODY PANEL, Antibody ID ([place]) Cancelled, Direct Antiglob Test POS w/COMPLEMENT H 12/09/23 15:15: Direct Antiglob Test POS w/IgG H 12/09/23 15:15: Direct Antiglob Test POS w/POLYSPECIFIC H, Crossmatch See Detail 12/10/23 03:32: WBC Cancelled, Corrected WBC Cancelled, RBC Cancelled, Hgb Cancelled, Hct Cancelled, MCV Cancelled, MCH Cancelled, MCHC Cancelled, RDW Std Deviation Cancelled, RDW Coeff of [place] Cancelled, Plt Count Cancelled, MPV Cancelled, Immature Gran % (Auto) Cancelled, Neut % (Auto) Cancelled, Lymph % (Auto) Cancelled, [place] % (Auto) Cancelled, Eos % (Auto) Cancelled, Baso % (Auto) Cancelled, Absolute Neuts (auto) Cancelled, Absolute Lymphs (auto) Cancelled, Total Counted Cancelled, Neutrophils % (Manual) Cancelled, Band Neutrophils % Cancelled, Lymphocytes % (Manual) Cancelled, Monocytes % (Manual) Cancelled, Eosinophils % (Manual) Cancelled, Basophils % (Manual) Cancelled, Metamyelocytes % Cancelled, Myelocytes % Cancelled, Promyelocytes % Cancelled, Blast Cells % Cancelled, Plasma Cell % (Manual) Cancelled, Other Cells % Cancelled, Nucleated RBC % Cancelled, Nucleated RBCs/100 WBC Cancelled, Differential Comment Cancelled, Diff Path Review Cancelled, Hypersegmented Neuts Cancelled, Atypical Lymphocytes Cancelled, Reactive Lymphocytes Cancelled, Smudge Cells Cancelled, Toxic Granulation Cancelled, Toxic Vacuolation Cancelled, Dohle Bodies Cancelled, Lyle Rods Cancelled, Platelet Estimate Cancelled, Plt Morphology Comment Cancelled, RBC Morphology Cancelled 12/10/23 03:32: RBC Morphology Cancelled, Polychromasia Cancelled, Hypochromasia Cancelled, Basophilic Stippling Cancelled, Anisocytosis Cancelled, Microcytosis Cancelled, Macrocytosis Cancelled, Spherocytes Cancelled, Sickle Cells Cancelled, Target Cells Cancelled, Tear Drop Cells Cancelled, Ovalocytes Cancelled, Stomatocytes Cancelled, [place] Bodies Cancelled, [place] Cells Cancelled, Bite Cells Cancelled, Crenated Cell Cancelled, Acanthocytes (Spur) Cancelled, Rouleaux Cancelled, Schistocytes Cancelled, ESR Cancelled, Sodium 135 L, Potassium 3.4 L, Chloride 107, Carbon Dioxide 24.0, Anion Gap 4 L, BUN 62 H, Creatinine 2.62 H, Estim Creat Clear Calc 19.19, Est GFR (MDRD) Af Amer 23 L, Est GFR (MDRD) Non-Af 19 L, BUN/Creatinine Ratio 23.7 H, Glucose 104, Lactic Acid 0.8, Calcium 7.8 L, Iron 39 L, TIBC 144 L, Iron Saturation 27.1, Ferritin 1756 H, C-React Prot Ext Range 41.10 H, Procalcitonin 1.13 H 12/10/23 03:40: Urine Color Yellow, Urine Clarity Sl. Cloudy, Urine pH 5.0, Ur Specific [place] 1.020, Urine Protein 30 H, Urine Glucose (UA) Normal, Urine Ketones Negative, Urine Occult Blood 25 H, Urine Nitrite Negative, Urine Bilirubin Negative, Urine Urobilinogen 1 H, Ur Leukocyte Esterase 500 H, Urine RBC 0 SEEN, Urine WBC 50-100 SEEN, Ur Squamous Epith Cells 0-5 SEEN, Ur Transition Epith Cell 0 SEEN, Ur Renal Epithelial Cell 0-5 SEEN, Urine Bacteria 1+, Urine Mucus 0 SEEN, Urine Osmolality 492, U Random Total Protein 46.3 H, Ur Random Sodium 48, Urine Creatinine 194.00, Protein/Creatinin Ratio 239 H, Urine Potassium 28.0, Urine Chloride 39 12/10/23 04:20: Glycated Hemoglobin Cancelled 12/10/23 04:30: WBC 6.0, RBC 1.48 L, Hgb 4.8 L*, Hct 15.0 L, MCV 101.4 H, MCH 32.4 H, MCHC 32.0, RDW Std Deviation 56.2 H, RDW Coeff of [place] 15.4 H, Plt Count 151, MPV 8.6, Immature Gran % (Auto) 1.500 H, Neut % (Auto) 67.0, Lymph % (Auto) 25.3, [place] % (Auto) 3.8, Eos % (Auto) 2.2, Baso % (Auto) 0.2, Absolute Neuts (auto) 4.1, Absolute Lymphs (auto) 1.53, Nucleated RBC % 0, Diff Path Review Reviewed, Atypical Lymphocytes 2+, Retic Count 6.31 H, Immature Retic Fraction 26.00 H, Retic Hgb Equivalent 30.9, Total Bilirubin 1.00, Direct Bilirubin 0.31 H, AST 40 H, ALT 12 L, Alkaline Phosphatase 62, Lactate Dehydrogenase 593 H, Total Protein 4.9 L, Albumin 2.2 L, Globulin 2.7 12/10/23 11:50: POC Glucose 158 H Micro: Microbiology 12/09/23 21:00 Wound - Leg, Left Wound Culture - Preliminary Staphylococcus aureus Beta streptococcus Gram positive organism 12/10/23 03:01 Mucosa - Nasopharyngeal SARS-CoV-2, Influenza & RSV (PCR) - Final Imaging Radiology Impression Chest X-Ray 12/09/23 15:30 IMPRESSION: Moderate-sized hiatal hernia. The lungs are clear. Electronically Signed: Victor Manuel Gerber MD at 15:44 EDT ,
[2023-12-10 14:31] LABS: Absolute Lymphocyte Count 0.87 X10^3/uL (0.83-4.51); Absolute Neutrophil Count 5.2 X10^3/uL (2.0-7.7); Basophil# 0.02 X10^3/uL; Basophil% 0.3 % (0-1); Hematocrit 25.2 % (37-47); Hemoglobin 8.3 g/dL (12.0-15.0); Lymphocyte # 0.87 X10^3/ul (0.83-4.51); Lymphocyte % 13.6 % (19-41); Mean Corp Hgb Conc 32.9 g/dL (32-36); Mean Corpuscular Hgb 31.2 pg (27.0-32.0); Mean Corpuscular Volume 94.7 fL (81-99); Mean Platelet Vol. 9.6 fl (6.2-12.0); Monocyte# 0.18 X10^3/uL; Monocyte% 2.8 % (0-10); NRBC Flagged by Analyzer 0 % (0-5); Neutrophil # 5.23 X10^3/uL (2.7-7.7); Neutrophil % 81.9 % (47-70); POSITIVE MORPHOLOGY YES; Platelet Count 177 K/mm3 (150-450); RBC Distribution Width CV 15.9 % (11.6-14.6); RBC Distribution Width SD 54.7 fl (35.1-43.9); Red Blood Count 2.66 M/mm3 (4.2-5.4); White Blood Count 6.4 K/mm3 (4.4-11.0)
[2023-12-10 14:45] LABS: Differential Indicated SCAN CRITERIA MET
[2023-12-10] MEDS: APIXABAN 5 MG TABLET 10 MG PO ×2 (15:26→20:49)
[2023-12-10 15:52] LABS: Differential Comment SCANNED; Reactive Lymphocyte 1+
[2023-12-10 17:18] LABS: Bedside Glucose 167 mg/dL (74-106)
[2023-12-10] MEDS: Ceftriaxone 2 GM in 0.9% Normal Saline (50mL MB+) 50 ML IV (19:41)
[2023-12-10 21:11] LABS: Bedside Glucose 139 mg/dL (74-106)
[2023-12-11] VITALS (14 sets, daily range): BP systolic 92–114; BP diastolic 50–60; PULSE 48–72; RESP 15–21; TEMP 36.1–37.1; O2SAT 94–100; BMI 40.3
[2023-12-11 03:29] LABS: Absolute Lymphocyte Count 1.28 X10^3/uL (0.83-4.51); Absolute Neutrophil Count 6.3 X10^3/uL (2.0-7.7); Basophil# 0.03 X10^3/uL; Basophil% 0.4 % (0-1); Hematocrit 25.1 % (37-47); Hemoglobin 8.1 g/dL (12.0-15.0); Lymphocyte # 1.28 X10^3/ul (0.83-4.51); Lymphocyte % 16.2 % (19-41); Mean Corp Hgb Conc 32.3 g/dL (32-36); Mean Corpuscular Hgb 30.5 pg (27.0-32.0); Mean Corpuscular Volume 94.4 fL (81-99); Mean Platelet Vol. 9.5 fl (6.2-12.0); Monocyte# 0.24 X10^3/uL; NRBC Flagged by Analyzer 0 % (0-5); Neutrophil # 6.26 X10^3/uL (2.7-7.7); Neutrophil % 79.4 % (47-70); Platelet Count 183 K/mm3 (150-450); RBC Distribution Width CV 16.5 % (11.6-14.6); RBC Distribution Width SD 56.5 fl (35.1-43.9); Red Blood Count 2.66 M/mm3 (4.2-5.4); White Blood Count 7.9 K/mm3 (4.4-11.0)
[2023-12-11 03:50] LABS: ALB/GLOB Ratio 0.7 RATIO (0.9-2.4); AST(SGOT) 35 U/L (15-37); Alanine Aminotransfer ALT/SGPT 16 U/L (13-56); Albumin, Serum 2.2 g/dL (3.2-5.0); Alkaline Phosphatase 67 U/L (45-117); Anion Gap 6 (5-15); BUN 48 mg/dL (7-18); BUN/Creat Ratio 26.5 RATIO (10-20); Calcium,Total 8.1 mg/dL (8.5-10.1); Chloride 114 mmol/L (98-107); Creatinine, Serum 1.81 mg/dL (0.55-1.02); EST Glomerular Filtration Rate 29 mL/min (>60); Est Glom Filt Rate - Afr Amer 35 mL/min (>60); Estimated Creatinine Clearance 28.59 ml/min; Globulin 3.2 g/dL (2.2-4.2); Glucose 117 mg/dL (74-106); LDH 718 U/L (84-246); Potassium 3.7 mmol/L (3.5-5.1); Protein, Total 5.4 g/dL (6.4-8.2); Sodium Level 140 mmol/L (136-145)
[2023-12-11 05:07] LABS: Haptoglobin < 10 mg/dL (42-346)
[2023-12-11] MEDS: Vancomycin HCl 750 MG in 0.9% Normal Saline (250mL Bag) 250 ML 250 MG IV (05:31)
[2023-12-11] MEDS: 0.9% Saline Lock 10 ML Syringe IV ×2 (05:31→20:23)
[2023-12-11] MEDS: Folic Acid 1 MG Tablet PO (07:56)
[2023-12-11] MEDS: APIXABAN 5 MG TABLET 10 MG PO ×2 (07:57→20:22)
[2023-12-11] MEDS: Cholecalciferol (VIT D3) 25 MCG TABLET (1,000 UNITS) PO (07:57)
[2023-12-11] MEDS: predniSONE 20 MG Tablet 100 MG PO (07:57)
--- NOTE | 2023-12-11 07:58 | PCM.PROGNOTE ---
Subjective Subjective Patient seen early this a.m. resting in bed sitting up watching television. She states that she is feeling a lot better after transfusion. It is noted that her color has improved. She continues to elevate lower extremities at times of rest. Denies constitutional symptoms. Denies further complaints. Objective Data Objective Data Vital Signs: Vital Signs Temp Pulse Resp BP Pulse Ox O2 Del Method O2 Flow Rate 97.0 F L 66 19 H 98/54 L 100 Room Air 2 12/11/23 04:00 12/11/23 07:35 12/11/23 07:00 12/11/23 07:00 12/11/23 07:00 12/11/23 07:00 12/10/23 09:00 Oxygen Flow Rate (L/min) 2 Oxygen Delivery Method Room Air Weight: 96.9 kg Body Mass Index (BMI) 40.3 Intake & Output: Intake and Output for Last 24 Hours 12/09/23 12/10/23 12/11/23 23:59 23:59 23:59 Intake Total 1100 / 1100 3210.75 / 3410.75 565 / 565 Output Total 1550 / 1800 350 / 350 Balance 1100 / 1100 1660.75 / 1610.75 215 / 215 Lab / Micro Data 12/11/23 03:22 12/11/23 03:22 Labs: Laboratory Results - last 24 hr 12/09/23 15:15: Blood Type A NEGATIVE, Antibody Screen NEGATIVE, Antibody Identification NEGATIVE ANTIBODY PANEL, Crossmatch See Detail 12/10/23 03:40: Urine Chloride 39 12/10/23 04:30: Diff Path Review Reviewed 12/10/23 11:50: POC Glucose 158 H 12/10/23 14:05: WBC 6.4, RBC 2.66 L, Hgb 8.3 L, Hct 25.2 L, MCV 94.7 D, MCH 31.2, MCHC 32.9, RDW Std Deviation 54.7 H, RDW Coeff of [place] 15.9 H, Plt Count 177, MPV 9.6, Immature Gran % (Auto) 1.400 H, Neut % (Auto) 81.9 H, Lymph % (Auto) 13.6 L, [place] % (Auto) 2.8, Eos % (Auto) 0.0, Baso % (Auto) 0.3, Absolute Neuts (auto) 5.2, Absolute Lymphs (auto) 0.87, Nucleated RBC % 0, Differential Comment SCANNED, Reactive Lymphocytes 1+ 12/10/23 16:52: POC Glucose 167 H 12/10/23 20:48: POC Glucose 139 H 12/10/23 : Haptoglobin < 10 L 12/11/23 03:22: WBC 7.9, RBC 2.66 L, Hgb 8.1 L, Hct 25.1 L, MCV 94.4, MCH 30.5, MCHC 32.3, RDW Std Deviation 56.5 H, RDW Coeff of [place] 16.5 H, Plt Count 183, MPV 9.5, Immature Gran % (Auto) 1.000 H, Neut % (Auto) 79.4 H, Lymph % (Auto) 16.2 L, [place] % (Auto) 3.0, Eos % (Auto) 0.0, Baso % (Auto) 0.4, Absolute Neuts (auto) 6.3, Absolute Lymphs (auto) 1.28, Nucleated RBC % 0, Sodium 140, Potassium 3.7, Chloride 114 H, Carbon Dioxide 20.0 L, Anion Gap 6, BUN 48 H, Creatinine 1.81 H, Estim Creat Clear Calc 28.59, Est GFR (MDRD) Af Amer 35 L, Est GFR (MDRD) Non-Af 29 L, BUN/Creatinine Ratio 26.5 H, Glucose 117 H, Calcium 8.1 L, Total Bilirubin 0.60, AST 35, ALT 16, Alkaline Phosphatase 67, Lactate Dehydrogenase 718 H, Total Protein 5.4 L, Albumin 2.2 L, Globulin 3.2, Albumin/Globulin Ratio 0.7 L Micro: Microbiology 12/09/23 21:00 Wound - Leg, Left Gram Stain - Final 12/09/23 21:00 Wound - Leg, Left Wound Culture - Preliminary Staphylococcus aureus Beta streptococcus Gram positive organism 12/09/23 21:00 Wound - Leg, Left Skin and Soft Tissue MRSA/MSSA (PCR - Final Staphylococcus aureus 12/10/23 03:01 Mucosa - Nasopharyngeal SARS-CoV-2, Influenza & RSV (PCR) - Final Radiography Diagnostic Testing: Radiology Impression Venous Doppler Study 12/09/23 19:29 Interpretation Summary Acute deep vein thrombosis is noted in the left gastrocnemius vein. Chronic venous changes are noted in the left popliteal vein, which is partially compressible and demonstrates bright intraluminal echogenicity. The remainder of the left lower extremity deep venous system is patent and compressible. Deep veins of the right lower extremity are patent and compressible segmentally. There is no evidence of right lower extremity deep vein thrombosis. Valvular competence appears intact within the proximal deep venous systems bilaterally. The right great saphenous vein appears patent and compressible segmentally. The left great saphenous vein is absent, consistent with a previous venous ablation procedure. Ordering Physician: Skip Benavides Referring Physician: Jeferson Vega M.D. Performed By: Neda Macdonald RVT Physical Exam Const alert, oriented x3 and no apparent distress General Appearance: cooperative HEENT normocephalic Eyes General Eye: normal appearance of both eyes Neck General: normal visual inspection Lymph Lymphatic: no lymphadenopathy noted and no lymphedema noted Resp normal respiratory effort Cardio regular rate and regular rhythm Extremity no calf tenderness and no pedal edema Extremity Narrative: Vascular: DP and PT pulses palpable right lower extremity, DP weakly palpable left lower extremity, PT palpable left lower extremity. CFT less than 4 seconds to the digits. Normal temperature gradient. Hair growth is absent to digits. Neurologic: Epicritic sensation intact. No focal deficits noted. Musculoskeletal: Right lower extremity weakness secondary to polio. Left lower extremity muscle strength 5 of 5 age-appropriate. Dermatologic: Left lower extremity demonstrates chronic venous stasis with hemosiderin deposition and erythema at the anterior aspect of the lower extremity. There are small circumferential pressure ulcerations secondary to compression stocking that had rolled down and got stuck. Ulcerations demonstrate superficial layers that are granular in nature to some areas of ulcerations with scant yellow fibrotic tissue and some eschar around the border. No signs of infection. Erythema secondary to chronic venous stasis and pressure ulceration. Right lower extremity grossly normal. Nails 1 through 5 bilateral are thickened, deformed, discolored, with subungual debris's. Skin no rashes or lesions noted, skin turgor normal and no jaundice Neuro moves all extremities Assessment & Plan Assessment/Plan (1) Non-pressure chronic ulcer of left calf with fat layer exposed: (2) Chronic venous insufficiency: (3) Anemia: (4) Thrombocytopenia: (5) Generalized weakness: (6) Leg edema: (7) Tinea unguium: (8) Chronic pain of toe of right foot: (9) Chronic pain of toe of left foot: PLAN: Plan Patient seen and evaluated Left lower extremity: Left lower extremity demonstrates chronic venous stasis with hemosiderin deposition and erythema at the anterior aspect of the lower extremity. There are small circumferential pressure ulcerations secondary to compression stocking that had rolled down and got stuck. Ulcerations demonstrate superficial layers that are granular in nature to some areas of ulcerations with scant yellow fibrotic tissue and some eschar around the border. No signs of infection. Erythema secondary to chronic venous stasis and pressure ulceration WBC 7.9 A1c is pending Radiographs 12/09/2023 of the right foot demonstrates diffuse arthritis. No signs of infection. Reviewed venous studies performed 12/10/2023 demonstrating DVT in the left lower extremity. Patient on Eliquis now. Ulceration underwent selective debridement on 12/10/2023. Postdebridement cluster of ulceration measures 2.5 cm x 15 cm x 0.1 cm. Sites were painted with Betadine and dressed with Aquacel Ag and Kerlix. Compression achieved via Christopher wrap. Christopher wrap compression applied to right lower extremity. May readjust bilateral Christopher as needed to maintain compression. May change every other day. The etiology of thickened toenails was briefly reviewed including fungus or microtrauma. The nails 1, 2, 3, 4, and 5 of the left and right foot were debrided with a nail nipper after verbal consent was obtained without incident. Nails 1, 2, 3, 4, and 5 of the left and right foot were debrided in length and thickness to reduce pressure, potential fungal load, and to prevent wound formation. The patient tolerated this well. The patient elects proceed with palliative care only at this time with the nails and will hold off on further work-up. She is to continue to elevate lower extremities at all times of rest to aid in edema control Recommend continued use of compression stockings once ulcerations have healed. Compression recommended 20 to 30 mmHg. Recommended updating compression stockings to proper sizing as her previous stockings have rolled down her leg causing the ulceration. Medicine currently following for medical management, they are greatly appreciated Infectious disease following for antibiotic management Hematology following Wound nurse following for assistance with dressing changes Podiatry will continue to follow and monitor wound healing with reevaluation on Friday. No planned surgical intervention at this time. Recommend return to the wound care center continued care of lower extremity ulcerations if needed. Jr. Dorys Gregorio.P.M. [facility] [place] [phone]
[2023-12-11] MEDS: Pantoprazole Sodium 40 MG Tablet PO (07:59)
[2023-12-11] MEDS: Ceftriaxone 2 GM in 0.9% Normal Saline (50mL MB+) 50 ML IV (09:13)
--- NOTE | 2023-12-11 09:36 | PN_ITS ---
Subjective Subjective Patient seen and examined. She had no active complaints and felt well. Review of systems is otherwise negative. Objective Data Objective Data Vital Signs: Vital Signs Temp Pulse Resp BP Pulse Ox O2 Del Method O2 Flow Rate 97.4 F L 59 L 18 92/52 L 100 Room Air 2 12/11/23 08:00 12/11/23 09:00 12/11/23 09:00 12/11/23 09:00 12/11/23 09:00 12/11/23 09:00 12/10/23 09:00 Oxygen Flow Rate (L/min) 2 Oxygen Delivery Method Room Air Weight: 213 lb 10.047 oz Body Mass Index (BMI) 40.3 Intake & Output: Intake and Output for Last 24 Hours 12/09/23 12/10/23 12/11/23 23:59 23:59 23:59 Intake Total 1100 / 1100 3210.75 / 3410.75 565 / 565 Output Total 1550 / 1800 350 / 350 Balance 1100 / 1100 1660.75 / 1610.75 215 / 215 Lab / Micro Data 12/11/23 03:22 12/11/23 03:22 Labs: Laboratory Results - last 24 hr 12/09/23 15:15: Blood Type A NEGATIVE, Antibody Screen NEGATIVE, Antibody Identification NEGATIVE ANTIBODY PANEL, Crossmatch See Detail 12/10/23 04:30: Diff Path Review Reviewed 12/10/23 11:50: POC Glucose 158 H 12/10/23 14:05: WBC 6.4, RBC 2.66 L, Hgb 8.3 L, Hct 25.2 L, MCV 94.7 D, MCH 31.2, MCHC 32.9, RDW Std Deviation 54.7 H, RDW Coeff of Yamile 15.9 H, Plt Count 177, MPV 9.6, Immature Gran % (Auto) 1.400 H, Neut % (Auto) 81.9 H, Lymph % (Auto) 13.6 L, Harmon % (Auto) 2.8, Eos % (Auto) 0.0, Baso % (Auto) 0.3, Absolute Neuts (auto) 5.2, Absolute Lymphs (auto) 0.87, Nucleated RBC % 0, Differential Comment SCANNED, Reactive Lymphocytes 1+ 12/10/23 16:52: POC Glucose 167 H 12/10/23 20:48: POC Glucose 139 H 12/10/23 : Haptoglobin < 10 L 12/11/23 03:22: WBC 7.9, RBC 2.66 L, Hgb 8.1 L, Hct 25.1 L, MCV 94.4, MCH 30.5, MCHC 32.3, RDW Std Deviation 56.5 H, RDW Coeff of Yamile 16.5 H, Plt Count 183, MPV 9.5, Immature Gran % (Auto) 1.000 H, Neut % (Auto) 79.4 H, Lymph % (Auto) 16.2 L , Harmon % (Auto) 3.0, Eos % (Auto) 0.0, Baso % (Auto) 0.4, Absolute Neuts (auto) 6.3, Absolute Lymphs (auto) 1.28, Nucleated RBC % 0, Sodium 140, Potassium 3.7, Chloride 114 H, Carbon Dioxide 20.0 L, Anion Gap 6, BUN 48 H, Creatinine 1.81 H, Estim Creat Clear Calc 28.59, Est GFR (MDRD) Af Amer 35 L, Est GFR (MDRD) Non-Af 29 L, BUN/Creatinine Ratio 26.5 H, Glucose 117 H, Calcium 8.1 L, Total Bilirubin 0.60, AST 35, ALT 16, Alkaline Phosphatase 67, Lactate Dehydrogenase 718 H, T otal Protein 5.4 L, Albumin 2.2 L, Globulin 3.2, Albumin/Globulin Ratio 0.7 L Micro: Microbiology 12/09/23 21:00 Wound - Leg, Left Gram Stain - Final 12/09/23 21:00 Wound - Leg, Left Wound Culture - Preliminary Staphylococcus aureus Beta streptococcus Gram positive organism 12/09/23 21:00 Wound - Leg, Left Skin and Soft Tissue MRSA/MSSA (PCR - Final Staphylococcus aureus 12/10/23 03:01 Mucosa - Nasopharyngeal SARS-CoV-2, Influenza & RSV (PCR) - Final Radiography Diagnostic Testing: Radiology Impression Venous Doppler Study 12/09/23 19:29 Interpretation Summary Acute deep vein thrombosis is noted in the left gastrocnemius vein. Chronic venous changes are noted in the left popliteal vein, which is partially compressible and demonstrates bright intraluminal echogenicity. The remainder of the left lower extremity deep venous system is patent and compressible. Deep veins of the right lower extremity are patent and compressible segmentally. There is no evidence of right lower extremity deep vein thrombosis. Valvular competence appears intact within the proximal deep venous systems bilaterally. The right great saphenous vein appears patent and compressible segmentally. The left great saphenous vein is absent, consistent with a previous venous ablation procedure. Ordering Physician: Skip Benavides Referring Physician: Jeferson Vega M.D. Performed By: Neda Macdonald RVT Foot X-Ray 12/09/23 20:55 IMPRESSION: Mild degenerative arthrosis at the first MTP joint, tibiotalar joint, talonavicular joint, and subtalar joint. 1.3 cm smooth ossific fragment inferior to the distal fibula, probably the sequelae of a remote avulsion injury. Small plantar calcaneal spur. Soft tissue swelling surrounding the ankle. Electronically Signed: Carlos Puentes MD at 8:15 EDT , Physical Exam Const alert, oriented x3, no apparent distress and well nourished General Appearance: cooperative and well developed HEENT normocephalic, head/scalp atraumatic, moist oral mucous membranes and oropharynx normal Eyes PERRL and EOMs intact bilaterally Neck no lymphadenopathy Lymph Lymphatic: no lymphadenopathy noted and no lymphedema noted Resp normal respiratory effort, normal air movement and clear to auscultation bilaterally Cardio regular rate, regular rhythm, S1 normal heart sound, S2 normal heart sound and no murmurs Peripheral Pulses: pulses 2+ throughout GI normal to inspection, nondistended, normoactive bowel sounds, soft to palpation, non-tender and non-distended Extremity normal capillary refill, no clubbing, cyanosis or edema and no calf tenderness General Extremity: no tenderness to palpation of joints or extremities Skin General Skin Exam: no breakdown Neuro CN's II-XII intact bilaterally, no focal motor deficits, no sensory deficits noted and deep tendon reflexes 2+ bilaterally Motor Exam: strength 5/5 throughout and general weakness Psych thought process normal, cooperative and affect normal Appearance: appropriate Assessment & Plan Assessment/Plan (1) Autoimmune hemolytic anemia: (2) Anemia: (3) Acute hemolysis: PLAN: Plan #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 She is s/p tranfusion of 2 units of PRBCs * She does have a history of autoimmune hemolytic anemia since she has not been on treatment for several years now. * Hematology urgently consulted. LDH was elevated and direct Devonte test was also positive for IgG and complement. * She is currently on PO prednisone 1 g daily. * Iron profile showed iron saturation of 27.1 with iron of 39 but ferritin was elevated at 1756. Total bilirubin is however not elevated. * #UTI: Urinalysis showed evidence of UTI. Currently on IV ceftriaxone. Urine cultures and blood culture pending #DVT: * She complained of left calf pain on admission and duplex of lower extremities done showed acute DVT in the left gastrocnemius vein. * Discussed with hematology about whether we could anticoagulate her and per hematology she can be anticoagulated once there is no clear evidence of bleeding. * on eliquis. * # KATH on CKD IIIb: * Creatinine was 3.37 on admission. * Baseline from 2022 is 1.18. * Creatinine has trended down to 1.81 today with hydration * Appears to be prerenal. * Cr is down to baseline. * * # Left lower extremity venous ulcer with cellulitis: * Duplex as above. Wound care consulted. * Podiatry also consulted. * Was initially on IV aztreonam and linezolid but this was switched to aztreonam and vancomycin. ID also consulted. #Hypertension: HCTZ and lisinopril held due to KATH. IV hydralazine as needed #History of polio: Stable DVT prophylaxis:on anticoagulation due to DVT of LLE. Disposition: transfer out of ICU today to Med surg Charges/Coding Visit Charges Inpatient E&M: 13846 Subs Hosp L2
--- NOTE | 2023-12-11 10:50 | PCM.PN.ID ---
Physical Exam Narrative Feeling better, no fever, leg less sore Const alert and no apparent distress Resp normal air movement and clear to auscultation bilaterally Cardio regular rate and regular rhythm GI soft to palpation, non-tender and non-distended Extremity General Extremity: edema Skin Skin Narrative: LLE wrapped ID ID: Route of nutrition/ use of supplements: [] Nutritional Intake: [] IV Site: [] Mcnamara Catheter: [] Assessment & Plan Assessment/Plan (1) Cellulitis: PLAN: Cont with vanc/ceftriaxone for now. H/o hives with PCN and keflex, should be low risk cross reactivity with ceftriaxone; tolerating well so far. Wbc normal, KATH on CKD improved. Wound cx with staph aureus, strep, gram pos so far. Will follow (2) Venous stasis dermatitis of left lower extremity:
--- NOTE | 2023-12-11 14:00 | CASEMGMT ---
Therapy states to this RN CM that the pt did well and will be safe for DC home once MR. This RN CM to pt room to discuss DC planning. Pt is projected to DC tomorrow. At this time, the pt states that she feels safe returning home at time of DC and denies the need for HHC. However, pt states that her PCP gave her a prescription for OP therapy at . Pt states that she plans to attend OP Tx through after DC and denies needing a new Rx for this. Pt states that she will set up her own appt. PT is also recommending a FWW for home use. Pt is agreeable now. A verbal list of local in network DME companies provided to the pt at this time. Pt states that she prefers [facility]. Case Management to make referral.
[2023-12-11 17:13] LABS: Bedside Glucose 202 mg/dL (74-106)
[2023-12-11] MEDS: Insulin Lispro 100 UNIT/ML INSULN.PEN SC (17:35)
[2023-12-11 22:02] LABS: Bedside Glucose 131 mg/dL (74-106)
[2023-12-12 00:32] LABS: Bedside Glucose 114 mg/dL (74-106)
[2023-12-12 02:15] VITALS: BP 139/64; PULSE 57; RESP 16; TEMP 36.4; O2SAT 97
[2023-12-12 02:41] VITALS: BMI 39.6
[2023-12-12 05:35] LABS: Absolute Neutrophil Count 8.2 X10^3/uL (2.0-7.7); Basophil# 0.03 X10^3/uL; Basophil% 0.3 % (0-1); Hematocrit 25.5 % (37-47); Hemoglobin 8.2 g/dL (12.0-15.0); Lymphocyte % 17.3 % (19-41); Mean Corp Hgb Conc 32.2 g/dL (32-36); Mean Corpuscular Hgb 30.6 pg (27.0-32.0); Mean Corpuscular Volume 95.1 fL (81-99); Mean Platelet Vol. 9.1 fl (6.2-12.0); Monocyte# 0.32 X10^3/uL; Monocyte% 3.1 % (0-10); NRBC Flagged by Analyzer 0.2 % (0-5); Neutrophil # 8.15 X10^3/uL (2.7-7.7); Neutrophil % 78.1 % (47-70); POSITIVE MORPHOLOGY YES; Platelet Count 177 K/mm3 (150-450); RBC Distribution Width CV 16.5 % (11.6-14.6); RBC Distribution Width SD 56.7 fl (35.1-43.9); Red Blood Count 2.68 M/mm3 (4.2-5.4); White Blood Count 10.4 K/mm3 (4.4-11.0)
[2023-12-12 05:38] LABS: Differential Indicated SCAN CRITERIA MET
[2023-12-12 06:10] LABS: Vancomycin, Trough Level 15.3 ug/mL (5.0-15.0)
[2023-12-12 06:11] LABS: ALB/GLOB Ratio 0.8 RATIO (0.9-2.4); AST(SGOT) 20 U/L (15-37); Alanine Aminotransfer ALT/SGPT 14 U/L (13-56); Albumin, Serum 2.3 g/dL (3.2-5.0); Alkaline Phosphatase 62 U/L (45-117); Anion Gap 4 (5-15); BUN 53 mg/dL (7-18); BUN/Creat Ratio 28.3 RATIO (10-20); Calcium,Total 8.8 mg/dL (8.5-10.1); Chloride 114 mmol/L (98-107); Creatinine, Serum 1.87 mg/dL (0.55-1.02); EST Glomerular Filtration Rate 28 mL/min (>60); Est Glom Filt Rate - Afr Amer 34 mL/min (>60); Estimated Creatinine Clearance 27.38 ml/min; Globulin 2.8 g/dL (2.2-4.2); Glucose 120 mg/dL (74-106); LDH 549 U/L (84-246); Potassium 4.6 mmol/L (3.5-5.1); Protein, Total 5.1 g/dL (6.4-8.2); Sodium Level 143 mmol/L (136-145)
[2023-12-12 06:19] LABS: Atypical Lymphocyte 1+ %; Differential Comment SCANNED
[2023-12-12] MEDS: Vancomycin HCl 750 MG in 0.9% Normal Saline (250mL Bag) 250 ML 250 MG IV (06:30)
[2023-12-12] MEDS: 0.9% Saline Lock 10 ML Syringe IV (06:30)
--- NOTE | 2023-12-12 06:30 | PCM.RX.CS ---
Consult Antibiotic Management Pharmacy has been consulted to manage selected antibiotic: Vancomycin Type of Intervention Type of Consult: Follow-up Labs Labs: Sodium 143 mmol/L (136-145) 12/12/23 05:16 Potassium 4.6 mmol/L (3.5-5.1) 12/12/23 05:16 Chloride 114 mmol/L (98-107) H 12/12/23 05:16 Carbon Dioxide 25.0 mmol/L (21.0-32.0) 12/12/23 05:16 Anion Gap 4 (5-15) L 12/12/23 05:16 BUN 53 mg/dL (7-18) H 12/12/23 05:16 Creatinine 1.87 mg/dL (0.55-1.02) H 12/12/23 05:16 Est GFR (MDRD) Af Amer 34 mL/min (>60) L 12/12/23 05:16 Est GFR (MDRD) Non-Af 28 mL/min (>60) L 12/12/23 05:16 BUN/Creatinine Ratio 28.3 RATIO (10-20) H 12/12/23 05:16 Glucose 120 mg/dL (74-106) H 12/12/23 05:16 Vancomycin Trough 15.3 ug/mL (5.0-15.0) H 12/12/23 05:16 Microbiology Microbiology: Microbiology 12/09/23 21:00 Wound - Leg, Left Gram Stain - Final 12/09/23 21:00 Wound - Leg, Left Wound Culture - Preliminary Staphylococcus aureus Streptococcus group C Gram positive organism 12/09/23 21:00 Wound - Leg, Left Skin and Soft Tissue MRSA/MSSA (PCR - Final Staphylococcus aureus 12/10/23 03:01 Mucosa - Nasopharyngeal SARS-CoV-2, Influenza & RSV (PCR) - Final Pharmacy Plan for Drug Dosing Pharmacy Plan for Drug Dosing: Pharmacy Service will continue to monitor and adjust dosing as required. TROUGH 15.3 @ 24 HOURS. NO CHANGES, FOLLOW UP TROUGH IN 2 DAYS Follow-Up Labs Follow-Up Labs: Trough: Vancomycin Date/Time Labs Ordered Labs to be done on [date and time ordered]: 12/13 @ 0500
[2023-12-12 08:06] VITALS: BP 104/52; PULSE 51; RESP 18; TEMP 36.4; O2SAT 98
[2023-12-12] MEDS: predniSONE 20 MG Tablet 100 MG PO (08:13)
[2023-12-12] MEDS: Folic Acid 1 MG Tablet PO (08:14)
--- NOTE | 2023-12-12 08:24 | EKG12_ITS ---
Test Reason : BRADYCARDIA Blood Pressure : / mmHG Vent. Rate : 055 BPM Atrial Rate : 055 BPM P-R Int : 164 ms QRS Dur : 086 ms QT Int : 444 ms P-R-T Axes : 042 004 013 degrees QTc Int : 424 ms Sinus bradycardia Low voltage QRS Cannot rule out Anterior infarct , age undetermined Abnormal ECG When compared with ECG of 31-JUL-2022 07:46, Vent. rate has decreased BY 37 BPM Inverted T waves have replaced nonspecific T wave abnormality in Anterior leads QT has shortened Confirmed by Daniel Hamilton ([id number]), greeting card editor TYRONE ORTIZ ([id number]) on 12/15/2023 1:58:58 PM Referred By: HENRIQUE Confirmed By:Daniel Hamilton
[2023-12-12 08:43] LABS: Bedside Glucose 89 mg/dL (74-106)
[2023-12-12] MEDS: Ceftriaxone 2 GM in 0.9% Normal Saline (50mL MB+) 50 ML IV (09:37)
[2023-12-12] MEDS: Cholecalciferol (VIT D3) 25 MCG TABLET (1,000 UNITS) PO (09:37)
[2023-12-12] MEDS: Pantoprazole Sodium 40 MG Tablet PO (09:37)
[2023-12-12] MEDS: APIXABAN 5 MG TABLET 10 MG PO (09:37)
[2023-12-12 11:53] VITALS: BP 127/59; PULSE 64; RESP 18; TEMP 36.6; O2SAT 98
[2023-12-12 12:47] LABS: Bedside Glucose 121 mg/dL (74-106)
--- NOTE | 2023-12-12 13:04 | PCM.PN.ID ---
Physical Exam Narrative Feeling well, home today, leg less sore, no fever Const alert and no apparent distress General Appearance: cooperative Resp normal air movement and clear to auscultation bilaterally Cardio regular rate and regular rhythm GI soft to palpation, non-tender and non-distended Extremity General Extremity: edema Skin Skin Narrative: LLE wrapped ID ID: Route of nutrition/ use of supplements: [] Nutritional Intake: [] IV Site: [] Mcnamara Catheter: [] Assessment & Plan Assessment/Plan (1) Cellulitis: PLAN: On vanc/ceftriaxone. H/o hives with PCN and keflex, should be low risk cross reactivity with ceftriaxone; tolerating well so far. Wbc normal, KATH on CKD improved. Wound cx with MSSA, strep, coryne. Ok for home 5 days omnicef 300mg bid Will follow as needed (2) Venous stasis dermatitis of left lower extremity:
--- NOTE | 2023-12-12 13:56 | DCINST_ITS ---
Discharge Instructions Diet Discharge Diet: Low fat / Low cholesterol Activity Discharge Activity: Return to Normal Activity Weight Bearing Status: Weight bearing as tolerated Dressing / Incision Call your doctor if you observe: Fever of 101 or Higher, Shortness of breath, Swelling in the ankles, Increased palpitations (irregular heartbeat) and Uncontrolled pain Follow Up Care Test Results: Test results from this visit will be discussed in further detail at your follow- up appointment, if applicable. Discharge Plan Admission Admit Date/Time: 12/09/23 16:55 Primary Reason for Your Visit: acute hemolytic anemia, cellulitis of the lower extremity Attending Provider: Rachel Abebe Primary Care Provider: Jeferson Vega Consulting Providers: Skip Benavides; Nathaniel Luo; Abdias Schuster; Donavon Mcdermott; Sen England; Nathaniel Osorio; Ariel Smith; Carlos Anderson; Chris Whitehead; Joyce Leblanc SOFTWARE VALIDATION TECHNICIAN; Daniel Sherwood Instructions Patient Instructions: Hemolytic Anemia Ch, Cellulitis Discharge Orders/Prescriptions Prescriptions: New cefdinir 300 mg capsule 300 mg PO BID Qty: 10 0RF Continued aspirin 81 MG tablet,chewable 81 mg PO DAILY cholecalciferol (vitamin D3) [Vitamin D3] 1,000 UNIT capsule 1,000 unit PO DAILY Lisinopril/Hydrochlorothiazide [Zestoretic 20/12.5 Tablet] 20-12.5 MG tablet 2 tab PO DAILY Patient Comments: cetirizine [Zyrtec] 10 MG tablet 10 mg PO DAILY oxycodone-acetaminophen [Percocet] 5-325 mg tablet 1 tab PO Q8H PRN (Reason: pain) 5 Days Qty: 14 0RF Referrals / Follow Up: Sen England MD [Med Staff - Active Staff] - Within 2 Weeks Daniel Sherwood DPM [Med Staff - Active Staff] - Within 1 Week Jeferson Vega MD [Primary Care Provider] - In 1 Week Disposition Disposition (needs filled in before D/C Order can be placed): Home, Self Care
--- NOTE | 2023-12-12 13:57 | DS.PCM_ITS ---
Providers Date of Admission: 12/09/23 Date of Discharge: 12/12/23 Primary Care Physician: Dr. Jeferson Vega MD Consultations 12/09/23 20:46 Consult: Infectious Disease Routine Consulting Provider: Nathaniel Luo Reason for Consult: left leg venous ulcer with cellulitis, PCN allergy EMERGENT Consult: No Notified: Yes Date Notified: 12/09/23 Time Notified: 19:10 Method of Notification: Text Consult: Onc/Wound/windows application administrator Routine Comment: Reason for Consult:: Left lower leg superficial ulcer, venous Consult: Podiatry Routine Consulting Provider: Daniel Sherwood Reason for Consult: left venous ulcer EMERGENT Consult: No Notified: Yes Date Notified: 12/09/23 Time Notified: 15:00 Method of Notification: Verbal 12/10/23 05:29 Consult: Oncology/Hematology Routine Consulting Provider: [facility]) Reason for Consult: hemolytic anemia EMERGENT Consult: No Notified: Yes Date Notified: 12/10/23 Time Notified: 05:29 Method of Notification: Text Reason For Visit: KATH ON CKD, LEFT LEG CELLULITIS, ULCER Diagnosis Discharge Diagnosis (1) Cellulitis: Status: Acute Code(s): L03.90 - Cellulitis, unspecified (2) Venous stasis dermatitis of left lower extremity: Status: Acute Code(s): I87.2 - Venous insufficiency (chronic) (peripheral) Plan #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 She is s/p tranfusion of 2 units of PRBCs * She does have a history of autoimmune hemolytic anemia since she has not been on treatment for several years now. * Hematology urgently consulted. LDH was elevated and direct Devonte test was also positive for IgG and complement. * She is currently on PO prednisone 1 g daily. * Iron profile showed iron saturation of 27.1 with iron of 39 but ferritin was elevated at 1756. Total bilirubin is however not elevated. * #UTI: Urinalysis showed evidence of UTI. Currently on IV ceftriaxone. Urine cultures and blood culture pending #DVT: * She complained of left calf pain on admission and duplex of lower extremities done showed acute DVT in the left gastrocnemius vein. * Discussed with hematology about whether we could anticoagulate her and per hematology she can be anticoagulated once there is no clear evidence of bleeding. * on eliquis. * # KATH on CKD IIIb: * Creatinine was 3.37 on admission. * Baseline from 2022 is 1.18. * Creatinine has trended down to 1.81 today with hydration * Appears to be prerenal. * Cr is down to baseline. * * # Left lower extremity venous ulcer with cellulitis: * Duplex as above. Wound care consulted. * Podiatry also consulted. * Was initially on IV aztreonam and linezolid but this was switched to aztreonam and vancomycin. ID also consulted. #Hypertension: HCTZ and lisinopril held due to KATH. IV hydralazine as needed #History of polio: Stable DVT prophylaxis:on anticoagulation due to DVT of LLE. Disposition: transfer out of ICU today to [facility] surg Medications at Discharge Home Medications Lisinopril/Hydrochlorothiazide [Zestoretic 20/12.5 Tablet] 2 tab PO DAILY bp 06/17/17 aspirin 81 mg chewable tablet 81 mg PO DAILY HEART HEALTH 06/17/17 cholecalciferol (vitamin D3) 25 mcg (1,000 unit) capsule (Vitamin D3) 1,000 unit PO DAILY SUPPLEMENT 06/17/17 cetirizine 10 mg tablet (Zyrtec) 10 mg PO DAILY ALLERGIES 06/18/17 oxycodone-acetaminophen 5 mg-325 mg tablet (Percocet) 1 tab PO Q8H PRN pain 5 days #14 tabs 08/06/22 apixaban 5 mg (74 tabs) tablets in a dose pack (Eliquis DVT-PE Treat 30D Start) 5 mg PO BID #74 tabs 12/12/23 cefdinir 300 mg capsule 300 mg PO BID #10 caps 12/12/23 prednisone 50 mg tablet 100 mg (2 x 50 mg) PO DAILY #14 tabs 12/12/23 Hospital Course Operations None Procedures None Summary of Care Provided Minutes Spent on Discharge: 55 Hospital Course: Patient is a 73-year-old female with a past medical history as outlined was admitted through the ED on 12/09/2023 with a complaint of generalized fatigue and weakness for about 3 weeks to a month prior to admission. She did have a history of autoimmune hemolytic anemia diagnosed about 10 years prior but says she had been following up with hematology but was discharged from the service because she was doing well. She also had a chronic left lower extremity ulcer which have been going on for about a month. She had not been following up with the wound center. She had a history of varicose veins and venous valvular competence not had surgery for this in the past. She was initially admitted for KATH on CKD stage IIIb and a left lower extremity venous ulcer with concomitant cellulitis. She was started on IV aztreonam and linezolid based on antibiotic sensitivities. However hospital course was complicated by acute on chronic anemia as patient's hemoglobin dropped overnight from around 8-4.8. Her LDH and haptoglobin were also elevated so there was concern for hemolysis. She was started on IV steroids. She was transfused with 2 units of PRBCs. Her hemoglobin stabilised to her baseline of ~ 8. ID and podiatry were also consulted o/a of the LLE ulcer. Her KATH on CKD improved with hydration. Wound cultures gew MSSA, Strep and Corynebacter she was transitioned to p.o. Omnicef 300 mg twice daily by ID. She remained stable and was discharged home on 12/12/2023. She is follow-up with her primary care doctor and follow-up with her PCP and hematology within 1-2 weeks. Per discussion with Dr England, she also discharged on p.o. prednisone 100 mg daily for [address] England she would need to be on a high dose prednisone be tapered down slowly over the next 2 to 3 months. She will follow-up with him within a week and the dose will be adjusted then. Patient seen and examined prior to discharge. She felt much better and had no complaints. She had an uneventful night. Review of systems otherwise negative. Labs and vitals reviewed. Home medication reviewed and reconciled. Physical Exam Const alert, oriented x3, no apparent distress and well nourished General Appearance: cooperative, comfortable, well kempt and well developed Orientation / Consciousness: awake HEENT normocephalic, head/scalp atraumatic, hearing grossly normal bilaterally, moist oral mucous membranes and oropharynx normal Mouth: oral and palatal mucosa normal Eyes PERRL and EOMs intact bilaterally Neck no lymphadenopathy and supple Lymph Lymphatic: no lymphadenopathy noted and no lymphedema noted Resp normal respiratory effort, normal air movement and clear to auscultation bilaterally Cardio regular rate, regular rhythm, S1 normal heart sound, S2 normal heart sound and no murmurs Peripheral Pulses: pulses 2+ throughout GI normal to inspection, nondistended, normoactive bowel sounds, soft to palpation, non-tender and non-distended Extremity normal to inspection, full ROM, normal capillary refill, no clubbing, cyanosis or edema and no calf tenderness General Extremity: no tenderness to palpation of joints or extremities Skin no rashes or lesions noted and no wounds General Skin Exam: no breakdown Neuro oriented x3, CN's II-XII intact bilaterally, moves all extremities, no focal motor deficits, no sensory deficits noted and deep tendon reflexes 2+ bilaterally Sensorium / Orientation: awake and alert Motor Exam: strength 5/5 throughout and general weakness Psych thought process normal, cooperative and affect normal Appearance: appropriate Weight / BMI Weight Weight: 209 lb 10.554 oz Body Mass Index (BMI) 39.6 ABG / Lab / Microbiology Data 12/12/23 05:16 12/12/23 05:16 Laboratory: Laboratory Results - last 24 hr 12/10/23 08:25: POC Glucose 114 H 12/11/23 16:52: POC Glucose 202 H 12/11/23 21:42: POC Glucose 131 H 12/12/23 05:16: WBC 10.4, RBC 2.68 L, Hgb 8.2 L, Hct 25.5 L, MCV 95.1, MCH 30.6, MCHC 32.2, RDW Std Deviation 56.7 H, RDW Coeff of [place]ile 16.5 H, Plt Count 177, MPV 9.1, Immature Gran % (Auto) 1.200 H, Neut % (Auto) 78.1 H, Lymph % (Auto) 17.3 L , [place] % (Auto) 3.1, Eos % (Auto) 0.0, Baso % (Auto) 0.3, Absolute Neuts (auto) 8.2 H, Absolute Lymphs (auto) 1.80, Nucleated RBC % 0.2, Differential Comment SCANNED, Atypical Lymphocytes 1+, Sodium 143, Potassium 4.6, Chloride 114 H, Carbon Dioxide 25.0, Anion Gap 4 L, BUN 53 H, Creatinine 1.87 H, Estim Creat Clear Calc 27.38, Est GFR (MDRD) Af Amer 34 L, Est GFR (MDRD) Non-Af 28 L, B UN/Creatinine Ratio 28.3 H, Glucose 120 H, Calcium 8.8, Total Bilirubin 0.60, AST 20, ALT 14, Alkaline Phosphatase 62, Lactate Dehydrogenase 549 H, Total Protein 5.1 L, Albumin 2.3 L, Globulin 2.8, Albumin/Globulin Ratio 0.8 L, TSH 0.580, Vancomycin Trough 15.3 H 12/12/23 08:22: POC Glucose 89 12/12/23 12:29: POC Glucose 121 H Microbiology: Microbiology 12/10/23 Unknown Blood Culture (Wb) - Anticubital Right Blood Culture - Preliminary No growth in 48 hours. 12/10/23 03:40 Urine Catheter - Mcnamara Urine Culture - Preliminary Beta streptococcus Gram positive organism 12/09/23 21:00 Wound - Leg, Left Gram Stain - Final 12/09/23 21:00 Wound - Leg, Left Wound Culture - Final Staphylococcus aureus Streptococcus group C Corynebacterium striatum 12/09/23 21:00 Wound - Leg, Left Anaerobic Culture - Preliminary 12/09/23 21:00 Wound - Leg, Left Skin and Soft Tissue MRSA/MSSA (PCR - Final Staphylococcus aureus 12/10/23 03:01 Mucosa - Nasopharyngeal SARS-CoV-2, Influenza & RSV (PCR) - Final D/C Instructions Discharge Diet: Low fat / Low cholesterol Discharge Activity: Return to Normal Activity Weight Bearing Status: Weight bearing as tolerated Call your doctor if you observe: Fever of 101 or Higher, Shortness of breath, Swelling in the ankles, Increased palpitations (irregular heartbeat) and Uncontrolled pain Meaningful Use Info Meaningful Use Meaningful Use Diagnoses (Choose all that apply): None applicable Ischemic Stroke Statin Dosing Therapy Reference: STATIN DOSE THERAPY REFERENCE: * Patients > 75 years receive moderate or high dose statin therapy. * Patients 75 years or YOUNGER should receive HIGH intensity statin dose unless contraindicated. You will be required to document reason for non-treatment if statin daily dose does not meet guidelines. HIGH DOSE STATIN THERAPY DAILY Atorvastatin > than or = to 40 mg Rosuvastatin > than or = to 20 mg Amlodipine + Atorvastatin > than or = to 2.5/40 mg Ezetimibe + Simvastatin 10/80 mg Simvastatin 80mg Discharge Plan Admission Admit Date/Time: 12/09/23 16:55 Primary Reason for Your Visit: acute hemolytic anemia, cellulitis of the lower extremity Attending Provider: Rachel Abebe Primary Care Provider: Jeferson Vega Consulting Providers: Skip Benavides; Nathaniel Luo; Abdias Schuster; Donavon Mcdermott; Sen England; Nathaniel Osorio; Ariel Smith; Carlos Anderson; Crhis Whitehead; Joyce Leblanc TWISTER OPERATOR; Daniel Sherwood Instructions Patient Instructions: Cellulitis, Hemolytic Anemia Ch Discharge Orders/Prescriptions Prescriptions: New cefdinir 300 mg capsule 300 mg PO BID Qty: 10 0RF Eliquis DVT-PE Treat 30D Start 5 mg (74 tabs) tablets,dose pack 5 mg PO BID Qty: 74 3RF Rx Instructions: Take 2 tablets, (10 mg) twice daily for the first 7 days and then continue with 1 tablet 5 mg twice daily. prednisone 50 mg tablet 100 mg PO DAILY Qty: 14 0RF Continued aspirin 81 MG tablet,chewable 81 mg PO DAILY cholecalciferol (vitamin D3) [Vitamin D3] 1,000 UNIT capsule 1,000 unit PO DAILY Lisinopril/Hydrochlorothiazide [Zestoretic 20/12.5 Tablet] 20-12.5 MG tablet 2 tab PO DAILY Patient Comments: cetirizine [Zyrtec] 10 MG tablet 10 mg PO DAILY oxycodone-acetaminophen [Percocet] 5-325 mg tablet 1 tab PO Q8H PRN (Reason: pain) 5 Days Qty: 14 0RF Referrals / Follow Up: Sen England MD [Med Staff - Active Staff] - Within 2 Weeks Daniel Sherwood DPM [Med Staff - Active Staff] - Within 1 Week Jeferson Vega MD [Primary Care Provider] - In 1 Week Disposition Disposition (needs filled in before D/C Order can be placed): Home, Self Care Charges/Coding Visit Charges Inpatient E&M: 31729 Disch Hosp >30min
--- NOTE | 2023-12-12 14:09 | CASEMGMT ---
Patient has order for discharge. RN CM in to discuss needs at discharge. Patient declines walker at discharge, states she has not been using walker at hospital. Patient is up independent in room. Patient denies needs or help at discharge. RN CM instructed patient to follow-up with PCP should needs arise in the future, patient voiced understanding. Patient had no further questions or concerns.
== END 2023-12-12 15:00 | disposition home or self-care (01) | DRG 982 ==
LOC: ED 16:43 → MS3 17:10 → ICU 12-10 05:46
PROVIDERS: Internal Medicine; Internal Medicine Hematology & Oncology; Admitting Provider Internal Medicine; Emergency Provider Emergency Medicine; PCP Internal Medicine; Visit Provider Student in an Organized Health Care Education/Training Program
DX: N17.9 Acute kidney failure, unspecified (principal); D59.11 Warm autoimmune hemolytic anemia; L03.116 Cellulitis of left lower limb; L97.221 Non-pressure chronic ulcer of left calf limited to breakdown of skin; N39.0 Urinary tract infection, site not specified; D69.6 Thrombocytopenia, unspecified; I82.462 Acute embolism and thrombosis of left calf muscular vein; N18.32 Chronic kidney disease, stage 3b; I12.9 Hypertensive chronic kidney disease with stage 1 through stage 4 chronic kidney disease, or unspecified chronic kidney disease; E66.9 Obesity, unspecified; I83.022 Varicose veins of left lower extremity with ulcer of calf; K44.9 Diaphragmatic hernia without obstruction or gangrene; I87.2 Venous insufficiency (chronic) (peripheral); R73.9 Hyperglycemia, unspecified; Z86.73 Personal history of transient ischemic attack (TIA), and cerebral infarction without residual deficits; Z79.82 Long term (current) use of aspirin; Z79.899 Other long term (current) drug therapy; Z68.38 Body mass index [BMI] 38.0-38.9, adult
CPT/HCPCS: 36415; 71045; 73630; 80048; 80053; 80076; 80202; 81001; 82436; 82570; 82728; 82962; 83010; 83036; 83540; 83550; 83605; 83615; 83735; 83935; 84100; 84133; 84145; 84156; 84300; 84443; 85025; 85045; 86140; 86850; 86870; 86880; 86900; 86901; 86920; 86921; 86922; 87040; 87070; 87075; 87077; 87086; 87088; 87186; 87205; 87631; 87640; 93005; 93970; 94668; 97162; 97166; 97802; 99285; J2020; J7030; J7040; J7050; P9016; A4216; J0696; J3490

== ENCOUNTER 2023-12-18 09:00 | Outpatient (RCR) | payer MEDICARE, SELFPAY ==
--- NOTE | 2023-12-18 09:12 | PCM.WC.HP ---
History of Present Illness Date of Service: 12/18/23 Chief Complaint: Venous stasis ulceration, chronic venous insufficiency, varicose veins with inflammation and ulceration, venous hypertension with inflammation and ulceration, venous stasis dermatitis - Left lower extremity History of Wound: DAVID PATTON, is a 73 F who presents to [facility] on 12/09/2023 with complaint of generalized weakness and fatigue for at least 4 weeks duration. She was previously diagnosed with hemolytic anemia by Dr. Tay 10 years ago and her weakness feels the same. Examination in the ER demonstrates an anterior left lower extremity ulceration. Patient reports that she does wear compression stockings and unfortunately the left stocking did roll down her leg became stuck causing circumferential ulcerations. She denies going to the wound care center for treatment of the ulcerations, but has been seen there in the past for venous ulcerations by Dr. Burrows. She denied F/C/chills/SOB/fever. Also denies dysuria and hematuria and chest pain. Workup in the ED did demonstrate neutropenia 3.3, thrombocytopenia, and acute kidney injury BUN of 66. Following admission overnight hemoglobin did decrease from 13.3 down to 4.8 and she was transferred to the ICU with hematology follow up and did receive transfusion which did help. Podiatry was following during admission for left lower extremity ulceration and she did undergo selective debridement at that time. Following discharge she was referred to the wound care center for continued follow of her lower extremity ulcerations. Patient states that she is feeling better since leaving the hospital. She currently denies N/V/F/chills. Denies further complaints. [facility] Medical History (Updated 12/17/23 @ 09:56 by Gladys Alcantar) Hx of post-polio syndrome Kidney disease Venous stasis dermatitis of left lower extremity Leg edema Leg swelling Venous stasis dermatitis of left lower extremity Chronic venous hypertension with inflammation involving left side Varicose veins with inflammation Chronic venous insufficiency Wears dentures Wears glasses Stroke/cerebrovascular accident History of hiatal hernia Gastric reflux Non-smoker Shortness of breath on exertion History of edema History of stress test Hypertension Chronic venous hypertension w/ulcer and inflammation involv left side Venous stasis dermatitis of both lower extremities Venous stasis ulcer Chronic venous insufficiency 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, right lower leg Chronic kidney disease, stage III (moderate) Cerebrovascular disease Home Medications ?Medication ?Instructions ?Recorded ?Last Taken ?Type Lisinopril/Hydrochlorothiazide 2 tab PO DAILY bp 06/17/17 12/08/23 History [Zestoretic 20/12.5 Tablet] aspirin 81 mg chewable tablet 81 mg PO DAILY HEART HEALTH 06/17/17 12/08/23 History cholecalciferol (vitamin D3) 25 1,000 unit PO DAILY SUPPLEMENT 06/17/17 12/08/23 History mcg (1,000 unit) capsule (Vitamin D3) cetirizine 10 mg tablet (Zyrtec) 10 mg PO DAILY ALLERGIES 06/18/17 12/08/23 History apixaban 5 mg (74 tabs) tablets in 5 mg PO BID #74 tabs 12/12/23 Unknown Rx a dose pack ([employer] DVT-PE Treat 30D Start) mometasone 50 mcg/actuation nasal 2 spray intranasal DAILY 12/17/23 Unknown History spray prednisone 10 mg tablet 80 mg (8 x 10 mg) PO DAILY #240 12/17/23 Unknown Rx tabs Allergy/AdvReac Type Severity Reaction Status Date / Time cephalexin (From Keflex) Allergy Hives Verified 12/17/23 09:51 Penicillins Allergy Hives Verified 12/17/23 09:51 Family History (Updated 12/17/23 @ 09:56 by Gladys Alcantar) Father Myocardial infarction Brother Heart disease Surgical History History of appendectomy History of 3 sections Status post appendectomy Social History (Updated 12/17/23 @ 09:55 by Gladys Alcantar) Smoking Status: Never smoker alcohol intake: current alcohol intake frequency: holidays/special occasions only ROS Constitutional Constitutional: Denies anorexia, chills, fatigue or fever(s) Eyes Eyes: Denies blurry vision, change in vision or double vision ENT HEENT: Denies dysphagia, nasal congestion or sore throat Cardiovascular Cardiovascular: Denies chest pain, claudication or palpitations Respiratory/Chest Respiratory/Chest: Denies cough, shortness of breath at rest or wheezing Gastrointestinal Gastrointestinal: Denies abdominal pain, constipation, diarrhea, nausea or vomiting Genitourinary Genitourinary: Denies dysuria, hematuria or urinary urgency Musculoskeletal Musculoskeletal: Denies joint pain, joint stiffness or joint swelling Integumentary Integumentary: Denies jaundice, lesions, pruritus or rash Neurologic Neurologic: Denies dizziness, numbness or seizures Psychiatric Psychiatric: Denies anxiety or depression Endocrine Endocrinology: Denies cold intolerance or heat intolerance Hematologic/Lymphatic Hematologic/Lymphatic: Denies easy bleeding or easy bruising Physical Exam Const alert, oriented x3 and no apparent distress General Appearance: cooperative HEENT normocephalic Eyes General Eye: normal appearance of both eyes Neck General: normal visual inspection Lymph Lymphatic: no lymphadenopathy noted and no lymphedema noted Resp normal respiratory effort Cardio regular rate and regular rhythm Extremity no calf tenderness and no pedal edema Extremity Narrative: Vascular: DP and PT pulses palpable right lower extremity, DP weakly palpable left lower extremity, PT palpable left lower extremity. CFT less than 4 seconds to the digits. Normal temperature gradient. Hair growth is absent to digits bilateral. Neurologic: Epicritic sensation intact. No focal deficits noted. Musculoskeletal: Right lower extremity weakness secondary to polio. Left lower extremity muscle strength 5 of 5 age-appropriate. Dermatologic: Left lower extremity demonstrates chronic venous stasis with hemosiderin deposition rubor at the anterior aspect of the lower extremity. There are small circumferential pressure ulceration secondary to compression stocking that had rolled down and got stuck. Ulceration demonstrates superficial layers that are granular in nature with some areas with scant yellow fibrotic tissue at the border. No signs of infection. Rubor is secondary to chronic venous stasis and pressure ulceration. Right lower extremity grossly normal. Skin no rashes or lesions noted, skin turgor normal and no jaundice Neuro moves all extremities Debridement Note Debridement Note Wound debrided: Left lower extremity Laterality: Left Wound Grade/Stage: [place] stage I Type of Debridement: Excisional debridement Anesthesia Used: 5% Lidocaine Gel Depth: Down to and including healthy tissue and in the subcutaneous layer Percentage of wound debrided: 100 Instrument Used: 3mm curette Tissue Removed: Fibrous, devitalized subcutaneous, biofilm, slough Severity: Fat Layer Exposed Amount of bleeding with debridement: Mild Bleeding Controlled with: Compression and gauze Patient tolerated procedure: Patient tolerated procedure well Assessment/Plan Assessment/Plan (1) Non-pressure chronic ulcer of left calf with fat layer exposed: CODE(S): L97.222 - Non-pressure chronic ulcer of left calf with fat layer exposed (2) Venous stasis dermatitis of left lower extremity: CODE(S): I87.2 - Venous insufficiency (chronic) (peripheral) (3) Leg edema: CODE(S): R60.0 - Localized edema PLAN: Plan Patient seen and evaluated Pre-debridement: Lateral LLE cluster: 1.4 cm x 4.5 cm x 0.1 cm; Anterior LLE cluster: 1.9 cm x 11.1 cm x 0.1 cm Ulceration was debrided as noted in the clinical panel above. Postdebridement measurement was Lateral LLE cluster: 1.5 cm x 4.6 cm x 0.1 cm; Anterior LLE cluster: 2.0 cm x 11.2 cm x 0.1 cm. No signs of infection. Ulceration dressed with hydrogel, Adaptic, Aquacel Ag and dry sterile dressing. Her compression stocking was reapplied. She does continue to wear compression stocking to the right lower extremity. There is a noted improvement in the ulceration size versus her hospitalization last week. She is to continue to elevate lower extremities at all times of rest to aid in edema control Recommend continued use of compression stockings once ulcerations have healed. Compression recommended 20 to 30 mmHg. Recommended updating compression stockings to proper sizing as her previous stockings have rolled down her leg causing the ulceration. Discussed signs and symptoms of infection. Discussed if she notices increasing redness about the ulcer sites that moves up the leg or if red streaking is noted up the leg, purulent drainage from the wound sites, increasing foul odor from the wound, or if she experiences fever greater than 101 degree accompanied by nausea, vomiting, chills of these are signs of a progressing infection and she should report to the ED to receive IV antibiotics and further evaluation. She is understanding of this today. The following work up and care recommendations were made: Dressing: Hydrogel, Adaptic, Aquacel Ag and dry sterile dressing. Compression stocking 20 to 30 mmHg to knee-high. Wash: Soap and water Tissue growth optimization: Hydrogel Offload: Compression stockings and elevation of the lower extremities. Vascular: Venous Doppler performed 12/09/2023 notes acute DVT left gastroc vein with chronic changes in the left popliteal vein. Edema: Continue elevation of lower extremities at all times of rest and continue compression stocking 20 to 30 mmHg. Infection: No signs of infection Imaging: Radiographs 12/09/2023 of the right foot demonstrates diffuse arthritis. No signs of infection. Pain: May take extra strength Tylenol for discomfort Host factors: Chronic venous stasis and lower extremity edema. I answered all the patient's questions. To return to the wound healing center in 1 week or call sooner if the patient has any questions or concerns.
[2023-12-18 09:25] VITALS: BP 134/63; PULSE 88; RESP 18; TEMP 36.6
--- NOTE | 2023-12-24 09:55 | WC ---
PHOTO 12/18/23 ALVARO GOODWIN
== END 2023-12-20 23:59 | disposition home or self-care (01) ==
LOC: WC 09:00
PROVIDERS: PCP Internal Medicine; Referring Provider Student in an Organized Health Care Education/Training Program; Visit Provider Student in an Organized Health Care Education/Training Program
DX: I83.222 Varicose veins of left lower extremity with both ulcer of calf and inflammation (principal); L97.222 Non-pressure chronic ulcer of left calf with fat layer exposed; N18.30 Chronic kidney disease, stage 3 unspecified; I83.12 Varicose veins of left lower extremity with inflammation; N17.9 Acute kidney failure, unspecified; D70.9 Neutropenia, unspecified; R60.0 Localized edema; D69.6 Thrombocytopenia, unspecified; Z79.82 Long term (current) use of aspirin; I12.9 Hypertensive chronic kidney disease with stage 1 through stage 4 chronic kidney disease, or unspecified chronic kidney disease; Z86.73 Personal history of transient ischemic attack (TIA), and cerebral infarction without residual deficits; K21.9 Gastro-esophageal reflux disease without esophagitis; I83.92 Asymptomatic varicose veins of left lower extremity; Z90.89 Acquired absence of other organs; Z86.12 Personal history of poliomyelitis
CPT/HCPCS: 11042; 11045; 99213; G0463

== ENCOUNTER 2024-01-15 09:00 | Outpatient (RCR) | payer MEDICARE, SELFPAY ==
[2023-12-21 00:57] VITALS: BP 134/63; PULSE 88; RESP 18; TEMP 36.6
[2023-12-25 09:02] VITALS: BP 166/83; PULSE 100; RESP 20; TEMP 36.4
--- NOTE | 2023-12-25 09:25 | PN.PCM_ITS ---
History of Present Illness Date of Service: 12/25/23 Chief Complaint: Venous stasis ulceration, chronic venous insufficiency, v aricose veins with inflammation and ulceration, venous hypertension with inflammation and ulceration, venous stasis dermatitis - Left lower extremity History of Wound: DAVID PATTON, is a 73 F who presents to [facility] on 12/09/2023 with complaint of generalized weakness and fatigue for at least 4 weeks duration. She was previously diagnosed with hemolytic anemia by Dr. Tay 10 years ago and her weakness feels the same. Examination in the ER demonstrates an anterior left lower extremity ulceration. Patient reports that she does wear compression stockings and unfortunately the left stocking did roll down her leg became stuck causing circumferential ulcerations. She denies going to the wound care center for treatment of the ulcerations, but has been seen there in the past for venous ulcerations by Dr. Burrows. She denied F/C/chills/SOB/fever. Also denies dysuria and hematuria and chest pain. Workup in the ED did demonstrate neutropenia 3.3, thrombocytopenia, and acute kidney injury BUN of 66. Following admission overnight hemoglobin did decrease from 13.3 down to 4.8 and she was transferred to the ICU with hematology follow up and did receive transfusion which did help. Podiatry was following during admission for left lower extremity ulceration and she did undergo selective debridement at that time. Following discharge she was referred to the wound care center for continued follow of her lower extremity ulcerations. Patient states that she is feeling better since leaving the hospital. She currently denies N/V/F/chills. Denies further complaints. Subjective Subjective This is a 73-year-old female who presents to the wound care center today for continued follow-up of a left lower extremity circumferential ulceration secondary to a compression stocking that had rolled down and got stuck. She continues daily dressing changes with the assistance of her sister, whom she is accompanied by today. Sister does state wound sites do look to be improving. Patient denies constitutional symptoms. Denies further complaints. Objective Data Objective Data Vital Signs: Vital Signs Temp Pulse Resp BP 97.5 F L 100 20 H 166/83 H 12/25/23 09:02 12/25/23 09:02 12/25/23 09:02 12/25/23 09:02 Physical Exam Const alert, oriented x3 and no apparent distress General Appearance: cooperative HEENT normocephalic Eyes General Eye: normal appearance of both eyes Neck General: normal visual inspection Lymph Lymphatic: no lymphadenopathy noted and no lymphedema noted Resp normal respiratory effort Cardio regular rate and regular rhythm Extremity normal capillary refill, no joint enlargement, no calf tenderness and no pedal edema Extremity Narrative: Vascular: DP and PT pulses palpable right lower extremity, DP weakly palpable left lower extremity, PT palpable left lower extremity. CFT less than 4 seconds to the digits. Normal temperature gradient. Hair growth is absent to digits bilateral. Neurologic: Epicritic sensation intact. No focal deficits noted. Musculoskeletal: Right lower extremity weakness secondary to polio. Left lower extremity muscle strength 5 of 5 age-appropriate. Dermatologic: Left lower extremity demonstrates chronic venous stasis with hemosiderin deposition rubor at the anterior aspect of the lower extremity. There are small circumferential pressure ulceration secondary to compression stocking that had rolled down and got stuck. Ulceration demonstrates superficial layers that are granular in nature with some areas with scant yellow fibrotic tissue at the border. No signs of infection. Rubor is secondary to chronic venous stasis and pressure ulceration. Right lower extremity grossly normal. Skin no rashes or lesions noted, skin turgor normal and no jaundice Neuro moves all extremities Debridement Note Debridement Note Wound debrided: Left lower extremity Laterality: Left Wound Grade/Stage: [place] stage I Type of Debridement: Excisional debridement Anesthesia Used: 5% Lidocaine Gel Depth: Down to and including healthy tissue and in the subcutaneous layer Percentage of wound debrided: 100 Instrument Used: 3mm curette Tissue Removed: Fibrous, devitalized subcutaneous, biofilm, slough Severity: Fat Layer Exposed Amount of bleeding with debridement: Mild Bleeding Controlled with: Compression and gauze Patient tolerated procedure: Patient tolerated procedure well Post-Debridement Measurements and Additional Note: Post-Debridement Measurements/Treatment - Nurse 1 - General Ulcer Assessment Start: 12/25/23 09:02 Freq: Status: Active Protocol: LOCO Activity Type Activity Date Activity User E-sign Co-sign Detail Recorded Client Recorded Date Recorded By Document 12/25/23 09:02 AZEB [id number] 12/25/23 09:13 AZEB 12/25/23 09:02 CRYSTAL - Today's Visit Information Type of service Follow-up Visit (Physician/EQUITIES ANALYST ) Arrival Mode Ambulatory Transfer Assistance None Patient Identification Verified (Name & Yes ) Patient Requires Transmission-Based No Precautions Vital Signs Temperature (97.8 F-99.1 F) 97.5 F L Temperature Source Temporal Pulse Rate (60-100) 100 Pulse Location Monitor Respiratory Rate (12-18) 20 H Respiratory rate source Observation Blood Pressure (90/60-120/80) 166/83 H Blood Pressure Mean (mm Hg) 110 Source Monitor History Since Last Visit- (Skip if this is Patient's initial visit) Have you changed medications since your No last visit? Any new allergies or adverse reactions No Had a fall/change in ADL's that may No increase risk of falls Signs or symptoms of abuse and/or No neglect since last visit Have you been in the hospital since your No last visit? Has dressing in place as prescribed Yes Has compression in place as prescribed Yes Has offloadiing in place as prescribed No Experienced any changes in pain level or No management Pain Scale: 0-10 Numeric Is Patient Pain Free? Yes WC - Nurse 1 - General Ulcer Measurement Start: 12/25/23 09:02 Freq: Status: Active Protocol: Activity Type Activity Date Activity User E-sign Co-sign Detail Recorded Client Recorded Date Recorded By Document 12/25/23 09:02 DL [id number] 12/25/23 09:13 DL 12/25/23 09:02 Wound Center Nurse 1 #4- LLE ANTERIOR CLUSTER -Current Size (cm) - Length 1.8 -Current Size (cm) - Width 10.3 -Current Size (cm) - Depth 0.2 -Total Square Cm 18.54 -Exudate Amt Medium -Exudate Type Serosanguineous -Wound Margin Distinct, Outline Attached -Granulation Amt Large (67-100%) -Granulation Quality Pale,[place] -Necrosis Amt Small (1-33%) -Necrotic Tissue Type Adherent Slough -Structure Exposed N/A -Texture (Lety-wound Skin Appearance) Scarring -Moisture (Lety-wound Skin Appearance) Dry/Scaly -Color (Lety-wound Skin Appearance) Hemosiderin Staining -Temperature (Lety-wound Skin No Abnormality Appearance) (Pt Warm) -Tenderness on Palpation (Lety-wound No Skin Appearance) -Ulcer Cleansing Soap and Water -Foul Odor after Cleansing No -Anesthetic Used 5% Lidocaine Gel 3. LLE lat cluster -Current Size (cm) - Length 1.8 -Current Size (cm) - Width 2.7 -Current Size (cm) - Depth 0.2 -Total Square Cm 4.86 -Exudate Amt Medium -Exudate Type Serosanguineous -Wound Margin Distinct, Outline Attached -Granulation Amt Large (67-100%) -Granulation Quality Pale,[place] -Necrosis Amt Small (1-33%) -Necrotic Tissue Type Adherent Slough -Structure Exposed N/A -Texture (Lety-wound Skin Appearance) Scarring -Moisture (Lety-wound Skin Appearance) Dry/Scaly -Color (Lety-wound Skin Appearance) Hemosiderin Staining -Temperature (Lety-wound Skin No Abnormality Appearance) (Pt Warm) -Ulcer Cleansing Soap and Water -Foul Odor after Cleansing No -Anesthetic Used 5% Lidocaine Gel Left Calf (cm) 40.5 Left Ankle (cm) 26.5 Assessment/Plan Assessment/Plan (1) Non-pressure chronic ulcer of left calf with fat layer exposed: CODE(S): L97.222 - Non-pressure chronic ulcer of left calf with fat layer exposed (2) Venous stasis dermatitis of left lower extremity: CODE(S): I87.2 - Venous insufficiency (chronic) (peripheral) (3) Leg swelling: CODE(S): M79.89 - Other specified soft tissue disorders PLAN: Plan Patient seen and evaluated Pre-debridement: Lateral LLE cluster: 1.9 cm x 2.6 cm x 0.1 cm; Anterior LLE cluster: 1.8 cm x 10.8 cm x 0.1 cm Ulceration was debrided as noted in the clinical panel above. Postdebridement measurement was Lateral LLE cluster: 2.0 cm x 2.7 cm x 0.1 cm; Anterior LLE cluster: 1.9 cm x 10.9 cm x 0.1 cm. No signs of infection. Ulceration dressed with hydrogel, Adaptic, Aquacel Ag and dry sterile dressing. Tubigrip compression applied to left lower extremity. She does continue to wear compression stocking to the right lower extremity. There is a noted improvement in the ulceration size versus previous visit. She is to continue to elevate lower extremities at all times of rest to aid in edema control Recommend continued use of compression stockings once ulcerations have healed. Compression recommended 20 to 30 mmHg. Recommended updating compression stockings to proper sizing as her previous stockings have rolled down her leg causing the ulceration. Discussed signs and symptoms of infection. Discussed if she notices increasing redness about the ulcer sites that moves up the leg or if red streaking is noted up the leg, purulent drainage from the wound sites, increasing foul odor from the wound, or if she experiences fever greater than 101 degree accompanied by nausea, vomiting, chills of these are signs of a progressing infection and she should report to the ED to receive IV antibiotics and further evaluation. She is understanding of this today. The following work up and care recommendations were made: Dressing: Hydrogel, Adaptic, Aquacel Ag and dry sterile dressing. Compression stocking 20 to 30 mmHg to knee-high. Wash: Soap and water Tissue growth optimization: Hydrogel Offload: Compression stockings and elevation of the lower extremities. Vascular: Venous Doppler performed 12/09/2023 notes acute DVT left gastroc vein with chronic changes in the left popliteal vein. Edema: Continue elevation of lower extremities at all times of rest and continue compression stocking 20 to 30 mmHg. Infection: No signs of infection Imaging: Radiographs 12/09/2023 of the right foot demonstrates diffuse arthritis. No signs of infection. Pain: May take extra strength Tylenol for discomfort Host factors: Chronic venous stasis and lower extremity edema. I answered all the patient's questions. To return to the wound healing center in 1 week or call sooner if the patient has any questions or concerns.
--- NOTE | 2024-01-08 09:10 | PN.PCM_ITS ---
History of Present Illness Date of Service: 01/08/24 Chief Complaint: Venous stasis ulceration, chronic venous insufficiency, v aricose veins with inflammation and ulceration, venous hypertension with inflammation and ulceration, venous stasis dermatitis - Left lower extremity History of Wound: DAVID PATTON, is a 73 F who presents to [facility] on 12/09/2023 with complaint of generalized weakness and fatigue for at least 4 weeks duration. She was previously diagnosed with hemolytic anemia by Dr. Tay 10 years ago and her weakness feels the same. Examination in the ER demonstrates an anterior left lower extremity ulceration. Patient reports that she does wear compression stockings and unfortunately the left stocking did roll down her leg became stuck causing circumferential ulcerations. She denies going to the wound care center for treatment of the ulcerations, but has been seen there in the past for venous ulcerations by Dr. Burrows. She denied F/C/chills/SOB/fever. Also denies dysuria and hematuria and chest pain. Workup in the ED did demonstrate neutropenia 3.3, thrombocytopenia, and acute kidney injury BUN of 66. Following admission overnight hemoglobin did decrease from 13.3 down to 4.8 and she was transferred to the ICU with hematology follow up and did receive transfusion which did help. Podiatry was following during admission for left lower extremity ulceration and she did undergo selective debridement at that time. Following discharge she was referred to the wound care center for continued follow of her lower extremity ulcerations. Patient states that she is feeling better since leaving the hospital. She currently denies N/V/F/chills. Denies further complaints. Subjective Subjective This is a 73-year-old female who presents to the wound care center today for continued follow-up of a left lower extremity circumferential ulceration secondary to a compression stocking that had rolled down and got stuck. She continues daily dressing changes with the assistance of her sister and son. She states family says wound is getting smaller. She reports missing last week due to having COVID. Feeling good today. Patient denies constitutional symptoms. Denies further complaints. Objective Data Objective Data Vital Signs: Vital Signs Temp Pulse Resp BP 97.5 F L 100 20 H 166/83 H 12/25/23 09:02 12/25/23 09:02 12/25/23 09:02 12/25/23 09:02 Physical Exam Const alert, oriented x3 and no apparent distress General Appearance: cooperative HEENT normocephalic Eyes General Eye: normal appearance of both eyes Neck General: normal visual inspection Lymph Lymphatic: no lymphadenopathy noted and no lymphedema noted Resp normal respiratory effort Cardio regular rate and regular rhythm Extremity normal capillary refill, no joint enlargement, no calf tenderness and no pedal edema Extremity Narrative: Vascular: DP and PT pulses palpable right lower extremity, DP weakly palpable left lower extremity, PT palpable left lower extremity. CFT less than 4 seconds to the digits. Normal temperature gradient. Hair growth is absent to digits bilateral. Neurologic: Epicritic sensation intact. No focal deficits noted. Musculoskeletal: Right lower extremity weakness secondary to polio. Left lower extremity muscle strength 5 of 5 age-appropriate. Dermatologic: Left lower extremity demonstrates chronic venous stasis with hemosiderin deposition rubor at the anterior aspect of the lower extremity. There are small circumferential pressure ulceration secondary to compression stocking that had rolled down and got stuck. Ulceration demonstrates superficial layers that are granular in nature with some areas with scant yellow fibrotic tissue at the border. No signs of infection. Rubor is secondary to chronic venous stasis and pressure ulceration. Right lower extremity grossly normal. Skin no rashes or lesions noted, skin turgor normal and no jaundice Neuro moves all extremities Debridement Note Debridement Note Wound debrided: Left lower extremity Laterality: Left Wound Grade/Stage: [place] stage I Type of Debridement: Excisional debridement Anesthesia Used: 5% Lidocaine Gel Depth: Down to and including healthy tissue and in the subcutaneous layer Percentage of wound debrided: 100 Instrument Used: 3mm curette Tissue Removed: Fibrous, devitalized subcutaneous, biofilm, slough Severity: Fat Layer Exposed Amount of bleeding with debridement: Mild Bleeding Controlled with: Compression and gauze Patient tolerated procedure: Patient tolerated procedure well Post-Debridement Measurements and Additional Note: Post-Debridement Measurements/Treatment CRYSTAL - Nurse 1 - General Ulcer Assessment Start: 12/25/23 09:02 Freq: Status: Active Protocol: LOCO Activity Type Activity Date Activity User E-sign Co-sign Detail Recorded Client Recorded Date Recorded By Document 12/25/23 09:02 AZEB [id number] 12/25/23 09:13 DL 12/25/23 09:02 CRYSTAL - Today's Visit Information Type of service Follow-up 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 Any new allergies or adverse reactions No Had a fall/change in ADL's that may No increase risk of falls Signs or symptoms of abuse and/or No neglect since last visit Have you been in the hospital since your No last visit? Has dressing in place as prescribed Yes Has compression in place as prescribed Yes Has offloadiing in place as prescribed No Experienced any changes in pain level or No management Pain Scale: 0-10 Numeric Is Patient Pain Free? Yes WC - Nurse 1 - General Ulcer Measurement Start: 12/25/23 09:02 Freq: Status: Active Protocol: Activity Type Activity Date Activity User E-sign Co-sign Detail Recorded Client Recorded Date Recorded By Document 12/25/23 09:02 DL [id number] 12/25/23 09:13 DL 12/25/23 09:02 Wound Center Nurse 1 #4- LLE ANTERIOR CLUSTER -Current Size (cm) - Length 1.8 -Current Size (cm) - Width 10.3 -Current Size (cm) - Depth 0.2 -Total Square Cm 18.54 -Exudate Amt Medium -Exudate Type Serosanguineous -Wound Margin Distinct, Outline Attached -Granulation Amt Large (67-100%) -Granulation Quality Pale,[place] -Necrosis Amt Small (1-33%) -Necrotic Tissue Type Adherent Slough -Structure Exposed N/A -Texture (Lety-wound Skin Appearance) Scarring -Moisture (Lety-wound Skin Appearance) Dry/Scaly -Color (Lety-wound Skin Appearance) Hemosiderin Staining -Temperature (Lety-wound Skin No Abnormality Appearance) (Pt Warm) -Tenderness on Palpation (Lety-wound No Skin Appearance) -Ulcer Cleansing Soap and Water -Foul Odor after Cleansing No -Anesthetic Used 5% Lidocaine Gel 3. LLE lat cluster -Current Size (cm) - Length 1.8 -Current Size (cm) - Width 2.7 -Current Size (cm) - Depth 0.2 -Total Square Cm 4.86 -Exudate Amt Medium -Exudate Type Serosanguineous -Wound Margin Distinct, Outline Attached -Granulation Amt Large (67-100%) -Granulation Quality Pale,[place] -Necrosis Amt Small (1-33%) -Necrotic Tissue Type Adherent Slough -Structure Exposed N/A -Texture (Lety-wound Skin Appearance) Scarring -Moisture (Lety-wound Skin Appearance) Dry/Scaly -Color (Lety-wound Skin Appearance) Hemosiderin Staining -Temperature (Lety-wound Skin No Abnormality Appearance) (Pt Warm) -Ulcer Cleansing Soap and Water -Foul Odor after Cleansing No -Anesthetic Used 5% Lidocaine Gel Left Calf (cm) 40.5 Left Ankle (cm) 26.5 WC - Nurse 2 - General Ulcer CM Notes Start: 12/25/23 09:02 Freq: Status: Active Protocol: Activity Type Activity Date Activity User E-sign Co-sign Detail Recorded Client Recorded Date Recorded By Document 12/25/23 09:27 [facility] [id number] 12/25/23 09:34 [facility] 12/25/23 09:27 Wound Center Nurse 2 #4- LLE ANTERIOR CLUSTER -Time 09:31 -Correct Patient Yes -Correct Side, Site, Position Yes -Correct Procedure Yes -Procedure Performed Yes -Type of Procedure Debridement -Clinical Debridement Subcutaneous -Tissue Removed Subcutaneous -Post Debridement (cm) - Length 1.9 -Post Debridement (cm) - Width 10.9 -Post Debridement (cm) - Depth 0.1 -Total Square (Post) (cm) 20.71 -Area of Debridement (cm) - Length 1.9 -Area of Debridement (cm) - Width 10.9 -Total Square (Area) (cm) 20.71 -Tunneling No -Undermining/Tunneling No -Circular Undermining No -Wound/Ulcer Outcome Not Healed -Ulcer Cleansing Rinsed/ Irrigated with Saline -Foul Odor after Cleansing No -Bioengineered Tissue No -Bleeding Controlled with Pressure -Treatment Response Procedure Tolerated Well -Debridement - Subq, 1st 20sq cm No 3. LLE lat cluster -Time 09:29 -Correct Patient Yes -Correct Side, Site, Position Yes -Correct Procedure Yes -Procedure Performed Yes -Type of Procedure Debridement -Clinical Debridement Subcutaneous -Tissue Removed Subcutaneous -Post Debridement (cm) - Length 2 -Post Debridement (cm) - Width 2.7 -Post Debridement (cm) - Depth 0.1 -Total Square (Post) (cm) 5.4 -Area of Debridement (cm) - Length 2 -Area of Debridement (cm) - Width 2.7 -Total Square (Area) (cm) 5.4 -Tunneling No -Undermining/Tunneling No -Circular Undermining No -Wound/Ulcer Outcome Not Healed -Bleeding Controlled with Pressure -Treatment Response Procedure Tolerated Well -Debridement - Subq, 1st 20sq cm Yes -Debridement, SubQ, ea addt'l 20sq cm 1 or part thereof Pain Scale: 0-10 Numeric Is Patient Pain Free? Yes - Nurse 3 - General Ulcer D/C NN Start: 12/25/23 09:02 Freq: Status: Active Protocol: Activity Type Activity Date Activity User E-sign Co-sign Detail Recorded Client Recorded Date Recorded By Document 12/25/23 09:51 DL [id number] 12/25/23 09:53 DL 12/25/23 09:51 Wound Care Center Nurse 3 #4- LLE ANTERIOR CLUSTER -Ulcer Cleansing Rinsed/ Irrigated with Saline -Foul Odor after Cleansing No -Primary Dressing Applied Aquacel AG 4x4, C Hydrogel ($), NonAdherent Contact Layer -Primary Dressing Covered/Secured with Dry Gauze & Roll Gauze, Secured with Tape -Aquacel AG 4x4 1 3. LLE lat cluster -Ulcer Cleansing Rinsed/ Irrigated with Saline -Foul Odor after Cleansing No -Primary Dressing Applied NonAdherent Contact Layer -Other Dressing hydrogel/ aquacel ag -Primary Dressing Covered/Secured with Dry Gauze & Roll Gauze, Secured with Tape johny -Tubular Bandage Single Layer -Size of Tubigrip Used Size E -Size E ($) 1 Treatment Response Procedure Tolerated Well Pain Scale: 0-10 Numeric Is Patient Pain Free? Yes - Visit Discharge Discharge Condition Stable Ambulatory Status Ambulatory Transportation Private Auto Assessment/Plan Assessment/Plan (1) Non-pressure chronic ulcer of left calf with fat layer exposed: CODE(S): L97.222 - Non-pressure chronic ulcer of left calf with fat layer exposed (2) Venous stasis dermatitis of left lower extremity: CODE(S): I87.2 - Venous insufficiency (chronic) (peripheral) (3) Leg swelling: CODE(S): M79.89 - Other specified soft tissue disorders PLAN: Plan Patient seen and evaluated Pre-debridement: Lateral LLE cluster: 1.8 cm x 2.4 cm x 0.1 cm; Anterior LLE cluster: 2.0 cm x 9.4 cm x 0.1 cm Ulceration was debrided as noted in the clinical panel above. Postdebridement measurement was Lateral LLE cluster: 1.9 cm x 2.5 cm x 0.1 cm; Anterior LLE cluster: 2.1 cm x 9.5 cm x 0.1 cm. No signs of infection. Ulceration dressed with hydrogel, Adaptic, Aquacel Ag and dry sterile dressing. Tubigrip compression applied to left lower extremity. She does continue to wear compression stocking to the right lower extremity. There is a decrease in the ulceration size versus previous visit. Continues healing well. Edema is improving. She is to continue to elevate lower extremities at all times of rest to aid in edema control Recommend continued use of compression stockings once ulcerations have healed. Compression recommended 20 to 30 mmHg. Recommended updating compression stock ings to proper sizing as her previous stockings have rolled down her leg causing the ulceration. Discussed signs and symptoms of infection. Discussed if she notices increasing redness about the ulcer sites that moves up the leg or if red streaking is noted up the leg, purulent drainage from the wound sites, increasing foul odor from the wound, or if she experiences fever greater than 101 degree accompanied by nausea, vomiting, chills of these are signs of a progressing infection and she should report to the ED to receive IV antibiotics and further evaluation. She is understanding of this today. The following work up and care recommendations were made: Dressing: Hydrogel, Adaptic, Aquacel Ag and dry sterile dressing. Compression stocking 20 to 30 mmHg to knee-high. Wash: Soap and water Tissue growth optimization: Hydrogel Offload: Compression stockings and elevation of the lower extremities. Vascular: Venous Doppler performed 12/09/2023 notes acute DVT left gastroc vein with chronic changes in the left popliteal vein. Edema: Continue elevation of lower extremities at all times of rest and continue compression stocking 20 to 30 mmHg. Infection: No signs of infection Imaging: Radiographs 12/09/2023 of the right foot demonstrates diffuse arthritis. No signs of infection. Pain: May take extra strength Tylenol for discomfort Host factors: Chronic venous stasis and lower extremity edema. I answered all the patient's questions. To return to the wound healing center in 1 week or call sooner if the patient has any questions or concerns.
[2024-01-08 09:20] VITALS: BP 137/73; PULSE 109; RESP 18; TEMP 36
--- NOTE | 2024-01-15 09:44 | PN.PCM_ITS ---
History of Present Illness Date of Service: 01/15/24 Chief Complaint: Venous stasis ulceration, chronic venous insufficiency, v aricose veins with inflammation and ulceration, venous hypertension with inflammation and ulceration, venous stasis dermatitis - Left lower extremity History of Wound: DAVID PATTON, is a 73 F who presents to [facility] on 12/09/2023 with complaint of generalized weakness and fatigue for at least 4 weeks duration. She was previously diagnosed with hemolytic anemia by Dr. Tay 10 years ago and her weakness feels the same. Examination in the ER demonstrates an anterior left lower extremity ulceration. Patient reports that she does wear compression stockings and unfortunately the left stocking did roll down her leg became stuck causing circumferential ulcerations. She denies going to the wound care center for treatment of the ulcerations, but has been seen there in the past for venous ulcerations by Dr. Burrows. She denied F/C/chills/SOB/fever. Also denies dysuria and hematuria and chest pain. Workup in the ED did demonstrate neutropenia 3.3, thrombocytopenia, and acute kidney injury BUN of 66. Following admission overnight hemoglobin did decrease from 13.3 down to 4.8 and she was transferred to the ICU with hematology follow up and did receive transfusion which did help. Podiatry was following during admission for left lower extremity ulceration and she did undergo selective debridement at that time. Following discharge she was referred to the wound care center for continued follow of her lower extremity ulcerations. Patient states that she is feeling better since leaving the hospital. She currently denies N/V/F/chills. Denies further complaints. Subjective Subjective This is a 73-year-old female who presents to the wound care center today for continued follow-up of a left lower extremity circumferential ulceration secondary to a compression stocking that had rolled down and got stuck. She continues daily dressing changes with the assistance of her sister and son. Accompanied by granddaughter today who reports her wounds continue improving. Patient denies constitutional symptoms. Denies further complaints. Objective Data Objective Data Vital Signs: Vital Signs Temp Pulse Resp BP 96.8 F L 109 H 18 137/73 H 01/08/24 09:20 01/08/24 09:20 01/08/24 09:20 01/08/24 09:20 Physical Exam Const alert, oriented x3 and no apparent distress General Appearance: cooperative HEENT normocephalic Eyes General Eye: normal appearance of both eyes Neck General: normal visual inspection Lymph Lymphatic: no lymphadenopathy noted and no lymphedema noted Resp normal respiratory effort Cardio regular rate and regular rhythm Extremity normal capillary refill, no joint enlargement, no calf tenderness and no pedal edema Extremity Narrative: Vascular: DP and PT pulses palpable right lower extremity, DP weakly palpable left lower extremity, PT palpable left lower extremity. CFT less than 4 seconds to the digits. Normal temperature gradient. Hair growth is absent to digits bilateral. Neurologic: Epicritic sensation intact. No focal deficits noted. Musculoskeletal: Right lower extremity weakness secondary to polio. Left lower extremity muscle strength 5 of 5 age-appropriate. Dermatologic: Left lower extremity demonstrates chronic venous stasis with hemos iderin deposition rubor at the anterior aspect of the lower extremity. There are small circumferential pressure ulceration secondary to compression stocking that had rolled down and got stuck. Ulceration demonstrates superficial layers that are granular in nature with some areas with scant yellow fibrotic tissue at the border. No signs of infection. Rubor is secondary to chronic venous stasis and pressure ulceration. Right lower extremity grossly normal. Skin no rashes or lesions noted, skin turgor normal and no jaundice Neuro moves all extremities Debridement Note Debridement Note Wound debrided: Left lower extremity Laterality: Left Wound Grade/Stage: Aguila stage I Type of Debridement: Excisional debridement Anesthesia Used: 5% Lidocaine Gel Depth: Down to and including healthy tissue and in the subcutaneous layer Percentage of wound debrided: 100 Instrument Used: 5mm curette Tissue Removed: Fibrous, devitalized subcutaneous, biofilm, slough Severity: Fat Layer Exposed Amount of bleeding with debridement: Mild Bleeding Controlled with: Compression and gauze Patient tolerated procedure: Patient tolerated procedure well Post-Debridement Measurements and Additional Note: Post-Debridement Measurements/Treatment CRYSTAL - Nurse 1 - General Ulcer Assessment Start: 12/25/23 09:02 Freq: Status: Active Protocol: LOCO Activity Type Activity Date Activity User E-sign Co-sign Detail Recorded Client Recorded Date Recorded By Document 12/25/23 09:02 DL [id number] 12/25/23 09:13 DL Document 01/08/24 09:20 DL [id number] 01/08/24 09:29 DL Document 01/15/24 09:06 RB [id number] 01/15/24 09:17 RB 12/25/23 01/08/2401/14/24 09:02 09:20 09:06 - Today's Visit Information Type of service Follow-up Visit Follow-up Visit Follow-up Visit (Physician/OIL BURNER INSTALLER (Physician/OIL BURNER INSTALLER (Physician/OIL BURNER INSTALLER ) ) ) Arrival Mode Ambulatory Ambulatory Ambulatory Transfer Assistance None None None Patient Identification Verified (Name & Yes Yes Yes ) Patient Requires Transmission-Based No No No Precautions Vital Signs Temperature (97.8 F-99.1 F) 97.5 F L 96.8 F L Temperature Source Temporal Temporal Pulse Rate (60-100) 100 109 H Pulse Location Monitor Monitor Respiratory Rate (12-18) 20 H 18 Respiratory rate source Observation Observation Blood Pressure (90/60-120/80) 166/83 H 137/73 H Blood Pressure Mean (mm Hg) 110 94 Source Monitor Monitor History Since Last Visit- (Skip if this is Patient's initial visit) Have you changed medications since your No No last visit? Any new allergies or adverse reactions No No Had a fall/change in ADL's that may No No increase risk of falls Signs or symptoms of abuse and/or No No neglect since last visit Have you been in the hospital since your No No last visit? Has dressing in place as prescribed Yes Yes Has compression in place as prescribed Yes Yes Has offloadiing in place as prescribed No Yes Experienced any changes in pain level or No No management Pain Scale: 0-10 Numeric Is Patient Pain Free? Yes Yes Yes - Nurse 1 - General Ulcer Measurement Start: 12/25/23 09:02 Freq: Status: Active Protocol: Activity Type Activity Date Activity User E-sign Co-sign Detail Recorded Client Recorded Date Recorded By Document 12/25/23 09:02 DL [id number] 12/25/23 09:13 DL Document 01/08/24 09:20 DL [id number] 01/08/24 09:29 DL Document 01/15/24 09:06 RB [id number] 01/15/24 09:17 RB 12/25/23 01/08/24 01/15/24 09:02 09:20 09:06 Wound Center Nurse 1 #4- LLE ANTERIOR CLUSTER -Combined with other wound No -Current Size (cm) - Length 1.8 2 2 -Current Size (cm) - Width 10.3 11 9.5 -Current Size (cm) - Depth 0.2 0.2 0.2 -Total Square Cm 18.54 22 19.0 -Photo Taken No -Tunneling No -Undermining/Tunneling No -Circular Undermining No -Exudate Amt Medium Medium Large -Exudate Type Serosanguineous Serosanguineous Serosanguineous -Wound Margin Distinct, Distinct, Thickened & Outline Outline Rolled Under Attached Attached -Granulation Amt Large (67-100%) Large (67-100%) Medium (34-66%) -Granulation Quality Pale,Bourg Pale,Bourg Bourg -Slough/Fibrin Yes -Necrosis Amt Small (1-33%) Small (1-33%) Medium (34-66%) -Necrotic Tissue Type Adherent Slough Adherent Slough Adherent Slough -Structure Exposed N/A N/A N/A -Texture (Lety-wound Skin Appearance) Scarring Localized Edema Assessed, ,Scarring Friable -Moisture (Lety-wound Skin Appearance) Dry/Scaly No Abnormality, Assessed Dry/Scaly -Color (Lety-wound Skin Appearance) Hemosiderin Hemosiderin Assessed Staining Staining -Temperature (Lety-wound Skin No Abnormality No Abnormality No Abnormality Appearance) (Pt Warm) (Pt Warm) (Pt Warm) -Tenderness on Palpation (Lety-wound No No No Skin Appearance) -Ulcer Cleansing Soap and Water Soap and Water Wound Cleanser -Foul Odor after Cleansing No No No -Anesthetic Used 5% Lidocaine 5% Lidocaine 5% Lidocaine Gel Gel Gel 3. LLE lat cluster -Combined with other wound No -Current Size (cm) - Length 1.8 5.6 6 -Current Size (cm) - Width 2.7 2.2 2.4 -Current Size (cm) - Depth 0.2 0.2 0.2 -Total Square Cm 4.86 12.32 14.4 -Tunneling No -Undermining/Tunneling No -Circular Undermining No -Exudate Amt Medium Medium Large -Exudate Type Serosanguineous Serosanguineous Serosanguineous -Wound Margin Distinct, Distinct, Thickened & Outline Outline Rolled Under Attached Attached -Granulation Amt Large (67-100%) Large (67-100%) Large (67-100%) -Granulation Quality Pale,Bourg Pale,Bourg Bourg -Slough/Fibrin Yes -Necrosis Amt Small (1-33%) Small (1-33%) Medium (34-66%) -Necrotic Tissue Type Adherent Slough Adherent Slough Adherent Slough -Structure Exposed N/A N/A N/A -Texture (Lety-wound Skin Appearance) Scarring Localized Edema Assessed, ,Scarring Friable -Moisture (Lety-wound Skin Appearance) Dry/Scaly Dry/Scaly Assessed -Color (Lety-wound Skin Appearance) Hemosiderin Hemosiderin Assessed Staining Staining -Temperature (Lety-wound Skin No Abnormality No Abnormality No Abnormality Appearance) (Pt Warm) (Pt Warm) (Pt Warm) -Tenderness on Palpation (Lety-wound No Skin Appearance) -Ulcer Cleansing Soap and Water Soap and Water Wound Cleanser -Foul Odor after Cleansing No No No -Anesthetic Used 5% Lidocaine 5% Lidocaine 5% Lidocaine Gel Gel Gel Lower Limb Edema Present Yes Left Calf (cm) 40.5 40.8 41.5 Left Ankle (cm) 26.5 26.4 26 WC - Nurse 2 - General Ulcer CM Notes Start: 12/25/23 09:02 Freq: Status: Active Protocol: Activity Type Activity Date Activity User E-sign Co-sign Detail Recorded Client Recorded Date Recorded By Document 12/25/23 09:27 [facility] [id number] 12/25/23 09:34 Tictail Document 01/08/24 09:33 Tictail [id number] 01/08/24 09:50 Tictail Document 01/15/24 09:31 [facility] [id number] 01/15/24 09:39 BM 12/25/23 01/08/24 01/15/24 09:27 09:33 09:31 Wound Center Nurse 2 #4- LLE ANTERIOR CLUSTER -Time : 09:34 09:33 -Correct Patient Yes Yes Yes -Correct Side, Site, Position Yes Yes Yes -Correct Procedure Yes Yes Yes -Procedure Performed Yes Yes Yes -Type of Procedure Debridement Debridement Debridement -Clinical Debridement Subcutaneous Subcutaneous Subcutaneous -Tissue Removed Subcutaneous Subcutaneous Subcutaneous -Post Debridement (cm) - Length 1.9 2.1 2.3 -Post Debridement (cm) - Width 10.9 9.5 9.5 -Post Debridement (cm) - Depth 0.1 0.1 0.1 -Total Square (Post) (cm) 20.71 19.95 21.85 -Area of Debridement (cm) - Length 1.9 2.1 2.3 -Area of Debridement (cm) - Width 10.9 9.5 9.5 -Total Square (Area) (cm) 20.71 19.95 21.85 -Tunneling No No No -Undermining/Tunneling No No No -Circular Undermining No No No -Wound/Ulcer Outcome Not Healed Not Healed Not Healed -Ulcer Cleansing Rinsed/ Rinsed/ Rinsed/ Irrigated with Irrigated with Irrigated with Saline Saline Saline -Foul Odor after Cleansing No No No -Bioengineered Tissue No No No -Bleeding Controlled with Pressure Pressure Pressure -Treatment Response Procedure Procedure Procedure Tolerated Well Tolerated Well Tolerated Well -Debridement - Subq, 1st 20sq cm No Yes Yes 3. LLE lat cluster -Time 09:29 09:38 09:33 -Correct Patient Yes Yes Yes -Correct Side, Site, Position Yes Yes Yes -Correct Procedure Yes Yes Yes -Procedure Performed Yes Yes Yes -Type of Procedure Debridement Debridement Debridement -Clinical Debridement Subcutaneous Subcutaneous Subcutaneous -Tissue Removed Subcutaneous Subcutaneous Subcutaneous -Post Debridement (cm) - Length 2 1.9 1.9 -Post Debridement (cm) - Width 2.7 2.5 2.3 -Post Debridement (cm) - Depth 0.1 0.1 0.1 -Total Square (Post) (cm) 5.4 4.75 4.37 -Area of Debridement (cm) - Length 2 1.9 1.9 -Area of Debridement (cm) - Width 2.7 2.5 2.3 -Total Square (Area) (cm) 5.4 4.75 4.37 -Tunneling No No No -Undermining/Tunneling No No No -Circular Undermining No No No -Wound/Ulcer Outcome Not Healed Not Healed Not Healed -Ulcer Cleansing Rinsed/ Rinsed/ Irrigated with Irrigated with Saline Saline -Foul Odor after Cleansing No No -Bioengineered Tissue No No -Bleeding Controlled with Pressure Pressure Pressure -Treatment Response Procedure Procedure Procedure Tolerated Well Tolerated Well Tolerated Well -Debridement - Subq, 1st 20sq cm Yes No No -Debridement, SubQ, ea addt'l 20sq cm 1 or part thereof Pain Scale: 0-10 Numeric Is Patient Pain Free? Yes Yes Yes WC - Nurse 3 - General Ulcer D/C NN Start: 12/25/23 09:02 Freq: Status: Active Protocol: Activity Type Activity Date Activity User E-sign Co-sign Detail Recorded Client Recorded Date Recorded By Document 12/25/23 09:51 DL [id number] 12/25/23 09:53 DL Document 01/08/24 09:50 [facility] [id number] 01/08/24 09:51 [facility] 12/25/23 01/08/24 09:51 09:50 Wound Care Center Nurse 3 #4- LLE ANTERIOR CLUSTER -Ulcer Cleansing Rinsed/ Rinsed/ Irrigated with Irrigated with Saline Saline -Foul Odor after Cleansing No No -Primary Dressing Applied Aquacel AG 4x4, Aquacel AG 4x4, C Hydrogel ($), C Hydrogel ($), NonAdherent NonAdherent Contact Layer Contact Layer -Other Dressing abd -Primary Dressing Covered/Secured with Dry Gauze & Dry Gauze & Roll Gauze, Roll Gauze, Secured with Secured with Tape Tape -Aquacel AG 4x4 1 1 3. LLE lat cluster -Ulcer Cleansing Rinsed/ Rinsed/ Irrigated with Irrigated with Saline Saline -Foul Odor after Cleansing No No -Primary Dressing Applied NonAdherent Aquacel AG 4x4, Contact Layer NonAdherent Contact Layer -Other Dressing hydrogel/ hydrogel aquacel ag -Primary Dressing Covered/Secured with Dry Gauze & Dry Gauze & Roll Gauze, Roll Gauze, Secured with Secured with Tape Tape -Other Covering abd -Aquacel AG 4x4 1 johny -Tubular Bandage Single Layer Single Layer -Size of Tubigrip Used Size E Size E -Size E ($) 1 2 Treatment Response Procedure Procedure Tolerated Well Tolerated Well Pain Scale: 0-10 Numeric Is Patient Pain Free? Yes Yes WC - Visit Discharge Discharge Condition Stable Stable Ambulatory Status Ambulatory Ambulatory Transportation Private Auto Private Auto Accompanied by grand daughter Assessment/Plan Assessment/Plan (1) Non-pressure chronic ulcer of left calf with fat layer exposed: CODE(S): L97.222 - Non-pressure chronic ulcer of left calf with fat layer exposed (2) Venous stasis dermatitis of left lower extremity: CODE(S): I87.2 - Venous insufficiency (chronic) (peripheral) (3) Leg swelling: CODE(S): M79.89 - Other specified soft tissue disorders PLAN: Plan Patient seen and evaluated Pre-debridement: Lateral LLE cluster: 1.8 cm x 2.2 cm x 0.1 cm; Anterior LLE cluster: 2.2 cm x 9.4 cm x 0.1 cm Ulceration was debrided as noted in the clinical panel above. Postdebridement measurement was Lateral LLE cluster: 1.9 cm x 2.3 cm x 0.1 cm; Anterior LLE cluster: 2.3 cm x 9.5 cm x 0.1 cm. No signs of infection. Ulceration dressed with hydrogel, Adaptic, Aquacel Ag and dry sterile dressing. Tubigrip compression applied to left lower extremity. She does continue to wear compression stocking to the right lower extremity. There is a some decrease in the ulceration size versus previous visit. Continues healing well. Edema is improving. Will apply for EpiFix for application at next visit. She is to continue to elevate lower extremities at all times of rest to aid in edema control Recommend continued use of compression stockings once ulcerations have healed. Compression recommended 20 to 30 mmHg. Recommended updating compression stockings to proper sizing as her previous stockings have rolled down her leg causing the ulceration. Discussed signs and symptoms of infection. Discussed if she notices increasing redness about the ulcer sites that moves up the leg or if red streaking is noted up the leg, purulent drainage from the wound sites, increasing foul odor from the wound, or if she experiences fever greater than 101 degree accompanied by nausea, vomiting, chills of these are signs of a progressing infection and she should report to the ED to receive IV antibiotics and further evaluation. She is understanding of this today. The following work up and care recommendations were made: Dressing: Hydrogel, Adaptic, Aquacel Ag and dry sterile dressing. Compression stocking 20 to 30 mmHg to knee-high. Wash: Soap and water Tissue growth optimization: Hydrogel Offload: Compression stockings and elevation of the lower extremities. Vascular: Venous Doppler performed 12/09/2023 notes acute DVT left gastroc vein with chronic changes in the left popliteal vein. Edema: Continue elevation of lower extremities at all times of rest and continue compression stocking 20 to 30 mmHg. Infection: No signs of infection Imaging: Radiographs 12/09/2023 of the right foot demonstrates diffuse arthritis. No signs of infection. Pain: May take extra strength Tylenol for discomfort Host factors: Chronic venous stasis and lower extremity edema. I answered all the patient's questions. To return to the wound healing center in 1 week or call sooner if the patient has any questions or concerns.
== END 2024-01-19 23:59 | disposition home or self-care (01) ==
LOC: WC 09:00
PROVIDERS: PCP Internal Medicine; Referring Provider Student in an Organized Health Care Education/Training Program; Visit Provider Student in an Organized Health Care Education/Training Program
DX: I83.222 Varicose veins of left lower extremity with both ulcer of calf and inflammation (principal); L97.222 Non-pressure chronic ulcer of left calf with fat layer exposed; M79.89 Other specified soft tissue disorders; I83.92 Asymptomatic varicose veins of left lower extremity; I83.12 Varicose veins of left lower extremity with inflammation; Z86.16 Personal history of COVID-19
CPT/HCPCS: 11042; 11045

== ENCOUNTER 2024-02-19 09:00 | Outpatient (RCR) | payer MEDICARE, SELFPAY ==
[2024-01-20 00:45] VITALS: BP 134/63; PULSE 88; RESP 18; TEMP 36.6
[2024-01-22 09:06] VITALS: BP 115/66; PULSE 129; RESP 18; TEMP 36.2
--- NOTE | 2024-01-22 12:36 | PCM.WC.PN ---
History of Present Illness Date of Service: 01/22/24 Chief Complaint: Venous stasis ulceration, chronic venous insufficiency, varicose veins with inflammation and ulceration, venous hypertension with inflammation and ulceration, venous stasis dermatitis - Left lower extremity History of Wound: DAVID PATTON, is a 73 F who presents to [facility] on 12/09/2023 with complaint of generalized weakness and fatigue for at least 4 weeks duration. She was previously diagnosed with hemolytic anemia by Dr. Tay 10 years ago and her weakness feels the same. Examination in the ER demonstrates an anterior left lower extremity ulceration. Patient reports that she does wear compression stockings and unfortunately the left stocking did roll down her leg became stuck causing circumferential ulcerations. She denies going to the wound care center for treatment of the ulcerations, but has been seen there in the past for venous ulcerations by Dr. Burrows. She denied F/C/chills/SOB/fever. Also denies dysuria and hematuria and chest pain. Workup in the ED did demonstrate neutropenia 3.3, thrombocytopenia, and acute kidney injury BUN of 66. Following admission overnight hemoglobin did decrease from 13.3 down to 4.8 and she was transferred to the ICU with hematology follow up and did receive transfusion which did help. Podiatry was following during admission for left lower extremity ulceration and she did undergo selective debridement at that time. Following discharge she was referred to the wound care center for continued follow of her lower extremity ulcerations. Patient states that she is feeling better since leaving the hospital. She currently denies N/V/F/chills. Denies further complaints. Subjective Subjective This is a 73-year-old female who presents to the wound care center today for continued follow-up of a left lower extremity circumferential ulceration secondary to a compression stocking that had rolled down and got stuck. She continues daily dressing changes with the assistance of her sister and son. States she is doing well and wound are improving. Patient denies constitutional symptoms. Denies further complaints. Objective Data Objective Data Vital Signs: Vital Signs Temp Pulse Resp BP O2 Del Method 97.1 F L 129 H 18 115/66 Room Air 01/22/24 09:06 01/22/24 09:06 01/22/24 09:06 01/22/24 09:06 01/22/24 09:06 Oxygen Delivery Method Room Air Physical Exam Const alert, oriented x3 and no apparent distress General Appearance: cooperative HEENT normocephalic Eyes General Eye: normal appearance of both eyes Neck General: normal visual inspection Lymph Lymphatic: no lymphadenopathy noted and no lymphedema noted Resp normal respiratory effort Cardio regular rate and regular rhythm Extremity normal capillary refill and no calf tenderness Extremity Narrative: Vascular: DP and PT pulses palpable right lower extremity, DP weakly palpable left lower extremity, PT palpable left lower extremity. CFT less than 4 seconds to the digits. Normal temperature gradient. Hair growth is absent to digits bilateral. Neurologic: Epicritic sensation intact. No focal deficits noted. Musculoskeletal: Right lower extremity weakness secondary to polio. Left lower extremity muscle strength 5 of 5 age-appropriate. Dermatologic: Left lower extremity demonstrates chronic venous stasis with hemosiderin deposition rubor at the anterior aspect of the lower extremity. There are small circumferential pressure ulceration secondary to compression stocking that had rolled down and got stuck. Ulceration demonstrates superficial layers that are granular in nature with some areas with scant yellow fibrotic tissue at the border. No signs of infection. Right lower extremity grossly normal. Skin no rashes or lesions noted, skin turgor normal and no jaundice General Skin Exam: venous stasis and dermatitis Neuro moves all extremities Debridement Note Debridement Note Wound debrided: Left lower extremity x 2 Laterality: Left Wound Grade/Stage: [place] stage I Type of Debridement: Excisional debridement Anesthesia Used: 5% Lidocaine Gel Depth: Down to and including healthy tissue and in the subcutaneous layer Percentage of wound debrided: 100 Instrument Used: 5mm curette Tissue Removed: Fibrous, devitalized subcutaneous, biofilm, slough Severity: Fat Layer Exposed Amount of bleeding with debridement: Mild Bleeding Controlled with: Compression and gauze Patient tolerated procedure: Patient tolerated procedure well Post-Debridement Measurements and Additional Note: Post-Debridement Measurements/Treatment - Nurse 1 - General Ulcer Assessment Start: 01/22/24 09:06 Freq: Status: Active Protocol: LOCO Activity Type Activity Date Activity User E-sign Co-sign Detail Recorded Client Recorded Date Recorded By Document 01/22/24 09:06 RAGINI [id number] 01/22/24 09:19 RAGINI 01/22/24 09:06 - Today's Visit Information Type of service Follow-up Visit (Physician/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 Any new allergies or adverse reactions No Had a fall/change in ADL's that may No increase risk of falls Signs or symptoms of abuse and/or No neglect since last visit Have you been in the hospital since your No last visit? Has dressing in place as prescribed Yes Has compression in place as prescribed Yes Has offloadiing in place as prescribed N/A Experienced any changes in pain level or No management Left Footwear Regular Shoe Right Footwear Regular Shoe Pain Scale: 0-10 Numeric Is Patient Pain Free? Yes WC - Nurse 1 - General Ulcer Measurement Start: 01/22/24 09:06 Freq: Status: Active Protocol: Activity Type Activity Date Activity User E-sign Co-sign Detail Recorded Client Recorded Date Recorded By Document 01/22/24 09:06 KW [id number] 01/22/24 09:19 KW 01/22/24 09:06 Wound Center Nurse 1 #4- LLE ANTERIOR CLUSTER -Current Size (cm) - Length 2.3 -Current Size (cm) - Width 9.5 -Current Size (cm) - Depth 0.2 -Total Square Cm 21.85 -Exudate Amt Small -Exudate Type Serosanguineous -Wound Margin Thickened -Granulation Amt Medium (34-66%) -Granulation Quality [place],Red -Necrosis Amt Medium (34-66%) -Necrotic Tissue Type Adherent Slough -Texture (Lety-wound Skin Appearance) Assessed -Moisture (Lety-wound Skin Appearance) Assessed -Color (Lety-wound Skin Appearance) Assessed -Temperature (Lety-wound Skin No Abnormality Appearance) (Pt Warm) -Tenderness on Palpation (Lety-wound No Skin Appearance) -Ulcer Cleansing Rinsed/ Irrigated with Saline -Foul Odor after Cleansing No -Anesthetic Used 5% Lidocaine Gel 3. LLE lat cluster -Current Size (cm) - Length 1.6 -Current Size (cm) - Width 2 -Current Size (cm) - Depth 0.2 -Total Square Cm 3.2 -Exudate Amt Small -Exudate Type Serosanguineous -Wound Margin Thickened -Granulation Amt Medium (34-66%) -Granulation Quality [place],Red -Necrosis Amt Medium (34-66%) -Necrotic Tissue Type Adherent Slough -Texture (Lety-wound Skin Appearance) Assessed -Moisture (Lety-wound Skin Appearance) Assessed -Color (Lety-wound Skin Appearance) Assessed -Temperature (Lety-wound Skin No Abnormality Appearance) (Pt Warm) -Tenderness on Palpation (Lety-wound No Skin Appearance) -Ulcer Cleansing Rinsed/ Irrigated with Saline -Foul Odor after Cleansing No -Anesthetic Used 5% Lidocaine Gel Left Calf (cm) 37.5 Left Ankle (cm) 26.4 WC - Nurse 2 - General Ulcer CM Notes Start: 01/22/24 09:06 Freq: Status: Active Protocol: Activity Type Activity Date Activity User E-sign Co-sign Detail Recorded Client Recorded Date Recorded By Document 01/22/24 09:54 [facility] [id number] 01/22/24 10:04 [facility] 01/22/24 09:54 Wound Center Nurse 2 #4- LLE ANTERIOR CLUSTER -Time 09:54 -Correct Patient Yes -Correct Side, Site, Position Yes -Correct Procedure Yes -Procedure Performed Yes -Type of Procedure Debridement -Clinical Debridement Subcutaneous -Tissue Removed Subcutaneous -Post Debridement (cm) - Length 2.4 -Post Debridement (cm) - Width 9.5 -Post Debridement (cm) - Depth 0.1 -Total Square (Post) (cm) 22.80 -Area of Debridement (cm) - Length 2.4 -Area of Debridement (cm) - Width 9.5 -Total Square (Area) (cm) 22.80 -Tunneling No -Undermining/Tunneling No -Circular Undermining No -Wound/Ulcer Outcome Not Healed -Ulcer Cleansing Rinsed/ Irrigated with Saline -Foul Odor after Cleansing No -Bioengineered Tissue Yes -Type of Bioengineered Tissue Epifix Mesh -Expiration Date 07/20/28 -Product Lot Number [id number] -Percent Used 100 -Lot number of Saline Used [id number] -Bleeding Controlled with Pressure -Treatment Response Procedure Tolerated Well -Debridement - Subq, 1st 20sq cm No -Apply Skin Sub - 1st 25 sq cm - Legs 1 -Epifix Mesh (per sq cm) 11 3. LLE lat cluster -Time 09:56 -Correct Patient Yes -Correct Side, Site, Position Yes -Correct Procedure Yes -Procedure Performed Yes -Type of Procedure Debridement -Clinical Debridement Subcutaneous -Tissue Removed Subcutaneous -Post Debridement (cm) - Length 1.7 -Post Debridement (cm) - Width 2.4 -Post Debridement (cm) - Depth 0.1 -Total Square (Post) (cm) 4.08 -Area of Debridement (cm) - Length 1.7 -Area of Debridement (cm) - Width 2.4 -Total Square (Area) (cm) 4.08 -Tunneling No -Undermining/Tunneling No -Circular Undermining No -Wound/Ulcer Outcome Not Healed -Ulcer Cleansing Rinsed/ Irrigated with Saline -Foul Odor after Cleansing No -Bioengineered Tissue No -Bleeding Controlled with Pressure -Treatment Response Procedure Tolerated Well -Debridement - Subq, 1st 20sq cm Yes Pain Scale: 0-10 Numeric Is Patient Pain Free? Yes - Nurse 3 - General Ulcer D/C NN Start: 01/22/24 09:06 Freq: Status: Active Protocol: Activity Type Activity Date Activity User E-sign Co-sign Detail Recorded Client Recorded Date Recorded By Document 01/22/24 10:19 DL [id number] 01/22/24 10:20 DL 01/22/24 10:19 Wound Care Center Nurse 3 #4- LLE ANTERIOR CLUSTER -Foul Odor after Cleansing No -Primary Dressing Applied Aquacel Extra -Other Dressing Epimesh -Primary Dressing Covered/Secured with Dry Gauze & Roll Gauze, Secured with Tape -Aquacel Extra 1 3. LLE lat cluster -Foul Odor after Cleansing No -Primary Dressing Applied Aquacel Extra -Other Dressing epimesh -Primary Dressing Covered/Secured with Dry Gauze & Roll Gauze -Aquacel Extra 1 johny -Tubular Bandage Single Layer -Size of Tubigrip Used Size E -Size E ($) 1 Treatment Response Procedure Tolerated Well Pain Scale: 0-10 Numeric Is Patient Pain Free? Yes WC - Visit Discharge Discharge Condition Stable Ambulatory Status Ambulatory Transportation Private [facility] Facility Type Home Health Orders Sent Yes Assessment/Plan Assessment/Plan (1) Non-pressure chronic ulcer of left calf with fat layer exposed: CODE(S): L97.222 - Non-pressure chronic ulcer of left calf with fat layer exposed (2) Venous stasis dermatitis of left lower extremity: CODE(S): I87.2 - Venous insufficiency (chronic) (peripheral) (3) Leg edema: CODE(S): R60.0 - Localized edema PLAN: Plan Patient seen and evaluated Pre-debridement: Lateral LLE cluster: 1.6 cm x 2.3 cm x 0.1 cm; Anterior LLE cluster: 2.3 cm x 9.4 cm x 0.1 cm Ulceration was debrided as noted in the clinical panel above. Postdebridement measurement was Lateral LLE cluster: 1.7 cm x 2.4 cm x 0.1 cm; Anterior LLE cluster: 2.4 cm x 9.5 cm x 0.1 cm. No signs of infection. EpiFix #1 applied to anterior ulceration site and dressed with Adaptic touch, and Steri-Strips, Aquacel Ag and dry sterile dressing. Tubigrip compression applied to left lower extremity. She does continue to wear compression stocking to the right lower extremity. Lateral site underwent debridement and dressed with hydrogel and DSD. There is a some decrease in the ulceration size versus previous visit. Continues healing well. Edema is improving. She has been approved for EpiFix application, will continue applying. She is to continue to elevate lower extremities at all times of rest to aid in edema control Recommend continued use of compression stockings once ulcerations have healed. Compression recommended 20 to 30 mmHg. Recommended updating compression stockings to proper sizing as her previous stockings have rolled down her leg causing the ulceration. Discussed signs and symptoms of infection. Discussed if she notices increasing redness about the ulcer sites that moves up the leg or if red streaking is noted up the leg, purulent drainage from the wound sites, increasing foul odor from the wound, or if she experiences fever greater than 101 degree accompanied by nausea, vomiting, chills of these are signs of a progressing infection and she should report to the ED to receive IV antibiotics and further evaluation. She is understanding of this today. The following work up and care recommendations were made: Dressing: Epifix, Adaptic touch and steri-strips, Aquacel Ag and dry sterile dressing. Compression stocking 20 to 30 mmHg to knee-high. Wash: Do not get wet Tissue growth optimization: EpiFix Offload: Compression stockings and elevation of the lower extremities. Vascular: Venous Doppler performed 12/09/2023 notes acute DVT left gastroc vein with chronic changes in the left popliteal vein. Edema: Continue elevation of lower extremities at all times of rest and continue compression stocking 20 to 30 mmHg. Infection: No signs of infection Imaging: Radiographs 12/09/2023 of the right foot demonstrates diffuse arthritis. No signs of infection. Pain: May take extra strength Tylenol for discomfort Host factors: Chronic venous stasis and lower extremity edema. I answered all the patient's questions. To return to the wound healing center in 2 weeks or call sooner if the patient has any questions or concerns.
--- NOTE | 2024-02-05 09:06 | PN.PCM_ITS ---
History of Present Illness Date of Service: 02/05/24 Chief Complaint: Venous stasis ulceration, chronic venous insufficiency, v aricose veins with inflammation and ulceration, venous hypertension with inflammation and ulceration, venous stasis dermatitis - Left lower extremity History of Wound: DAVID PATTON, is a 73 F who presents to [facility] on 12/09/2023 with complaint of generalized weakness and fatigue for at least 4 weeks duration. She was previously diagnosed with hemolytic anemia by Dr. Tay 10 years ago and her weakness feels the same. Examination in the ER demonstrates an anterior left lower extremity ulceration. Patient reports that she does wear compression stockings and unfortunately the left stocking did roll down her leg became stuck causing circumferential ulcerations. She denies going to the wound care center for treatment of the ulcerations, but has been seen there in the past for venous ulcerations by Dr. Burrows. She denied F/C/chills/SOB/fever. Also denies dysuria and hematuria and chest pain. Workup in the ED did demonstrate neutropenia 3.3, thrombocytopenia, and acute kidney injury BUN of 66. Following admission overnight hemoglobin did decrease from 13.3 down to 4.8 and she was transferred to the ICU with hematology follow up and did receive transfusion which did help. Podiatry was following during admission for left lower extremity ulceration and she did undergo selective debridement at that time. Following discharge she was referred to the wound care center for continued follow of her lower extremity ulcerations. Patient states that she is feeling better since leaving the hospital. She currently denies N/V/F/chills. Denies further complaints. Subjective Subjective This is a 73-year-old female who presents to the wound care center today for continued follow-up of a left lower extremity circumferential ulceration secondary to a compression stocking that had rolled down and got stuck. She is left grafting product in place to the anterior lower extremity. Continues changing dressings overlying the lateral portion of the lower extremity daily. Patient denies constitutional symptoms. Denies further complaints. Objective Data Objective Data Vital Signs: Vital Signs Temp Pulse Resp BP O2 Del Method 97.1 F L 129 H 18 115/66 Room Air 01/22/24 09:06 01/22/24 09:06 01/22/24 09:06 01/22/24 09:06 01/22/24 09:06 Oxygen Delivery Method Room Air Physical Exam Const alert, oriented x3 and no apparent distress General Appearance: cooperative HEENT normocephalic Eyes General Eye: normal appearance of both eyes Neck General: normal visual inspection Lymph Lymphatic: no lymphadenopathy noted and no lymphedema noted Resp normal respiratory effort Cardio regular rate and regular rhythm Extremity normal capillary refill and no calf tenderness Extremity Narrative: Vascular: DP and PT pulses palpable right lower extremity, DP weakly palpable left lower extremity, PT palpable left lower extremity. CFT less than 4 seconds to the digits. Normal temperature gradient. Hair growth is absent to digits bilateral. Neurologic: Epicritic sensation intact. No focal deficits noted. Musculoskeletal: Right lower extremity weakness secondary to polio. Left lower extremity muscle strength 5 of 5 age-appropriate. Dermatologic: Left lower extremity demonstrates chronic venous stasis with hemosiderin deposition rubor at the anterior aspect of the lower extremity. There are small circumferential pressure ulceration secondary to compression stocking that had rolled down and got stuck. Ulceration demonstrates s uperficial layers that are granular in nature with some areas with scant yellow fibrotic tissue at the border. No signs of infection. Right lower extremity grossly normal. Skin no rashes or lesions noted, skin turgor normal and no jaundice General Skin Exam: venous stasis and dermatitis Neuro moves all extremities Debridement Note Debridement Note Wound debrided: Left lower extremity anterior cluster Laterality: Left Wound Grade/Stage: Aguila stage I Type of Debridement: Excisional debridement Anesthesia Used: 5% Lidocaine Gel Depth: Down to and including healthy tissue and in the subcutaneous layer Percentage of wound debrided: 100 Instrument Used: 5mm curette Tissue Removed: Fibrous, devitalized subcutaneous, biofilm, slough Severity: Fat Layer Exposed Amount of bleeding with debridement: Mild Bleeding Controlled with: Compression and gauze Patient tolerated procedure: Patient tolerated procedure well Post-Debridement Measurements and Additional Note: Post-Debridement Measurements/Treatment - Nurse 1 - General Ulcer Assessment Start: 01/22/24 09:06 Freq: Status: Active Protocol: LOCO Activity Type Activity Date Activity User E-sign Co-sign Detail Recorded Client Recorded Date Recorded By Document 01/22/24 09:06 KW [id number] 01/22/24 09:19 KW 01/22/24 09:06 CRYSTAL - Today's Visit Information Type of service Follow-up Visit (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 Any new allergies or adverse reactions No Had a fall/change in ADL's that may No increase risk of falls Signs or symptoms of abuse and/or No neglect since last visit Have you been in the hospital since your No last visit? Has dressing in place as prescribed Yes Has compression in place as prescribed Yes Has offloadiing in place as prescribed N/A Experienced any changes in pain level or No management Left Footwear Regular Shoe Right Footwear Regular Shoe Pain Scale: 0-10 Numeric Is Patient Pain Free? Yes WC - Nurse 1 - General Ulcer Measurement Start: 01/22/24 09:06 Freq: Status: Active Protocol: Activity Type Activity Date Activity User E-sign Co-sign Detail Recorded Client Recorded Date Recorded By Document 01/22/24 09:06 KW [id number] 01/22/24 09:19 KW 01/22/24 09:06 Wound Center Nurse 1 #4- LLE ANTERIOR CLUSTER -Current Size (cm) - Length 2.3 -Current Size (cm) - Width 9.5 -Current Size (cm) - Depth 0.2 -Total Square Cm 21.85 -Exudate Amt Small -Exudate Type Serosanguineous -Wound Margin Thickened -Granulation Amt Medium (34-66%) -Granulation Quality Arthur,Red -Necrosis Amt Medium (34-66%) -Necrotic Tissue Type Adherent Slough -Texture (Lety-wound Skin Appearance) Assessed -Moisture (Lety-wound Skin Appearance) Assessed -Color (Lety-wound Skin Appearance) Assessed -Temperature (Lety-wound Skin No Abnormality Appearance) (Pt Warm) -Tenderness on Palpation (Lety-wound No Skin Appearance) -Ulcer Cleansing Rinsed/ Irrigated with Saline -Foul Odor after Cleansing No -Anesthetic Used 5% Lidocaine Gel 3. LLE lat cluster -Current Size (cm) - Length 1.6 -Current Size (cm) - Width 2 -Current Size (cm) - Depth 0.2 -Total Square Cm 3.2 -Exudate Amt Small -Exudate Type Serosanguineous -Wound Margin Thickened -Granulation Amt Medium (34-66%) -Granulation Quality Arthur,Red -Necrosis Amt Medium (34-66%) -Necrotic Tissue Type Adherent Slough -Texture (Lety-wound Skin Appearance) Assessed -Moisture (Lety-wound Skin Appearance) Assessed -Color (Lety-wound Skin Appearance) Assessed -Temperature (Lety-wound Skin No Abnormality Appearance) (Pt Warm) -Tenderness on Palpation (Lety-wound No Skin Appearance) -Ulcer Cleansing Rinsed/ Irrigated with Saline -Foul Odor after Cleansing No -Anesthetic Used 5% Lidocaine Gel Left Calf (cm) 37.5 Left Ankle (cm) 26.4 WC - Nurse 2 - General Ulcer CM Notes Start: 01/22/24 09:06 Freq: Status: Active Protocol: Activity Type Activity Date Activity User E-sign Co-sign Detail Recorded Client Recorded Date Recorded By Document 01/22/24 09:54 [facility] [id number] 01/22/24 10:04 [facility] 01/22/24 09:54 Wound Center Nurse 2 #4- LLE ANTERIOR CLUSTER -Time 09:54 -Correct Patient Yes -Correct Side, Site, Position Yes -Correct Procedure Yes -Procedure Performed Yes -Type of Procedure Debridement -Clinical Debridement Subcutaneous -Tissue Removed Subcutaneous -Post Debridement (cm) - Length 2.4 -Post Debridement (cm) - Width 9.5 -Post Debridement (cm) - Depth 0.1 -Total Square (Post) (cm) 22.80 -Area of Debridement (cm) - Length 2.4 -Area of Debridement (cm) - Width 9.5 -Total Square (Area) (cm) 22.80 -Tunneling No -Undermining/Tunneling No -Circular Undermining No -Wound/Ulcer Outcome Not Healed -Ulcer Cleansing Rinsed/ Irrigated with Saline -Foul Odor after Cleansing No -Bioengineered Tissue Yes -Type of Bioengineered Tissue Epifix Mesh -Expiration Date 07/20/28 -Product Lot Number [id number] -Percent Used 100 -Lot number of Saline Used [id number] -Bleeding Controlled with Pressure -Treatment Response Procedure Tolerated Well -Debridement - Subq, 1st 20sq cm No -Apply Skin Sub - 1st 25 sq cm - Legs 1 -Epifix Mesh (per sq cm) 11 3. LLE lat cluster -Time 09:56 -Correct Patient Yes -Correct Side, Site, Position Yes -Correct Procedure Yes -Procedure Performed Yes -Type of Procedure Debridement -Clinical Debridement Subcutaneous -Tissue Removed Subcutaneous -Post Debridement (cm) - Length 1.7 -Post Debridement (cm) - Width 2.4 -Post Debridement (cm) - Depth 0.1 -Total Square (Post) (cm) 4.08 -Area of Debridement (cm) - Length 1.7 -Area of Debridement (cm) - Width 2.4 -Total Square (Area) (cm) 4.08 -Tunneling No -Undermining/Tunneling No -Circular Undermining No -Wound/Ulcer Outcome Not Healed -Ulcer Cleansing Rinsed/ Irrigated with Saline -Foul Odor after Cleansing No -Bioengineered Tissue No -Bleeding Controlled with Pressure -Treatment Response Procedure Tolerated Well -Debridement - Subq, 1st 20sq cm Yes Pain Scale: 0-10 Numeric Is Patient Pain Free? Yes - Nurse 3 - General Ulcer D/C NN Start: 01/22/24 09:06 Freq: Status: Active Protocol: Activity Type Activity Date Activity User E-sign Co-sign Detail Recorded Client Recorded Date Recorded By Document 01/22/24 10:19 DL [id number] 01/22/24 10:20 DL 01/22/24 10:19 Wound Care Center Nurse 3 #4- LLE ANTERIOR CLUSTER -Foul Odor after Cleansing No -Primary Dressing Applied Aquacel Extra -Other Dressing Epimesh -Primary Dressing Covered/Secured with Dry Gauze & Roll Gauze, Secured with Tape -Aquacel Extra 1 3. LLE lat cluster -Foul Odor after Cleansing No -Primary Dressing Applied Aquacel Extra -Other Dressing epimesh -Primary Dressing Covered/Secured with Dry Gauze & Roll Gauze -Aquacel Extra 1 johny -Tubular Bandage Single Layer -Size of Tubigrip Used Size E -Size E ($) 1 Treatment Response Procedure Tolerated Well Pain Scale: 0-10 Numeric Is Patient Pain Free? Yes WC - Visit Discharge Discharge Condition Stable Ambulatory Status Ambulatory Transportation Private [facility] Facility Type Home Health Orders Sent Yes Additional Wound Wound debrided: Left lower extremity lateral cluster Laterality: Left Wound Grade/Stage: Aguila stage I Type of Debridement: Excisional debridement Anesthesia Used: 5% Lidocaine Gel Depth: Down to and including healthy tissue and in the subcutaneous layer Percentage of wound debrided: 100 Instrument Used: 5mm curette Tissue Removed: Fibrous, devitalized subcutaneous, biofilm, slough Severity: Fat Layer Exposed Amount of bleeding with debridement: Mild Bleeding Controlled with: Compression and gauze Patient tolerated procedure: Patient tolerated procedure well Assessment/Plan Assessment/Plan (1) Non-pressure chronic ulcer of left calf with fat layer exposed: CODE(S): L97.222 - Non-pressure chronic ulcer of left calf with fat layer exposed (2) Venous stasis dermatitis of left lower extremity: CODE(S): I87.2 - Venous insufficiency (chronic) (peripheral) (3) Leg edema: CODE(S): R60.0 - Localized edema PLAN: Plan Patient seen and evaluated Pre-debridement: Lateral LLE cluster: 1.6 cm x 1.9 cm x 0.1 cm; Anterior LLE cluster: 2.3 cm x 9.2 cm x 0.1 cm Ulceration was debrided as noted in the clinical panel above. Postdebridement measurement was Lateral LLE cluster: 1.7 cm x 2.0 cm x 0.1 cm; Anterior LLE cluster: 2.4 cm x 9.3 cm x 0.1 cm. No signs of infection. EpiFix #2 applied to anterior ulceration site and dressed with Adaptic touch, and Steri-Strips, Aqu acel Ag and dry sterile dressing. Tubigrip compression applied to left lower extremity. She does continue to wear compression stocking to the right lower extremity. Lateral site underwent debridement and dressed with hydrogel and DSD. There is a decrease in the ulcerations sizes versus previous visit. Continues healing well. Edema is improving. She has been approved for EpiFix application, will continue applying. She is to continue to elevate lower extremities at all times of rest to aid in edema control Recommend continued use of compression stockings once ulcerations have healed. Compression recommended 20 to 30 mmHg. Recommended updating compression stockings to proper sizing as her previous stockings have rolled down her leg causing the ulceration. Discussed signs and symptoms of infection. Discussed if she notices increasing redness about the ulcer sites that moves up the leg or if red streaking is noted up the leg, purulent drainage from the wound sites, increasing foul odor from the wound, or if she experiences fever greater than 101 degree accompanied by nausea, vomiting, chills of these are signs of a progressing infection and she should report to the ED to receive IV antibiotics and further evaluation. She is understanding of this today. The following work up and care recommendations were made: Dressing: Epifix, Adaptic touch and steri-strips, Aquacel Ag and dry sterile dressing to anterior. Lateral leg Hydrogel and DSD/SAP dressing for mild to moderate drainage. Compression stocking 20 to 30 mmHg to knee-high. Wash: Do not get wet Tissue growth optimization: EpiFix anterior, hydrogel lateral Offload: Compression stockings and elevation of the lower extremities. Vascular: Venous Doppler performed 12/09/2023 notes acute DVT left gastroc vein with chronic changes in the left popliteal vein. Edema: Continue elevation of lower extremities at all times of rest and continue compression stocking 20 to 30 mmHg. Infection: No signs of infection Imaging: Radiographs 12/09/2023 of the right foot demonstrates diffuse arthritis. No signs of infection. Pain: May take extra strength Tylenol for discomfort Host factors: Chronic venous stasis and lower extremity edema. I answered all the patient's questions. To return to the wound healing center in 1 week or call sooner if the patient has any questions or concerns.
[2024-02-05 09:19] VITALS: BP 119/70; PULSE 102; RESP 18; TEMP 36.4
[2024-02-12 09:12] VITALS: PULSE 117; RESP 18; TEMP 36.1
--- NOTE | 2024-02-12 09:22 | PCM.WC.PN ---
History of Present Illness Date of Service: 02/12/24 Chief Complaint: Venous stasis ulceration, chronic venous insufficiency, varicose veins with inflammation and ulceration, venous hypertension with inflammation and ulceration, venous stasis dermatitis - Left lower extremity History of Wound: DAVID PATTON, is a 73 F who presents to [facility] on 12/09/2023 with complaint of generalized weakness and fatigue for at least 4 weeks duration. She was previously diagnosed with hemolytic anemia by Dr. Tay 10 years ago and her weakness feels the same. Examination in the ER demonstrates an anterior left lower extremity ulceration. Patient reports that she does wear compression stockings and unfortunately the left stocking did roll down her leg became stuck causing circumferential ulcerations. She denies going to the wound care center for treatment of the ulcerations, but has been seen there in the past for venous ulcerations by Dr. Burrows. She denied F/C/chills/SOB/fever. Also denies dysuria and hematuria and chest pain. Workup in the ED did demonstrate neutropenia 3.3, thrombocytopenia, and acute kidney injury BUN of 66. Following admission overnight hemoglobin did decrease from 13.3 down to 4.8 and she was transferred to the ICU with hematology follow up and did receive transfusion which did help. Podiatry was following during admission for left lower extremity ulceration and she did undergo selective debridement at that time. Following discharge she was referred to the wound care center for continued follow of her lower extremity ulcerations. Patient states that she is feeling better since leaving the hospital. She currently denies N/V/F/chills. Denies further complaints. Subjective Subjective This is a 73-year-old female who presents to the wound care center today for continued follow-up of a left lower extremity circumferential ulceration secondary to a compression stocking that had rolled down and got stuck. She is left grafting product intact to the anterior lower extremity. Continues changing dressings overlying the lateral portion of the lower extremity daily. Feels she is healing well. Patient denies constitutional symptoms. Denies further complaints. Objective Data Objective Data Vital Signs: Vital Signs Temp Pulse Resp BP O2 Del Method 97 F L 117 H 18 119/70 Room Air 02/12/24 09:12 02/12/24 09:12 02/12/24 09:12 02/05/24 09:19 01/22/24 09:06 Oxygen Delivery Method Room Air Physical Exam Const alert, oriented x3 and no apparent distress General Appearance: cooperative HEENT normocephalic Eyes General Eye: normal appearance of both eyes Neck General: normal visual inspection Lymph Lymphatic: no lymphadenopathy noted and no lymphedema noted Resp normal respiratory effort Cardio regular rate and regular rhythm Extremity normal capillary refill and no calf tenderness Extremity Narrative: Vascular: DP and PT pulses palpable right lower extremity, DP weakly palpable left lower extremity, PT palpable left lower extremity. CFT less than 4 seconds to the digits. Normal temperature gradient. Hair growth is absent to digits bilateral. Neurologic: Epicritic sensation intact. No focal deficits noted. Musculoskeletal: Right lower extremity weakness secondary to polio. Left lower extremity muscle strength 5 of 5 age-appropriate. Dermatologic: Left lower extremity demonstrates chronic venous stasis with hemosiderin deposition rubor at the anterior aspect of the lower extremity. There are small circumferential pressure ulceration secondary to compression stocking that had rolled down and got stuck. Ulceration demonstrates superficial layers that are granular in nature with some areas with scant yellow fibrotic tissue at the border. No signs of infection. Right lower extremity grossly normal. Skin no rashes or lesions noted, skin turgor normal and no jaundice General Skin Exam: venous stasis and dermatitis Neuro moves all extremities Debridement Note Debridement Note Wound debrided: Left lower extremity lateral Laterality: Left Wound Grade/Stage: Aguila stage I Type of Debridement: Excisional debridement Anesthesia Used: 5% Lidocaine Gel Depth: Down to and including healthy tissue and in the subcutaneous layer Percentage of wound debrided: 100 Instrument Used: 5mm curette Tissue Removed: Fibrous, devitalized subcutaneous, biofilm, slough Severity: Fat Layer Exposed Amount of bleeding with debridement: Mild Bleeding Controlled with: Compression and gauze Patient tolerated procedure: Patient tolerated procedure well Post-Debridement Measurements and Additional Note: Post-Debridement Measurements/Treatment CRYSTAL - Nurse 1 - General Ulcer Assessment Start: 01/22/24 09:06 Freq: Status: Active Protocol: LOCO Activity Type Activity Date Activity User E-sign Co-sign Detail Recorded Client Recorded Date Recorded By Document 01/22/24 09:06 KW [id number] 01/22/24 09:19 KW Document 02/05/24 09:19 RB [id number] 02/05/24 09:23 RB Document 02/12/24 09:12 RB [id number] 02/12/24 09:18 RB 01/22/24 02/05/24 02/12/24 09:06 09:19 09:12 - Today's Visit Information Type of service Follow-up Visit Follow-up Visit Follow-up Visit (Physician/FILLER SPREADER (Physician/FILLER SPREADER (Physician/FILLER SPREADER ) ) ) Arrival Mode Ambulatory Ambulatory Ambulatory Transfer Assistance None None Patient Identification Verified (Name & Yes Yes Yes ) Patient Requires Transmission-Based No No Precautions Vital Signs Temperature (97.8 F-99.1 F) 97.1 F L 97.5 F L 97 F L Temperature Source Temporal Temporal Temporal Pulse Rate (60-100) 129 H 102 H 117 H Pulse Location Monitor Monitor Monitor Respiratory Rate (12-18) 18 18 18 Respiratory rate source Observation Observation Oxygen Delivery Method Room Air Blood Pressure (90/60-120/80) 115/66 119/70 Blood Pressure Mean (mm Hg) 82 86 Source Monitor Monitor Position Sitting Semi-Fowlers Blood Pressure Location Left Arm Left Arm History Since Last Visit- (Skip if this is Patient's initial visit) Have you changed medications since your No No last visit? Any new allergies or adverse reactions No No Had a fall/change in ADL's that may No No increase risk of falls Signs or symptoms of abuse and/or No No neglect since last visit Have you been in the hospital since your No No last visit? Has dressing in place as prescribed Yes Yes Has compression in place as prescribed Yes Yes Has offloadiing in place as prescribed N/A No Experienced any changes in pain level or No No management Left Footwear Regular Shoe Right Footwear Regular Shoe Pain Scale: 0-10 Numeric Is Patient Pain Free? Yes Yes Yes - Nurse 1 - General Ulcer Measurement Start: 01/22/24 09:06 Freq: Status: Active Protocol: Activity Type Activity Date Activity User E-sign Co-sign Detail Recorded Client Recorded Date Recorded By Document 01/22/24 09:06 KW [id number] 01/22/24 09:19 KW Document 02/05/24 09:19 RB [id number] 02/05/24 09:23 RB Document 02/12/24 09:12 RB [id number] 02/12/24 09:18 RB 01/22/24 02/05/24 02/12/24 09:06 09:19 09:12 Wound Center Nurse 1 #4- LLE ANTERIOR CLUSTER -Combined with other wound No No -Current Size (cm) - Length 2.3 2.4 2.5 -Current Size (cm) - Width 9.5 9.7 9.8 -Current Size (cm) - Depth 0.2 0.1 0.2 -Total Square Cm 21.85 23.28 24.50 -Photo Taken No -Tunneling No No -Undermining/Tunneling No No -Circular Undermining No No -Exudate Amt Small Large Medium -Exudate Type Serosanguineous Serosanguineous Serosanguineous -Wound Margin Thickened Distinct, Distinct, Outline Outline Attached Attached -Granulation Amt Medium (34-66%) Medium (34-66%) Medium (34-66%) -Granulation Quality [place],Red [place] -Slough/Fibrin Yes Yes -Necrosis Amt Medium (34-66%) Medium (34-66%) Medium (34-66%) -Necrotic Tissue Type Adherent Slough Adherent Slough Adherent Slough -Structure Exposed N/A N/A -Texture (Lety-wound Skin Appearance) Assessed Localized Edema Assessed -Moisture (Lety-wound Skin Appearance) Assessed Assessed Assessed -Color (Lety-wound Skin Appearance) Assessed Assessed Assessed -Temperature (Lety-wound Skin No Abnormality No Abnormality No Abnormality Appearance) (Pt Warm) (Pt Warm) (Pt Warm) -Tenderness on Palpation (Lety-wound No No No Skin Appearance) -Ulcer Cleansing Rinsed/ Wound Cleanser Wound Cleanser Irrigated with Saline -Foul Odor after Cleansing No No No -Anesthetic Used 5% Lidocaine 5% Lidocaine 5% Lidocaine Gel Gel Gel 3. LLE lat cluster -Combined with other wound No No -Current Size (cm) - Length 1.6 1.7 1.4 -Current Size (cm) - Width 2 2.3 1.9 -Current Size (cm) - Depth 0.2 0.1 0.2 -Total Square Cm 3.2 3.91 2.66 -Photo Taken No -Tunneling No No -Undermining/Tunneling No No -Circular Undermining No No -Exudate Amt Small Medium Medium -Exudate Type Serosanguineous Serosanguineous Serosanguineous -Wound Margin Thickened Distinct, Distinct, Outline Outline Attached Attached -Granulation Amt Medium (34-66%) Medium (34-66%) Medium (34-66%) -Granulation Quality [place],Red [place] -Slough/Fibrin Yes Yes -Necrosis Amt Medium (34-66%) Medium (34-66%) Medium (34-66%) -Necrotic Tissue Type Adherent Slough Adherent Slough Adherent Slough -Structure Exposed N/A N/A -Texture (Lety-wound Skin Appearance) Assessed Assessed, Assessed Localized Edema -Moisture (Lety-wound Skin Appearance) Assessed Assessed Assessed -Color (Lety-wound Skin Appearance) Assessed Assessed Assessed -Temperature (Lety-wound Skin No Abnormality No Abnormality No Abnormality Appearance) (Pt Warm) (Pt Warm) (Pt Warm) -Tenderness on Palpation (Lety-wound No No No Skin Appearance) -Ulcer Cleansing Rinsed/ Wound Cleanser Wound Cleanser Irrigated with Saline -Foul Odor after Cleansing No No No -Anesthetic Used 5% Lidocaine 5% Lidocaine 5% Lidocaine Gel Gel Gel Lower Limb Edema Present Yes Yes Left Calf (cm) 37.5 40.5 40.2 Left Ankle (cm) 26.4 29.5 26.8 WC - Nurse 2 - General Ulcer CM Notes Start: 01/22/24 09:06 Freq: Status: Active Protocol: Activity Type Activity Date Activity User E-sign Co-sign Detail Recorded Client Recorded Date Recorded By Document 01/22/24 09:54 [facility] [id number] 01/22/24 10:04 [facility] Document 02/05/24 09:28 [facility] [id number] 02/05/24 09:38 [facility] 01/22/24 02/05/24 09:54 09:28 Wound Center Nurse 2 #4- LLE ANTERIOR CLUSTER -Time 09:54 09:29 -Correct Patient Yes Yes -Correct Side, Site, Position Yes Yes -Correct Procedure Yes Yes -Procedure Performed Yes Yes -Type of Procedure Debridement Debridement -Clinical Debridement Subcutaneous Subcutaneous -Tissue Removed Subcutaneous Subcutaneous -Post Debridement (cm) - Length 2.4 2.4 -Post Debridement (cm) - Width 9.5 9.3 -Post Debridement (cm) - Depth 0.1 0.1 -Total Square (Post) (cm) 22.80 22.32 -Area of Debridement (cm) - Length 2.4 2.4 -Area of Debridement (cm) - Width 9.5 9.3 -Total Square (Area) (cm) 22.80 22.32 -Tunneling No No -Undermining/Tunneling No No -Circular Undermining No No -Wound/Ulcer Outcome Not Healed Not Healed -Ulcer Cleansing Rinsed/ Rinsed/ Irrigated with Irrigated with Saline Saline -Foul Odor after Cleansing No No -Bioengineered Tissue Yes Yes -Type of Bioengineered Tissue Epifix Mesh Epifix Mesh -Expiration Date 07/20/28 07/20/28 -Product Lot Number [id number] -Percent Used 100 100 -Lot number of Saline Used [id number] -Bleeding Controlled with Pressure Pressure -Treatment Response Procedure Procedure Tolerated Well Tolerated Well -Debridement - Subq, 1st 20sq cm No No -Apply Skin Sub - 1st 25 sq cm - Legs 1 1 -Epifix Mesh (per sq cm) 11 11 3. LLE lat cluster -Time 09:56 09:29 -Correct Patient Yes Yes -Correct Side, Site, Position Yes Yes -Correct Procedure Yes Yes -Procedure Performed Yes Yes -Type of Procedure Debridement Debridement -Clinical Debridement Subcutaneous Subcutaneous -Tissue Removed Subcutaneous Subcutaneous -Post Debridement (cm) - Length 1.7 1.7 -Post Debridement (cm) - Width 2.4 2 -Post Debridement (cm) - Depth 0.1 0.1 -Total Square (Post) (cm) 4.08 3.4 -Area of Debridement (cm) - Length 1.7 1.7 -Area of Debridement (cm) - Width 2.4 2 -Total Square (Area) (cm) 4.08 3.4 -Tunneling No No -Undermining/Tunneling No No -Circular Undermining No No -Wound/Ulcer Outcome Not Healed Not Healed -Ulcer Cleansing Rinsed/ Rinsed/ Irrigated with Irrigated with Saline Saline -Foul Odor after Cleansing No No -Bioengineered Tissue No No -Bleeding Controlled with Pressure Pressure -Treatment Response Procedure Procedure Tolerated Well Tolerated Well -Debridement - Subq, 1st 20sq cm Yes Yes Pain Scale: 0-10 Numeric Is Patient Pain Free? Yes Yes WC - Nurse 3 - General Ulcer D/C NN Start: 01/22/24 09:06 Freq: Status: Active Protocol: Activity Type Activity Date Activity User E-sign Co-sign Detail Recorded Client Recorded Date Recorded By Document 01/22/24 10:19 DL [id number] 01/22/24 10:20 DL Document 02/05/24 09:48 [facility] [id number] 02/05/24 09:49 BM 01/22/24 02/05/24 10:19 09:48 Wound Care Center Nurse 3 #4- LLE ANTERIOR CLUSTER -Foul Odor after Cleansing No -Primary Dressing Applied Aquacel Extra Aquacel Extra -Other Dressing Epimesh epifix mesh -Primary Dressing Covered/Secured with Dry Gauze & Dry Gauze & Roll Gauze, Roll Gauze, Secured with Secured with Tape Tape -Other Covering abd -Aquacel Extra 1 2 3. LLE lat cluster -Foul Odor after Cleansing No -Primary Dressing Applied Aquacel Extra Aquacel Extra -Other Dressing epimesh -Primary Dressing Covered/Secured with Dry Gauze & Dry Gauze & Roll Gauze Roll Gauze, Secured with Tape -Other Covering abd -Aquacel Extra 1 0 johny -Tubular Bandage Single Layer Single Layer -Size of Tubigrip Used Size E Size E -Size E ($) 1 2 Treatment Response Procedure Procedure Tolerated Well Tolerated Well Pain Scale: 0-10 Numeric Is Patient Pain Free? Yes Yes WC - Visit Discharge Discharge Condition Stable Stable Ambulatory Status Ambulatory Ambulatory Transportation Private Auto Private Auto Facility Type Home Health Orders Sent Yes Additional Wound Wound debrided: Left lower extremity anterior cluster Laterality: Left Wound Grade/Stage: Aguila stage I Type of Debridement: Excisional debridement Anesthesia Used: 5% Lidocaine Gel Depth: Down to and including healthy tissue and in the subcutaneous layer Percentage of wound debrided: 100 Instrument Used: 5mm curette Tissue Removed: Fibrous, devitalized subcutaneous, biofilm, slough Severity: Fat Layer Exposed Amount of bleeding with debridement: Mild Bleeding Controlled with: Compression and gauze Patient tolerated procedure: Patient tolerated procedure well Assessment/Plan Assessment/Plan (1) Non-pressure chronic ulcer of left calf with fat layer exposed: CODE(S): L97.222 - Non-pressure chronic ulcer of left calf with fat layer exposed (2) Venous stasis dermatitis of left lower extremity: CODE(S): I87.2 - Venous insufficiency (chronic) (peripheral) (3) Leg edema: CODE(S): R60.0 - Localized edema PLAN: Plan Patient seen and evaluated Pre-debridement: Lateral LLE cluster: 1.2 cm x 2.0 cm x 0.1 cm; Anterior LLE cluster: 2.4 cm x 9.1 cm x 0.1 cm Ulceration was debrided as noted in the clinical panel above. Postdebridement measurement was Lateral LLE cluster: 1.3 cm x 2.2 cm x 0.1 cm; Anterior LLE cluster: 2.5 cm x 9.2 cm x 0.1 cm. No signs of infection. EpiFix #3 applied to anterior ulceration site and dressed with Adaptic touch, and Steri-Strips, Aquacel Ag and dry sterile dressing. Tubigrip compression applied to left lower extremity. She does continue to wear compression stocking to the right lower extremity. Lateral site underwent debridement and dressed with hydrogel and DSD. There is a decrease in the ulcerations sizes versus previous visit. Continues healing well. Edema has improved. Continues Tubigrip compression She has been approved for EpiFix application, will continue applying. She is to continue to elevate lower extremities at all times of rest to aid in edema control Recommend continued use of compression stockings once ulcerations have healed. Compression recommended 20 to 30 mmHg. Recommended updating compression stockings to proper sizing as her previous stockings have rolled down her leg causing the ulceration. Discussed signs and symptoms of infection. Discussed if she notices increasing redness about the ulcer sites that moves up the leg or if red streaking is noted up the leg, purulent drainage from the wound sites, increasing foul odor from the wound, or if she experiences fever greater than 101 degree accompanied by nausea, vomiting, chills of these are signs of a progressing infection and she should report to the ED to receive IV antibiotics and further evaluation. She is understanding of this today. The following work up and care recommendations were made: Dressing: Epifix, Adaptic touch and steri-strips, Aquacel Ag and dry sterile dressing to anterior. Lateral leg Hydrogel and DSD/SAP dressing for mild to moderate drainage. Compression stocking 20 to 30 mmHg to knee-high. Wash: Do not get wet Tissue growth optimization: EpiFix anterior, hydrogel lateral Offload: Compression stockings and elevation of the lower extremities. Vascular: Venous Doppler performed 12/09/2023 notes acute DVT left gastroc vein with chronic changes in the left popliteal vein. Edema: Continue elevation of lower extremities at all times of rest and continue compression stocking 20 to 30 mmHg. Infection: No signs of infection Imaging: Radiographs 12/09/2023 of the right foot demonstrates diffuse arthritis. No signs of infection. Pain: May take extra strength Tylenol for discomfort Host factors: Chronic venous stasis and lower extremity edema. I answered all the patient's questions. To return to the wound healing center in 1 week or call sooner if the patient has any questions or concerns.
--- NOTE | 2024-02-19 09:05 | PN.PCM_ITS ---
History of Present Illness Chief Complaint: Venous stasis ulceration, chronic venous insufficiency, varicose veins with inflammation and ulceration, venous hypertension with inflammation and ulceration, venous stasis dermatitis - Left lower extremity History of Wound: DAVID PATTON, is a 73 F who presents to [facility] on 12/09/2023 with complaint of generalized weakness and fatigue for at least 4 weeks duration. She was previously diagnosed with hemolytic anemia by Dr. Tay 10 years ago and her weakness feels the same. Examination in the ER demonstrates an anterior left lower extremity ulceration. Patient reports that she does wear compression stockings and unfortunately the left stocking did roll down her leg became stuck causing circumferential ulcerations. She denies going to the wound care center for treatment of the ulcerations, but has been seen there in the past for venous ulcerations by Dr. Burrows. She denied F/C/chills/SOB/fever. Also denies dysuria and hematuria and chest pain. Workup in the ED did demonstrate neutropenia 3.3, thrombocytopenia, and acute kidney injury BUN of 66. Following admission overnight hemoglobin did decrease from 13.3 down to 4.8 and she was transferred to the ICU with hematology follow up and did receive transfusion which did help. Podiatry was following during admission for left lower extremity ulceration and she did undergo selective debridement at that time. Following discharge she was referred to the wound care center for continued follow of her lower extremity ulcerations. Patient states that she is feeling better since leaving the hospital. She currently denies N/V/F/chills. Denies further complaints. Subjective Subjective This is a 73-year-old female who presents to the wound care center today for continued follow-up of a left lower extremity circumferential ulceration secondary to a compression stocking that had rolled down and got stuck. She continues to leave grafting product intact to the anterior lower extremity. Continues changing dressings overlying the lateral portion of the lower extremity daily. Notes continued improvement in ulcer sites. Patient denies constitutional symptoms. Denies further complaints. Objective Data Objective Data Vital Signs: Vital Signs Temp Pulse Resp BP O2 Del Method 97 F L 117 H 18 119/70 Room Air 02/12/24 09:12 02/12/24 09:12 02/12/24 09:12 02/05/24 09:19 01/22/24 09:06 Oxygen Delivery Method Room Air Physical Exam Const alert, oriented x3 and no apparent distress General Appearance: cooperative HEENT normocephalic Eyes General Eye: normal appearance of both eyes Neck General: normal visual inspection Lymph Lymphatic: no lymphadenopathy noted and no lymphedema noted Resp normal respiratory effort Cardio regular rate and regular rhythm Extremity normal capillary refill and no calf tenderness Extremity Narrative: Vascular: DP and PT pulses palpable right lower extremity, DP weakly palpable left lower extremity, PT palpable left lower extremity. CFT less than 4 seconds to the digits. Normal temperature gradient. Hair growth is absent to digits bilateral. Neurologic: Epicritic sensation intact. No focal deficits noted. Musculoskeletal: Right lower extremity weakness secondary to polio. Left lower extremity muscle strength 5 of 5 age-appropriate. Dermatologic: Left lower extremity demonstrates chronic venous stasis with hemosiderin deposition rubor at the anterior aspect of the lower extremity. There are small circumferential pressure ulceration secondary to compression stocking that had rolled down and got stuck. Ulceration demonstrates s uperficial layers that are granular in nature with some areas with scant yellow fibrotic tissue at the border. No signs of infection. Right lower extremity grossly normal. Skin no rashes or lesions noted, skin turgor normal and no jaundice General Skin Exam: venous stasis and dermatitis Neuro moves all extremities Debridement Note Debridement Note Wound debrided: Left lower extremity lateral Laterality: Left Wound Grade/Stage: Aguila stage I Type of Debridement: Excisional debridement Anesthesia Used: 5% Lidocaine Gel Depth: Down to and including healthy tissue and in the subcutaneous layer Percentage of wound debrided: 100 Instrument Used: 5mm curette Tissue Removed: Fibrous, devitalized subcutaneous, biofilm, slough Severity: Fat Layer Exposed Amount of bleeding with debridement: Mild Bleeding Controlled with: Compression and gauze Patient tolerated procedure: Patient tolerated procedure well Post-Debridement Measurements and Additional Note: Post-Debridement Measurements/Treatment CRYSTAL - Nurse 1 - General Ulcer Assessment Start: 01/22/24 09:06 Freq: Status: Active Protocol: LOCO Activity Type Activity Date Activity User E-sign Co-sign Detail Recorded Client Recorded Date Recorded By Document 01/22/24 09:06 KW [id number] 01/22/24 09:19 KW Document 02/05/24 09:19 RB [id number] 02/05/24 09:23 RB Document 02/12/24 09:12 RB [id number] 02/12/24 09:18 RB 01/22/24 02/05/24 02/12/24 09:06 09:19 09:12 - Today's Visit Information Type of service Follow-up Visit Follow-up Visit Follow-up Visit (Physician/VICE PRESIDENT CORPORATE COMMUNICATIONS (Physician/VICE PRESIDENT CORPORATE COMMUNICATIONS (Physician/VICE PRESIDENT CORPORATE COMMUNICATIONS ) ) ) Arrival Mode Ambulatory Ambulatory Ambulatory Transfer Assistance None None Patient Identification Verified (Name & Yes Yes Yes ) Patient Requires Transmission-Based No No Precautions Vital Signs Temperature (97.8 F-99.1 F) 97.1 F L 97.5 F L 97 F L Temperature Source Temporal Temporal Temporal Pulse Rate (60-100) 129 H 102 H 117 H Pulse Location Monitor Monitor Monitor Respiratory Rate (12-18) 18 18 18 Respiratory rate source Observation Observation Oxygen Delivery Method Room Air Blood Pressure (90/60-120/80) 115/66 119/70 Blood Pressure Mean (mm Hg) 82 86 Source Monitor Monitor Position Sitting Semi-Fowlers Blood Pressure Location Left Arm Left Arm History Since Last Visit- (Skip if this is Patient's initial visit) Have you changed medications since your No No last visit? Any new allergies or adverse reactions No No Had a fall/change in ADL's that may No No increase risk of falls Signs or symptoms of abuse and/or No No neglect since last visit Have you been in the hospital since your No No last visit? Has dressing in place as prescribed Yes Yes Has compression in place as prescribed Yes Yes Has offloadiing in place as prescribed N/A No Experienced any changes in pain level or No No management Left Footwear Regular Shoe Right Footwear Regular Shoe Pain Scale: 0-10 Numeric Is Patient Pain Free? Yes Yes Yes - Nurse 1 - General Ulcer Measurement Start: 01/22/24 09:06 Freq: Status: Active Protocol: Activity Type Activity Date Activity User E-sign Co-sign Detail Recorded Client Recorded Date Recorded By Document 01/22/24 09:06 KW [id number] 01/22/24 09:19 KW Document 02/05/24 09:19 RB [id number] 02/05/24 09:23 RB Document 02/12/24 09:12 RB [id number] 02/12/24 09:18 RB 01/22/24 02/05/24 02/12/24 09:06 09:19 09:12 Wound Center Nurse 1 #4- LLE ANTERIOR CLUSTER -Combined with other wound No No -Current Size (cm) - Length 2.3 2.4 2.5 -Current Size (cm) - Width 9.5 9.7 9.8 -Current Size (cm) - Depth 0.2 0.1 0.2 -Total Square Cm 21.85 23.28 24.50 -Photo Taken No -Tunneling No No -Undermining/Tunneling No No -Circular Undermining No No -Exudate Amt Small Large Medium -Exudate Type Serosanguineous Serosanguineous Serosanguineous -Wound Margin Thickened Distinct, Distinct, Outline Outline Attached Attached -Granulation Amt Medium (34-66%) Medium (34-66%) Medium (34-66%) -Granulation Quality [place] -Slough/Fibrin Yes Yes -Necrosis Amt Medium (34-66%) Medium (34-66%) Medium (34-66%) -Necrotic Tissue Type Adherent Slough Adherent Slough Adherent Slough -Structure Exposed N/A N/A -Texture (Lety-wound Skin Appearance) Assessed Localized Edema Assessed -Moisture (Lety-wound Skin Appearance) Assessed Assessed Assessed -Color (Lety-wound Skin Appearance) Assessed Assessed Assessed -Temperature (Lety-wound Skin No Abnormality No Abnormality No Abnormality Appearance) (Pt Warm) (Pt Warm) (Pt Warm) -Tenderness on Palpation (Lety-wound No No No Skin Appearance) -Ulcer Cleansing Rinsed/ Wound Cleanser Wound Cleanser Irrigated with Saline -Foul Odor after Cleansing No No No -Anesthetic Used 5% Lidocaine 5% Lidocaine 5% Lidocaine Gel Gel Gel 3. LLE lat cluster -Combined with other wound No No -Current Size (cm) - Length 1.6 1.7 1.4 -Current Size (cm) - Width 2 2.3 1.9 -Current Size (cm) - Depth 0.2 0.1 0.2 -Total Square Cm 3.2 3.91 2.66 -Photo Taken No -Tunneling No No -Undermining/Tunneling No No -Circular Undermining No No -Exudate Amt Small Medium Medium -Exudate Type Serosanguineous Serosanguineous Serosanguineous -Wound Margin Thickened Distinct, Distinct, Outline Outline Attached Attached -Granulation Amt Medium (34-66%) Medium (34-66%) Medium (34-66%) -Granulation Quality [place] -Slough/Fibrin Yes Yes -Necrosis Amt Medium (34-66%) Medium (34-66%) Medium (34-66%) -Necrotic Tissue Type Adherent Slough Adherent Slough Adherent Slough -Structure Exposed N/A N/A -Texture (Lety-wound Skin Appearance) Assessed Assessed, Assessed Localized Edema -Moisture (Lety-wound Skin Appearance) Assessed Assessed Assessed -Color (Lety-wound Skin Appearance) Assessed Assessed Assessed -Temperature (Lety-wound Skin No Abnormality No Abnormality No Abnormality Appearance) (Pt Warm) (Pt Warm) (Pt Warm) -Tenderness on Palpation (Lety-wound No No No Skin Appearance) -Ulcer Cleansing Rinsed/ Wound Cleanser Wound Cleanser Irrigated with Saline -Foul Odor after Cleansing No No No -Anesthetic Used 5% Lidocaine 5% Lidocaine 5% Lidocaine Gel Gel Gel Lower Limb Edema Present Yes Yes Left Calf (cm) 37.5 40.5 40.2 Left Ankle (cm) 26.4 29.5 26.8 WC - Nurse 2 - General Ulcer CM Notes Start: 01/22/24 09:06 Freq: Status: Active Protocol: Activity Type Activity Date Activity User E-sign Co-sign Detail Recorded Client Recorded Date Recorded By Document 01/22/24 09:54 [facility] [id number] 01/22/24 10:04 [facility] Document 02/05/24 09:28 [facility] [id number] 02/05/24 09:38 [facility] Document 02/12/24 09:23 [facility] [id number] 02/12/24 09:33 [facility] 01/22/24 02/05/24 02/12/24 09:54 09:28 09:23 Wound Center Nurse 2 #4- LLE ANTERIOR CLUSTER -Time 09:54 09:29 09:24 -Correct Patient Yes Yes Yes -Correct Side, Site, Position Yes Yes Yes -Correct Procedure Yes Yes Yes -Procedure Performed Yes Yes Yes -Type of Procedure Debridement Debridement Debridement -Clinical Debridement Subcutaneous Subcutaneous Subcutaneous -Tissue Removed Subcutaneous Subcutaneous Subcutaneous -Post Debridement (cm) - Length 2.4 2.4 2.5 -Post Debridement (cm) - Width 9.5 9.3 9.2 -Post Debridement (cm) - Depth 0.1 0.1 0.1 -Total Square (Post) (cm) 22.80 22.32 23.00 -Area of Debridement (cm) - Length 2.4 2.4 2.5 -Area of Debridement (cm) - Width 9.5 9.3 9.2 -Total Square (Area) (cm) 22.80 22.32 23.00 -Tunneling No No No -Undermining/Tunneling No No No -Circular Undermining No No No -Wound/Ulcer Outcome Not Healed Not Healed Not Healed -Ulcer Cleansing Rinsed/ Rinsed/ Rinsed/ Irrigated with Irrigated with Irrigated with Saline Saline Saline -Foul Odor after Cleansing No No No -Bioengineered Tissue Yes Yes No -Type of Bioengineered Tissue Epifix Mesh Epifix Mesh Epifix Mesh -Expiration Date 07/20/28 07/20/28 07/20/28 -Product Lot Number [id number] -Percent Used 100 100 100 -Lot number of Saline Used [id number] -Bleeding Controlled with Pressure Pressure Pressure -Treatment Response Procedure Procedure Procedure Tolerated Well Tolerated Well Tolerated Well -Debridement - Subq, 1st 20sq cm No No No -Apply Skin Sub - 1st 25 sq cm - Legs 1 1 1 -Epifix Mesh (per sq cm) 11 11 11 3. LLE lat cluster -Time 09:56 09:29 09:28 -Correct Patient Yes Yes Yes -Correct Side, Site, Position Yes Yes Yes -Correct Procedure Yes Yes Yes -Procedure Performed Yes Yes Yes -Type of Procedure Debridement Debridement Debridement -Clinical Debridement Subcutaneous Subcutaneous Subcutaneous -Tissue Removed Subcutaneous Subcutaneous Subcutaneous -Post Debridement (cm) - Length 1.7 1.7 1.3 -Post Debridement (cm) - Width 2.4 2 2.2 -Post Debridement (cm) - Depth 0.1 0.1 0.1 -Total Square (Post) (cm) 4.08 3.4 2.86 -Area of Debridement (cm) - Length 1.7 1.7 1.3 -Area of Debridement (cm) - Width 2.4 2 2.2 -Total Square (Area) (cm) 4.08 3.4 2.86 -Tunneling No No No -Undermining/Tunneling No No No -Circular Undermining No No No -Wound/Ulcer Outcome Not Healed Not Healed Not Healed -Ulcer Cleansing Rinsed/ Rinsed/ Rinsed/ Irrigated with Irrigated with Irrigated with Saline Saline Saline -Foul Odor after Cleansing No No No -Bioengineered Tissue No No No -Bleeding Controlled with Pressure Pressure Pressure -Treatment Response Procedure Procedure Procedure Tolerated Well Tolerated Well Tolerated Well -Debridement - Subq, 1st 20sq cm Yes Yes Yes Pain Scale: 0-10 Numeric Is Patient Pain Free? Yes Yes Yes - Nurse 3 - General Ulcer D/C NN Start: 01/22/24 09:06 Freq: Status: Active Protocol: Activity Type Activity Date Activity User E-sign Co-sign Detail Recorded Client Recorded Date Recorded By Document 01/22/24 10:19 DL [id number] 01/22/24 10:20 DL Document 02/05/24 09:48 BMF [id number] 02/05/24 09:49 BMF Document 02/12/24 09:56 RB [id number] 02/12/24 09:57 RB 01/22/24 02/05/24 02/12/24 10:19 09:48 09:56 Wound Care Center Nurse 3 #4- LLE ANTERIOR CLUSTER -Foul Odor after Cleansing No -Primary Dressing Applied Aquacel Extra Aquacel Extra Aquacel Extra -Other Dressing Epimesh epifix mesh -Primary Dressing Covered/Secured with Dry Gauze & Dry Gauze & Dry Gauze,Dry Roll Gauze, Roll Gauze, Gauze & Roll Secured with Secured with Gauze,Secured Tape Tape with Tape -Other Covering abd ABD -Aquacel Extra 1 2 1 3. LLE lat cluster -Foul Odor after Cleansing No -Primary Dressing Applied Aquacel Extra Aquacel Extra -Other Dressing epimesh AQUACEL -Primary Dressing Covered/Secured with Dry Gauze & Dry Gauze & Dry Gauze, Roll Gauze Roll Gauze, Secured with Secured with Tape Tape -Other Covering abd ABD -Aquacel Extra 1 0 johny -Tubular Bandage Single Layer Single Layer Single Layer -Size of Tubigrip Used Size E Size E Size E -Size E ($) 1 2 2 Treatment Response Procedure Procedure Procedure Tolerated Well Tolerated Well Tolerated Well Pain Scale: 0-10 Numeric Is Patient Pain Free? Yes Yes Yes WC - Visit Discharge Discharge Condition Stable Stable Stable Ambulatory Status Ambulatory Ambulatory Ambulatory Transportation Private Auto Private Auto Private Auto Medication Reconcilliation completed & No provided to patient/care provider Clinical Summary of Care Provided Yes Facility Type Home Health Orders Sent Yes Additional Wound Wound debrided: Left lower extremity anterior Laterality: Left Wound Grade/Stage: Aguila stage I Type of Debridement: Excisional debridement Anesthesia Used: 5% Lidocaine Gel Depth: Down to and including healthy tissue and in the subcutaneous layer Percentage of wound debrided: 100 Instrument Used: 5mm curette Tissue Removed: Fibrous, devitalized subcutaneous, biofilm, slough Severity: Fat Layer Exposed Amount of bleeding with debridement: Mild Bleeding Controlled with: Compression and gauze Patient tolerated procedure: Patient tolerated procedure well Assessment/Plan Assessment/Plan (1) Non-pressure chronic ulcer of left calf with fat layer exposed: CODE(S): L97.222 - Non-pressure chronic ulcer of left calf with fat layer exposed (2) Venous stasis dermatitis of left lower extremity: CODE(S): I87.2 - Venous insufficiency (chronic) (peripheral) (3) Leg edema: CODE(S): R60.0 - Localized edema PLAN: Plan Patient seen and evaluated Pre-debridement: Lateral LLE cluster: 1.2 cm x 2.0 cm x 0.1 cm; Anterior LLE cluster: 2.4 cm x 9.1 cm x 0.1 cm Ulceration was debrided as noted in the clinical panel above. Postdebridement measurement was Lateral LLE cluster: 1.3 cm x 2.2 cm x 0.1 cm; Anterior LLE cluster: 2.5 cm x 9.2 cm x 0.1 cm. No signs of infection. EpiFix #3 applied to anterior ulceration site and dressed with Adaptic touch, and Steri-Strips, Aquacel Ag and dry sterile dressing. Tubigrip compression applied to left lower extremity. She does continue to wear compression stocking to the right lower extremity. Lateral site underwent debridement and dressed with hydrogel and DSD. There is a decrease in the ulcerations sizes versus previous visit. Continues healing well. Edema has improved. Continues Tubigrip compression She has been approved for EpiFix application, will continue applying. She is to continue to elevate lower extremities at all times of rest to aid in edema control Recommend continued use of compression stockings once ulcerations have healed. Compression recommended 20 to 30 mmHg. Recommended updating compression stockings to proper sizing as her previous stockings have rolled down her leg causing the ulceration. Discussed signs and symptoms of infection. Discussed if she notices increasing redness about the ulcer sites that moves up the leg or if red streaking is noted up the leg, purulent drainage from the wound sites, increasing foul odor from the wound, or if she experiences fever greater than 101 degree accompanied by nausea, vomiting, chills of these are signs of a progressing infection and she should report to the ED to receive IV antibiotics and further evaluation. She is understanding of this today. The following work up and care recommendations were made: Dressing: Epifix, Adaptic touch and steri-strips, Aquacel Ag and dry sterile dressing to anterior. Lateral leg Hydrogel and DSD/SAP dressing for mild to moderate drainage. Compression stocking 20 to 30 mmHg to knee-high. Wash: Do not get wet Tissue growth optimization: EpiFix anterior, hydrogel lateral Offload: Compression stockings and elevation of the lower extremities. Vascular: Venous Doppler performed 12/09/2023 notes acute DVT left gastroc vein with chronic changes in the left popliteal vein. Edema: Continue elevation of lower extremities at all times of rest and continue compression stocking 20 to 30 mmHg. Infection: No signs of infection Imaging: Radiographs 12/09/2023 of the right foot demonstrates diffuse arthritis. No signs of infection. Pain: May take extra strength Tylenol for discomfort Host factors: Chronic venous stasis and lower extremity edema. I answered all the patient's questions. To return to the wound healing center in 1 week or call sooner if the patient has any questions or concerns.
[2024-02-19 09:14] VITALS: BP 120/66; PULSE 112; RESP 18; TEMP 36.1
== END 2024-02-19 23:59 | disposition home or self-care (01) ==
LOC: WC 09:00
PROVIDERS: PCP Internal Medicine; Referring Provider Student in an Organized Health Care Education/Training Program; Visit Provider Student in an Organized Health Care Education/Training Program
DX: I87.332 Chronic venous hypertension (idiopathic) with ulcer and inflammation of left lower extremity (principal); L97.222 Non-pressure chronic ulcer of left calf with fat layer exposed; I87.2 Venous insufficiency (chronic) (peripheral); R60.0 Localized edema
CPT/HCPCS: 11042; 15271; Q4186

== ENCOUNTER 2024-03-11 09:00 | Outpatient (RCR) | payer MEDICARE, SELFPAY ==
[2024-02-20 00:46] VITALS: BP 134/63; PULSE 88; RESP 18; TEMP 36.6
[2024-02-26 09:13] VITALS: BP 108/60; PULSE 112; RESP 18; TEMP 36.8
--- NOTE | 2024-02-26 12:30 | PCM.WC.PN ---
History of Present Illness Date of Service: 02/26/24 Chief Complaint: Venous stasis ulceration, chronic venous insufficiency, varicose veins with inflammation and ulceration, venous hypertension with inflammation and ulceration, venous stasis dermatitis - Left lower extremity History of Wound: DAVID PATTON, is a 73 F who presents to [facility] on 12/09/2023 with complaint of generalized weakness and fatigue for at least 4 weeks duration. She was previously diagnosed with hemolytic anemia by Dr. Tay 10 years ago and her weakness feels the same. Examination in the ER demonstrates an anterior left lower extremity ulceration. Patient reports that she does wear compression stockings and unfortunately the left stocking did roll down her leg became stuck causing circumferential ulcerations. She denies going to the wound care center for treatment of the ulcerations, but has been seen there in the past for venous ulcerations by Dr. Burrows. She denied F/C/chills/SOB/fever. Also denies dysuria and hematuria and chest pain. Workup in the ED did demonstrate neutropenia 3.3, thrombocytopenia, and acute kidney injury BUN of 66. Following admission overnight hemoglobin did decrease from 13.3 down to 4.8 and she was transferred to the ICU with hematology follow up and did receive transfusion which did help. Podiatry was following during admission for left lower extremity ulceration and she did undergo selective debridement at that time. Following discharge she was referred to the wound care center for continued follow of her lower extremity ulcerations. Patient states that she is feeling better since leaving the hospital. She currently denies N/V/F/chills. Denies further complaints. Subjective Subjective This is a 73-year-old female who presents to the wound care center today for continued follow-up of a left lower extremity circumferential ulceration secondary to a compression stocking that had rolled down and got stuck. She continues to leave grafting product intact to the anterior lower extremity. Continues changing dressings overlying the lateral portion of the lower extremity daily. Notes continued progress in healing with ulcer sizes decreasing. Patient denies constitutional symptoms. Denies further complaints. Objective Data Objective Data Vital Signs: Vital Signs Temp Pulse Resp BP O2 Del Method 98.3 F 112 H 18 108/60 Room Air 02/26/24 09:13 02/26/24 09:13 02/26/24 09:13 02/26/24 09:13 02/26/24 09:13 Oxygen Delivery Method Room Air Physical Exam Const alert, oriented x3 and no apparent distress General Appearance: cooperative HEENT normocephalic Eyes General Eye: normal appearance of both eyes Neck General: normal visual inspection Lymph Lymphatic: no lymphadenopathy noted and no lymphedema noted Resp normal respiratory effort Cardio regular rate and regular rhythm Extremity Extremity Narrative: Vascular: DP and PT pulses palpable right lower extremity, DP weakly palpable left lower extremity, PT palpable left lower extremity. CFT less than 4 seconds to the digits. Normal temperature gradient. Hair growth is absent to digits bilateral. Neurologic: Epicritic sensation intact. No focal deficits noted. Musculoskeletal: Right lower extremity weakness secondary to polio. Left lower extremity muscle strength 5 of 5 age-appropriate. Dermatologic: Left lower extremity demonstrates chronic venous stasis with hemosiderin deposition rubor at the anterior aspect of the lower extremity. There are small circumferential pressure ulcerations secondary to compression stocking that had rolled down and got stuck. Ulcerations demonstrates superficial layers that are granular in nature with some areas with scant yellow fibrotic tissue at the border. Ulcerations are improving with reduction in size. No signs of infection. Right lower extremity grossly normal. Skin no rashes or lesions noted, skin turgor normal and no jaundice General Skin Exam: venous stasis and dermatitis Neuro moves all extremities Debridement Note Debridement Note Wound debrided: Left lower extremity lateral Laterality: Left Wound Grade/Stage: Aguila stage I Type of Debridement: Excisional debridement Anesthesia Used: 5% Lidocaine Gel Depth: Down to and including healthy tissue and in the subcutaneous layer Percentage of wound debrided: 100 Instrument Used: 5mm curette Tissue Removed: Fibrous, devitalized subcutaneous, biofilm, slough Severity: Fat Layer Exposed Amount of bleeding with debridement: Mild Bleeding Controlled with: Compression and gauze Patient tolerated procedure: Patient tolerated procedure well Post-Debridement Measurements and Additional Note: Post-Debridement Measurements/Treatment - Nurse 1 - General Ulcer Assessment Start: 02/26/24 09:13 Freq: Status: Active Protocol: LOCO Activity Type Activity Date Activity User E-sign Co-sign Detail Recorded Client Recorded Date Recorded By Document 02/26/24 09:13 KW [id number] 02/26/24 09:25 KW 02/26/24 09:13 - Today's Visit Information Type of service Follow-up Visit (Physician/CELL LEAD ) Arrival Mode Ambulatory Patient Identification Verified (Name & Yes ) Vital Signs Temperature (97.8 F-99.1 F) 98.3 F Temperature Source Temporal Pulse Rate (60-100) 112 H Pulse Location Monitor Respiratory Rate (12-18) 18 Respiratory rate source Observation Oxygen Delivery Method Room Air Blood Pressure (90/60-120/80) 108/60 Blood Pressure Mean (mm Hg) 76 Source Monitor Position Semi-Fowlers Blood Pressure Location Left Arm History Since Last Visit- (Skip if this is Patient's initial visit) Have you changed medications since your No last visit? Any new allergies or adverse reactions No Had a fall/change in ADL's that may No increase risk of falls Signs or symptoms of abuse and/or No neglect since last visit Have you been in the hospital since your No last visit? Has dressing in place as prescribed Yes Has compression in place as prescribed Yes Has offloadiing in place as prescribed N/A Experienced any changes in pain level or No management Left Footwear Regular Shoe Right Footwear Regular Shoe Pain Scale: 0-10 Numeric Is Patient Pain Free? Yes WC - Nurse 1 - General Ulcer Measurement Start: 02/26/24 09:13 Freq: Status: Active Protocol: Activity Type Activity Date Activity User E-sign Co-sign Detail Recorded Client Recorded Date Recorded By Document 02/26/24 09:13 RAGINI [id number] 02/26/24 09:25 KW 02/26/24 09:13 Wound Center Nurse 1 #4- LLE ANTERIOR CLUSTER -Current Size (cm) - Length 10 -Current Size (cm) - Width 3 -Current Size (cm) - Depth 0.3 -Total Square Cm 30 -Epithelialization Medium 34-66% -Exudate Amt Medium -Exudate Type Serosanguineous -Wound Margin Distinct, Outline Attached -Granulation Amt Medium (34-66%) -Slough/Fibrin Yes -Necrosis Amt Medium (34-66%) -Necrotic Tissue Type Adherent Slough -Texture (Lety-wound Skin Appearance) Assessed -Moisture (Lety-wound Skin Appearance) Assessed -Color (Lety-wound Skin Appearance) Assessed -Temperature (Lety-wound Skin No Abnormality Appearance) (Pt Warm) -Ulcer Cleansing Soap and Water -Foul Odor after Cleansing No -Anesthetic Used 5% Lidocaine Gel 3. LLE lat cluster -Current Size (cm) - Length 1.2 -Current Size (cm) - Width 2.5 -Current Size (cm) - Depth 0.2 -Total Square Cm 3.00 -Exudate Amt Medium -Exudate Type Serosanguineous -Wound Margin Distinct, Outline Attached -Granulation Amt Medium (34-66%) -Slough/Fibrin Yes -Necrosis Amt Medium (34-66%) -Texture (Lety-wound Skin Appearance) Assessed -Moisture (Lety-wound Skin Appearance) Assessed -Color (Lety-wound Skin Appearance) Assessed -Temperature (Lety-wound Skin No Abnormality Appearance) (Pt Warm) -Tenderness on Palpation (Lety-wound No Skin Appearance) -Ulcer Cleansing Soap and Water -Anesthetic Used 5% Lidocaine Gel Left Calf (cm) 44.5 Left Ankle (cm) 27.5 WC - Nurse 2 - General Ulcer CM Notes Start: 02/26/24 09:13 Freq: Status: Active Protocol: Activity Type Activity Date Activity User E-sign Co-sign Detail Recorded Client Recorded Date Recorded By Document 02/26/24 09:39 [facility] [id number] 02/26/24 09:45 [facility] 02/26/24 09:39 Wound Center Nurse 2 #4- LLE ANTERIOR CLUSTER -Time 09:39 -Correct Patient Yes -Correct Side, Site, Position Yes -Correct Procedure Yes -Procedure Performed Yes -Type of Procedure Debridement -Clinical Debridement Subcutaneous -Tissue Removed Subcutaneous -Post Debridement (cm) - Length 1.4 -Post Debridement (cm) - Width 9 -Post Debridement (cm) - Depth 0.1 -Total Square (Post) (cm) 12.6 -Area of Debridement (cm) - Length 1.4 -Area of Debridement (cm) - Width 9 -Total Square (Area) (cm) 12.6 -Tunneling No -Undermining/Tunneling No -Circular Undermining No -Wound/Ulcer Outcome Not Healed -Ulcer Cleansing Rinsed/ Irrigated with Saline -Foul Odor after Cleansing No -Bioengineered Tissue No -Type of Bioengineered Tissue Epifix Mesh -Expiration Date 08/19/28 -Product Lot Number [id number] -Percent Used 100 -Lot number of Saline Used [id number] -Bleeding Controlled with Pressure -Treatment Response Procedure Tolerated Well -Debridement - Subq, 1st 20sq cm No -Apply Skin Sub - 1st 25 sq cm - Legs 1 -Epifix Mesh (per sq cm) 11 3. LLE lat cluster -Time 09:40 -Correct Patient Yes -Correct Side, Site, Position Yes -Correct Procedure Yes -Procedure Performed Yes -Type of Procedure Debridement -Clinical Debridement Subcutaneous -Tissue Removed Subcutaneous -Tunneling No -Undermining/Tunneling No -Circular Undermining No -Wound/Ulcer Outcome Not Healed -Ulcer Cleansing Rinsed/ Irrigated with Saline -Foul Odor after Cleansing No -Bioengineered Tissue No -Bleeding Controlled with Pressure -Treatment Response Procedure Tolerated Well -Debridement - Subq, 1st 20sq cm Yes Pain Scale: 0-10 Numeric Is Patient Pain Free? Yes - Nurse 3 - General Ulcer D/C NN Start: 02/26/24 09:13 Freq: Status: Active Protocol: Activity Type Activity Date Activity User E-sign Co-sign Detail Recorded Client Recorded Date Recorded By Document 02/26/24 09:58 DL [id number] 02/26/24 10:00 DL 02/26/24 09:58 Wound Care Center Nurse 3 #4- LLE ANTERIOR CLUSTER -Foul Odor after Cleansing No -Primary Dressing Applied Aquacel Extra -Primary Dressing Covered/Secured with Dry Gauze & Roll Gauze, Secured with Tape -Aquacel Extra 1 3. LLE lat cluster -Foul Odor after Cleansing No -Other Dressing AQUACEL EX -Primary Dressing Covered/Secured with Dry Gauze & Roll Gauze, Secured with Tape Left -Tubular Bandage Single Layer -Size of Tubigrip Used Size E -Size E ($) 1 Treatment Response Procedure Tolerated Well Pain Scale: 0-10 Numeric Is Patient Pain Free? Yes - Visit Discharge Discharge Condition Stable Ambulatory Status Ambulatory Transportation Private [facility] Facility Type Home Health Orders Sent Yes Additional Wound Wound debrided: Left lower extremity anterior Laterality: Left Wound Grade/Stage: Aguila stage I Type of Debridement: Excisional debridement Anesthesia Used: 5% Lidocaine Gel Depth: Down to and including healthy tissue and in the subcutaneous layer Percentage of wound debrided: 100 Instrument Used: 5mm curette Tissue Removed: Fibrous, devitalized subcutaneous, biofilm, slough Severity: Fat Layer Exposed Amount of bleeding with debridement: Mild Bleeding Controlled with: Compression and gauze Patient tolerated procedure: Patient tolerated procedure well Assessment/Plan Assessment/Plan (1) Non-pressure chronic ulcer of left calf with fat layer exposed: CODE(S): L97.222 - Non-pressure chronic ulcer of left calf with fat layer exposed (2) Venous stasis dermatitis of left lower extremity: CODE(S): I87.2 - Venous insufficiency (chronic) (peripheral) (3) Leg edema: CODE(S): R60.0 - Localized edema PLAN: Plan Patient seen and evaluated Pre-debridement: Lateral LLE cluster: 1.0 cm x 1.1 cm x 0.1 cm; Anterior LLE cluster: 1.3 cm x 8.9 cm x 0.1 cm Ulceration was debrided as noted in the clinical panel above. Postdebridement measurement was Lateral LLE cluster: 1.1 cm x 1.2 cm x 0.1 cm; Anterior LLE cluster: 1.4 cm x 9.0 cm x 0.1 cm. No signs of infection. EpiFix #5 applied to anterior ulceration site and dressed with Adaptic touch, and Steri-Strips, Aquacel Ag and dry sterile dressing. Tubigrip compression applied to left lower extremity. She does continue to wear compression stocking to the right lower extremity. Lateral site underwent debridement and dressed with hydrogel and DSD. There is continued decrease in the ulcerations sizes versus previous visit. Continues healing well. Edema has improved and maintained with compression. Continues Tubigrip compression She has been approved for EpiFix application, will continue applying. She is to continue to elevate lower extremities at all times of rest to aid in edema control Recommend continued use of compression stockings once ulcerations have healed. Compression recommended 20 to 30 mmHg. Recommended updating compression stockings to proper sizing as her previous stockings have rolled down her leg causing the ulceration. Discussed signs and symptoms of infection. Discussed if she notices increasing redness about the ulcer sites that moves up the leg or if red streaking is noted up the leg, purulent drainage from the wound sites, increasing foul odor from the wound, or if she experiences fever greater than 101 degree accompanied by nausea, vomiting, chills of these are signs of a progressing infection and she should report to the ED to receive IV antibiotics and further evaluation. She is understanding of this today. The following work up and care recommendations were made: Dressing: Epifix, Adaptic touch and steri-strips, Aquacel Ag and dry sterile dressing to anterior. Lateral leg Hydrogel and DSD/SAP dressing for mild to moderate drainage. Compression stocking 20 to 30 mmHg to knee-high. Wash: Do not get wet Tissue growth optimization: EpiFix anterior, hydrogel lateral Offload: Compression stockings and elevation of the lower extremities. Vascular: Venous Doppler performed 12/09/2023 notes acute DVT left gastroc vein with chronic changes in the left popliteal vein. Edema: Continue elevation of lower extremities at all times of rest and continue compression stocking 20 to 30 mmHg. Infection: No signs of infection Imaging: Radiographs 12/09/2023 of the right foot demonstrates diffuse arthritis. No signs of infection. Pain: May take extra strength Tylenol for discomfort Host factors: Chronic venous stasis and lower extremity edema. I answered all the patient's questions. To return to the wound healing center in 1 week or call sooner if the patient has any questions or concerns.
--- NOTE | 2024-03-01 09:16 | WC ---
PHOTO 02/26/24 ALVARO
[2024-03-04 09:13] VITALS: BP 123/57; PULSE 108; RESP 20; TEMP 36.1
--- NOTE | 2024-03-04 10:07 | PCM.WC.PN ---
History of Present Illness Date of Service: 03/04/24 Chief Complaint: Venous stasis ulceration, chronic venous insufficiency, varicose veins with inflammation and ulceration, venous hypertension with inflammation and ulceration, venous stasis dermatitis - Left lower extremity History of Wound: DAVID PATTON, is a 73 F who presents to [facility] on 12/09/2023 with complaint of generalized weakness and fatigue for at least 4 weeks duration. She was previously diagnosed with hemolytic anemia by Dr. Tay 10 years ago and her weakness feels the same. Examination in the ER demonstrates an anterior left lower extremity ulceration. Patient reports that she does wear compression stockings and unfortunately the left stocking did roll down her leg became stuck causing circumferential ulcerations. She denies going to the wound care center for treatment of the ulcerations, but has been seen there in the past for venous ulcerations by Dr. Burrows. She denied F/C/chills/SOB/fever. Also denies dysuria and hematuria and chest pain. Workup in the ED did demonstrate neutropenia 3.3, thrombocytopenia, and acute kidney injury BUN of 66. Following admission overnight hemoglobin did decrease from 13.3 down to 4.8 and she was transferred to the ICU with hematology follow up and did receive transfusion which did help. Podiatry was following during admission for left lower extremity ulceration and she did undergo selective debridement at that time. Following discharge she was referred to the wound care center for continued follow of her lower extremity ulcerations. Patient states that she is feeling better since leaving the hospital. She currently denies N/V/F/chills. Denies further complaints. Subjective Subjective This is a 73-year-old female who presents to the wound care center today for continued follow-up of a left lower extremity circumferential ulceration secondary to a compression stocking that had rolled down and got stuck. She continues to leave grafting product intact to the anterior lower extremity. Continues changing dressings overlying the lateral portion of the lower extremity daily. States the anterior site appears much smaller today. Patient denies constitutional symptoms. Denies further complaints. Objective Data Objective Data Vital Signs: Vital Signs Temp Pulse Resp BP O2 Del Method 97 F L 108 H 20 H 123/57 H Room Air 03/04/24 09:13 03/04/24 09:13 03/04/24 09:13 03/04/24 09:13 03/04/24 09:13 Oxygen Delivery Method Room Air Physical Exam Const alert, oriented x3 and no apparent distress General Appearance: cooperative HEENT normocephalic Eyes General Eye: normal appearance of both eyes Neck General: normal visual inspection Lymph Lymphatic: no lymphadenopathy noted and no lymphedema noted Resp normal respiratory effort Cardio regular rate and regular rhythm Extremity Extremity Narrative: Vascular: DP and PT pulses palpable right lower extremity, DP weakly palpable left lower extremity, PT palpable left lower extremity. CFT less than 4 seconds to the digits. Normal temperature gradient. Hair growth is absent to digits bilateral. Neurologic: Epicritic sensation intact. No focal deficits noted. Musculoskeletal: Right lower extremity weakness secondary to polio. Left lower extremity muscle strength 5 of 5 age-appropriate. Dermatologic: Left lower extremity demonstrates chronic venous stasis with hemosiderin deposition rubor at the anterior aspect of the lower extremity. There are small circumferential pressure ulcerations secondary to compression stocking that had rolled down and got stuck. Ulcerations demonstrates superficial layers that are granular in nature with some areas with scant yellow fibrotic tissue at the border. Ulcerations are improving with reduction in size. No signs of infection. Right lower extremity grossly normal. Skin no rashes or lesions noted, skin turgor normal and no jaundice General Skin Exam: venous stasis and dermatitis Neuro moves all extremities Debridement Note Debridement Note Wound debrided: Left lower anterior extremity Laterality: Left Wound Grade/Stage: Aguila stage I Type of Debridement: Excisional debridement Anesthesia Used: 5% Lidocaine Gel Depth: Down to and including healthy tissue and in the subcutaneous layer Percentage of wound debrided: 100 Instrument Used: 5mm curette Tissue Removed: Fibrous, devitalized subcutaneous, biofilm, slough Severity: Fat Layer Exposed Amount of bleeding with debridement: Mild Bleeding Controlled with: Compression and gauze Patient tolerated procedure: Patient tolerated procedure well Post-Debridement Measurements and Additional Note: Post-Debridement Measurements/Treatment - Nurse 1 - General Ulcer Assessment Start: 02/26/24 09:13 Freq: Status: Active Protocol: LOCO Activity Type Activity Date Activity User E-sign Co-sign Detail Recorded Client Recorded Date Recorded By Document 02/26/24 09:13 KW [id number] 02/26/24 09:25 KW Document 03/04/24 09:13 MT [id number] 03/04/24 09:21 WV 02/26/24 03/04/24 09:13 09:13 - Today's Visit Information Type of service Follow-up Visit Follow-up Visit (Physician/BARN WORKER (Physician/BARN WORKER ) ) Arrival Mode Ambulatory Ambulatory Accompanied by self Patient Identification Verified (Name & Yes Yes ) Safety Precautions Fall Prevention Vital Signs Temperature (97.8 F-99.1 F) 98.3 F 97 F L Temperature Source Temporal Temporal Pulse Rate (60-100) 112 H 108 H Pulse Location Monitor Monitor Respiratory Rate (12-18) 18 20 H Respiratory rate source Observation Observation Oxygen Delivery Method Room Air Room Air Blood Pressure (90/60-120/80) 108/60 123/57 H Blood Pressure Mean (mm Hg) 76 79 Source Monitor Monitor Position Semi-Fowlers Sitting Blood Pressure Location Left Arm Left Arm History Since Last Visit- (Skip if this is Patient's initial visit) Have you changed medications since your No last visit? Any new allergies or adverse reactions No Had a fall/change in ADL's that may No increase risk of falls Signs or symptoms of abuse and/or No neglect since last visit Have you been in the hospital since your No last visit? Has dressing in place as prescribed Yes Yes Has compression in place as prescribed Yes Yes Has offloadiing in place as prescribed N/A Yes Experienced any changes in pain level or No Yes management Left Footwear Regular Shoe Regular Shoe Right Footwear Regular Shoe Regular Shoe Pain Scale: 0-10 Numeric Is Patient Pain Free? Yes Yes - Nurse 1 - General Ulcer Measurement Start: 02/26/24 09:13 Freq: Status: Active Protocol: Activity Type Activity Date Activity User E-sign Co-sign Detail Recorded Client Recorded Date Recorded By Document 02/26/24 09:13 KW [id number] 02/26/24 09:25 KW Document 03/04/24 09:13 WV [id number] 03/04/24 09:21 MT 02/26/24 03/04/24 09:13 09:13 Wound Center Nurse 1 #4- LLE ANTERIOR CLUSTER -Current Size (cm) - Length 10 2.5 -Current Size (cm) - Width 3 6.2 -Current Size (cm) - Depth 0.3 0.1 -Total Square Cm 30 15.50 -Epithelialization Medium 34-66% -Exudate Amt Medium Medium -Exudate Type Serosanguineous Serosanguineous -Wound Margin Distinct, Thickened & Outline Rolled Under Attached -Granulation Amt Medium (34-66%) Small (1-33%) -Granulation Quality Pale,Accord -Slough/Fibrin Yes -Necrosis Amt Medium (34-66%) Large (67-100%) -Necrotic Tissue Type Adherent Slough Adherent Slough -Texture (Lety-wound Skin Appearance) Assessed Assessed -Moisture (Lety-wound Skin Appearance) Assessed Assessed -Color (Lety-wound Skin Appearance) Assessed Assessed -Temperature (Lety-wound Skin No Abnormality No Abnormality Appearance) (Pt Warm) (Pt Warm) -Tenderness on Palpation (Lety-wound No Skin Appearance) -Ulcer Cleansing Soap and Water Soap and Water -Foul Odor after Cleansing No No -Anesthetic Used 5% Lidocaine 5% Lidocaine Gel Gel 3. LLE lat cluster -Current Size (cm) - Length 1.2 1 -Current Size (cm) - Width 2.5 1 -Current Size (cm) - Depth 0.2 0.2 -Total Square Cm 3.00 1 -Tunneling No -Undermining/Tunneling No -Circular Undermining No -Exudate Amt Medium Medium -Exudate Type Serosanguineous Serosanguineous -Wound Margin Distinct, Thickened & Outline Rolled Under Attached -Granulation Amt Medium (34-66%) Small (1-33%) -Granulation Quality Pale,Accord -Slough/Fibrin Yes -Necrosis Amt Medium (34-66%) Large (67-100%) -Necrotic Tissue Type Adherent Slough -Texture (Lety-wound Skin Appearance) Assessed Assessed -Moisture (Lety-wound Skin Appearance) Assessed Assessed -Color (Lety-wound Skin Appearance) Assessed Assessed -Temperature (Lety-wound Skin No Abnormality No Abnormality Appearance) (Pt Warm) (Pt Warm) -Tenderness on Palpation (Lety-wound No No Skin Appearance) -Ulcer Cleansing Soap and Water Soap and Water -Foul Odor after Cleansing No -Anesthetic Used 5% Lidocaine 5% Lidocaine Gel Gel Left Calf (cm) 44.5 Left Ankle (cm) 27.5 WC - Nurse 2 - General Ulcer CM Notes Start: 02/26/24 09:13 Freq: Status: Active Protocol: Activity Type Activity Date Activity User E-sign Co-sign Detail Recorded Client Recorded Date Recorded By Document 02/26/24 09:39 [facility] [id number] 02/26/24 09:45 BMF 02/26/24 09:39 Wound Center Nurse 2 #4- LLE ANTERIOR CLUSTER -Time 09:39 -Correct Patient Yes -Correct Side, Site, Position Yes -Correct Procedure Yes -Procedure Performed Yes -Type of Procedure Debridement -Clinical Debridement Subcutaneous -Tissue Removed Subcutaneous -Post Debridement (cm) - Length 1.4 -Post Debridement (cm) - Width 9 -Post Debridement (cm) - Depth 0.1 -Total Square (Post) (cm) 12.6 -Area of Debridement (cm) - Length 1.4 -Area of Debridement (cm) - Width 9 -Total Square (Area) (cm) 12.6 -Tunneling No -Undermining/Tunneling No -Circular Undermining No -Wound/Ulcer Outcome Not Healed -Ulcer Cleansing Rinsed/ Irrigated with Saline -Foul Odor after Cleansing No -Bioengineered Tissue No -Type of Bioengineered Tissue Epifix Mesh -Expiration Date 08/19/28 -Product Lot Number [id number] -Percent Used 100 -Lot number of Saline Used [id number] -Bleeding Controlled with Pressure -Treatment Response Procedure Tolerated Well -Debridement - Subq, 1st 20sq cm No -Apply Skin Sub - 1st 25 sq cm - Legs 1 -Epifix Mesh (per sq cm) 11 3. LLE lat cluster -Time 09:40 -Correct Patient Yes -Correct Side, Site, Position Yes -Correct Procedure Yes -Procedure Performed Yes -Type of Procedure Debridement -Clinical Debridement Subcutaneous -Tissue Removed Subcutaneous -Tunneling No -Undermining/Tunneling No -Circular Undermining No -Wound/Ulcer Outcome Not Healed -Ulcer Cleansing Rinsed/ Irrigated with Saline -Foul Odor after Cleansing No -Bioengineered Tissue No -Bleeding Controlled with Pressure -Treatment Response Procedure Tolerated Well -Debridement - Subq, 1st 20sq cm Yes Pain Scale: 0-10 Numeric Is Patient Pain Free? Yes WC - Nurse 3 - General Ulcer D/C NN Start: 02/26/24 09:13 Freq: Status: Active Protocol: Activity Type Activity Date Activity User E-sign Co-sign Detail Recorded Client Recorded Date Recorded By Document 02/26/24 09:58 DL [id number] 02/26/24 10:00 DL 02/26/24 09:58 Wound Care Center Nurse 3 #4- LLE ANTERIOR CLUSTER -Foul Odor after Cleansing No -Primary Dressing Applied Aquacel Extra -Primary Dressing Covered/Secured with Dry Gauze & Roll Gauze, Secured with Tape -Aquacel Extra 1 3. LLE lat cluster -Foul Odor after Cleansing No -Other Dressing AQUACEL EX -Primary Dressing Covered/Secured with Dry Gauze & Roll Gauze, Secured with Tape Left -Tubular Bandage Single Layer -Size of Tubigrip Used Size E -Size E ($) 1 Treatment Response Procedure Tolerated Well Pain Scale: 0-10 Numeric Is Patient Pain Free? Yes WC - Visit Discharge Discharge Condition Stable Ambulatory Status Ambulatory Transportation [facility] Facility Type Home Health Orders Sent Yes Additional Wound Wound debrided: Lateral left lower extremity Laterality: Left Wound Grade/Stage: Aguila stage I Type of Debridement: Selective debridement Anesthesia Used: 5% Lidocaine Gel Depth: Down to and including healthy tissue and in the subcutaneous layer Percentage of wound debrided: 100 Instrument Used: 5mm curette Tissue Removed: Fibrous, devitalized subcutaneous, biofilm, slough Severity: Fat Layer Exposed Amount of bleeding with debridement: Mild Bleeding Controlled with: Compression and gauze Patient tolerated procedure: Patient tolerated procedure well Assessment/Plan Assessment/Plan (1) Non-pressure chronic ulcer of left calf with fat layer exposed: CODE(S): L97.222 - Non-pressure chronic ulcer of left calf with fat layer exposed (2) Venous stasis dermatitis of left lower extremity: CODE(S): I87.2 - Venous insufficiency (chronic) (peripheral) (3) Leg edema: CODE(S): R60.0 - Localized edema PLAN: Plan Patient seen and evaluated Pre-debridement: Lateral LLE cluster: 0.7 cm x 0.7 cm x 0.1 cm; Anterior LLE cluster: 2.4 cm x 5.1 cm x 0.1 cm Ulceration was debrided as noted in the clinical panel above. Postdebridement measurement was Lateral LLE cluster: 0.8 cm x 0.8 cm x 0.1 cm; Anterior LLE cluster: 2.5 cm x 5.2 cm x 0.1 cm. No signs of infection. EpiFix #6 applied to anterior ulceration site and dressed with Adaptic touch, and Steri-Strips, Aquacel Ag and dry sterile dressing. Tubigrip compression applied to left lower extremity. She does continue to wear compression stocking to the right lower extremity. Lateral site underwent debridement and dressed with hydrogel and DSD. There is continued decrease in the ulcerations sizes versus previous visit. Continues healing well at this time. Edema has improved and maintained with compression. Continues Tubigrip compression She has been approved for EpiFix application, will continue applying. She is to continue to elevate lower extremities at all times of rest to aid in edema control Recommend continued use of compression stockings once ulcerations have healed. Compression recommended 20 to 30 mmHg. Recommended updating compression stockings to proper sizing as her previous stockings have rolled down her leg causing the ulceration. Discussed signs and symptoms of infection. Discussed if she notices increasing redness about the ulcer sites that moves up the leg or if red streaking is noted up the leg, purulent drainage from the wound sites, increasing foul odor from the wound, or if she experiences fever greater than 101 degree accompanied by nausea, vomiting, chills of these are signs of a progressing infection and she should report to the ED to receive IV antibiotics and further evaluation. She is understanding of this today. The following work up and care recommendations were made: Dressing: Epifix, Adaptic touch and steri-strips, [employer] Ag and dry sterile dressing to anterior. Lateral leg Hydrogel and DSD/SAP dressing for mild to moderate drainage. Compression stocking 20 to 30 mmHg to knee-high. Wash: Do not get wet Tissue growth optimization: EpiFix anterior, hydrogel lateral Offload: Compression stockings and elevation of the lower extremities. Vascular: Venous Doppler performed 12/09/2023 notes acute DVT left gastroc vein with chronic changes in the left popliteal vein. Edema: Continue elevation of lower extremities at all times of rest and continue compression stocking 20 to 30 mmHg. Infection: No signs of infection Imaging: Radiographs 12/09/2023 of the right foot demonstrates diffuse arthritis. No signs of infection. Pain: May take extra strength Tylenol for discomfort Host factors: Chronic venous stasis and lower extremity edema. I answered all the patient's questions. To return to the wound healing center in 1 week or call sooner if the patient has any questions or concerns.
[2024-03-11 09:06] VITALS: BP 119/64; PULSE 110; RESP 18; TEMP 36.8
--- NOTE | 2024-03-11 09:59 | PCM.WC.PN ---
History of Present Illness Date of Service: 03/11/24 Chief Complaint: Venous stasis ulceration, chronic venous insufficiency, varicose veins with inflammation and ulceration, venous hypertension with inflammation and ulceration, venous stasis dermatitis - Left lower extremity History of Wound: DAVID PATTON, is a 73 F who presents to [facility] on 12/09/2023 with complaint of generalized weakness and fatigue for at least 4 weeks duration. She was previously diagnosed with hemolytic anemia by Dr. Tay 10 years ago and her weakness feels the same. Examination in the ER demonstrates an anterior left lower extremity ulceration. Patient reports that she does wear compression stockings and unfortunately the left stocking did roll down her leg became stuck causing circumferential ulcerations. She denies going to the wound care center for treatment of the ulcerations, but has been seen there in the past for venous ulcerations by Dr. Burrows. She denied F/C/chills/SOB/fever. Also denies dysuria and hematuria and chest pain. Workup in the ED did demonstrate neutropenia 3.3, thrombocytopenia, and acute kidney injury BUN of 66. Following admission overnight hemoglobin did decrease from 13.3 down to 4.8 and she was transferred to the ICU with hematology follow up and did receive transfusion which did help. Podiatry was following during admission for left lower extremity ulceration and she did undergo selective debridement at that time. Following discharge she was referred to the wound care center for continued follow of her lower extremity ulcerations. Patient states that she is feeling better since leaving the hospital. She currently denies N/V/F/chills. Denies further complaints. Subjective Subjective This is a 73-year-old female who presents to the wound care center today for continued follow-up of a left lower extremity circumferential ulceration secondary to a compression stocking that had rolled down and got stuck. She continues to leave grafting product intact to the anterior lower extremity. Continues changing dressings overlying the lateral portion of the lower extremity daily. States the anterior site is healing well and getting smaller. Notes lateral side is nearing closure. Patient denies constitutional symptoms. Denies further complaints. Objective Data Objective Data Vital Signs: Vital Signs Temp Pulse Resp BP O2 Del Method 98.2 F 110 H 18 119/64 Room Air 03/11/24 09:06 03/11/24 09:06 03/11/24 09:06 03/11/24 09:06 03/04/24 09:13 Oxygen Delivery Method Room Air Physical Exam Const alert, oriented x3 and no apparent distress General Appearance: cooperative HEENT normocephalic Eyes General Eye: normal appearance of both eyes Neck General: normal visual inspection Lymph Lymphatic: no lymphadenopathy noted and no lymphedema noted Resp normal respiratory effort Cardio regular rate and regular rhythm Extremity Extremity Narrative: Vascular: DP and PT pulses palpable right lower extremity, DP weakly palpable left lower extremity, PT palpable left lower extremity. CFT less than 4 seconds to the digits. Normal temperature gradient. Hair growth is absent to digits bilateral. Neurologic: Epicritic sensation intact. No focal deficits noted. Musculoskeletal: Right lower extremity weakness secondary to polio. Left lower extremity muscle strength 5 of 5 age-appropriate. Dermatologic: Left lower extremity demonstrates chronic venous stasis with hemosiderin deposition rubor at the anterior aspect of the lower extremity. There are small circumferential pressure ulcerations secondary to compression stocking that had rolled down and got stuck. Ulcerations demonstrates superficial layers that are granular and healthy appearing. Ulcerations are improving with reduction in size. No signs of infection. Right lower extremity grossly normal. Skin no rashes or lesions noted, skin turgor normal and no jaundice General Skin Exam: venous stasis and dermatitis Neuro moves all extremities Debridement Note Debridement Note Wound debrided: Left lower extremity anterior Laterality: Left Wound Grade/Stage: Aguila stage I Type of Debridement: Excisional debridement Anesthesia Used: 5% Lidocaine Gel Depth: Down to and including healthy tissue and in the subcutaneous layer Percentage of wound debrided: 100 Instrument Used: 5mm curette Tissue Removed: Fibrous, devitalized subcutaneous, biofilm, slough Severity: Fat Layer Exposed Amount of bleeding with debridement: Mild Bleeding Controlled with: Compression and gauze Patient tolerated procedure: Patient tolerated procedure well Post-Debridement Measurements and Additional Note: Post-Debridement Measurements/Treatment CRYSTAL - Nurse 1 - General Ulcer Assessment Start: 02/26/24 09:13 Freq: Status: Active Protocol: LOCO Activity Type Activity Date Activity User E-sign Co-sign Detail Recorded Client Recorded Date Recorded By Document 02/26/24 09:13 KW [id number] 02/26/24 09:25 KW Document 03/04/24 09:13 MT [id number] 03/04/24 09:21 MT Document 03/11/24 09:06 DL [id number] 03/11/24 09:16 DL 02/26/24 03/04/24 03/11/24 09:13 09:13 09:06 WC - Today's Visit Information Type of service Follow-up Visit Follow-up Visit Follow-up Visit (Physician/GLOVE BRUSHER (Physician/GLOVE BRUSHER (Physician/GLOVE BRUSHER ) ) ) Arrival Mode Ambulatory Ambulatory Ambulatory Transfer Assistance None Accompanied by self Patient Identification Verified (Name & Yes Yes Yes ) Patient Requires Transmission-Based No Precautions Safety Precautions Fall Prevention Vital Signs Temperature (97.8 F-99.1 F) 98.3 F 97 F L 98.2 F Temperature Source Temporal Temporal Temporal Pulse Rate (60-100) 112 H 108 H 110 H Pulse Location Monitor Monitor Monitor Respiratory Rate (12-18) 18 20 H 18 Respiratory rate source Observation Observation Observation Oxygen Delivery Method Room Air Room Air Blood Pressure (90/60-120/80) 108/60 123/57 H 119/64 Blood Pressure Mean (mm Hg) 76 79 82 Source Monitor Monitor Monitor Position Semi-Fowlers Sitting Blood Pressure Location Left Arm Left Arm History Since Last Visit- (Skip if this is Patient's initial visit) Have you changed medications since your No No last visit? Any new allergies or adverse reactions No No Had a fall/change in ADL's that may No No increase risk of falls Signs or symptoms of abuse and/or No No neglect since last visit Have you been in the hospital since your No No last visit? Has dressing in place as prescribed Yes Yes Yes Has compression in place as prescribed Yes Yes Yes Has offloadiing in place as prescribed N/A Yes N/A Experienced any changes in pain level or No Yes No management Left Footwear Regular Shoe Regular Shoe Right Footwear Regular Shoe Regular Shoe Pain Scale: 0-10 Numeric Is Patient Pain Free? Yes Yes Yes - Nurse 1 - General Ulcer Measurement Start: 02/26/24 09:13 Freq: Status: Active Protocol: Activity Type Activity Date Activity User E-sign Co-sign Detail Recorded Client Recorded Date Recorded By Document 02/26/24 09:13 KW [id number] 02/26/24 09:25 KW Document 03/04/24 09:13 MT [id number] 03/04/24 09:21 MT Document 03/11/24 09:06 DL [id number] 03/11/24 09:16 DL 02/26/24 03/04/2403/11/24 09:13 09:13 09:06 Wound Center Nurse 1 #4- LLE ANTERIOR CLUSTER -Current Size (cm) - Length 10 2.5 9.2 -Current Size (cm) - Width 3 6.2 2.5 -Current Size (cm) - Depth 0.3 0.1 0.1 -Total Square Cm 30 15.50 23.00 -Epithelialization Medium 34-66% -Exudate Amt Medium Medium Medium -Exudate Type Serosanguineous Serosanguineous Serosanguineous -Wound Margin Distinct, Thickened & Distinct, Outline Rolled Under Outline Attached Attached -Granulation Amt Medium (34-66%) Small (1-33%) Large (67-100%) -Granulation Quality Pale,[place] Red -Slough/Fibrin Yes -Necrosis Amt Medium (34-66%) Large (67-100%) Small (1-33%) -Necrotic Tissue Type Adherent Slough Adherent Slough Adherent Slough -Structure Exposed N/A -Texture (Lety-wound Skin Appearance) Assessed Assessed Excoriation, Localized Edema ,Scarring -Moisture (Lety-wound Skin Appearance) Assessed Assessed Dry/Scaly -Color (Lety-wound Skin Appearance) Assessed Assessed No Abnormality -Temperature (Lety-wound Skin No Abnormality No Abnormality No Abnormality Appearance) (Pt Warm) (Pt Warm) (Pt Warm) -Tenderness on Palpation (Lety-wound No No Skin Appearance) -Ulcer Cleansing Soap and Water Soap and Water Soap and Water -Foul Odor after Cleansing No No No -Anesthetic Used 5% Lidocaine 5% Lidocaine 5% Lidocaine Gel Gel Gel 3. LLE lat cluster -Current Size (cm) - Length 1.2 1 1 -Current Size (cm) - Width 2.5 1 1 -Current Size (cm) - Depth 0.2 0.2 0.1 -Total Square Cm 3.00 1 1 -Tunneling No -Undermining/Tunneling No -Circular Undermining No -Exudate Amt Medium Medium Medium -Exudate Type Serosanguineous Serosanguineous Serosanguineous -Wound Margin Distinct, Thickened & Distinct, Outline Rolled Under Outline Attached Attached -Granulation Amt Medium (34-66%) Small (1-33%) Large (67-100%) -Granulation Quality Pale,Henrietta Henri[place],Red -Slough/Fibrin Yes -Necrosis Amt Medium (34-66%) Large (67-100%) None Present (0 %) -Necrotic Tissue Type Adherent Slough -Structure Exposed N/A -Texture (Lety-wound Skin Appearance) Assessed Assessed Localized Edema -Moisture (Lety-wound Skin Appearance) Assessed Assessed Dry/Scaly -Color (Lety-wound Skin Appearance) Assessed Assessed No Abnormality -Temperature (Lety-wound Skin No Abnormality No Abnormality No Abnormality Appearance) (Pt Warm) (Pt Warm) (Pt Warm) -Tenderness on Palpation (Lety-wound No No Skin Appearance) -Ulcer Cleansing Soap and Water Soap and Water Soap and Water -Foul Odor after Cleansing No No -Anesthetic Used 5% Lidocaine 5% Lidocaine 5% Lidocaine Gel Gel Gel Left Calf (cm) 44.5 42.8 Left Ankle (cm) 27.5 27 WC - Nurse 2 - General Ulcer CM Notes Start: 02/26/24 09:13 Freq: Status: Active Protocol: Activity Type Activity Date Activity User E-sign Co-sign Detail Recorded Client Recorded Date Recorded By Document 02/26/24 09:39 [facility] [id number] 02/26/24 09:45 [facility] Document 03/04/24 10:03 [facility] [id number] 03/04/24 10:15 [facility] Document 03/11/24 09:27 [facility] [id number] 03/11/24 09:34 [facility] 02/26/24 03/04/24 03/11/24 09:39 10:03 09:27 Wound Center Nurse 2 #4- LLE ANTERIOR CLUSTER -Time 09:39 10:04 09:27 -Correct Patient Yes Yes Yes -Correct Side, Site, Position Yes Yes Yes -Correct Procedure Yes Yes Yes -Procedure Performed Yes Yes Yes -Type of Procedure Debridement Debridement Debridement -Clinical Debridement Subcutaneous Subcutaneous Subcutaneous -Tissue Removed Subcutaneous Subcutaneous Subcutaneous -Post Debridement (cm) - Length 1.4 2.5 2.5 -Post Debridement (cm) - Width 9 5.2 3.1 -Post Debridement (cm) - Depth 0.1 0.1 0.1 -Total Square (Post) (cm) 12.6 13.00 7.75 -Area of Debridement (cm) - Length 1.4 2.5 2.5 -Area of Debridement (cm) - Width 9 5.2 3.1 -Total Square (Area) (cm) 12.6 13.00 7.75 -Tunneling No No No -Undermining/Tunneling No No No -Circular Undermining No No No -Wound/Ulcer Outcome Not Healed Not Healed Not Healed -Ulcer Cleansing Rinsed/ Rinsed/ Rinsed/ Irrigated with Irrigated with Irrigated with Saline Saline Saline -Foul Odor after Cleansing No No No -Bioengineered Tissue No No No -Type of Bioengineered Tissue Epifix Mesh Epifix Mesh -Expiration Date 08/19/28 08/19/28 08/19/28 -Product Lot Number [id number] -Percent Used 100 100 100 -Lot number of Saline Used [id number] -Bleeding Controlled with Pressure Pressure Pressure -Treatment Response Procedure Procedure Procedure Tolerated Well Tolerated Well Tolerated Well -Debridement - Subq, 1st 20sq cm No No No -Apply Skin Sub - 1st 25 sq cm - Legs 1 1 1 -Epifix Mesh (per sq cm) 11 11 11 3. LLE lat cluster -Time 09:40 10:10 09:28 -Correct Patient Yes Yes Yes -Correct Side, Site, Position Yes Yes Yes -Correct Procedure Yes Yes Yes -Procedure Performed Yes Yes Yes -Type of Procedure Debridement Debridement Debridement -Clinical Debridement Subcutaneous Subcutaneous Subcutaneous -Tissue Removed Subcutaneous Subcutaneous Subcutaneous -Post Debridement (cm) - Length 0.8 0.7 -Post Debridement (cm) - Width 0.8 0.7 -Post Debridement (cm) - Depth 0.1 0.1 -Total Square (Post) (cm) 0.64 0.49 -Area of Debridement (cm) - Length 0.8 0.7 -Area of Debridement (cm) - Width 0.8 0.7 -Total Square (Area) (cm) 0.64 0.49 -Tunneling No No No -Undermining/Tunneling No No No -Circular Undermining No No No -Wound/Ulcer Outcome Not Healed Not Healed Not Healed -Ulcer Cleansing Rinsed/ Rinsed/ Rinsed/ Irrigated with Irrigated with Irrigated with Saline Saline Saline -Foul Odor after Cleansing No No No -Bioengineered Tissue No No -Bleeding Controlled with Pressure Pressure Pressure -Treatment Response Procedure Procedure Procedure Tolerated Well Tolerated Well Tolerated Well -Debridement - Subq, 1st 20sq cm Yes Yes Yes Pain Scale: 0-10 Numeric Is Patient Pain Free? Yes Yes Yes - Nurse 3 - General Ulcer D/C NN Start: 02/26/24 09:13 Freq: Status: Active Protocol: Activity Type Activity Date Activity User E-sign Co-sign Detail Recorded Client Recorded Date Recorded By Document 02/26/24 09:58 DL [id number] 02/26/24 10:00 DL Document 03/04/24 10:33 RB [id number] 03/04/24 10:34 RB 02/26/24 03/04/24 09:58 10:33 Wound Care Center Nurse 3 #4- LLE ANTERIOR CLUSTER -Foul Odor after Cleansing No -Primary Dressing Applied Aquacel Extra Aquacel Extra -Primary Dressing Covered/Secured with Dry Gauze & Dry Gauze & Roll Gauze, Roll Gauze, Secured with Secured with Tape Tape -Aquacel Extra 1 1 3. LLE lat cluster -Foul Odor after Cleansing No -Other Dressing AQUACEL EX aquacel extra -Primary Dressing Covered/Secured with Dry Gauze & Dry Gauze & Roll Gauze, Roll Gauze, Secured with Secured with Tape Tape Left -Tubular Bandage Single Layer -Size of Tubigrip Used Size E -Size E ($) 1 johny -Tubular Bandage Single Layer -Size of Tubigrip Used Size E -Size E ($) 2 Treatment Response Procedure Procedure Tolerated Well Tolerated Well Pain Scale: 0-10 Numeric Is Patient Pain Free? Yes Yes - Visit Discharge Discharge Condition Stable Stable Ambulatory Status Ambulatory Ambulatory Transportation Private Auto Private Auto Medication Reconcilliation completed & No provided to patient/care provider Clinical Summary of Care Provided Yes Facility Type Home Health Orders Sent Yes Additional Wound Wound debrided: Left lower extremity lateral Laterality: Left Wound Grade/Stage: Aguila stage I Type of Debridement: Excisional debridement Anesthesia Used: 5% Lidocaine Gel Depth: Down to and including healthy tissue and in the subcutaneous layer Percentage of wound debrided: 100 Instrument Used: 5mm curette Tissue Removed: Fibrous, devitalized subcutaneous, biofilm, slough Severity: Fat Layer Exposed Amount of bleeding with debridement: Mild Bleeding Controlled with: Compression and gauze Patient tolerated procedure: Patient tolerated procedure well Assessment/Plan Assessment/Plan (1) Non-pressure chronic ulcer of left calf with fat layer exposed: CODE(S): L97.222 - Non-pressure chronic ulcer of left calf with fat layer exposed (2) Venous stasis dermatitis of left lower extremity: CODE(S): I87.2 - Venous insufficiency (chronic) (peripheral) (3) Leg edema: CODE(S): R60.0 - Localized edema PLAN: Plan Patient seen and evaluated Pre-debridement: Lateral LLE cluster: 0.6 cm x 0.6 cm x 0.1 cm; Anterior LLE cluster: 2.4 cm x 3.0 cm x 0.1 cm Ulceration was debrided as noted in the clinical panel above. Postdebridement measurement was Lateral LLE cluster: 0.7 cm x 0.7 cm x 0.1 cm; Anterior LLE cluster: 2.5 cm x 3.1 cm x 0.1 cm. No signs of infection. EpiFix #7 applied to anterior ulceration site and dressed with Adaptic touch, and Steri-Strips, Aquacel Ag and dry sterile dressing. Tubigrip compression applied to left lower extremity. She does continue to wear compression stocking to the right lower extremity. Lateral site underwent debridement and dressed with hydrogel and DSD. There is continued reduction in the ulcerations sizes versus previous visit. Continues healing well at this time. Edema controlled and maintained with compression. Continues Tubigrip compression She has been approved for EpiFix application, will continue applying. She is to continue to elevate lower extremities at all times of rest to aid in edema control Recommend continued use of compression stockings once ulcerations have healed. Compression recommended 20 to 30 mmHg. Recommended updating compression stockings to proper sizing as her previous stockings have rolled down her leg causing the ulceration. Discussed signs and symptoms of infection. Discussed if she notices increasing redness about the ulcer sites that moves up the leg or if red streaking is noted up the leg, purulent drainage from the wound sites, increasing foul odor from the wound, or if she experiences fever greater than 101 degree accompanied by nausea, vomiting, chills of these are signs of a progressing infection and she should report to the ED to receive IV antibiotics and further evaluation. She is understanding of this today. The following work up and care recommendations were made: Dressing: Epifix, Adaptic touch and steri-strips, Aquacel Ag and dry sterile dressing to anterior. Lateral leg Hydrogel and DSD/SAP dressing for mild to moderate drainage. Compression stocking 20 to 30 mmHg to knee-high. Wash: Do not get wet Tissue growth optimization: EpiFix anterior, hydrogel lateral Offload: Compression stockings and elevation of the lower extremities. Vascular: Venous Doppler performed 12/09/2023 notes acute DVT left gastroc vein with chronic changes in the left popliteal vein. Edema: Continue elevation of lower extremities at all times of rest and continue compression stocking 20 to 30 mmHg. Infection: No signs of infection Imaging: Radiographs 12/09/2023 of the right foot demonstrates diffuse arthritis. No signs of infection. Pain: May take extra strength Tylenol for discomfort Host factors: Chronic venous stasis and lower extremity edema. I answered all the patient's questions. To return to the wound healing center in 2 weeks or call sooner if the patient has any questions or concerns.
== END 2024-03-20 23:59 | disposition home or self-care (01) ==
LOC: WC 09:00
PROVIDERS: PCP Internal Medicine; Referring Provider Student in an Organized Health Care Education/Training Program; Visit Provider Student in an Organized Health Care Education/Training Program
DX: I87.332 Chronic venous hypertension (idiopathic) with ulcer and inflammation of left lower extremity (principal); L97.222 Non-pressure chronic ulcer of left calf with fat layer exposed; R60.0 Localized edema; I87.2 Venous insufficiency (chronic) (peripheral)
CPT/HCPCS: 11042; 15271; Q4186

== ENCOUNTER 2024-04-08 09:00 | Outpatient (RCR) | payer MEDICARE, SELFPAY ==
[2024-03-21 00:28] VITALS: BP 134/63; PULSE 88; RESP 18; TEMP 36.6
[2024-03-25 09:07] VITALS: BP 148/79; PULSE 112; RESP 16; TEMP 35.3
--- NOTE | 2024-03-25 17:10 | PN.PCM_ITS ---
History of Present Illness Date of Service: 03/25/24 Chief Complaint: Venous stasis ulceration, chronic venous insufficiency, v aricose veins with inflammation and ulceration, venous hypertension with inflammation and ulceration, venous stasis dermatitis - Left lower extremity History of Wound: DAVID PATTON, is a 73 F who presents to [facility] on 12/09/2023 with complaint of generalized weakness and fatigue for at least 4 weeks duration. She was previously diagnosed with hemolytic anemia by Dr. Tay 10 years ago and her weakness feels the same. Examination in the ER demonstrates an anterior left lower extremity ulceration. Patient reports that she does wear compression stockings and unfortunately the left stocking did roll down her leg became stuck causing circumferential ulcerations. She denies going to the wound care center for treatment of the ulcerations, but has been seen there in the past for venous ulcerations by Dr. Burrows. She denied F/C/chills/SOB/fever. Also denies dysuria and hematuria and chest pain. Workup in the ED did demonstrate neutropenia 3.3, thrombocytopenia, and acute kidney injury BUN of 66. Following admission overnight hemoglobin did decrease from 13.3 down to 4.8 and she was transferred to the ICU with hematology follow up and did receive transfusion which did help. Podiatry was following during admission for left lower extremity ulceration and she did undergo selective debridement at that time. Following discharge she was referred to the wound care center for continued follow of her lower extremity ulcerations. Patient states that she is feeling better since leaving the hospital. She currently denies N/V/F/chills. Denies further complaints. Subjective Subjective This is a 73-year-old female who presents to the wound care center today for continued follow-up of a left lower extremity circumferential ulceration secondary to a compression stocking that had rolled down and got stuck. She continues to leave grafting product intact to the anterior lower extremity. Continues changing dressings overlying the lateral portion of the lower extremity daily. She is pleased to see ulcerations getting smaller. She denies constitutional symptoms. Denies further complaints. Objective Data Objective Data Vital Signs: Vital Signs Temp Pulse Resp BP 95.6 F L 112 H 16 148/79 H 03/25/24 09:07 03/25/24 09:07 03/25/24 09:07 03/25/24 09:07 Physical Exam Const alert, oriented x3 and no apparent distress General Appearance: cooperative HEENT normocephalic Eyes General Eye: normal appearance of both eyes Neck General: normal visual inspection Lymph Lymphatic: no lymphadenopathy noted and no lymphedema noted Resp normal respiratory effort Cardio regular rate and regular rhythm Extremity Extremity Narrative: Vascular: DP and PT pulses palpable right lower extremity, DP weakly palpable left lower extremity, PT palpable left lower extremity. CFT less than 4 seconds to the digits. Normal temperature gradient. Hair growth is absent to digits bilateral. Neurologic: Epicritic sensation intact. No focal deficits noted. Musculoskeletal: Right lower extremity weakness secondary to polio. Left lower extremity muscle strength 5 of 5 age-appropriate. Dermatologic: Left lower extremity demonstrates chronic venous stasis with hemosiderin deposition rubor at the anterior aspect of the lower extremity. There are small circumferential pressure ulcerations secondary to compression stocking that had rolled down and got stuck. Ulcerations demonstrates super ficial layers that are granular and healthy appearing. Ulcerations are improving with reduction in size. There are some areas of healing also noted. No signs of infection. Right lower extremity grossly normal. Skin no rashes or lesions noted and skin turgor normal Neuro moves all extremities Debridement Note Debridement Note Wound debrided: Left anterior lower extremity Laterality: Left Wound Grade/Stage: Aguila stage I Type of Debridement: Excisional debridement Anesthesia Used: 5% Lidocaine Gel Depth: Down to and including healthy tissue and in the subcutaneous layer Percentage of wound debrided: 100 Instrument Used: 5mm curette Tissue Removed: Fibrous, devitalized subcutaneous, biofilm, slough Severity: Fat Layer Exposed Amount of bleeding with debridement: Mild Bleeding Controlled with: Compression and gauze Patient tolerated procedure: Patient tolerated procedure well Post-Debridement Measurements and Additional Note: Post-Debridement Measurements/Treatment - Nurse 1 - General Ulcer Assessment Start: 03/25/24 09:07 Freq: Status: Active Protocol: LOCO Activity Type Activity Date Activity User E-sign Co-sign Detail Recorded Client Recorded Date Recorded By Document 03/25/24 09:07 JON [id number] 03/25/24 09:15 JON 03/25/24 09:07 - Today's Visit Information Type of service Follow-up Visit (Physician/CAMERA OPERATOR ) Arrival Mode Ambulatory Patient Identification Verified (Name & Yes ) Patient Requires Transmission-Based No Precautions Vital Signs Temperature (97.8 F-99.1 F) 95.6 F L Temperature Source Temporal Pulse Rate (60-100) 112 H Pulse Location Monitor Respiratory Rate (12-18) 16 Respiratory rate source Observation Blood Pressure (90/60-120/80) 148/79 H Blood Pressure Mean (mm Hg) 102 Source Monitor Position Semi-Fowlers Blood Pressure Location Left Arm History Since Last Visit- (Skip if this is Patient's initial visit) Have you changed medications since your No last visit? Any new allergies or adverse reactions No Had a fall/change in ADL's that may No increase risk of falls Signs or symptoms of abuse and/or No neglect since last visit Have you been in the hospital since your No last visit? Has dressing in place as prescribed Yes Has compression in place as prescribed Yes Has offloadiing in place as prescribed N/A Experienced any changes in pain level or No management Left Footwear Regular Shoe Right Footwear Regular Shoe Pain Scale: 0-10 Numeric Is Patient Pain Free? Yes WC - Nurse 1 - General Ulcer Measurement Start: 03/25/24 09:07 Freq: Status: Active Protocol: Activity Type Activity Date Activity User E-sign Co-sign Detail Recorded Client Recorded Date Recorded By Document 03/25/24 09:07 JON [id number] 03/25/24 09:15 JON 03/25/24 09:07 Wound Center Nurse 1 #4- LLE ANTERIOR CLUSTER -Combined with other wound No -Current Size (cm) - Length 2.2 -Current Size (cm) - Width 2.8 -Current Size (cm) - Depth 0.1 -Total Square Cm 6.16 -Photo Taken Yes -Epithelialization Medium 34-66% -Tunneling No -Undermining/Tunneling No -Circular Undermining No -Exudate Amt Medium -Exudate Type Serosanguineous -Wound Margin Flat & Intact -Granulation Amt Large (67-100%) -Granulation Quality [place] -Slough/Fibrin Yes -Necrosis Amt Small (1-33%) -Necrotic Tissue Type Adherent Slough -Structure Exposed N/A -Texture (Lety-wound Skin Appearance) Assessed, Localized Edema -Moisture (Lety-wound Skin Appearance) Assessed,Dry/ Scaly -Color (Lety-wound Skin Appearance) Assessed -Temperature (Lety-wound Skin No Abnormality Appearance) (Pt Warm) -Ulcer Cleansing Soap and Water -Foul Odor after Cleansing No -Anesthetic Used 5% Lidocaine Gel 3. LLE lat cluster -Combined with other wound No -Current Size (cm) - Length 0.1 -Current Size (cm) - Width 0.1 -Current Size (cm) - Depth 0.1 -Total Square Cm 0.01 -Photo Taken Yes -Epithelialization Large 67-100% -Tunneling No -Undermining/Tunneling No -Circular Undermining No -Exudate Amt Small -Exudate Type Serosanguineous -Wound Margin Flat & Intact -Granulation Amt Large (67-100%) -Granulation Quality [place] -Slough/Fibrin Yes -Necrosis Amt Small (1-33%) -Necrotic Tissue Type Adherent Slough -Structure Exposed N/A -Texture (Lety-wound Skin Appearance) Assessed, Excoriation, Localized Edema -Moisture (Lety-wound Skin Appearance) Assessed,Dry/ Scaly -Color (Lety-wound Skin Appearance) Assessed -Temperature (Lety-wound Skin No Abnormality Appearance) (Pt Warm) -Tenderness on Palpation (Lety-wound No Skin Appearance) -Ulcer Cleansing Soap and Water -Foul Odor after Cleansing No -Anesthetic Used 5% Lidocaine Gel Lower Limb Edema Present Yes Left Calf (cm) 41.5 Left Ankle (cm) 28.6 WC - Nurse 2 - General Ulcer CM Notes Start: 03/25/24 09:07 Freq: Status: Active Protocol: Activity Type Activity Date Activity User E-sign Co-sign Detail Recorded Client Recorded Date Recorded By Document 03/25/24 09:33 [facility] [id number] 03/25/24 09:50 [facility] 03/25/24 09:33 Wound Center Nurse 2 #4- LLE ANTERIOR CLUSTER -Time 09:33 -Correct Patient Yes -Correct Side, Site, Position Yes -Correct Procedure Yes -Procedure Performed Yes -Type of Procedure Debridement -Clinical Debridement Subcutaneous -Tissue Removed Subcutaneous -Post Debridement (cm) - Length 2.2 -Post Debridement (cm) - Width 2.7 -Post Debridement (cm) - Depth 0.1 -Total Square (Post) (cm) 5.94 -Area of Debridement (cm) - Length 2.2 -Area of Debridement (cm) - Width 2.7 -Total Square (Area) (cm) 5.94 -Tunneling No -Undermining/Tunneling No -Circular Undermining No -Wound/Ulcer Outcome Not Healed -Ulcer Cleansing Rinsed/ Irrigated with Saline -Foul Odor after Cleansing No -Bioengineered Tissue No -Type of Bioengineered Tissue Epifix Mesh -Expiration Date 08/19/28 -Product Lot Number [id number] -Percent Used 100 -Lot number of Saline Used 01/18/2027 -Bleeding Controlled with Pressure -Treatment Response Procedure Tolerated Well -Debridement - Subq, 1st 20sq cm No -Apply Skin Sub - 1st 25 sq cm - Legs 1 -Epifix Mesh (per sq cm) 11 3. LLE lat cluster -Time 09:34 -Correct Patient Yes -Correct Side, Site, Position Yes -Correct Procedure Yes -Procedure Performed Yes -Type of Procedure Debridement -Clinical Debridement Subcutaneous -Tissue Removed Subcutaneous -Post Debridement (cm) - Length 0.4 -Post Debridement (cm) - Width 0.4 -Post Debridement (cm) - Depth 0.1 -Total Square (Post) (cm) 0.16 -Area of Debridement (cm) - Length 0.4 -Area of Debridement (cm) - Width 0.4 -Total Square (Area) (cm) 0.16 -Tunneling No -Undermining/Tunneling No -Circular Undermining No -Wound/Ulcer Outcome Not Healed -Ulcer Cleansing Rinsed/ Irrigated with Saline -Foul Odor after Cleansing No -Bioengineered Tissue No -Bleeding Controlled with Pressure -Treatment Response Procedure Tolerated Well -Debridement - Subq, 1st 20sq cm Yes Pain Scale: 0-10 Numeric Is Patient Pain Free? Yes WC - Nurse 3 - General Ulcer D/C NN Start: 03/25/24 09:07 Freq: Status: Active Protocol: Activity Type Activity Date Activity User E-sign Co-sign Detail Recorded Client Recorded Date Recorded By Document 03/25/24 10:04 ML [id number] 03/25/24 10:06 ML 03/25/24 10:04 Wound Care Center Nurse 3 #4- LLE ANTERIOR CLUSTER -Primary Dressing Applied Aquacel Extra -Other Dressing abd -Primary Dressing Covered/Secured with Dry Gauze & Roll Gauze, Secured with Tape -Aquacel Extra 1 johny -Tubular Bandage Single Layer -Size of Tubigrip Used Size E -Size E ($) 1 Pain Scale: 0-10 Numeric Is Patient Pain Free? Yes Additional Wound Wound debrided: Left lower extremity lateral Laterality: Left Wound Grade/Stage: Aguila stage I Type of Debridement: Excisional debridement Anesthesia Used: 5% Lidocaine Gel Depth: Down to and including healthy tissue and in the subcutaneous layer Percentage of wound debrided: 100 Instrument Used: 5mm curette Tissue Removed: Fibrous, devitalized subcutaneous, biofilm, slough Severity: Fat Layer Exposed Amount of bleeding with debridement: Mild Bleeding Controlled with: Compression and gauze Patient tolerated procedure: Patient tolerated procedure well Assessment/Plan Assessment/Plan (1) Non-pressure chronic ulcer of left calf with fat layer exposed: CODE(S): L97.222 - Non-pressure chronic ulcer of left calf with fat layer exposed (2) Venous stasis dermatitis of left lower extremity: CODE(S): I87.2 - Venous insufficiency (chronic) (peripheral) (3) Leg edema: CODE(S): R60.0 - Localized edema PLAN: Plan Patient seen and evaluated Pre-debridement: Lateral LLE cluster: 0.3 cm x 0.3 cm x 0.1 cm; Anterior LLE cluster: 2.1 cm x 2.6 cm x 0.1 cm Ulceration was debrided as noted in the clinical panel above. Postdebridement measurement was Lateral LLE cluster: 0.4 cm x 0.4 cm x 0.1 cm; Anterior LLE cluster: 2.2 cm x 2.7 cm x 0.1 cm. No signs of infection. EpiFix #8 applied to anterior ulceration site and dressed with Adaptic touch, and Steri-Strips, Aquacel Ag and dry sterile dressing. Tubigrip compression applied to left lower extremity. She does continue to wear compression stocking to the right lower extremity. Lateral site underwent debridement and dressed with hydrogel and DSD. There is continued reduction in the ulcerations sizes versus previous visit. Continues healing well at this time. Edema controlled and maintained with compression. Continues Tubigrip compression She has been approved for EpiFix application, will continue applying. She is to continue to elevate lower extremities at all times of rest to aid in edema control Recommend continued use of compression stockings once ulcerations have healed. Compression recommended 20 to 30 mmHg. Recommended updating compression stockings to proper sizing as her previous stockings have rolled down her leg causing the ulceration. Discussed signs and symptoms of infection. Discussed if she notices increasing redness about the ulcer sites that moves up the leg or if red streaking is noted up the leg, purulent drainage from the wound sites, increasing foul odor from the wound, or if she experiences fever greater than 101 degree accompanied by nausea, vomiting, chills of these are signs of a progressing infection and she should report to the ED to receive IV antibiotics and further evaluation. She is understanding of this today. The following work up and care recommendations were made: Dressing: Epifix, Adaptic touch and steri-strips, Aquacel Ag and dry sterile dressing to anterior. Lateral leg Hydrogel and DSD/SAP dressing for mild to moderate drainage. Compression stocking 20 to 30 mmHg to knee-high. Wash: Do not get wet Tissue growth optimization: EpiFix anterior, hydrogel lateral Offload: Compression stockings and elevation of the lower extremities. Vascular: Venous Doppler performed 12/09/2023 notes acute DVT left gastroc vein with chronic changes in the left popliteal vein. Edema: Continue elevation of lower extremities at all times of rest and continue compression stocking 20 to 30 mmHg. Infection: No signs of infection Imaging: Radiographs 12/09/2023 of the right foot demonstrates diffuse arthritis. No signs of infection. Pain: May take extra strength Tylenol for discomfort Host factors: Chronic venous stasis and lower extremity edema. I answered all the patient's questions. To return to the wound healing center in 1 week or call sooner if the patient has any questions or concerns.
--- NOTE | 2024-03-26 12:33 | WC ---
PHOTO 03/25/24 LEFT ANT ROOT
--- NOTE | 2024-03-26 12:35 | WC ---
PHOTO 03/25/24 LEFT LATERAL LEG
--- NOTE | 2024-04-08 09:12 | PCM.WC.PN ---
History of Present Illness Date of Service: 04/08/24 Chief Complaint: Venous stasis ulceration, chronic venous insufficiency, varicose veins with inflammation and ulceration, venous hypertension with inflammation and ulceration, venous stasis dermatitis - Left lower extremity History of Wound: DAVID PATTON, is a 73 F who presents to [facility] on 12/09/2023 with complaint of generalized weakness and fatigue for at least 4 weeks duration. She was previously diagnosed with hemolytic anemia by Dr. Tay 10 years ago and her weakness feels the same. Examination in the ER demonstrates an anterior left lower extremity ulceration. Patient reports that she does wear compression stockings and unfortunately the left stocking did roll down her leg became stuck causing circumferential ulcerations. She denies going to the wound care center for treatment of the ulcerations, but has been seen there in the past for venous ulcerations by Dr. Burrows. She denied F/C/chills/SOB/fever. Also denies dysuria and hematuria and chest pain. Workup in the ED did demonstrate neutropenia 3.3, thrombocytopenia, and acute kidney injury BUN of 66. Following admission overnight hemoglobin did decrease from 13.3 down to 4.8 and she was transferred to the ICU with hematology follow up and did receive transfusion which did help. Podiatry was following during admission for left lower extremity ulceration and she did undergo selective debridement at that time. Following discharge she was referred to the wound care center for continued follow of her lower extremity ulcerations. Patient states that she is feeling better since leaving the hospital. She currently denies N/V/F/chills. Denies further complaints. Subjective Subjective This is a 73-year-old female who presents to the wound care center today for continued follow-up of a left lower extremity circumferential ulceration secondary to a compression stocking that had rolled down and got stuck. She continues to leave grafting product intact to the anterior lower extremity. Continues changing dressings overlying the lateral portion of the lower extremity daily. She reports ulcerations getting smaller with lateral side healed. She denies constitutional symptoms. Denies further complaints. Objective Data Objective Data Vital Signs: Vital Signs Temp Pulse Resp BP 95.6 F L 112 H 16 148/79 H 03/25/24 09:07 03/25/24 09:07 03/25/24 09:07 03/25/24 09:07 Physical Exam Const alert, oriented x3 and no apparent distress General Appearance: cooperative HEENT normocephalic Eyes General Eye: normal appearance of both eyes Neck General: normal visual inspection Lymph Lymphatic: no lymphadenopathy noted and no lymphedema noted Resp normal respiratory effort Cardio regular rate and regular rhythm Extremity Extremity Narrative: Vascular: DP and PT pulses palpable right lower extremity, DP weakly palpable left lower extremity, PT palpable left lower extremity. CFT less than 4 seconds to the digits. Normal temperature gradient. Hair growth is absent to digits bilateral. Neurologic: Epicritic sensation intact. No focal deficits noted. Musculoskeletal: Right lower extremity weakness secondary to polio. Left lower extremity muscle strength 5 of 5 age-appropriate. Dermatologic: Left lower extremity demonstrates chronic venous stasis with hemosiderin deposition rubor at the anterior aspect of the lower extremity. There are small circumferential pressure ulcerations secondary to compression stocking that had rolled down and got stuck. Ulcerations demonstrates superficial layers that are granular and healthy appearing. Ulcerations are improving with reduction in size. There are some areas of healing anteriorly noted and lateral aspect healed. No signs of infection. Right lower extremity grossly normal. Skin no rashes or lesions noted and skin turgor normal Neuro moves all extremities Debridement Note Debridement Note Wound debrided: Anterior left lower extremity Laterality: Left Wound Grade/Stage: [place] stage I Type of Debridement: Excisional debridement Anesthesia Used: 5% Lidocaine Gel Depth: Down to and including healthy tissue and in the subcutaneous layer Percentage of wound debrided: 100 Instrument Used: 5mm curette Tissue Removed: Fibrous, devitalized subcutaneous, biofilm, slough Severity: Fat Layer Exposed Amount of bleeding with debridement: Mild Bleeding Controlled with: Compression and gauze Patient tolerated procedure: Patient tolerated procedure well Post-Debridement Measurements and Additional Note: Post-Debridement Measurements/Treatment - Nurse 1 - General Ulcer Assessment Start: 03/25/24 09:07 Freq: Status: Active Protocol: LOCO Activity Type Activity Date Activity User E-sign Co-sign Detail Recorded Client Recorded Date Recorded By Document 03/25/24 09:07 JON [id number] 03/25/24 09:15 JON 03/25/24 09:07 - Today's Visit Information Type of service 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 Any new allergies or adverse reactions No Had a fall/change in ADL's that may No increase risk of falls Signs or symptoms of abuse and/or No neglect since last visit Have you been in the hospital since your No last visit? Has dressing in place as prescribed Yes Has compression in place as prescribed Yes Has offloadiing in place as prescribed N/A Experienced any changes in pain level or No management Left Footwear Regular Shoe Right Footwear Regular Shoe Pain Scale: 0-10 Numeric Is Patient Pain Free? Yes WC - Nurse 1 - General Ulcer Measurement Start: 03/25/24 09:07 Freq: Status: Active Protocol: Activity Type Activity Date Activity User E-sign Co-sign Detail Recorded Client Recorded Date Recorded By Document 03/25/24 09:07 JON [id number] 03/25/24 09:15 JON 03/25/24 09:07 Wound Center Nurse 1 #4- LLE ANTERIOR CLUSTER -Combined with other wound No -Current Size (cm) - Length 2.2 -Current Size (cm) - Width 2.8 -Current Size (cm) - Depth 0.1 -Total Square Cm 6.16 -Photo Taken Yes -Epithelialization Medium 34-66% -Tunneling No -Undermining/Tunneling No -Circular Undermining No -Exudate Amt Medium -Exudate Type Serosanguineous -Wound Margin Flat & Intact -Granulation Amt Large (67-100%) -Granulation Quality [place] -Slough/Fibrin Yes -Necrosis Amt Small (1-33%) -Necrotic Tissue Type Adherent Slough -Structure Exposed N/A -Texture (Lety-wound Skin Appearance) Assessed, Localized Edema -Moisture (Lety-wound Skin Appearance) Assessed,Dry/ Scaly -Color (Lety-wound Skin Appearance) Assessed -Temperature (Lety-wound Skin No Abnormality Appearance) (Pt Warm) -Ulcer Cleansing Soap and Water -Foul Odor after Cleansing No -Anesthetic Used 5% Lidocaine Gel 3. LLE lat cluster -Combined with other wound No -Current Size (cm) - Length 0.1 -Current Size (cm) - Width 0.1 -Current Size (cm) - Depth 0.1 -Total Square Cm 0.01 -Photo Taken Yes -Epithelialization Large 67-100% -Tunneling No -Undermining/Tunneling No -Circular Undermining No -Exudate Amt Small -Exudate Type Serosanguineous -Wound Margin Flat & Intact -Granulation Amt Large (67-100%) -Granulation Quality [place] -Slough/Fibrin Yes -Necrosis Amt Small (1-33%) -Necrotic Tissue Type Adherent Slough -Structure Exposed N/A -Texture (Lety-wound Skin Appearance) Assessed, Excoriation, Localized Edema -Moisture (Lety-wound Skin Appearance) Assessed,Dry/ Scaly -Color (Lety-wound Skin Appearance) Assessed -Temperature (Lety-wound Skin No Abnormality Appearance) (Pt Warm) -Tenderness on Palpation (Lety-wound No Skin Appearance) -Ulcer Cleansing Soap and Water -Foul Odor after Cleansing No -Anesthetic Used 5% Lidocaine Gel Lower Limb Edema Present Yes Left Calf (cm) 41.5 Left Ankle (cm) 28.6 WC - Nurse 2 - General Ulcer CM Notes Start: 03/25/24 09:07 Freq: Status: Active Protocol: Activity Type Activity Date Activity User E-sign Co-sign Detail Recorded Client Recorded Date Recorded By Document 03/25/24 09:33 [facility] [id number] 03/25/24 09:50 [facility] 03/25/24 09:33 Wound Center Nurse 2 #4- LLE ANTERIOR CLUSTER -Time 09:33 -Correct Patient Yes -Correct Side, Site, Position Yes -Correct Procedure Yes -Procedure Performed Yes -Type of Procedure Debridement -Clinical Debridement Subcutaneous -Tissue Removed Subcutaneous -Post Debridement (cm) - Length 2.2 -Post Debridement (cm) - Width 2.7 -Post Debridement (cm) - Depth 0.1 -Total Square (Post) (cm) 5.94 -Area of Debridement (cm) - Length 2.2 -Area of Debridement (cm) - Width 2.7 -Total Square (Area) (cm) 5.94 -Tunneling No -Undermining/Tunneling No -Circular Undermining No -Wound/Ulcer Outcome Not Healed -Ulcer Cleansing Rinsed/ Irrigated with Saline -Foul Odor after Cleansing No -Bioengineered Tissue No -Type of Bioengineered Tissue Epifix Mesh -Expiration Date 08/19/28 -Product Lot Number [id number] -Percent Used 100 -Lot number of Saline Used 01/18/2027 -Bleeding Controlled with Pressure -Treatment Response Procedure Tolerated Well -Debridement - Subq, 1st 20sq cm No -Apply Skin Sub - 1st 25 sq cm - Legs 1 -Epifix Mesh (per sq cm) 11 3. LLE lat cluster -Time 09:34 -Correct Patient Yes -Correct Side, Site, Position Yes -Correct Procedure Yes -Procedure Performed Yes -Type of Procedure Debridement -Clinical Debridement Subcutaneous -Tissue Removed Subcutaneous -Post Debridement (cm) - Length 0.4 -Post Debridement (cm) - Width 0.4 -Post Debridement (cm) - Depth 0.1 -Total Square (Post) (cm) 0.16 -Area of Debridement (cm) - Length 0.4 -Area of Debridement (cm) - Width 0.4 -Total Square (Area) (cm) 0.16 -Tunneling No -Undermining/Tunneling No -Circular Undermining No -Wound/Ulcer Outcome Not Healed -Ulcer Cleansing Rinsed/ Irrigated with Saline -Foul Odor after Cleansing No -Bioengineered Tissue No -Bleeding Controlled with Pressure -Treatment Response Procedure Tolerated Well -Debridement - Subq, 1st 20sq cm Yes Pain Scale: 0-10 Numeric Is Patient Pain Free? Yes WC - Nurse 3 - General Ulcer D/C NN Start: 03/25/24 09:07 Freq: Status: Active Protocol: Activity Type Activity Date Activity User E-sign Co-sign Detail Recorded Client Recorded Date Recorded By Document 03/25/24 10:04 ML [id number] 03/25/24 10:06 ML 03/25/24 10:04 Wound Care Center Nurse 3 #4- LLE ANTERIOR CLUSTER -Primary Dressing Applied Aquacel Extra -Other Dressing abd -Primary Dressing Covered/Secured with Dry Gauze & Roll Gauze, Secured with Tape -Aquacel Extra 1 johny -Tubular Bandage Single Layer -Size of Tubigrip Used Size E -Size E ($) 1 Pain Scale: 0-10 Numeric Is Patient Pain Free? Yes Assessment/Plan Assessment/Plan (1) Non-pressure chronic ulcer of left calf with fat layer exposed: CODE(S): L97.222 - Non-pressure chronic ulcer of left calf with fat layer exposed (2) Venous stasis dermatitis of left lower extremity: CODE(S): I87.2 - Venous insufficiency (chronic) (peripheral) (3) Leg edema: CODE(S): R60.0 - Localized edema PLAN: Plan Patient seen and evaluated Pre-debridement: Lateral LLE cluster: healed; Anterior LLE cluster: 1.9 cm x 2.4 cm x 0.1 cm Ulceration was debrided as noted in the clinical panel above. Postdebridement measurement was Lateral LLE cluster: healed; Anterior LLE cluster: 2.0 cm x 2.5 cm x 0.1 cm. No signs of infection. EpiFix #9 applied to anterior ulceration site and dressed with Adaptic touch, and Steri-Strips, Aquacel Ag and silicone border dressing. Tubigrip compression applied to left lower extremity. She does continue to wear compression stocking to the right lower extremity. Lateral site has healed and was dressed with dry protective dressing. There is continued reduction in the ulcerations sizes versus previous visit. Continues healing well at this time. Edema controlled and maintained with compression. Continues Tubigrip compression She has been approved for EpiFix application, will continue applying. She is to continue to elevate lower extremities at all times of rest to aid in edema control Recommend continued use of compression stockings once ulcerations have healed. Compression recommended 20 to 30 mmHg. Recommended updating compression stockings to proper sizing as her previous stockings have rolled down her leg causing the ulceration. Discussed signs and symptoms of infection. Discussed if she notices increasing redness about the ulcer sites that moves up the leg or if red streaking is noted up the leg, purulent drainage from the wound sites, increasing foul odor from the wound, or if she experiences fever greater than 101 degree accompanied by nausea, vomiting, chills of these are signs of a progressing infection and she should report to the ED to receive IV antibiotics and further evaluation. She is understanding of this today. The following work up and care recommendations were made: Dressing: Epifix, Adaptic touch and steri-strips, Aquacel Ag and dry sterile dressing to anterior. Lateral leg dry protective dressing. Compression stocking 20 to 30 mmHg to knee-high. Wash: Do not get wet Tissue growth optimization: EpiFix anterior leg Offload: Compression stockings and elevation of the lower extremities. Vascular: Venous Doppler performed 12/09/2023 notes acute DVT left gastroc vein with chronic changes in the left popliteal vein. Edema: Continue elevation of lower extremities at all times of rest and continue compression stocking 20 to 30 mmHg. Infection: No signs of infection Imaging: Radiographs 12/09/2023 of the right foot demonstrates diffuse arthritis. No signs of infection. Pain: May take extra strength Tylenol for discomfort Host factors: Chronic venous stasis and lower extremity edema. I answered all the patient's questions. To return to the wound healing center in 2 weeks or call sooner if the patient has any questions or concerns.
[2024-04-08 09:22] VITALS: BP 110/70; PULSE 93; RESP 18; TEMP 36.6
== END 2024-04-20 23:59 | disposition home or self-care (01) ==
LOC: WC 09:00
PROVIDERS: PCP Internal Medicine; Referring Provider Student in an Organized Health Care Education/Training Program; Visit Provider Student in an Organized Health Care Education/Training Program
DX: I87.332 Chronic venous hypertension (idiopathic) with ulcer and inflammation of left lower extremity (principal); L97.222 Non-pressure chronic ulcer of left calf with fat layer exposed; I87.2 Venous insufficiency (chronic) (peripheral); R60.0 Localized edema
CPT/HCPCS: 11042; 15271; Q4186

== ENCOUNTER 2024-05-20 09:30 | Outpatient (RCR) | payer MEDICARE, SELFPAY ==
[2024-04-21 00:17] VITALS: BP 134/63; PULSE 88; RESP 18; TEMP 36.6
[2024-04-22 09:24] VITALS: BP 123/61; PULSE 99; RESP 16; TEMP 36.5
--- NOTE | 2024-04-22 09:48 | PN.PCM_ITS ---
History of Present Illness Date of Service: 04/22/24 Chief Complaint: Venous stasis ulceration, chronic venous insufficiency, v aricose veins with inflammation and ulceration, venous hypertension with inflammation and ulceration, venous stasis dermatitis - Left lower extremity History of Wound: DAVID PATTON, is a 73 F who presents to [facility] on 12/09/2023 with complaint of generalized weakness and fatigue for at least 4 weeks duration. She was previously diagnosed with hemolytic anemia by Dr. Tay 10 years ago and her weakness feels the same. Examination in the ER demonstrates an anterior left lower extremity ulceration. Patient reports that she does wear compression stockings and unfortunately the left stocking did roll down her leg became stuck causing circumferential ulcerations. She denies going to the wound care center for treatment of the ulcerations, but has been seen there in the past for venous ulcerations by Dr. Burrows. She denied F/C/chills/SOB/fever. Also denies dysuria and hematuria and chest pain. Workup in the ED did demonstrate neutropenia 3.3, thrombocytopenia, and acute kidney injury BUN of 66. Following admission overnight hemoglobin did decrease from 13.3 down to 4.8 and she was transferred to the ICU with hematology follow up and did receive transfusion which did help. Podiatry was following during admission for left lower extremity ulceration and she did undergo selective debridement at that time. Following discharge she was referred to the wound care center for continued follow of her lower extremity ulcerations. Patient states that she is feeling better since leaving the hospital. She currently denies N/V/F/chills. Denies further complaints. Subjective Subjective This is a 74-year-old female who presents to the wound care center today for continued follow-up of a left lower extremity circumferential ulceration secondary to a compression stocking that had rolled down and got stuck. She continues to leave grafting product intact to the anterior lower extremity. Continues changing dressings overlying the lateral portion of the lower extremity daily. She reports ulcerations getting smaller and lateral side remains healed. She denies constitutional symptoms. Denies further complaints. Objective Data Objective Data Vital Signs: Vital Signs Temp Pulse Resp BP 97.7 F L 99 16 123/61 H 04/22/24 09:24 04/22/24 09:24 04/22/24 09:24 04/22/24 09:24 Physical Exam Const alert, oriented x3 and no apparent distress General Appearance: cooperative HEENT normocephalic Eyes General Eye: normal appearance of both eyes Neck General: normal visual inspection Lymph Lymphatic: no lymphadenopathy noted and no lymphedema noted Resp normal respiratory effort Cardio regular rate and regular rhythm Extremity Extremity Narrative: Vascular: DP and PT pulses palpable right lower extremity, DP weakly palpable left lower extremity, PT palpable left lower extremity. CFT less than 4 seconds to the digits. Normal temperature gradient. Hair growth is absent to digits bilateral. Neurologic: Epicritic sensation intact. No focal deficits noted. Musculoskeletal: Right lower extremity weakness secondary to polio. Left lower extremity muscle strength 5 of 5 age-appropriate. Dermatologic: Left lower extremity demonstrates chronic venous stasis with hemosiderin deposition rubor at the anterior aspect of the lower extremity. There are small circumferential pressure ulcerations secondary to compression stocking that had rolled down and got stuck. Ulcerations demonstrates superficial layers that are granular and healthy appearing. Ulcerations are improving with reduction in size. There are some areas of healing anteriorly noted and lateral aspect remains healed. No signs of infection. Right lower extremity grossly normal. Skin no rashes or lesions noted and skin turgor normal Neuro moves all extremities Debridement Note Debridement Note Wound debrided: Left anterior lower extremity Laterality: Left Wound Grade/Stage: Aguila stage I Type of Debridement: Excisional debridement Anesthesia Used: 5% Lidocaine Gel Depth: Down to and including healthy tissue and in the subcutaneous layer Percentage of wound debrided: 100 Instrument Used: 5mm curette Tissue Removed: Fibrous, devitalized subcutaneous, biofilm, slough Severity: Fat Layer Exposed Amount of bleeding with debridement: Mild Bleeding Controlled with: Compression and gauze Patient tolerated procedure: Patient tolerated procedure well Post-Debridement Measurements and Additional Note: Post-Debridement Measurements/Treatment - Nurse 1 - General Ulcer Assessment Start: 04/22/24 09:24 Freq: Status: Active Protocol: LOCO Activity Type Activity Date Activity User E-sign Co-sign Detail Recorded Client Recorded Date Recorded By Document 04/22/24 09:24 SARY [id number] 04/22/24 09:34 CP 04/22/24 09:24 - Today's Visit Information Type of service 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 Any new allergies or adverse reactions No Had a fall/change in ADL's that may No increase risk of falls Signs or symptoms of abuse and/or No neglect since last visit Have you been in the hospital since your No last visit? Has dressing in place as prescribed Yes Has compression in place as prescribed Yes Has offloadiing in place as prescribed N/A Experienced any changes in pain level or No management Pain Scale: 0-10 Numeric Is Patient Pain Free? Yes WC - Nurse 1 - General Ulcer Measurement Start: 04/22/24 09:24 Freq: Status: Active Protocol: Activity Type Activity Date Activity User E-sign Co-sign Detail Recorded Client Recorded Date Recorded By Document 04/22/24 09:24 CP [id number] 04/22/24 09:34 CP 04/22/24 09:24 Wound Center Nurse 1 #4- LLE ANTERIOR CLUSTER -Current Size (cm) - Length 1.8 -Current Size (cm) - Width 3 -Current Size (cm) - Depth 0.1 -Total Square Cm 5.4 -Exudate Amt Medium -Exudate Type Serous -Granulation Amt Medium (34-66%) -Granulation Quality Red -Slough/Fibrin Yes -Necrosis Amt Medium (34-66%) -Necrotic Tissue Type Adherent Slough -Structure Exposed N/A -Moisture (Lety-wound Skin Appearance) No Abnormality -Color (Lety-wound Skin Appearance) Erythema -Temperature (Lety-wound Skin No Abnormality Appearance) (Pt Warm) -Tenderness on Palpation (Lety-wound No Skin Appearance) -Ulcer Cleansing Soap and Water -Anesthetic Used 5% Lidocaine Gel Left Calf (cm) 39.5 Left Ankle (cm) 29 Assessment/Plan Assessment/Plan (1) Non-pressure chronic ulcer of left calf with fat layer exposed: CODE(S): L97.222 - Non-pressure chronic ulcer of left calf with fat layer exposed (2) Venous stasis dermatitis of left lower extremity: CODE(S): I87.2 - Venous insufficiency (chronic) (peripheral) (3) Leg edema: CODE(S): R60.0 - Localized edema PLAN: Plan Patient seen and evaluated Pre-debridement: Lateral LLE cluster: healed; Anterior LLE cluster: 1.8 cm x 2.7 cm x 0.1 cm Ulceration was debrided as noted in the clinical panel above. Postdebridement measurement was Lateral LLE cluster: remains healed; Anterior LLE cluster: 1.9 cm x 2.8 cm x 0.1 cm. No signs of infection. EpiFix #10 applied to anterior ulceration site and dressed with Adaptic touch, and Steri-Strips, Aquacel Ag and silicone border dressing. Tubigrip compression applied to left lower extremity. She does continue to wear compression stocking to the right lower extremity. Lateral site has healed and was dressed with dry protective dressing. There is continued reduction in the ulcerations sizes versus previous visit. Continues healing well at this time. Edema controlled and maintained with compression. Continues Tubigrip compression She has been approved for EpiFix application, will continue applying. She is to continue to elevate lower extremities at all times of rest to aid in edema control Recommend continued use of compression stockings once ulcerations have healed. Compression recommended 20 to 30 mmHg. Recommended updating compression stockings to proper sizing as her previous stockings have rolled down her leg causing the ulceration. Discussed signs and symptoms of infection. Discussed if she notices increasing redness about the ulcer sites that moves up the leg or if red streaking is noted up the leg, purulent drainage from the wound sites, increasing foul odor from the wound, or if she experiences fever greater than 101 degree accompanied by nausea, vomiting, chills of these are signs of a progressing infection and she should report to the ED to receive IV antibiotics and further evaluation. She is understanding of this today. The following work up and care recommendations were made: Dressing: Epifix, Adaptic touch and steri-strips, Aquacel Ag and dry sterile dressing to anterior. Lateral leg dry protective dressing. Compression stocking 20 to 30 mmHg to knee-high. Wash: Do not get wet Tissue growth optimization: EpiFix anterior leg Offload: Compression stockings and elevation of the lower extremities. Vascular: Venous Doppler performed 12/09/2023 notes acute DVT left gastroc vein with chronic changes in the left popliteal vein. Edema: Continue elevation of lower extremities at all times of rest and continue compression stocking 20 to 30 mmHg. Infection: No signs of infection Imaging: Radiographs 12/09/2023 of the right foot demonstrates diffuse arthritis. No signs of infection. Pain: May take extra strength Tylenol for discomfort Host factors: Chronic venous stasis and lower extremity edema. I answered all the patient's questions. To return to the wound healing center in 2 weeks or call sooner if the patient has any questions or concerns.
[2024-05-13 09:26] VITALS: BP 139/58; PULSE 105; RESP 18; TEMP 37.3
--- NOTE | 2024-05-13 19:03 | PN.PCM_ITS ---
History of Present Illness Date of Service: 05/13/24 Chief Complaint: Venous stasis ulceration, chronic venous insufficiency, v aricose veins with inflammation and ulceration, venous hypertension with inflammation and ulceration, venous stasis dermatitis - Left lower extremity History of Wound: DAVID PATTON, is a 73 F who presents to [facility] on 12/09/2023 with complaint of generalized weakness and fatigue for at least 4 weeks duration. She was previously diagnosed with hemolytic anemia by Dr. Tay 10 years ago and her weakness feels the same. Examination in the ER demonstrates an anterior left lower extremity ulceration. Patient reports that she does wear compression stockings and unfortunately the left stocking did roll down her leg became stuck causing circumferential ulcerations. She denies going to the wound care center for treatment of the ulcerations, but has been seen there in the past for venous ulcerations by Dr. Burrows. She denied F/C/chills/SOB/fever. Also denies dysuria and hematuria and chest pain. Workup in the ED did demonstrate neutropenia 3.3, thrombocytopenia, and acute kidney injury BUN of 66. Following admission overnight hemoglobin did decrease from 13.3 down to 4.8 and she was transferred to the ICU with hematology follow up and did receive transfusion which did help. Podiatry was following during admission for left lower extremity ulceration and she did undergo selective debridement at that time. Following discharge she was referred to the wound care center for continued follow of her lower extremity ulcerations. Patient states that she is feeling better since leaving the hospital. She currently denies N/V/F/chills. Denies further complaints. Subjective Subjective This is a 74-year-old female who presents to the wound care center today for continued follow-up of a left lower extremity circumferential ulceration secondary to a compression stocking that had rolled down and got stuck. She continues to leave grafting product intact to the anterior lower extremity. Continues changing dressings overlying the lateral portion of the lower extremity daily. Reports she was unable to make it due to weather last week. States she continues to utilize the Tubigrip compression however compression may be old as she does appear swollen today with multiple skin tears. She denies constitutional symptoms. Denies further complaints. Objective Data Objective Data Vital Signs: Vital Signs Temp Pulse Resp BP 99.1 F 105 H 18 139/58 H 05/13/24 09:26 05/13/24 09:26 05/13/24 09:26 05/13/24 09:26 Physical Exam Const alert, oriented x3 and no apparent distress General Appearance: cooperative HEENT normocephalic Eyes General Eye: normal appearance of both eyes Neck General: normal visual inspection Lymph Lymphatic: no lymphadenopathy noted and no lymphedema noted Resp normal respiratory effort Cardio regular rate and regular rhythm Extremity Extremity Narrative: Vascular: DP and PT pulses palpable right lower extremity, DP weakly palpable left lower extremity, PT palpable left lower extremity. CFT less than 4 seconds to the digits. Normal temperature gradient. Hair growth is absent to digits bilateral. Neurologic: Epicritic sensation intact. No focal deficits noted. Musculoskeletal: Right lower extremity weakness secondary to polio. Left lower extremity muscle strength 5 of 5 age-appropriate. Dermatologic: Left lower extremity demonstrates chronic venous stasis with hemosiderin deposition rubor at the anterior aspect of the lower extremity. There are small healed circumferential pressure ulcerations secondary to compression stocking that had rolled down and got stuck. Ulceration anterior aspect lower extremity demonstrates healthy granular layer. Left lower extremity demonstrates significant edema from use of old Tubigrip stocking with multiple skin tears. No signs of infection. Right lower extremity grossly normal. Skin no rashes or lesions noted and skin turgor normal Neuro moves all extremities Debridement Note Debridement Note Wound debrided: Anterior left lower extremity Laterality: Left Wound Grade/Stage: Aguila stage I Type of Debridement: Excisional debridement Anesthesia Used: 5% Lidocaine Gel Depth: Down to and including healthy tissue and in the subcutaneous layer Percentage of wound debrided: 100 Instrument Used: 5mm curette Tissue Removed: I reviewed and discussed his case today. Debridement was performed today a Severity: Fat Layer Exposed Amount of bleeding with debridement: Mild Bleeding Controlled with: Compression and gauze Patient tolerated procedure: Patient tolerated procedure well Post-Debridement Measurements and Additional Note: Post-Debridement Measurements/Treatment - Nurse 1 - General Ulcer Assessment Start: 04/22/24 09:24 Freq: Status: Active Protocol: LOCO Activity Type Activity Date Activity User E-sign Co-sign Detail Recorded Client Recorded Date Recorded By Document 04/22/24 09:24 CP [id number] 04/22/24 09:34 CP Document 05/13/24 09:26 RB [id number] 05/13/24 09:30 RB 04/22/24 05/13/24 09:24 09:26 - Today's Visit Information Type of service Follow-up Visit Follow-up Visit (Physician/COUNCILOR (Physician/COUNCILOR ) ) Arrival Mode Ambulatory Ambulatory Transfer Assistance None Patient Identification Verified (Name & Yes Yes ) Patient Requires Transmission-Based No No Precautions Safety Precautions NA Vital Signs Temperature (97.8 F-99.1 F) 97.7 F L 99.1 F Temperature Source Temporal Temporal Pulse Rate (60-100) 99 105 H Pulse Location Monitor Monitor Respiratory Rate (12-18) 16 18 Respiratory rate source Observation Observation Blood Pressure (90/60-120/80) 123/61 H 139/58 H Blood Pressure Mean (mm Hg) 81 85 Source Monitor Monitor Position Sitting Semi-Fowlers Blood Pressure Location Left Forearm Left Arm History Since Last Visit- (Skip if this is Patient's initial visit) Have you changed medications since your No No last visit? Any new allergies or adverse reactions No No Had a fall/change in ADL's that may No No increase risk of falls Signs or symptoms of abuse and/or No No neglect since last visit Have you been in the hospital since your No No last visit? Has dressing in place as prescribed Yes Yes Has compression in place as prescribed Yes Yes Has offloadiing in place as prescribed N/A N/A Experienced any changes in pain level or No No management Left Footwear Regular Shoe Right Footwear Regular Shoe Pain Scale: 0-10 Numeric Is Patient Pain Free? Yes No lle -Description Burning,Aching -Intensity 4 -Duration (hours) Acute -Pain Behavior Withdrawal from Touch -Pain Aggravating Factors ADL's -Alleviating Factors/Interventions Medication -Effectiveness of Alleviating Factor/ Moderately Intervention effective - Nurse 1 - General Ulcer Measurement Start: 04/22/24 09:24 Freq: Status: Active Protocol: Activity Type Activity Date Activity User E-sign Co-sign Detail Recorded Client Recorded Date Recorded By Document 04/22/24 09:24 CP [id number] 04/22/24 09:34 CP Document 05/13/24 09:26 RB [id number] 05/13/24 09:30 RB 04/22/24 05/13/24 09:24 09:26 Wound Center Nurse 1 #4- LLE ANTERIOR CLUSTER -Combined with other wound No -Current Size (cm) - Length 1.8 1.8 -Current Size (cm) - Width 3 2 -Current Size (cm) - Depth 0.1 0.1 -Total Square Cm 5.4 3.6 -Photo Taken Yes -Tunneling No -Undermining/Tunneling No -Circular Undermining No -Exudate Amt Medium Medium -Exudate Type Serous Serosanguineous -Wound Margin Distinct, Outline Attached -Granulation Amt Medium (34-66%) Medium (34-66%) -Granulation Quality Red Haena -Slough/Fibrin Yes Yes -Necrosis Amt Medium (34-66%) Medium (34-66%) -Necrotic Tissue Type Adherent Slough Adherent Slough -Structure Exposed N/A N/A -Texture (Lety-wound Skin Appearance) Excoriation -Moisture (Lety-wound Skin Appearance) No Abnormality Assessed -Color (Lety-wound Skin Appearance) Erythema Erythema -Temperature (Lety-wound Skin No Abnormality No Abnormality Appearance) (Pt Warm) (Pt Warm) -Tenderness on Palpation (Lety-wound No No Skin Appearance) -Ulcer Cleansing Soap and Water Wound Cleanser -Foul Odor after Cleansing No -Anesthetic Used 5% Lidocaine 4% Lidocaine Gel Solution Left Calf (cm) 39.5 Left Ankle (cm) 29 WC - Nurse 2 - General Ulcer CM Notes Start: 04/22/24 09:24 Freq: Status: Active Protocol: Activity Type Activity Date Activity User E-sign Co-sign Detail Recorded Client Recorded Date Recorded By Document 04/22/24 09:40 [facility] [id number] 04/22/24 09:58 [facility] Document 05/13/24 09:49 [facility] [id number] 05/13/24 09:56 [facility] 04/22/24 05/13/24 09:40 09:49 Wound Center Nurse 2 #4- LLE ANTERIOR CLUSTER -Time 09:53 09:49 -Correct Patient Yes Yes -Correct Side, Site, Position Yes Yes -Correct Procedure Yes Yes -Procedure Performed Yes Yes -Type of Procedure Debridement Debridement -Clinical Debridement Subcutaneous Subcutaneous -Tissue Removed Subcutaneous Subcutaneous -Post Debridement (cm) - Length 1.9 1.4 -Post Debridement (cm) - Width 2.8 1.5 -Post Debridement (cm) - Depth 0.1 0.1 -Total Square (Post) (cm) 5.32 2.10 -Area of Debridement (cm) - Length 1.9 1.4 -Area of Debridement (cm) - Width 2.8 1.5 -Total Square (Area) (cm) 5.32 2.10 -Tunneling No No -Undermining/Tunneling No No -Circular Undermining No No -Wound/Ulcer Outcome Not Healed Not Healed -Ulcer Cleansing Rinsed/ Rinsed/ Irrigated with Irrigated with Saline Saline -Foul Odor after Cleansing No No -Bioengineered Tissue Yes No -Type of Bioengineered Tissue Epifix -Expiration Date 11/19/28 -Product Lot Number [id number] -Percent Used 100 -Lot number of Saline Used [id number] -Bleeding Controlled with NA Pressure -Treatment Response Procedure Procedure Tolerated Well Tolerated Well -Debridement - Subq, 1st 20sq cm No Yes -Apply Skin Sub - 1st 25 sq cm - Legs 1 -Epifix (per sq cm) 4 Pain Scale: 0-10 Numeric Is Patient Pain Free? Yes Yes - Nurse 3 - General Ulcer D/C NN Start: 04/22/24 09:24 Freq: Status: Active Protocol: Activity Type Activity Date Activity User E-sign Co-sign Detail Recorded Client Recorded Date Recorded By Document 04/22/24 10:10 DL [id number] 04/22/24 10:11 DL Document 05/13/24 10:18 DL [id number] 05/13/24 10:19 DL 04/22/24 05/13/24 10:10 10:18 Wound Care Center Nurse 3 #4- LLE ANTERIOR CLUSTER -Ulcer Cleansing Soap and Water -Foul Odor after Cleansing No No -Primary Dressing Applied Aquacel Extra, NonAdherent Contact Layer -Primary Dressing Applied NonAdherent Contact Layer, Promogran Yolanda Matter -Other Dressing epifix -Primary Dressing Covered/Secured with Dry Gauze & Dry Gauze & Roll Gauze, Roll Gauze, Secured with Secured with Tape Tape -Aquacel Extra 1 -Promogran Yolanda Matter 1 Right -Tubular Bandage Single Layer -Size of Tubigrip Used Size E -Size E ($) 1 Left -Multi-Layered Wrap Application Multi-Layer Comp - Left ($) johny -Tubular Bandage Single Layer -Size of Tubigrip Used Size E -Size E ($) 1 Treatment Response Procedure Procedure Tolerated Well Tolerated Well Pain Scale: 0-10 Numeric Is Patient Pain Free? Yes Yes - Visit Discharge Discharge Condition Stable Stable Ambulatory Status Ambulatory Ambulatory Transportation Private Auto Private Auto Facility Type Home Health Orders Sent Yes Assessment/Plan Assessment/Plan (1) Non-pressure chronic ulcer of left calf with fat layer exposed: CODE(S): L97.222 - Non-pressure chronic ulcer of left calf with fat layer exposed (2) Venous stasis dermatitis of left lower extremity: CODE(S): I87.2 - Venous insufficiency (chronic) (peripheral) (3) Leg edema: CODE(S): R60.0 - Localized edema PLAN: Plan Patient seen and evaluated Pre-debridement: Lateral LLE cluster: healed; Anterior LLE cluster: 1.3 cm x 1.5 cm x 0.1 cm. Multiple areas of superficial skin tear secondary to use of old compression stocking which was inefficient as there is significant edema today versus prior examination. Ulceration was debrided as noted in the clinical panel above. Postdebridement measurement: Lateral LLE cluster remains healed; Anterior LLE cluster: 1.4 cm x 1.5 cm x 0.1 cm. No signs of infection. Yolanda moistened with hydrogel, Tubigrip compression stocking. She is to change daily. She does continue to wear compression stocking to the right lower extremity. There is continued reduction in the ulcerations sizes versus previous visit despite increased edema with multiple superficial skin tears. Continues healing well at this time. Edema controlled and maintained with compression. Continues Tubigrip compression She has completed all 10 applications of EpiFix. She is to continue to elevate lower extremities at all times of rest to aid in edema control Recommend continued use of compression stockings once ulcerations have healed. Compression recommended 20 to 30 mmHg. Recommended updating compression stockings to proper sizing as her previous stockings have rolled down her leg causing the ulceration. Discussed signs and symptoms of infection. Discussed if she notices increasing redness about the ulcer sites that moves up the leg or if red streaking is noted up the leg, purulent drainage from the wound sites, increasing foul odor from the wound, or if she experiences fever greater than 101 degree accompanied by nausea, vomiting, chills of these are signs of a progressing infection and she should report to the ED to receive IV antibiotics and further evaluation. She is understanding of this today. The following work up and care recommendations were made: Dressing: Yolanda moistened with hydrogel and Tubigrip compression left lower extremity. Compression stocking 20 to 30 mmHg to knee-high right lower extremity. Wash: Soap and water Tissue growth optimization: Yolanda and hydrogel Offload: Compression stockings and elevation of the lower extremities. Vascular: Venous Doppler performed 12/09/2023 notes acute DVT left gastroc vein with chronic changes in the left popliteal vein. Edema: Continue elevation of lower extremities at all times of rest and continue compression stocking 20 to 30 mmHg. Infection: No signs of infection Imaging: Radiographs 12/09/2023 of the right foot demonstrates diffuse arthritis. No signs of infection. Pain: May take extra strength Tylenol for discomfort Host factors: Chronic venous stasis and lower extremity edema. I answered all the patient's questions. To return to the wound healing center in 1 week or call sooner if the patient has any questions or concerns.
--- NOTE | 2024-05-14 14:29 | WC ---
PHOTO 05/13/24 ALVARO GONZALEZ
[2024-05-17 09:05] VITALS: BP 136/64; PULSE 96; RESP 18; TEMP 36.9
[2024-05-20 09:50] VITALS: BP 131/58; PULSE 94; RESP 18; TEMP 36.3
--- NOTE | 2024-05-20 10:40 | PN.PCM_ITS ---
History of Present Illness Date of Service: 05/20/24 Chief Complaint: Venous stasis ulceration, chronic venous insufficiency, v aricose veins with inflammation and ulceration, venous hypertension with inflammation and ulceration, venous stasis dermatitis - Left lower extremity History of Wound: DAVID PATTON, is a 73 F who presents to [facility] on 12/09/2023 with complaint of generalized weakness and fatigue for at least 4 weeks duration. She was previously diagnosed with hemolytic anemia by Dr. Tay 10 years ago and her weakness feels the same. Examination in the ER demonstrates an anterior left lower extremity ulceration. Patient reports that she does wear compression stockings and unfortunately the left stocking did roll down her leg became stuck causing circumferential ulcerations. She denies going to the wound care center for treatment of the ulcerations, but has been seen there in the past for venous ulcerations by Dr. Burrows. She denied F/C/chills/SOB/fever. Also denies dysuria and hematuria and chest pain. Workup in the ED did demonstrate neutropenia 3.3, thrombocytopenia, and acute kidney injury BUN of 66. Following admission overnight hemoglobin did decrease from 13.3 down to 4.8 and she was transferred to the ICU with hematology follow up and did receive transfusion which did help. Podiatry was following during admission for left lower extremity ulceration and she did undergo selective debridement at that time. Following discharge she was referred to the wound care center for continued follow of her lower extremity ulcerations. Patient states that she is feeling better since leaving the hospital. She currently denies N/V/F/chills. Denies further complaints. Subjective Subjective This is a 74-year-old female who presents to the wound care center today for continued follow-up of a left lower extremity circumferential ulceration secondary to a compression stocking that had rolled down and got stuck. She states the leg looks better after improving her compression of the multiple skin tears from the previous week have healed. She does note improvement in edema versus previous visit. Denies constitutional symptoms. Denies further complaints. Objective Data Objective Data Vital Signs: Vital Signs Temp Pulse Resp BP O2 Del Method 97.4 F L 94 18 131/58 H Room Air 05/20/24 09:50 05/20/24 09:50 05/20/24 09:50 05/20/24 09:50 05/17/24 09:05 Oxygen Delivery Method Room Air Physical Exam Const alert, oriented x3 and no apparent distress General Appearance: cooperative HEENT normocephalic Eyes General Eye: normal appearance of both eyes Neck General: normal visual inspection Lymph Lymphatic: no lymphadenopathy noted and no lymphedema noted Resp normal respiratory effort Cardio regular rate and regular rhythm Extremity Extremity Narrative: Vascular: DP and PT pulses palpable right lower extremity, DP weakly palpable left lower extremity, PT palpable left lower extremity. CFT less than 4 seconds to the digits. Normal temperature gradient. Hair growth is absent to digits bilateral. Neurologic: Epicritic sensation intact. No focal deficits noted. Musculoskeletal: Right lower extremity weakness secondary to polio. Left lower extremity muscle strength 5 of 5 age-appropriate. Dermatologic: Left lower extremity demonstrates chronic venous stasis with hemosiderin deposition rubor at the anterior aspect of the lower extremity. There are small healed circumferential pressure ulcerations secondary to compression stocking that had rolled down and got stuck. Ulceration anterior aspect lower extremity demonstrates healthy granular layer. Left lower extremity demonstrates improvement in edema with previous multiple skin tears that have now healed. No signs of infection. Right lower extremity grossly no rmal. Skin no rashes or lesions noted and skin turgor normal Neuro moves all extremities Debridement Note Debridement Note Wound debrided: Left lower extremity Laterality: Left Wound Grade/Stage: Aguila stage I Type of Debridement: Excisional debridement Anesthesia Used: 5% Lidocaine Gel Depth: Down to and including healthy tissue and in the subcutaneous layer Percentage of wound debrided: 100 Instrument Used: 5mm curette Tissue Removed: Fibrous, devitalized subcutaneous, biofilm, slough Severity: Fat Layer Exposed Amount of bleeding with debridement: Mild Bleeding Controlled with: Compression and gauze Patient tolerated procedure: Patient tolerated procedure well Post-Debridement Measurements and Additional Note: Post-Debridement Measurements/Treatment WC - Nurse 1 - General Ulcer Assessment Start: 04/22/24 09:24 Freq: Status: Active Protocol: LOCO Activity Type Activity Date Activity User E-sign Co-sign Detail Recorded Client Recorded Date Recorded By Document 04/22/24 09:24 CP [id number] 04/22/24 09:34 CP Document 05/13/24 09:26 RB [id number] 05/13/24 09:30 RB Document 05/17/24 09:05 KW [id number] 05/17/24 09:14 KW Document 05/20/24 09:50 RB [id number] 05/20/24 09:53 RB 04/22/24 05/13/24 05/17/24 09:24 09:26 09:05 - Today's Visit Information Type of service Follow-up Visit Follow-up Visit Nurse-only (Physician/SYSTEM SOFTWARE PROGRAMMER (Physician/SYSTEM SOFTWARE PROGRAMMER Visit ) ) Arrival Mode Ambulatory Ambulatory Ambulatory Transfer Assistance None Patient Identification Verified (Name & Yes Yes Yes ) Patient Requires Transmission-Based No No Precautions Safety Precautions NA Vital Signs Temperature (97.8 F-99.1 F) 97.7 F L 99.1 F 98.4 F Temperature Source Temporal Temporal Temporal Pulse Rate (60-100) 99 105 H 96 Pulse Location Monitor Monitor Monitor Respiratory Rate (12-18) 16 18 18 Respiratory rate source Observation Observation Observation Oxygen Delivery Method Room Air Blood Pressure (90/60-120/80) 123/61 H 139/58 H 136/64 H Blood Pressure Mean (mm Hg) 81 85 88 Source Monitor Monitor Monitor Position Sitting Semi-Fowlers Sitting Blood Pressure Location Left Forearm Left Arm Left Arm History Since Last Visit- (Skip if this is Patient's initial visit) Have you changed medications since your No No No last visit? Any new allergies or adverse reactions No No No Had a fall/change in ADL's that may No No No increase risk of falls Signs or symptoms of abuse and/or No No No neglect since last visit Have you been in the hospital since your No No No last visit? Has dressing in place as prescribed Yes Yes Yes Has compression in place as prescribed Yes Yes Yes Has offloadiing in place as prescribed N/A N/A N/A Experienced any changes in pain level or No No No management Left Footwear Regular Shoe Regular Shoe Right Footwear Regular Shoe Regular Shoe Pain Scale: 0-10 Numeric Is Patient Pain Free? Yes No Yes lle -Description Burning,Aching -Intensity 4 -Duration (hours) Acute -Pain Behavior Withdrawal from Touch -Pain Aggravating Factors ADL's -Alleviating Factors/Interventions Medication -Effectiveness of Alleviating Factor/ Moderately Intervention effective 05/20/24 09:50 WC - Today's Visit Information Type of service Follow-up Visit (Physician/SYSTEM SOFTWARE PROGRAMMER ) Arrival Mode Ambulatory Transfer Assistance None Patient Identification Verified (Name & Yes ) Patient Requires Transmission-Based No Precautions Safety Precautions Vital Signs Temperature (97.8 F-99.1 F) 97.4 F L Temperature Source Temporal Pulse Rate (60-100) 94 Pulse Location Monitor Respiratory Rate (12-18) 18 Respiratory rate source Observation Oxygen Delivery Method Blood Pressure (90/60-120/80) 131/58 H Blood Pressure Mean (mm Hg) 82 Source Monitor Position Semi-Fowlers Blood Pressure Location Left Arm History Since Last Visit- (Skip if this is Patient's initial visit) Have you changed medications since your No last visit? Any new allergies or adverse reactions No Had a fall/change in ADL's that may No increase risk of falls Signs or symptoms of abuse and/or No neglect since last visit Have you been in the hospital since your No last visit? Has dressing in place as prescribed Yes Has compression in place as prescribed Yes Has offloadiing in place as prescribed N/A Experienced any changes in pain level or No management Left Footwear Regular Shoe Right Footwear Regular Shoe Pain Scale: 0-10 Numeric Is Patient Pain Free? Yes lle -Description -Intensity -Duration (hours) -Pain Behavior -Pain Aggravating Factors -Alleviating Factors/Interventions -Effectiveness of Alleviating Factor/ Intervention WC - Nurse 1 - General Ulcer Measurement Start: 04/22/24 09:24 Freq: Status: Active Protocol: Activity Type Activity Date Activity User E-sign Co-sign Detail Recorded Client Recorded Date Recorded By Document 04/22/24 09:24 CP [id number] 04/22/24 09:34 CP Document 05/13/24 09:26 RB [id number] 05/13/24 09:30 RB Document 05/17/24 09:05 KW [id number] 05/17/24 09:14 KW Document 05/20/24 09:50 RB [id number] 05/20/24 09:53 RB 04/22/24 05/13/24 05/17/24 09:24 09:26 09:05 Wound Center Nurse 1 #4- LLE ANTERIOR CLUSTER -Combined with other wound No -Current Size (cm) - Length 1.8 1.8 -Current Size (cm) - Width 3 2 -Current Size (cm) - Depth 0.1 0.1 -Total Square Cm 5.4 3.6 -Photo Taken Yes -Tunneling No -Undermining/Tunneling No -Circular Undermining No -Exudate Amt Medium Medium -Exudate Type Serous Serosanguineous -Wound Margin Distinct, Outline Attached -Granulation Amt Medium (34-66%) Medium (34-66%) -Granulation Quality Red Win[place] -Slough/Fibrin Yes Yes -Necrosis Amt Medium (34-66%) Medium (34-66%) -Necrotic Tissue Type Adherent Slough Adherent Slough -Structure Exposed N/A N/A -Texture (Lety-wound Skin Appearance) Excoriation -Moisture (Ltey-wound Skin Appearance) No Abnormality Assessed -Color (Lety-wound Skin Appearance) Erythema Erythema -Temperature (Lety-wound Skin No Abnormality No Abnormality Appearance) (Pt Warm) (Pt Warm) -Tenderness on Palpation (Lety-wound No No Skin Appearance) -Ulcer Cleansing Soap and Water Wound Cleanser -Foul Odor after Cleansing No -Anesthetic Used 5% Lidocaine 4% Lidocaine Gel Solution Lower Limb Edema Present Right Calf (cm) 39.5 Right Ankle (cm) 28 Left Calf (cm) 39.5 Left Ankle (cm) 29 05/20/24 09:50 Wound Center Nurse 1 #4- LLE ANTERIOR CLUSTER -Combined with other wound No -Current Size (cm) - Length 1.8 -Current Size (cm) - Width 2.3 -Current Size (cm) - Depth 0.1 -Total Square Cm 4.14 -Photo Taken Yes -Tunneling No -Undermining/Tunneling No -Circular Undermining No -Exudate Amt Large -Exudate Type Serosanguineous -Wound Margin Distinct, Outline Attached -Granulation Amt Medium (34-66%) -Granulation Quality Winifred -Slough/Fibrin Yes -Necrosis Amt Small (1-33%) -Necrotic Tissue Type Adherent Slough -Structure Exposed N/A -Texture (Lety-wound Skin Appearance) Assessed -Moisture (Lety-wound Skin Appearance) Dry/Scaly -Color (Lety-wound Skin Appearance) Assessed, Erythema -Temperature (Lety-wound Skin No Abnormality Appearance) (Pt Warm) -Tenderness on Palpation (Lety-wound No Skin Appearance) -Ulcer Cleansing Wound Cleanser -Foul Odor after Cleansing No -Anesthetic Used 5% Lidocaine Gel Lower Limb Edema Present Yes Right Calf (cm) Right Ankle (cm) Left Calf (cm) 39 Left Ankle (cm) 26.5 WC - Nurse 2 - General Ulcer CM Notes Start: 04/22/24 09:24 Freq: Status: Active Protocol: Activity Type Activity Date Activity User E-sign Co-sign Detail Recorded Client Recorded Date Recorded By Document 04/22/24 09:40 [facility] [id number] 04/22/24 09:58 [facility] Document 05/13/24 09:49 [facility] [id number] 05/13/24 09:56 [facility] Document 05/20/24 10:08 [facility] [id number] 05/20/24 10:11 [facility] 04/22/24 05/13/24 05/20/24 09:40 09:49 10:08 Wound Center Nurse 2 #4- LLE ANTERIOR CLUSTER -Time 09:53 09:49 10:08 -Correct Patient Yes Yes Yes -Correct Side, Site, Position Yes Yes Yes -Correct Procedure Yes Yes Yes -Procedure Performed Yes Yes Yes -Type of Procedure Debridement Debridement Debridement -Clinical Debridement Subcutaneous Subcutaneous Subcutaneous -Tissue Removed Subcutaneous Subcutaneous Subcutaneous -Post Debridement (cm) - Length 1.9 1.4 1.7 -Post Debridement (cm) - Width 2.8 1.5 1.5 -Post Debridement (cm) - Depth 0.1 0.1 0.1 -Total Square (Post) (cm) 5.32 2.10 2.55 -Area of Debridement (cm) - Length 1.9 1.4 1.7 -Area of Debridement (cm) - Width 2.8 1.5 1.5 -Total Square (Area) (cm) 5.32 2.10 2.55 -Tunneling No No No -Undermining/Tunneling No No No -Circular Undermining No No No -Wound/Ulcer Outcome Not Healed Not Healed Not Healed -Ulcer Cleansing Rinsed/ Rinsed/ Rinsed/ Irrigated with Irrigated with Irrigated with Saline Saline Saline -Foul Odor after Cleansing No No No -Bioengineered Tissue Yes No No -Type of Bioengineered Tissue Epifix -Expiration Date 11/19/28 -Product Lot Number [id number] -Percent Used 100 -Lot number of Saline Used [id number] -Bleeding Controlled with NA Pressure Pressure -Treatment Response Procedure Procedure Procedure Tolerated Well Tolerated Well Tolerated Well -Debridement - Subq, 1st 20sq cm No Yes Yes -Apply Skin Sub - 1st 25 sq cm - Legs 1 -Epifix (per sq cm) 4 Pain Scale: 0-10 Numeric Is Patient Pain Free? Yes Yes Yes WC - Nurse 3 - General Ulcer D/C NN Start: 04/22/24 09:24 Freq: Status: Active Protocol: Activity Type Activity Date Activity User E-sign Co-sign Detail Recorded Client Recorded Date Recorded By Document 04/22/24 10:10 DL [id number] 04/22/24 10:11 DL Document 05/13/24 10:18 DL [id number] 05/13/24 10:19 DL Document 05/17/24 09:05 KW [id number] 05/17/24 09:14 KW Document 05/20/24 10:37 RB [id number] 05/20/24 10:38 RB 04/22/24 05/13/24 05/17/24 10:10 10:18 09:05 Wound Care Center Nurse 3 #4- LLE ANTERIOR CLUSTER -Ulcer Cleansing Soap and Water Soap and Water -Foul Odor after Cleansing No No No -Primary Dressing Applied Aquacel Extra, NonAdherent Contact Layer -Primary Dressing Applied NonAdherent NonAdherent Contact Layer, Contact Layer, Promogran Promogran Genie Matter Genie Matter -Other Dressing epifix -Primary Dressing Covered/Secured with Dry Gauze & Dry Gauze & Dry Gauze, Roll Gauze, Roll Gauze, Secured with Secured with Secured with Tape Tape Tape -Other Covering ABD -Aquacel Extra 1 -Promogran Genie Matter 1 1 Right -Tubular Bandage Single Layer -Size of Tubigrip Used Size E -Size E ($) 1 Left -Multi-Layered Wrap Application Multi-Layer Comp - Left ($) -Tubular Bandage Single Layer -Size of Tubigrip Used Size E -Size E ($) 1 -Other Hydrocortison johny -Tubular Bandage Single Layer -Size of Tubigrip Used Size E -Size E ($) 1 Treatment Response Procedure Procedure Procedure Tolerated Well Tolerated Well Tolerated Well Vital Signs Temperature (97.8 F-99.1 F) 98.4 F Temperature Source Temporal Pulse Rate (60-100) 96 Pulse Location Monitor Respiratory Rate (12-18) 18 Respiratory rate source Observation Oxygen Delivery Method Room Air Blood Pressure (90/60-120/80) 136/64 H Blood Pressure Mean (mm Hg) 88 Source Monitor Position Sitting Blood Pressure Location Left Arm Pain Scale: 0-10 Numeric Is Patient Pain Free? Yes Yes Yes WC - Visit Discharge Discharge Condition Stable Stable Stable Ambulatory Status Ambulatory Ambulatory Ambulatory Transportation Private Auto Private Auto Private Auto Medication Reconcilliation completed & provided to patient/care provider Clinical Summary of Care Provided Notes: Dressing applied per K Dunn today Facility Type Home Health Orders Sent Yes 05/20/24 10:37 Wound Care Center Nurse 3 #4- LLE ANTERIOR CLUSTER -Ulcer Cleansing Wound Cleanser -Foul Odor after Cleansing -Primary Dressing Applied -Primary Dressing Applied -Other Dressing GENIE -Primary Dressing Covered/Secured with -Other Covering CORTIZONE CREA M TO PERIULCER -Aquacel Extra -Promogran Genie Matter Right -Tubular Bandage -Size of Tubigrip Used -Size E ($) Left -Multi-Layered Wrap Application Multi-Layer Comp - Left ($) -Tubular Bandage -Size of Tubigrip Used -Size E ($) -Other johny -Tubular Bandage -Size of Tubigrip Used -Size E ($) Treatment Response Vital Signs Temperature (97.8 F-99.1 F) Temperature Source Pulse Rate (60-100) Pulse Location Respiratory Rate (12-18) Respiratory rate source Oxygen Delivery Method Blood Pressure (90/60-120/80) Blood Pressure Mean (mm Hg) Source Position Blood Pressure Location Pain Scale: 0-10 Numeric Is Patient Pain Free? Yes WC - Visit Discharge Discharge Condition Stable Ambulatory Status Ambulatory Transportation Private Auto Medication Reconcilliation completed & No provided to patient/care provider Clinical Summary of Care Provided Yes Notes: Facility Type Orders Sent Assessment/Plan Assessment/Plan (1) Non-pressure chronic ulcer of left calf with fat layer exposed: CODE(S): L97.222 - Non-pressure chronic ulcer of left calf with fat layer exposed (2) Venous stasis dermatitis of left lower extremity: CODE(S): I87.2 - Venous insufficiency (chronic) (peripheral) (3) Leg edema: CODE(S): R60.0 - Localized edema PLAN: Plan Patient seen and evaluated Pre-debridement: Lateral LLE cluster: healed; Anterior LLE cluster: 1.5 cm x 1.4cm x 0.1 cm. Multiple areas of superficial skin tear secondary to use of old compression stocking which was inefficient as there is significant edema today versus prior examination. Ulceration was debrided as noted in the clinical panel above. Postdebridement measurement: Lateral LLE cluster remains healed; Anterior LLE cluster: 1.7 cm x 1.5 cm x 0.1 cm. No signs of infection. Genie moistened with hydrogel, 3M compression stocking. Will return on Friday for nurse visit for 3M compression change. She does continue to wear compression stocking to the right lower extremity. There is some reduction in the ulcerations size versus previous visit with improvement in edema and healing of her multiple superficial skin tears. Edema controlled and maintained with compression. She has completed all 10 applications of EpiFix. She is to continue to elevate lower extremities at all times of rest to aid in edema control Recommend continued use of compression stockings once ulcerations have healed. Compression recommended 20 to 30 mmHg. Recommended updating compression stockings to proper sizing/compression. Discussed signs and symptoms of infection. Discussed if she notices increasing redness about the ulcer sites that moves up the leg or if red streaking is noted up the leg, purulent drainage from the wound sites, increasing foul odor from the wound, or if she experiences fever greater than 101 degree accompanied by nausea, vomiting, chills of these are signs of a progressing infection and she should report to the ED to receive IV antibiotics and further evaluation. She is understanding of this today. The following work up and care recommendations were made: Dressing: Genie moistened with hydrogel and 3M compression left lower extremity. Compression stocking 20 to 30 mmHg to knee-high right lower extremity. Wash: Do not get wet Tissue growth optimization: Genie and hydrogel Offload: Compression stockings and elevation of the lower extremities. Vascular: Venous Doppler performed 12/09/2023 notes acute DVT left gastroc vein with chronic changes in the left popliteal vein. Edema: Continue elevation of lower extremities at all times of rest and continue compression stocking 20 to 30 mmHg. Infection: No signs of infection Imaging: Radiographs 12/09/2023 of the right foot demonstrates diffuse arthritis. No signs of infection. Pain: May take extra strength Tylenol for discomfort Host factors: Chronic venous stasis and lower extremity edema. I answered all the patient's questions. To return to the wound healing center in 1 week or call sooner if the patient has any questions or concerns.
--- NOTE | 2024-05-21 11:38 | WC ---
PHOTO 05/21/24 ALVARO
== END 2024-05-21 23:59 | disposition home or self-care (01) ==
LOC: WC 09:30
PROVIDERS: PCP Nurse Practitioner Family; Referring Provider Student in an Organized Health Care Education/Training Program; Visit Provider Student in an Organized Health Care Education/Training Program
DX: I87.332 Chronic venous hypertension (idiopathic) with ulcer and inflammation of left lower extremity (principal); L97.222 Non-pressure chronic ulcer of left calf with fat layer exposed; R60.0 Localized edema; I87.2 Venous insufficiency (chronic) (peripheral)
CPT/HCPCS: 11042; 15271; 29581; 99213; Q4186; G0463

== ENCOUNTER 2024-06-17 09:15 | Outpatient (RCR) | payer MEDICARE, SELFPAY ==
[2024-05-22 00:43] VITALS: BP 131/58; PULSE 94; RESP 18; TEMP 36.3
[2024-05-24 09:03] VITALS: BP 143/48; PULSE 95; RESP 16; TEMP 35.8
[2024-05-27 09:02] VITALS: BP 142/51; PULSE 98; RESP 16; TEMP 36.4
--- NOTE | 2024-05-27 10:01 | PCM.WC.PN ---
History of Present Illness Date of Service: 05/27/24 Chief Complaint: Venous stasis ulceration, chronic venous insufficiency, varicose veins with inflammation and ulceration, venous hypertension with inflammation and ulceration, venous stasis dermatitis - Left lower extremity History of Wound: DAVID PATTON, is a 73 F who presents to [facility] on 12/09/2023 with complaint of generalized weakness and fatigue for at least 4 weeks duration. She was previously diagnosed with hemolytic anemia by Dr. Tay 10 years ago and her weakness feels the same. Examination in the ER demonstrates an anterior left lower extremity ulceration. Patient reports that she does wear compression stockings and unfortunately the left stocking did roll down her leg became stuck causing circumferential ulcerations. She denies going to the wound care center for treatment of the ulcerations, but has been seen there in the past for venous ulcerations by Dr. Burrows. She denied F/C/chills/SOB/fever. Also denies dysuria and hematuria and chest pain. Workup in the ED did demonstrate neutropenia 3.3, thrombocytopenia, and acute kidney injury BUN of 66. Following admission overnight hemoglobin did decrease from 13.3 down to 4.8 and she was transferred to the ICU with hematology follow up and did receive transfusion which did help. Podiatry was following during admission for left lower extremity ulceration and she did undergo selective debridement at that time. Following discharge she was referred to the wound care center for continued follow of her lower extremity ulcerations. Patient states that she is feeling better since leaving the hospital. She currently denies N/V/F/chills. Denies further complaints. Subjective Subjective This is a 74-year-old female who presents to the wound care center today for continued follow-up of a left lower extremity circumferential ulceration secondary to a compression stocking that had rolled down and got stuck. She states the leg looks better and wound is nearing closure. Notes swelling is much improved with compression wrap. Denies constitutional symptoms. Denies further complaints. Objective Data Objective Data Vital Signs: Vital Signs Temp Pulse Resp BP O2 Del Method 97.6 F L 98 16 142/51 H Room Air 05/27/24 09:02 05/27/24 09:02 05/27/24 09:02 05/27/24 09:02 05/24/24 09:03 Oxygen Delivery Method Room Air Physical Exam Const alert, oriented x3 and no apparent distress General Appearance: cooperative HEENT normocephalic Eyes General Eye: normal appearance of both eyes Neck General: normal visual inspection Lymph Lymphatic: no lymphadenopathy noted and no lymphedema noted Resp normal respiratory effort Cardio regular rate and regular rhythm Extremity Extremity Narrative: Vascular: DP and PT pulses palpable right lower extremity, DP weakly palpable left lower extremity, PT palpable left lower extremity. CFT less than 4 seconds to the digits. Normal temperature gradient. Hair growth is absent to digits bilateral. Neurologic: Epicritic sensation intact. No focal deficits noted. Musculoskeletal: Right lower extremity weakness secondary to polio. Left lower extremity muscle strength 5 of 5 age-appropriate. Dermatologic: Left lower extremity demonstrates chronic venous stasis with hemosiderin deposition rubor at the anterior aspect of the lower extremity. There are small healed circumferential pressure ulcerations secondary to compression stocking that had rolled down and got stuck. Ulceration anterior aspect lower extremity demonstrates healthy granular layer. No signs of infection. Right lower extremity grossly normal. Skin no rashes or lesions noted and skin turgor normal General Skin Exam: venous stasis and dermatitis Neuro moves all extremities Debridement Note Debridement Note Wound debrided: Left lower extremity Laterality: Left Wound Grade/Stage: [place] stage I Type of Debridement: Excisional debridement Anesthesia Used: 5% Lidocaine Gel Depth: Down to and including healthy tissue and in the subcutaneous layer Percentage of wound debrided: 100 Instrument Used: 5mm curette Tissue Removed: Fibrous, devitalized subcutaneous, biofilm, slough Severity: Fat Layer Exposed Amount of bleeding with debridement: Mild Bleeding Controlled with: Compression and gauze Patient tolerated procedure: Patient tolerated procedure well Post-Debridement Measurements and Additional Note: Post-Debridement Measurements/Treatment - Nurse 1 - General Ulcer Assessment Start: 05/24/24 09:02 Freq: Status: Active Protocol: [email or web address].[email or web address] Activity Type Activity Date Activity User E-sign Co-sign Detail Recorded Client Recorded Date Recorded By Document 05/24/24 09:03 DL [id number] 05/24/24 09:06 DL Document 05/27/24 09:02 CP [id number] 05/27/24 09:11 CP 05/24/24 05/27/24 09:03 09:02 - Today's Visit Information Type of service Nurse-only Follow-up Visit 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 ) Arrival Mode Ambulatory Ambulatory Transfer Assistance None Patient Identification Verified (Name & Yes ) Patient Requires Transmission-Based No No Precautions Vital Signs Temperature (97.8 F-99.1 F) 96.4 F L 97.6 F L Temperature Source Temporal Temporal Pulse Rate (60-100) 95 98 Pulse Location Monitor Monitor Respiratory Rate (12-18) 16 16 Respiratory rate source Observation Observation Oxygen Delivery Method Room Air Blood Pressure (90/60-120/80) 143/48 H 142/51 H Blood Pressure Mean (mm Hg) 79 81 Source Monitor Monitor Position Sitting Sitting Blood Pressure Location Left Arm Right Arm History Since Last Visit- (Skip if this is Patient's initial visit) Have you changed medications since your No No last visit? Any new allergies or adverse reactions No No Had a fall/change in ADL's that may No No increase risk of falls Signs or symptoms of abuse and/or No No neglect since last visit Have you been in the hospital since your No No last visit? Has dressing in place as prescribed Yes Yes Has compression in place as prescribed Yes Yes Has offloadiing in place as prescribed N/A N/A Experienced any changes in pain level or No No management Left Footwear Regular Shoe Regular Shoe Right Footwear Regular Shoe Regular Shoe Pain Scale: 0-10 Numeric Is Patient Pain Free? Yes Yes WC - Nurse 1 - General Ulcer Measurement Start: 05/24/24 09:02 Freq: Status: Active Protocol: Activity Type Activity Date Activity User E-sign Co-sign Detail Recorded Client Recorded Date Recorded By Document 05/24/24 09:03 DL [id number] 05/24/24 09:06 DL Document 05/27/24 09:02 CP [id number] 05/27/24 09:11 CP 05/24/24 05/27/24 09:03 09:02 Wound Center Nurse 1 #4- LLE ANTERIOR CLUSTER -Current Size (cm) - Length 1.5 -Current Size (cm) - Width 3 -Current Size (cm) - Depth 0.1 -Total Square Cm 4.5 -Exudate Amt Small -Exudate Type Serosanguineous -Wound Margin Flat & Intact -Granulation Amt Large (67-100%) -Granulation Quality Red -Slough/Fibrin Yes -Necrosis Amt Small (1-33%) -Necrotic Tissue Type Adherent Slough -Structure Exposed N/A -Texture (Lety-wound Skin Appearance) No Abnormality -Moisture (Lety-wound Skin Appearance) Dry/Scaly -Color (Lety-wound Skin Appearance) Erythema -Temperature (Lety-wound Skin No Abnormality Appearance) (Pt Warm) -Ulcer Cleansing Soap and Water -Foul Odor after Cleansing No -Anesthetic Used 4% Lidocaine Solution Lower Limb Edema Present Yes Left Calf (cm) 36.3 36.5 Left Ankle (cm) 27 26 WC - Nurse 2 - General Ulcer CM Notes Start: 05/24/24 09:02 Freq: Status: Active Protocol: Activity Type Activity Date Activity User E-sign Co-sign Detail Recorded Client Recorded Date Recorded By Document 05/27/24 09:32 BM [id number] 05/27/24 09:35 BM 05/27/24 09:32 Wound Center Nurse 2 #4- LLE ANTERIOR CLUSTER -Time 09:33 -Correct Patient Yes -Correct Side, Site, Position Yes -Correct Procedure Yes -Procedure Performed Yes -Type of Procedure Debridement -Clinical Debridement Subcutaneous -Tissue Removed Subcutaneous -Post Debridement (cm) - Length 1.3 -Post Debridement (cm) - Width 2 -Post Debridement (cm) - Depth 0.1 -Total Square (Post) (cm) 2.6 -Area of Debridement (cm) - Length 1.3 -Area of Debridement (cm) - Width 2 -Total Square (Area) (cm) 2.6 -Tunneling No -Undermining/Tunneling No -Circular Undermining No -Wound/Ulcer Outcome Not Healed -Ulcer Cleansing Rinsed/ Irrigated with Saline -Foul Odor after Cleansing No -Bioengineered Tissue No -Bleeding Controlled with Pressure -Debridement - Subq, 1st 20sq cm Yes Pain Scale: 0-10 Numeric Is Patient Pain Free? Yes - Nurse 3 - General Ulcer D/C NN Start: 05/24/24 09:02 Freq: Status: Active Protocol: Activity Type Activity Date Activity User E-sign Co-sign Detail Recorded Client Recorded Date Recorded By Document 05/24/24 09:03 DL [id number] 05/24/24 09:06 DL 05/24/24 09:03 Vital Signs Temperature (97.8 F-99.1 F) 96.4 F L Temperature Source Temporal Pulse Rate (60-100) 95 Pulse Location Monitor Respiratory Rate (12-18) 16 Respiratory rate source Observation Oxygen Delivery Method Room Air Blood Pressure (90/60-120/80) 143/48 H Blood Pressure Mean (mm Hg) 79 Source Monitor Position Sitting Blood Pressure Location Left Arm Pain Scale: 0-10 Numeric Is Patient Pain Free? Yes Wound Care Center Nurse 3 #4- LLE ANTERIOR CLUSTER -Ulcer Cleansing Soap and Water -Foul Odor after Cleansing No -Primary Dressing Applied AMD Dressing 4x4 -Other Dressing lila -Primary Dressing Covered/Secured with Dry Gauze & Roll Gauze, Secured with Tape -Other Covering amd to pad achilles. pt c/ o tender w/ wrap -AMD Dressing 4x4 1 Left -Multi-Layered Wrap Application Multi-Layer Comp - Left ($) Treatment Response Procedure Tolerated Well WC - Visit Discharge Discharge Condition Stable Ambulatory Status Ambulatory Transportation Private Auto Assessment/Plan Assessment/Plan (1) Non-pressure chronic ulcer of left calf with fat layer exposed: CODE(S): L97.222 - Non-pressure chronic ulcer of left calf with fat layer exposed (2) Venous stasis dermatitis of left lower extremity: CODE(S): I87.2 - Venous insufficiency (chronic) (peripheral) (3) Leg edema: CODE(S): R60.0 - Localized edema PLAN: Plan Patient seen and evaluated Pre-debridement: Lateral LLE cluster: healed; Anterior LLE cluster: 1.2 cm x 1.9 cm x 0.1 cm. Multiple areas of superficial skin tear secondary to use of old compression stocking which was inefficient as there is significant edema today versus prior examination. Ulceration was debrided as noted in the clinical panel above. Postdebridement measurement: Lateral LLE cluster remains healed; Anterior LLE cluster: 1.3 cm x 2.0 cm x 0.1 cm. No signs of infection. Collagen powder moistened with hydrogel, 3M compression stocking. Will return on Friday for nurse visit for 3M compression change. She does continue to wear compression stocking to the right lower extremity. There is reduction in the ulcerations size versus previous visit with continued improvement in edema. Edema controlled and maintained with compression. She has completed all 10 applications of EpiFix. She is to continue to elevate lower extremities at all times of rest to aid in edema control Recommend continued use of compression stockings once ulcerations have healed. Compression recommended 20 to 30 mmHg. Recommended updating compression stockings to proper sizing/compression. Discussed signs and symptoms of infection. Discussed if she notices increasing redness about the ulcer sites that moves up the leg or if red streaking is noted up the leg, purulent drainage from the wound sites, increasing foul odor from the wound, or if she experiences fever greater than 101 degree accompanied by nausea, vomiting, chills of these are signs of a progressing infection and she should report to the ED to receive IV antibiotics and further evaluation. She is understanding of this today. The following work up and care recommendations were made: Dressing: Collagen powder moistened with hydrogel and 3M compression left lower extremity. Compression stocking 20 to 30 mmHg to knee-high right lower extremity. Wash: Do not get wet Tissue growth optimization: Collagen powder and hydrogel Offload: Compression stockings and elevation of the lower extremities. Vascular: Venous Doppler performed 12/09/2023 notes acute DVT left gastroc vein with chronic changes in the left popliteal vein. Edema: Continue elevation of lower extremities at all times of rest and continue compression stocking 20 to 30 mmHg. Infection: No signs of infection Imaging: Radiographs 12/09/2023 of the right foot demonstrates diffuse arthritis. No signs of infection. Pain: May take extra strength Tylenol for discomfort Host factors: Chronic venous stasis and lower extremity edema. I answered all the patient's questions. To return to the wound healing center in 1 week or call sooner if the patient has any questions or concerns.
[2024-05-31 09:04] VITALS: BP 143/87; PULSE 93; RESP 16; TEMP 36.6
[2024-06-03 09:37] VITALS: BP 139/47; PULSE 91; RESP 18; TEMP 36.3
--- NOTE | 2024-06-03 10:44 | PN.PCM_ITS ---
History of Present Illness Date of Service: 06/03/24 Chief Complaint: Venous stasis ulceration, chronic venous insufficiency, v aricose veins with inflammation and ulceration, venous hypertension with inflammation and ulceration, venous stasis dermatitis - Left lower extremity History of Wound: DAVID PATTON, is a 73 F who presents to [facility] on 12/09/2023 with complaint of generalized weakness and fatigue for at least 4 weeks duration. She was previously diagnosed with hemolytic anemia by Dr. Tay 10 years ago and her weakness feels the same. Examination in the ER demonstrates an anterior left lower extremity ulceration. Patient reports that she does wear compression stockings and unfortunately the left stocking did roll down her leg became stuck causing circumferential ulcerations. She denies going to the wound care center for treatment of the ulcerations, but has been seen there in the past for venous ulcerations by Dr. Burrows. She denied F/C/chills/SOB/fever. Also denies dysuria and hematuria and chest pain. Workup in the ED did demonstrate neutropenia 3.3, thrombocytopenia, and acute kidney injury BUN of 66. Following admission overnight hemoglobin did decrease from 13.3 down to 4.8 and she was transferred to the ICU with hematology follow up and did receive transfusion which did help. Podiatry was following during admission for left lower extremity ulceration and she did undergo selective debridement at that time. Following discharge she was referred to the wound care center for continued follow of her lower extremity ulcerations. Patient states that she is feeling better since leaving the hospital. She currently denies N/V/F/chills. Denies further complaints. Subjective Subjective This is a 74-year-old female who presents to the wound care center today for continued follow-up of a left lower extremity circumferential ulceration secondary to a compression stocking that had rolled down and got stuck. Swelling maintained with compression wrap. She does note ulceration does appear smaller than previous visit. Does state she is having some dryness to the lower extremity with current use of compression wrapping. Denies constitutional symptoms. Denies further complaints. Objective Data Objective Data Vital Signs: Vital Signs Temp Pulse Resp BP O2 Del Method 97.3 F L 91 18 139/47 H Room Air 06/03/24 09:37 06/03/24 09:37 06/03/24 09:37 06/03/24 09:37 05/31/24 09:04 Oxygen Delivery Method Room Air Physical Exam Const alert, oriented x3 and no apparent distress General Appearance: cooperative HEENT normocephalic Eyes General Eye: normal appearance of both eyes Neck General: normal visual inspection Lymph Lymphatic: no lymphadenopathy noted and no lymphedema noted Resp normal respiratory effort Cardio regular rate and regular rhythm Extremity Extremity Narrative: Vascular: DP and PT pulses palpable right lower extremity, DP weakly palpable left lower extremity, PT palpable left lower extremity. CFT less than 4 seconds to the digits. Normal temperature gradient. Hair growth is absent to digits bilateral. Neurologic: Epicritic sensation intact. No focal deficits noted. Musculoskeletal: Right lower extremity weakness secondary to polio. Left lower extremity muscle strength 5 of 5 age-appropriate. Dermatologic: Left lower extremity demonstrates chronic venous stasis with hemosiderin deposition rubor at the anterior aspect of the lower extremity. There are small healed circumferential pressure ulcerations secondary to compression stocking that had rolled down and got stuck. Ulceration anterior aspect lower extremity demonstrates healthy granular layer. No signs of infection. Right lower extremity grossly normal. Skin no rashes or lesions noted and skin turgor normal General Skin Exam: venous stasis and dermatitis Neuro moves all extremities Debridement Note Debridement Note Wound debrided: Left lower extremity Laterality: Left Wound Grade/Stage: Aguila stage I Type of Debridement: Excisional debridement Anesthesia Used: 5% Lidocaine Gel Depth: Down to and including healthy tissue and in the subcutaneous layer Percentage of wound debrided: 100 Instrument Used: 5mm curette Tissue Removed: Fibrous, devitalized subcutaneous, biofilm, slough Severity: Fat Layer Exposed Amount of bleeding with debridement: Mild Bleeding Controlled with: Compression and gauze Patient tolerated procedure: Patient tolerated procedure well Post-Debridement Measurements and Additional Note: Post-Debridement Measurements/Treatment WC - Nurse 1 - General Ulcer Assessment Start: 05/24/24 09:02 Freq: Status: Active Protocol: LOCO Activity Type Activity Date Activity User E-sign Co-sign Detail Recorded Client Recorded Date Recorded By Document 05/24/24 09:03 DL [id number] 05/24/24 09:06 DL Document 05/27/24 09:02 CP [id number] 05/27/24 09:11 CP Document 05/31/24 09:04 BMF [id number] 05/31/24 09:05 BMF Document 06/03/24 09:37 RB [id number] 06/03/24 09:40 RB 05/24/24 05/27/24 05/31/24 09:03 09:02 09:04 - Today's Visit Information Type of service Nurse-only Follow-up Visit Nurse-only Visit (Physician/PHARMACY TECH CUSTOMER SERVICE Visit ) Arrival Mode Ambulatory Ambulatory Ambulatory Transfer Assistance None None Patient Identification Verified (Name & Yes Yes ) Patient Requires Transmission-Based No No No Precautions Vital Signs Temperature (97.8 F-99.1 F) 96.4 F L 97.6 F L 98 F Temperature Source Temporal Temporal Temporal Pulse Rate (60-100) 95 98 93 Pulse Location Monitor Monitor Monitor Respiratory Rate (12-18) 16 16 16 Respiratory rate source Observation Observation Observation Oxygen Delivery Method Room Air Room Air Blood Pressure (90/60-120/80) 143/48 H 142/51 H 143/87 H Blood Pressure Mean (mm Hg) 79 81 105 Source Monitor Monitor Monitor Position Sitting Sitting Sitting Blood Pressure Location Left Arm Right Arm Right Arm History Since Last Visit- (Skip if this is Patient's initial visit) Have you changed medications since your No No No last visit? Any new allergies or adverse reactions No No No Had a fall/change in ADL's that may No No No increase risk of falls Signs or symptoms of abuse and/or No No No neglect since last visit Have you been in the hospital since your No No No last visit? Has dressing in place as prescribed Yes Yes Yes Has compression in place as prescribed Yes Yes Yes Has offloadiing in place as prescribed N/A N/A N/A Experienced any changes in pain level or No No No management Left Footwear Regular Shoe Regular Shoe Regular Shoe Right Footwear Regular Shoe Regular Shoe Regular Shoe Pain Scale: 0-10 Numeric Is Patient Pain Free? Yes Yes Yes 06/03/24 09:37 - Today's Visit Information Type of service Follow-up Visit (Physician/PHARMACY TECH CUSTOMER SERVICE ) Arrival Mode Ambulatory Transfer Assistance None Patient Identification Verified (Name & Yes ) Patient Requires Transmission-Based No Precautions Vital Signs Temperature (97.8 F-99.1 F) 97.3 F L Temperature Source Temporal Pulse Rate (60-100) 91 Pulse Location Monitor Respiratory Rate (12-18) 18 Respiratory rate source Observation Oxygen Delivery Method Blood Pressure (90/60-120/80) 139/47 H Blood Pressure Mean (mm Hg) 77 Source Monitor Position Semi-Fowlers Blood Pressure Location Left Arm History Since Last Visit- (Skip if this is Patient's initial visit) Have you changed medications since your No last visit? Any new allergies or adverse reactions No Had a fall/change in ADL's that may No increase risk of falls Signs or symptoms of abuse and/or No neglect since last visit Have you been in the hospital since your No last visit? Has dressing in place as prescribed Yes Has compression in place as prescribed Yes Has offloadiing in place as prescribed N/A Experienced any changes in pain level or No management Left Footwear Regular Shoe Right Footwear Regular Shoe Pain Scale: 0-10 Numeric Is Patient Pain Free? Yes WC - Nurse 1 - General Ulcer Measurement Start: 05/24/24 09:02 Freq: Status: Active Protocol: Activity Type Activity Date Activity User E-sign Co-sign Detail Recorded Client Recorded Date Recorded By Document 05/24/24 09:03 DL [id number] 05/24/24 09:06 DL Document 05/27/24 09:02 CP [id number] 05/27/24 09:11 CP Document 06/03/24 09:37 RB [id number] 06/03/24 09:40 RB 05/24/24 05/27/24 06/03/24 09:03 09:02 09:37 Wound Center Nurse 1 #4- LLE ANTERIOR CLUSTER -Combined with other wound No -Current Size (cm) - Length 1.5 1 -Current Size (cm) - Width 3 2.9 -Current Size (cm) - Depth 0.1 0.1 -Total Square Cm 4.5 2.9 -Tunneling No -Undermining/Tunneling No -Circular Undermining No -Exudate Amt Small Medium -Exudate Type Serosanguineous Serosanguineous -Wound Margin Flat & Intact Distinct, Outline Attached -Granulation Amt Large (67-100%) Medium (34-66%) -Granulation Quality Red Mineral -Slough/Fibrin Yes Yes -Necrosis Amt Small (1-33%) Medium (34-66%) -Necrotic Tissue Type Adherent Slough Adherent Slough -Structure Exposed N/A N/A -Texture (Lety-wound Skin Appearance) No Abnormality Assessed -Moisture (Lety-wound Skin Appearance) Dry/Scaly Assessed,Dry/ Scaly -Color (Lety-wound Skin Appearance) Erythema Assessed -Temperature (Lety-wound Skin No Abnormality No Abnormality Appearance) (Pt Warm) (Pt Warm) -Tenderness on Palpation (Lety-wound No Skin Appearance) -Ulcer Cleansing Soap and Water Wound Cleanser -Foul Odor after Cleansing No No -Anesthetic Used 4% Lidocaine 5% Lidocaine Solution Gel Lower Limb Edema Present Yes Yes Left Calf (cm) 36.3 36.5 Left Ankle (cm) 27 26 36 Left Foot (cm) 26.2 WC - Nurse 2 - General Ulcer CM Notes Start: 05/24/24 09:02 Freq: Status: Active Protocol: Activity Type Activity Date Activity User E-sign Co-sign Detail Recorded Client Recorded Date Recorded By Document 05/27/24 09:32 [facility] [id number] 05/27/24 09:35 [facility] Document 06/03/24 09:44 [facility] [id number] 06/03/24 09:49 BMF 05/27/24 06/03/24 09:32 09:44 Wound Center Nurse 2 #4- LLE ANTERIOR CLUSTER -Time 09:33 09:47 -Correct Patient Yes Yes -Correct Side, Site, Position Yes Yes -Correct Procedure Yes Yes -Procedure Performed Yes Yes -Type of Procedure Debridement Debridement -Clinical Debridement Subcutaneous Subcutaneous -Tissue Removed Subcutaneous Subcutaneous -Post Debridement (cm) - Length 1.3 1 -Post Debridement (cm) - Width 2 1.5 -Post Debridement (cm) - Depth 0.1 0.1 -Total Square (Post) (cm) 2.6 1.5 -Area of Debridement (cm) - Length 1.3 1 -Area of Debridement (cm) - Width 2 1.5 -Total Square (Area) (cm) 2.6 1.5 -Tunneling No No -Undermining/Tunneling No No -Circular Undermining No No -Wound/Ulcer Outcome Not Healed Not Healed -Ulcer Cleansing Rinsed/ Rinsed/ Irrigated with Irrigated with Saline Saline -Foul Odor after Cleansing No No -Bioengineered Tissue No No -Bleeding Controlled with Pressure Pressure -Treatment Response Procedure Tolerated Well -Debridement - Subq, 1st 20sq cm Yes Yes Pain Scale: 0-10 Numeric Is Patient Pain Free? Yes Yes WC - Nurse 3 - General Ulcer D/C NN Start: 05/24/24 09:02 Freq: Status: Active Protocol: Activity Type Activity Date Activity User E-sign Co-sign Detail Recorded Client Recorded Date Recorded By Document 05/24/24 09:03 DL [id number] 05/24/24 09:06 DL Document 05/27/24 10:15 CP [id number] 05/27/24 10:17 CP Document 05/31/24 09:04 BMF [id number] 05/31/24 09:05 BMF Document 06/03/24 10:22 RB [id number] 06/03/24 10:24 RB 05/24/24 05/27/24 05/31/24 09:03 10:15 09:04 Vital Signs Temperature (97.8 F-99.1 F) 96.4 F L 98 F Temperature Source Temporal Temporal Pulse Rate (60-100) 95 93 Pulse Location Monitor Monitor Respiratory Rate (12-18) 16 16 Respiratory rate source Observation Observation Oxygen Delivery Method Room Air Room Air Blood Pressure (90/60-120/80) 143/48 H 143/87 H Blood Pressure Mean (mm Hg) 79 105 Source Monitor Monitor Position Sitting Sitting Blood Pressure Location Left Arm Right Arm Pain Scale: 0-10 Numeric Is Patient Pain Free? Yes Yes Yes Teaching: Wound Center Compression Wraps & Stockings -Person Taught -Teaching Method -Response to teaching Wound Care Center Nurse 3 #4- LLE ANTERIOR CLUSTER -Ulcer Cleansing Soap and Water Rinsed/ Soap and Water Irrigated with Saline -Foul Odor after Cleansing No No -Primary Dressing Applied AMD Dressing C Hydrogel ($), Collagen Powder 4x4 Collagen Powder ($) ($) -Other Dressing lila puracol powder abd -Primary Dressing Covered/Secured with Dry Gauze & Dry Gauze & Roll Gauze, Roll Gauze Secured with Tape -Other Covering amd to pad hydrogel achilles. pt c/ o tender w/ wrap -AMD Dressing 4x4 1 Right -Other Left -Lotion applied to leg before Yes compression wrap -Multi-Layered Wrap Application Multi-Layer Multi-Layer Multi-Layer Comp - Left ($) Comp - Left ($) Comp - Left ($) Treatment Response Procedure Procedure Tolerated Well Tolerated Well WC - Visit Discharge Discharge Condition Stable Stable Stable Ambulatory Status Ambulatory Ambulatory Ambulatory Transportation Private Auto Private Auto Private Auto Medication Reconcilliation completed & provided to patient/care provider Clinical Summary of Care Provided Yes 06/03/24 10:22 Vital Signs Temperature (97.8 F-99.1 F) Temperature Source Pulse Rate (60-100) Pulse Location Respiratory Rate (12-18) Respiratory rate source Oxygen Delivery Method Blood Pressure (90/60-120/80) Blood Pressure Mean (mm Hg) Source Position Blood Pressure Location Pain Scale: 0-10 Numeric Is Patient Pain Free? Yes Teaching: Wound Center Compression Wraps & Stockings -Person Taught Patient -Teaching Method Discussion, Demonstration -Response to teaching Verbalize Understanding Wound Care Center Nurse 3 #4- LLE ANTERIOR CLUSTER -Ulcer Cleansing Rinsed/ Irrigated with Saline -Foul Odor after Cleansing -Primary Dressing Applied -Other Dressing purochol/ hydrogel -Primary Dressing Covered/Secured with -Other Covering -AMD Dressing 4x4 Right -Other single layer tubigrip/ circaid applied but too large will let doctor know Left -Lotion applied to leg before compression wrap -Multi-Layered Wrap Application Unna Boot - Left ($) Treatment Response Procedure Tolerated Well WC - Visit Discharge Discharge Condition Stable Ambulatory Status Ambulatory Transportation Private Auto Medication Reconcilliation completed & No provided to patient/care provider Clinical Summary of Care Provided Yes Assessment/Plan Assessment/Plan (1) Non-pressure chronic ulcer of left calf with fat layer exposed: CODE(S): L97.222 - Non-pressure chronic ulcer of left calf with fat layer exposed (2) Venous stasis dermatitis of left lower extremity: CODE(S): I87.2 - Venous insufficiency (chronic) (peripheral) (3) Leg edema: CODE(S): R60.0 - Localized edema PLAN: Plan Patient seen and evaluated Pre-debridement: Lateral LLE cluster: healed; Anterior LLE cluster: 0.9 cm x 1.4 cm x 0.1 cm. Ulceration was debrided as noted in the clinical panel above. Postdebridement measurement: Lateral LLE cluster remains healed; Anterior LLE cluster: 1.0 cm x 1.5 cm x 0.1 cm. No signs of infection. Collagen powder moistened with hydrogel, Unna boot compression stocking applied to lower extremity to improve skin hydration and decrease irritation. Will return on Friday for nurse visit for Unna boot change. She does continue to wear compression stocking to the right lower extremity and will bolster with Juxtalite compression. There is reduction in the ulcerations size versus previous visit with continued improvement in edema. Edema controlled and maintained with compression. She has completed all 10 applications of EpiFix. She is to continue to elevate lower extremities at all times of rest to aid in edema control Recommend continued use of compression stockings once ulcerations have healed. Compression recommended 20 to 30 mmHg. Recommended updating compression stockings to proper sizing/compression. Discussed signs and symptoms of infection. Discussed if she notices increasing redness about the ulcer sites that moves up the leg or if red streaking is noted up the leg, purulent drainage from the wound sites, increasing foul odor from the wound, or if she experiences fever greater than 101 degree accompanied by nausea, vomiting, chills of these are signs of a progressing infection and she should report to the ED to receive IV antibiotics and further evaluation. She is understanding of this today. The following work up and care recommendations were made: Dressing: Collagen powder moistened with hydrogel and Unna boot left lower extremity. Compression stocking 20 to 30 mmHg to knee-high right lower extremity. Wash: Do not get wet Tissue growth optimization: Collagen powder and hydrogel Offload: Compression stockings and elevation of the lower extremities. Vascular: Venous Doppler performed 12/09/2023 notes acute DVT left gastroc vein with chronic changes in the left popliteal vein. Edema: Continue elevation of lower extremities at all times of rest and continue compression stocking 20 to 30 mmHg. Infection: No signs of infection Imaging: Radiographs 12/09/2023 of the right foot demonstrates diffuse arthritis. No signs of infection. Pain: May take extra strength Tylenol for discomfort Host factors: Chronic venous stasis and lower extremity edema. I answered all the patient's questions. To return to the wound healing center in 1 week or call sooner if the patient has any questions or concerns.
[2024-06-07 09:03] VITALS: BP 115/57; PULSE 96; RESP 18; TEMP 36.6
[2024-06-10 09:29] VITALS: BP 132/54; PULSE 82; RESP 16; TEMP 36.6
--- NOTE | 2024-06-10 12:32 | PCM.WC.PN ---
History of Present Illness Date of Service: 06/10/24 Chief Complaint: Venous stasis ulceration, chronic venous insufficiency, varicose veins with inflammation and ulceration, venous hypertension with inflammation and ulceration, venous stasis dermatitis - Left lower extremity History of Wound: DAVID PATTON, is a 73 F who presents to [facility] on 12/09/2023 with complaint of generalized weakness and fatigue for at least 4 weeks duration. She was previously diagnosed with hemolytic anemia by Dr. Tay 10 years ago and her weakness feels the same. Examination in the ER demonstrates an anterior left lower extremity ulceration. Patient reports that she does wear compression stockings and unfortunately the left stocking did roll down her leg became stuck causing circumferential ulcerations. She denies going to the wound care center for treatment of the ulcerations, but has been seen there in the past for venous ulcerations by Dr. Burrows. She denied F/C/chills/SOB/fever. Also denies dysuria and hematuria and chest pain. Workup in the ED did demonstrate neutropenia 3.3, thrombocytopenia, and acute kidney injury BUN of 66. Following admission overnight hemoglobin did decrease from 13.3 down to 4.8 and she was transferred to the ICU with hematology follow up and did receive transfusion which did help. Podiatry was following during admission for left lower extremity ulceration and she did undergo selective debridement at that time. Following discharge she was referred to the wound care center for continued follow of her lower extremity ulcerations. Patient states that she is feeling better since leaving the hospital. She currently denies N/V/F/chills. Denies further complaints. Subjective Subjective This is a 74-year-old female who presents to the wound care center today for continued follow-up of a left lower extremity circumferential ulceration secondary to a compression stocking that had rolled down and got stuck. Swelling maintained with compression wrap. She does note ulceration continues to get smaller than previous visit. Reports her juxta lite compression wrap did not properly fit despite proper sizing ordered. Denies constitutional symptoms. Denies further complaints. Objective Data Objective Data Vital Signs: Vital Signs Temp Pulse Resp BP O2 Del Method 97.8 F 82 16 132/54 H Room Air 06/10/24 09:29 06/10/24 09:29 06/10/24 09:29 06/10/24 09:29 06/10/24 09:29 Oxygen Delivery Method Room Air Physical Exam Const alert, oriented x3 and no apparent distress General Appearance: cooperative HEENT normocephalic Eyes General Eye: normal appearance of both eyes Neck General: normal visual inspection Lymph Lymphatic: no lymphadenopathy noted and no lymphedema noted Resp normal respiratory effort Cardio regular rate and regular rhythm Extremity Extremity Narrative: Vascular: DP and PT pulses palpable right lower extremity, DP weakly palpable left lower extremity, PT palpable left lower extremity. CFT less than 4 seconds to the digits. Normal temperature gradient. Hair growth is absent to digits bilateral. Neurologic: Epicritic sensation intact. No focal deficits noted. Musculoskeletal: Right lower extremity weakness secondary to polio. Left lower extremity muscle strength 5 of 5 age-appropriate. Dermatologic: Left lower extremity demonstrates chronic venous stasis with hemosiderin deposition rubor at the anterior aspect of the lower extremity. There are small healed circumferential pressure ulcerations secondary to compression stocking that had rolled down and got stuck. Ulceration anterior aspect lower extremity demonstrates healthy granular layer. No signs of infection. Right lower extremity grossly normal. Skin no rashes or lesions noted and skin turgor normal General Skin Exam: venous stasis and dermatitis Neuro moves all extremities Debridement Note Debridement Note Wound debrided: Left lower extremity Laterality: Left Wound Grade/Stage: [place] stage I Type of Debridement: Excisional debridement Anesthesia Used: 5% Lidocaine Gel Depth: Down to and including healthy tissue and in the subcutaneous layer Percentage of wound debrided: 100 Instrument Used: 5mm curette Tissue Removed: Fibrous, devitalized subcutaneous, biofilm, slough Severity: Fat Layer Exposed Amount of bleeding with debridement: Mild Bleeding Controlled with: Compression and gauze Patient tolerated procedure: Patient tolerated procedure well Post-Debridement Measurements and Additional Note: Post-Debridement Measurements/Treatment - Nurse 1 - General Ulcer Assessment Start: 05/24/24 09:02 Freq: Status: Active Protocol: LOCO Activity Type Activity Date Activity User E-sign Co-sign Detail Recorded Client Recorded Date Recorded By Document 05/24/24 09:03 DL [id number] 05/24/24 09:06 DL Document 05/27/24 09:02 CP [id number] 05/27/24 09:11 CP Document 05/31/24 09:04 BMF [id number] 05/31/24 09:05 BMF Document 06/03/24 09:37 RB [id number] 06/03/24 09:40 RB Document 06/07/24 09:03 KW [id number] 06/07/24 09:06 KW Document 06/10/24 09:29 GM [id number] 06/10/24 09:40 GM 05/24/24 05/27/24 05/31/24 09:03 09:02 09:04 - Today's Visit Information Type of service Nurse-only Follow-up Visit Nurse-only Visit (Physician/FEATURES REPORTER Visit ) Arrival Mode Ambulatory Ambulatory Ambulatory Transfer Assistance None None Patient Identification Verified (Name & Yes Yes ) Patient Requires Transmission-Based No No No Precautions Vital Signs Temperature (97.8 F-99.1 F) 96.4 F L 97.6 F L 98 F Temperature Source Temporal Temporal Temporal Pulse Rate (60-100) 95 98 93 Pulse Location Monitor Monitor Monitor Respiratory Rate (12-18) 16 16 16 Respiratory rate source Observation Observation Observation Oxygen Delivery Method Room Air Room Air Blood Pressure (90/60-120/80) 143/48 H 142/51 H 143/87 H Blood Pressure Mean (mm Hg) 79 81 105 Source Monitor Monitor Monitor Position Sitting Sitting Sitting Blood Pressure Location Left Arm Right Arm Right Arm History Since Last Visit- (Skip if this is Patient's initial visit) Have you changed medications since your No No No last visit? Any new allergies or adverse reactions No No No Had a fall/change in ADL's that may No No No increase risk of falls Signs or symptoms of abuse and/or No No No neglect since last visit Have you been in the hospital since your No No No last visit? Has dressing in place as prescribed Yes Yes Yes Has compression in place as prescribed Yes Yes Yes Has offloadiing in place as prescribed N/A N/A N/A Experienced any changes in pain level or No No No management Left Footwear Regular Shoe Regular Shoe Regular Shoe Right Footwear Regular Shoe Regular Shoe Regular Shoe Pain Scale: 0-10 Numeric Is Patient Pain Free? Yes Yes Yes 06/03/24 06/07/24 06/10/24 09:37 09:03 09:29 - Today's Visit Information Type of service Follow-up Visit Nurse-only Follow-up Visit (Physician/FEATURES REPORTER Visit (Physician/FEATURES REPORTER ) ) Arrival Mode Ambulatory Ambulatory Ambulatory Transfer Assistance None None Patient Identification Verified (Name & Yes Yes Yes ) Patient Requires Transmission-Based No No Precautions Vital Signs Temperature (97.8 F-99.1 F) 97.3 F L 97.9 F 97.8 F Temperature Source Temporal Temporal Temporal Pulse Rate (60-100) 91 96 82 Pulse Location Monitor Monitor Monitor Respiratory Rate (12-18) 18 18 16 Respiratory rate source Observation Observation Observation Oxygen Delivery Method Room Air Room Air Blood Pressure (90/60-120/80) 139/47 H 115/57 L 132/54 H Blood Pressure Mean (mm Hg) 77 76 80 Source Monitor Monitor Monitor Position Semi-Fowlers Semi-Fowlers Sitting Blood Pressure Location Left Arm Left Arm Right Arm History Since Last Visit- (Skip if this is Patient's initial visit) Have you changed medications since your No No No last visit? Any new allergies or adverse reactions No No No Had a fall/change in ADL's that may No No No increase risk of falls Signs or symptoms of abuse and/or No No No neglect since last visit Have you been in the hospital since your No No No last visit? Has dressing in place as prescribed Yes Yes Yes Has compression in place as prescribed Yes Yes Yes Has offloadiing in place as prescribed N/A N/A N/A Experienced any changes in pain level or No No No management Left Footwear Regular Shoe Regular Shoe Regular Shoe Right Footwear Regular Shoe Regular Shoe Pain Scale: 0-10 Numeric Is Patient Pain Free? Yes Yes Yes WC - Nurse 1 - General Ulcer Measurement Start: 05/24/24 09:02 Freq: Status: Active Protocol: Activity Type Activity Date Activity User E-sign Co-sign Detail Recorded Client Recorded Date Recorded By Document 05/24/24 09:03 DL [id number] 05/24/24 09:06 DL Document 05/27/24 09:02 CP [id number] 05/27/24 09:11 CP Document 06/03/24 09:37 RB [id number] 06/03/24 09:40 RB Document 06/07/24 09:06 KW [id number] 06/07/24 09:06 KW Document 06/10/24 09:29 GM [id number] 06/10/24 09:40 GM 05/24/24 05/27/24 06/03/24 09:03 09:02 09:37 Wound Center Nurse 1 #4- LLE ANTERIOR CLUSTER -Combined with other wound No -Current Size (cm) - Length 1.5 1 -Current Size (cm) - Width 3 2.9 -Current Size (cm) - Depth 0.1 0.1 -Total Square Cm 4.5 2.9 -Photo Taken -Epithelialization -Tunneling No -Undermining/Tunneling No -Circular Undermining No -Change in Wound Grade/Stage -Exudate Amt Small Medium -Exudate Type Serosanguineous Serosanguineous -Wound Margin Flat & Intact Distinct, Outline Attached -Granulation Amt Large (67-100%) Medium (34-66%) -Granulation Quality [place] -Slough/Fibrin Yes Yes -Necrosis Amt Small (1-33%) Medium (34-66%) -Necrotic Tissue Type Adherent Slough Adherent Slough -Structure Exposed N/A N/A -Texture (Lety-wound Skin Appearance) No Abnormality Assessed -Moisture (Lety-wound Skin Appearance) Dry/Scaly Assessed,Dry/ Scaly -Color (Lety-wound Skin Appearance) Erythema Assessed -Temperature (Lety-wound Skin No Abnormality No Abnormality Appearance) (Pt Warm) (Pt Warm) -Tenderness on Palpation (Lety-wound No Skin Appearance) -Ulcer Cleansing Soap and Water Wound Cleanser -Foul Odor after Cleansing No No -Anesthetic Used 4% Lidocaine 5% Lidocaine Solution Gel Lower Limb Edema Present Yes Yes Left Calf (cm) 36.3 36.5 Left Ankle (cm) 27 26 36 Left Foot (cm) 26.2 06/07/24 06/10/24 09:06 09:29 Wound Center Nurse 1 #4- LLE ANTERIOR CLUSTER -Combined with other wound -Current Size (cm) - Length 0.5 -Current Size (cm) - Width 1.2 -Current Size (cm) - Depth 0.1 -Total Square Cm 0.60 -Photo Taken No -Epithelialization Medium 34-66% -Tunneling No -Undermining/Tunneling No -Circular Undermining No -Change in Wound Grade/Stage No -Exudate Amt Medium -Exudate Type Yellow/Green -Wound Margin Distinct, Outline Attached -Granulation Amt Large (67-100%) -Granulation Quality Red -Slough/Fibrin No -Necrosis Amt -Necrotic Tissue Type -Structure Exposed -Texture (Lety-wound Skin Appearance) Assessed -Moisture (Lety-wound Skin Appearance) Assessed -Color (Lety-wound Skin Appearance) Assessed, Erythema -Temperature (Lety-wound Skin No Abnormality Appearance) (Pt Warm) -Tenderness on Palpation (Lety-wound Skin Appearance) -Ulcer Cleansing Soap and Water -Foul Odor after Cleansing No -Anesthetic Used 5% Lidocaine Gel Lower Limb Edema Present No Left Calf (cm) 36.5 36.4 Left Ankle (cm) 26.6 26.8 Left Foot (cm) WC - Nurse 2 - General Ulcer CM Notes Start: 05/24/24 09:02 Freq: Status: Active Protocol: Activity Type Activity Date Activity User E-sign Co-sign Detail Recorded Client Recorded Date Recorded By Document 05/27/24 09:32 [facility] [id number] 05/27/24 09:35 [facility] Document 06/03/24 09:44 [facility] [id number] 06/03/24 09:49 BM Document 06/10/24 10:25 [facility] [id number] 06/10/24 10:29 BMF 05/27/24 06/03/24 06/10/24 09:32 09:44 10:25 Wound Center Nurse 2 #4- LLE ANTERIOR CLUSTER -Time 09:33 09:47 10:26 -Correct Patient Yes Yes Yes -Correct Side, Site, Position Yes Yes Yes -Correct Procedure Yes Yes Yes -Procedure Performed Yes Yes Yes -Type of Procedure Debridement Debridement Debridement -Clinical Debridement Subcutaneous Subcutaneous Subcutaneous -Tissue Removed Subcutaneous Subcutaneous Subcutaneous -Post Debridement (cm) - Length 1.3 1 0.5 -Post Debridement (cm) - Width 2 1.5 0.8 -Post Debridement (cm) - Depth 0.1 0.1 0.1 -Total Square (Post) (cm) 2.6 1.5 0.40 -Area of Debridement (cm) - Length 1.3 1 0.5 -Area of Debridement (cm) - Width 2 1.5 0.8 -Total Square (Area) (cm) 2.6 1.5 0.40 -Tunneling No No No -Undermining/Tunneling No No No -Circular Undermining No No No -Wound/Ulcer Outcome Not Healed Not Healed Not Healed -Ulcer Cleansing Rinsed/ Rinsed/ Rinsed/ Irrigated with Irrigated with Irrigated with Saline Saline Saline -Foul Odor after Cleansing No No No -Bioengineered Tissue No No No -Bleeding Controlled with Pressure Pressure Pressure -Treatment Response Procedure Procedure Tolerated Well Tolerated Well -Debridement - Subq, 1st 20sq cm Yes Yes Yes Pain Scale: 0-10 Numeric Is Patient Pain Free? Yes Yes Yes WC - Nurse 3 - General Ulcer D/C NN Start: 05/24/24 09:02 Freq: Status: Active Protocol: Activity Type Activity Date Activity User E-sign Co-sign Detail Recorded Client Recorded Date Recorded By Document 05/24/24 09:03 DL [id number] 05/24/24 09:06 DL Document 05/27/24 10:15 CP [id number] 05/27/24 10:17 CP Document 05/31/24 09:04 BMF [id number] 05/31/24 09:05 BMF Document 06/03/24 10:22 RB [id number] 06/03/24 10:24 RB Document 06/07/24 09:03 KW [id number] 06/07/24 09:06 KW Document 06/10/24 10:45 GM [id number] 06/10/24 10:45 GM 05/24/24 05/27/24 05/31/24 09:03 10:15 09:04 Vital Signs Temperature (97.8 F-99.1 F) 96.4 F L 98 F Temperature Source Temporal Temporal Pulse Rate (60-100) 95 93 Pulse Location Monitor Monitor Respiratory Rate (12-18) 16 16 Respiratory rate source Observation Observation Oxygen Delivery Method Room Air Room Air Blood Pressure (90/60-120/80) 143/48 H 143/87 H Blood Pressure Mean (mm Hg) 79 105 Source Monitor Monitor Position Sitting Sitting Blood Pressure Location Left Arm Right Arm Pain Scale: 0-10 Numeric Is Patient Pain Free? Yes Yes Yes Teaching: Wound Center Compression Wraps & Stockings -Person Taught -Teaching Method -Response to teaching Wound Care Center Nurse 3 #4- LLE ANTERIOR CLUSTER -Ulcer Cleansing Soap and Water Rinsed/ Soap and Water Irrigated with Saline -Foul Odor after Cleansing No No -Primary Dressing Applied AMD Dressing C Hydrogel, Collagen Powder 4x4 Collagen Powder -Other Dressing lila puracol powder abd -Primary Dressing Covered/Secured with Dry Gauze & Dry Gauze & Roll Gauze, Roll Gauze Secured with Tape -Other Covering amd to pad hydrogel achilles. pt c/ o tender w/ wrap -AMD Dressing 4x4 1 Right -Other Left -Lotion applied to leg before Yes compression wrap -Multi-Layered Wrap Application Multi-Layer Multi-Layer Multi-Layer Comp - Left ($) Comp - Left ($) Comp - Left ($) Treatment Response Procedure Procedure Tolerated Well Tolerated Well WC - Visit Discharge Discharge Condition Stable Stable Stable Ambulatory Status Ambulatory Ambulatory Ambulatory Transportation [employer] Medication Reconcilliation completed & provided to patient/care provider Clinical Summary of Care Provided Yes #4- LLE ANTERIOR CLUSTER -Ulcer Cleansing -Foul Odor after Cleansing -Wound Comment(s) Left -Lotion applied to leg before compression wrap -Multi-Layered Wrap Application 06/03/24 06/07/24 06/10/24 10:22 09:03 10:45 Vital Signs Temperature (97.8 F-99.1 F) 97.9 F Temperature Source Temporal Pulse Rate (60-100) 96 Pulse Location Monitor Respiratory Rate (12-18) 18 Respiratory rate source Observation Oxygen Delivery Method Room Air Blood Pressure (90/60-120/80) 115/57 L Blood Pressure Mean (mm Hg) 76 Source Monitor Position Semi-Fowlers Blood Pressure Location Left Arm Pain Scale: 0-10 Numeric Is Patient Pain Free? Yes Yes Yes Teaching: Wound Center Compression Wraps & Stockings -Person Taught Patient -Teaching Method Discussion, Demonstration -Response to teaching Verbalize Understanding Wound Care Center Nurse 3 #4- LLE ANTERIOR CLUSTER -Ulcer Cleansing Rinsed/ Soap and Water Irrigated with Saline -Foul Odor after Cleansing -Primary Dressing Applied -Other Dressing purochol/ purachol powder hydrogel topped with hydrogel -Primary Dressing Covered/Secured with -Other Covering -AMD Dressing 4x4 Right -Other single layer tubigrip/ circaid applied but too large will let doctor know Left -Lotion applied to leg before compression wrap -Multi-Layered Wrap Application Unna Boot - Unna Boot - Left ($) Left ($) Treatment Response Procedure Tolerated Well WC - Visit Discharge Discharge Condition Stable Stable Stable Ambulatory Status Ambulatory Ambulatory Ambulatory Transportation [employer] Medication Reconcilliation completed & No No provided to patient/care provider Clinical Summary of Care Provided Yes Yes #4- LLE ANTERIOR CLUSTER -Ulcer Cleansing Not Cleansed -Foul Odor after Cleansing No -Wound Comment(s) used her supplies Left -Lotion applied to leg before No compression wrap -Multi-Layered Wrap Application Unna Boot - Left ($) Assessment/Plan Assessment/Plan (1) Non-pressure chronic ulcer of left calf with fat layer exposed: CODE(S): L97.222 - Non-pressure chronic ulcer of left calf with fat layer exposed (2) Venous stasis dermatitis of left lower extremity: CODE(S): I87.2 - Venous insufficiency (chronic) (peripheral) (3) Leg edema: CODE(S): R60.0 - Localized edema PLAN: Plan Patient seen and evaluated Pre-debridement: Lateral LLE cluster: healed; Anterior LLE cluster: 0.4 cm x 0.7 cm x 0.1 cm. Ulceration was debrided as noted in the clinical panel above. Postdebridement measurement: Lateral LLE cluster remains healed; Anterior LLE cluster: 0.5 cm x 0.8 cm x 0.1 cm. No signs of infection. Collagen powder moistened with hydrogel, Unna boot compression stocking applied to lower extremity to improve skin hydration and decrease irritation. Will return on Friday for nurse visit for Unna boot change. She does continue to wear compression stocking to the right lower extremity and will bolster with Juxtalite compression. There is reduction in the ulcerations size versus previous visit with continued improvement in edema. Edema controlled and maintained with compression. She has completed all 10 applications of EpiFix. She is to continue to elevate lower extremities at all times of rest to aid in edema control Recommend continued use of compression stockings once ulcerations have healed. Compression recommended 20 to 30 mmHg. Recommended updating compression stockings to proper sizing/compression. Discussed signs and symptoms of infection. Discussed if she notices increasing redness about the ulcer sites that moves up the leg or if red streaking is noted up the leg, purulent drainage from the wound sites, increasing foul odor from the wound, or if she experiences fever greater than 101 degree accompanied by nausea, vomiting, chills of these are signs of a progressing infection and she should report to the ED to receive IV antibiotics and further evaluation. She is understanding of this today. The following work up and care recommendations were made: Dressing: Collagen powder moistened with hydrogel and Unna boot left lower extremity. Compression stocking 20 to 30 mmHg to knee-high right lower extremity. Wash: Do not get wet Tissue growth optimization: Collagen powder and hydrogel Offload: Compression stockings and elevation of the lower extremities. Vascular: Venous Doppler performed 12/09/2023 notes acute DVT left gastroc vein with chronic changes in the left popliteal vein. Edema: Continue elevation of lower extremities at all times of rest and continue compression stocking 20 to 30 mmHg. Infection: No signs of infection Imaging: Radiographs 12/09/2023 of the right foot demonstrates diffuse arthritis. No signs of infection. Pain: May take extra strength Tylenol for discomfort Host factors: Chronic venous stasis and lower extremity edema. I answered all the patient's questions. To return to the wound healing center in 1 week or call sooner if the patient has any questions or concerns.
[2024-06-14 08:17] VITALS: BP 149/34; PULSE 94; RESP 16; TEMP 37
[2024-06-17 09:31] VITALS: BP 135/43; PULSE 85; RESP 18; TEMP 36.5
--- NOTE | 2024-06-17 13:06 | PCM.WC.PN ---
History of Present Illness Date of Service: 06/17/24 Chief Complaint: Venous stasis ulceration, chronic venous insufficiency, varicose veins with inflammation and ulceration, venous hypertension with inflammation and ulceration, venous stasis dermatitis - Left lower extremity History of Wound: DAVID PATTON, is a 73 F who presents to [facility] on 12/09/2023 with complaint of generalized weakness and fatigue for at least 4 weeks duration. She was previously diagnosed with hemolytic anemia by Dr. Tay 10 years ago and her weakness feels the same. Examination in the ER demonstrates an anterior left lower extremity ulceration. Patient reports that she does wear compression stockings and unfortunately the left stocking did roll down her leg became stuck causing circumferential ulcerations. She denies going to the wound care center for treatment of the ulcerations, but has been seen there in the past for venous ulcerations by Dr. Burrows. She denied F/C/chills/SOB/fever. Also denies dysuria and hematuria and chest pain. Workup in the ED did demonstrate neutropenia 3.3, thrombocytopenia, and acute kidney injury BUN of 66. Following admission overnight hemoglobin did decrease from 13.3 down to 4.8 and she was transferred to the ICU with hematology follow up and did receive transfusion which did help. Podiatry was following during admission for left lower extremity ulceration and she did undergo selective debridement at that time. Following discharge she was referred to the wound care center for continued follow of her lower extremity ulcerations. Patient states that she is feeling better since leaving the hospital. She currently denies N/V/F/chills. Denies further complaints. Subjective Subjective This is a 74-year-old female who presents to the wound care center today for continued follow-up of a left lower extremity circumferential ulceration secondary to a compression stocking that had rolled down and got stuck. Swelling maintained with compression wrap. She believes ulceration is healed today. Reports her juxta lite compression wrap was reordered and does fit correctly today. Denies constitutional symptoms. Denies further complaints. Objective Data Objective Data Vital Signs: Vital Signs Temp Pulse Resp BP O2 Del Method 97.7 F L 85 18 135/43 H Room Air 06/17/24 09:31 06/17/24 09:31 06/17/24 09:31 06/17/24 09:31 06/17/24 09:31 Oxygen Delivery Method Room Air Physical Exam Const alert, oriented x3 and no apparent distress General Appearance: cooperative HEENT normocephalic Eyes General Eye: normal appearance of both eyes Neck General: normal visual inspection Lymph Lymphatic: no lymphadenopathy noted and no lymphedema noted Resp normal respiratory effort Cardio regular rate and regular rhythm Extremity Extremity Narrative: Vascular: DP and PT pulses palpable right lower extremity, DP weakly palpable left lower extremity, PT palpable left lower extremity. CFT less than 4 seconds to the digits. Normal temperature gradient. Hair growth is absent to digits bilateral. Neurologic: Epicritic sensation intact. No focal deficits noted. Musculoskeletal: Right lower extremity weakness secondary to polio. Left lower extremity muscle strength 5 of 5 age-appropriate. Dermatologic: Left lower extremity demonstrates chronic venous stasis with hemosiderin deposition rubor at the anterior aspect of the lower extremity. There are small healed circumferential pressure ulcerations secondary to compression stocking that had rolled down and got stuck, which have healed. Ulceration anterior aspect lower extremity has healed. No signs of infection. Right lower extremity grossly normal. Skin no rashes or lesions noted and skin turgor normal General Skin Exam: venous stasis and dermatitis Neuro moves all extremities Debridement Note Debridement Note No debridement was completed: No debridement was completed today Post-Debridement Measurements and Additional Note: Post-Debridement Measurements/Treatment WC - Nurse 1 - General Ulcer Assessment Start: 05/24/24 09:02 Freq: Status: Active Protocol: LOCO Activity Type Activity Date Activity User E-sign Co-sign Detail Recorded Client Recorded Date Recorded By Document 05/24/24 09:03 DL [id number] 05/24/24 09:06 DL Document 05/27/24 09:02 CP [id number] 05/27/24 09:11 CP Document 05/31/24 09:04 BMF [id number] 05/31/24 09:05 BMF Document 06/03/24 09:37 RB [id number] 06/03/24 09:40 RB Document 06/07/24 09:03 KW [id number] 06/07/24 09:06 KW Document 06/10/24 09:29 GM [id number] 06/10/24 09:40 GM Document 06/14/24 08:17 BMF [id number] 06/14/24 08:19 BMF Document 06/17/24 09:31 KW [id number] 06/17/24 09:42 KW 05/24/24 05/27/24 05/31/24 09:03 09:02 09:04 - Today's Visit Information Type of service Nurse-only Follow-up Visit Nurse-only Visit (Physician/ARMORING MACHINE OPERATOR Visit ) Arrival Mode Ambulatory Ambulatory Ambulatory Transfer Assistance None None Patient Identification Verified (Name & Yes Yes ) Patient Requires Transmission-Based No No No Precautions Vital Signs Temperature (97.8 F-99.1 F) 96.4 F L 97.6 F L 98 F Temperature Source Temporal Temporal Temporal Pulse Rate (60-100) 95 98 93 Pulse Location Monitor Monitor Monitor Respiratory Rate (12-18) 16 16 16 Respiratory rate source Observation Observation Observation Oxygen Delivery Method Room Air Room Air Blood Pressure (90/60-120/80) 143/48 H 142/51 H 143/87 H Blood Pressure Mean (mm Hg) 79 81 105 Source Monitor Monitor Monitor Position Sitting Sitting Sitting Blood Pressure Location Left Arm Right Arm Right Arm History Since Last Visit- (Skip if this is Patient's initial visit) Have you changed medications since your No No No last visit? Any new allergies or adverse reactions No No No Had a fall/change in ADL's that may No No No increase risk of falls Signs or symptoms of abuse and/or No No No neglect since last visit Have you been in the hospital since your No No No last visit? Has dressing in place as prescribed Yes Yes Yes Has compression in place as prescribed Yes Yes Yes Has offloadiing in place as prescribed N/A N/A N/A Experienced any changes in pain level or No No No management Left Footwear Regular Shoe Regular Shoe Regular Shoe Right Footwear Regular Shoe Regular Shoe Regular Shoe Pain Scale: 0-10 Numeric Is Patient Pain Free? Yes Yes Yes 06/03/24 06/07/24 06/10/24 09:37 09:03 09:29 - Today's Visit Information Type of service Follow-up Visit Nurse-only Follow-up Visit (Physician/ARMORING MACHINE OPERATOR Visit (Physician/ARMORING MACHINE OPERATOR ) ) Arrival Mode Ambulatory Ambulatory Ambulatory Transfer Assistance None None Patient Identification Verified (Name & Yes Yes Yes ) Patient Requires Transmission-Based No No Precautions Vital Signs Temperature (97.8 F-99.1 F) 97.3 F L 97.9 F 97.8 F Temperature Source Temporal Temporal Temporal Pulse Rate (60-100) 91 96 82 Pulse Location Monitor Monitor Monitor Respiratory Rate (12-18) 18 18 16 Respiratory rate source Observation Observation Observation Oxygen Delivery Method Room Air Room Air Blood Pressure (90/60-120/80) 139/47 H 115/57 L 132/54 H Blood Pressure Mean (mm Hg) 77 76 80 Source Monitor Monitor Monitor Position Semi-Fowlers Semi-Fowlers Sitting Blood Pressure Location Left Arm Left Arm Right Arm History Since Last Visit- (Skip if this is Patient's initial visit) Have you changed medications since your No No No last visit? Any new allergies or adverse reactions No No No Had a fall/change in ADL's that may No No No increase risk of falls Signs or symptoms of abuse and/or No No No neglect since last visit Have you been in the hospital since your No No No last visit? Has dressing in place as prescribed Yes Yes Yes Has compression in place as prescribed Yes Yes Yes Has offloadiing in place as prescribed N/A N/A N/A Experienced any changes in pain level or No No No management Left Footwear Regular Shoe Regular Shoe Regular Shoe Right Footwear Regular Shoe Regular Shoe Pain Scale: 0-10 Numeric Is Patient Pain Free? Yes Yes Yes 06/14/24 06/17/24 08:17 09:31 WC - Today's Visit Information Type of service Nurse-only Follow-up Visit Visit (Physician/ARMORING MACHINE OPERATOR ) Arrival Mode Ambulatory Ambulatory Transfer Assistance None Patient Identification Verified (Name & Yes Yes ) Patient Requires Transmission-Based No Precautions Vital Signs Temperature (97.8 F-99.1 F) 98.6 F 97.7 F L Temperature Source Temporal Temporal Pulse Rate (60-100) 94 85 Pulse Location Monitor Monitor Respiratory Rate (12-18) 16 18 Respiratory rate source Observation Observation Oxygen Delivery Method Room Air Room Air Blood Pressure (90/60-120/80) 149/34 H 135/43 H Blood Pressure Mean (mm Hg) 72 73 Source Monitor Monitor Position Sitting Semi-Fowlers Blood Pressure Location Right Arm Left Arm History Since Last Visit- (Skip if this is Patient's initial visit) Have you changed medications since your No No last visit? Any new allergies or adverse reactions No No Had a fall/change in ADL's that may No No increase risk of falls Signs or symptoms of abuse and/or No No neglect since last visit Have you been in the hospital since your No No last visit? Has dressing in place as prescribed Yes Yes Has compression in place as prescribed Yes Yes Has offloadiing in place as prescribed N/A N/A Experienced any changes in pain level or No No management Left Footwear Regular Shoe Regular Shoe Right Footwear Regular Shoe Regular Shoe Pain Scale: 0-10 Numeric Is Patient Pain Free? Yes Yes WC - Nurse 1 - General Ulcer Measurement Start: 05/24/24 09:02 Freq: Status: Active Protocol: Activity Type Activity Date Activity User E-sign Co-sign Detail Recorded Client Recorded Date Recorded By Document 05/24/24 09:03 DL [id number] 05/24/24 09:06 DL Document 05/27/24 09:02 CP [id number] 05/27/24 09:11 CP Document 06/03/24 09:37 RB [id number] 06/03/24 09:40 RB Document 06/07/24 09:06 KW [id number] 06/07/24 09:06 KW Document 06/10/24 09:29 GM [id number] 06/10/24 09:40 GM Document 06/17/24 09:31 KW [id number] 06/17/24 09:42 KW 05/24/24 05/27/24 06/03/24 09:03 09:02 09:37 Wound Center Nurse 1 #4- LLE ANTERIOR CLUSTER -Combined with other wound No -Current Size (cm) - Length 1.5 1 -Current Size (cm) - Width 3 2.9 -Current Size (cm) - Depth 0.1 0.1 -Total Square Cm 4.5 2.9 -Date of Last Picture (Recall this field) -Photo Taken -Epithelialization -Tunneling No -Undermining/Tunneling No -Circular Undermining No -Change in Wound Grade/Stage -Exudate Amt Small Medium -Exudate Type Serosanguineous Serosanguineous -Wound Margin Flat & Intact Distinct, Outline Attached -Granulation Amt Large (67-100%) Medium (34-66%) -Granulation Quality Red Napoleon -Slough/Fibrin Yes Yes -Necrosis Amt Small (1-33%) Medium (34-66%) -Necrotic Tissue Type Adherent Slough Adherent Slough -Structure Exposed N/A N/A -Texture (Lety-wound Skin Appearance) No Abnormality Assessed -Moisture (Lety-wound Skin Appearance) Dry/Scaly Assessed,Dry/ Scaly -Color (Lety-wound Skin Appearance) Erythema Assessed -Temperature (Lety-wound Skin No Abnormality No Abnormality Appearance) (Pt Warm) (Pt Warm) -Tenderness on Palpation (Lety-wound No Skin Appearance) -Ulcer Cleansing Soap and Water Wound Cleanser -Foul Odor after Cleansing No No -Anesthetic Used 4% Lidocaine 5% Lidocaine Solution Gel Lower Limb Edema Present Yes Yes Left Calf (cm) 36.3 36.5 Left Ankle (cm) 27 26 36 Left Foot (cm) 26.2 06/07/24 06/10/24 06/17/24 09:06 09:29 09:31 Wound Center Nurse 1 #4- LLE ANTERIOR CLUSTER -Combined with other wound -Current Size (cm) - Length 0.5 0.5 -Current Size (cm) - Width 1.2 1 -Current Size (cm) - Depth 0.1 0.1 -Total Square Cm 0.60 0.5 -Date of Last Picture (Recall this 06/17/24 field) -Photo Taken No -Epithelialization Medium 34-66% -Tunneling No -Undermining/Tunneling No -Circular Undermining No -Change in Wound Grade/Stage No -Exudate Amt Medium Small -Exudate Type Yellow/Green Serosanguineous -Wound Margin Distinct, Distinct, Outline Outline Attached Attached -Granulation Amt Large (67-100%) Small (1-33%) -Granulation Quality Red Red -Slough/Fibrin No -Necrosis Amt -Necrotic Tissue Type -Structure Exposed -Texture (Lety-wound Skin Appearance) Assessed Assessed -Moisture (Lety-wound Skin Appearance) Assessed Assessed -Color (Lety-wound Skin Appearance) Assessed, Assessed Erythema -Temperature (Lety-wound Skin No Abnormality No Abnormality Appearance) (Pt Warm) (Pt Warm) -Tenderness on Palpation (Lety-wound No Skin Appearance) -Ulcer Cleansing Soap and Water Soap and Water -Foul Odor after Cleansing No -Anesthetic Used 5% Lidocaine 5% Lidocaine Gel Gel Lower Limb Edema Present No Left Calf (cm) 36.5 36.4 37 Left Ankle (cm) 26.6 26.8 26.5 Left Foot (cm) WC - Nurse 2 - General Ulcer CM Notes Start: 05/24/24 09:02 Freq: Status: Active Protocol: Activity Type Activity Date Activity User E-sign Co-sign Detail Recorded Client Recorded Date Recorded By Document 05/27/24 09:32 [facility] [id number] 05/27/24 09:35 [facility] Document 06/03/24 09:44 [facility] [id number] 06/03/24 09:49 [facility] Document 06/10/24 10:25 [facility] [id number] 06/10/24 10:29 [facility] Document 06/17/24 09:52 [facility] [id number] 06/17/24 10:02 [facility] 05/27/24 06/03/24 06/10/24 09:32 09:44 10:25 Wound Center Nurse 2 #4- LLE ANTERIOR CLUSTER -Time 09:33 09:47 10:26 -Correct Patient Yes Yes Yes -Correct Side, Site, Position Yes Yes Yes -Correct Procedure Yes Yes Yes -Procedure Performed Yes Yes Yes -Type of Procedure Debridement Debridement Debridement -Clinical Debridement Subcutaneous Subcutaneous Subcutaneous -Tissue Removed Subcutaneous Subcutaneous Subcutaneous -Post Debridement (cm) - Length 1.3 1 0.5 -Post Debridement (cm) - Width 2 1.5 0.8 -Post Debridement (cm) - Depth 0.1 0.1 0.1 -Total Square (Post) (cm) 2.6 1.5 0.40 -Area of Debridement (cm) - Length 1.3 1 0.5 -Area of Debridement (cm) - Width 2 1.5 0.8 -Total Square (Area) (cm) 2.6 1.5 0.40 -Tunneling No No No -Undermining/Tunneling No No No -Circular Undermining No No No -Wound/Ulcer Outcome Not Healed Not Healed Not Healed -Ulcer Cleansing Rinsed/ Rinsed/ Rinsed/ Irrigated with Irrigated with Irrigated with Saline Saline Saline -Foul Odor after Cleansing No No No -Bioengineered Tissue No No No -Bleeding Controlled with Pressure Pressure Pressure -Treatment Response Procedure Procedure Tolerated Well Tolerated Well -Debridement - Subq, 1st 20sq cm Yes Yes Yes Pain Scale: 0-10 Numeric Is Patient Pain Free? Yes Yes Yes 06/17/24 09:52 Wound Center Nurse 2 #4- LLE ANTERIOR CLUSTER -Time 09:54 -Correct Patient -Correct Side, Site, Position -Correct Procedure -Procedure Performed No -Type of Procedure -Clinical Debridement -Tissue Removed -Post Debridement (cm) - Length 0 -Post Debridement (cm) - Width 0 -Post Debridement (cm) - Depth 0 -Total Square (Post) (cm) 0 -Area of Debridement (cm) - Length 0 -Area of Debridement (cm) - Width 0 -Total Square (Area) (cm) 0 -Tunneling -Undermining/Tunneling -Circular Undermining -Wound/Ulcer Outcome Healed- Epithelialized -Ulcer Cleansing -Foul Odor after Cleansing -Bioengineered Tissue -Bleeding Controlled with NA -Treatment Response -Debridement - Subq, 1st 20sq cm Pain Scale: 0-10 Numeric Is Patient Pain Free? Yes WC - Nurse 3 - General Ulcer D/C NN Start: 05/24/24 09:02 Freq: Status: Active Protocol: Activity Type Activity Date Activity User E-sign Co-sign Detail Recorded Client Recorded Date Recorded By Document 05/24/24 09:03 DL [id number] 05/24/24 09:06 DL Document 05/27/24 10:15 CP [id number] 05/27/24 10:17 CP Document 05/31/24 09:04 BMF [id number] 05/31/24 09:05 BMF Document 06/03/24 10:22 RB [id number] 06/03/24 10:24 RB Document 06/07/24 09:03 KW [id number] 06/07/24 09:06 KW Document 06/10/24 10:45 GM [id number] 06/10/24 10:45 GM Document 06/14/24 08:17 BMF [id number] 06/14/24 08:19 BMF Document 06/17/24 10:15 DL [id number] 06/17/24 10:17 DL 05/24/24 05/27/24 05/31/24 09:03 10:15 09:04 Vital Signs Temperature (97.8 F-99.1 F) 96.4 F L 98 F Temperature Source Temporal Temporal Pulse Rate (60-100) 95 93 Pulse Location Monitor Monitor Respiratory Rate (12-18) 16 16 Respiratory rate source Observation Observation Oxygen Delivery Method Room Air Room Air Blood Pressure (90/60-120/80) 143/48 H 143/87 H Blood Pressure Mean (mm Hg) 79 105 Source Monitor Monitor Position Sitting Sitting Blood Pressure Location Left Arm Right Arm Pain Scale: 0-10 Numeric Is Patient Pain Free? Yes Yes Yes Teaching: Wound Center Compression Wraps & Stockings -Person Taught -Teaching Method -Response to teaching Wound Care Center Nurse 3 #4- LLE ANTERIOR CLUSTER -Ulcer Cleansing Soap and Water Rinsed/ Soap and Water Irrigated with Saline -Foul Odor after Cleansing No No -Primary Dressing Applied AMD Dressing C Hydrogel, Collagen Powder 4x4 Collagen Powder -Other Dressing lila puracol powder abd -Primary Dressing Covered/Secured with Dry Gauze & Dry Gauze & Roll Gauze, Roll Gauze Secured with Tape -Other Covering amd to pad hydrogel achilles. pt c/ o tender w/ wrap -AMD Dressing 4x4 1 Right -Other Left -Lotion applied to leg before Yes compression wrap -Multi-Layered Wrap Application Multi-Layer Multi-Layer Multi-Layer Comp - Left ($) Comp - Left ($) Comp - Left ($) Treatment Response Procedure Procedure Tolerated Well Tolerated Well WC - Visit Discharge Discharge Condition Stable Stable Stable Ambulatory Status Ambulatory Ambulatory Ambulatory Transportation Private Auto Private Auto Private Auto Medication Reconcilliation completed & provided to patient/care provider Clinical Summary of Care Provided Yes #4- LLE ANTERIOR CLUSTER -Ulcer Cleansing -Foul Odor after Cleansing -Primary Dressing Applied -Other Dressing -Primary Dressing Covered/Secured with -Collagen Powder -Silicone Border Foam 4x4 -Wound Comment(s) Left -Lotion applied to leg before compression wrap -Multi-Layered Wrap Application Treatment Response 06/03/24 06/07/24 06/10/24 10:22 09:03 10:45 Vital Signs Temperature (97.8 F-99.1 F) 97.9 F Temperature Source Temporal Pulse Rate (60-100) 96 Pulse Location Monitor Respiratory Rate (12-18) 18 Respiratory rate source Observation Oxygen Delivery Method Room Air Blood Pressure (90/60-120/80) 115/57 L Blood Pressure Mean (mm Hg) 76 Source Monitor Position Semi-Fowlers Blood Pressure Location Left Arm Pain Scale: 0-10 Numeric Is Patient Pain Free? Yes Yes Yes Teaching: Wound Center Compression Wraps & Stockings -Person Taught Patient -Teaching Method Discussion, Demonstration -Response to teaching Verbalize Understanding Wound Care Center Nurse 3 #4- LLE ANTERIOR CLUSTER -Ulcer Cleansing Rinsed/ Soap and Water Irrigated with Saline -Foul Odor after Cleansing -Primary Dressing Applied -Other Dressing purochol/ purachol powder hydrogel topped with hydrogel -Primary Dressing Covered/Secured with -Other Covering -AMD Dressing 4x4 Right -Other single layer tubigrip/ circaid applied but too large will let doctor know Left -Lotion applied to leg before compression wrap -Multi-Layered Wrap Application Unna Boot - Unna Boot - Left ($) Left ($) Treatment Response Procedure Tolerated Well WC - Visit Discharge Discharge Condition Stable Stable Stable Ambulatory Status Ambulatory Ambulatory Ambulatory Transportation [facility] [employer] Auto Medication Reconcilliation completed & No No provided to patient/care provider Clinical Summary of Care Provided Yes Yes #4- LLE ANTERIOR CLUSTER -Ulcer Cleansing Not Cleansed -Foul Odor after Cleansing No -Primary Dressing Applied -Other Dressing -Primary Dressing Covered/Secured with -Collagen Powder -Silicone Border Foam 4x4 -Wound Comment(s) used her supplies Left -Lotion applied to leg before No compression wrap -Multi-Layered Wrap Application Unna Boot - Left ($) Treatment Response 06/14/24 06/17/24 08:17 10:15 Vital Signs Temperature (97.8 F-99.1 F) 98.6 F Temperature Source Temporal Pulse Rate (60-100) 94 Pulse Location Monitor Respiratory Rate (12-18) 16 Respiratory rate source Observation Oxygen Delivery Method Room Air Blood Pressure (90/60-120/80) 149/34 H Blood Pressure Mean (mm Hg) 72 Source Monitor Position Sitting Blood Pressure Location Right Arm Pain Scale: 0-10 Numeric Is Patient Pain Free? Yes Yes Teaching: Wound Center Compression Wraps & Stockings -Person Taught -Teaching Method -Response to teaching Wound Care Center Nurse 3 #4- LLE ANTERIOR CLUSTER -Ulcer Cleansing -Foul Odor after Cleansing -Primary Dressing Applied -Other Dressing -Primary Dressing Covered/Secured with -Other Covering -AMD Dressing 4x4 Right -Other Left -Lotion applied to leg before compression wrap -Multi-Layered Wrap Application Treatment Response WC - Visit Discharge Discharge Condition Stable Stable Ambulatory Status Ambulatory Ambulatory Transportation Private ShieldEffect Auto Medication Reconcilliation completed & provided to patient/care provider Clinical Summary of Care Provided #4- LLE ANTERIOR CLUSTER -Ulcer Cleansing Soap and Water Rinsed/ Irrigated with Saline -Foul Odor after Cleansing No -Primary Dressing Applied Collagen Powder Silicone Border Foam 4x4 -Other Dressing hydrogel -Primary Dressing Covered/Secured with Dry Gauze -Collagen Powder 1 -Silicone Border Foam 4x4 1 -Wound Comment(s) Healed, pad and protect. Discharge. Circ Aids applied, pt instructed on application. Left -Lotion applied to leg before compression wrap -Multi-Layered Wrap Application Unna Boot - Left ($) Treatment Response Procedure Procedure Tolerated Well Tolerated Well Assessment/Plan Assessment/Plan (1) Non-pressure chronic ulcer of left calf with fat layer exposed: CODE(S): L97.222 - Non-pressure chronic ulcer of left calf with fat layer exposed (2) Venous stasis dermatitis of left lower extremity: CODE(S): I87.2 - Venous insufficiency (chronic) (peripheral) (3) Leg edema: CODE(S): R60.0 - Localized edema PLAN: Plan Patient seen and evaluated Pre-debridement: Lateral LLE cluster: healed; Anterior LLE cluster: Healed. Ulceration did not undergo debridement as noted in the clinical panel above. Postdebridement measurement: Lateral LLE cluster remains healed; Anterior LLE cluster: Healed. No signs of infection. Will continue to pad and protect skin for next 7 to 10 days. She does continue to wear compression stocking to the right lower extremity and will bolster with Juxtalite compression. There is reduction in the ulcerations size versus previous visit with healed status achieved Edema controlled and maintained with compression. She has completed all 10 applications of EpiFix. She is to continue to elevate lower extremities at all times of rest to aid in edema control Recommend continued use of compression stockings as her ulcerations have healed. Compression recommended 20 to 30 mmHg. Discussed signs and symptoms of infection. Discussed if she notices increasing redness about the ulcer sites that moves up the leg or if red streaking is noted up the leg, purulent drainage from the wound sites, increasing foul odor from the wound, or if she experiences fever greater than 101 degree accompanied by nausea, vomiting, chills of these are signs of a progressing infection and she should report to the ED to receive IV antibiotics and further evaluation. She is understanding of this today. The following work up and care recommendations were made: Dressing: Compression stocking 20 to 30 mmHg to knee-high right lower extremity. Wash: Soap and water Tissue growth optimization: None Offload: Compression stockings and elevation of the lower extremities. Vascular: Venous Doppler performed 12/09/2023 notes acute DVT left gastroc vein with chronic changes in the left popliteal vein. Edema: Continue elevation of lower extremities at all times of rest and continue compression stocking 20 to 30 mmHg. Infection: No signs of infection Imaging: Radiographs 12/09/2023 of the right foot demonstrates diffuse arthritis. No signs of infection. Pain: May take extra strength Tylenol for discomfort Host factors: Chronic venous stasis and lower extremity edema. At this time she is healed and will be discharged from the wound care center today. She may follow at the wound care center as needed for any future ulcerations or other wound [email or web address]
--- NOTE | 2024-06-18 09:17 | WC ---
PHOTO 06/17/24 ALVARO
== END 2024-06-18 11:06 | disposition home or self-care (01) ==
LOC: WC 09:15
PROVIDERS: PCP Nurse Practitioner Family; Referring Provider Student in an Organized Health Care Education/Training Program; Visit Provider Student in an Organized Health Care Education/Training Program
DX: I87.332 Chronic venous hypertension (idiopathic) with ulcer and inflammation of left lower extremity (principal); L97.222 Non-pressure chronic ulcer of left calf with fat layer exposed; I87.2 Venous insufficiency (chronic) (peripheral); R60.0 Localized edema
CPT/HCPCS: 11042; 29580; 29581; 99213; G0463

== ENCOUNTER → 2024-10-25 | Outpatient (CLI) | payer MEDICARE, SELFPAY | END | disposition home or self-care (01) | PROVIDERS: PCP Nurse Practitioner Family; Referring Provider Internal Medicine Nephrology; Visit Provider Internal Medicine Nephrology | DX: N18.31 Chronic kidney disease, stage 3a (principal) | CPT/HCPCS: 76770 ==

== ENCOUNTER → 2024-10-26 | Outpatient (CLI) | payer MEDICARE, SELFPAY ==
[2024-10-26 12:51] LABS: Hematocrit 28.6 % (37-47); Hemoglobin 9.4 g/dL (12.0-15.0); Immature Granulocytes Count 0.020 X10^3/uL (0.0-0.0); Immature Reticulocyte Fraction 13.70 % (3.00-15.90); Mean Corp Hgb Conc 32.9 g/dL (32-36); Mean Corpuscular Volume 98.3 fL (81-99); Mean Platelet Vol. 8.4 fl (6.2-12.0); NRBC Flagged by Analyzer 0 % (0-5); Platelet Count 203 K/mm3 (150-450); RBC Distribution Width CV 15.0 % (11.6-14.6); RBC Distribution Width SD 53.9 fl (35.1-43.9); Red Blood Count 2.91 M/mm3 (4.2-5.4); Reticulocyte Count 5.19 % (0.5-1.5); White Blood Count 8.1 K/mm3 (4.4-11.0)
[2024-10-26 13:51] LABS: AST(SGOT) 23 U/L (<=31); Alanine Aminotransfer ALT/SGPT 14 U/L (<=34); Albumin, Serum 3.8 g/dL (3.4-4.8); Alkaline Phosphatase 90 U/L (35-104); Anion Gap 8 (5-15); BUN 23 mg/dL (4-19); BUN/Creat Ratio 17.5 RATIO (10-20); Calcium,Total 9.3 mg/dL (7.6-11.0); Carbon Dioxide 24.5 mmol/L (21.0-32.0); Chloride 109 mmol/L (98-108); Ferritin 154 ng/mL (22-378); Globulin 2.5 g/dL (2.2-4.2); Glucose 85 mg/dL (70-99); Iron 59 ug/dL (50-170); Iron Binding Capacity,Unsat 143 ug/dL (228-428); LDH 245 U/L (84-246); Potassium 4.7 mmol/L (3.3-5.1)
[2024-10-26 13:57] LABS: Albumin, Serum 3.7 g/dL (3.4-4.8); Anion Gap 10 (5-15); BUN 23 mg/dL (4-19); BUN/Creat Ratio 17.8 RATIO (10-20); Calcium,Total 9.3 mg/dL (7.6-11.0); Carbon Dioxide 22.1 mmol/L (21.0-32.0); Chloride 110 mmol/L (98-108); Glucose 86 mg/dL (70-99); Potassium 4.4 mmol/L (3.3-5.1)
[2024-10-26 14:00] LABS: Iron Binding Capacity,Total 202 ug/dL (250-450)
[2024-10-26 14:27] LABS: Creatinine, Urine (random) 35.80 mg/dL (28.00-217.00); Protein, Urine (Random) < 6.0 mg/dL (0.0-12.0); Protein:Creat Ratio 108 mg/g CRE (0-200)
[2024-10-26 20:41] LABS: Xtra Tube EP Lab EXTRA TUBE
== END | disposition home or self-care (01) ==
LOC: LAB 12:21
PROVIDERS: Internal Medicine Hematology & Oncology; PCP Nurse Practitioner Family; Referring Provider Internal Medicine Nephrology; Visit Provider Internal Medicine Nephrology
DX: N18.32 Chronic kidney disease, stage 3b (principal); D63.1 Anemia in chronic kidney disease
CPT/HCPCS: 36415; 80053; 80069; 82570; 82728; 83540; 83550; 83615; 84156; 85025; 85045

== ENCOUNTER → 2025-04-05 | Outpatient (CLI) | payer MEDICARE, SELFPAY ==
[2025-04-05 10:13] LABS: Hematocrit 26.8 % (37-47); Hemoglobin 8.4 g/dL (12.0-15.0); Immature Granulocytes Count 0.040 X10^3/uL (0.0-0.0); Mean Corp Hgb Conc 31.3 g/dL (32-36); Mean Corpuscular Volume 103.9 fL (81-99); Mean Platelet Vol. 7.9 fl (6.2-12.0); NRBC Flagged by Analyzer 0 % (0-5); Platelet Count 222 K/mm3 (150-450); RBC Distribution Width CV 17.0 % (11.6-14.6); RBC Distribution Width SD 63.9 fl (35.1-43.9); Red Blood Count 2.58 M/mm3 (4.2-5.4); White Blood Count 8.0 K/mm3 (4.4-11.0)
[2025-04-05 10:41] LABS: Albumin, Serum 3.3 g/dL (3.4-4.8); Anion Gap 9 (5-15); BUN 12 mg/dL (4-19); BUN/Creat Ratio 9.8 RATIO (10-20); Calcium,Total 9.2 mg/dL (7.6-11.0); Carbon Dioxide 22.7 mmol/L (21.0-32.0); Chloride 110 mmol/L (98-108); Glucose 97 mg/dL (70-99); Potassium 3.9 mmol/L (3.3-5.1)
[2025-04-05 11:54] LABS: Creatinine, Urine (random) 169.00 mg/dL (28.00-217.00); Protein, Urine (Random) 16.8 mg/dL (0.0-12.0); Protein:Creat Ratio 99 mg/g CRE (0-200)
== END | disposition home or self-care (01) ==
LOC: PAVLAB 09:49
PROVIDERS: PCP Nurse Practitioner Family; Referring Provider Internal Medicine Nephrology; Visit Provider Internal Medicine Nephrology
DX: N18.31 Chronic kidney disease, stage 3a (principal)
CPT/HCPCS: 36415; 80069; 82570; 84156; 85025